=== PATIENT | female | born 1940 | race Caucasian/White ===

== ENCOUNTER 2021-08-03 05:00 | Outpatient (REF) | payer MEDICARE, SELFPAY ==
[2021-08-03 08:24] LABS: Absolute Lymphocyte Count 1.92 X10^3/uL (0.83-4.51); Absolute Neutrophil Count 4.1 X10^3/uL (2.0-7.7); Basophil# 0.05 X10^3/uL; Basophil% 0.7 % (0-1); Eosinophil# 0.49 X10^3/uL; Eosinophils% 6.8 % (0-5); Lymphocyte # 1.92 X10^3/ul (0.83-4.51); Lymphocyte % 26.7 % (19-41); Mean Corp Hgb Conc 33.3 g/dL (32-36); Mean Corpuscular Hgb 29.7 pg (27.0-32.0); Mean Platelet Vol. 9.3 fl (6.2-12.0); Monocyte# 0.57 X10^3/uL; Monocyte% 7.9 % (0-10); NRBC Flagged by Analyzer 0 % (0-5); Neutrophil # 4.14 X10^3/uL (2.7-7.7); Neutrophil % 57.6 % (47-70); Platelet Count 170 K/mm3 (150-450); RBC Distribution Width CV 16.1 % (11.6-14.6); RBC Distribution Width SD 53.4 fl (35.1-43.9); Red Blood Count 4.38 M/mm3 (4.2-5.4); White Blood Count 7.2 K/mm3 (4.4-11.0)
[2021-08-03 08:35] LABS: Anion Gap 9 (5-15); BUN 25 mg/dL (7-18); BUN/Creat Ratio 26.8 RATIO (10-20); Calcium,Total 8.8 mg/dL (8.5-10.1); Chloride 107 mmol/L (98-107); Creatinine, Serum 0.93 mg/dL (0.55-1.02); EST Glomerular Filtration Rate 61 mL/min (>60); Est Glom Filt Rate - Afr Amer 74 mL/min (>60); Glucose 92 mg/dL (74-106); Sodium Level 139 mmol/L (136-145)
== END 2021-08-03 23:59 | disposition home or self-care (01) ==
LOC: OLS.WHLTSB 05:00
PROVIDERS: PCP Family Medicine; Visit Provider Family Medicine
DX: M15.9 Polyosteoarthritis, unspecified (principal); Z23 Encounter for immunization; Z80.0 Family history of malignant neoplasm of digestive organs; Z86.010 Personal history of colon polyps; Z96.649 Presence of unspecified artificial hip joint
CPT/HCPCS: 36415; 80048; 85025

== ENCOUNTER 2021-10-15 04:00 | Outpatient (REF) | payer MEDICARE, SELFPAY ==
[2021-10-15 10:52] LABS: Hematocrit 42.4 % (37-47); Hemoglobin 13.9 g/dL (12.0-15.0); Mean Corp Hgb Conc 32.8 g/dL (32-36); Mean Corpuscular Hgb 29.4 pg (27.0-32.0); Mean Corpuscular Volume 89.8 fL (81-99); Mean Platelet Vol. 9.8 fl (6.2-12.0); Platelet Count 157 K/mm3 (150-450); RBC Distribution Width CV 15.8 % (11.6-14.6); RBC Distribution Width SD 52.1 fl (35.1-43.9); Red Blood Count 4.72 M/mm3 (4.2-5.4); White Blood Count 7.4 K/mm3 (4.4-11.0)
[2021-10-15 11:14] LABS: Anion Gap 8 (5-15); BUN 28 mg/dL (7-18); BUN/Creat Ratio 23.7 RATIO (10-20); Calcium,Total 8.8 mg/dL (8.5-10.1); Chloride 103 mmol/L (98-107); Creatinine, Serum 1.18 mg/dL (0.55-1.02); EST Glomerular Filtration Rate 47 mL/min (>60); Est Glom Filt Rate - Afr Amer 57 mL/min (>60); Glucose 86 mg/dL (74-106); Potassium 3.3 mmol/L (3.5-5.1); Sodium Level 138 mmol/L (136-145); Thyroid Stim Hormone (TSH) 0.91 uIU/mL (0.358-3.74)
== END 2021-10-15 23:59 | disposition home or self-care (01) ==
LOC: OLS.WHLTSB 04:00
PROVIDERS: PCP Family Medicine; Referring Provider Family Medicine; Visit Provider Family Medicine
DX: M15.9 Polyosteoarthritis, unspecified (principal); R60.0 Localized edema; R12 Heartburn; G90.09 Other idiopathic peripheral autonomic neuropathy; R32 Unspecified urinary incontinence; Z23 Encounter for immunization
CPT/HCPCS: 36415; 80048; 84443; 85027

== ENCOUNTER → 2022-01-31 | Outpatient (REF) | payer MEDICARE, SELFPAY ==
[2022-01-31 07:02] LABS: Basophil# 0.04 X10^3/uL; Basophil% 0.5 % (0-1); Eosinophil# 0.29 X10^3/uL; Hematocrit 38.6 % (37-47); Hemoglobin 12.6 g/dL (12.0-15.0); Lymphocyte % 31.6 % (19-41); Mean Corp Hgb Conc 32.6 g/dL (32-36); Mean Corpuscular Hgb 29.4 pg (27.0-32.0); Mean Platelet Vol. 9.6 fl (6.2-12.0); Monocyte# 0.63 X10^3/uL; Monocyte% 8.6 % (0-10); NRBC Flagged by Analyzer 0 % (0-5); Neutrophil # 4.01 X10^3/uL (2.7-7.7); Platelet Count 139 K/mm3 (150-450); RBC Distribution Width CV 15.9 % (11.6-14.6); Red Blood Count 4.29 M/mm3 (4.2-5.4); White Blood Count 7.3 K/mm3 (4.4-11.0)
[2022-01-31 07:16] LABS: Anion Gap 8 (5-15); BUN 31 mg/dL (7-18); BUN/Creat Ratio 31.1 RATIO (10-20); Calcium,Total 8.6 mg/dL (8.5-10.1); Chloride 108 mmol/L (98-107); EST Glomerular Filtration Rate 57 mL/min (>60); Est Glom Filt Rate - Afr Amer 69 mL/min (>60); Glucose 122 mg/dL (74-106); Potassium 3.3 mmol/L (3.5-5.1); Sodium Level 141 mmol/L (136-145)
== END | disposition home or self-care (01) ==
LOC: OLS.WHLTSB 05:00
PROVIDERS: PCP Family Medicine; Referring Provider Family Medicine; Visit Provider Family Medicine
DX: M15.9 Polyosteoarthritis, unspecified (principal); Z23 Encounter for immunization; Z80.0 Family history of malignant neoplasm of digestive organs; Z86.010 Personal history of colon polyps; Z96.649 Presence of unspecified artificial hip joint
CPT/HCPCS: 36415; 80048; 85025

== ENCOUNTER → 2022-04-19 | Outpatient (REF) | payer OTHER, SELFPAY ==
[2022-04-19 09:31] LABS: Cholesterol 151 mg/dL (200); High Density Lipoprotein 38 mg/dL; Potassium 3.3 mmol/L (3.5-5.1); Triglycerides 178 mg/dL; Very Low Density Lipoprotein 36 mg/dL (5-40)
== END ==
LOC: OLS.WHLTSB 05:00
PROVIDERS: PCP Family Medicine; Visit Provider Family Medicine
DX: E78.00 Pure hypercholesterolemia, unspecified (principal); M15.9 Polyosteoarthritis, unspecified; B35.4 Tinea corporis; H04.129 Dry eye syndrome of unspecified lacrimal gland; R60.0 Localized edema; R48.8 Other symbolic dysfunctions; R12 Heartburn; G90.09 Other idiopathic peripheral autonomic neuropathy
CPT/HCPCS: 36415; 80061; 84132

== ENCOUNTER → 2022-07-20 | Outpatient (REF) | payer OTHER, SELFPAY ==
[2022-07-20 09:17] LABS: Absolute Lymphocyte Count 2.22 X10^3/uL (0.83-4.51); Absolute Neutrophil Count 3.6 X10^3/uL (2.0-7.7); Basophil# 0.05 X10^3/uL; Basophil% 0.7 % (0-1); Eosinophil# 0.36 X10^3/uL; Eosinophils% 5.3 % (0-5); Hematocrit 42.1 % (37-47); Hemoglobin 13.6 g/dL (12.0-15.0); Lymphocyte # 2.22 X10^3/ul (0.83-4.51); Lymphocyte % 32.6 % (19-41); Mean Corp Hgb Conc 32.3 g/dL (32-36); Mean Corpuscular Hgb 29.2 pg (27.0-32.0); Mean Corpuscular Volume 90.3 fL (81-99); Mean Platelet Vol. 9.8 fl (6.2-12.0); Monocyte# 0.59 X10^3/uL; Monocyte% 8.7 % (0-10); NRBC Flagged by Analyzer 0 % (0-5); Neutrophil # 3.56 X10^3/uL (2.7-7.7); Neutrophil % 52.4 % (47-70); Platelet Count 141 K/mm3 (150-450); RBC Distribution Width CV 16.7 % (11.6-14.6); RBC Distribution Width SD 54.7 fl (35.1-43.9); Red Blood Count 4.66 M/mm3 (4.2-5.4); White Blood Count 6.8 K/mm3 (4.4-11.0)
[2022-07-20 09:34] LABS: Anion Gap 12 (5-15); BUN 25 mg/dL (7-18); BUN/Creat Ratio 22.1 RATIO (10-20); Calcium,Total 8.8 mg/dL (8.5-10.1); Chloride 105 mmol/L (98-107); Cholesterol 155 mg/dL (200); Creatinine, Serum 1.13 mg/dL (0.55-1.02); EST Glomerular Filtration Rate 49 mL/min (>60); Est Glom Filt Rate - Afr Amer 59 mL/min (>60); Glucose 95 mg/dL (74-106); High Density Lipoprotein 38 mg/dL; Potassium 3.7 mmol/L (3.5-5.1); Sodium Level 143 mmol/L (136-145); Triglycerides 160 mg/dL; Very Low Density Lipoprotein 32 mg/dL (5-40)
== END ==
LOC: OLS.WHLTSB 05:00
PROVIDERS: PCP Family Medicine; Visit Provider Family Medicine
DX: M15.9 Polyosteoarthritis, unspecified (principal); E55.9 Vitamin D deficiency, unspecified; I10 Essential (primary) hypertension; E78.00 Pure hypercholesterolemia, unspecified
CPT/HCPCS: 36415; 80048; 80061; 82306; 85025

== ENCOUNTER → 2023-01-17 | Outpatient (REF) | payer OTHER, SELFPAY ==
[2023-01-17 10:28] LABS: Anion Gap 7 (5-15); BUN 28 mg/dL (7-18); BUN/Creat Ratio 32.4 RATIO (10-20); Chloride 109 mmol/L (98-107); Cholesterol 196 mg/dL (200); Creatinine, Serum 0.86 mg/dL (0.55-1.02); EST Glomerular Filtration Rate 67 mL/min (>60); Est Glom Filt Rate - Afr Amer 81 mL/min (>60); Glucose 78 mg/dL (74-106); High Density Lipoprotein 39 mg/dL; Potassium 3.5 mmol/L (3.5-5.1); Sodium Level 144 mmol/L (136-145); Triglycerides 275 mg/dL; Very Low Density Lipoprotein 55 mg/dL (5-40)
[2023-01-17 10:31] LABS: Absolute Lymphocyte Count 2.14 X10^3/uL (0.83-4.51); Absolute Neutrophil Count 2.7 X10^3/uL (2.0-7.7); Basophil# 0.04 X10^3/uL; Basophil% 0.7 % (0-1); Eosinophil# 0.22 X10^3/uL; Eosinophils% 3.9 % (0-5); Hematocrit 43.3 % (37-47); Hemoglobin 13.9 g/dL (12.0-15.0); Lymphocyte # 2.14 X10^3/ul (0.83-4.51); Lymphocyte % 38.4 % (19-41); Mean Corp Hgb Conc 32.1 g/dL (32-36); Mean Corpuscular Hgb 29.4 pg (27.0-32.0); Mean Corpuscular Volume 91.5 fL (81-99); Mean Platelet Vol. 9.8 fl (6.2-12.0); NRBC Flagged by Analyzer 0 % (0-5); Neutrophil # 2.67 X10^3/uL (2.7-7.7); Neutrophil % 47.8 % (47-70); Platelet Count 125 K/mm3 (150-450); RBC Distribution Width CV 16.6 % (11.6-14.6); RBC Distribution Width SD 56.1 fl (35.1-43.9); Red Blood Count 4.73 M/mm3 (4.2-5.4); White Blood Count 5.6 K/mm3 (4.4-11.0)
== END ==
LOC: OLS.WHLTSB 05:00
PROVIDERS: PCP Family Medicine; Visit Provider Internal Medicine
DX: M15.9 Polyosteoarthritis, unspecified (principal); E78.00 Pure hypercholesterolemia, unspecified; I10 Essential (primary) hypertension
CPT/HCPCS: 36415; 80048; 80061; 85025

== ENCOUNTER → 2023-04-19 | Outpatient (REF) | payer MEDICARE, SELFPAY ==
[2023-04-19 09:58] LABS: Cholesterol 156 mg/dL (200); High Density Lipoprotein 49 mg/dL; Triglycerides 205 mg/dL; Very Low Density Lipoprotein 41 mg/dL (5-40)
== END ==
LOC: OLS.WHLTSB 05:00
PROVIDERS: PCP Family Medicine; Visit Provider Nurse Practitioner Adult Health
DX: E78.00 Pure hypercholesterolemia, unspecified (principal); M15.9 Polyosteoarthritis, unspecified; N32.81 Overactive bladder; E55.9 Vitamin D deficiency, unspecified
CPT/HCPCS: 36415; 80061

== ENCOUNTER → 2023-05-15 | Outpatient (REF) | payer MEDICARE, SELFPAY | LOC: OLS.WHLTSB 15:00 | PROVIDERS: PCP Family Medicine; Referring Provider Internal Medicine; Visit Provider Internal Medicine | DX: S81.802A Unspecified open wound, left lower leg, initial encounter (principal) | CPT/HCPCS: 87070; 87077; 87186; 87205 ==

== ENCOUNTER → 2023-06-02 11:53 | Outpatient (REF) | payer MEDICARE, SELFPAY | LOC: LABSPEC 11:53 | PROVIDERS: PCP Family Medicine; Visit Provider Internal Medicine | DX: A49.02 Methicillin resistant Staphylococcus aureus infection, unspecified site (principal) | CPT/HCPCS: 87070; 87075; 87077; 87186; 87205 ==

== ENCOUNTER → 2023-07-05 | Outpatient (REF) | payer MEDICARE, SELFPAY ==
[2023-07-05 06:21] LABS: Absolute Lymphocyte Count 2.48 X10^3/uL (0.83-4.51); Absolute Neutrophil Count 3.5 X10^3/uL (2.0-7.7); Basophil# 0.04 X10^3/uL; Basophil% 0.6 % (0-1); Eosinophil# 0.24 X10^3/uL; Eosinophils% 3.5 % (0-5); Hematocrit 40.5 % (37-47); Hemoglobin 13.3 g/dL (12.0-15.0); Lymphocyte # 2.48 X10^3/ul (0.83-4.51); Lymphocyte % 36.2 % (19-41); Mean Corp Hgb Conc 32.8 g/dL (32-36); Mean Corpuscular Hgb 30.1 pg (27.0-32.0); Mean Corpuscular Volume 91.6 fL (81-99); Mean Platelet Vol. 9.9 fl (6.2-12.0); Monocyte# 0.61 X10^3/uL; Monocyte% 8.9 % (0-10); NRBC Flagged by Analyzer 0 % (0-5); Neutrophil # 3.45 X10^3/uL (2.7-7.7); Neutrophil % 50.4 % (47-70); Platelet Count 180 K/mm3 (150-450); RBC Distribution Width CV 14.8 % (11.6-14.6); RBC Distribution Width SD 50.5 fl (35.1-43.9); Red Blood Count 4.42 M/mm3 (4.2-5.4); White Blood Count 6.9 K/mm3 (4.4-11.0)
[2023-07-05 06:57] LABS: ALB/GLOB Ratio 0.8 RATIO (0.9-2.4); AST(SGOT) 22 U/L (15-37); Alanine Aminotransfer ALT/SGPT 22 U/L (13-56); Albumin, Serum 3.3 g/dL (3.2-5.0); Alkaline Phosphatase 88 U/L (45-117); Anion Gap 9 (5-15); BUN 57 mg/dL (7-18); BUN/Creat Ratio 51.8 RATIO (10-20); Calcium,Total 8.8 mg/dL (8.5-10.1); Chloride 108 mmol/L (98-107); EST Glomerular Filtration Rate 50 mL/min (>60); Est Glom Filt Rate - Afr Amer 61 mL/min (>60); Globulin 3.9 g/dL (2.2-4.2); Glucose 97 mg/dL (74-106); Potassium 3.4 mmol/L (3.5-5.1); Protein, Total 7.2 g/dL (6.4-8.2); Sodium Level 142 mmol/L (136-145)
[2023-07-05 10:06] LABS: Vitamin B12 207 pg/mL (211-911); Vitamin D,25 Hydroxy 49.2 ng/mL
== END ==
LOC: OLS.WHLTSB 05:00
PROVIDERS: PCP Family Medicine
DX: F32.A Depression, unspecified (principal); R53.83 Other fatigue; E55.9 Vitamin D deficiency, unspecified; Z79.899 Other long term (current) drug therapy
CPT/HCPCS: 36415; 80053; 82306; 82607; 84443; 85025

== ENCOUNTER → 2023-07-13 | Outpatient (REF) | payer MEDICARE, SELFPAY ==
[2023-07-13 09:47] LABS: Potassium 3.6 mmol/L (3.5-5.1)
== END ==
LOC: OLS.WHLTSB 05:00
PROVIDERS: PCP Family Medicine; Visit Provider Internal Medicine
DX: E87.6 Hypokalemia (principal)
CPT/HCPCS: 36415; 84132

== ENCOUNTER → 2023-07-20 | Outpatient (REF) | payer MEDICARE, SELFPAY ==
[2023-07-20 08:52] LABS: Absolute Lymphocyte Count 2.27 X10^3/uL (0.83-4.51); Absolute Neutrophil Count 2.3 X10^3/uL (2.0-7.7); Basophil# 0.04 X10^3/uL; Basophil% 0.8 % (0-1); Eosinophil# 0.21 X10^3/uL; Eosinophils% 3.9 % (0-5); Hematocrit 41.8 % (37-47); Hemoglobin 13.4 g/dL (12.0-15.0); Lymphocyte # 2.27 X10^3/ul (0.83-4.51); Lymphocyte % 42.6 % (19-41); Mean Corp Hgb Conc 32.1 g/dL (32-36); Mean Corpuscular Hgb 29.7 pg (27.0-32.0); Mean Corpuscular Volume 92.7 fL (81-99); Mean Platelet Vol. 10.4 fl (6.2-12.0); Monocyte# 0.47 X10^3/uL; Monocyte% 8.8 % (0-10); NRBC Flagged by Analyzer 0 % (0-5); Neutrophil # 2.33 X10^3/uL (2.7-7.7); Neutrophil % 43.7 % (47-70); Platelet Count 159 K/mm3 (150-450); RBC Distribution Width CV 15.1 % (11.6-14.6); RBC Distribution Width SD 51.7 fl (35.1-43.9); Red Blood Count 4.51 M/mm3 (4.2-5.4); White Blood Count 5.3 K/mm3 (4.4-11.0)
[2023-07-20 09:16] LABS: Anion Gap 9 (5-15); BUN 39 mg/dL (7-18); BUN/Creat Ratio 34.5 RATIO (10-20); Calcium,Total 8.8 mg/dL (8.5-10.1); Chloride 106 mmol/L (98-107); Cholesterol 138 mg/dL (200); Creatinine, Serum 1.13 mg/dL (0.55-1.02); EST Glomerular Filtration Rate 49 mL/min (>60); Est Glom Filt Rate - Afr Amer 59 mL/min (>60); Glucose 92 mg/dL (74-106); High Density Lipoprotein 51 mg/dL; Potassium 3.5 mmol/L (3.5-5.1); Sodium Level 142 mmol/L (136-145); Triglycerides 105 mg/dL; Very Low Density Lipoprotein 21 mg/dL (5-40)
[2023-07-20 09:22] LABS: Vitamin D,25 Hydroxy 62.2 ng/mL
== END ==
LOC: OLS.WHLTSB 05:00
PROVIDERS: PCP Family Medicine; Visit Provider Nurse Practitioner Adult Health
DX: E78.00 Pure hypercholesterolemia, unspecified (principal); I10 Essential (primary) hypertension; E55.9 Vitamin D deficiency, unspecified; M15.9 Polyosteoarthritis, unspecified
CPT/HCPCS: 36415; 80048; 80061; 82306; 85025

== ENCOUNTER → 2023-09-12 | Outpatient (REF) | payer MEDICARE, SELFPAY ==
[2023-09-12 10:18] LABS: Vitamin B12 881 pg/mL (211-911)
== END ==
LOC: OLS.WHLTSB 05:00
PROVIDERS: PCP Family Medicine; Visit Provider Internal Medicine
DX: D51.9 Vitamin B12 deficiency anemia, unspecified (principal)
CPT/HCPCS: 36415; 82607

== ENCOUNTER → 2023-10-24 | Outpatient (REF) | payer MEDICARE, SELFPAY ==
[2023-10-24 09:37] LABS: Cholesterol 151 mg/dL (200); High Density Lipoprotein 53 mg/dL; Triglycerides 92 mg/dL; Very Low Density Lipoprotein 18 mg/dL (5-40)
== END ==
LOC: OLS.WHLTSB 07:32
PROVIDERS: PCP Family Medicine; Visit Provider Internal Medicine
DX: E78.00 Pure hypercholesterolemia, unspecified (principal)
CPT/HCPCS: 36415; 80061

== ENCOUNTER → 2023-12-05 | Outpatient (REF) | payer MEDICARE, SELFPAY ==
[2023-12-05 10:21] LABS: Vitamin B12 1190 pg/mL (211-911)
== END ==
LOC: OLS.WHLTSB 05:00
PROVIDERS: PCP Family Medicine; Visit Provider Internal Medicine
DX: D51.9 Vitamin B12 deficiency anemia, unspecified (principal)
CPT/HCPCS: 36415; 82607

== ENCOUNTER → 2024-01-16 | Outpatient (REF) | payer MEDICARE, SELFPAY ==
[2024-01-16 06:52] LABS: Absolute Lymphocyte Count 2.05 X10^3/uL (0.83-4.51); Absolute Neutrophil Count 3.7 X10^3/uL (2.0-7.7); Basophil# 0.04 X10^3/uL; Basophil% 0.6 % (0-1); Eosinophil# 0.22 X10^3/uL; Eosinophils% 3.3 % (0-5); Hematocrit 40.1 % (37-47); Hemoglobin 12.8 g/dL (12.0-15.0); Lymphocyte # 2.05 X10^3/ul (0.83-4.51); Lymphocyte % 31.1 % (19-41); Mean Corp Hgb Conc 31.9 g/dL (32-36); Mean Corpuscular Hgb 29.4 pg (27.0-32.0); Mean Platelet Vol. 9.8 fl (6.2-12.0); Monocyte# 0.56 X10^3/uL; Monocyte% 8.5 % (0-10); NRBC Flagged by Analyzer 0 % (0-5); Neutrophil # 3.71 X10^3/uL (2.7-7.7); Neutrophil % 56.2 % (47-70); Platelet Count 171 K/mm3 (150-450); RBC Distribution Width CV 15.4 % (11.6-14.6); RBC Distribution Width SD 51.7 fl (35.1-43.9); Red Blood Count 4.36 M/mm3 (4.2-5.4); White Blood Count 6.6 K/mm3 (4.4-11.0)
[2024-01-16 07:09] LABS: Anion Gap 6 (5-15); BUN 37 mg/dL (7-18); BUN/Creat Ratio 34.9 RATIO (10-20); Chloride 110 mmol/L (98-107); Cholesterol 142 mg/dL (200); Creatinine, Serum 1.06 mg/dL (0.55-1.02); EST Glomerular Filtration Rate 53 mL/min (>60); Est Glom Filt Rate - Afr Amer 64 mL/min (>60); Glucose 131 mg/dL (74-106); High Density Lipoprotein 48 mg/dL; Potassium 3.5 mmol/L (3.5-5.1); Sodium Level 143 mmol/L (136-145); Triglycerides 126 mg/dL; Very Low Density Lipoprotein 25 mg/dL (5-40)
== END ==
LOC: OLS.WHLTSB 05:00
PROVIDERS: PCP Family Medicine; Visit Provider Internal Medicine
DX: E78.00 Pure hypercholesterolemia, unspecified (principal)
CPT/HCPCS: 36415; 80048; 80061; 85025

== ENCOUNTER → 2024-02-27 | Outpatient (REF) | payer MEDICARE, SELFPAY ==
[2024-02-27 08:19] LABS: Vitamin B12 375 pg/mL (211-911)
== END ==
LOC: OLS.WHLTSB 05:00
PROVIDERS: PCP Family Medicine; Visit Provider Internal Medicine
DX: D51.9 Vitamin B12 deficiency anemia, unspecified (principal)
CPT/HCPCS: 36415; 82607

== ENCOUNTER → 2024-03-19 | Outpatient (REF) | payer MEDICARE, SELFPAY ==
[2024-03-19 07:28] LABS: Troponin-I HS 9 pg/mL (3.0-54.0)
== END ==
LOC: OLS.WHLTSB 05:00
PROVIDERS: PCP Family Medicine; Visit Provider Internal Medicine
DX: R07.89 Other chest pain (principal)
CPT/HCPCS: 36415; 84484

== ENCOUNTER → 2024-03-20 | Outpatient (REF) | payer MEDICARE, SELFPAY ==
[2024-03-20 07:08] LABS: Absolute Lymphocyte Count 1.59 X10^3/uL (0.83-4.51); Absolute Neutrophil Count 7.1 X10^3/uL (2.0-7.7); Basophil# 0.04 X10^3/uL; Basophil% 0.4 % (0-1); Eosinophil# 0.25 X10^3/uL; Eosinophils% 2.6 % (0-5); Hematocrit 40.8 % (37-47); Hemoglobin 13.2 g/dL (12.0-15.0); Lymphocyte # 1.59 X10^3/ul (0.83-4.51); Lymphocyte % 16.4 % (19-41); Mean Corp Hgb Conc 32.4 g/dL (32-36); Mean Corpuscular Hgb 29.1 pg (27.0-32.0); Mean Corpuscular Volume 90.1 fL (81-99); Mean Platelet Vol. 9.9 fl (6.2-12.0); Monocyte# 0.72 X10^3/uL; Monocyte% 7.4 % (0-10); NRBC Flagged by Analyzer 0 % (0-5); Neutrophil # 7.06 X10^3/uL (2.7-7.7); Neutrophil % 72.8 % (47-70); Platelet Count 166 K/mm3 (150-450); RBC Distribution Width CV 15.6 % (11.6-14.6); RBC Distribution Width SD 50.9 fl (35.1-43.9); Red Blood Count 4.53 M/mm3 (4.2-5.4); White Blood Count 9.7 K/mm3 (4.4-11.0)
[2024-03-20 07:21] LABS: Anion Gap 8 (5-15); BUN 41 mg/dL (7-18); BUN/Creat Ratio 31.5 RATIO (10-20); Calcium,Total 8.9 mg/dL (8.5-10.1); Chloride 107 mmol/L (98-107); EST Glomerular Filtration Rate 42 mL/min (>60); Est Glom Filt Rate - Afr Amer 50 mL/min (>60); Glucose 121 mg/dL (74-106); Potassium 3.2 mmol/L (3.5-5.1); Sodium Level 141 mmol/L (136-145); Troponin-I HS 8 pg/mL (3.0-54.0)
== END ==
LOC: OLS.WHLTSB 05:00
PROVIDERS: PCP Family Medicine; Visit Provider Internal Medicine
DX: R07.89 Other chest pain (principal)
CPT/HCPCS: 36415; 80048; 84484; 85025

== ENCOUNTER → 2024-03-21 | Outpatient (REF) | payer MEDICARE, SELFPAY ==
[2024-03-21 07:47] LABS: Troponin-I HS 10 pg/mL (3.0-54.0)
== END ==
LOC: OLS.WHLTSB 05:00
PROVIDERS: PCP Family Medicine; Visit Provider Internal Medicine
DX: R07.89 Other chest pain (principal)
CPT/HCPCS: 36415; 84484

== ENCOUNTER → 2024-04-22 05:00 | Outpatient (REF) | payer MEDICARE, SELFPAY ==
[2024-04-22 08:41] LABS: Absolute Lymphocyte Count 1.88 X10^3/uL (0.83-4.51); Absolute Neutrophil Count 4.1 X10^3/uL (2.0-7.7); Basophil# 0.04 X10^3/uL; Basophil% 0.6 % (0-1); Eosinophil# 0.23 X10^3/uL; Eosinophils% 3.4 % (0-5); Hematocrit 40.6 % (37-47); Hemoglobin 13.3 g/dL (12.0-15.0); Lymphocyte # 1.88 X10^3/ul (0.83-4.51); Lymphocyte % 27.9 % (19-41); Mean Corp Hgb Conc 32.8 g/dL (32-36); Mean Corpuscular Hgb 29.4 pg (27.0-32.0); Mean Corpuscular Volume 89.6 fL (81-99); Mean Platelet Vol. 9.9 fl (6.2-12.0); Monocyte# 0.49 X10^3/uL; Monocyte% 7.3 % (0-10); NRBC Flagged by Analyzer 0 % (0-5); Neutrophil # 4.08 X10^3/uL (2.7-7.7); Neutrophil % 60.5 % (47-70); Platelet Count 208 K/mm3 (150-450); RBC Distribution Width CV 15.4 % (11.6-14.6); RBC Distribution Width SD 50.7 fl (35.1-43.9); Red Blood Count 4.53 M/mm3 (4.2-5.4); White Blood Count 6.7 K/mm3 (4.4-11.0)
[2024-04-22 11:46] LABS: Anion Gap 9 (5-15); BUN 33 mg/dL (7-18); BUN/Creat Ratio 30.3 RATIO (10-20); Chloride 107 mmol/L (98-107); Creatinine, Serum 1.09 mg/dL (0.55-1.02); EST Glomerular Filtration Rate 51 mL/min (>60); Est Glom Filt Rate - Afr Amer 62 mL/min (>60); Glucose 108 mg/dL (74-106); Potassium 3.3 mmol/L (3.5-5.1); Sodium Level 140 mmol/L (136-145)
[2024-04-23 08:55] LABS: Cholesterol 138 mg/dL (200); High Density Lipoprotein 44 mg/dL; Triglycerides 184 mg/dL; Very Low Density Lipoprotein 37 mg/dL (5-40)
== END ==
LOC: OLS.WHLTSB 05:00
PROVIDERS: PCP Family Medicine; Visit Provider Internal Medicine
DX: I10 Essential (primary) hypertension (principal)
CPT/HCPCS: 36415; 80048; 80061; 85025

== ENCOUNTER → 2024-04-28 04:00 | Outpatient (REF) | payer MEDICARE, SELFPAY ==
[2024-04-28 08:34] LABS: Potassium 3.9 mmol/L (3.5-5.1); Thyroid Stim Hormone (TSH) 0.896 uIU/mL (0.358-3.740)
== END ==
LOC: OLS.WHLTSB 04:00
PROVIDERS: PCP Family Medicine; Visit Provider Internal Medicine
DX: E78.00 Pure hypercholesterolemia, unspecified (principal); E87.6 Hypokalemia
CPT/HCPCS: 36415; 84132; 84443

== ENCOUNTER → 2024-05-19 05:00 | Outpatient (REF) | payer MEDICARE, SELFPAY ==
[2024-05-19 09:39] LABS: Absolute Lymphocyte Count 1.67 X10^3/uL (0.83-4.51); Absolute Neutrophil Count 3.7 X10^3/uL (2.0-7.7); Basophil# 0.04 X10^3/uL; Basophil% 0.6 % (0-1); Eosinophil# 0.32 X10^3/uL; Eosinophils% 5.2 % (0-5); Hematocrit 42.1 % (37-47); Hemoglobin 13.3 g/dL (12.0-15.0); Lymphocyte # 1.67 X10^3/ul (0.83-4.51); Mean Corp Hgb Conc 31.6 g/dL (32-36); Mean Corpuscular Hgb 29.4 pg (27.0-32.0); Mean Corpuscular Volume 93.1 fL (81-99); Monocyte# 0.48 X10^3/uL; Monocyte% 7.8 % (0-10); NRBC Flagged by Analyzer 0 % (0-5); Neutrophil # 3.65 X10^3/uL (2.7-7.7); Neutrophil % 59.1 % (47-70); Platelet Count 228 K/mm3 (150-450); RBC Distribution Width CV 15.9 % (11.6-14.6); RBC Distribution Width SD 54.2 fl (35.1-43.9); Red Blood Count 4.52 M/mm3 (4.2-5.4); White Blood Count 6.2 K/mm3 (4.4-11.0)
[2024-05-19 10:06] LABS: Anion Gap 11 (5-15); BUN 39 mg/dL (7-18); BUN/Creat Ratio 27.5 RATIO (10-20); Calcium,Total 9.3 mg/dL (8.5-10.1); Chloride 106 mmol/L (98-107); Creatinine, Serum 1.42 mg/dL (0.55-1.02); EST Glomerular Filtration Rate 38 mL/min (>60); Est Glom Filt Rate - Afr Amer 45 mL/min (>60); Glucose 121 mg/dL (74-106); Potassium 3.4 mmol/L (3.5-5.1); Sodium Level 142 mmol/L (136-145)
== END ==
LOC: OLS.WHLTSB 05:00
PROVIDERS: PCP Family Medicine; Visit Provider Internal Medicine
DX: E87.6 Hypokalemia (principal)
CPT/HCPCS: 36415; 80048; 85025

== ENCOUNTER → 2024-05-21 05:00 | Outpatient (REF) | payer MEDICARE, SELFPAY ==
[2024-05-21 09:56] LABS: Vitamin B12 325 pg/mL (211-911)
== END ==
LOC: OLS.WHLTSB 05:00
PROVIDERS: PCP Family Medicine; Visit Provider Internal Medicine
DX: D51.9 Vitamin B12 deficiency anemia, unspecified (principal)
CPT/HCPCS: 36415; 82607

== ENCOUNTER → 2024-05-26 05:00 | Outpatient (REF) | payer MEDICARE, SELFPAY ==
[2024-05-26 09:39] LABS: Anion Gap 10 (5-15); BUN 35 mg/dL (7-18); BUN/Creat Ratio 27.3 RATIO (10-20); Calcium,Total 8.8 mg/dL (8.5-10.1); Chloride 108 mmol/L (98-107); Creatinine, Serum 1.28 mg/dL (0.55-1.02); EST Glomerular Filtration Rate 42 mL/min (>60); Est Glom Filt Rate - Afr Amer 51 mL/min (>60); Glucose 103 mg/dL (74-106); Potassium 3.5 mmol/L (3.5-5.1); Sodium Level 142 mmol/L (136-145)
== END ==
LOC: OLS.WHLTSB 05:00
PROVIDERS: PCP Family Medicine; Visit Provider Internal Medicine
DX: E87.6 Hypokalemia (principal); M15.9 Polyosteoarthritis, unspecified
CPT/HCPCS: 36415; 80048

== ENCOUNTER → 2024-06-09 05:00 | Outpatient (REF) | payer MEDICARE, SELFPAY ==
[2024-06-09 07:48] LABS: Anion Gap 10 (5-15); BUN 38 mg/dL (7-18); BUN/Creat Ratio 32.2 RATIO (10-20); Calcium,Total 9.7 mg/dL (8.5-10.1); Chloride 103 mmol/L (98-107); Creatinine, Serum 1.18 mg/dL (0.55-1.02); EST Glomerular Filtration Rate 46 mL/min (>60); Est Glom Filt Rate - Afr Amer 56 mL/min (>60); Glucose 108 mg/dL (74-106); Potassium 3.5 mmol/L (3.5-5.1); Sodium Level 139 mmol/L (136-145)
== END ==
LOC: OLS.WHLTSB 05:00
PROVIDERS: PCP Family Medicine; Visit Provider Internal Medicine
DX: E87.6 Hypokalemia (principal)
CPT/HCPCS: 36415; 80048

== ENCOUNTER → 2024-06-16 04:00 | Outpatient (REF) | payer MEDICARE, SELFPAY ==
[2024-06-16 08:33] LABS: Absolute Lymphocyte Count 1.95 X10^3/uL (0.83-4.51); Absolute Neutrophil Count 5.1 X10^3/uL (2.0-7.7); Basophil# 0.04 X10^3/uL; Basophil% 0.5 % (0-1); Eosinophils% 3.7 % (0-5); Hematocrit 37.6 % (37-47); Hemoglobin 12.1 g/dL (12.0-15.0); Lymphocyte # 1.95 X10^3/ul (0.83-4.51); Lymphocyte % 23.9 % (19-41); Mean Corp Hgb Conc 32.2 g/dL (32-36); Mean Corpuscular Hgb 29.4 pg (27.0-32.0); Mean Corpuscular Volume 91.5 fL (81-99); Monocyte# 0.75 X10^3/uL; Monocyte% 9.2 % (0-10); NRBC Flagged by Analyzer 0 % (0-5); Neutrophil # 5.07 X10^3/uL (2.7-7.7); Neutrophil % 62.2 % (47-70); Platelet Count 189 K/mm3 (150-450); RBC Distribution Width CV 15.1 % (11.6-14.6); RBC Distribution Width SD 50.4 fl (35.1-43.9); Red Blood Count 4.11 M/mm3 (4.2-5.4); White Blood Count 8.2 K/mm3 (4.4-11.0)
== END ==
LOC: OLS.WHLTSB 04:00
PROVIDERS: PCP Family Medicine; Visit Provider Internal Medicine
DX: I10 Essential (primary) hypertension (principal); M15.9 Polyosteoarthritis, unspecified; D51.9 Vitamin B12 deficiency anemia, unspecified
CPT/HCPCS: 36415; 85025

== ENCOUNTER → 2024-06-23 05:00 | Outpatient (REF) | payer MEDICARE, SELFPAY ==
[2024-06-23 08:12] LABS: Anion Gap 10 (5-15); BUN 33 mg/dL (7-18); BUN/Creat Ratio 29.5 RATIO (10-20); Calcium,Total 9.2 mg/dL (8.5-10.1); Chloride 106 mmol/L (98-107); Creatinine, Serum 1.12 mg/dL (0.55-1.02); EST Glomerular Filtration Rate 49 mL/min (>60); Est Glom Filt Rate - Afr Amer 60 mL/min (>60); Glucose 89 mg/dL (74-106); Potassium 3.4 mmol/L (3.5-5.1); Sodium Level 141 mmol/L (136-145)
== END ==
LOC: OLS.WHLTSB 05:00
PROVIDERS: PCP Family Medicine; Visit Provider Internal Medicine
DX: E87.6 Hypokalemia (principal)
CPT/HCPCS: 36415; 80048

== ENCOUNTER → 2024-06-25 05:00 | Outpatient (REF) | payer MEDICARE, SELFPAY ==
[2024-06-25 09:11] LABS: Potassium 3.8 mmol/L (3.5-5.1)
== END ==
LOC: OLS.WHLTSB 05:00
PROVIDERS: PCP Family Medicine; Visit Provider Internal Medicine
DX: E87.6 Hypokalemia (principal); M15.9 Polyosteoarthritis, unspecified; Z91.81 History of falling; L24.0 Irritant contact dermatitis due to detergents
CPT/HCPCS: 36415; 84132

== ENCOUNTER → 2024-07-07 05:00 | Outpatient (REF) | payer MEDICARE, SELFPAY ==
[2024-07-07 07:45] LABS: Absolute Lymphocyte Count 1.46 X10^3/uL (0.83-4.51); Absolute Neutrophil Count 3.2 X10^3/uL (2.0-7.7); Basophil# 0.05 X10^3/uL; Basophil% 0.9 % (0-1); Eosinophil# 0.35 X10^3/uL; Eosinophils% 6.3 % (0-5); Hematocrit 36.5 % (37-47); Hemoglobin 11.7 g/dL (12.0-15.0); Lymphocyte # 1.46 X10^3/ul (0.83-4.51); Lymphocyte % 26.4 % (19-41); Mean Corp Hgb Conc 32.1 g/dL (32-36); Mean Corpuscular Hgb 29.5 pg (27.0-32.0); Mean Corpuscular Volume 92.2 fL (81-99); Mean Platelet Vol. 9.9 fl (6.2-12.0); Monocyte# 0.51 X10^3/uL; Monocyte% 9.2 % (0-10); NRBC Flagged by Analyzer 0 % (0-5); Neutrophil # 3.15 X10^3/uL (2.7-7.7); Neutrophil % 56.8 % (47-70); Platelet Count 193 K/mm3 (150-450); RBC Distribution Width CV 15.3 % (11.6-14.6); RBC Distribution Width SD 52.2 fl (35.1-43.9); Red Blood Count 3.96 M/mm3 (4.2-5.4); White Blood Count 5.5 K/mm3 (4.4-11.0)
[2024-07-07 08:00] LABS: Anion Gap 8 (5-15); BUN 42 mg/dL (7-18); BUN/Creat Ratio 30.9 RATIO (10-20); Calcium,Total 8.8 mg/dL (8.5-10.1); Chloride 109 mmol/L (98-107); Creatinine, Serum 1.36 mg/dL (0.55-1.02); EST Glomerular Filtration Rate 39 mL/min (>60); Est Glom Filt Rate - Afr Amer 48 mL/min (>60); Glucose 103 mg/dL (74-106); Potassium 4.6 mmol/L (3.5-5.1); Sodium Level 142 mmol/L (136-145)
== END ==
LOC: OLS.WHLTSB 05:00
PROVIDERS: PCP Internal Medicine; Visit Provider Internal Medicine
DX: I10 Essential (primary) hypertension (principal); M15.9 Polyosteoarthritis, unspecified; Z91.81 History of falling; R07.89 Other chest pain; R13.12 Dysphagia, oropharyngeal phase
CPT/HCPCS: 36415; 80048; 83880; 85025

== ENCOUNTER → 2024-07-21 04:00 | Outpatient (REF) | payer MEDICARE, SELFPAY ==
[2024-07-21 08:18] LABS: Anion Gap 8 (5-15); BUN 41 mg/dL (7-18); BUN/Creat Ratio 31.3 RATIO (10-20); Calcium,Total 9.1 mg/dL (8.5-10.1); Chloride 108 mmol/L (98-107); Cholesterol 149 mg/dL (200); Creatinine, Serum 1.31 mg/dL (0.55-1.02); EST Glomerular Filtration Rate 41 mL/min (>60); Est Glom Filt Rate - Afr Amer 50 mL/min (>60); Glucose 94 mg/dL (74-106); High Density Lipoprotein 54 mg/dL; Potassium 4.1 mmol/L (3.5-5.1); Sodium Level 140 mmol/L (136-145); Triglycerides 113 mg/dL; Very Low Density Lipoprotein 23 mg/dL (5-40)
[2024-07-21 08:26] LABS: Vitamin B12 331 pg/mL (211-911); Vitamin D,25 Hydroxy 37.7 ng/mL
== END ==
LOC: OLS.WHLTSB 04:00
PROVIDERS: PCP Internal Medicine; Referring Provider Internal Medicine; Visit Provider Internal Medicine
DX: E87.6 Hypokalemia (principal); M15.9 Polyosteoarthritis, unspecified; D51.9 Vitamin B12 deficiency anemia, unspecified; E78.00 Pure hypercholesterolemia, unspecified; E55.9 Vitamin D deficiency, unspecified
CPT/HCPCS: 36415; 80048; 80061; 82306; 82607

== ENCOUNTER → 2024-07-29 | Outpatient (CLI) | payer MEDICARE, MEDICAID, SELFPAY ==
--- NOTE | 2024-07-31 12:31 | STRESSREP_ITS ---
Stress Test Report Date: 07/29/2024 Procedure: Pharmacologic stress nuclear imaging study Indications: Chest pain Consent: Per the patient Procedure: The patient underwent pharmacologic (Regadenoson 0.4mg ) evaluation with a peak heart rate of 82 beats per minute (60%predicted maximal heart rate) and a peak blood pressure of 175/75 mmHg. The baseline ECG demonstrated sinus rhythm. The peak pharmacologic ECG demonstrated no ischemic changes. Rare PVC noted. There was no complaint of chest discomfort during pharmacologic infusion or recovery. The patient was injected with 14.1 millicuries of technetium 99m Cardiolite and subsequently rest SPECT Cardiolite nuclear imaging was obtained in the horizontal long, vertical long, and short axis views. The patient underwent pharmacologic (Regadenoson) evaluation. The patient was injected with 43 point millicuries of technetium 99m Cardiolite and subsequently stress SPECT Cardiolite nuclear imaging was obtained in the horizontal long, vertical long, and short axis views. A gated Cardiolite study at peak stress was obtained. The examination was stopped secondary to completion of protocol. Rest and stress SPECT Cardiolite nuclear imaging status post realignment, normalization, and attenuation correction demonstrate no fixed or reversible perfusion defects. There is end systolic thickening and brightening. The gated Cardiolite study demonstrates myocardial thickening and inward wall motion. The reported LVEF is 66%. Impression: 1. Pharmacologic (Regadenoson) evaluation 2. Peak pharmacologic ECG with no ischemic changes. 3. No significant cardiac dysrhythmias noted. 5. Rest and stress SPECT Cardiolite nuclear imaging demonstrate relative uniform tracer uptake and myocardial perfusion appearing within normal limits. 6. The gated Cardiolite study reports an LVEF of 66%. This note was generated with [employer] software. It may contain incorrect words, spelling, and punctuation that were not noted in checking the note before signing.
== END | disposition home or self-care (01) ==
LOC: NM 06:32
PROVIDERS: PCP Internal Medicine; Referring Provider Internal Medicine Cardiovascular Disease; Visit Provider Internal Medicine Cardiovascular Disease
DX: R07.9 Chest pain, unspecified (principal); R06.09 Other forms of dyspnea
CPT/HCPCS: 78452; 93017; A9500; A4216; J2785

== ENCOUNTER → 2024-08-04 | Outpatient (REF) | payer MEDICARE, MEDICAID, SELFPAY ==
[2024-08-04 08:04] LABS: Anion Gap 7 (5-15); BUN 55 mg/dL (7-18); BUN/Creat Ratio 33.3 RATIO (10-20); Calcium,Total 8.2 mg/dL (8.5-10.1); Chloride 109 mmol/L (98-107); Creatinine, Serum 1.65 mg/dL (0.55-1.02); EST Glomerular Filtration Rate 32 mL/min (>60); Est Glom Filt Rate - Afr Amer 38 mL/min (>60); Glucose 100 mg/dL (74-106); Potassium 4.2 mmol/L (3.5-5.1); Sodium Level 140 mmol/L (136-145); Thyroid Stim Hormone (TSH) 0.921 uIU/mL (0.358-3.740)
== END ==
LOC: OLS.WHLTSB 04:00
PROVIDERS: PCP Internal Medicine; Referring Provider Internal Medicine; Visit Provider Internal Medicine
DX: E87.6 Hypokalemia (principal); M15.9 Polyosteoarthritis, unspecified; Z79.899 Other long term (current) drug therapy
CPT/HCPCS: 36415; 80048; 84443

== ENCOUNTER → 2024-08-13 05:54 | Outpatient (REF) | payer MEDICARE, MEDICAID, SELFPAY ==
[2024-08-13 08:47] LABS: Anion Gap 8 (5-15); BUN 45 mg/dL (7-18); BUN/Creat Ratio 33.8 RATIO (10-20); Calcium,Total 8.2 mg/dL (8.5-10.1); Chloride 110 mmol/L (98-107); Creatinine, Serum 1.33 mg/dL (0.55-1.02); EST Glomerular Filtration Rate 40 mL/min (>60); Est Glom Filt Rate - Afr Amer 49 mL/min (>60); Glucose 85 mg/dL (74-106); Potassium 4.2 mmol/L (3.5-5.1); Sodium Level 142 mmol/L (136-145)
== END ==
LOC: OLS.WHLTSB 05:54
PROVIDERS: PCP Internal Medicine; Visit Provider Internal Medicine
DX: E87.6 Hypokalemia (principal)
CPT/HCPCS: 36415; 80048

== ENCOUNTER → 2024-08-18 05:00 | Outpatient (REF) | payer MEDICARE, MEDICAID, SELFPAY ==
[2024-08-18 08:56] LABS: Absolute Neutrophil Count 3.4 X10^3/uL (2.0-7.7); Basophil# 0.05 X10^3/uL; Basophil% 0.8 % (0-1); Eosinophil# 0.38 X10^3/uL; Eosinophils% 6.2 % (0-5); Hematocrit 40.1 % (37-47); Hemoglobin 12.5 g/dL (12.0-15.0); Lymphocyte % 27.7 % (19-41); Mean Corp Hgb Conc 31.2 g/dL (32-36); Mean Corpuscular Hgb 28.2 pg (27.0-32.0); Mean Corpuscular Volume 90.5 fL (81-99); Mean Platelet Vol. 10.4 fl (6.2-12.0); Monocyte# 0.55 X10^3/uL; NRBC Flagged by Analyzer 0 % (0-5); Neutrophil # 3.43 X10^3/uL (2.7-7.7); Platelet Count 153 K/mm3 (150-450); RBC Distribution Width CV 16.1 % (11.6-14.6); RBC Distribution Width SD 52.5 fl (35.1-43.9); Red Blood Count 4.43 M/mm3 (4.2-5.4); White Blood Count 6.1 K/mm3 (4.4-11.0)
[2024-08-18 09:11] LABS: Anion Gap 8 (5-15); BUN 37 mg/dL (7-18); BUN/Creat Ratio 29.6 RATIO (10-20); Calcium,Total 9.1 mg/dL (8.5-10.1); Chloride 110 mmol/L (98-107); Creatinine, Serum 1.25 mg/dL (0.55-1.02); EST Glomerular Filtration Rate 43 mL/min (>60); Est Glom Filt Rate - Afr Amer 53 mL/min (>60); Glucose 86 mg/dL (74-106); Potassium 3.9 mmol/L (3.5-5.1); Sodium Level 142 mmol/L (136-145)
== END ==
LOC: OLS.WHLTSB 05:00
PROVIDERS: PCP Internal Medicine; Visit Provider Internal Medicine
DX: E87.6 Hypokalemia (principal); M15.9 Polyosteoarthritis, unspecified; R07.89 Other chest pain
CPT/HCPCS: 36415; 80048; 85025

== ENCOUNTER → 2024-08-27 05:00 | Outpatient (REF) | payer MEDICARE, MEDICAID, SELFPAY ==
[2024-08-27 07:06] LABS: Anion Gap 7 (5-15); BUN 37 mg/dL (7-18); BUN/Creat Ratio 25.7 RATIO (10-20); Calcium,Total 8.8 mg/dL (8.5-10.1); Chloride 106 mmol/L (98-107); Creatinine, Serum 1.44 mg/dL (0.55-1.02); EST Glomerular Filtration Rate 37 mL/min (>60); Est Glom Filt Rate - Afr Amer 45 mL/min (>60); Glucose 99 mg/dL (74-106); Potassium 4.1 mmol/L (3.5-5.1); Sodium Level 140 mmol/L (136-145)
== END ==
LOC: OLS.WHLTSB 05:00
PROVIDERS: PCP Internal Medicine; Visit Provider Internal Medicine
DX: E87.6 Hypokalemia (principal)
CPT/HCPCS: 36415; 80048

== ENCOUNTER → 2024-09-15 05:00 | Outpatient (REF) | payer MEDICARE, MEDICAID, SELFPAY ==
[2024-09-15 09:14] LABS: Absolute Lymphocyte Count 1.95 X10^3/uL (0.83-4.51); Absolute Neutrophil Count 5.1 X10^3/uL (2.0-7.7); Basophil# 0.07 X10^3/uL; Basophil% 0.8 % (0-1); Eosinophil# 0.42 X10^3/uL; Eosinophils% 5.1 % (0-5); Hematocrit 37.5 % (37-47); Hemoglobin 11.7 g/dL (12.0-15.0); Lymphocyte # 1.95 X10^3/ul (0.83-4.51); Lymphocyte % 23.5 % (19-41); Mean Corp Hgb Conc 31.2 g/dL (32-36); Mean Corpuscular Hgb 28.1 pg (27.0-32.0); Mean Corpuscular Volume 90.1 fL (81-99); Mean Platelet Vol. 10.4 fl (6.2-12.0); Monocyte# 0.72 X10^3/uL; Monocyte% 8.7 % (0-10); NRBC Flagged by Analyzer 0 % (0-5); Neutrophil # 5.09 X10^3/uL (2.7-7.7); Neutrophil % 61.4 % (47-70); Platelet Count 225 K/mm3 (150-450); RBC Distribution Width CV 16.4 % (11.6-14.6); RBC Distribution Width SD 53.6 fl (35.1-43.9); Red Blood Count 4.16 M/mm3 (4.2-5.4); White Blood Count 8.3 K/mm3 (4.4-11.0)
[2024-09-15 09:36] LABS: Anion Gap 9 (5-15); BUN 47 mg/dL (7-18); BUN/Creat Ratio 30.7 RATIO (10-20); Calcium,Total 8.9 mg/dL (8.5-10.1); Chloride 108 mmol/L (98-107); Creatinine, Serum 1.53 mg/dL (0.55-1.02); EST Glomerular Filtration Rate 34 mL/min (>60); Est Glom Filt Rate - Afr Amer 42 mL/min (>60); Glucose 84 mg/dL (74-106); Potassium 4.8 mmol/L (3.5-5.1); Sodium Level 138 mmol/L (136-145)
== END ==
LOC: OLS.WHLTSB 05:00
PROVIDERS: PCP Internal Medicine; Visit Provider Internal Medicine
DX: E87.6 Hypokalemia (principal)
CPT/HCPCS: 36415; 80048; 85025

== ENCOUNTER → 2024-09-24 | Outpatient (REF) | payer MEDICARE, MEDICAID, SELFPAY ==
[2024-09-24 07:11] LABS: Anion Gap 8 (5-15); BUN 39 mg/dL (7-18); BUN/Creat Ratio 26.7 RATIO (10-20); Calcium,Total 8.8 mg/dL (8.5-10.1); Chloride 105 mmol/L (98-107); Creatinine, Serum 1.46 mg/dL (0.55-1.02); EST Glomerular Filtration Rate 36 mL/min (>60); Est Glom Filt Rate - Afr Amer 44 mL/min (>60); Glucose 101 mg/dL (74-106); Sodium Level 138 mmol/L (136-145)
== END ==
LOC: OLS.WHLTSB 05:00
PROVIDERS: PCP Internal Medicine; Visit Provider Internal Medicine
DX: E87.6 Hypokalemia (principal); M15.9 Polyosteoarthritis, unspecified; L03.115 Cellulitis of right lower limb
CPT/HCPCS: 36415; 80048

== ENCOUNTER → 2024-10-08 | Outpatient (REF) | payer MEDICARE, MEDICAID, SELFPAY ==
[2024-10-08 06:51] LABS: Anion Gap 9 (5-15); BUN 44 mg/dL (7-18); BUN/Creat Ratio 30.3 RATIO (10-20); Calcium,Total 9.1 mg/dL (8.5-10.1); Chloride 106 mmol/L (98-107); Creatinine, Serum 1.45 mg/dL (0.55-1.02); EST Glomerular Filtration Rate 37 mL/min (>60); Est Glom Filt Rate - Afr Amer 44 mL/min (>60); Glucose 107 mg/dL (74-106); Sodium Level 139 mmol/L (136-145)
== END ==
LOC: OLS.WHLTSB 05:00
PROVIDERS: PCP Internal Medicine; Visit Provider Internal Medicine
DX: E87.6 Hypokalemia (principal)
CPT/HCPCS: 36415; 80048

== ENCOUNTER → 2024-10-13 05:00 | Outpatient (REF) | payer MEDICARE, MEDICAID, SELFPAY ==
[2024-10-13 09:16] LABS: Absolute Lymphocyte Count 1.93 X10^3/uL (0.83-4.51); Absolute Neutrophil Count 2.8 X10^3/uL (2.0-7.7); Basophil# 0.05 X10^3/uL; Basophil% 0.8 % (0-1); Eosinophils% 11.4 % (0-5); Hematocrit 37.4 % (37-47); Hemoglobin 11.8 g/dL (12.0-15.0); Lymphocyte # 1.93 X10^3/ul (0.83-4.51); Lymphocyte % 31.3 % (19-41); Mean Corp Hgb Conc 31.6 g/dL (32-36); Mean Corpuscular Hgb 28.8 pg (27.0-32.0); Mean Corpuscular Volume 91.2 fL (81-99); Mean Platelet Vol. 10.5 fl (6.2-12.0); Monocyte# 0.63 X10^3/uL; Monocyte% 10.2 % (0-10); NRBC Flagged by Analyzer 0 % (0-5); Neutrophil # 2.84 X10^3/uL (2.7-7.7); Neutrophil % 46.1 % (47-70); Platelet Count 169 K/mm3 (150-450); RBC Distribution Width CV 16.3 % (11.6-14.6); RBC Distribution Width SD 55.2 fl (35.1-43.9); White Blood Count 6.2 K/mm3 (4.4-11.0)
[2024-10-13 09:25] LABS: Anion Gap 10 (5-15); BUN 48 mg/dL (7-18); BUN/Creat Ratio 32.4 RATIO (10-20); Calcium,Total 8.9 mg/dL (8.5-10.1); Chloride 109 mmol/L (98-107); Creatinine, Serum 1.48 mg/dL (0.55-1.02); EST Glomerular Filtration Rate 36 mL/min (>60); Est Glom Filt Rate - Afr Amer 43 mL/min (>60); Glucose 89 mg/dL (74-106); Potassium 4.6 mmol/L (3.5-5.1); Sodium Level 141 mmol/L (136-145)
== END ==
LOC: OLS.WHLTSB 05:00
PROVIDERS: PCP Internal Medicine; Visit Provider Internal Medicine
DX: E87.6 Hypokalemia (principal)
CPT/HCPCS: 36415; 80048; 85025

== ENCOUNTER → 2024-10-20 05:00 | Outpatient (REF) | payer MEDICARE, MEDICAID, SELFPAY ==
[2024-10-20 09:14] LABS: Cholesterol 162 mg/dL (200); High Density Lipoprotein 49 mg/dL; Triglycerides 147 mg/dL; Very Low Density Lipoprotein 29 mg/dL (5-40)
[2024-10-20 09:41] LABS: Vitamin B12 416 pg/mL (211-911)
== END ==
LOC: OLS.WHLTSB 05:00
PROVIDERS: PCP Internal Medicine; Visit Provider Internal Medicine
DX: M15.9 Polyosteoarthritis, unspecified (principal); Z91.81 History of falling; R07.89 Other chest pain; R13.12 Dysphagia, oropharyngeal phase; L24.0 Irritant contact dermatitis due to detergents; R11.0 Nausea; D51.9 Vitamin B12 deficiency anemia, unspecified; E78.00 Pure hypercholesterolemia, unspecified
CPT/HCPCS: 36415; 80061; 82607

== ENCOUNTER → 2024-10-22 05:00 | Outpatient (REF) | payer MEDICARE, MEDICAID, SELFPAY ==
[2024-10-22 06:48] LABS: Anion Gap 10 (5-15); BUN 64 mg/dL (7-18); BUN/Creat Ratio 39.8 RATIO (10-20); Calcium,Total 9.2 mg/dL (8.5-10.1); Chloride 109 mmol/L (98-107); Creatinine, Serum 1.61 mg/dL (0.55-1.02); EST Glomerular Filtration Rate 32 mL/min (>60); Est Glom Filt Rate - Afr Amer 39 mL/min (>60); Glucose 100 mg/dL (74-106); Potassium 4.4 mmol/L (3.5-5.1); Sodium Level 140 mmol/L (136-145)
== END ==
LOC: OLS.WHLTSB 05:00
PROVIDERS: PCP Internal Medicine; Visit Provider Internal Medicine
DX: M15.9 Polyosteoarthritis, unspecified (principal); L03.115 Cellulitis of right lower limb; Z91.81 History of falling; R07.89 Other chest pain; R13.12 Dysphagia, oropharyngeal phase; L24.0 Irritant contact dermatitis due to detergents; E87.6 Hypokalemia
CPT/HCPCS: 36415; 80048

== ENCOUNTER → 2024-11-05 | Outpatient (REF) | payer MEDICARE, MEDICAID, SELFPAY ==
[2024-11-05 09:31] LABS: Anion Gap 17 (5-15); BUN 52 mg/dL (4-19); BUN/Creat Ratio 35.1 RATIO (10-20); Calcium 9.3 mg/dL (7.6-11.0); Carbon Dioxide 20.5 mmol/L (22.0-29.0); Chloride 103 mmol/L (96-108); Creatinine, Serum 1.5 mg/dL (0.6-1.0); EST Glomerular Filtration Rate 35 (>60); Glucose 91 mg/dL (70-99); Potassium 4.7 mmol/L (3.3-5.1); Sodium Level 140 mmol/L (133-145)
== END ==
LOC: OLS.WHLTSB 05:00
PROVIDERS: PCP Internal Medicine; Visit Provider Nurse Practitioner Adult Health
DX: E87.6 Hypokalemia (principal)
CPT/HCPCS: 36415; 80048

== ENCOUNTER → 2024-11-10 | Outpatient (REF) | payer MEDICARE, MEDICAID, SELFPAY ==
[2024-11-10 07:56] LABS: Absolute Lymphocyte Count 1.74 X10^3/uL (0.83-4.51); Absolute Neutrophil Count 3.5 X10^3/uL (2.0-7.7); Basophil# 0.04 X10^3/uL; Basophil% 0.6 % (0-1); Eosinophil# 0.56 X10^3/uL; Eosinophils% 8.6 % (0-5); Hematocrit 38.2 % (37-47); Hemoglobin 12.3 g/dL (12.0-15.0); Lymphocyte # 1.74 X10^3/ul (0.83-4.51); Lymphocyte % 26.8 % (19-41); Mean Corp Hgb Conc 32.2 g/dL (32-36); Mean Corpuscular Hgb 28.9 pg (27.0-32.0); Mean Corpuscular Volume 89.9 fL (81-99); Mean Platelet Vol. 9.7 fl (6.2-12.0); Monocyte# 0.59 X10^3/uL; Monocyte% 9.1 % (0-10); NRBC Flagged by Analyzer 0 % (0-5); Neutrophil # 3.54 X10^3/uL (2.7-7.7); Neutrophil % 54.6 % (47-70); Platelet Count 171 K/mm3 (150-450); RBC Distribution Width CV 15.9 % (11.6-14.6); RBC Distribution Width SD 52.1 fl (35.1-43.9); Red Blood Count 4.25 M/mm3 (4.2-5.4); White Blood Count 6.5 K/mm3 (4.4-11.0)
[2024-11-10 08:29] LABS: Anion Gap 14 (5-15); BUN 46 mg/dL (4-19); BUN/Creat Ratio 32.8 RATIO (10-20); Calcium 9.1 mg/dL (7.6-11.0); Carbon Dioxide 21.7 mmol/L (22.0-29.0); Chloride 106 mmol/L (96-108); EST Glomerular Filtration Rate 37 (>60); Glucose 99 mg/dL (70-99); Potassium 4.5 mmol/L (3.3-5.1); Sodium Level 142 mmol/L (133-145)
== END ==
LOC: OLS.WHLTSB 05:00
PROVIDERS: PCP Internal Medicine; Visit Provider Internal Medicine
DX: E87.6 Hypokalemia (principal); M15.9 Polyosteoarthritis, unspecified; D51.9 Vitamin B12 deficiency anemia, unspecified
CPT/HCPCS: 36415; 80048; 85025

== ENCOUNTER → 2024-11-19 | Outpatient (REF) | payer MEDICARE, MEDICAID, SELFPAY ==
[2024-11-19 08:07] LABS: Anion Gap 15 (5-15); BUN 56 mg/dL (4-19); BUN/Creat Ratio 32.7 RATIO (10-20); Calcium,Total 9.3 mg/dL (7.6-11.0); Carbon Dioxide 20.2 mmol/L (21.0-32.0); Chloride 106 mmol/L (98-108); EST Glomerular Filtration Rate 29 (>60); Glucose 118 mg/dL (70-99); Potassium 4.4 mmol/L (3.3-5.1); Sodium Level 142 mmol/L (133-145)
== END ==
LOC: OLS.WHLTSB 05:00
PROVIDERS: PCP Internal Medicine; Visit Provider Nurse Practitioner Adult Health
DX: E87.6 Hypokalemia (principal)
CPT/HCPCS: 36415; 80048

== ENCOUNTER → 2024-12-03 | Outpatient (REF) | payer MEDICARE, MEDICAID, SELFPAY ==
[2024-12-03 09:12] LABS: Anion Gap 15 (5-15); BUN 51 mg/dL (4-19); BUN/Creat Ratio 30.2 RATIO (10-20); Calcium,Total 8.1 mg/dL (7.6-11.0); Carbon Dioxide 20.8 mmol/L (21.0-32.0); Chloride 104 mmol/L (98-108); EST Glomerular Filtration Rate 29 (>60); Glucose 89 mg/dL (70-99); Sodium Level 141 mmol/L (133-145)
== END ==
LOC: OLS.WHLTSB 05:00
PROVIDERS: PCP Internal Medicine; Visit Provider Nurse Practitioner Adult Health
DX: R07.89 Other chest pain (principal); L03.115 Cellulitis of right lower limb; Z91.81 History of falling; R13.12 Dysphagia, oropharyngeal phase; L24.0 Irritant contact dermatitis due to detergents; E87.6 Hypokalemia; M15.9 Polyosteoarthritis, unspecified
CPT/HCPCS: 36415; 80048

== ENCOUNTER → 2024-12-08 | Outpatient (REF) | payer MEDICARE, MEDICAID, SELFPAY ==
[2024-12-08 09:16] LABS: Absolute Lymphocyte Count 2.02 X10^3/uL (0.83-4.51); Absolute Neutrophil Count 3.5 X10^3/uL (2.0-7.7); Basophil# 0.06 X10^3/uL; Basophil% 0.9 % (0-1); Eosinophil# 0.42 X10^3/uL; Eosinophils% 6.3 % (0-5); Hemoglobin 12.8 g/dL (12.0-15.0); Lymphocyte # 2.02 X10^3/ul (0.83-4.51); Lymphocyte % 30.4 % (19-41); Mean Corp Hgb Conc 32.8 g/dL (32-36); Mean Corpuscular Volume 88.4 fL (81-99); Mean Platelet Vol. 10.2 fl (6.2-12.0); Monocyte# 0.58 X10^3/uL; Monocyte% 8.7 % (0-10); NRBC Flagged by Analyzer 0 % (0-5); Neutrophil # 3.54 X10^3/uL (2.7-7.7); Neutrophil % 53.4 % (47-70); Platelet Count 186 K/mm3 (150-450); RBC Distribution Width CV 15.2 % (11.6-14.6); RBC Distribution Width SD 48.8 fl (35.1-43.9); Red Blood Count 4.41 M/mm3 (4.2-5.4); White Blood Count 6.6 K/mm3 (4.4-11.0)
[2024-12-08 09:51] LABS: Anion Gap 20 (5-15); BUN 53 mg/dL (4-19); BUN/Creat Ratio 34.5 RATIO (10-20); Calcium,Total 9.2 mg/dL (7.6-11.0); Carbon Dioxide 14.3 mmol/L (21.0-32.0); Chloride 105 mmol/L (98-108); Creatinine, Serum 1.54 mg/dL (0.70-1.20); EST Glomerular Filtration Rate 33 (>60); Glucose 79 mg/dL (70-99); Potassium 4.8 mmol/L (3.3-5.1); Sodium Level 139 mmol/L (133-145)
== END ==
LOC: OLS.WHLTSB 05:00
PROVIDERS: PCP Internal Medicine; Visit Provider Internal Medicine
DX: E87.6 Hypokalemia (principal); M15.9 Polyosteoarthritis, unspecified; D51.9 Vitamin B12 deficiency anemia, unspecified
CPT/HCPCS: 36415; 80048; 85025

== ENCOUNTER → 2024-12-17 | Outpatient (REF) | payer MEDICARE, MEDICAID, SELFPAY ==
[2024-12-17 09:53] LABS: Anion Gap 17 (5-15); BUN 51 mg/dL (4-19); BUN/Creat Ratio 30.2 RATIO (10-20); Calcium,Total 9.5 mg/dL (7.6-11.0); Carbon Dioxide 17.9 mmol/L (21.0-32.0); Chloride 101 mmol/L (98-108); Creatinine, Serum 1.69 mg/dL (0.70-1.20); EST Glomerular Filtration Rate 30 (>60); Glucose 89 mg/dL (70-99); Potassium 4.8 mmol/L (3.3-5.1); Sodium Level 136 mmol/L (133-145)
== END ==
LOC: OLS.WHLTSB 05:00
PROVIDERS: PCP Internal Medicine; Visit Provider Nurse Practitioner Adult Health
DX: E87.5 Hyperkalemia (principal); R13.12 Dysphagia, oropharyngeal phase; L03.113 Cellulitis of right upper limb
CPT/HCPCS: 36415; 80048

== ENCOUNTER → 2024-12-31 | Outpatient (REF) | payer MEDICARE, MEDICAID, SELFPAY ==
[2024-12-31 08:47] LABS: Anion Gap 11 (5-15); BUN 57 mg/dL (4-19); BUN/Creat Ratio 36.3 RATIO (10-20); Calcium,Total 8.7 mg/dL (7.6-11.0); Carbon Dioxide 21.7 mmol/L (21.0-32.0); Chloride 107 mmol/L (98-108); Creatinine, Serum 1.58 mg/dL (0.70-1.20); EST Glomerular Filtration Rate 32 (>60); Glucose 112 mg/dL (70-99); Potassium 5.2 mmol/L (3.3-5.1); Sodium Level 140 mmol/L (133-145)
== END ==
LOC: OLS.WHLTSB 05:00
PROVIDERS: PCP Internal Medicine; Visit Provider Internal Medicine
DX: E87.6 Hypokalemia (principal); M15.9 Polyosteoarthritis, unspecified
CPT/HCPCS: 36415; 80048

== ENCOUNTER → 2025-01-02 | Outpatient (REF) | payer MEDICARE, MEDICAID, SELFPAY ==
[2025-01-02 08:55] LABS: Potassium 4.8 mmol/L (3.3-5.1)
== END ==
LOC: OLS.WHLTSB 05:00
PROVIDERS: PCP Internal Medicine; Visit Provider Internal Medicine
DX: E87.6 Hypokalemia (principal)
CPT/HCPCS: 36415; 84132

== ENCOUNTER → 2025-01-05 | Outpatient (REF) | payer MEDICARE, MEDICAID, SELFPAY ==
[2025-01-05 09:17] LABS: Absolute Lymphocyte Count 1.91 X10^3/uL (0.83-4.51); Absolute Neutrophil Count 5.7 X10^3/uL (2.0-7.7); Basophil# 0.04 X10^3/uL; Basophil% 0.5 % (0-1); Eosinophil# 0.31 X10^3/uL; Eosinophils% 3.6 % (0-5); Hematocrit 42.1 % (37-47); Hemoglobin 13.6 g/dL (12.0-15.0); Lymphocyte # 1.91 X10^3/ul (0.83-4.51); Lymphocyte % 22.4 % (19-41); Mean Corp Hgb Conc 32.3 g/dL (32-36); Mean Corpuscular Hgb 28.7 pg (27.0-32.0); Mean Corpuscular Volume 88.8 fL (81-99); NRBC Flagged by Analyzer 0 % (0-5); Neutrophil # 5.65 X10^3/uL (2.7-7.7); Neutrophil % 66.1 % (47-70); Platelet Count 190 K/mm3 (150-450); RBC Distribution Width CV 15.3 % (11.6-14.6); RBC Distribution Width SD 49.3 fl (35.1-43.9); Red Blood Count 4.74 M/mm3 (4.2-5.4); White Blood Count 8.5 K/mm3 (4.4-11.0)
[2025-01-05 09:57] LABS: Anion Gap 15 (5-15); BUN 52 mg/dL (4-19); BUN/Creat Ratio 31.3 RATIO (10-20); Calcium,Total 9.3 mg/dL (7.6-11.0); Carbon Dioxide 21.6 mmol/L (21.0-32.0); Chloride 103 mmol/L (98-108); Creatinine, Serum 1.65 mg/dL (0.70-1.20); EST Glomerular Filtration Rate 30 (>60); Glucose 92 mg/dL (70-99); Potassium 4.9 mmol/L (3.3-5.1); Sodium Level 139 mmol/L (133-145)
== END ==
LOC: OLS.WHLTSB 04:00
PROVIDERS: PCP Internal Medicine; Referring Provider Internal Medicine; Visit Provider Internal Medicine
DX: E87.6 Hypokalemia (principal)
CPT/HCPCS: 36415; 80048; 85025

== ENCOUNTER → 2025-01-14 | Outpatient (REF) | payer MEDICARE, MEDICAID, SELFPAY ==
[2025-01-14 09:28] LABS: Anion Gap 12 (5-15); BUN 63 mg/dL (4-19); BUN/Creat Ratio 38.2 RATIO (10-20); Calcium,Total 8.9 mg/dL (7.6-11.0); Carbon Dioxide 23.5 mmol/L (21.0-32.0); Chloride 104 mmol/L (98-108); Creatinine, Serum 1.65 mg/dL (0.70-1.20); EST Glomerular Filtration Rate 30 (>60); Glucose 109 mg/dL (70-99); Potassium 4.4 mmol/L (3.3-5.1); Sodium Level 139 mmol/L (133-145)
== END ==
LOC: OLS.WHLTSB 05:00
PROVIDERS: PCP Internal Medicine; Visit Provider Internal Medicine
DX: E03.9 Hypothyroidism, unspecified (principal)
CPT/HCPCS: 36415; 80048

== ENCOUNTER → 2025-01-19 | Outpatient (REF) | payer MEDICARE, MEDICAID, SELFPAY ==
[2025-01-19 10:45] LABS: Cholesterol 150 mg/dL (<=200); High Density Lipoprotein 50 mg/dL; Low Density Lipoprotein Calc. 82 mg/dL; Triglycerides 89 mg/dL; Very Low Density Lipoprotein 18 mg/dL (5-40); Vitamin B12 353 pg/mL (180-914)
== END ==
LOC: OLS.WHLTSB 05:00
PROVIDERS: PCP Internal Medicine; Visit Provider Nurse Practitioner Adult Health
DX: E78.00 Pure hypercholesterolemia, unspecified (principal); M15.9 Polyosteoarthritis, unspecified; D51.3 Other dietary vitamin B12 deficiency anemia
CPT/HCPCS: 36415; 80061; 82607

== ENCOUNTER → 2025-01-28 05:00 | Outpatient (REF) | payer MEDICARE, MEDICAID, SELFPAY ==
[2025-01-28 07:44] LABS: Anion Gap 12 (5-15); BUN 52 mg/dL (4-19); Carbon Dioxide 24.8 mmol/L (21.0-32.0); Chloride 105 mmol/L (98-108); Creatinine, Serum 1.34 mg/dL (0.70-1.20); EST Glomerular Filtration Rate 39 (>60); Glucose 99 mg/dL (70-99); Potassium 3.9 mmol/L (3.3-5.1); Sodium Level 142 mmol/L (133-145)
[2025-01-28 07:46] LABS: Calcium,Total 8.7 mg/dL (7.6-11.0)
== END ==
LOC: OLS.WHLTSB 05:00
PROVIDERS: PCP Internal Medicine; Visit Provider Internal Medicine
DX: E87.6 Hypokalemia (principal)
CPT/HCPCS: 36415; 80048

== ENCOUNTER → 2025-02-03 05:00 | Outpatient (REF) | payer MEDICARE, MEDICAID, SELFPAY ==
[2025-02-03 09:05] LABS: Absolute Lymphocyte Count 1.61 X10^3/uL (0.83-4.51); Absolute Neutrophil Count 4.2 X10^3/uL (2.0-7.7); Basophil# 0.05 X10^3/uL; Basophil% 0.7 % (0-1); Eosinophil# 0.35 X10^3/uL; Eosinophils% 5.2 % (0-5); Hematocrit 39.1 % (37-47); Hemoglobin 12.9 g/dL (12.0-15.0); Lymphocyte # 1.61 X10^3/ul (0.83-4.51); Lymphocyte % 23.7 % (19-41); Mean Corpuscular Hgb 29.5 pg (27.0-32.0); Mean Corpuscular Volume 89.3 fL (81-99); Mean Platelet Vol. 9.7 fl (6.2-12.0); Monocyte# 0.56 X10^3/uL; Monocyte% 8.2 % (0-10); NRBC Flagged by Analyzer 0 % (0-5); Neutrophil # 4.18 X10^3/uL (2.7-7.7); Neutrophil % 61.6 % (47-70); Platelet Count 180 K/mm3 (150-450); RBC Distribution Width CV 15.4 % (11.6-14.6); RBC Distribution Width SD 49.9 fl (35.1-43.9); Red Blood Count 4.38 M/mm3 (4.2-5.4); White Blood Count 6.8 K/mm3 (4.4-11.0)
[2025-02-03 09:21] LABS: Anion Gap 14 (5-15); BUN 44 mg/dL (4-19); BUN/Creat Ratio 30.6 RATIO (10-20); Calcium,Total 9.1 mg/dL (7.6-11.0); Carbon Dioxide 22.6 mmol/L (21.0-32.0); Chloride 105 mmol/L (98-108); Creatinine, Serum 1.42 mg/dL (0.70-1.20); EST Glomerular Filtration Rate 36 (>60); Glucose 104 mg/dL (70-99); Potassium 4.5 mmol/L (3.3-5.1); Sodium Level 142 mmol/L (133-145)
== END ==
LOC: OLS.WHLTSB 05:00
PROVIDERS: PCP Internal Medicine; Visit Provider Internal Medicine
DX: I10 Essential (primary) hypertension (principal)
CPT/HCPCS: 36415; 80048; 85025

== ENCOUNTER → 2025-02-11 05:00 | Outpatient (REF) | payer MEDICARE, MEDICAID, SELFPAY ==
[2025-02-11 07:31] LABS: Anion Gap 13 (5-15); BUN 53 mg/dL (4-19); BUN/Creat Ratio 33.5 RATIO (10-20); Calcium,Total 8.9 mg/dL (7.6-11.0); Chloride 103 mmol/L (98-108); Creatinine, Serum 1.57 mg/dL (0.70-1.20); EST Glomerular Filtration Rate 32 (>60); Glucose 117 mg/dL (70-99); Potassium 4.1 mmol/L (3.3-5.1); Sodium Level 140 mmol/L (133-145)
== END ==
LOC: OLS.WHLTSB 05:00
PROVIDERS: PCP Internal Medicine; Visit Provider Internal Medicine
DX: E87.6 Hypokalemia (principal)
CPT/HCPCS: 36415; 80048

== ENCOUNTER → 2025-02-25 04:00 | Outpatient (REF) | payer MEDICARE, MEDICAID, SELFPAY ==
[2025-02-25 08:32] LABS: Anion Gap 14 (5-15); BUN 37 mg/dL (4-19); BUN/Creat Ratio 25.9 RATIO (10-20); Calcium,Total 8.7 mg/dL (7.6-11.0); Carbon Dioxide 24.7 mmol/L (21.0-32.0); Chloride 101 mmol/L (98-108); Creatinine, Serum 1.44 mg/dL (0.70-1.20); EST Glomerular Filtration Rate 36 (>60); Glucose 105 mg/dL (70-99); Potassium 3.9 mmol/L (3.3-5.1); Sodium Level 139 mmol/L (133-145)
== END ==
LOC: OLS.WHLTSB 04:00
PROVIDERS: PCP Internal Medicine; Referring Provider Nurse Practitioner Adult Health; Visit Provider Nurse Practitioner Adult Health
DX: E87.6 Hypokalemia (principal)
CPT/HCPCS: 36415; 80048

== ENCOUNTER → 2025-03-02 05:00 | Outpatient (REF) | payer MEDICARE, MEDICAID, SELFPAY ==
[2025-03-02 08:57] LABS: Absolute Lymphocyte Count 1.17 X10^3/uL (0.83-4.51); Absolute Neutrophil Count 5.9 X10^3/uL (2.0-7.7); Basophil# 0.05 X10^3/uL; Basophil% 0.6 % (0-1); Eosinophil# 0.33 X10^3/uL; Hematocrit 36.9 % (37-47); Hemoglobin 12.3 g/dL (12.0-15.0); Lymphocyte # 1.17 X10^3/ul (0.83-4.51); Lymphocyte % 14.2 % (19-41); Mean Corp Hgb Conc 33.3 g/dL (32-36); Mean Corpuscular Hgb 29.3 pg (27.0-32.0); Mean Corpuscular Volume 87.9 fL (81-99); Mean Platelet Vol. 10.4 fl (6.2-12.0); Monocyte# 0.71 X10^3/uL; Monocyte% 8.6 % (0-10); NRBC Flagged by Analyzer 0 % (0-5); Neutrophil # 5.92 X10^3/uL (2.7-7.7); Platelet Count 191 K/mm3 (150-450); RBC Distribution Width CV 15.1 % (11.6-14.6); RBC Distribution Width SD 49.1 fl (35.1-43.9); White Blood Count 8.2 K/mm3 (4.4-11.0)
[2025-03-02 10:27] LABS: Anion Gap 16 (5-15); BUN 56 mg/dL (4-19); BUN/Creat Ratio 36.4 RATIO (10-20); Calcium,Total 9.1 mg/dL (7.6-11.0); Carbon Dioxide 20.3 mmol/L (21.0-32.0); Chloride 104 mmol/L (98-108); Creatinine, Serum 1.54 mg/dL (0.70-1.20); EST Glomerular Filtration Rate 33 (>60); Glucose 90 mg/dL (70-99); Potassium 4.1 mmol/L (3.3-5.1); Sodium Level 141 mmol/L (133-145)
== END ==
LOC: OLS.WHLTSB 05:00
PROVIDERS: PCP Internal Medicine; Visit Provider Internal Medicine
DX: E87.6 Hypokalemia (principal)
CPT/HCPCS: 36415; 80048; 85025

== ENCOUNTER → 2025-03-09 19:30 | Outpatient (REF) | payer MEDICARE, MEDICAID, SELFPAY ==
[2025-03-10 10:56] LABS: Color, Urine Yellow (Yellow); Glucose, Dipstick Normal (Normal); Ketone-Dipstick Negative (Negative); Leukocyte Esterase-Dipstick 500 /ul (Negative); Nitrite-Dipstick Positive (Negative); Occult Blood-Urine 50 /ul (Negative); Protein-Dipstick 15 mg/dl (Negative); Specific Gravity, Urine 1.005 (1.002-1.030); Urine Bilirubin Dipstick Negative (Negative); Urine Clarity Sl. Cloudy (Clear); Urine Urobilinogen Normal (Normal)
== END ==
LOC: OLS.WHLTSB 19:30
PROVIDERS: PCP Internal Medicine; Visit Provider Internal Medicine
DX: N32.81 Overactive bladder (principal)
CPT/HCPCS: 81002; 87077; 87086; 87088; 87186

== ENCOUNTER → 2025-03-30 | Outpatient (REF) | payer MEDICARE, MEDICAID, SELFPAY ==
[2025-03-30 08:22] LABS: Hematocrit 34.4 % (37-47); Hemoglobin 11.4 g/dL (12.0-15.0); Immature Granulocytes Count 0.030 X10^3/uL (0.0-0.0); Mean Corp Hgb Conc 33.1 g/dL (32-36); Mean Corpuscular Volume 89.4 fL (81-99); Mean Platelet Vol. 10.1 fl (6.2-12.0); NRBC Flagged by Analyzer 0 % (0-5); Platelet Count 162 K/mm3 (150-450); RBC Distribution Width CV 15.9 % (11.6-14.6); RBC Distribution Width SD 52.4 fl (35.1-43.9); Red Blood Count 3.85 M/mm3 (4.2-5.4); White Blood Count 6.6 K/mm3 (4.4-11.0)
[2025-03-30 08:39] LABS: Anion Gap 15 (5-15); BUN 42 mg/dL (4-19); BUN/Creat Ratio 26.5 RATIO (10-20); Calcium,Total 8.3 mg/dL (7.6-11.0); Carbon Dioxide 21.5 mmol/L (21.0-32.0); Chloride 103 mmol/L (98-108); Glucose 96 mg/dL (70-99); Potassium 4.0 mmol/L (3.3-5.1)
== END ==
LOC: OLS.WHLTSB 05:00
PROVIDERS: PCP Internal Medicine; Visit Provider Internal Medicine
DX: E87.6 Hypokalemia (principal)
CPT/HCPCS: 36415; 80048; 85025

== ENCOUNTER → 2025-04-20 | Outpatient (REF) | payer MEDICARE, MEDICAID, SELFPAY ==
[2025-04-20 10:33] LABS: Cholesterol 152 mg/dL (<=200); Low Density Lipoprotein Calc. 82 mg/dL; Triglycerides 114 mg/dL; Very Low Density Lipoprotein 23 mg/dL (5-40); Vitamin B12 389 pg/mL (180-914); cholesterol:hdl ratio screen 3.25
== END ==
LOC: OLS.WHLTSB 05:00
PROVIDERS: PCP Internal Medicine; Visit Provider Internal Medicine
DX: E78.00 Pure hypercholesterolemia, unspecified (principal); D51.9 Vitamin B12 deficiency anemia, unspecified
CPT/HCPCS: 36415; 80061; 82607

== ENCOUNTER → 2025-04-27 05:00 | Outpatient (REF) | payer MEDICARE, MEDICAID, SELFPAY ==
--- OUTSIDE RECORDS SUMMARY | 2025-04-27 03:52 | XMS RPT_ITS | CCD ---
Author Organization [place] [facility] Team Providers Care Company Secretary Name Role Phone Jason Willett Attending Unavailable Reema Cantu Primary Care Unavailable Vinod Fulton MD Unavailable Unavailab Eliseo Cordon MD Unavailable Unavailable Reema Cantu DO Unavailable Unavailable Reema Cantu Unavailable Unavailable Jason Willett MD Unavailable Unavailable Clint Ye MD Unavailable Unavailable Dr. Aman Ragsdale Primary Care Provider Andrew FURNITURE DIPPER, FURNITURE DIPPER-C Regine Attending Provider Unav lisaable Delisa Estrella DO Primary Care Provider Dr. Aman Ragsdael Primary Care Provider Andrew FURNITURE DIPPER, FURNITURE DIPPER-C Regine Attending Provider Unav lisaable Dr. Rodrigue Saldaña Attending Provider Rodrigue Saldaña Primary Care Provider Rodrigue Saldaña Primary Care Provider Unavaila ble Rodrigue Saldaña Primary Care Provider Unavaila ble DELORES, DELISA T Attending Unavailable VINOD ROJAS E Referring Unavailable TALIASTEINVINOD E Attending Unavailable VINOD ROJAS E Attending Unavailable TALIASTEINVINOD E Referring Unavailable DELORES, DELISA T Primary Care Unavailable VINOD ROJAS E Attending Unavailable DELORES, DELISA T Primary Care Unavailable VINOD ROJAS E Admitting Unavailable TALIASTEINVINOD E Attending Unavailable DELORES, DELISA T Primary Care Unavailable VINOD ROJAS E Admitting Unavailable TALIASTEINVINOD E Attending Unavailable DELORES, DELISA T Primary Care Unavailable KY SHAW Attending Unavailable DUC PAYAN Attending Unavailable Dr. Rodrigue Saldaña MD Primary Care Provider Piper FOUNTAIN, Rodrigue Attending Provider Unavaila zeeshan Morales FURNITURE DIPPER-CRegine Attending Provider [phone] Piper FOUNTAIN, Dr. Husain Primary Care Provider Rodrigue Saldaña MD Attending Provider Unavailannabel Saldaña MD, Dr. Husain Referring Provider [phone] Arjun Felton MD Attending Provider [phone] Mario FOUNTAIN, Dr. Jacobs Attending Provider Piper FOUNTAIN, Dr. Husain Primary Care Provider Piper FOUNTAIN, Rodrigue Attending Provider Unavailannabel Saldaña MD, Rodrigue Referring Provider Unavaila Elvi Siddiqui Attending Provider Andrew FURNITURE DIPPER-C, Regine Attending Provider Piper FOUNTAIN, Dr. Husain Primary Care Provider Rodrigue Saldaña MD Attending Provider Unavailannabel Saldaña MD, Dr. Husain Primary Care Provider Piper FOUNTAIN, Rodrigue Attending Provider Unavailannabel Saldaña MD, Dr. Husain Primary Care Provider Rodrigue Saldaña MD Attending Provider Unavailannabel Saldaña MD, Dr. Husain Primary Care Provider Andrew FURNITURE DIPPER-C, Regine Attending Provider [phone] Rodrigue Saldaña MD Attending Provider Unavaila ble Andrew FURNITURE DIPPER-CRegine Referring Provider [phone] Nikki FOUNTAIN, Dr. Chirinos Attending Provider Rodrigue Samson Attending UnavailAman Marsh Primary Care Unavailable Rodrigue Samson Attending UnavailRodrigue Alcantar Primary Care Unavailable Rodrigue Samson Attending Unavailabl e Oleghe OLS, Efewongbe Referring Unavailabl e Oleghe, Efewongbe Primary Care Unavailable Oleghe, Efewongbe Primary Care Unavailable Oleghe OLS, Efewongbe Attending Unavailabl e Oleghe, Efewongbe Primary Care Unavailable Oleghe OLS, Efewongbe Attending Unavailabl e Oleghe, Efewongbe Primary Care Unavailable Oleghe OLS, Efewongbe Attending Unavailabl e Tickton VENUS Regine Attending Unavailable Oleghe, Efewongbe Primary Care Unavailable Tickton OLS Regine Attending Unavailable Oleghe, Efewongbe Primary Care Unavailable Oleghe, Efewongbe Primary Care Unavailable Oleghe OLS, Efewongbe Attending Unavailabl e Tickton OLS Regine Attending Unavailable Oleghe, Efewongbe Primary Care Unavailable Oleghe OLS, Efewongbe Attending Unavailabl e Ragsdale, Aman K Primary Care Unavailable Oleghe OLS, Efewongbe Attending Unavailabl e Ragsdale, Aman K Primary Care Unavailable Oleghe, Efewongbe Primary Care Unavailable Bam, Osvaldo Attending Unavailable Bam, Osvaldo Referring Unavailable Oleghe OLS, Efewongbe Attending Unavailabl e Oleghe, Efewongbe Primary Care Unavailable Oleghe, Efewongbe Primary Care Unavailable Tickton Regine DONOVAN Attending Unavailable Oleghe, Efewongbe Primary Care Unavailable Oleghe, Efewongbe Referring Unavailable Oleghe, Efewongbe Attending Unavailable Oleghe, Efewongbe Primary Care Unavailable Regine Melgar Attending Unavailable Tickton VENUS Regine Referring Unavailable Oleghe OLS, Efewongbe Attending Unavailabl e Ragsdale, Aman K Primary Care Unavailable Oleghe, Efewongbe Primary Care Unavailable Oleghe, Efewongbe Attending Unavailable Oleghe, Efewongbe Primary Care Unavailable Nikkie Robertson NP Attending Unavailable Oleghe, Efewongbe Primary Care Unavailable Bam, Osvaldo Attending Unavailable Bam, Osvaldo Referring Unavailable Oleghe, Efewongbe Primary Care Unavailable Bam, Osvaldo Attending Unavailable Bam, Osvaldo Consulting Unavailable Bam, Osvaldo Referring Unavailable Oleghe, Efewongbe Primary Care Unavailable Regine Morales NP Attending Unavailable Oleghe, Efewongbe Primary Care Unavailable Oleghe, Efewongbe Referring Unavailable Bam, Osvaldo Attending Unavailable Oleghe, Efewongbe Primary Care Unavailable Tickton FURNITURE DIPPER, Regine Attending Unavailable Arjun Felton Attending Unavailable Oleghe, Efewongbe Primary Care Unavailable Oleghe, Efewongbe Referring Unavailable Oleghe, Efewongbe Primary Care Unavailable Reynaldo Martin Attending Unavailable Oleghe, Efewongbe Primary Care Unavailable Elvi Perez Attending Unavailable Oleghe, Efewongbe Referring Unavailable Oleghe, Efewongbe Primary Care Unavailable Tickton FURNITURE DIPPER, Regine Attending Unavailable Oleghe, Efewongbe Primary Care Unavailable Tickton FURNITURE DIPPER, Regine Attending Unavailable Oleghe OLS, Efewongbe Referring Unavailabl e Oleghe, Efewongbe Primary Care Unavailable Oleghe OLS, Efewongbe Attending Unavailabl e Oleghe OLS, Efewongbe Attending Unavailabl e Oleghe, Efewongbe Primary Care Unavailable Oleghe OLS, Efewongbe Referring Unavailabl e Oleghe, Efewongbe Primary Care Unavailable Oleghe OLS, Efewongbe Attending Unavailabl e Oleghe, Efewongbe Primary Care Unavailable Miguel Wooten Attending Unavailable Oleghe, Efewongbe Referring Unavailable Oleghe OLS, Efewongbe Attending Unavailabl e Aman Ragsdale Primary Care Unavailable Oleghe, Efewongbe Primary Care Unavailable Oleghe OLS, Efewongbe Attending Unavailabl e Oleghe, Efewongbe Primary Care Unavailable Oleghe OLS, Efewongbe Attending Unavailabl e Oleghe OLS, Efewongbe Attending Unavailabl e Oleghe, Efewongbe Primary Care Unavailable Oleghe OLS, Efewongbe Attending Unavailabl e Oleghe, Efewongbe Primary Care Unavailable Oleghe, Efewongbe Primary Care Unavailable Oleghe OLS, Efewongbe Attending Unavailabl e Oleghe, Efewongbe Primary Care Unavailable Oleghe OLS, Efewongbe Attending Unavailabl e Oleghe, Efewongbe Primary Care Unavailable Oleghe OLS, Efewongbe Attending Unavailabl e Oleghe, Efewongbe Primary Care Unavailable Oleghe OLS, Efewongbe Attending Unavailabl e Oleghe, Efewongbe Primary Care Unavailable Oleghe OLS, Efewongbe Attending Unavailabl e Oleghe, Efewongbe Primary Care Unavailable Oleghe OLS, Efewongbe Attending Unavailabl e Tickton OLS, Regine Attending Unavailable Oleghe, Efewongbe Primary Care Unavailable Oleghe OLS, Efewongbe Attending UnavailAman Marsh Primary Care Unavailable Oleghe OLS, Efewongbe Attending Unavailabl e Oleghe, Efewongbe Primary Care Unavailable Oleghe OLS, Efewongbe Attending Unavailabl e Oleghe, Efewongbe Primary Care Unavailable Oleghe OLS, Efewongbe Attending Unavailabl e Oleghe, Efewongbe Primary Care Unavailable Oleghe, Efewongbe Primary Care Unavailable Oleghe OLS, Efewongbe Attending Unavailabl e Oleghe OLS, Efewongbe Attending UnavailAman Marsh Primary Care Unavailable Aman Ragsdale Primary Care Unavailable Oleghe OLS, Efewongbe Attending UnavailAman Marsh Primary Care Unavailable Andrew FURNITURE DIPPER, Regine Attending Unavailable Oleghe, Efewongbe Primary Care Unavailable Oleghe, Efewongbe Attending Unavailable Oleghe, Efewongbe Referring Unavailable Oleghe OLS, Efewongbe Attending Unavailabl e Oleghe, Efewongbe Primary Care Unavailable Allergies Allergy Classification Reported Allergen(s) Allergy Type Date of Onset Reaction(s) Facility HMG-CoA Reductase Inhibitors (statins) (1 source) Hmg-Coa Reductase Inhibitors (Statins) Drug Allergy [facility] Work Phone: Lincosamides (antibiotic) (1 source) Clindamycin Drug Allergy [facility] Work Phone: Penicillins (antibiotic) (1 source) Penicillins; Translations: [Penicillins] Drug Allergy [facility] Work Phone: Sulfonamides (antibiotic) (1 source) Sulfonamides (Antibiotic) Drug Allergy [facility] Work Phone: (10 sources) Acetaminophen / oxyCODONE; Translations: [OXYCODONE-ACETAM INOPHEN] Drug Allergy 01-17-20 16 Intolerance [facility] (20 sources) Clindamycin; Translations: [CLINDAMYCIN] Drug Allergy 01-17-20 12 Rash, Itching [facility] (10 sources) HMG-CoA reductase inhibitor; Translations: [[id number] REDUCTASE INHIBITORS] Drug Intolerance 01-23-20 Other: See Comments [facility] (20 sources) Morphine; Translations: [MORPHINE] Drug Allergy 06-11-20 GI Upset, Vomiting [facility] Work Phone: (10 sources) Penicillins; Translations: [PENICILLINS] Drug Allergy 02-22-20 04 Rash [facility] (10 sources) Sulfonamides (Antibiotic); Translations: [SULFA (SULFONAMIDE ANTIBIOTICS)] Drug Intolerance 02-22-20 Other: See Comments [facility] (11 sources) oxyCODONE Drug Allergy 07-21-20 Intolerance [facility] (11 sources) Penicillins Allergy to substance 07-21-20 Rash [facility] (11 sources) Sulfonamides (Antibiotic) Propensity to adverse reactions 07-21-20 thrush [facility] (11 sources) Zbuexct-Tqt-Npn Reductase Inhibitor Allergy to substance 07-21-20 See Note [facility] Comment on above: Lethargy, muscle/afua nt pain (1 source) Clindamycin Drug Allergy 12-23-19 [facility] (1 source) Morphine Drug Allergy 12-23-19 25 [facility] (1 source) oxyCODONE Drug Allergy 12-23-19 25 [facility] (1 source) Penicillins Drug allergy (disorder) 12-23-19 25 [facility] (1 source) Sulfonamides (Antibiotic) Drug allergy (disorder) 12-23-19 25 [facility] (1 source) Tdmtaah-Feh-Fex Reductase Inhibitor Drug allergy (disorder) 12-23-19 25 [facility] Medications Current Medications Medication Drug Class(es) Dates Sig (Normalized) Sig (Original) acetaminophen 500 mg oral capsule (19 sources) Start: 07-15-2024 take 1 capsule by mouth three times daily Acetaminophen 500 mg capsule Active 500 mg PO THREE TIMES A DAY July 15, 2024 1:00am Start: 05-15-2021 take 2 tablets by mo [facility] every eight hours as needed acetaminophen (TYLENOL) 325 mg tablet Take 2 tablets by mouth every 8 hours as needed for pain. 30 tablet 05/15/2021 Active Comment on above: Take 2 tablets by mo [facility] every 8 hours as needed for pain. aspirin 81 mg delayed release oral tablet (14 sources) Platelet Aggregation Inhibitor, Nonsteroidal Anti-inflammatory Drug Start: 017 take 1 tablet by mouth once daily Aspirin 81 mg tablet,delayed release (DR/EC) Active 81 mg PO daily July 15, 2024 1:00am cholecalciferol 0.025 mg oral capsule (20 sources) Vitamin D Start: 024 take 1 capsule by mouth once daily Cholecalciferol (Vitamin D3) 25 mcg (1,000 unit) capsule Active 25 ug PO daily July 15, 2024 1:00am Cholecalciferol, Vitamin D3, (VITAMIN D) 1,000 unit Tab Take 2,000 Units by mouth once daily. Active Comment on above: Take 2,000 Units by mouth once daily. ciprofloxacin 250 mg oral tablet (1 source) Quinolone Antimicrobial Start: 03-11-20 25 take 1 tablet by mouth twice daily Ciprofloxacin Hcl 250 mg tablet Active 250 mg PO TWICE A DAY March 11, 2025 12:00am docusate sodium 100 mg oral capsule (20 sources) Start: 03-25-20 18 take 1 capsule by mouth twice daily Docusate Sodium (Colace) 100 mg capsule Active 100 mg PO TWICE A DAY July 15, 2024 1:00am Start: 09-21-2016 take 1 capsule by mo [facility] once daily as needed Stool Softener 100 MG Oral Capsule TAKE 1 CAPSULE Daily prn Refills: 0 Start : 21-Sep-2016 Active Comment on above: Take 1 capsule by mo [facility] twice daily. docusate sodium 50 mg / sennosides, snf 8.6 mg oral capsule (11 sources) Start: 07-15-2024 Sennosides-Docusate Sodium (Senna Plus) 8.6-50 mg capsule Active 1 NMA PO TWICE A DAY as needed July 15, 2024 1:00am fenofibrate 67 mg oral capsule (15 sources) Peroxisome Proliferator Receptor alpha Agonist Start: 07-15-2024 Fenofibrate Micronized 67 mg capsule Active 134 mg PO EVERY EVENING July 15, 2024 1:00am take 1 capsule by mo ut once daily at bedtime Fenofibrate 150 mg cap Take 150 mg by mo ut daily at bedtime. Active furosemide 40 mg oral tablet (20 sources) Loop Diuretic Start: 07-21-2024 take 1 tablet by mouth once daily Furosemide (Lasix) 40 mg tablet Active 40 mg PO daily 90 July 21, 2024 1:00am Start: 07-15-2024 End: 07-21-2024 take 1 tablet by mouth once daily in the morning Furosemide 20 mg tablet Discontinued 20 mg PO EVERY MORNING July 15, 2024 1:00am July 21, 2024 1:36pm Start: 03-18-2024 End: 04-24-2024 furosemide (LASIX) 20 mg tab let hydroCHLOROthiazide 50 mg oral tablet (14 sources) Thiazide Diuretic Start: 02-27-2024 hydroCHLOROthiazide 50 mg tablet 02/27/2024 Active Start: 11-26-2022 End: 04-24-2024 hydroCHLOROthiazide 25 mg ta blet End: 04-24-2024 take 2 tablets by mouth once daily hydroCHLOROthiazide 25 mg tablet Take 50 mg by mouth once daily. 0 04/24/2024 Discontinued Comment on above: Take 25 mg by mouth once daily. Magnesium Hydroxide (15 sources) Start: 07-15-2024 take 1 mL by mouth once daily as needed Magnesium Hydroxide (Milk Of Magnesia) 400 mg/5 mL suspension Active 30 mL PO daily as needed July 15, 2024 1:00am magnesium hydrox melissa (MILK OF MAGNESIA ORAL) Take by mouth. Active magnesium hydrox melissa (MILK OF MAGNESIA ORAL) Take by mouth. 0 Active metoprolol tartrate 25 mg oral tablet (20 sources) beta-Adrenergic Ayaka Start: 07-21-2024 take 1 tablet by mouth twice daily Metoprolol Tartrate 25 mg tablet Active 25 mg PO TWICE A DAY 180 July 21, 2024 1:00am Start: 01-27-2024 take 1 tablet by [facility] once daily metoprolol succinate ER (TOPROL XL) 25 mg 24 hr tablet Take 12.5 mg by mouth once daily. 01/27/2024 Active Start: 11-13-2017 take 1 tablet by [facility] once daily metoprolol succinate ER (TOPROL XL) 50 mg 24 hr tablet Indications: Essential hypertension Take 1 tablet by mouth once daily. 90 tablet 2 07/22/2020 Active Comment on above: Take 1 tablet by [facility] once daily. nitroglycerin 0.4 mg sublingual tablet (13 sources) Nitrate Vasodilator Start: 07-15-2024 Nitroglycerin 0.4 mg tablet, sublingual Active 0.4 mg SL Q5M as needed July 15, 2024 1:00am do not exceed 3 doses per episode Start: 03-18-2024 nitroglycerin sublingual (NITROQUICK) 0.4 mg SL tablet 03/18/2024 Active pantoprazole 40 mg delayed release oral tablet (20 sources) Proton Pump Inhibitor Start: 07-15-2024 take 1 tablet by mouth at bedtime Pantoprazole 40 mg tablet,delayed release (DR/EC) Active 40 mg PO AT BEDTIME July 15, 2024 1:00am Start: 03-01-2016 End: 04-11-2021 take 1 tablet by mouth once daily pantoprazole DR (PROTONIX) 40 mg tablet Indications: GERD without esophagitis TAKE ONE TABLET BY MOUTH ONCE A DAY 30 tablet 2 04/11/2021 Active Comment on above: Take 1 by mouth 30-6 0 minutes before breakfast daily TAKE ONE TABLET BY M OUTH ONCE A DAY phenylephrine hydrochloride 25 mg/ml ophthalmic solution (1 source) alpha-1 Adrenergic Agonist Start: 08-19-20 End: 08-20-20 PHENYLephrine 2.5 % 1 Drop (AK-DILATE, TAMARA-SYNEPHRINE) polyethylene glycol 400 4 mg/ml / propylene glycol 3 mg/ml ophthalmic solution (11 sources) Start: 07-15-20 Peg 400-Propylene Glycol (Systane (Propylene Glycol)) 0.4-0.3 % drops Active 1 NMA OPHTHALMIC daily as needed July 15, 2024 1:00am one drop in both eyes once daily PRN potassium chloride 20 meq extended release oral tablet (20 sources) Start: 07-15-20 take 2 tablets by mouth once daily Potassium Chloride 20 mEq tablet extended release Active 40 meq PO daily July 15, 2024 1:00am Start: 07-15-2024 take 1 tablet by [facility] once daily in the evening Potassium Chloride 20 mEq tablet,ER particles/crystals Active 20 meq PO EVERY EVENING July 15, 2024 1:00am Start: 01-01-2013 End: 04-24-2024 take 1 tablet by mouth twice daily potassium chloride (KLOR-CON 10) 10 mEq tablet Indications: Essential hypertension Take 1 tablet by mouth twice daily. 180 tablet 2 07/22/2020 04/24/2024 Discontinued take 2 tablets by mo [facility] once daily potassium chloride ER (KLOR-CON) 20 mEq tablet Take 40 mEq by mouth once daily. Active Comment on above: Take 1 tablet by [facility] twice daily. prednisoLONE acetate 10 mg/ml ophthalmic suspension (3 sources) Corticosteroid Start: 11-18-19 End: 12-21-19 prednisoLONE acetate (PRED FORTE) 1 % ophthalmic suspension Use 1 Drop in the left eye four times daily for 21 days. Start after cataract surgery 5 mL 1 11/30/2023 12/21/2023 Active Comment on above: Use 1 Drop in the ri ght eye four times daily for 21 days. Start after cataract surgery Use 1 Drop in the le ft eye four times daily for 21 days. Start after cataract surgery pregabalin 100 mg oral capsule (20 sources) Start: 11-20-19 End: 03-16-20 take 1 capsule by mouth three times daily Pregabalin 100 mg capsule Active 100 mg PO THREE TIMES A DAY 90 0 March 16, 2025 1:11pm Comment on above: Take 100 mg by mouth three times a day. proparacaine hydrochloride 5 mg/ml ophthalmic solution (1 source) Local Anesthetic Start: 08-19-20 End: 08-20-20 proparacaine 0.5 % 1 Drop (ALCAINE) propylene glycol/peg 400/PF (SYSTANE, PF, OPHTHALMIC) (4 sources) propylene glycol/peg 400/PF (SYSTANE, PF, OPHTHALMIC) Use in eyes. Active propylene glycol /peg 400/PF (SYSTANE, PF, OPHTHALMIC) Use in eyes. 0 Active sennosides (SENNA ORAL) (4 sources) sennosides (JILL A ORAL) Take by mouth. Active sennosides (JILL A ORAL) Take by mouth. 0 Active sertraline 50 mg oral tablet (20 sources) Serotonin Reuptake Inhibitor Start: 07-15-2024 Sertraline 50 mg tablet Active 125 mg PO AT BEDTIME July 15, 2024 1:00am Start: 02-27-2024 sertraline (ZO LOFT) 50 mg tablet 02/27/2024 Active Start: 01-10-2017 End: 04-24-2024 take 1 tablet by mouth once daily sertraline (ZOLOFT) 100 mg tablet Indications: Anxiety and depression Take 1 tablet by mouth once daily. 90 tablet 2 07/22/2020 04/24/2024 Discontinued (Discontinued by Patient) Comment on above: Take 1 tablet by [facility] once daily. triamcinolone acetonide 1 mg/ml topical cream (20 sources) Corticosteroid Start: 07-15-2024 Triamcinolone Acetonide 0.1 % cream Active 1 NMA TOPICAL TWICE A DAY as needed July 15, 2024 1:00am apply topically to bilateral buttocks twice daily as needed for rash/itch Start: 03-03-2024 End: 04-24-2024 triamcinolone acetonide (DENZEL ALOG) 0.1 % cream Apply to affected area. 0 03/03/2024 04/24/2024 Discontinued (Discontinued by Patient) tropicamide 10 mg/ml ophthalmic solution (1 source) Anticholinergic Start: 08-19-2024 End: 08-20-2024 tropicamide 1 % 1 Drop (MYDRIACYL) Vibegron (11 sources) Start: 07-15-2024 take 1 tablet by mouth once daily Vibegron (Gemtesa) 75 mg tablet Active 75 mg PO daily July 15, 2024 1:00am vibegron (GEMTESA) 75 mg tablet (7 sources) Start: 11-26-2022 take 1 tablet by mouth once daily vibegron (GEMTESA) 75 mg tablet Take 1 tablet by mouth once daily. 11/26/2022 Active Start: 11-26-2022 take 1 tablet by [facility] once daily vibegron (GEMTESA) 75 mg tablet Take 1 tablet by mouth once daily. 0 11/26/2022 Active Comment on above: Take 1 tablet by [facility] once daily. Vit A,C And P-Qsjfmz-Pcdnsdxf (I-Lary) 300 mcg-200 mg-27 mg-2 mg tablet (11 sources) Start: 07-15-2024 Vit A,C And Q-Kgjche-Qrxyrgqf (I-Lary) 300 mcg-200 mg-27 mg-2 mg tablet Active 1 {tbl} PO daily July 15, 2024 1:00am administer after a meal vit C,U-Pv-wmudh-lutein-ze axan (PRESERVISION AREDS-2) 250-90-40-1 mg (7 sources) vit C,N-Yc-malmo-lutein-zeaxa n (PRESERVISION AREDS-2) 250-90-40-1 mg Take by mouth. Active vit C,E-Zn-coppr -lutein-zeaxan (PRESERVISION AREDS-2) 250-90-40-1 mg Take by mouth. 0 Active Comment on above: Take by mouth. Completed/Discontinued Medications Medication Drug Class(es) Dates Sig (Normalized) Sig (Original) aspirin 500 mg / caffeine 32.5 mg oral tablet (8 sources) Platelet Aggregation Inhibitor, Nonsteroidal Anti-inflammatory Drug, Central Nervous System Stimulant, Methylxanthine End: 04-24-20 aspirin-caffeine (BACK AND BODY PAIN RELIEVER) 500-32.5 mg tab Take by mouth every 6 hours as needed. 0 04/24/2024 Discontinued (Discontinued by Patient) Comment on above: Take by mouth every 6 hours as needed. ezetimibe 10 mg oral tablet (9 sources) Dietary Cholesterol Absorption Inhibitor Start: 09-30-19 End: 04-24-20 take 1 tablet by mouth once daily ezetimibe (ZETIA) 10 mg tablet Indications: Hypercholesterolemia Take 1 tablet by mouth once daily. 90 tablet 2 07/22/2020 04/24/2024 Discontinued (Discontinued by Patient) Comment on above: Take 1 tablet by [facility] once daily. Fish Oil 1200 MG Oral Capsule (1 source) Fish Oil 1200 MG Oral Capsule TAKE DIRECTED. Refills: 0 Active fluticasone propionate 0.5 mg/ml topical cream (8 sources) Corticosteroid Start: 03-01-20 End: 04-24-20 Fluticasone Propionate (CUTIVATE) 0.05 % cream Apply to affected area as needed. Apply as directed to affected area twice daily 30 g 1 03/01/2021 04/24/2024 Discontinued (Discontinued by Patient) Comment on above: Apply to affected ar ea as needed. Apply as directed to affected area twice daily gabapentin 300 mg oral capsule (1 source) Anti-epileptic Agent Start: 03-01-20 End: 05-17-20 take 1 capsule by mouth every 30 days at bedtime as needed gabapentin (NEURONTIN) 300 mg capsule Indications: Lumbosacral spondylosis without myelopathy Take 1 capsule by mouth at bedtime as needed for up to 30 days. 30 capsule 5 03/01/2021 05/17/2021 Discontinued Comment on above: Take 1 capsule by mo [facility] at bedtime as needed for up to 30 days. hydroCHLOROthiazide 25 mg / lisinopril 20 mg oral tablet (2 sources) Thiazide Diuretic, Angiotensin Converting Enzyme Inhibitor Start: 03-07-20 16 End: 05-17-20 21 take 1 tablet by mouth once daily lisinopril-hydrochlorot hiazide (PRINZIDE, ZESTORETIC) 20-25 mg per tablet Indications: Essential hypertension Take 1 tablet by mouth once daily. 90 tablet 2 07/22/2020 05/17/2021 Discontinued Comment on above: [facility] hydrOXYzine hydrochloride 10 mg oral tablet (8 sources) Antihistamine Start: 03-01-20 21 End: 04-24-20 24 take 1 tablet by mouth three times daily as needed for anxiety hydrOXYzine HCl (ATARAX) 10 mg tablet Indications: Anxiety and depression Take 1 tablet by mouth three times daily as needed for anxiety. 20 tablet 0 03/01/2021 04/24/2024 Discontinued (Discontinued by Patient) Comment on above: Take 1 tablet by [facility] three times daily as needed for anxiety. lisinopril 20 mg oral tablet (1 source) Angiotensin Converting Enzyme Inhibitor Start: 08-20-20 17 take 1 tablet by mouth once daily Lisinopril 20 MG Oral Tablet TAKE 1 TABLET DAILY. Quantity: 30 Refills: 2 Reema Cantu DO Start : 20-Aug-2017 Active LORazepam 0.5 mg oral tablet (1 source) Benzodiazepine Start: 12-23-19 14 take 1 tablet by mouth once daily as needed LORazepam 0.5 MG Oral Tablet TAKE 1 TABLET DAILY NEEDED. Quantity: 30 Refills: 2 Reema Cantu DO Start : 22-Dec-2013 Active Lutein (8 sources) End: 04-24-20 24 LUTEIN ORAL Take by mouth. 0 04/24/2024 Discontinued (Discontinued by Patient) LUTEIN ORAL Take by mouth. 0 Active Comment on above: Take by mouth. naproxen sodium 220 mg oral tablet (1 source) Nonsteroidal Anti-inflammatory Drug Start: 7 take 1 tablet by mouth twice daily Aleve 220 MG Oral Tablet Take 1 tablet twice daily Refills: 0 Start : 21-Sep-2016 Active nystatin 100 unt/mg topical powder (7 sources) Polyene Antifungal Start: 1 End: 4 nystatin (MYCOSTATIN) powder Apply 1 application to affected area twice daily. 0 05/30/2021 04/24/2024 Discontinued (Discontinued by Patient) Comment on above: Apply 1 application to affected area twice daily. [place]-3 Fatty Acids-Vitamin E (FISH OIL) 1,000 mg cap (8 sources) End: 4 take 1 capsule by mouth once daily [place]-3 Fatty Acids-Vitamin E (FISH OIL) 1,000 mg cap Take 1 capsule by mouth once daily. 0 04/24/2024 Discontinued (Discontinued by Patient) take 1 capsule by mouth once [place]-3 Fatty Acids-Vitamin E (FISH OIL) 1,000 mg cap Take 1 capsule by mouth once daily. 0 Active Comment on above: Take 1 capsule by mo [facility] once daily. PreserVision AREDS 2 Oral Capsule (1 source) PreserVision ARE DS 2 Oral Capsule TAKE DIRECTED. Refills: 0 Active traMADol hydrochloride 50 mg oral tablet (1 source) Opioid Agonist Start: 5 End: 5 take 1 tablet by mouth every six hours as needed for pain Tramadol 50 mg tablet Discontinued 50 mg PO EVERY 6 HOURS as needed for pain 60 30 0 February 24, 2025 12:00am March 25, 2025 12:00am March 26, 2025 12:07am VIT C/E/ZN/COPPR/LUTEIN/AYESHA ZACK (PRESERVISION AREDS 2 ORAL) (1 source) End: 1 VIT C/E/ZN/COPPR/LUTEIN/Z EAXAN (PRESERVISION AREDS 2 ORAL) Take 1 tablet by mouth twice daily. 0 05/15/2021 Discontinued Comment on above: Take 1 tablet by the [facility] twice daily. Problems Active Problems Problem Classification Problem Date Documented Da te Episodic/Chronic Abdominal pain (1 source) Finding of sensation of abdomen; Translations: [Abdominal pain, unspecified site] Episodic Administrative/social admission (11 sources) Need for personal care assistance; Translations: [Need for assistance with personal care] 07-15-2024 Episodic Allergic reactions (2 sources) Irritant contact dermatitis due to detergents; Translations: [Irritant contact dermatitis due to detergents] Onset: 5 Episodic Anxiety disorders (2 sources) Anxiety; Translations: [Anxiety state, unspecified] 03-16-2024 Chronic Anxiety disorders (11 sources) Organic anxiety disorder; 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] 07-15-2024 Episodic Biliary tract disease (1 source) Gallbladder pain; Translations: [Calculus of gallbladder without mention of cholecystitis, without mention of obstruction] Episodic Cataract (13 sources) Nuclear senile cataract; Translations: [Age-related nuclear cataract, unspecified eye] Onset: 3 11-15-2012 Chronic Coronary atherosclerosis and other heart disease (15 sources) Coronary arteriosclerosis; Translations: [Atherosclerotic heart disease of [place] coronary artery without angina pectoris] Onset: 2 Resolved: 1 02-17-2021 Chronic Disorders of lipid metabolism (20 sources) Hyperlipidemia; Translations: [Other and unspecified hyperlipidemia] Onset: 2 Resolved: 1 01-17-2012 Chronic Diverticulosis and diverticulitis (19 sources) Diverticulitis; Translations: [Diverticulitis of intestine, part unspecified, without perforation or abscess without bleeding] Onset: 1 05-12-2021 Chronic Esophageal disorders (20 sources) Gastroesophageal reflux disease; Translations: [Esophageal reflux] Onset: 5 01-17-2012 Chronic Essential hypertension (20 sources) Hypertensive disorder; Translations: [Unspecified essential hypertension] Onset: 2 Resolved: 1 01-17-2012 Chronic Fluid and electrolyte disorders (3 sources) Hypokalemia; Translations: [Hyperkalemia] Onset: 5 Episodic Genitourinary symptoms and ill-defined conditions (20 sources) Urinary incontinence; Translations: [Urinary incontinence, unspecified] Onset: 1 02-17-2021 Chronic Genitourinary symptoms and ill-defined conditions (1 source) Polyuria; Translations: [Polyuria] Episodic Gout and other crystal arthropathies (20 sources) Gout; Translations: [Gout, unspecified] Onset: 5 Resolved: 1 11-25-2014 Chronic Nonspecific chest pain (20 sources) Chest pain; Translations: [Chest pain, unspecified] Onset: 4 07-15-2024 Episodic Nutritional deficiencies (2 sources) Vitamin D deficiency; Translations: [Unspecified vitamin D deficiency] Onset: 5 Chronic Osteoarthritis (20 sources) Primary osteoarthritis, right hand; Translations: [Unilateral primary osteoarthritis of first carpometacarpal joint, right hand] Onset: 5 Resolved: 1 03-28-2021 Chronic Other aftercare (1 source) Patient encounter status; Translations: [Aftercare following joint replacement] Chronic Other and unspecified benign neoplasm (9 sources) History of polyp of colon; Translations: [Personal history of colonic polyps] 09-05-2021 Episodic Other circulatory disease (1 source) Other specified peripheral vascular diseases; Translations: [Other specified peripheral vascular diseases] Onset: 5 Chronic Other circulatory disease (1 source) Orthostatic hypotension; Translations: [Orthostatic hypotension] Episodic Other connective tissue disease (9 sources) History of repair of hip joint; Translations: [Presence of unspecified artificial hip joint] Onset: 3 08-14-2013 Chronic Other connective tissue disease (1 source) Acquired trigger finger; Translations: [Trigger finger (acquired)] Episodic Other connective tissue disease (20 sources) Fibromyalgia; Translations: [Myalgia and myositis, unspecified] Onset: 8 02-08-2018 Episodic Other connective tissue disease (11 sources) Muscle weakness; Translations: [Muscle weakness (generalized)] 07-15-2024 Episodic Other diseases of bladder and urethra (1 source) Overactive bladder; Translations: [Overactive bladder] Onset: 5 Chronic Other gastrointestinal disorders (9 sources) 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; Translations: [Irritable bowel syndrome with constipation] Onset: 7 01-01-2017 Chronic Other gastrointestinal disorders (1 source) Constipation; Translations: [Constipation, unspecified] 04-24-2024 Episodic Other gastrointestinal disorders (11 sources) Oropharyngeal dysphagia; Translations: [Dysphagia, oropharyngeal phase] 07-15-2024 Episodic Other gastrointestinal disorders (1 source) Diarrhea, unspecified; Translations: [Diarrhea, unspecified] Onset: 5 Episodic Other gastrointestinal disorders (2 sources) Dysphagia, oropharyngeal phase; Translations: [Dysphagia, oropharyngeal phase] Onset: 5 Episodic Other hereditary and degenerative nervous system conditions (11 sources) Idiopathic peripheral autonomic neuropathy; Translations: [Other idiopathic peripheral autonomic neuropathy] 07-15-2024 Chronic Other lower respiratory disease (11 sources) Dyspnea on exertion; Translations: [Other forms of dyspnea] 07-15-2024 Episodic Other lower respiratory disease (11 sources) Dyspnea; Translations: [Shortness of breath] 07-15-2024 Episodic Other nervous system disorders (17 sources) Difficulty walking; Translations: [Difficulty in walking, not elsewhere classified] 01-18-2023 Chronic Other nutritional; endocrine; and metabolic disorders (1 source) Obesity; Translations: [Obesity, unspecified] Chronic Other nutritional; endocrine; and metabolic disorders (20 sources) Body mass index 40+ - severely obese; Translations: [Morbid (severe) obesity due to excess calories] Onset: 8 12-10-2017 Chronic Other nutritional; endocrine; and metabolic disorders (8 sources) Obese class II; Translations: [Obesity, unspecified] Onset: 1 05-14-2021 Chronic Other nutritional; endocrine; and metabolic disorders (11 sources) Obesity caused by energy imbalance; Translations: [Morbid (severe) obesity due to excess calories] 07-15-2024 Chronic Other nutritional; endocrine; and metabolic disorders (1 source) Morbid (severe) obesity due to excess calories; Translations: [Morbid (severe) obesity due to excess calories] Onset: 4 Chronic Other nutritional; endocrine; and metabolic disorders (1 source) Body mass index (BMI) 45.0-49.9, adult; Translations: [Body mass index [BMI] 45.0-49.9, adult] Onset: 4 Chronic Other upper respiratory disease (1 source) Change in voice; Translations: [Unspecified voice and resonance disorder] 04-24-2024 Episodic Residual codes; unclassified (1 source) Peripheral edema; Translations: [Localized edema] 03-16-2024 Episodic Residual codes; unclassified (11 sources) Bilateral lower limb edema; Translations: [Localized edema] 07-21-2024 Episodic Residual codes; unclassified (1 source) Insomnia, unspecified; Translations: [Insomnia, unspecified] Onset: 5 Episodic Retinal detachments; defects; vascular occlusion; and retinopathy (20 sources) Degenerative disorder of macula ; Translations: [Macular degeneration (senile), unspecified] Onset: 1 01-17-2012 Chronic Rheumatoid arthritis and related disease (3 sources) Rheumatoid arthritis, unspecified; Translations: [Rheumatoid arthritis] Onset: 9 Chronic Spondylosis; intervertebral disc disorders; other back problems (20 sources) Lumbosacral spondylosis without myelopathy; Translations: [Spondylosis without myelopathy or radiculopathy, lumbosacral region] Onset: 2 Resolved: 1 03-25-2012 Chronic Spondylosis; intervertebral disc disorders; other back problems (20 sources) Spinal stenosis of lumbar region; Translations: [Spinal stenosis, lumbar region, without neurogenic claudication] Onset: 2 Resolved: 1 06-25-2019 Episodic Thyroid disorders (1 source) Hypothyroidism, unspecified; Translations: [Hypothyroidism, unspecified] Onset: 5 Chronic Past or Other Problems Problem Classification Problem Date Documented Date Episodic/Chronic Deficiency and other anemia (1 source) Vitamin B12 deficiency anemia, unspecified; Translations: [Vitamin B12 deficiency anemia, unspecified] Onset: 06-09-2024 Episodic Hemorrhoids (9 sources) Hemorrhoids; Translations: [Unspecified hemorrhoids] Onset: 02-17-2021 02-17-2021 Episodic Malaise and fatigue (8 sources) Fatigue; Translations: [Other fatigue] Onset: 05-15-2021 05-17-2021 Episodic Nausea and vomiting (2 sources) Nausea; Translations: [Nausea] Onset: 07-03-2024 Episodic Other connective tissue disease (9 sources) Pain in both feet; Translations: [Pain in right foot] Onset: 02-17-2021 02-17-2021 Episodic Other connective tissue disease (4 sources) Finding of lower limb; Translations: [Other symptoms and signs involving the musculoskeletal system] Onset: 01-16-2005 Resolved: 02-17-2021 02-17-2021 Episodic Other connective tissue disease (1 source) Muscle weakness (generalized); Translations: [Muscle weakness (generalized)] Onset: 08-30-2024 Episodic Other injuries and conditions due to external causes (2 sources) History of falling; Translations: [History of falling] Onset: 11-18-2024 Episodic Other lower respiratory disease (2 sources) Other forms of dyspnea; Translations: [Other forms of dyspnea] Onset: 08-29-2024 Episodic Other lower respiratory disease (1 source) Shortness of breath; Translations: [Shortness of breath] Onset: 08-30-2024 Episodic Other nervous system disorders (9 sources) Abnormal gait; Translations: [Unspecified abnormalities of gait and mobility] Onset: 02-17-2021 02-17-2021 Episodic Other non-traumatic joint disorders (17 sources) Pain in left shoulder; Translations: [Left shoulder pain] Onset: 12-22-2024 12-22-2024 Episodic Other nutritional; endocrine; and metabolic disorders (4 sources) Overweight; Translations: [Overweight] Onset: 11-25-2014 Resolved: 02-17-2021 02-17-2021 Episodic Other screening for suspected conditions (not mental disorders or infectious disease) (2 sources) Patient encounter status; Translations: [Other screening mammogram] Onset: 08-29-2024 Episodic Residual codes; unclassified (9 sources) Family history of cancer of colon; Translations: [Family history of malignant neoplasm of digestive organs] Onset: 02-17-2021 02-17-2021 Episodic Residual codes; unclassified (1 source) Asymptomatic menopausal state; Translations: [Asymptomatic menopausal state] Onset: 08-29-2024 Episodic Residual codes; unclassified (1 source) Localized edema; Translations: [Localized edema] Onset: 08-30-2024 Episodic Skin and subcutaneous tissue infections (3 sources) Cellulitis of right upper limb; Translations: [Cellulitis of right lower limb] Onset: 10-10-2024 Episodic Unclassified (11 sources) Colonoscopy planned Resolved: 09-10-2011 07-15-2024 NEGATED: Highlighted row has not occurred!Residual codes; unclassified (1 source) Disease Episodic Results Test Name Value Interpretation Reference Range Facility Absolute lymphocyte countOrd ered By: Rodrigue Saldaña on 03-30-2025 Lymphocytes Auto (Unsp spec) [#/Vol] 1.66 10*3/uL 0.83-4.51 [facility] Absolute neutrophil countOrd ered By: Rodrigue Saldaña on 03-30-2025 Neutrophils (Bld) [#/Vol] 3.7 10*3/uL 2.0-7.7 [facility] Anion gap in Serum or Plasma Ordered By: Rodrigue Saldaña on 03-30-2025 Anion gap [Moles/Vol] 15 mmol/L 5-15 [facility] Automated lymphocyte count a s percentage of total leukocytesOrdered By: Rodrigue Saldaña on 03-30-2025 Lymphocytes/100 WBC Auto (Unsp spec) 25.1 % 19-41 [facility] BUN/creatinine ratioOrdered By: Rodrigue Saldaña on 03-30-2025 Urea nitrogen/Creatinine [Mass ratio] 26.5 mg/mg High 10-20 [facility] Basophil percentageOrdered B y: Rodrigue Saldaña on 03-30-2025 Basophils/100 WBC (Bld) 0.6 % 0-1 [facility] Carbon dioxide, total [Moles /volume] in Central venous bloodOrdered By: naveed Saldaña on 03-30-2025 CO2 [Moles/Vol] 21.5 mmol/L 21.0-32.0 [facility] Chloride assayOrdered By: Dwayne Saldaña on 03-30-2025 Chloride [Moles/Vol] 103 mmol/L 98-108 [facility] Eosinophil percentageOrdered By: Rodrigue Saldaña on 03-30-2025 Eosinophils/100 WBC (Bld) 9.2 % High 0-5 [facility] Erythrocyte distribution wid th ratioOrdered By: naveed Saldaña on 03-30-2025 Erythrocyte distribution width (RBC) [Ratio] 15.9 % High 11.6-14.6 [facility] Erythrocyte distribution wid th standard deviationOrdered By: naveed Saldaña on 03-30-2025 Erythrocyte distribution width (RBC) [Ratio] 52.4 fl High 35.1-43.9 [facility] Glomerular filtration rate ( GFR) estimation/1.73 sq m using serum, plasma, or whole bOrdered By: Rodrigue Saldaña on 03-30-2025 GFR/1.73 sq M.predicted among non-blacks MDRD (S/P/Bld) [Vol rate/Area] 32 mL/min/{1.73_m2} Low >60 [facility] Comment on above: mL/min/1.73m2 CKD-EP I Creatinine Equation (2020) Hematocrit Auto (Bld) [Volum e fraction]Ordered By: Rodrigue Saldaña on 03-30-2025 Hematocrit (Bld) [Volume fraction] 34.4 % Low 37-47 [facility] Hemoglobin measurementOrdere d By: Rodrigue Saldaña on 03-30-2025 Hemoglobin (Bld) [Mass/Vol] 11.4 g/dL Low 12.0-15.0 [facility] Immature granulocytes/100 WB C Auto (Bld)Ordered By: Rodrigue Saldaña on 03-30-2025 Immature granulocytes/100 WBC (Bld) 0.500 % 0.0-0.9 [facility] Comment on above: IG% - Immature Granu locytes (promyelocytes, myelocytes and metamyelocytes) > 1% indicates that a LEFT SHIFT is Present. MCV (mean corpuscular volume ) determinationOrdered By: Rodrigue Saldaña on 03-30-2025 MCV (RBC) [Entitic vol] 89.4 fL 81-99 [facility] Mean corpuscular hemoglobin (MCH) determinationOrdered By: Rodrigue Saldaña on 03-30-2025 MCH (RBC) [Entitic mass] 29.6 pg 27.0-32.0 [facility] Mean corpuscular hemoglobin concentration (MCHC) determinationOrdered By: Rodrigue Saldaña on 03-30-2025 MCHC (RBC) [Mass/Vol] 33.1 g/dL 32-36 [facility] Mean platelet volume determi nationOrdered By: Rodrigue Saldaña on 03-30-2025 Platelet mean volume (Bld) [Entitic vol] 10.1 fL 6.2-12.0 [facility] Monocyte percentageOrdered B y: Rodrigue Saldaña on 03-30-2025 Monocytes/100 WBC (Bld) 8.2 % 0-10 [facility] Neutrophil percentageOrdered By: Rodrigue Saldaña on 03-30-2025 Neutrophils/100 WBC (Bld) 56.4 % 47-70 [facility] Nucleated red blood cell per centageOrdered By: Rodrigue Saldaña on 03-30-2025 Nucleated RBC/100 WBC (Bld) [Ratio] 0 % 0-5 [facility] Platelet countOrdered By: Dwayne Saldaña on 03-30-2025 Platelets (Bld) [#/Vol] 162 10*3/uL 150-450 [facility] Potassium measurement (mass/ volume)Ordered By: Rodrigue Saldaña on 03-30-2025 Potassium (Unsp spec) [Mass/Vol] 4.0 mmol/L 3.3-5.1 [facility] RBC Auto (Bld) [#/Vol]Ordere d By: Rodrigue Saldaña on 03-30-2025 RBC (Bld) [#/Vol] 3.85 10*6/uL Low 4.2-5.4 [facility] Serum creatinine measurement (mass/volume)Ordered By: Rodrigue Saldaña on 03-30-2025 Creatinine [Mass/Vol] 1.59 mg/dL High 0.70-1.20 [facility] Serum glucose measurement (m ass/volume)Ordered By: Rodrigue Saldaña on 03-30-2025 Glucose [Mass/Vol] 96 mg/dL 70-99 [facility] Serum or plasma calcium murali urement (mass/volume)Ordered By: Rodrigue Saldaña on 03-30-2025 Calcium [Mass/Vol] 8.3 mg/dL 7.6-11.0 [facility] Serum or plasma urea nitroge n measurement (mass/volume)Ordered By: Rodrigue Saldaña on 03-30-2025 Urea nitrogen [Mass/Vol] 42 mg/dL High 4-19 [facility] Sodium levelOrdered By: eTa Saldaña on 03-30-2025 Sodium [Moles/Vol] 140 mmol/L 133-145 [facility] White blood cell (WBC) count Ordered By: Rodrigue Saldaña on 03-30-2025 WBC (Bld) [#/Vol] 6.6 10*3/uL 4.4-11.0 [facility] Bilirubin Test strip Ql (U)O rdered By: Rodrigue Saldaña on 03-09-2025 Bilirubin Ql (U) Negative Negative [facility] Ketones Test strip Ql (U)Ord ered By: Rodrigue Saldaña on 03-09-2025 Ketones Ql (U) Negative Negative [facility] Nitrite Test strip Ql (U)Ord ered By: Rodrigue Saldaña on 03-09-2025 Nitrite Ql (U) Positive High Negative [facility] Protein Test strip Ql (U)Ord ered By: Rodrigue Saldaña on 03-09-2025 Protein Ql (U) 15 mg/dl High Negative [facility] Urine clarityOrdered By: Mikel Saldaña on 03-09-2025 Clarity (U) Sl. Cloudy Clear [facility] Urine color determinationOrd ered By: Rodrigue Saldaña on 03-09-2025 Color (U) Yellow Yellow [facility] Urine cultureOrdered By: Mikel Saldaña on 03-09-2025 Bacteria identified Cx Nom (U) Proteus mirabilis Abnormal [facility] Urine glucose detectionOrder ed By: Rodrigue Saldaña on 03-09-2025 Glucose Ql (U) Normal mg/dl Normal [facility] Urine leukocyte esterase det ection by dipstickOrdered By: Rodrigue Saldaña on 03-09-2025 Leukocyte esterase Test strip Ql (U) 500 /ul High Negative [facility] Urine pHOrdered By: Juvenal Saldaña on 03-09-2025 pH (U) 7.0 [pH] 5.0 - 8.0 [facility] Urine specific gravity measu rementOrdered By: Rodrigue Saldaña on 03-09-2025 Specific gravity (U) [Rel density] 1.005 1.002-1.030 [facility] Urine urobilinogen measureme ntOrdered By: Rodrigue Saldaña on 03-09-2025 Urobilinogen Ql (U) Normal mg/dl Normal [facility] Absolute lymphocyte countOrd ered By: Rodrigue Saldaña on 03-02-2025 Lymphocytes Auto (Unsp spec) [#/Vol] 1.17 10*3/uL 0.83-4.51 [facility] Absolute neutrophil countOrd ered By: Rodrigue Saldaña on 03-02-2025 Neutrophils (Bld) [#/Vol] 5.9 10*3/uL 2.0-7.7 [facility] Anion gap in Serum or Plasma Ordered By: Rodrigue Saldaña on 03-02-2025 Anion gap [Moles/Vol] 16 mmol/L High 5-15 [facility] Automated lymphocyte count a s percentage of total leukocytesOrdered By: Rodrigue Saldaña on 03-02-2025 Lymphocytes/100 WBC Auto (Unsp spec) 14.2 % Low 19-41 [facility] BUN/creatinine ratioOrdered By: Rodrigue Saldaña on 03-02-2025 Urea nitrogen/Creatinine [Mass ratio] 36.4 mg/mg High 10-20 [facility] Basophil percentageOrdered B y: Rodrigue Saldaña on 03-02-2025 Basophils/100 WBC (Bld) 0.6 % 0-1 [facility] Carbon dioxide, total [Moles /volume] in Central venous bloodOrdered By: Rodrigue Saldaña on 03-02-2025 CO2 [Moles/Vol] 20.3 mmol/L Low 21.0-32.0 [facility] Chloride assayOrdered By: Dwayne Saldaña on 03-02-2025 Chloride [Moles/Vol] 104 mmol/L 98-108 [facility] Eosinophil percentageOrdered By: Rodrigue Saldaña on 03-02-2025 Eosinophils/100 WBC (Bld) 4.0 % 0-5 [facility] Erythrocyte distribution wid th ratioOrdered By: Rodrigue Saldaña on 03-02-2025 Erythrocyte distribution width (RBC) [Ratio] 15.1 % High 11.6-14.6 [facility] Erythrocyte distribution wid th standard deviationOrdered By: Rodrigue Saldaña on 03-02-2025 Erythrocyte distribution width (RBC) [Ratio] 49.1 fl High 35.1-43.9 [facility] Glomerular filtration rate ( GFR) estimation/1.73 sq m using serum, plasma, or whole bOrdered By: Rodrigue Saldaña on 03-02-2025 GFR/1.73 sq M.predicted among non-blacks MDRD (S/P/Bld) [Vol rate/Area] 33 mL/min/{1.73_m2} Low >60 [facility] Comment on above: mL/min/1.73m2 CKD-EP I Creatinine Equation (2020) Hematocrit Auto (Bld) [Volum e fraction]Ordered By: Rodrigue Saldaña on 03-02-2025 Hematocrit (Bld) [Volume fraction] 36.9 % Low 37-47 [facility] Hemoglobin measurementOrdere d By: Rodrigue Saldaña on 03-02-2025 Hemoglobin (Bld) [Mass/Vol] 12.3 g/dL 12.0-15.0 [facility] Immature granulocytes/100 WB C Auto (Bld)Ordered By: Rodrigue Saldaña on 03-02-2025 Immature granulocytes/100 WBC (Bld) 0.600 % 0.0-0.9 [facility] Comment on above: IG% - Immature Granu locytes (promyelocytes, myelocytes and metamyelocytes) > 1% indicates that a LEFT SHIFT is Present. MCV (mean corpuscular volume ) determinationOrdered By: Rodrigue Saldaña on 03-02-2025 MCV (RBC) [Entitic vol] 87.9 fL 81-99 [facility] Mean corpuscular hemoglobin (MCH) determinationOrdered By: Rodrigue Saldaña on 03-02-2025 MCH (RBC) [Entitic mass] 29.3 pg 27.0-32.0 [facility] Mean corpuscular hemoglobin concentration (MCHC) determinationOrdered By: Rodrigue Saldaña on 03-02-2025 MCHC (RBC) [Mass/Vol] 33.3 g/dL 32-36 [facility] Mean platelet volume determi nationOrdered By: Rodrigue Saldaña on 03-02-2025 Platelet mean volume (Bld) [Entitic vol] 10.4 fL 6.2-12.0 [facility] Monocyte percentageOrdered B y: Rodrigue Saldaña on 03-02-2025 Monocytes/100 WBC (Bld) 8.6 % 0-10 [facility] Neutrophil percentageOrdered By: Dwaynejessicasalmaryann Yadavjaspreetlexie on 03-02-2025 Neutrophils/100 WBC (Bld) 72.0 % High 47-70 [facility] Nucleated red blood cell per centageOrdered By: Dwaynejessicajarred Leifjaspreetlexie on 03-02-2025 Nucleated RBC/100 WBC (Bld) [Ratio] 0 % 0-5 [facility] Platelet countOrdered By: Dwayne naveed Leifjaspreetlexie on 03-02-2025 Platelets (Bld) [#/Vol] 191 10*3/uL 150-450 [facility] Potassium measurement (mass/ volume)Ordered By: Rodrigue Saldaña on 03-02-2025 Potassium (Unsp spec) [Mass/Vol] 4.1 mmol/L 3.3-5.1 [facility] RBC Auto (Bld) [#/Vol]Ordere d By: Dwaynejessicajarred Leifkalina on 03-02-2025 RBC (Bld) [#/Vol] 4.20 10*6/uL 4.2-5.4 [facility] Serum creatinine measurement (mass/volume)Ordered By: Rodrigue Saldaña on 03-02-2025 Creatinine [Mass/Vol] 1.54 mg/dL High 0.70-1.20 [facility] Serum glucose measurement (m ass/volume)Ordered By: Rodrigue Saldaña on 03-02-2025 Glucose [Mass/Vol] 90 mg/dL 70-99 [facility] Serum or plasma calcium murali urement (mass/volume)Ordered By: Rodrigue Yadavjaspreetlexie on 03-02-2025 Calcium [Mass/Vol] 9.1 mg/dL 7.6-11.0 [facility] Serum or plasma urea nitroge n measurement (mass/volume)Ordered By: Rodrigue Saldaña on 03-02-2025 Urea nitrogen [Mass/Vol] 56 mg/dL High 4-19 [facility] Sodium levelOrdered By: Tea jarred Leifkalina on 03-02-2025 Sodium [Moles/Vol] 141 mmol/L 133-145 [facility] White blood cell (WBC) count Ordered By: Arenmaryann Leifkalina on 03-02-2025 WBC (Bld) [#/Vol] 8.2 10*3/uL 4.4-11.0 [facility] Anion gap in Serum or Plasma Ordered By: Regine Morales on 02-25-2025 Anion gap [Moles/Vol] 14 mmol/L 5-15 [facility] BUN/creatinine ratioOrdered By: Regine Morales on 02-25-2025 Urea nitrogen/Creatinine [Mass ratio] 25.9 mg/mg High 10-20 [facility] Carbon dioxide, total [Moles /volume] in Central venous bloodOrdered By: Regine Morales on 02-25-2025 CO2 [Moles/Vol] 24.7 mmol/L 21.0-32.0 [facility] Chloride assayOrdered By: Brian Morales on 02-25-2025 Chloride [Moles/Vol] 101 mmol/L 98-108 [facility] Glomerular filtration rate ( GFR) estimation/1.73 sq m using serum, plasma, or whole bOrdered By: Regine Morales on 02-25-2025 GFR/1.73 sq M.predicted among non-blacks MDRD (S/P/Bld) [Vol rate/Area] 36 mL/min/{1.73_m2} Low >60 [facility] Comment on above: mL/min/1.73m2 CKD-EP I Creatinine Equation (2020) Potassium measurement (mass/ volume)Ordered By: Regine Morales on 02-25-2025 Potassium (Unsp spec) [Mass/Vol] 3.9 mmol/L 3.3-5.1 [facility] Serum creatinine measurement (mass/volume)Ordered By: Regine Morales on 02-25-2025 Creatinine [Mass/Vol] 1.44 mg/dL High 0.70-1.20 [facility] Serum glucose measurement (m ass/volume)Ordered By: Regine Morales on 02-25-2025 Glucose [Mass/Vol] 105 mg/dL High 70-99 [facility] Serum or plasma calcium murali urement (mass/volume)Ordered By: Regine Morales on 02-25-2025 Calcium [Mass/Vol] 8.7 mg/dL 7.6-11.0 [facility] Serum or plasma urea nitroge n measurement (mass/volume)Ordered By: Regine Morales on 02-25-2025 Urea nitrogen [Mass/Vol] 37 mg/dL High 4-19 [facility] Sodium levelOrdered By: Noa Morales on 02-25-2025 Sodium [Moles/Vol] 139 mmol/L 133-145 [facility] Anion gap in Serum or Plasma Ordered By: Rodrigue Saldaña on 02-11-2025 Anion gap [Moles/Vol] 13 mmol/L 5-15 [facility] BUN/creatinine ratioOrdered By: Rodrigue Saldaña on 02-11-2025 Urea nitrogen/Creatinine [Mass ratio] 33.5 mg/mg High 10-20 [facility] Carbon dioxide, total [Moles /volume] in Central venous bloodOrdered By: Rodrigue Saldaña on 02-11-2025 CO2 [Moles/Vol] 24.0 mmol/L 21.0-32.0 [facility] Chloride assayOrdered By: Dwayne Saldaña on 02-11-2025 Chloride [Moles/Vol] 103 mmol/L 98-108 [facility] Glomerular filtration rate ( GFR) estimation/1.73 sq m using serum, plasma, or whole bOrdered By: Rodrigue Saldaña on 02-11-2025 GFR/1.73 sq M.predicted among non-blacks MDRD (S/P/Bld) [Vol rate/Area] 32 mL/min/{1.73_m2} Low >60 [facility] Comment on above: mL/min/1.73m2 CKD-EP I Creatinine Equation (2020) Potassium measurement (mass/ volume)Ordered By: Rodrigue Saldaña on 02-11-2025 Potassium (Unsp spec) [Mass/Vol] 4.1 mmol/L 3.3-5.1 [facility] Serum creatinine measurement (mass/volume)Ordered By: Rodrigue Saldaña on 02-11-2025 Creatinine [Mass/Vol] 1.57 mg/dL High 0.70-1.20 [facility] Serum glucose measurement (m ass/volume)Ordered By: Rodrigue Saldaña on 02-11-2025 Glucose [Mass/Vol] 117 mg/dL High 70-99 [facility] Serum or plasma calcium murali urement (mass/volume)Ordered By: Rodrigue Saldaña on 02-11-2025 Calcium [Mass/Vol] 8.9 mg/dL 7.6-11.0 [facility] Serum or plasma urea nitroge n measurement (mass/volume)Ordered By: Rodrigue Saldaña on 02-11-2025 Urea nitrogen [Mass/Vol] 53 mg/dL High 4-19 [facility] Sodium levelOrdered By: Tea skaggscristóballexie Saldaña on 02-11-2025 Sodium [Moles/Vol] 140 mmol/L 133-145 [facility] Absolute lymphocyte countOrd ered By: Rodrigue Saldaña on 02-03-2025 Lymphocytes Auto (Unsp spec) [#/Vol] 1.61 10*3/uL 0.83-4.51 [facility] Absolute neutrophil countOrd ered By: Rodrigue Saldaña on 02-03-2025 Neutrophils (Bld) [#/Vol] 4.2 10*3/uL 2.0-7.7 [facility] Anion gap in Serum or Plasma Ordered By: Rodrigue Saldaña on 02-03-2025 Anion gap [Moles/Vol] 14 mmol/L 5-15 [facility] Automated lymphocyte count a s percentage of total leukocytesOrdered By: Rodrigue Saldaña on 02-03-2025 Lymphocytes/100 WBC Auto (Unsp spec) 23.7 % 19-41 [facility] BUN/creatinine ratioOrdered By: Rodrigue Saldaña on 02-03-2025 Urea nitrogen/Creatinine [Mass ratio] 30.6 mg/mg High 10-20 [facility] Basophil percentageOrdered B y: Rodrigue Saldaña on 02-03-2025 Basophils/100 WBC (Bld) 0.7 % 0-1 [facility] Carbon dioxide, total [Moles /volume] in Central venous bloodOrdered By: Rodrigue Saldaña on 02-03-2025 CO2 [Moles/Vol] 22.6 mmol/L 21.0-32.0 [facility] Chloride assayOrdered By: Dwayne Saldaña on 02-03-2025 Chloride [Moles/Vol] 105 mmol/L 98-108 [facility] Eosinophil percentageOrdered By: Rodrigue Saldaña on 02-03-2025 Eosinophils/100 WBC (Bld) 5.2 % High 0-5 [facility] Erythrocyte distribution wid th ratioOrdered By: naveed Saldaña on 02-03-2025 Erythrocyte distribution width (RBC) [Ratio] 15.4 % High 11.6-14.6 [facility] Erythrocyte distribution wid th standard deviationOrdered By: Rodrigue Saldaña on 02-03-2025 Erythrocyte distribution width (RBC) [Ratio] 49.9 fl High 35.1-43.9 [facility] Glomerular filtration rate ( GFR) estimation/1.73 sq m using serum, plasma, or whole bOrdered By: Rodrigue Saldaña on 02-03-2025 GFR/1.73 sq M.predicted among non-blacks MDRD (S/P/Bld) [Vol rate/Area] 36 mL/min/{1.73_m2} Low >60 [facility] Comment on above: mL/min/1.73m2 CKD-EP I Creatinine Equation (2020) Hematocrit Auto (Bld) [Volum e fraction]Ordered By: Rodrigue Saldaña on 02-03-2025 Hematocrit (Bld) [Volume fraction] 39.1 % 37-47 [facility] Hemoglobin measurementOrdere d By: Rodrigue Saldaña on 02-03-2025 Hemoglobin (Bld) [Mass/Vol] 12.9 g/dL 12.0-15.0 [facility] Immature granulocytes/100 WB C Auto (Bld)Ordered By: Rodrigue Saldaña on 02-03-2025 Immature granulocytes/100 WBC (Bld) 0.600 % 0.0-0.9 [facility] Comment on above: IG% - Immature Granu locytes (promyelocytes, myelocytes and metamyelocytes) > 1% indicates that a LEFT SHIFT is Present. MCV (mean corpuscular volume ) determinationOrdered By: Rodrigue Saldaña on 02-03-2025 MCV (RBC) [Entitic vol] 89.3 fL 81-99 [facility] Mean corpuscular hemoglobin (MCH) determinationOrdered By: Rodrigue Saldaña on 02-03-2025 MCH (RBC) [Entitic mass] 29.5 pg 27.0-32.0 [facility] Mean corpuscular hemoglobin concentration (MCHC) determinationOrdered By: Rodrigue Saldaña on 02-03-2025 MCHC (RBC) [Mass/Vol] 33.0 g/dL 32-36 [facility] Mean platelet volume determi nationOrdered By: Rodrigue Saldaña on 02-03-2025 Platelet mean volume (Bld) [Entitic vol] 9.7 fL 6.2-12.0 [facility] Monocyte percentageOrdered B y: Rodrigue Saldaña on 02-03-2025 Monocytes/100 WBC (Bld) 8.2 % 0-10 [facility] Neutrophil percentageOrdered By: jessicamortonmaryann Saldaña on 02-03-2025 Neutrophils/100 WBC (Bld) 61.6 % 47-70 [facility] Nucleated red blood cell per centageOrdered By: Rodrigue Saldaña on 02-03-2025 Nucleated RBC/100 WBC (Bld) [Ratio] 0 % 0-5 [facility] Platelet countOrdered By: Dwayne jessicajarred Saldaña on 02-03-2025 Platelets (Bld) [#/Vol] 180 10*3/uL 150-450 [facility] Potassium measurement (mass/ volume)Ordered By: Rodrigue Saldaña on 02-03-2025 Potassium (Unsp spec) [Mass/Vol] 4.5 mmol/L 3.3-5.1 [facility] RBC Auto (Bld) [#/Vol]Ordere d By: Rodrigue Saldaña on 02-03-2025 RBC (Bld) [#/Vol] 4.38 10*6/uL 4.2-5.4 [facility] Serum creatinine measurement (mass/volume)Ordered By: Rodrigue Saldaña on 02-03-2025 Creatinine [Mass/Vol] 1.42 mg/dL High 0.70-1.20 [facility] Serum glucose measurement (m ass/volume)Ordered By: Rodrigue Saldaña on 02-03-2025 Glucose [Mass/Vol] 104 mg/dL High 70-99 [facility] Serum or plasma calcium murali urement (mass/volume)Ordered By: Rodrigue Saldaña on 02-03-2025 Calcium [Mass/Vol] 9.1 mg/dL 7.6-11.0 [facility] Serum or plasma urea nitroge n measurement (mass/volume)Ordered By: Rodrigue Saldaña on 02-03-2025 Urea nitrogen [Mass/Vol] 44 mg/dL High 4-19 [facility] Sodium levelOrdered By: Tea Saldaña on 02-03-2025 Sodium [Moles/Vol] 142 mmol/L 133-145 [facility] White blood cell (WBC) count Ordered By: Rodrigue Saldaña on 02-03-2025 WBC (Bld) [#/Vol] 6.8 10*3/uL 4.4-11.0 [facility] Anion gap in Serum or Plasma Ordered By: Rodrigue Saldaña on 01-28-2025 Anion gap [Moles/Vol] 12 mmol/L 5-15 [facility] BUN/creatinine ratioOrdered By: Rodrigue Saldaña on 01-28-2025 Urea nitrogen/Creatinine [Mass ratio] 39.0 mg/mg High 10-20 [facility] Carbon dioxide, total [Moles /volume] in Central venous bloodOrdered By: Rodrigue Saldaña on 01-28-2025 CO2 [Moles/Vol] 24.8 mmol/L 21.0-32.0 [facility] Chloride assayOrdered By: Dwayne Saldaña on 01-28-2025 Chloride [Moles/Vol] 105 mmol/L 98-108 [facility] Glomerular filtration rate ( GFR) estimation/1.73 sq m using serum, plasma, or whole bOrdered By: Rodrigue Saldaña on 01-28-2025 GFR/1.73 sq M.predicted among non-blacks MDRD (S/P/Bld) [Vol rate/Area] 39 mL/min/{1.73_m2} Low >60 [facility] Comment on above: mL/min/1.73m2 CKD-EP I Creatinine Equation (2020) Potassium measurement (mass/ volume)Ordered By: Rodrigue Saldaña on 01-28-2025 Potassium (Unsp spec) [Mass/Vol] 3.9 mmol/L 3.3-5.1 [facility] Serum creatinine measurement (mass/volume)Ordered By: Rodrigue Saldaña on 01-28-2025 Creatinine [Mass/Vol] 1.34 mg/dL High 0.70-1.20 [facility] Serum glucose measurement (m ass/volume)Ordered By: Rodrigue Saldaña on 01-28-2025 Glucose [Mass/Vol] 99 mg/dL 70-99 [facility] Serum or plasma calcium murali urement (mass/volume)Ordered By: Rodrigue Saldaña on 01-28-2025 Calcium [Mass/Vol] 8.7 mg/dL 7.6-11.0 [facility] Serum or plasma urea nitroge n measurement (mass/volume)Ordered By: Rodrigue Saldaña on 01-28-2025 Urea nitrogen [Mass/Vol] 52 mg/dL High 4-19 [facility] Sodium levelOrdered By: Tea Saldaña on 01-28-2025 Sodium [Moles/Vol] 142 mmol/L 133-145 [facility] Calculated very low density lipoprotein (VLDL) cholesterol measurementOrdered By: Regine Morales on 01-19-2025 Calculated very low density lipoprotein (VLDL) cholesterol measurement 18 mg/dL 5-40 [facility] LDL calc ser/plasOrdered By: Regine Morales on 01-19-2025 Cholesterol in LDL [Mass/Vol] 82 mg/dL [facility] Comment on above: Acpggnyodu=755-594 m g/dL & Higher Iykp=483 mg/dL or greater Screening total cholesterol/ high density lipoprotein (HDL) cholesterol ratioOrdered By: Regine Morales on 01-19-2025 Cholesterol.total/Marixa sterol in HDL [Mass ratio] 3.00 {ratio} [facility] Serum or plasma cholesterol in HDL measurement (mass/volume)Ordered By: Regine Morales on 01-19-2025 Cholesterol in HDL [Mass/Vol] 50 mg/dL >40 [facility] Comment on above: National Cholesterol Education Program (NCEP) guidelines:<40 mg/dL: Low HDL-cholesterol (major risk factor for CHD)>= 60 mg/dL: High HDL-cholesterol (negative risk factor for CHD)HDL-cholesterol is affected by a number of factors, e.g. smoking, exercise, hormones, sex and age. Serum or plasma cholesterol measurement (mass/volume)Ordered By: Regine Morales on 01-19-2025 Cholesterol [Mass/Vol] 150 mg/dL <[address] [facility] Comment on above: Cholesterol level, D esirable <200 mg/dLBorderline high cholesterol 200-239 mg/dLHigh cholesterol >=240 mg/dLRecommendations of the NCEP Adult Treatment Panel for the following risk-cutoff thresholds for the [place] population. Triglycerides measurementOrd ered By: Regine Morales on 01-19-2025 Triglyceride [Mass/Vol] 89 mg/dL <199 [facility] Comment on above: The drugs N-Acetylcy steine and Metamizole may falsely depress this assay. Normal range: <150 mg/dLBorderline High: 150-199 mg/dLHigh: 200-499 mg/dLVery High: >500 mg/dL Vitamin B12 ser/plasOrdered By: Regine Morales on 01-19-2025 Cobalamin (Vitamin B12) [Mass/Vol] 353 pg/mL 180-914 [facility] Anion gap in Serum or Plasma Ordered By: Rodrigue Saldaña on 01-14-2025 Anion gap [Moles/Vol] 12 mmol/L 5-15 [facility] BUN/creatinine ratioOrdered By: Rodrigue Saldaña on 01-14-2025 Urea nitrogen/Creatinine [Mass ratio] 38.2 mg/mg High 10-20 [facility] Carbon dioxide, total [Moles /volume] in Central venous bloodOrdered By: Rodrigue Saldaña on 01-14-2025 CO2 [Moles/Vol] 23.5 mmol/L 21.0-32.0 [facility] Chloride assayOrdered By: Dwayne Saldaña on 01-14-2025 Chloride [Moles/Vol] 104 mmol/L 98-108 [facility] Glomerular filtration rate ( GFR) estimation/1.73 sq m using serum, plasma, or whole bOrdered By: Rodrigue Saldaña on 01-14-2025 GFR/1.73 sq M.predicted among non-blacks MDRD (S/P/Bld) [Vol rate/Area] 30 mL/min/{1.73_m2} Low >60 [facility] Comment on above: mL/min/1.73m2 CKD-EP I Creatinine Equation (2020) Potassium measurement (mass/ volume)Ordered By: Rodrigue Saldaña on 01-14-2025 Potassium (Unsp spec) [Mass/Vol] 4.4 mmol/L 3.3-5.1 [facility] Serum creatinine measurement (mass/volume)Ordered By: Rodrigue Saldaña on 01-14-2025 Creatinine [Mass/Vol] 1.65 mg/dL High 0.70-1.20 [facility] Serum glucose measurement (m ass/volume)Ordered By: Rodrigue Saldaña on 01-14-2025 Glucose [Mass/Vol] 109 mg/dL High 70-99 [facility] Serum or plasma calcium murali urement (mass/volume)Ordered By: Rodrigue Saldaña on 01-14-2025 Calcium [Mass/Vol] 8.9 mg/dL 7.6-11.0 [facility] Serum or plasma urea nitroge n measurement (mass/volume)Ordered By: Rodrigue Saldaña on 01-14-2025 Urea nitrogen [Mass/Vol] 63 mg/dL High 4-19 [facility] Sodium levelOrdered By: Tea Saldaña on 01-14-2025 Sodium [Moles/Vol] 139 mmol/L 133-145 [facility] Gastroenterology Visit Repor ton 01-09-2025 Gastroenterology Visit Report [facility] [address] [place] [address] OFFICE VISIT Date of Service: 01/09/25 MR#: [id number] Acct: [id number] Name: YAA WARD Rep #: [id number] : 1940 Provider: WINNIE Chavis Age/Sex: 84/F Location: [facility] Status: Signed Intake Vital Signs 12/22/24 15:09 Height 5 ft 3 in Intake Visit Reasons: GERD, DYSPHAGIA Chief Complaint: Barretts esophagus [place] Required: No Is patient in pain?: No Allergies clindamycin Allergy (Unknown, Unverified 12/22/24 15:12) Rash/Itching morphine Allergy (Unknown, Unverified 12/22/24 15:12) GI Upset, Vomiting Penicillins Allergy (Unknown, Unverified 12/22/24 15:12) Rash [id number] Reductase Inhibitor Allergy (Unknown, Unverified 12/22/24 15:12) See Note Sulfa (Sulfonamide Antibiotics) Adverse Reaction (Intermediate, Unverified 12/22/24 15:12) thrush oxycodone Adverse Reaction (Mild, Unverified 12/22/24 15:12) Intolerance Medications ???Medication ???Instructions ???Recorded ???Confirmed ???Type handicapped placcard #1 Samples 01/18/23 12/22/24 Sampl e acetaminophen 500 mg capsule 500 mg PO TID 07/15/24 01/09/25 Hi story aspirin 81 mg tablet,delayed 81 mg PO QDAY 07/15/24 01/09/25 Hi story release cholecalciferol (vitamin D3) 25 25 mcg PO QDAY 07/15/24 01/09/25 H istory mcg (1,000 unit) capsule docusate sodium 100 mg capsule 100 mg PO BID 07/15/24 01/09/25 Hi story (Colace) docusate sodium 100 mg capsule 100 mg PO BID PRN 07/15/24 5 History (Colace) fenofibrate micronized 67 mg 134 mg PO QPM 07/15/24 12/22/24 Hi story capsule magnesium hydroxide 400 mg/5 mL 30 ml PO QDAY PRN 07/15/24 5 History oral suspension (Milk of Magnesia) nitroglycerin 0.4 mg sublingual 0.4 mg sublingual Q5M PRN 07/15/24 12/22/24 History tablet pantoprazole 40 mg tablet,delayed 40 mg PO QHS 07/15/24 01/09/25 Hi story release peg 400-propylene glycol 0.4 %-0.3 1 drp ophthalmic (eye) QDAY PRN 07/15/24 12/22/24 History % eye drops (Systane (propylene glycol)) potassium chloride 20 mEq 40 meq PO QDAY 07/15/24 01/09/25 H istory tablet,extended release potassium chloride 20 mEq 20 meq PO QPM 07/15/24 01/09/25 Hi story tablet,extended release(part/cryst) sennosides 8.6 mg-docusate sodium 1 tab-cap PO BID PRN 07/15/2411/04 History 50 mg capsule (Senna Plus) sertraline 50 mg tablet 125 mg PO QHS 07/15/24 01/09/25 Hi story triamcinolone acetonide 0.1 % 1 applic topical BID PRN 07/15/24 01/09/25 History topical cream triamcinolone acetonide 0.1 % 1 applic topical BID PRN 07/15/24 01/09/25 History topical cream vibegron 75 mg tablet (Gemtesa) 75 mg PO QDAY 07/15/24 12/22/24 Hi story vit A 300 mcg-C 200 mg-E 27 1 tab PO QDAY 07/15/24 01/09/25 Hi story mg-lutein 2 mg and minerals tablet (I-Lary) furosemide 40 mg tablet (Lasix) 40 mg PO QDAY #90 tabs 07/21/24 Rx metoprolol tartrate 25 mg tablet 25 mg PO BID #180 tabs 07/21/24 Rx pregabalin 100 mg capsule 100 mg PO TID #90 caps 11/18/24 Rx Have you fallen in the past year?: Yes Nurse's Note: OV 01.09.25 Pt here to establish care with [facility]. Pt reports formed bm regularly. Denies abdominal pain, n/v/c, and bloody stools. [facility] Medical History (Updated 12/22/24 @ 15:40 by Arjun Felton MD) Primary osteoarthritis, left shoulder Left shoulder pain Colonoscopy planned UTI (urinary tract infection) Uterine fibroid Lumbar spinal stenosis Other lack of coordination Muscle weakness (generalized) Need for assistance with personal care Personal history of colonic polyps Family history of malignant neoplasm of digestive organs Depression, unspecified Irritable bowel syndrome with constipation Pure hypercholesterolemia, unspecified Presence of unspecified artificial hip joint Radiculopathy, lumbar region Spondylosis without myelopathy or radiculopathy, lumbar region Spondylosis without myelopathy or radiculopathy, cervical region Other intervertebral disc degeneration, lumbosacral region with discogenic back pain and lower extremity pain Unspecified urinary incontinence Fibromyalgia Rash and other nonspecific skin eruption Pain in left foot Pain of right foot Unspecified abnormalities of gait and mobility Unspecified hemorrhoids Constipation, unspecified Diverticulitis of intestine, part unspecified, without perforation or abscess with bleeding Garcia's esophagus with dysplasia, unspecified Gastro-esophageal reflux disease without esophagitis Rheumatic fever without heart involvement Retinal edema Unspecified macular degeneration Age-related nuclear cataract, unspecified eye Heartburn Other symbolic dysfunctions Localized edema Dry eye (more content not included)... Normal [facility] Absolute lymphocyte countOrd ered By: Rodrigue Saldaña on 01-05-2025 Lymphocytes Auto (Unsp spec) [#/Vol] 1.91 10*3/uL 0.83-4.51 [facility] Absolute neutrophil countOrd ered By: Rodrigue Saldaña on 01-05-2025 Neutrophils (Bld) [#/Vol] 5.7 10*3/uL 2.0-7.7 [facility] Anion gap in Serum or Plasma Ordered By: Rodrigue Saldaña on 01-05-2025 Anion gap [Moles/Vol] 15 mmol/L 5-15 [facility] Automated lymphocyte count a s percentage of total leukocytesOrdered By: Rodrigue Saldaña on 01-05-2025 Lymphocytes/100 WBC Auto (Unsp spec) 22.4 % - [facility] BUN/creatinine ratioOrdered By: Rodrigue Saldaña on 01-05-2025 Urea nitrogen/Creatinine [Mass ratio] 31.3 mg/mg High 10- [facility] Basophil percentageOrdered B y: Rodrigue Saldaña on 01-05-2025 Basophils/100 WBC (Bld) 0.5 % 0-1 [facility] Carbon dioxide, total [Moles /volume] in Central venous bloodOrdered By: Rodrigue Saldaña on 01-05-2025 CO2 [Moles/Vol] 21.6 mmol/L 21.0-32.0 [facility] Chloride assayOrdered By: Dwayne Saldaña on 01-05-2025 Chloride [Moles/Vol] 103 mmol/L 98-108 [facility] Eosinophil percentageOrdered By: Rodrigue Saldaña on 01-05-2025 Eosinophils/100 WBC (Bld) 3.6 % 0-5 [facility] Erythrocyte distribution wid th ratioOrdered By: Rodrigue Saldaña on 01-05-2025 Erythrocyte distribution width (RBC) [Ratio] 15.3 % High 11.6-14.6 [facility] Erythrocyte distribution wid th standard deviationOrdered By: Rodrigue Saldaña on 01-05-2025 Erythrocyte distribution width (RBC) [Ratio] 49.3 fl High 35.1-43.9 [facility] Glomerular filtration rate ( GFR) estimation/1.73 sq m using serum, plasma, or whole bOrdered By: Rodrigue Saldaña on 01-05-2025 GFR/1.73 sq M.predicted among non-blacks MDRD (S/P/Bld) [Vol rate/Area] 30 mL/min/{1.73_m2} Low >60 [facility] Comment on above: mL/min/1.73m2 CKD-EP I Creatinine Equation (2020) Hematocrit Auto (Bld) [Volum e fraction]Ordered By: Rodrigue Saldaña on 01-05-2025 Hematocrit (Bld) [Volume fraction] 42.1 % 37-47 [facility] Hemoglobin measurementOrdere d By: Rodrigue Saldaña on 01-05-2025 Hemoglobin (Bld) [Mass/Vol] 13.6 g/dL 12.0-15.0 [facility] Immature granulocytes/100 WB C Auto (Bld)Ordered By: Rodrigue Saldaña on 01-05-2025 Immature granulocytes/100 WBC (Bld) 0.400 % 0.0-0.9 [facility] Comment on above: IG% - Immature Granu locytes (promyelocytes, myelocytes and metamyelocytes) > 1% indicates that a LEFT SHIFT is Present. MCV (mean corpuscular volume ) determinationOrdered By: Rodrigue Saldaña on 01-05-2025 MCV (RBC) [Entitic vol] 88.8 fL 81-99 [facility] [facility] Mean corpuscular hemoglobin (MCH) determinationOrdered By: Rodrigue Saldaña on 01-05-2025 MCH (RBC) [Entitic mass] 28.7 pg 27.0-32.0 [facility] Mean corpuscular hemoglobin concentration (MCHC) determinationOrdered By: Rodrigue Saldaña on 01-05-2025 MCHC (RBC) [Mass/Vol] 32.3 g/dL 32-36 [facility] Mean platelet volume determi nationOrdered By: Rodrigue Saldaña on 01-05-2025 Platelet mean volume (Bld) [Entitic vol] 10.0 fL 6.2-12.0 [facility] Monocyte percentageOrdered B y: Rodrigue Saldaña on 01-05-2025 Monocytes/100 WBC (Bld) 7.0 % 0-10 [facility] Neutrophil percentageOrdered By: Rodrigue Saldaña on 01-05-2025 Neutrophils/100 WBC (Bld) 66.1 % 47-70 [facility] Nucleated red blood cell per centageOrdered By: Rodrigue Saldaña on 01-05-2025 Nucleated RBC/100 WBC (Bld) [Ratio] 0 % 0-5 [facility] Platelet countOrdered By: Dwayne Saldaña on 01-05-2025 Platelets (Bld) [#/Vol] 190 10*3/uL 150-450 [facility] Potassium measurement (mass/ volume)Ordered By: Rodrigue Saldaña on 01-05-2025 Potassium (Unsp spec) [Mass/Vol] 4.9 mmol/L 3.3-5.1 [facility] RBC Auto (Bld) [#/Vol]Ordere d By: Rodrigue Saldaña on 01-05-2025 RBC (Bld) [#/Vol] 4.74 10*6/uL 4.2-5.4 [facility] Serum creatinine measurement (mass/volume)Ordered By: Rodrigue Saldaña on 01-05-2025 Creatinine [Mass/Vol] 1.65 mg/dL High 0.70-1.20 [facility] Serum glucose measurement (m ass/volume)Ordered By: Rodrigue Saldaña on 01-05-2025 Glucose [Mass/Vol] 92 mg/dL 70-99 [facility] Serum or plasma calcium murali urement (mass/volume)Ordered By: Rodrigue Saldaña on 01-05-2025 Calcium [Mass/Vol] 9.3 mg/dL 7.6-11.0 [facility] Serum or plasma urea nitroge n measurement (mass/volume)Ordered By: Rodrigue Saldaña on 01-05-2025 Urea nitrogen [Mass/Vol] 52 mg/dL High 4-19 [facility] Sodium levelOrdered By: Tea skaggsbenjamin Piper on 01-05-2025 Sodium [Moles/Vol] 139 mmol/L 133-145 [facility] White blood cell (WBC) count Ordered By: Rodrigue Saldaña on 01-05-2025 WBC (Bld) [#/Vol] 8.5 10*3/uL 4.4-11.0 [facility] Potassium measurement (mass/ volume)Ordered By: Rodrigue Saldaña on 01-02-2025 Potassium (Unsp spec) [Mass/Vol] 4.8 mmol/L 3.3-5.1 [facility] Anion gap in Serum or Plasma Ordered By: Rodrigue Saldaña on 12-31-2024 Anion gap [Moles/Vol] 11 mmol/L 5-15 [facility] BUN/creatinine ratioOrdered By: Rodrigue Saldaña on 12-31-2024 Urea nitrogen/Creatinine [Mass ratio] 36.3 mg/mg High 10-20 [facility] Carbon dioxide, total [Moles /volume] in Central venous bloodOrdered By: Rodrigue Saldaña on 12-31-2024 CO2 [Moles/Vol] 21.7 mmol/L 21.0-32.0 [facility] Chloride assayOrdered By: Dwayne Saldaña on 12-31-2024 Chloride [Moles/Vol] 107 mmol/L 98-108 [facility] Glomerular filtration rate ( GFR) estimation/1.73 sq m using serum, plasma, or whole bOrdered By: Rodrigue Saldaña on 12-31-2024 GFR/1.73 sq M.predicted among non-blacks MDRD (S/P/Bld) [Vol rate/Area] 32 mL/min/{1.73_m2} Low >60 [facility] Comment on above: mL/min/1.73m2 CKD-EP I Creatinine Equation (2020) Potassium measurement (mass/ volume)Ordered By: Rodrigue Saldaña on 12-31-2024 Potassium (Unsp spec) [Mass/Vol] 5.2 mmol/L High 3.3-5.1 [facility] Serum creatinine measurement (mass/volume)Ordered By: Rodrigue Saldaña on 12-31-2024 Creatinine [Mass/Vol] 1.58 mg/dL High 0.70-1.20 [facility] Serum glucose measurement (m ass/volume)Ordered By: Rodrigue Saldaña on 12-31-2024 Glucose [Mass/Vol] 112 mg/dL High 70-99 [facility] Serum or plasma calcium murali urement (mass/volume)Ordered By: Rodrigue Saldaña on 12-31-2024 Calcium [Mass/Vol] 8.7 mg/dL 7.6-11.0 [facility] Serum or plasma urea nitroge n measurement (mass/volume)Ordered By: Rodrigue Saldaña on 12-31-2024 Urea nitrogen [Mass/Vol] 57 mg/dL High 4-19 [facility] Sodium levelOrdered By: Tea Saldaña on 12-31-2024 Sodium [Moles/Vol] 140 mmol/L 133-145 [facility] Orthopedic Visit Reporton Orthopedic Visit Report [facility] [address] [place] [id number] OFFICE VISIT Date of Service: 12/22/24 MR#: [id number] Acct: [id number] Name: YAA WARD Rep #: [id number] : 1940 Provider: Dr. Arjun skaggs MD Age/Sex: 84/F Location: [email or web address] Status: Signed with Addenda ADDENDUM by RORY Rodriguez on 12/22/24 at 1546 Office Procedure Documentation entered by Tunde Rodriguez MA 12/22/24 15:46: Ortho Injections Injections Yes Subacromial Injection Left Is this a patient provided medication?: No Details: Obtained consent for injection. Under sterile conditions, injected the patients left shoulder with 2cc Kenalog,4cc Bupivacaine . The patient tolerated the injection well without any noted complication. Patient should call our office if redness develops, pain worsens or if they have any concerns. Office Meds Kenalog 40 mg/mL suspension for injection Performing Provider: Arjun Felton MD Performing Location: [facility] Administered by: Arjun Felton MD on 12/22/24 15:45 Dose Route Admin Location Dispensed Lot Number Expiration Date NDC Man ufacturer 40 mg intra-articular Left shoulder 1 mL [id number] 01/08/26 1694-9993-12 S [facility] Date cc: * Signed Intake Vital Signs 07/21/24 11:48 12/22/24 15:09 Height 5 ft 3 in 5 ft 3 in Weight: 255 lb BMI 45.1 Intake Visit Reasons: LEFT SHOULDER Chief Complaint: Left shoulder pain Accompanied by: Self Is patient in pain?: Yes Pain scale (1-10): 8 Allergies clindamycin Allergy (Unknown, Unverified 12/22/24 15:12) Rash/Itching morphine Allergy (Unknown, Unverified 12/22/24 15:12) GI Upset, Vomiting Penicillins Allergy (Unknown, Unverified 12/22/24 15:12) Rash Hwkvlok-AOK-LcS Reductase Inhibitor Allergy (Unknown, Unverified 12/22/24 15:12) See Note Sulfa (Sulfonamide Antibiotics) Adverse Reaction (Intermediate, Unverified 12/22/24 15:12) thrush oxycodone Adverse Reaction (Mild, Unverified 12/22/24 15:12) Intolerance Medications ???Medication ???Instructions ???Recorded ???Confirmed ???Type handicapped placcard #1 Samples 01/18/23 12/22/24 Sampl e acetaminophen 500 mg capsule 500 mg PO TID 07/15/24 12/22/24 Hi story aspirin 81 mg tablet,delayed 81 mg PO QDAY 07/15/24 12/22/24 Hi story release cholecalciferol (vitamin D3) 25 25 mcg PO QDAY 07/15/24 12/22/24 H istory mcg (1,000 unit) capsule docusate sodium 100 mg capsule 100 mg PO BID 07/15/24 12/22/24 Hi story (Colace) docusate sodium 100 mg capsule 100 mg PO BID PRN 07/15/24 5 History (Colace) fenofibrate micronized 67 mg 134 mg PO QPM 07/15/24 12/22/24 Hi story capsule magnesium hydroxide 400 mg/5 mL 30 ml PO QDAY PRN 07/15/24 5 History oral suspension (Milk of Magnesia) nitroglycerin 0.4 mg sublingual 0.4 mg sublingual Q5M PRN 07/15/24 12/22/24 History tablet pantoprazole 40 mg tablet,delayed 40 mg PO QHS 07/15/24 12/22/24 Hi story release peg 400-propylene glycol 0.4 %-0.3 1 drp ophthalmic (eye) QDAY PRN 07/15/24 12/22/24 History % eye drops (Systane (propylene glycol)) potassium chloride 20 mEq 40 meq PO QDAY 07/15/24 12/22/24 H istory tablet,extended release potassium chloride 20 mEq 20 meq PO QPM 07/15/24 12/22/24 Hi story tablet,extended release(part/cryst) sennosides 8.6 mg-docusate sodium 1 tab-cap PO BID PRN 07/15/24 History 50 mg capsule (Senna Plus) sertraline 50 mg tablet 125 mg PO QHS 07/15/24 12/22/24 Hi story triamcinolone acetonide 0.1 % 1 applic topical BID PRN 07/15/24 12/22/24 History topical cream triamcinolone acetonide 0.1 % 1 applic topical BID PRN 07/15/24 12/22/24 History topical cream vibegron 75 mg tablet (Gemtesa) 75 mg PO QDAY 07/15/24 12/22/24 Hi story vit A 300 mcg-C 200 mg-E 27 1 tab PO QDAY 07/15/24 12/22/24 Hi story mg-lutein 2 mg and minerals tablet (I-Lary) furosemide 40 mg tablet (Lasix) 40 mg PO QDAY #90 tabs 07/21/24 Rx metoprolol tartrate 25 mg tablet 25 mg PO BID #180 tabs 07/21/24 Rx pregabalin 100 mg capsule 100 mg PO TID #90 caps 11/18/24 Rx Have you fallen in the past year?: No [facility] Medical History (Updated 12/22/24 @ 15:40 by Arjun Felton MD) Primary osteoarthritis, left shoulder Left shoulder pain Colonoscopy planned UTI (urinary tract infection) Uterine fibroid Lumbar spinal stenosis Other lack of coordination Muscle weakness (generalized) Need for assistance with personal care Personal history of colonic polyps Family history of malignant neoplasm of digestive organs Depression, unspecified Irritable bowel (more content not included)... Normal [facility] Shoulder min 2 Viewson 12-22 Shoulder min 2 Views [facility] Imaging Services [address] [place] [id number] Shoulder min 2 Views MR#: [id number] Acct: [id number] Name: YAA WARD Rep #: [id number] : 1940 F 84 From: Nadia garcia MD PCP: Dr. Rodrigue Saldaña MD Status: DEP AMB Study: Shoulder min 2 Views Date of Exam: 12/22/24 Exam# [id number] Ordering Dr: Arjun Felton MD PROCEDURE: SHOULDER MIN 2 VIEWS 12/22/2024 REASON FOR EXAM: CHRONIC PAIN, RECENT FALLS TECHNIQUE: Three views of the left shoulder. COMPARISON: None. FINDINGS: Mild osteopenia. Moderate degenerative joint disease of the glenohumeral and acromioclavicular joints. No fracture or dislocation is seen. No lytic or blastic aggressive bone lesion is identified. RAD/Shoulder min 2 Views IMPRESSION: Degenerative joint disease. No radiographic evidence of an acute bone abnormality. Reading Location: [place] [address] CC: Dr. Rodrigue Saldaña MD; Dr. Arjun Felton MD Machine Setter: Signed Normal [facility] Anion gap in Serum or Plasma Ordered By: Regine Morales on 12-17-2024 Anion gap [Moles/Vol] 17 mmol/L High 5-15 [facility] BUN/creatinine ratioOrdered By: Regine Morales on 12-17-2024 Urea nitrogen/Creatinine [Mass ratio] 30.2 mg/mg High 10-20 [facility] Carbon dioxide, total [Moles /volume] in Central venous bloodOrdered By: Regine Morales on 12-17-2024 CO2 [Moles/Vol] 17.9 mmol/L Low 21.0-32.0 [facility] Chloride assayOrdered By: Brian Morales on 12-17-2024 Chloride [Moles/Vol] 101 mmol/L 98-108 [facility] GFR/1.73 sq M.predicted benita g non-blacks MDRD (S/P/Bld) [Vol rate/Area]Ordered By: Regine Morales on 12-17-2024 Estimated GFR (MDRD) Non-Af Amer 30 Low >60 [facility] Comment on above: mL/min/1.73m2 CKD-EP I Creatinine Equation (2020) Glomerular filtration rate ( GFR) estimation/1.73 sq m using serum, plasma, or whole bOrdered By: Regine Morales on 12-17-2024 GFR/1.73 sq M.predicted among non-blacks MDRD (S/P/Bld) [Vol rate/Area] 30 mL/min/{1.73_m2} Low >60 [facility] Comment on above: mL/min/1.73m2 CKD-EP I Creatinine Equation (2020) Potassium (Unsp spec) [Mass/ Vol]Ordered By: Regine Morales on 12-17-2024 Potassium [Moles/Vol] 4.8 mmol/L 3.3-5.1 [facility] Comment on above: Hemolysis present, R esults could be affected. Potassium measurement (mass/ volume)Ordered By: Regine Morales on 12-17-2024 Potassium (Unsp spec) [Mass/Vol] 4.8 mmol/L 3.3-5.1 [facility] Comment on above: Hemolysis present, R esults could be affected. Serum creatinine measurement (mass/volume)Ordered By: Regine Morales on 12-17-2024 Creatinine [Mass/Vol] 1.69 mg/dL High 0.70-1.20 [facility] Serum glucose measurement (m ass/volume)Ordered By: Regine Morales on 12-17-2024 Glucose [Mass/Vol] 89 mg/dL 70-99 [facility] Serum or plasma calcium murali urement (mass/volume)Ordered By: Regine Morales on 12-17-2024 Calcium [Mass/Vol] 9.5 mg/dL 7.6-11.0 [facility] Serum or plasma urea nitroge n measurement (mass/volume)Ordered By: Regine Morales on 12-17-2024 Urea nitrogen [Mass/Vol] 51 mg/dL High 4-19 [facility] Sodium levelOrdered By: Noa Morales on 12-17-2024 Sodium [Moles/Vol] 136 mmol/L 133-145 [facility] Absolute lymphocyte countOrd ered By: Rodrigue Saldaña on 12-08-2024 Lymphocytes Auto (Unsp spec) [#/Vol] 2.02 10*3/uL 0.83-4.51 [facility] Absolute neutrophil countOrd ered By: Rodrigue Saldaña on 12-08-2024 Neutrophils (Bld) [#/Vol] 3.5 10*3/uL 2.0-7.7 [facility] Anion gap in Serum or Plasma Ordered By: Rodrigue Saldaña on 12-08-2024 Anion gap [Moles/Vol] 20 mmol/L High 5-15 [facility] Automated lymphocyte count a s percentage of total leukocytesOrdered By: Rodrigue Saldaña on 12-08-2024 Lymphocytes/100 WBC Auto (Unsp spec) 30.4 % 19-41 [facility] BUN/creatinine ratioOrdered By: jessicamortonmaryann Yadavjaspreetlexie on 12-08-2024 Urea nitrogen/Creatinine [Mass ratio] 34.5 mg/mg High 10-20 [facility] Basophil percentageOrdered B y: Rodrigue Yadavjaspreetlexie on 12-08-2024 Basophils/100 WBC (Bld) 0.9 % 0-1 [facility] Carbon dioxide, total [Moles /volume] in Central venous bloodOrdered By: Rodrigue Saldaña on 12-08-2024 CO2 [Moles/Vol] 14.3 mmol/L Low 21.0-32.0 [facility] Chloride assayOrdered By: Dwayne jessicamortonmaryann Saldaña on 12-08-2024 Chloride [Moles/Vol] 105 mmol/L 98-108 [facility] Eosinophil percentageOrdered By: Rodrigue Saldaña on 12-08-2024 Eosinophils/100 WBC (Bld) 6.3 % High 0-5 [facility] Erythrocyte distribution wid th (RBC) [Ratio]Ordered By: Teamortonmaryann Saldaña on 12-08-2024 Erythrocyte distribution width (RBC) [Entitic vol] 48.8 fL High 35.1-43.9 [facility] Erythrocyte distribution wid th ratioOrdered By: [facility] Hospital[facility] Sal[facility] on 12-08-2024 Erythrocyte distribution width (RBC) [Ratio] 15.2 % High 11.6-14.6 [facility] Erythrocyte distribution wid th standard deviationOrdered By: jessicamortonmaryann Yadavjaspreetlexie on 12-08-2024 Erythrocyte distribution width (RBC) [Ratio] 48.8 fl High 35.1-43.9 [facility] GFR/1.73 sq M.predicted benita g non-blacks MDRD (S/P/Bld) [Vol rate/Area]Ordered By: Rodrigue Saldaña on 12-08-2024 Estimated GFR (MDRD) Non-Af Amer 33 Low >60 [facility] Comment on above: mL/min/1.73m2 CKD-EP I Creatinine Equation (2020) Glomerular filtration rate ( GFR) estimation/1.73 sq m using serum, plasma, or whole bOrdered By: Rodrigue Saldaña on 12-08-2024 GFR/1.73 sq M.predicted among non-blacks MDRD (S/P/Bld) [Vol rate/Area] 33 mL/min/{1.73_m2} Low >60 [facility] Comment on above: mL/min/1.73m2 CKD-EP I Creatinine Equation (2020) Hematocrit Auto (Bld) [Volum e fraction]Ordered By: Rodrigue Saldaña on 12-08-2024 Hematocrit (Bld) [Volume fraction] 39.0 % 37-47 [facility] Hemoglobin measurementOrdere d By: Rodrigue Saldaña on 12-08-2024 Hemoglobin (Bld) [Mass/Vol] 12.8 g/dL 12.0-15.0 [facility] Immature granulocytes/100 WB C Auto (Bld)Ordered By: Rodrigue Saldaña on 12-08-2024 Immature granulocytes/100 WBC (Bld) 0.300 % 0.0-0.9 [facility] Comment on above: IG% - Immature Granu locytes (promyelocytes, myelocytes and metamyelocytes) > 1% indicates that a LEFT SHIFT is Present. Lymphocytes Auto (Unsp spec) [#/Vol]Ordered By: Rodrigue Saldaña on 12-08-2024 Lymphocytes (Bld) [#/Vol] 2.02 10*3/uL 0.83-4.51 [facility] Lymphocytes/100 WBC Auto (Un sp spec)Ordered By: Rodrigue Saldaña on 12-08-2024 Lymphocytes/100 WBC (Bld) 30.4 % 19-41 [facility] MCV (mean corpuscular volume ) determinationOrdered By: Rodrigue Saldaña on 12-08-2024 MCV (RBC) [Entitic vol] 88.4 fL 81-99 [facility] Mean corpuscular hemoglobin (MCH) determinationOrdered By: Rodrigue Saldaña on 12-08-2024 MCH (RBC) [Entitic mass] 29.0 pg 27.0-32.0 [facility] Mean corpuscular hemoglobin concentration (MCHC) determinationOrdered By: Rodrigue Saldaña on 12-08-2024 MCHC (RBC) [Mass/Vol] 32.8 g/dL 32-36 [facility] Mean platelet volume determi nationOrdered By: Rodrigue Saldaña on 12-08-2024 Platelet mean volume (Bld) [Entitic vol] 10.2 fL 6.2-12.0 [facility] Monocyte percentageOrdered B y: Rodrigue Saldaña on 12-08-2024 Monocytes/100 WBC (Bld) 8.7 % 0-10 [facility] Neutrophil percentageOrdered By: Rodrigue Saldaña on 12-08-2024 Neutrophils/100 WBC (Bld) 53.4 % 47-70 [facility] Nucleated red blood cell per centageOrdered By: Rodrigue Saldaña on 12-08-2024 Nucleated RBC/100 WBC (Bld) [Ratio] 0 % 0-5 [facility] Platelet countOrdered By: Dwayne naveed Piper on 12-08-2024 Platelets (Bld) [#/Vol] 186 10*3/uL 150-450 [facility] Potassium (Unsp spec) [Mass/ Vol]Ordered By: Rodrigue Saldaña on 12-08-2024 Potassium [Moles/Vol] 4.8 mmol/L 3.3-5.1 [facility] Potassium measurement (mass/ volume)Ordered By: Rodrigue Saldaña on 12-08-2024 Potassium (Unsp spec) [Mass/Vol] 4.8 mmol/L 3.3-5.1 [facility] RBC Auto (Bld) [#/Vol]Ordere d By: Rodrigue Saldaña on 12-08-2024 RBC (Bld) [#/Vol] 4.41 10*6/uL 4.2-5.4 [facility] Serum creatinine measurement (mass/volume)Ordered By: Rodrigue Saldaña on 12-08-2024 Creatinine [Mass/Vol] 1.54 mg/dL High 0.70-1.20 [facility] Serum glucose measurement (m ass/volume)Ordered By: Rodrigue Saldaña on 12-08-2024 Glucose [Mass/Vol] 79 mg/dL 70-99 [facility] Serum or plasma calcium murali urement (mass/volume)Ordered By: Rodrigue Saldaña on 12-08-2024 Calcium [Mass/Vol] 9.2 mg/dL 7.6-11.0 [facility] Serum or plasma urea nitroge n measurement (mass/volume)Ordered By: Rodrigue Saldaña on 12-08-2024 Urea nitrogen [Mass/Vol] 53 mg/dL High 4-19 [facility] Sodium levelOrdered By: Tea Saldaña on 12-08-2024 Sodium [Moles/Vol] 139 mmol/L 133-145 [facility] White blood cell (WBC) count Ordered By: Rodrigue Saldaña on 12-08-2024 WBC (Bld) [#/Vol] 6.6 10*3/uL 4.4-11.0 [facility] Anion gap in Serum or Plasma Ordered By: Regine Morales on 12-03-2024 Anion gap [Moles/Vol] 15 mmol/L 5-15 [facility] BUN/creatinine ratioOrdered By: Regine Morales on 12-03-2024 Urea nitrogen/Creatinine [Mass ratio] 30.2 mg/mg High 10-20 [facility] Carbon dioxide, total [Moles /volume] in Central venous bloodOrdered By: Regine Morales on 12-03-2024 CO2 [Moles/Vol] 20.8 mmol/L Low 21.0-32.0 [facility] Chloride assayOrdered By: Brian Morales on 12-03-2024 Chloride [Moles/Vol] 104 mmol/L 98-108 [facility] GFR/1.73 sq M.predicted benita g non-blacks MDRD (S/P/Bld) [Vol rate/Area]Ordered By: Regine Morales on 12-03-2024 Estimated GFR (MDRD) Non-Af Amer 29 Low >60 [facility] Comment on above: mL/min/1.73m2 CKD-EP I Creatinine Equation (2020) Glomerular filtration rate ( GFR) estimation/1.73 sq m using serum, plasma, or whole bOrdered By: Regine Morales on 12-03-2024 GFR/1.73 sq M.predicted among non-blacks MDRD (S/P/Bld) [Vol rate/Area] 29 mL/min/{1.73_m2} Low >60 [facility] Comment on above: mL/min/1.73m2 CKD-EP I Creatinine Equation (2020) Potassium (Unsp spec) [Mass/ Vol]Ordered By: Regine Morales on 12-03-2024 Potassium [Moles/Vol] 5.0 mmol/L 3.3-5.1 [facility] Potassium measurement (mass/ volume)Ordered By: Regine Morales on 12-03-2024 Potassium (Unsp spec) [Mass/Vol] 5.0 mmol/L 3.3-5.1 [facility] Serum creatinine measurement (mass/volume)Ordered By: Regine Morales on 12-03-2024 Creatinine [Mass/Vol] 1.70 mg/dL High 0.70-1.20 [facility] Serum glucose measurement (m ass/volume)Ordered By: Regine Morales on 12-03-2024 Glucose [Mass/Vol] 89 mg/dL 70-99 [facility] Serum or plasma calcium murali urement (mass/volume)Ordered By: Regine Morales on 12-03-2024 Calcium [Mass/Vol] 8.1 mg/dL 7.6-11.0 [facility] Serum or plasma urea nitroge n measurement (mass/volume)Ordered By: Regine Morales on 12-03-2024 Urea nitrogen [Mass/Vol] 51 mg/dL High 4-19 [facility] Sodium levelOrdered By: Noa Morales on 12-03-2024 Sodium [Moles/Vol] 141 mmol/L 133-145 [facility] Anion gap in Serum or Plasma Ordered By: Regine Morales on 11-19-2024 Anion gap [Moles/Vol] 15 mmol/L 5-15 [facility] BUN/creatinine ratioOrdered By: Regine Morales on 11-19-2024 Urea nitrogen/Creatinine [Mass ratio] 32.7 mg/mg High 10-20 [facility] Carbon dioxide, total [Moles /volume] in Central venous bloodOrdered By: Regine Morales on 11-19-2024 CO2 [Moles/Vol] 20.2 mmol/L Low 21.0-32.0 [facility] Chloride assayOrdered By: Brian Morales on 11-19-2024 Chloride [Moles/Vol] 106 mmol/L 98-108 [facility] GFR/1.73 sq M.predicted benita g non-blacks MDRD (S/P/Bld) [Vol rate/Area]Ordered By: Regine Morales on 11-19-2024 Estimated GFR (MDRD) Non-Af Amer 29 Low >60 [facility] Comment on above: mL/min/1.73m2 CKD-EP I Creatinine Equation (2020) Glomerular filtration rate ( GFR) estimation/1.73 sq m using serum, plasma, or whole bOrdered By: Regine Morales on 11-19-2024 GFR/1.73 sq M.predicted among non-blacks MDRD (S/P/Bld) [Vol rate/Area] 29 mL/min/{1.73_m2} Low >60 [facility] Comment on above: mL/min/1.73m2 CKD-EP I Creatinine Equation (2020) Potassium (Unsp spec) [Mass/ Vol]Ordered By: Regine Morales on 11-19-2024 Potassium [Moles/Vol] 4.4 mmol/L 3.3-5.1 [facility] Potassium measurement (mass/ volume)Ordered By: Regine Morales on 11-19-2024 Potassium (Unsp spec) [Mass/Vol] 4.4 mmol/L 3.3-5.1 [facility] Serum creatinine measurement (mass/volume)Ordered By: Regine Morales on 11-19-2024 Creatinine [Mass/Vol] 1.70 mg/dL High 0.70-1.20 [facility] Serum glucose measurement (m ass/volume)Ordered By: Regine Morales on 11-19-2024 Glucose [Mass/Vol] 118 mg/dL High 70-99 [facility] Serum or plasma calcium murali urement (mass/volume)Ordered By: Regine Morales on 11-19-2024 Calcium [Mass/Vol] 9.3 mg/dL 7.6-11.0 [facility] Serum or plasma urea nitroge n measurement (mass/volume)Ordered By: Regine Morales on 11-19-2024 Urea nitrogen [Mass/Vol] 56 mg/dL High 4-19 [facility] Sodium levelOrdered By: Noa Morales on 11-19-2024 Sodium [Moles/Vol] 142 mmol/L 133-145 [facility] Absolute lymphocyte countOrd ered By: Rodrigue Saldaña on 11-10-2024 Lymphocytes Auto (Unsp spec) [#/Vol] 1.74 10*3/uL 0.83-4.51 [facility] Absolute neutrophil countOrd ered By: Rodrigue Saldaña on 11-10-2024 Neutrophils (Bld) [#/Vol] 3.5 10*3/uL 2.0-7.7 [facility] Automated lymphocyte count a s percentage of total leukocytesOrdered By: Rodrigue Saldaña on 11-10-2024 Lymphocytes/100 WBC Auto (Unsp spec) 26.8 % 19-41 [facility] BUN/creatinine ratioOrdered By: Rodrigue Saldaña on 11-10-2024 Urea nitrogen/Creatinine [Mass ratio] 32.8 mg/mg High 10-20 [facility] Basophil percentageOrdered B y: Rodrigue Saldaña on 11-10-2024 Basophils/100 WBC (Bld) 0.6 % 0-1 [facility] Carbon dioxide measurementOr dered By: Rodrigue Saldaña on 11-10-2024 CO2 [Moles/Vol] 21.7 mmol/L Low 22.0-29.0 [facility] Chloride measurementOrdered By: Rodrigue Saldaña on 11-10-2024 Chloride [Moles/Vol] 106 mmol/L 96-108 [facility] Eosinophil percentageOrdered By: Rodrigue Saldaña on 11-10-2024 Eosinophils/100 WBC (Bld) 8.6 % High 0-5 [facility] Erythrocyte distribution wid th (RBC) [Ratio]Ordered By: Rodrigue Saldaña on 11-10-2024 Erythrocyte distribution width (RBC) [Entitic vol] 52.1 fL High 35.1-43.9 [facility] Erythrocyte distribution wid th ratioOrdered By: Rodrigue Saldaña on 11-10-2024 Erythrocyte distribution width (RBC) [Ratio] 15.9 % High 11.6-14.6 [facility] Erythrocyte distribution wid th standard deviationOrdered By: Rodrigue Saldaña on 11-10-2024 Erythrocyte distribution width (RBC) [Ratio] 52.1 fl High 35.1-43.9 [facility] GFR/1.73 sq M.predicted benita g non-blacks MDRD (S/P/Bld) [Vol rate/Area]Ordered By: Rodrigue Saldaña on 11-10-2024 Estimated GFR (MDRD) Non-Af Amer 37 Low >60 [facility] Comment on above: mL/min/1.73m2 CKD-EP I Creatinine Equation (2020) Glomerular filtration rate ( GFR) estimation/1.73 sq m using serum, plasma, or whole bOrdered By: Rodrigue Saldaña on 11-10-2024 GFR/1.73 sq M.predicted among non-blacks MDRD (S/P/Bld) [Vol rate/Area] 37 mL/min/{1.73_m2} Low >60 [facility] Comment on above: mL/min/1.73m2 CKD-EP I Creatinine Equation (2020) Hematocrit Auto (Bld) [Volum e fraction]Ordered By: Rodrigue Saldaña on 11-10-2024 Hematocrit (Bld) [Volume fraction] 38.2 % 37-47 [facility] Hemoglobin measurementOrdere d By: Rodrigue Saldaña on 11-10-2024 Hemoglobin (Bld) [Mass/Vol] 12.3 g/dL 12.0-15.0 [facility] Immature granulocytes/100 WB C Auto (Bld)Ordered By: Rodrigue Saldaña on 11-10-2024 Immature granulocytes/100 WBC (Bld) 0.300 % 0.0-0.9 [facility] Comment on above: IG% - Immature Granu locytes (promyelocytes, myelocytes and metamyelocytes) > 1% indicates that a LEFT SHIFT is Present. Lymphocytes Auto (Unsp spec) [#/Vol]Ordered By: Teasalmaryann Yadavjaspreetlexie on 11-10-2024 Lymphocytes (Bld) [#/Vol] 1.74 10*3/uL 0.83-4.51 [facility] Lymphocytes/100 WBC Auto (Un sp spec)Ordered By: Teajarred Leifjaspreetlexie on 11-10-2024 Lymphocytes/100 WBC (Bld) 26.8 % 19-41 [facility] MCV (mean corpuscular volume ) determinationOrdered By: Rodrigue Saldaña on 11-10-2024 MCV (RBC) [Entitic vol] 89.9 fL 81-99 [facility] Mean corpuscular hemoglobin (MCH) determinationOrdered By: Rodrigue Saldaña on 11-10-2024 MCH (RBC) [Entitic mass] 28.9 pg 27.0-32.0 [facility] Mean corpuscular hemoglobin concentration (MCHC) determinationOrdered By: Rodrigue Saldaña on 11-10-2024 MCHC (RBC) [Mass/Vol] 32.2 g/dL 32-36 [facility] Mean platelet volume determi nationOrdered By: Teasalmaryann Yadavjaspreetlexie on 11-10-2024 Platelet mean volume (Bld) [Entitic vol] 9.7 fL 6.2-12.0 [facility] Monocyte percentageOrdered B y: Rodrigue Yadavjaspreetlexie on 11-10-2024 Monocytes/100 WBC (Bld) 9.1 % 0-10 [facility] Neutrophil percentageOrdered By: Rodrigue Yadavjaspreetlexie on 11-10-2024 Neutrophils/100 WBC (Bld) 54.6 % 47-70 [facility] Nucleated red blood cell per centageOrdered By: Teasalmaryann Yadavjaspreetlexie on 11-10-2024 Nucleated RBC/100 WBC (Bld) [Ratio] 0 % 0-5 [facility] Platelet countOrdered By: Dwayne jessicajarred Saldaña on 11-10-2024 Platelets (Bld) [#/Vol] 171 10*3/uL 150-450 [facility] RBC Auto (Bld) [#/Vol]Ordere d By: Teasalmaryann Yadavjaspreetlexie on 11-10-2024 RBC (Bld) [#/Vol] 4.25 10*6/uL 4.2-5.4 [facility] Serum creatinine measurement (mass/volume)Ordered By: Rodrigue Saldaña on 11-10-2024 Creatinine [Mass/Vol] 1.40 mg/dL High 0.70-1.20 [facility] Serum glucose measurement (m ass/volume)Ordered By: Rodrigue Saldaña on 11-10-2024 Glucose [Mass/Vol] 99 mg/dL 70-99 [facility] Serum or plasma anion gap de termination (moles/volume)Ordered By: Rodrigue Saldaña on 11-10-2024 Anion gap [Moles/Vol] 14 mmol/L 5-15 [facility] Serum or plasma calcium murali urement (mass/volume)Ordered By: Rodrigue Saldaña on 11-10-2024 Calcium [Mass/Vol] 9.1 mg/dL 7.6-11.0 [facility] Serum or plasma potassium me asurementOrdered By: Rodrigue Saldaña on 11-10-2024 Potassium [Moles/Vol] 4.5 mmol/L 3.3-5.1 [facility] Serum or plasma sodium measu rement (moles/volume)Ordered By: Rodrigue Saldaña on 11-10-2024 Sodium [Moles/Vol] 142 mmol/L 133-145 [facility] Serum or plasma urea nitroge n measurement (mass/volume)Ordered By: Rodrigue Saldaña on 11-10-2024 Urea nitrogen [Mass/Vol] 46 mg/dL High 4-19 [facility] White blood cell (WBC) count Ordered By: Rodrigue Saldaña on 11-10-2024 WBC (Bld) [#/Vol] 6.5 10*3/uL 4.4-11.0 [facility] BUN/creatinine ratioOrdered By: Regine Morales on 11-05-2024 Urea nitrogen/Creatinine [Mass ratio] 35.1 mg/mg High 10-20 [facility] Carbon dioxide measurementOr dered By: Regine Morales on 11-05-2024 CO2 [Moles/Vol] 20.5 mmol/L Low 22.0-29.0 [facility] Chloride measurementOrdered By: Regine Morales on 11-05-2024 Chloride [Moles/Vol] 103 mmol/L 96-108 [facility] Creatinine [Moles/Vol]Ordere d By: Regine Morales on 11-05-2024 Creatinine [Mass/Vol] 1.5 mg/dL High 0.6-1.0 [facility] GFR/1.73 sq M.predicted benita g non-blacks MDRD (S/P/Bld) [Vol rate/Area]Ordered By: Regine Morales on 11-05-2024 Estimated GFR (MDRD) Non-Af Amer 35 Low >60 [facility] Comment on above: mL/min/1.73m2 CKD-EP I Creatinine Equation (2020) Glomerular filtration rate ( GFR) estimation/1.73 sq m using serum, plasma, or whole bOrdered By: Regine Morales on 11-05-2024 GFR/1.73 sq M.predicted among non-blacks MDRD (S/P/Bld) [Vol rate/Area] 35 mL/min/{1.73_m2} Low >60 [facility] Comment on above: mL/min/1.73m2 CKD-EP I Creatinine Equation (2020) Serum glucose measurement (m ass/volume)Ordered By: Regine Morales on 11-05-2024 Glucose [Mass/Vol] 91 mg/dL 70-99 [facility] Serum or plasma anion gap de termination (moles/volume)Ordered By: Regine Morales on 11-05-2024 Anion gap [Moles/Vol] 17 mmol/L High 5-15 [facility] Serum or plasma calcium murali urement (mass/volume)Ordered By: Regine Morales on 11-05-2024 Calcium [Mass/Vol] 9.3 mg/dL 7.6-11.0 [facility] Serum or plasma creatinine m easurement (moles/volume)Ordered By: Regine Morales on 11-05-2024 Creatinine [Moles/Vol] 1.5 mg/dL High 0.6-1.0 [facility] Serum or plasma potassium me asurementOrdered By: Regine Morales on 11-05-2024 Potassium [Moles/Vol] 4.7 mmol/L 3.3-5.1 [facility] Serum or plasma sodium measu rement (moles/volume)Ordered By: Regine Morales on 11-05-2024 Sodium [Moles/Vol] 140 mmol/L 133-145 [facility] Serum or plasma urea nitroge n measurement (mass/volume)Ordered By: Regine Morales on 11-05-2024 Urea nitrogen [Mass/Vol] 52 mg/dL High 4-19 [facility] Blood urea nitrogen (BUN)/cr eatinine ratioOrdered By: Rodrigue Saldaña on 10-22-2024 Urea nitrogen/Creatinine [Mass ratio] 39.8 mg/mg High 10-20 [facility] Carbon dioxide measurementOr dered By: Rodrigue Saldaña on 10-22-2024 CO2 [Moles/Vol] 21.0 mmol/L 21.0-32.0 [facility] Chloride measurementOrdered By: Rodrigue Saldaña on 10-22-2024 Chloride [Moles/Vol] 109 mmol/L High 98-107 [facility] Estimated glomerular filtrat ion rate (GFR) AmericanOrdered By: Rodrigue Saldaña on 10-22-2024 Estimated GFR (MDRD) Amer 39 mL/min Low >60 [facility] Comment on above: GFR Calc Glomerular filtration rate ( GFR) estimationOrdered By: Rodrigue Saldaña on 10-22-2024 Estimated GFR (MDRD) Non-Af Amer 32 mL/min Low >60 [facility] Comment on above: Non- GFR Calc GFR/1.73 sq M.predicted among non-blacks MDRD (S/P/Bld) [Vol rate/Area] 32 mL/min/{1.73_m2} Low >60 [facility] Comment on above: Non- GFR Calc Glucose measurementOrdered B y: Rodrigue Saldaña on 10-22-2024 Glucose [Mass/Vol] 100 mg/dL 74-106 [facility] Comment on above: Fasting Glucose resu lt from 100 to 125 mg/dL suggests IMPAIRED HOMEOSTASIS per A.D.A. criteria. Potassium measurementOrdered By: Rodrigue Saldaña on 10-22-2024 Potassium [Moles/Vol] 4.4 mmol/L 3.5-5.1 [facility] Serum anion gap measurementO rdered By: Rodrigue Saldaña on 10-22-2024 Anion gap [Moles/Vol] 10 mmol/L 5-15 [facility] Serum or plasma calcium murali urement (mass/volume)Ordered By: Rodrigue Saldaña on 10-22-2024 Calcium [Mass/Vol] 9.2 mg/dL 8.5-10.1 [facility] Serum or plasma creatinine m easurement (mass/volume)Ordered By: Rodrigue Saldaña on 10-22-2024 Creatinine [Mass/Vol] 1.61 mg/dL High 0.55-1.02 [facility] Comment on above: The validity of the calculated GFR & GFRAA in patients over 70 years has not been determined. Clinical correlation is essential. Serum or plasma urea nitroge n measurement (mass/volume)Ordered By: Rodrigue Saldaña on 10-22-2024 Urea nitrogen [Mass/Vol] 64 mg/dL High 7-18 [facility] Sodium levelOrdered By: Tea skaggscristóballexie Saldaña on 10-22-2024 Sodium [Moles/Vol] 140 mmol/L 136-145 [facility] High density lipoprotein (HD L) measurementOrdered By: Rodrigue Saldaña on 10-20-2024 Cholesterol in HDL [Mass/Vol] 49 mg/dL >40 [facility] Comment on above: The drugs N-Acetylcy steine and Metamizole may falsely depress this assay. Reference Range HDL <40 mg/dL Low HDL Cholesterol HDL >or= 60 mg/dL High HDL Cholesterol Low density lipoprotein (LDL ) cholesterol measurementOrdered By: Rodrigue Saldaña on 10-20-2024 Cholesterol in LDL [Mass/Vol] 84 mg/dL 0-130 [facility] Serum or plasma cholesterol measurement (mass/volume)Ordered By: Rodrigue Saldaña on 10-20-2024 Cholesterol [Mass/Vol] 162 mg/dL <200 [facility] Comment on above: <200 mg/dL Desirable 200-240 mg/dL Borderline >240 mg/dL High Risk Triglycerides measurementOrd ered By: Rodrigue Saldaña on 10-20-2024 Triglyceride [Mass/Vol] 147 mg/dL <199 [facility] Comment on above: The drugs N-Acetylcy steine and Metamizole may falsely depress this assay.Serum Triglycerides Reference Interval Normal <150 mg/dL Borderline high 150 - 199 mg/dL High 200 - 499 mg/dL Very High > or = 500 mg/dL Very low density lipoprotein (VLDL) cholesterol measurementOrdered By: Rodrigue Saldaña on 10-20-2024 Very low density lipoprotein (VLDL) cholesterol measurement 29 mg/dL 5-40 [facility] VLDL Cholesterol 29 mg/dL 5-40 [facility] Vitamin B12 measurementOrder ed By: Rodrigue Saldaña on 10-20-2024 Cobalamin (Vitamin B12) [Mass/Vol] 416 pg/mL 211-911 [facility] Absolute lymphocyte countOrd ered By: Rodrigue Saldaña on 10-13-2024 Lymphocytes Auto (Unsp spec) [#/Vol] 1.93 10*3/uL 0.83-4.51 [facility] Absolute neutrophil countOrd ered By: Rodrigue Sladaña on 10-13-2024 Neutrophils (Bld) [#/Vol] 2.8 10*3/uL 2.0-7.7 [facility] Automated lymphocyte count a s percentage of total leukocytesOrdered By: Rodrigue Saldaña on 10-13-2024 Lymphocytes/100 WBC Auto (Unsp spec) 31.3 % 19-41 [facility] Basophil percentageOrdered B y: Rodrigue Saldaña on 10-13-2024 Basophils/100 WBC (Bld) 0.8 % 0-1 [facility] Blood urea nitrogen (BUN)/cr eatinine ratioOrdered By: Rodrigue Saldaña on 10-13-2024 Urea nitrogen/Creatinine [Mass ratio] 32.4 mg/mg High 10-20 [facility] Carbon dioxide measurementOr dered By: Rodrigue Saldaña on 10-13-2024 CO2 [Moles/Vol] 22.0 mmol/L 21.0-32.0 [facility] Chloride measurementOrdered By: Rodrigue Saldaña on 10-13-2024 Chloride [Moles/Vol] 109 mmol/L High 98-107 [facility] Eosinophil percentageOrdered By: Rodrigue Saldaña on 10-13-2024 Eosinophils/100 WBC (Bld) 11.4 % High 0-5 [facility] Erythrocyte distribution wid th (RBC) [Ratio]Ordered By: Rodrigue Saldaña on 10-13-2024 Erythrocyte distribution width (RBC) [Entitic vol] 55.2 fL High 35.1-43.9 [facility] Erythrocyte distribution wid th ratioOrdered By: Rodrigue Saldaña on 10-13-2024 Erythrocyte distribution width (RBC) [Ratio] 16.3 % High 11.6-14.6 [facility] Erythrocyte distribution wid th standard deviationOrdered By: Rodrigue Saldaña on 10-13-2024 Erythrocyte distribution width (RBC) [Ratio] 55.2 fl High 35.1-43.9 [facility] Estimated glomerular filtrat ion rate (GFR) AmericanOrdered By: Rodrigue Saldaña on 10-13-2024 Estimated GFR (MDRD) Amer 43 mL/min Low >60 [facility] Comment on above: GFR Calc Glomerular filtration rate ( GFR) estimationOrdered By: Rodrigue Saldaña on 10-13-2024 Estimated GFR (MDRD) Non-Af Amer 36 mL/min Low >60 [facility] Comment on above: Non- GFR Calc GFR/1.73 sq M.predicted among non-blacks MDRD (S/P/Bld) [Vol rate/Area] 36 mL/min/{1.73_m2} Low >60 [facility] Comment on above: Non- GFR Calc Glucose measurementOrdered B y: Rodrigue Saldaña on 10-13-2024 Glucose [Mass/Vol] 89 mg/dL 74-106 [facility] Hematocrit Auto (Bld) [Volum e fraction]Ordered By: Rodrigue Saldaña on 10-13-2024 Hematocrit (Bld) [Volume fraction] 37.4 % 37-47 [facility] Hemoglobin measurementOrdere d By: Rodrigue Saldaña on 10-13-2024 Hemoglobin (Bld) [Mass/Vol] 11.8 g/dL Low 12.0-15.0 [facility] Immature granulocytes/100 WB C Auto (Bld)Ordered By: Rodrigue Saldaña on 10-13-2024 Immature granulocytes/100 WBC (Bld) 0.200 % 0.0-0.9 [facility] Comment on above: IG% - Immature Granu locytes (promyelocytes, myelocytes and metamyelocytes) > 1% indicates that a LEFT SHIFT is Present. Lymphocytes Auto (Unsp spec) [#/Vol]Ordered By: naveed Saldaña on 10-13-2024 Lymphocytes (Bld) [#/Vol] 1.93 10*3/uL 0.83-4.51 [facility] Lymphocytes/100 WBC Auto (Un sp spec)Ordered By: Rodrigue Saldaña on 10-13-2024 Lymphocytes/100 WBC (Bld) 31.3 % 19-41 [facility] MCV (mean corpuscular volume ) determinationOrdered By: Rodrigue Saldaña on 10-13-2024 MCV (RBC) [Entitic vol] 91.2 fL 81-99 [facility] Mean corpuscular hemoglobin (MCH) determinationOrdered By: Rodrigue Saldaña on 10-13-2024 MCH (RBC) [Entitic mass] 28.8 pg 27.0-32.0 [facility] Mean corpuscular hemoglobin concentration (MCHC) determinationOrdered By: Rodrigue Saldaña on 10-13-2024 MCHC (RBC) [Mass/Vol] 31.6 g/dL Low 32-36 [facility] Mean platelet volume determi nationOrdered By: naveed Saldaña on 10-13-2024 Platelet mean volume (Bld) [Entitic vol] 10.5 fL 6.2-12.0 [facility] Monocyte percentageOrdered B y: Rodrigue Saldaña on 10-13-2024 Monocytes/100 WBC (Bld) 10.2 % High 0-10 [facility] Neutrophil percentageOrdered By: naveed Saldaña on 10-13-2024 Neutrophils/100 WBC (Bld) 46.1 % Low 47-70 [facility] Nucleated red blood cell per centageOrdered By: Rodrigue Saldaña on 10-13-2024 Nucleated RBC/100 WBC (Bld) [Ratio] 0 % 0-5 [facility] Platelet countOrdered By: Dwayne Saldaña on 10-13-2024 Platelets (Bld) [#/Vol] 169 10*3/uL 150-450 [facility] Potassium measurementOrdered By: Rodrigue Saldaña on 10-13-2024 Potassium [Moles/Vol] 4.6 mmol/L 3.5-5.1 [facility] RBC Auto (Bld) [#/Vol]Ordere d By: Rodrigue Saldaña on 10-13-2024 RBC (Bld) [#/Vol] 4.10 10*6/uL Low 4.2-5.4 [facility] Serum anion gap measurementO rdered By: Rodrigue Saldaña on 10-13-2024 Anion gap [Moles/Vol] 10 mmol/L 5-15 [facility] Serum or plasma calcium murali urement (mass/volume)Ordered By: Rodrigue Saldaña on 10-13-2024 Calcium [Mass/Vol] 8.9 mg/dL 8.5-10.1 [facility] Serum or plasma creatinine m easurement (mass/volume)Ordered By: Rodrigue Saldaña on 10-13-2024 Creatinine [Mass/Vol] 1.48 mg/dL High 0.55-1.02 [facility] Comment on above: The validity of the calculated GFR & GFRAA in patients over 70 years has not been determined. Clinical correlation is essential. Serum or plasma urea nitroge n measurement (mass/volume)Ordered By: Rodrigue Saldaña on 10-13-2024 Urea nitrogen [Mass/Vol] 48 mg/dL High 7-18 [facility] Sodium levelOrdered By: Tea Saldaña on 10-13-2024 Sodium [Moles/Vol] 141 mmol/L 136-145 [facility] White blood cell (WBC) count Ordered By: Rodrigue Saldaña on 10-13-2024 WBC (Bld) [#/Vol] 6.2 10*3/uL 4.4-11.0 [facility] Blood urea nitrogen (BUN)/cr eatinine ratioOrdered By: Rodrigue Saldaña on 10-08-2024 Urea nitrogen/Creatinine [Mass ratio] 30.3 mg/mg High 10-20 [facility] Carbon dioxide measurementOr dered By: Rodrigue Saldaña on 10-08-2024 CO2 [Moles/Vol] 24.0 mmol/L 21.0-32.0 [facility] Chloride measurementOrdered By: Rodrigue Saldaña on 10-08-2024 Chloride [Moles/Vol] 106 mmol/L 98-107 [facility] Estimated glomerular filtrat ion rate (GFR) AmericanOrdered By: Rodrigue Saldaña on 10-08-2024 Estimated GFR (MDRD) Amer 44 mL/min Low >60 [facility] Comment on above: GFR Calc Glomerular filtration rate ( GFR) estimationOrdered By: Rodrigue Saldaña on 10-08-2024 Estimated GFR (MDRD) Non-Af Amer 37 mL/min Low >60 [facility] Comment on above: Non- GFR Calc GFR/1.73 sq M.predicted among non-blacks MDRD (S/P/Bld) [Vol rate/Area] 37 mL/min/{1.73_m2} Low >60 [facility] Comment on above: Non- GFR Calc Glucose measurementOrdered B y: Rodrigue Saldaña on 10-08-2024 Glucose [Mass/Vol] 107 mg/dL High 74-106 [facility] Comment on above: Fasting Glucose resu lt from 100 to 125 mg/dL suggests IMPAIRED HOMEOSTASIS per A.D.A. criteria. Potassium measurementOrdered By: Rodrigue Saldaña on 10-08-2024 Potassium [Moles/Vol] 4.0 mmol/L 3.5-5.1 [facility] Serum anion gap measurementO rdered By: Rodrigue Saldaña on 10-08-2024 Anion gap [Moles/Vol] 9 mmol/L 5-15 [facility] Serum or plasma calcium murali urement (mass/volume)Ordered By: Rodrigue Saldaña on 10-08-2024 Calcium [Mass/Vol] 9.1 mg/dL 8.5-10.1 [facility] Serum or plasma creatinine m easurement (mass/volume)Ordered By: Rodrigue Saldaña on 10-08-2024 Creatinine [Mass/Vol] 1.45 mg/dL High 0.55-1.02 [facility] Comment on above: The validity of the calculated GFR & GFRAA in patients over 70 years has not been determined. Clinical correlation is essential. Serum or plasma urea nitroge n measurement (mass/volume)Ordered By: Rodrigue Saldaña on 10-08-2024 Urea nitrogen [Mass/Vol] 44 mg/dL High 7-18 [facility] Sodium levelOrdered By: Tea Saldaña on 10-08-2024 Sodium [Moles/Vol] 139 mmol/L 136-145 [facility] Blood urea nitrogen (BUN)/cr eatinine ratioOrdered By: Rodrigue Saldaña on 09-24-2024 Urea nitrogen/Creatinine [Mass ratio] 26.7 mg/mg High 10-20 [facility] Carbon dioxide measurementOr dered By: Rodrigue Saldaña on 09-24-2024 CO2 [Moles/Vol] 25.0 mmol/L 21.0-32.0 [facility] Chloride measurementOrdered By: Rodrigue Saldaña on 09-24-2024 Chloride [Moles/Vol] 105 mmol/L 98-107 [facility] Estimated glomerular filtrat ion rate (GFR) AmericanOrdered By: Rodrigue Saldaña on 09-24-2024 Estimated GFR (MDRD) Amer 44 mL/min Low >60 [facility] Comment on above: GFR Calc Glomerular filtration rate ( GFR) estimationOrdered By: Rodrigue Saldaña on 09-24-2024 Estimated GFR (MDRD) Non-Af Amer 36 mL/min Low >60 [facility] Comment on above: Non- GFR Calc GFR/1.73 sq M.predicted among non-blacks MDRD (S/P/Bld) [Vol rate/Area] 36 mL/min/{1.73_m2} Low >60 [facility] Comment on above: Non- GFR Calc Glucose measurementOrdered B y: Rodrigue Saldaña on 09-24-2024 Glucose [Mass/Vol] 101 mg/dL 74-106 [facility] Comment on above: Fasting Glucose resu lt from 100 to 125 mg/dL suggests IMPAIRED HOMEOSTASIS per A.D.A. criteria. Potassium measurementOrdered By: Rodrigue Saldaña on 09-24-2024 Potassium [Moles/Vol] 4.0 mmol/L 3.5-5.1 [facility] Serum anion gap measurementO rdered By: Rodrigue Saldaña on 09-24-2024 Anion gap [Moles/Vol] 8 mmol/L 5-15 [facility] Serum or plasma calcium murali urement (mass/volume)Ordered By: Rodrigue Saldaña on 09-24-2024 Calcium [Mass/Vol] 8.8 mg/dL 8.5-10.1 [facility] Serum or plasma creatinine m easurement (mass/volume)Ordered By: Rodrigue Saldaña on 09-24-2024 Creatinine [Mass/Vol] 1.46 mg/dL High 0.55-1.02 [facility] Comment on above: The validity of the calculated GFR & GFRAA in patients over 70 years has not been determined. Clinical correlation is essential. Serum or plasma urea nitroge n measurement (mass/volume)Ordered By: Rodrigue Saldaña on 09-24-2024 Urea nitrogen [Mass/Vol] 39 mg/dL High 7-18 [facility] Sodium levelOrdered By: Tea Saldaña on 09-24-2024 Sodium [Moles/Vol] 138 mmol/L 136-145 [facility] Absolute neutrophil countOrd ered By: Rodrigue Saldaña on 09-15-2024 Neutrophils (Bld) [#/Vol] 5.1 10*3/uL 2.0-7.7 [facility] Basophil percentageOrdered B y: Rodrigue Saldaña on 09-15-2024 Basophils/100 WBC (Bld) 0.8 % 0-1 [facility] Blood urea nitrogen (BUN)/cr eatinine ratioOrdered By: Rodrigue Saldaña on 09-15-2024 Urea nitrogen/Creatinine [Mass ratio] 30.7 mg/mg High 10-20 [facility] Carbon dioxide measurementOr dered By: Rodrigue Saldaña on 09-15-2024 CO2 [Moles/Vol] 21.0 mmol/L 21.0-32.0 [facility] Chloride measurementOrdered By: Rodrigue Saldaña on 09-15-2024 Chloride [Moles/Vol] 108 mmol/L High 98-107 [facility] Eosinophil percentageOrdered By: Rodrigue Saldaña on 09-15-2024 Eosinophils/100 WBC (Bld) 5.1 % High 0-5 [facility] Erythrocyte distribution wid th (RBC) [Ratio]Ordered By: Rodrigue Saldaña on 09-15-2024 Erythrocyte distribution width (RBC) [Entitic vol] 53.6 fL High 35.1-43.9 [facility] Erythrocyte distribution wid th ratioOrdered By: Rodrigue Saldaña on 09-15-2024 Erythrocyte distribution width (RBC) [Ratio] 16.4 % High 11.6-14.6 [facility] Estimated glomerular filtrat ion rate (GFR) AmericanOrdered By: Rodrigue Saldaña on 09-15-2024 Estimated GFR (MDRD) Amer 42 mL/min Low >60 [facility] Comment on above: GFR Calc Glomerular filtration rate ( GFR) estimationOrdered By: Rodrigue Saldaña on 09-15-2024 Estimated GFR (MDRD) Non-Af Amer 34 mL/min Low >60 [facility] Comment on above: Non- GFR Calc Glucose measurementOrdered B y: Rodrigue Saldaña on 09-15-2024 Glucose [Mass/Vol] 84 mg/dL 74-106 [facility] Hematocrit Auto (Bld) [Volum e fraction]Ordered By: Rodrigue Saldaña on 09-15-2024 Hematocrit (Bld) [Volume fraction] 37.5 % 37-47 [facility] Hemoglobin measurementOrdere d By: Rodrigue Saldaña on 09-15-2024 Hemoglobin (Bld) [Mass/Vol] 11.7 g/dL Low 12.0-15.0 [facility] Immature granulocytes/100 WB C Auto (Bld)Ordered By: Rodrigue Saldaña on 09-15-2024 Immature granulocytes/100 WBC (Bld) 0.500 % 0.0-0.9 [facility] Comment on above: IG% - Immature Granu locytes (promyelocytes, myelocytes and metamyelocytes) > 1% indicates that a LEFT SHIFT is Present. Lymphocytes Auto (Unsp spec) [#/Vol]Ordered By: Rodrigue Saldaña on 09-15-2024 Lymphocytes (Bld) [#/Vol] 1.95 10*3/uL 0.83-4.51 [facility] Lymphocytes/100 WBC Auto (Un sp spec)Ordered By: Rodrigue Saldaña on 09-15-2024 Lymphocytes/100 WBC (Bld) 23.5 % 19-41 [facility] MCV (mean corpuscular volume ) determinationOrdered By: Rodrigue Saldaña on 09-15-2024 MCV (RBC) [Entitic vol] 90.1 fL 81-99 [facility] Mean corpuscular hemoglobin (MCH) determinationOrdered By: Rodrigue Saldaña on 09-15-2024 MCH (RBC) [Entitic mass] 28.1 pg 27.0-32.0 [facility] Mean corpuscular hemoglobin concentration (MCHC) determinationOrdered By: Rodrigue Saldaña on 09-15-2024 MCHC (RBC) [Mass/Vol] 31.2 g/dL Low 32-36 [facility] Mean platelet volume determi nationOrdered By: Rodrigue Saldaña on 09-15-2024 Platelet mean volume (Bld) [Entitic vol] 10.4 fL 6.2-12.0 [facility] Monocyte percentageOrdered B y: Rodrigue Saldaña on 09-15-2024 Monocytes/100 WBC (Bld) 8.7 % 0-10 [facility] Neutrophil percentageOrdered By: Rodrigue Saldaña on 09-15-2024 Neutrophils/100 WBC (Bld) 61.4 % 47-70 [facility] Nucleated red blood cell per centageOrdered By: Rodrigue Saldaña on 09-15-2024 Nucleated RBC/100 WBC (Bld) [Ratio] 0 % 0-5 [facility] Platelet countOrdered By: Dwayne Saldaña on 09-15-2024 Platelets (Bld) [#/Vol] 225 10*3/uL 150-450 [facility] Potassium measurementOrdered By: Rodrigue Saldaña on 09-15-2024 Potassium [Moles/Vol] 4.8 mmol/L 3.5-5.1 [facility] RBC Auto (Bld) [#/Vol]Ordere d By: Rodrigue Saldaña on 09-15-2024 RBC (Bld) [#/Vol] 4.16 10*6/uL Low 4.2-5.4 [facility] Serum anion gap measurementO rdered By: Rodrigue Saldaña on 09-15-2024 Anion gap [Moles/Vol] 9 mmol/L 5-15 [facility] Serum or plasma calcium murali urement (mass/volume)Ordered By: Rodrigue Saldaña on 09-15-2024 Calcium [Mass/Vol] 8.9 mg/dL 8.5-10.1 [facility] Serum or plasma creatinine m easurement (mass/volume)Ordered By: Rodrigue Saldaña on 09-15-2024 Creatinine [Mass/Vol] 1.53 mg/dL High 0.55-1.02 [facility] Comment on above: The validity of the calculated GFR & GFRAA in patients over 70 years has not been determined. Clinical correlation is essential. Serum or plasma urea nitroge n measurement (mass/volume)Ordered By: Rodrigue Saldaña on 09-15-2024 Urea nitrogen [Mass/Vol] 47 mg/dL High 7-18 [facility] Sodium levelOrdered By: Tea Saldaña on 09-15-2024 Sodium [Moles/Vol] 138 mmol/L 136-145 [facility] White blood cell (WBC) count Ordered By: Rodrigue Saldaña on 09-15-2024 WBC (Bld) [#/Vol] 8.3 10*3/uL 4.4-11.0 [facility] Blood urea nitrogen (BUN)/cr eatinine ratioOrdered By: Rodrigue Saldaña on 08-27-2024 Urea nitrogen/Creatinine [Mass ratio] 25.7 mg/mg High 10-20 [facility] Carbon dioxide measurementOr dered By: Rodrigue Saldaña on 08-27-2024 CO2 [Moles/Vol] 26.0 mmol/L 21.0-32.0 [facility] Chloride measurementOrdered By: Rodrigue Saldaña on 08-27-2024 Chloride [Moles/Vol] 106 mmol/L 98-107 [facility] Estimated glomerular filtrat ion rate (GFR) AmericanOrdered By: Rodrigue Saldaña on 08-27-2024 Estimated GFR (MDRD) Amer 45 mL/min Low >60 [facility] Comment on above: GFR Calc Glomerular filtration rate ( GFR) estimationOrdered By: Rodrigue Saldaña on 08-27-2024 Estimated GFR (MDRD) Non-Af Amer 37 mL/min Low >60 [facility] Comment on above: Non- GFR Calc Glucose measurementOrdered B y: Rodrigue Saldaña on 08-27-2024 Glucose [Mass/Vol] 99 mg/dL 74-106 [facility] Potassium measurementOrdered By: Rodrigue Saldaña on 08-27-2024 Potassium [Moles/Vol] 4.1 mmol/L 3.5-5.1 [facility] Serum anion gap measurementO rdered By: Rodrigue Saldaña on 08-27-2024 Anion gap [Moles/Vol] 7 mmol/L 5-15 [facility] Serum or plasma calcium murali urement (mass/volume)Ordered By: Rodrigue Saldaña on 08-27-2024 Calcium [Mass/Vol] 8.8 mg/dL 8.5-10.1 [facility] Serum or plasma creatinine m easurement (mass/volume)Ordered By: Rodrigue Saldaña on 08-27-2024 Creatinine [Mass/Vol] 1.44 mg/dL High 0.55-1.02 [facility] Comment on above: The validity of the calculated GFR & GFRAA in patients over 70 years has not been determined. Clinical correlation is essential. Serum or plasma urea nitroge n measurement (mass/volume)Ordered By: Rodrigue Saldaña on 08-27-2024 Urea nitrogen [Mass/Vol] 37 mg/dL High 7-18 [facility] Sodium levelOrdered By: Tea skaggsbenjamin Piper on 08-27-2024 Sodium [Moles/Vol] 140 mmol/L 136-145 [facility] Absolute neutrophil countOrd ered By: Rodirgue Saldaña on 08-18-2024 Neutrophils (Bld) [#/Vol] 3.4 10*3/uL 2.0-7.7 [facility] Basophil percentageOrdered B y: Rodrigue Saldaña on 08-18-2024 Basophils/100 WBC (Bld) 0.8 % 0-1 [facility] Blood urea nitrogen (BUN)/cr eatinine ratioOrdered By: Rodrigue Saldaña on 08-18-2024 Urea nitrogen/Creatinine [Mass ratio] 29.6 mg/mg High 10-20 [facility] Carbon dioxide measurementOr dered By: Rodrigue Saldaña on 08-18-2024 CO2 [Moles/Vol] 24.0 mmol/L 21.0-32.0 [facility] Chloride measurementOrdered By: Rodrigue Saldaña on 08-18-2024 Chloride [Moles/Vol] 110 mmol/L High 98-107 [facility] Eosinophil percentageOrdered By: Rodrigue Saldaña on 08-18-2024 Eosinophils/100 WBC (Bld) 6.2 % High 0-5 [facility] Erythrocyte distribution wid th (RBC) [Ratio]Ordered By: Rodrigue Saldaña on 08-18-2024 Erythrocyte distribution width (RBC) [Entitic vol] 52.5 fL High 35.1-43.9 [facility] Erythrocyte distribution wid th ratioOrdered By: Rodrigue Saldaña on 08-18-2024 Erythrocyte distribution width (RBC) [Ratio] 16.1 % High 11.6-14.6 [facility] Estimated glomerular filtrat ion rate (GFR) AmericanOrdered By: Rodrigue Saldaña on 08-18-2024 Estimated GFR (MDRD) Amer 53 mL/min Low >60 [facility] Comment on above: GFR Calc Glomerular filtration rate ( GFR) estimationOrdered By: Rodrigue Saldaña on 08-18-2024 Estimated GFR (MDRD) Non-Af Amer 43 mL/min Low >60 [facility] Comment on above: Non- GFR Calc Glucose measurementOrdered B y: Rodrigue Saldaña on 08-18-2024 Glucose [Mass/Vol] 86 mg/dL 74-106 [facility] Hematocrit Auto (Bld) [Volum e fraction]Ordered By: Rodrigue Saldaña on 08-18-2024 Hematocrit (Bld) [Volume fraction] 40.1 % 37-47 [facility] Hemoglobin measurementOrdere d By: Rodrigue Saldaña on 08-18-2024 Hemoglobin (Bld) [Mass/Vol] 12.5 g/dL 12.0-15.0 [facility] Immature granulocytes/100 WB C Auto (Bld)Ordered By: Rodrigue Saldaña on 08-18-2024 Immature granulocytes/100 WBC (Bld) 0.300 % 0.0-0.9 [facility] Comment on above: IG% - Immature Granu locytes (promyelocytes, myelocytes and metamyelocytes) > 1% indicates that a LEFT SHIFT is Present. Lymphocytes Auto (Unsp spec) [#/Vol]Ordered By: Rodrigue Saldaña on 08-18-2024 Lymphocytes (Bld) [#/Vol] 1.70 10*3/uL 0.83-4.51 [facility] Lymphocytes/100 WBC Auto (Un sp spec)Ordered By: Rodrigue Saldaña on 08-18-2024 Lymphocytes/100 WBC (Bld) 27.7 % 19-41 [facility] MCV (mean corpuscular volume ) determinationOrdered By: Rodrigue Saldaña on 08-18-2024 MCV (RBC) [Entitic vol] 90.5 fL 81-99 [facility] Mean corpuscular hemoglobin (MCH) determinationOrdered By: Rodrigue Saldaña on 08-18-2024 MCH (RBC) [Entitic mass] 28.2 pg 27.0-32.0 [facility] Mean corpuscular hemoglobin concentration (MCHC) determinationOrdered By: Rodrigue Saldaña on 08-18-2024 MCHC (RBC) [Mass/Vol] 31.2 g/dL Low 32-36 [facility] Mean platelet volume determi nationOrdered By: Rodrigue Saldaña on 08-18-2024 Platelet mean volume (Bld) [Entitic vol] 10.4 fL 6.2-12.0 [facility] Monocyte percentageOrdered B y: Rodrigue Saldaña on 08-18-2024 Monocytes/100 WBC (Bld) 9.0 % 0-10 [facility] Neutrophil percentageOrdered By: Rodrigue Saldaña on 08-18-2024 Neutrophils/100 WBC (Bld) 56.0 % 47-70 [facility] Nucleated red blood cell per centageOrdered By: Rodrigue Saldaña on 08-18-2024 Nucleated RBC/100 WBC (Bld) [Ratio] 0 % 0-5 [facility] Platelet countOrdered By: Dwayne Saldaña on 08-18-2024 Platelets (Bld) [#/Vol] 153 10*3/uL 150-450 [facility] Potassium measurementOrdered By: Rodrigue Saldaña on 08-18-2024 Potassium [Moles/Vol] 3.9 mmol/L 3.5-5.1 [facility] RBC Auto (Bld) [#/Vol]Ordere d By: Rodrigue Saldaña on 08-18-2024 RBC (Bld) [#/Vol] 4.43 10*6/uL 4.2-5.4 [facility] Serum anion gap measurementO rdered By: Rodrigue Saldaña on 08-18-2024 Anion gap [Moles/Vol] 8 mmol/L 5-15 [facility] Serum or plasma calcium murali urement (mass/volume)Ordered By: Rodrigue Saldaña on 08-18-2024 Calcium [Mass/Vol] 9.1 mg/dL 8.5-10.1 [facility] Serum or plasma creatinine m easurement (mass/volume)Ordered By: Arenmaryann Saldaña on 08-18-2024 Creatinine [Mass/Vol] 1.25 mg/dL High 0.55-1.02 [facility] Comment on above: The validity of the calculated GFR & GFRAA in patients over 70 years has not been determined. Clinical correlation is essential. Serum or plasma urea nitroge n measurement (mass/volume)Ordered By: Rodrigue Saldaña on 08-18-2024 Urea nitrogen [Mass/Vol] 37 mg/dL High 7-18 [facility] Sodium levelOrdered By: Dwaynejessica jarred Leifjaspreetlexie on 08-18-2024 Sodium [Moles/Vol] 142 mmol/L 136-145 [facility] White blood cell (WBC) count Ordered By: Rodrigue Saldaña on 08-18-2024 WBC (Bld) [#/Vol] 6.1 10*3/uL 4.4-11.0 [facility] Stress Reporton 07-31-2024 Stress Report [facility] [address] [place] [address] MR#: [id number] Acct: [id number] Name: YAA WARD Rep #: [id number] : 1940 84 From: Osvaldo Kuhn MD Primary Care: Dr. Rodrigue Saldaña MD Status: REG [facility] Referring Dr: Osvaldo Kuhn MD Sex: F C Stress Test Report Date: 07/29/2024 Procedure: Pharmacologic stress nuclear imaging study Indications: Chest pain Consent: Per the patient Procedure: The patient underwent pharmacologic (Regadenoson 0.4mg ) evaluation with a peak heart rate of 82 beats per minute (60%predicted maximal heart rate) and a peak blood pressure of 175/75 mmHg. The baseline ECG demonstrated sinus rhythm. The peak pharmacologic ECG demonstrated no ischemic changes. Rare PVC noted. There was no complaint of chest discomfort during pharmacologic infusion or recovery. The patient was injected with 14.1 millicuries of technetium 99m Cardiolite and subsequently rest SPECT Cardiolite nuclear imaging was obtained in the horizontal long, vertical long, and short axis views. The patient underwent pharmacologic (Regadenoson) evaluation. The patient was injected with 43 point millicuries of technetium 99m Cardiolite and subsequently stress SPECT Cardiolite nuclear imaging was obtained in the horizontal long, vertical long, and short axis views. A gated Cardiolite study at peak stress was obtained. The examination was stopped secondary to completion of protocol. Rest and stress SPECT Cardiolite nuclear imaging status post realignment, normalization, and attenuation correction demonstrate no fixed or reversible perfusion defects. There is end systolic thickening and brightening. The gated Cardiolite study demonstrates myocardial thickening and inward wall motion. The reported LVEF is 66%. Impression: 1. Pharmacologic (Regadenoson) evaluation 2. Peak pharmacologic ECG with no ischemic changes. 3. No significant cardiac dysrhythmias noted. 5. Rest and stress SPECT Cardiolite nuclear imaging demonstrate relative uniform tracer uptake and myocardial perfusion appearing within normal limits. 6. The gated Cardiolite study reports an LVEF of 66%. This note was generated with [employer] dictation software. It may contain incorrect words, spelling, and punctuation that were not noted in checking the note before signing. 07/31/24 1233 Date Osvaldo Kuhn MD CC: Dr. Osvaldo Kuhn MD; Dr. Rodrigue Saldaña MD Date Dictated: 07/31/24 1231 Date Transcribed: 07/31/24 123 Machine Setter: SHAUNA Signed Normal [facility] 12 Lead EKG performed by [facility] on 07-21-2024 12 Lead EKG performed by [facility] [address] [place] [address] 12 Lead EKG performed by [facility] 07/21/24 0758 MR#: [id number] Acct: [id number] Name: YAA WARD Rep #: [id number] : 1940 84 From: Osvaldo Kuhn MD Attending Dr: Dr. Osvaldo Kuhn MD Status: DEP AMB Ordering Dr: Osvaldo Kuhn MD Date: 07/21/24 Location: [facility] Sex: F C Admitted: [facility]/12 Lead EKG performed by [facility] ECG Report Interpretation ---Sinus Rhythm - frequent PAC s # PACs = 2.Voltage criteria for LVH (R(I)+S(III) exceeds 2.50 mV) -Voltage criteria w/o ST/T abnormality may be normal. -consider old anterior infarct. ABNORMAL Electronically signed on 10/06/2024 at 11:[address] Osvaldo Kuhn [employer] Version 8610 10/06/24 1110 Date Osvaldo Kuhn MD CC: Dr. Rodrigue Saldaña MD Date Dictated: 07/21/24757 Date Transcribed: 07/21/24757 Machine Setter: SHAUNA Signed Normal [facility] Cardiology Visit Reporton Cardiology Visit Report [facility] [address] [place], [place] [address] OFFICE VISIT Date of Service: 07/21/24 MR#: [id number] Acct: [id number] Name: YAA WARD Rep #: [id number] : 1940 Provider: Dr. Osvaldo Kuhn MD Age/Sex: 84/F Location: [facility] Status: Signed HPI HPI History of Present Illness Details: This lady has past medical history significant for dyslipidemia, obesity, hypertension and Garcia's esophagus. She is here for evaluation of her chest pain. Per patient, she gets left-sided chest discomfort radiating to her jaw intermittently. It is not related to exertion. According to her, it mostly happens after she eats her food. Per her, if she takes antacids, "it relieves it somewhat". No associated shortness of breath. No palpitations. She sleeps in a recliner and is not sure about orthopnea. Denies any paroxysmal nocturnal dyspnea. She has chronic lower extremity edema. Recently an echocardiogram was done for the patient which showed EF of 70% with abnormal relaxation pattern. Pulmonary artery systolic pressure was noted to be 45 to 50 mmHg. No major valvular abnormalities noted. Intake Vital Signs 07/21/24 11:48 Height 5 ft 3 in Weight: 265 lb BMI 46.9 BP 160/80 H Blood Pressure Location Rt brachial Position Sitting Respiration 16 Pulse 67 Pulse Source NIBP Intake Visit Reasons: CP (ALEXIS) [place] Required: No Accompanied by: Caregiver Is patient in pain?: No Allergies clindamycin Allergy (Unknown, Unverified 07/21/24 11:41) Rash/Itching morphine Allergy (Unknown, Unverified 07/21/24 11:41) GI Upset, Vomiting Penicillins Allergy (Unknown, Unverified 07/21/24 11:41) Rash [id number] Reductase Inhibitor Allergy (Unknown, Unverified 07/21/24 11:41) See Note Sulfa (Sulfonamide Antibiotics) Adverse Reaction (Intermediate, Unverified 07/21/24 11:41) thrush oxycodone Adverse Reaction (Mild, Unverified 07/21/24 11:41) Intolerance Medications ???Medication ???Instructions ???Recorded ???Confirmed ???Type handicapped placcard #1 Samples 01/18/23 07/21/24 Sample acetaminophen 500 mg capsule 500 mg PO TID 07/15/24 07/21/24 History aspirin 81 mg tablet,delayed 81 mg PO QDAY 07/15/24 07/21/24 History release cholecalciferol (vitamin D3) 25 25 mcg PO QDAY 07/15/24 07/21/24 History mcg (1,000 unit) capsule docusate sodium 100 mg capsule 100 mg PO BID 07/15/24 07/21/24 History (Colace) docusate sodium 100 mg capsule 100 mg PO BID PRN 07/15/24 07/21/24 History (Colace) fenofibrate micronized 67 mg 134 mg PO QPM 07/15/24 07/21/24 History capsule furosemide 20 mg tablet 20 mg PO QAM 07/15/24 07/21/24 History magnesium hydroxide 400 mg/5 mL 30 ml PO QDAY PRN 07/15/24 07/21/24 History oral suspension (Milk of Magnesia) nitroglycerin 0.4 mg sublingual 0.4 mg sublingual Q5M PRN 07/15/24 07/21/24 History tablet pantoprazole 40 mg tablet,delayed 40 mg PO QHS 07/15/24 07/21/24 History release peg 400-propylene glycol 0.4 %-0.3 1 drp ophthalmic (eye) QDAY PRN 07/15/24 07/21/24 History % eye drops (Systane (propylene glycol)) potassium chloride 20 mEq 40 meq PO QDAY 07/15/24 07/21/24 History tablet,extended release potassium chloride 20 mEq 20 meq PO QPM 07/15/24 07/21/24 History tablet,extended release(part/cryst) pregabalin 100 mg capsule 100 mg PO TID 07/15/24 07/21/24 History sennosides 8.6 mg-docusate sodium 1 tab-cap PO BID PRN 07/15/24 07/21/24 History 50 mg capsule (Senna Plus) sertraline 50 mg tablet 125 mg PO QHS 07/15/24 07/21/24 History triamcinolone acetonide 0.1 % 1 applic topical BID PRN 07/15/24 07/21/24 History topical cream triamcinolone acetonide 0.1 % 1 applic topical BID PRN 07/15/24 07/21/24 History topical cream vibegron 75 mg tablet (Gemtesa) 75 mg PO QDAY 07/15/24 07/21/24 History vit A 300 mcg-C 200 mg-E 27 1 tab PO QDAY 07/15/24 07/21/24 History mg-lutein 2 mg and minerals tablet (I-Lary) Have you fallen in the past year?: No [facility] Medical History Age-related nuclear cataract, unspecified eye Garcia's esophagus with dysplasia, unspecified Colonoscopy planned Constipation, unspecified Depression, unspecified Difficulty in walking, not elsewhere classified Diverticulitis of intestine, part unspecified, without perforation or abscess with bleeding Dry eye syndrome Dry mouth Family history of malignant neoplasm of digestive organs Fibromyalgia Gastro-esophageal reflux disease without esophagitis Heartburn History of falling Hypokalemia Irritable bowel syndrome with constipation Irritant contact dermatitis due to detergent Localized edema Lumbar spinal stenosis Muscle wasting and atrophy, not elsewhere classif (more content not included)... Normal [facility] CNCOon 04-24-2024 CNCO Letter Text Normal [facility] CNOVon 04-24-2024 CNOV Office Visit ([facility] ) YAA WARD ([id number]) 1940 F NFR Date Time Provider Department 04/24/24 11:20 AM DUC PAYAN [facility] During your visit today, we recorded the following information about you: Pulse Blood pressure Weight Height 64/minute 148/92 115.7 kg 1.575 m Duc Payan, JITTERBUG OPERATOR.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 04/24/2024 12:25 PM Signed CHIEF COMPLAINT: Patient presents with: Garcia's Esophagus : Voice change Constipation: Bloating This consult was requested by No ref. provider found for an opinion regarding garcia's esophagus. My final recommendations will be communicated to the requesting health care provider by way of the shared medical record for internal providers or letter via the [employer] for external providers. HPI: Yaa Ward is a 83 year old female with hx of GERD, Garcia's esophagus, fibromyalgia, HLD, HTN, IBS, who presents for Garcia's Esophagus. She denies any GERD, but has had trouble with voice changes (gravelly) and difficulty singing. She lose her voice at times. This has been going on for a couple years, and she feels like it is getting worse. She will sometimes get a sore throat - she will gargle with Scope and it will feel better. (-) dysphagia, abdominal pain, appetite loss Has some bloating and constipation - has a BM once a day. She will drink prune juice and eat veggies. Last EGD was 03/2019: Record Review: [facility] / Outside records reviewed. 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 Huerta No date: Cataract of both eyes No date: Coronary artery disease No date: Depression with anxiety Comment: On Zoloft regularly, on Ativan prn No date: Diverticula of colon No date: Diverticulitis No date: Fibromyalgia No date: GERD (gastroesophageal reflux disease) No date: High blood pressure No date: History of peptic ulcer disease No date: Hx of colonic polyps Comment: Dr. 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 Comment: As a child, joint pain even as a child fallen arches No date: Uterine fibroid No date: UTI (urinary tract infection) No date: Vitamin D deficiency PAST SURGICAL HISTORY No date: APPENDECTOMY 02/09/2012: ARTHRP ACETBLR/PROX FEM PROSTC AGRFT/ALGRFT Comment: Hip replacement, total left 05/25/2005: ARTHRP JOSE CONDYLEANDPLATU MEDIALANDLAT COMPARTMENTS Comment: left total knee arthroplasty 09/10/2014: ARTHRP JOSE CONDYLEANDPLATU MEDIALANDLAT COMPARTMENTS Comment: right knee No date: EXTENSIVE FOOT SURGERY Comment: Right foot bunion, hammer toes bilaterally No date: OOPHORECTOMY PARTIAL/TOTAL UNI/BI Comment: same time as hysterectomy 07/16/2012: PAST SURGICAL HISTORY OF Comment: colonoscopy, follow up in two years according to report 11/22/2023: REMV CATARACT EXTRACAP,INSERT LENS; Right 12/06/2023: REMV CATARACT EXTRACAP,INSERT LENS; Left 09/10/1943: TONSILLECTOMY HX 09/10/1990: TOTAL ABDOMINAL HYSTERECT W/WO RMVL TUBE OVARY Comment: dysfunctional uterine bleeding Allergies: ALLERGIES Allergen Reactions Ahptgxu-Cqa-Tuk Red* Other: See Comments Lethargic, and muscle and joint pain Clindamycin Rash, Itching Morphine GI Upset, Vomiting Penicillins Rash Percocet [Oxycodone* Intolerance Sulfa (Sulfonamide * Other: See Comments thrush Medications: hydroCHLOROthiazide 50 mg tablet sertraline (ZOLOFT) 50 mg tablet aspirin, enteric coated (ASPIRIN, ENTERIC COATED) 81 mg EC tablet Take 81 mg by mouth once daily. Fenofibrate 150 mg cap Take 150 mg by mouth daily at bedtime. potassium chloride ER (KLOR-CON) 20 mEq tablet Take 40 mEq by mouth once daily. magnesium hydroxide (MILK OF MAGNESIA ORAL) Take by mouth. sennosides (SENNA ORAL) Take by mouth. propylene glycol/peg 400/PF (SYSTANE, PF, OPHTHALMIC) Use in eyes. pregabalin (LYRICA) 100 mg capsule Take 100 mg by mouth three times a day. vibegron (GEMTESA) 75 mg tablet Take 1 tablet by mouth once daily. vit C,E-Wn-nqbnf-lutein-ayesha zack (PRESERVISION AREDS-2) 250-90-40-1 mg Take by mouth. acetaminophen (TYLENOL) 325 mg tablet Take 2 tablets by mouth every 8 hours as needed for pain. pantoprazole DR (PROTONIX) 40 mg tablet TAKE ONE TABLET BY MOUTH ONCE A DAY docusate sodium (COLACE) 100 mg capsule Take 1 capsule by mouth twice daily. Cholecalciferol, Vitamin D3, (VITAMIN D) 1,000 unit Tab Take 2,000 Units by mouth once daily. furosemide (LASIX) 20 mg tablet (Patient not taking: Reported on 04/24/2024) nitroglycerin sublingual (NITROQUICK) 0.4 mg SL tablet (Patient not taking: Reported on 04/24/2024) metoprolol succinate ER (TOPROL XL) 25 mg 24 hr tablet Take 12.5 m (more content not included)... [facility] CNOVon 03-11-2024 CNOV Office Visit (FAMPTW ) YAA WARD ([id number]) 1940 F NFR Date Time Provider Department 03/11/24 10:20 AM DELISA ESTRELLA During your visit today, we recorded the following information about you: Pulse Blood pressure Weight Height 67/minute 117/64 115.7 kg 1.575 m DeloresDelisa justice, 03/16/2024 9:28 PM Signed Yaa Ward is a 83 year old female presenting for evaluation Patient is wishing to reestablish care-she recently moved to [facility] Last office visit with me was on 03/01/2021 Pt currently lives at an assisted living facility " [facility]" in [place] where she follows with a 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 and with PCP Dr Saldaña. I have known pt for ~ 30 yrs and she is wishing to reestablish care here as well. Plans to keep Dr Matute as her PCP but would like to see me 1-2 times a yr to discuss her care. She is aware and I agree that I am willing to make recommendations to help coordinate her care with her PCP. S/p cataract surgery in November on 11/21 and 12/[address] Rojas. Previous PCP Dr Ragsdale (in [place]) retired 2 yrs ago New PCP Dr Saldaña at [facility]". States has only met the physician on time. Follows most of the time with 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 Noa at [facility] Services: at her Assisted living facility - Dispense medication. - help Cleaning her apartment - Going to PT 3 days this week. Walking with walker always. -3 meals of carbohydrates and I have gained 50#". The facility serves noodles and mash potatoes together" - persons shop for me -watching [place] on TV. Anxiety/depression Following with psychiatrist Dr. Morales-last seen last week on . Dr Morales advised her to see Janene as he was leaving his practice. Pt is not sure she would like to see Janene. Zoloft 125 mg daily dose. Hypertension/hyperlipid emia No chest pain, no sob Current regimen Metoprolol succinate 12.5 mg one daily. Fenofibrate 150 mg at bedtime. Chronic low back pain Lyrica 100 mg one three times daily History of Baretts esophagus/history of GERD Current regimen Protonix 40 mg daily dose Since in [place] she has not seen a GI as advised that there is no GI provider in [place]. After discussion I did place a call and found [facility] provider [facility] in [place] Phone number: [phone] Rosario Pt aware and will try to schedule an appt. Pt is aware that I did speak with nursing supervisore Saba at [facility]. 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 Huerta Cataract of both eyes Coronary artery disease Depression with anxiety On Zoloft regularly, on Ativan prn Diverticula of colon Fibromyalgia GERD (gastroesophageal reflux disease) High blood pressure History of peptic ulcer disease Hx of colonic polyps Dr. Huerta Hypercholesterolemia Lumbar spinal stenosis Obesity Osteoarthritis Rheumatic fever without heart involvement As a child, joint pain even as a child fallen arches Uterine fibroid UTI (urinary tract infection) Vitamin D deficiency PAST SURGICAL HISTORY Procedure Laterality Date APPENDECTOMY ARTHRP ACETBLR/PROX FEM PROSTC AGRFT/ALGRFT 02/09/2012 Hip replacement, total left ARTHRP KNE CONDYLEANDPLATU MEDIALANDLAT COMPARTMENTS 05/25/2005 left total knee arthroplasty ARTHRP KNE CONDYLEANDPLATU MEDIALANDLAT COMPARTMENTS 09/10/2014 right knee EXTENSIVE FOOT SURGERY Right foot bunion, hammer toes bilaterally OOPHORECTOMY PARTIAL/TOTAL UNI/BI same time as hysterectomy PAST SURGICAL HISTORY OF 07/16/2012 colonoscopy, follow up in two years according to report REMV CATARACT EXTRACAP,INSERT LENS Right 11/22/2023 REMV CATARACT EXTRACAP,INSERT LENS Left 12/06/2023 TONSILLECTOMY HX 09/10/1943 TOTAL ABDOMINAL HYSTERECT W/WO RMVL TUBE OVARY 09/10/1990 dysfunctional uterine bleeding FAMILY HISTORY Problem Relation Age of Onset Glaucoma Father Arthritis Father Macular Degen Father Colon Cancer Father Ischemic Heart Disease Father other (Other) Father Glaucoma Mother Arthritis Mother was in bed for 6 years Macular Degen Mother Colon Cancer Mother Strabismus Other cousin Macular Degen Maternal Aunt Macular Degen Paternal Aunt Social History Tobacco Use Smoking status: Never Smokeless tobacco: Never Tobacco comments: (more content not included)... [facility] CNPAnnette 03-11-2024 CNPN Telephone (IschemixPTW) MONIE WARDEN ([id number]) 1940 F NFR Date Time Provider Department 03/11/24 DELISA ESTRELLA FAMPTW During your visit today, we recorded the following information about you: Ariela Saenz 03/11/2024 10:12 AM Signed Saba with [facility] is calling Delisa Estrella DO today with concern regarding appointment today. Patient lives in a facility right now and the transcription manager of the facility is calling and states that patient has a physician at the facility. Patient is coming in for an appointment and when patient was confronted about the appointment and not being able to have two PCP'S patient states "I am going to see a friend". If patient is wanting to establish care patient did not bring any information Patient has been identified by name and birthdate. Duration of symptoms: N/A Any questions, please call [phone] Closing statement: Results or non-symptom based questions: Thank you for calling [facility], your call will be returned within the next business day. Delisa Interiano DO 03/12/2024 2:16 PM Signed Spoke to Saba yesterday. Pt agrees Dr Saldaña will remain her PCP but plans to come her on occasion as she has seen me for the past 30 yrs. She is aware that Dr Saldaña will manage her care and I can make suggestions re: care with Dr Saldaña it she wishes. Delisa Estrella DO Allergies As of Date: 03/11/2024 Noted Allergy Reaction HUGFGWE-OYT-VPS REDUCTASE INHIBIT*01/23/2012 14 - Other: See Comments Comments: Lethargic, and muscle and joint pain CLINDAMYCIN 01/17/2012 2 - Rash 9 - Itching MORPHINE 06/11/2012 8 - GI Upset 11 - Vomiting PENICILLINS 02/22/2004 2 - Rash PERCOCET (OXYCODONE-ACETAMINOPHE N)01/17/2016 5 - Intolerance SULFA (SULFONAMIDE ANTIBIOTICS) 02/22/2004 14 - Other: See Comments Comments: thrush Date Reviewed: 03/11/2024 Reviewed by: Loretta Urbano MA - Fully Assessed Reason for Visit: appointment today [Other] Prescriptions as of 03/12/2024 - Fenofibrate 150 mg cap Take 150 mg by mouth daily at bedtime. - potassium chloride ER (KLOR-CON) 20 mEq tablet Take 40 mEq by mouth once daily. - metoprolol succinate ER (TOPROL XL) 25 mg 24 hr tablet Take 12.5 mg by mouth once daily. - triamcinolone acetonide (KENALOG) 0.1 % cream Apply to affected area. - magnesium hydroxide (MILK OF MAGNESIA ORAL) Take by mouth. - sennosides (SENNA ORAL) Take by mouth. - propylene glycol/peg 400/PF (SYSTANE, PF, OPHTHALMIC) Use in eyes. - hydroCHLOROthiazide 25 mg tablet Take 50 mg by mouth once daily. - pregabalin (LYRICA) 100 mg capsule Take 100 mg by mouth three times a day. - vibegron (GEMTESA) 75 mg tablet Take 1 tablet by mouth once daily. - vit C,M-Vu-ldhcu-lutein-ayesha zack (PRESERVISION AREDS-2) 250-90-40-1 mg Take by mouth. - hydroCHLOROthiazide 25 mg tablet - nystatin (MYCOSTATIN) powder Apply 1 application to affected area twice daily. - acetaminophen (TYLENOL) 325 mg tablet Take 2 tablets by mouth every 8 hours as needed for pain. - pantoprazole DR (PROTONIX) 40 mg tablet TAKE ONE TABLET BY MOUTH ONCE A DAY - Fluticasone Propionate (CUTIVATE) 0.05 % cream Apply to affected area as needed. Apply as directed to affected area twice daily - hydrOXYzine HCl (ATARAX) 10 mg tablet Take 1 tablet by mouth three times daily as needed for anxiety. - aspirin-caffeine (BACK AND BODY PAIN RELIEVER) 500-32.5 mg tab Take by mouth every 6 hours as needed. - sertraline (ZOLOFT) 100 mg tablet Take 1 tablet by mouth once daily. - ezetimibe (ZETIA) 10 mg tablet Take 1 tablet by mouth once daily. - metoprolol succinate ER (TOPROL XL) 50 mg 24 hr tablet Take 1 tablet by mouth once daily. - potassium chloride (KLOR-CON 10) 10 mEq tablet Take 1 tablet by mouth twice daily. - docusate sodium (COLACE) 100 mg capsule Take 1 capsule by mouth twice daily. - Cholecalciferol, Vitamin D3, (VITAMIN D) 1,000 unit Tab Take 2,000 Units by mouth once daily. - [place]-3 Fatty Acids-Vitamin E (FISH OIL) 1,000 mg cap Take 1 capsule by mouth once daily. - LUTEIN ORAL Take by mouth. Problem List As Of Date 03/11/2024 Noted Resolved Other symptoms referable to lower leg joint [R2*01/16/2005 02/17/2021 GENERAL OSTEOARTHROSIS [M15.9] 01/16/2005 HTN (hypertension) [I10] 01/17/2012 02/17/2021 Coronary artery disease [I25.10] 01/17/2012 02/17/2021 Hypercholesterolemia [E78.00] 01/17/2012 High blood pressure [I10] GERD (gastroesophageal reflux disease) [K21.9] Hx of colonic polyps [Z86.010] Macular degeneration [H35.30] Lumbago [M54.50] 03/25/2012 02/17/2021 Lumbosacral spondylosis without myelopathy [M47*03/25/2012 Degeneration of lumbar or lumbosacral intervert*03/25/2012 Lumbar radicular pain [M54.16] 03/25/2012 Lumbar stenosis [M48.061] 03/25/2012 02/17/2021 Cervicalgia [M54.2] 03/25/2012 02/17/2021 Cervical spondyl (more content not included)... [facility] CNPAnnette 12-17-2023 CNPN Telephone (FAMPTW) YAA WARD ([id number]) 1940 F NFR Date Time Provider Department 12/17/23 DELISA ESTRELLA During your visit today, we recorded the following information about you: Reena Grigsby 12/17/2023 3:38 PM Signed Yaa is calling Delisa Estrella DO today with concern regarding Appointment. She stated she has always been a patient for years, then she moved to assisted living and they told her she had to see the doctor's there. However, she wants Dr. Chan to be her PCP again. In addition, she wants a physical soon; advised patient that Medicare does not pay for physicals and she said she will pay for it herself/. Please ask Dr. Estrella and call her back. Patient has been identified by name and birthdate. Duration of symptoms: N/A Person calling: self Call patient at: at home [phone] (home) [phone] (cell) Was an appointment scheduled: No Closing statement: Results or non-symptom based questions: Thank you for calling [facility], your call will be returned within the next business day. Mary Lou Prince MA 12/17/2023 3:46 PM Signed Please see message below and advise. Kay Cummins 12/19/2023 12:[address] Estrella advised she would accept patient back to re-establish care. Tried to reach patient at both numbers listed in Epic. Was connected with [facility] and advised that we need to contact Ariadna at [phone], who handles all patient scheduling and transport. Called number above and was unable to leave message. Will follow up to offer patient appointment on 02/07/2024 at 12:[address] Estrella. Kay Cummins 12/20/2023 8:43 AM Signed Patient called back and is scheduled on 03/11/24. Allergies As of Date: 12/17/2023 Noted Allergy Reaction DSRLYIC-ENA-YWO REDUCTASE INHIBIT*01/23/2012 14 - Other: See Comments Comments: Lethargic, and muscle and joint pain CLINDAMYCIN 01/17/2012 2 - Rash 9 - Itching MORPHINE 06/11/2012 8 - GI Upset 11 - Vomiting PENICILLINS 02/22/2004 2 - Rash PERCOCET (OXYCODONE-ACETAMINOPHE N)01/17/2016 5 - Intolerance SULFA (SULFONAMIDE ANTIBIOTICS) 02/22/2004 14 - Other: See Comments Comments: thrush Date Reviewed: 12/07/2023 Reviewed by: Vinod Rojas MD - Fully Assessed Reason for Visit: Appointment [186] Cmt: Previous patient Prescriptions as of 12/20/2023 - prednisoLONE acetate (PRED FORTE) 1 % ophthalmic suspension Use 1 Drop in the left eye four times daily for 21 days. Start after cataract surgery - hydroCHLOROthiazide 25 mg tablet Take 25 mg by mouth once daily. - pregabalin (LYRICA) 100 mg capsule Take 100 mg by mouth three times a day. - vibegron (GEMTESA) 75 mg tablet Take 1 tablet by mouth once daily. - vit C,H-Dt-wvrig-lutein-ayesha zack (PRESERVISION AREDS-2) 250-90-40-1 mg Take by mouth. - hydroCHLOROthiazide 25 mg tablet - nystatin (MYCOSTATIN) powder Apply 1 application to affected area twice daily. - acetaminophen (TYLENOL) 325 mg tablet Take 2 tablets by mouth every 8 hours as needed for pain. - pantoprazole DR (PROTONIX) 40 mg tablet TAKE ONE TABLET BY MOUTH ONCE A DAY - Fluticasone Propionate (CUTIVATE) 0.05 % cream Apply to affected area as needed. Apply as directed to affected area twice daily - hydrOXYzine HCl (ATARAX) 10 mg tablet Take 1 tablet by mouth three times daily as needed for anxiety. - aspirin-caffeine (BACK AND BODY PAIN RELIEVER) 500-32.5 mg tab Take by mouth every 6 hours as needed. - sertraline (ZOLOFT) 100 mg tablet Take 1 tablet by mouth once daily. - ezetimibe (ZETIA) 10 mg tablet Take 1 tablet by mouth once daily. - metoprolol succinate ER (TOPROL XL) 50 mg 24 hr tablet Take 1 tablet by mouth once daily. - potassium chloride (KLOR-CON 10) 10 mEq tablet Take 1 tablet by mouth twice daily. - docusate sodium (COLACE) 100 mg capsule Take 1 capsule by mouth twice daily. - Cholecalciferol, Vitamin D3, (VITAMIN D) 1,000 unit Tab Take 2,000 Units by mouth once daily. - [place]-3 Fatty Acids-Vitamin E (FISH OIL) 1,000 mg cap Take 1 capsule by mouth once daily. - LUTEIN ORAL Take by mouth. Problem List As Of Date 12/17/2023 Noted Resolved Other symptoms referable to lower leg joint [R2*01/16/2005 02/17/2021 GENERAL OSTEOARTHROSIS [M15.9] 01/16/2005 HTN (hypertension) [I10] 01/17/2012 02/17/2021 Coronary artery disease [I25.10] 01/17/2012 02/17/2021 Hypercholesterolemia [E78.00] 01/17/2012 High blood pressure [I10] GERD (gastroesophageal reflux disease) [K21.9] Hx of colonic polyps [Z86.010] Macular degeneration [H35.30] Lumbago [M54.50] 03/25/2012 02/17/2021 Lumbosacral spondylosis without myelopathy [M47*03/25/2012 Degeneration of lumbar or lumbosacral intervert*03/25/2012 Lumbar radicular pain [M54.16] 03/25/2012 Lumbar stenosis [M48.061] 03/25/2012 02/17/2021 Cervicalgia (more content not included)... [facility] ANES POSTPROC EVALon 024 ANES POSTPROC EVAL HNO ID: [id number] Author: AMAN MCCALLUM MD Service: ? Author Type: Anesthesiologist Type: Anesthesia Postprocedure Evaluation Filed: 12/06/2023 11:16 Note Text: POST ANESTHESIA EVALUATION NOTE : 1940 Procedure Summary Date: 12/06/23 Room / Location: [place] [address] / [facility] Anesthesia Start: 821 Anesthesia Stop: 841 Procedures: PHACOEMULSIFICATION CATARACT IMPLANT INTRAOCULAR LENS W/O ENDOSCOPIC CYCLOPHOTOCOAGULATION (Left: Eye) OPHTHALMIC BIOMETRY BY PARTIAL COHERENCE INTERFEROMETRY W/INTRAOCULAR LENS POWER CALCULATION (Left: Eye) Diagnosis: Nuclear senile cataract of both eyes (Nuclear senile cataract of both eyes [H25.13]) Surgeons: Vinod Rojas MD Responsible Provider: Aman Mccallum MD Anesthesia Type: MAC ASA Status: 3 Anesthesia Type: MAC Last Vitals Vitals Value Taken Time BP 149/58 12/06/23 0852 Temp 36.4 ?C (97.6 ?F) 12/06/23 0842 Pulse 66 12/06/23 0853 Resp 14 12/06/23 0852 SpO2 95 % 12/06/23 0853 Vitals shown include unfiled device data. Post Anesthesia Patient Status Patient Evaluation: bedside. Anticipated Disposition: phase 2 then home. Neurological Status: aware and responsive. Pulmonary Status: breathing comfortably on room air Airway Control: returned to baseline unsupported. Cardiovascular Status: stable. Pain Management: satisfactory to patient - multimodal analgesia pain management approach Postoperative Hydration: acceptable. Intraoperative Events: no significant anesthesia events Post Operative Nausea/Vomiting Status: no significant post operative nausea or vomiting Recommendation: continue current plan of care. Anesthesia Observations No Documentation SIGNATURE: Aman Mccallum MD PATIENT NAME: Yaa Ward DATE: December 06, 2023 TIME: 11:16 AM CSN: [id number] [facility] ANES PRE-OPon 12-06-2023 ANES PRE-OP HNO ID: [id number] Author: AMAN MCCALLUM MD Service: ? Author Type: Anesthesiologist Type: Anesthesia Preprocedure Evaluation Filed: 12/06/2023 08:12 Note Text: ANESTHESIOLOGY DAY OF SURGERY NOTE : 1940 Procedure Information Date/Time: 12/06/23 0845 Procedures: PHACOEMULSIFICATION CATARACT IMPLANT INTRAOCULAR LENS W/O ENDOSCOPIC CYCLOPHOTOCOAGULATION (Left: Eye) OPHTHALMIC BIOMETRY BY PARTIAL COHERENCE INTERFEROMETRY W/INTRAOCULAR LENS POWER CALCULATION (Left: Eye) Location: [place] [address] / [facility] Surgeons: Vinod Rojas MD Estimated body mass index is 38.98 kg/m? as calculated from the following: Height as of 05/16/21: 160 cm (5' 2.99"). Weight as of 05/16/21: 99.8 kg (220 lb). Most recent hematocrit and potassium results: Hematocrit 44.2 06/06/2021 Potassium, POC 4.2 06/06/2021 Relevant Problems CARDIO (+) Hemorrhoids (+) High blood pressure GI (+) GERD (gastroesophageal reflux disease) NEURO-PSYCH (+) Hx of colonic polyps I - PHYSICAL EVALUATION AIRWAY Patient intubated: No. Tracheostomy tube not present Mallampati: II. TM distance: >3 FB. Neck ROM: full ROM without neurological symptoms. Mouth opening: adequate. Short neck: no. Thick neck: no DENTAL Dental findings: missing tooth/teeth. II - ANESTHESIA PLAN ASA Score: 3 Anesthetic Plan: MAC NPO Status: adequate Beta Ayaka Monitoring Plan Monitoring plan: standard ASA. Post Procedure Analgesic Plan Postoperative analgesic plan: multimodal analgesia. Informed Consent Anesthetic risks, benefits, alternatives, personnel and consent discussed: yes. Patient / Responsible Republican agrees to proceed: yes Patient / Surrogate agrees to blood products: blood products not planned Significant changes in the patient condition since the History and Physical, not otherwise documented in primary service progress note: no. Potential Anesthesia issues that may suggest increased risk of complications or contraindication to planned procedure: none. Vitals Value Taken Time BP Pulse Resp Temp 36.4 ?C (97.6 ?F) 12/06/23 0811 SpO2 Facility-Administered Medications as of 12/06/2023 Medication Dose Route Frequency - lactated ringers iv infusion 30 mL/hr INTRAVENOUS CONTINUOUS - lidocaine 4% 1 Drop ophthalmic solution (XYLOCAINE) 1 Drop LEFT EYE q 5 MIN - tropicamide 0.5% - cyclopentolate 0.5% - PHENYLephrine 2.5% ophthalmic syringe 1 Drop LEFT EYE q 5 MIN - acetaminophen 650 mg tab(s) (TYLENOL) 650 mg ORAL ONCE - [COMPLETED] lidocaine 4% 1 Drop ophthalmic solution (XYLOCAINE) 1 Drop RIGHT EYE q 5 MIN - [COMPLETED] tropicamide 0.5% - cyclopentolate 0.5% - PHENYLephrine 2.5% ophthalmic syringe 1 Drop RIGHT EYE q 5 MIN Outpatient Medications as of 12/06/2023 Medication Sig - hydroCHLOROthiazide 25 mg tablet Take 25 mg by mouth once daily. - pregabalin (LYRICA) 100 mg capsule Take 100 mg by mouth three times a day. - vibegron (GEMTESA) 75 mg tablet Take 1 tablet by mouth once daily. - vit C,E-Ke-usuzk-lutein-ayesha zack (PRESERVISION AREDS-2) 250-90-40-1 mg Take by mouth. - hydroCHLOROthiazide 25 mg tablet - prednisoLONE acetate (PRED FORTE) 1 % ophthalmic suspension Use 1 Drop in the right eye four times daily for 21 days. Start after cataract surgery - nystatin (MYCOSTATIN) powder Apply 1 application to affected area twice daily. - acetaminophen (TYLENOL) 325 mg tablet Take 2 tablets by mouth every 8 hours as needed for pain. - pantoprazole DR (PROTONIX) 40 mg tablet TAKE ONE TABLET BY MOUTH ONCE A DAY - Fluticasone Propionate (CUTIVATE) 0.05 % cream Apply to affected area as needed. Apply as directed to affected area twice daily - hydrOXYzine HCl (ATARAX) 10 mg tablet Take 1 tablet by mouth three times daily as needed for anxiety. - aspirin-caffeine (BACK AND BODY PAIN RELIEVER) 500-32.5 mg tab Take by mouth every 6 hours as needed. - sertraline (ZOLOFT) 100 mg tablet Take 1 tablet by mouth once daily. - ezetimibe (ZETIA) 10 mg tablet Take 1 tablet by mouth once daily. - metoprolol succinate ER (TOPROL XL) 50 mg 24 hr tablet Take 1 tablet by mouth once daily. - potassium chloride (KLOR-CON 10) 10 mEq tablet Take 1 tablet by mouth twice daily. - docusate sodium (COLACE) 100 mg capsule Take 1 capsule by mouth twice daily. - Cholecalciferol, Vitamin D3, (VITAMIN D) 1,000 unit Tab Take 2,000 Units by mouth once daily. - [place]-3 Fatty Acids-Vitamin E (FISH OIL) 1,000 mg cap Take 1 capsule by mouth once daily. - LUTEIN ORAL Take by mouth. I have interviewed and examined the patient. I have reviewed the medical record and/or the pre-anesthesia evaluation, pertinent labs, and test results. This contains updated information obtained within 48 hours of Surgery/Procedure. SIGNATURE: Aman Mccallum MD PATIENT NAME: Yaa Ward DATE: December 06, 2023 TIME: 8:11 AM CSN: [id number] [facility] OPERATIVE NOon 12-06-2023 OPERATIVE NO HNO ID: [id number] Author: VINOD ROJAS MD Service: Ophthalmology Author Type: Physician Type: Operative Report Filed: 12/06/2023 08:45 Note Text: [facility] OPERATIVE REPORT Log ID: [id number] Surgery/Procedure Date: 12/06/2023 Name: Yaa [facility] #: [id number] Age: [age] year old Surgeon(s)/Proceduralis t(s) and Pen Maker(s): Surgeon(s) and Role: * Vinod Rojas MD - Primary Anesthesia: Monitored Anesthesia Care Operations: Cataract Surgery with intraocular implant Left eye Preoperative Diagnosis: Nuclear Sclerotic Cataract Left eye Postoperative Diagnosis: Nuclear Sclerotic Cataract Left eye Operative Indications: The patient is a 83 year old female with decreased visual acuity Left eye. After detailed discussion of the risks, benefits, and alternatives of cataract surgery, the patient wishes to proceed. Best corrected visual acuity hand motion and trouble reading. Operative Findings: Cataract Operative Procedure: Patient was brought into the operating room, placed supine on the table, given 4% topical Lidocaine, prepped and draped in usual sterile fashion with the plastic drape to keep the lashes off the field. A temporal approach was taken. A paracentesis port was created temporally, through which a 0.5 mL of 1% preservative- free Xylocaine was instilled followed by viscoat and then provisc. A 2.4 mm keratome created a clear corneal tunnel incision in the anterior chamber. A continuous tear capsulorhexis was performed using Utrata foreceps. Balanced salt solution was used to hydrodissect. Phacoemulsification was done using a nuclear cracking technique. Irrigation and aspiration of residual cortical material was done. The posterior capsule was polished. The intraocular lens implant listed below was placed in the bag using a monarch injector. Implant Name Type Inv. Item Serial No. Lithographer Helper Lot No. LRB No. Used Action Model No. CCA0T0.225 [facility] [employer] - [id number] Intraocular Lens CCA0T0.225 [facility] [employer] [id number] [employer] Left 1 Implanted CCA0T0.225 Residual viscoelastic was removed using the irrigation/aspiration handpiece. Balanced salt solution was used to hydrate the wound. 0.1ml of moxifloxacin was given intracameral .The eye felt normotensive. The patient left the operating room in good condition without any complications. Participation: I performed the entire procedure. Incision/Procedure Start Time: 8:29 AM Incision Close/Procedure End Time: 8:39 AM Estimated Blood Loss: 0 ml Specimens: none Implants: refer to operative procedure above Drains: none Complications: none Signature: Vinod Rojas MD Date: December 06, 2023 Time: 8:[address] [facility] Laboratory - Chemistry and C hemistry - challengeOrdered By: Rodrigue Saldaña on 12-05-2023 Cobalamin (Vitamin B12) [Mass/Vol] 1190 pg/mL 211-911 [facility] ANES POSTPROC EVALon 024 ANES POSTPROC EVAL HNO ID: [id number] Author: AMAN MCCALLUM MD Service: ? Author Type: Anesthesiologist Type: Anesthesia Postprocedure Evaluation Filed: 11/22/2023 14:45 Note Text: POST ANESTHESIA EVALUATION NOTE : 1940 Procedure Summary Date: 11/22/23 Room / Location: [address] Anesthesia Start: 1159 Anesthesia Stop: 1236 Procedures: PHACOEMULSIFICATION CATARACT IMPLANT INTRAOCULAR LENS W/O ENDOSCOPIC CYCLOPHOTOCOAGULATION (Right: Eye) OPHTHALMIC BIOMETRY BY PARTIAL COHERENCE INTERFEROMETRY W/INTRAOCULAR LENS POWER CALCULATION (Right: Eye) Diagnosis: Nuclear senile cataract of both eyes (Nuclear senile cataract of both eyes [H25.13]) Surgeons: Vinod Rojas MD Responsible Provider: Aman Mccallum MD Anesthesia Type: MAC ASA Status: 3 Anesthesia Type: MAC Last Vitals Vitals Value Taken Time BP 153/64 11/22/23 1300 Temp 36.1 ?C (97 ?F) 11/22/23 1235 Pulse 66 11/22/23 1300 Resp 18 11/22/23 1300 SpO2 94 % 11/22/23 1300 Post Anesthesia Patient Status Patient Evaluation: bedside. Anticipated Disposition: phase 2 then home. Neurological Status: aware and responsive. Pulmonary Status: breathing comfortably on room air Airway Control: returned to baseline unsupported. Cardiovascular Status: stable. Pain Management: satisfactory to patient - multimodal analgesia pain management approach Postoperative Hydration: acceptable. Intraoperative Events: no significant anesthesia events Post Operative Nausea/Vomiting Status: no significant post operative nausea or vomiting Recommendation: continue current plan of care. Anesthesia Observations No notable events were associated with this procedure. Documented by Anders Krishnan APRN.S[employer]IN [employer] HELPER 11/22/2023 12:38 PM EDT SIGNATURE: Aman Mccallum MD PATIENT NAME: Yaa Ward DATE: November 22, 2023 TIME: 2:45 PM CSN: [id number] Normal [facility] ANES PRE-OPon 11-22-2023 ANES PRE-OP HNO ID: [id number] Author: AMAN MCCALLUM MD Service: ? Author Type: Anesthesiologist Type: Anesthesia Preprocedure Evaluation Filed: 11/22/2023 11:46 Note Text: ANESTHESIOLOGY DAY OF SURGERY NOTE : 1940 Procedure Information Date/Time: 11/22/23 1131 Procedures: PHACOEMULSIFICATION CATARACT IMPLANT INTRAOCULAR LENS W/O ENDOSCOPIC CYCLOPHOTOCOAGULATION (Right: Eye) OPHTHALMIC BIOMETRY BY PARTIAL COHERENCE INTERFEROMETRY W/INTRAOCULAR LENS POWER CALCULATION (Right: Eye) Location: [place] [address] / [facility] Surgeons: Vinod Rojas MD Estimated body mass index is 38.98 kg/m? as calculated from the following: Height as of 05/16/21: 160 cm (5' 2.99"). Weight as of 05/16/21: 99.8 kg (220 lb). Most recent hematocrit and potassium results: Hematocrit 44.2 06/06/2021 Potassium, POC 4.2 06/06/2021 Relevant Problems CARDIO (+) Hemorrhoids (+) High blood pressure GI (+) GERD (gastroesophageal reflux disease) NEURO-PSYCH (+) Hx of colonic polyps I - PHYSICAL EVALUATION AIRWAY Patient intubated: No. Tracheostomy tube not present Mallampati: II. TM distance: >3 FB. Neck ROM: full ROM without neurological symptoms. Mouth opening: adequate. Short neck: no. Thick neck: no DENTAL Dental findings: missing tooth/teeth. II - ANESTHESIA PLAN ASA Score: 3 Anesthetic Plan: MAC NPO Status: adequate Beta Ayaka Monitoring Plan Monitoring plan: standard ASA. Post Procedure Analgesic Plan Postoperative analgesic plan: multimodal analgesia. Informed Consent Anesthetic risks, benefits, alternatives, personnel and consent discussed: yes. Patient / Responsible Republican agrees to proceed: yes Patient / Surrogate agrees to blood products: blood products not planned Significant changes in the patient condition since the History and Physical, not otherwise documented in primary service progress note: no. Potential Anesthesia issues that may suggest increased risk of complications or contraindication to planned procedure: none. Vitals Value Taken Time BP 190/98 11/22/23 1055 Pulse 67 11/22/23 1055 Resp 18 11/22/23 1055 Temp 36.3 ?C (97.3 ?F) 11/22/23 1055 SpO2 97 % 11/22/23 1055 Facility-Administered Medications as of 11/22/2023 Medication Dose Route Frequency - lactated ringers iv infusion 30 mL/hr INTRAVENOUS CONTINUOUS - [COMPLETED] lidocaine 4% 1 Drop ophthalmic solution (XYLOCAINE) 1 Drop RIGHT EYE q 5 MIN - [COMPLETED] tropicamide 0.5% - cyclopentolate 0.5% - PHENYLephrine 2.5% ophthalmic syringe 1 Drop RIGHT EYE q 5 MIN - acetaminophen 650 mg tab(s) (TYLENOL) 650 mg ORAL ONCE Outpatient Medications as of 11/22/2023 Medication Sig - hydroCHLOROthiazide 25 mg tablet Take 25 mg by mouth once daily. - pregabalin (LYRICA) 100 mg capsule Take 100 mg by mouth three times a day. - vibegron (GEMTESA) 75 mg tablet Take 1 tablet by mouth once daily. - vit C,I-Ld-qouxe-lutein-ayesha zack (PRESERVISION AREDS-2) 250-90-40-1 mg Take by mouth. - hydroCHLOROthiazide 25 mg tablet - acetaminophen (TYLENOL) 325 mg tablet Take 2 tablets by mouth every 8 hours as needed for pain. - metoprolol succinate ER (TOPROL XL) 50 mg 24 hr tablet Take 1 tablet by mouth once daily. - potassium chloride (KLOR-CON 10) 10 mEq tablet Take 1 tablet by mouth twice daily. - docusate sodium (COLACE) 100 mg capsule Take 1 capsule by mouth twice daily. - Cholecalciferol, Vitamin D3, (VITAMIN D) 1,000 unit Tab Take 2,000 Units by mouth once daily. - prednisoLONE acetate (PRED FORTE) 1 % ophthalmic suspension Use 1 Drop in the right eye four times daily for 21 days. Start after cataract surgery - nystatin (MYCOSTATIN) powder Apply 1 application to affected area twice daily. - pantoprazole DR (PROTONIX) 40 mg tablet TAKE ONE TABLET BY MOUTH ONCE A DAY - Fluticasone Propionate (CUTIVATE) 0.05 % cream Apply to affected area as needed. Apply as directed to affected area twice daily - hydrOXYzine HCl (ATARAX) 10 mg tablet Take 1 tablet by mouth three times daily as needed for anxiety. - aspirin-caffeine (BACK AND BODY PAIN RELIEVER) 500-32.5 mg tab Take by mouth every 6 hours as needed. - sertraline (ZOLOFT) 100 mg tablet Take 1 tablet by mouth once daily. - ezetimibe (ZETIA) 10 mg tablet Take 1 tablet by mouth once daily. - [place]-3 Fatty Acids-Vitamin E (FISH OIL) 1,000 mg cap Take 1 capsule by mouth once daily. - LUTEIN ORAL Take by mouth. I have interviewed and examined the patient. I have reviewed the medical record and/or the pre-anesthesia evaluation, pertinent labs, and test results. This contains updated information obtained within 48 hours of Surgery/Procedure. SIGNATURE: Aman Mccallum MD PATIENT NAME: Yaa Ward DATE: November 22, 2023 TIME: 11:46 AM CSN: [id number] Normal [facility] PRE-OP HNO ID: [id number] Author: AMAN MCCALLUM MD Service: ? Author Type: Anesthesiologist Type: Anesthesia Preprocedure Evaluation Filed: 11/22/2023 11:24 Note Text: ANESTHESIOLOGY DAY OF SURGERY NOTE : 1940 Procedure Information Date/Time: 11/22/23 1131 Procedures: PHACOEMULSIFICATION CATARACT IMPLANT INTRAOCULAR LENS W/O ENDOSCOPIC CYCLOPHOTOCOAGULATION (Right: Eye) OPHTHALMIC BIOMETRY BY PARTIAL COHERENCE INTERFEROMETRY W/INTRAOCULAR LENS POWER CALCULATION (Right: Eye) Location: [place] [address] / [facility] Surgeons: Vinod Rojas MD Estimated body mass index is 38.98 kg/m? as calculated from the following: Height as of 05/16/21: 160 cm (5' 2.99"). Weight as of 05/16/21: 99.8 kg (220 lb). Most recent hematocrit and potassium results: Hematocrit 44.2 06/06/2021 Potassium, POC 4.2 06/06/2021 Relevant Problems CARDIO (+) Hemorrhoids (+) High blood pressure GI (+) GERD (gastroesophageal reflux disease) NEURO-PSYCH (+) Hx of colonic polyps I - PHYSICAL EVALUATION AIRWAY Patient intubated: No. Tracheostomy tube not present Mallampati: II. TM distance: >3 FB. Neck ROM: full ROM without neurological symptoms. Mouth opening: adequate. Short neck: no. Thick neck: no II - ANESTHESIA PLAN ASA Score: 3 Anesthetic Plan: MAC NPO Status: adequate Beta Ayaka Monitoring Plan Monitoring plan: standard ASA. Post Procedure Analgesic Plan Postoperative analgesic plan: multimodal analgesia. Informed Consent Anesthetic risks, benefits, alternatives, personnel and consent discussed: yes. Patient / Responsible Republican agrees to proceed: yes Patient / Surrogate agrees to blood products: blood products not planned Significant changes in the patient condition since the History and Physical, not otherwise documented in primary service progress note: no. Potential Anesthesia issues that may suggest increased risk of complications or contraindication to planned procedure: none. Vitals Value Taken Time BP 190/98 11/22/23 1055 Pulse 67 11/22/23 1055 Resp 18 11/22/23 1055 Temp 36.3 ?C (97.3 ?F) 11/22/23 1055 SpO2 97 % 11/22/23 1055 Facility-Administered Medications as of 11/22/2023 Medication Dose Route Frequency - lactated ringers iv infusion 30 mL/hr INTRAVENOUS CONTINUOUS - [COMPLETED] lidocaine 4% 1 Drop ophthalmic solution (XYLOCAINE) 1 Drop RIGHT EYE q 5 MIN - [COMPLETED] tropicamide 0.5% - cyclopentolate 0.5% - PHENYLephrine 2.5% ophthalmic syringe 1 Drop RIGHT EYE q 5 MIN - acetaminophen 650 mg tab(s) (TYLENOL) 650 mg ORAL ONCE Outpatient Medications as of 11/22/2023 Medication Sig - hydroCHLOROthiazide 25 mg tablet Take 25 mg by mouth once daily. - pregabalin (LYRICA) 100 mg capsule Take 100 mg by mouth three times a day. - vibegron (GEMTESA) 75 mg tablet Take 1 tablet by mouth once daily. - vit C,B-Ut-hnszz-lutein-ayesha zack (PRESERVISION AREDS-2) 250-90-40-1 mg Take by mouth. - hydroCHLOROthiazide 25 mg tablet - acetaminophen (TYLENOL) 325 mg tablet Take 2 tablets by mouth every 8 hours as needed for pain. - metoprolol succinate ER (TOPROL XL) 50 mg 24 hr tablet Take 1 tablet by mouth once daily. - potassium chloride (KLOR-CON 10) 10 mEq tablet Take 1 tablet by mouth twice daily. - docusate sodium (COLACE) 100 mg capsule Take 1 capsule by mouth twice daily. - Cholecalciferol, Vitamin D3, (VITAMIN D) 1,000 unit Tab Take 2,000 Units by mouth once daily. - prednisoLONE acetate (PRED FORTE) 1 % ophthalmic suspension Use 1 Drop in the right eye four times daily for 21 days. Start after cataract surgery - nystatin (MYCOSTATIN) powder Apply 1 application to affected area twice daily. - pantoprazole DR (PROTONIX) 40 mg tablet TAKE ONE TABLET BY MOUTH ONCE A DAY - Fluticasone Propionate (CUTIVATE) 0.05 % cream Apply to affected area as needed. Apply as directed to affected area twice daily - hydrOXYzine HCl (ATARAX) 10 mg tablet Take 1 tablet by mouth three times daily as needed for anxiety. - aspirin-caffeine (BACK AND BODY PAIN RELIEVER) 500-32.5 mg tab Take by mouth every 6 hours as needed. - sertraline (ZOLOFT) 100 mg tablet Take 1 tablet by mouth once daily. - ezetimibe (ZETIA) 10 mg tablet Take 1 tablet by mouth once daily. - [place]-3 Fatty Acids-Vitamin E (FISH OIL) 1,000 mg cap Take 1 capsule by mouth once daily. - LUTEIN ORAL Take by mouth. I have interviewed and examined the patient. I have reviewed the medical record and/or the pre-anesthesia evaluation, pertinent labs, and test results. This contains updated information obtained within 48 hours of Surgery/Procedure. SIGNATURE: Aman Mccallum MD PATIENT NAME: Yaa Ward DATE: November 22, 2023 TIME: 11:24 AM CSN: [id number] Normal [facility] OPERATIVE NOon 11-22-2023 OPERATIVE NO HNO ID: [id number] Author: VINOD ROJAS MD Service: Ophthalmology Author Type: Physician Type: Operative Report Filed: 11/22/2023 12:35 Note Text: [facility] OPERATIVE REPORT Log ID: [id number] Surgery/Procedure Date: 11/22/2023 Name: [facility] #: [id number] Age: [age] year old Surgeon(s)/Proceduralis t(s) and Pen Maker(s): Surgeon(s) and Role: * Vinod Rojas MD - Primary * Cyndi Farias - Resident - Assisting Anesthesia: Monitored Anesthesia Care Operations: Cataract Surgery with intraocular implant Right eye Preoperative Diagnosis: Nuclear Sclerotic Cataract Right eye Postoperative Diagnosis: Nuclear Sclerotic Cataract Right eye Operative Indications: The patient is a 83 year old female with decreased visual acuity Right eye. After detailed discussion of the risks, benefits, and alternatives of cataract surgery, the patient wishes to proceed. Best corrected visual acuity hand motion and trouble reading. Operative Findings: Cataract Operative Procedure: Patient was brought into the operating room, placed supine on the table, given 4% topical Lidocaine, prepped and draped in usual sterile fashion with the plastic drape to keep the lashes off the field. A temporal approach was taken. A paracentesis port was created temporally, through which a 0.5 mL of 1% preservative- free Xylocaine was instilled followed by viscoat and then provisc. A 2.4 mm keratome created a clear corneal tunnel incision in the anterior chamber. A continuous tear capsulorhexis was performed using Utrata foreceps. Balanced salt solution was used to hydrodissect. Phacoemulsification was done using a nuclear cracking technique. Irrigation and aspiration of residual cortical material was done. The posterior capsule was polished. The intraocular lens implant listed below was placed in the bag using a monarch injector. Implant Name Type Inv. Item Serial No. Lithographer Helper Lot No. LRB No. Used Action Model No. CCA0T0.225 [facility] [employer] - [id number] Intraocular Lens CCA0T0.225 [facility] [employer] [id number] [employer] Right 1 Implanted CCA0T0.225 Residual viscoelastic was removed using the irrigation/aspiration handpiece. Balanced salt solution was used to hydrate the wound. 0.1ml of moxifloxacin was given intracameral .The eye felt normotensive. The patient left the operating room in good condition without any complications. Participation: I performed the entire procedure except for start of the capsulorhexis, implantation of the Intraocular lens, removal of viscoelastic, and wound hydration and antibiotic injection. Incision/Procedure Start Time: 12:08 PM Incision Close/Procedure End Time: 12:30 PM Estimated Blood Loss: 0 ml Specimens: none Implants: refer to operative procedure above Drains: none Complications: none Signature: Vinod Rojas MD Date: November 22, 2023 Time: 12:[address] [facility] Neda 11-20-2023 LIZ Telephone ([facility]) YAA WARD ([id number]) 1940 F NFR Date Time Provider Department 11/20/23 VINOD ROJAS During your visit today, we recorded the following information about you: Patience Lin 11/22/2023 9:33 AM Addendum [facility] where Pt resides asked that any RX or speical instruction and rX orders post op instructions to be faxed to them at [phone] to her floor which is [facility]: (To contact the nurse ph no is ) Allergies As of Date: 11/20/2023 Noted Allergy Reaction [id number] REDUCTASE INHIBIT*01/23/2012 14 - Other: See Comments Comments: Lethargic, and muscle and joint pain CLINDAMYCIN 01/17/2012 2 - Rash 9 - Itching MORPHINE 06/11/2012 8 - GI Upset 11 - Vomiting PENICILLINS 02/22/2004 2 - Rash PERCOCET (OXYCODONE-ACETAMINOPHE N)01/17/2016 5 - Intolerance SULFA (SULFONAMIDE ANTIBIOTICS) 02/22/2004 14 - Other: See Comments Comments: thrush Date Reviewed: 11/18/2023 Reviewed by: Vinod Rojas MD - Fully Assessed Reason for Visit: FORWARD ALL ORDERS TO [facility] [Other] Patient Update [1234] Prescriptions as of 11/28/2023 - hydroCHLOROthiazide 25 mg tablet Take 25 mg by mouth once daily. - pregabalin (LYRICA) 100 mg capsule Take 100 mg by mouth three times a day. - vibegron (GEMTESA) 75 mg tablet Take 1 tablet by mouth once daily. - vit C,T-Qj-wcjqs-lutein-ayesha zack (PRESERVISION AREDS-2) 250-90-40-1 mg Take by mouth. - hydroCHLOROthiazide 25 mg tablet - prednisoLONE acetate (PRED FORTE) 1 % ophthalmic suspension Use 1 Drop in the right eye four times daily for 21 days. Start after cataract surgery - nystatin (MYCOSTATIN) powder Apply 1 application to affected area twice daily. - acetaminophen (TYLENOL) 325 mg tablet Take 2 tablets by mouth every 8 hours as needed for pain. - pantoprazole DR (PROTONIX) 40 mg tablet TAKE ONE TABLET BY MOUTH ONCE A DAY - Fluticasone Propionate (CUTIVATE) 0.05 % cream Apply to affected area as needed. Apply as directed to affected area twice daily - hydrOXYzine HCl (ATARAX) 10 mg tablet Take 1 tablet by mouth three times daily as needed for anxiety. - aspirin-caffeine (BACK AND BODY PAIN RELIEVER) 500-32.5 mg tab Take by mouth every 6 hours as needed. - sertraline (ZOLOFT) 100 mg tablet Take 1 tablet by mouth once daily. - ezetimibe (ZETIA) 10 mg tablet Take 1 tablet by mouth once daily. - metoprolol succinate ER (TOPROL XL) 50 mg 24 hr tablet Take 1 tablet by mouth once daily. - potassium chloride (KLOR-CON 10) 10 mEq tablet Take 1 tablet by mouth twice daily. - docusate sodium (COLACE) 100 mg capsule Take 1 capsule by mouth twice daily. - Cholecalciferol, Vitamin D3, (VITAMIN D) 1,000 unit Tab Take 2,000 Units by mouth once daily. - [place]-3 Fatty Acids-Vitamin E (FISH OIL) 1,000 mg cap Take 1 capsule by mouth once daily. - LUTEIN ORAL Take by mouth. Problem List As Of Date 11/20/2023 Noted Resolved Other symptoms referable to lower leg joint [R2*01/16/2005 02/17/2021 GENERAL OSTEOARTHROSIS [M15.9] 01/16/2005 HTN (hypertension) [I10] 01/17/2012 02/17/2021 Coronary artery disease [I25.10] 01/17/2012 02/17/2021 Hypercholesterolemia [E78.00] 01/17/2012 High blood pressure [I10] GERD (gastroesophageal reflux disease) [K21.9] Hx of colonic polyps [Z86.010] Macular degeneration [H35.30] Lumbago [M54.50] 03/25/2012 02/17/2021 Lumbosacral spondylosis without myelopathy [M47*03/25/2012 Degeneration of lumbar or lumbosacral intervert*03/25/2012 Lumbar radicular pain [M54.16] 03/25/2012 Lumbar stenosis [M48.061] 03/25/2012 02/17/2021 Cervicalgia [M54.2] 03/25/2012 02/17/2021 Cervical spondylosis without myelopathy [M47.81*03/25/2012 OA (osteoarthritis) of knee [M17.9] 06/06/2012 02/17/2021 Senile nuclear sclerosis [H25.10] 11/15/2012 DJD (degenerative joint disease) of hip [M16.9] 12/17/2012 02/17/2021 S/P hip replacement [Z96.649] 08/14/2013 Gout of foot, unspecified cause, unspecified ch*11/12/2014 02/17/2021 Overweight(278.02) [E66.3] 11/25/2014 02/17/2021 Gout [M10.9] 11/25/2014 Acute gout [M10.9] 11/25/2014 02/17/2021 Garcia's esophagus with dysplasia [K22.719] 07/29/2015 Benign essential HTN [I10] 07/29/2015 02/17/2021 Mixed hyperlipidemia [E78.2] 07/29/2015 02/17/2021 Irritable bowel syndrome with constipation [K58*01/01/2017 Obesity, Class III, BMI 40-49.9 (morbid obesity*12/10/2017 Fibromyalgia [M79.7] 02/08/2018 Sacroiliitis (HCC) [M46.1] 05/03/2018 02/17/2021 Family history of colon cancer- both parents- h*02/17/2021 Urinary incontinence [R32] 02/17/2021 Hemorrhoids [K64.9] 02/17/2021 Macular edema [H35.81] 02/17/2021 Foot pain, bilateral [M79.671, M79.672] 02/17/2021 Abnormal gait [R26.9] 02/17/2021 Diverticulitis [K57.92] 05/12/2021 Obesity, Class II, BMI 35-39.9 [E66.9] 05/14/2021 Fatigu (more content not included)... [facility] percentageOrdered B y: Rodrigue Saldaña on 10-24-2023 Cholesterol [Mass/Vol] 151 mg/dL <200 [facility] Comment on above: <200 mg/dL Desirable 200-240 mg/dL Borderline >240 mg/dL High Risk Triglyceride [Mass/Vol] 92 mg/dL <199 [facility] Comment on above: The drugs N-Acetylcy steine and Metamizole may falsely depress this assay.Serum Triglycerides Reference Interval Normal <150 mg/dL Borderline high 150 - 199 mg/dL High 200 - 499 mg/dL Very High > or = 500 mg/dL Laboratory - Chemistry and C hemistry - challengeOrdered By: Rodrigue Saldaña on 10-24-2023 Cholesterol in HDL [Mass/Vol] 53 mg/dL >40 [facility] Comment on above: The drugs N-Acetylcy steine and Metamizole may falsely depress this assay. Reference Range HDL <40 mg/dL Low HDL Cholesterol HDL >or= 60 mg/dL High HDL Cholesterol Cholesterol in LDL [Mass/Vol] 80 mg/dL 0-130 [facility] No Panel InformationOrdered By: Rodrigue Saldaña on 10-24-2023 VLDL Cholesterol 18 mg/dL 5-40 [facility] CNPNon 10-12-2023 CNPN Telephone ([facility]) YAA WARD ([id number]) 1940 F NFR Date Time Provider Department 10/12/23 VINOD ROJAS During your visit today, we recorded the following information about you: Estefany Justice, Kelsey 10/12/2023 11:08 AM Signed [facility] returned call to set up surgery. Please call again at [phone] Estefany Kebede Sec, Kelsey 10/12/2023 5:03 PM Signed Taken care of. spoke to rehabilitation aide/scheduler. Allergies As of Date: 10/12/2023 Noted Allergy Reaction [id number] REDUCTASE INHIBIT*01/23/2012 14 - Other: See Comments Comments: Lethargic, and muscle and joint pain CLINDAMYCIN 01/17/2012 2 - Rash 9 - Itching MORPHINE 06/11/2012 8 - GI Upset 11 - Vomiting PENICILLINS 02/22/2004 2 - Rash PERCOCET (OXYCODONE-ACETAMINOPHE N)01/17/2016 5 - Intolerance SULFA (SULFONAMIDE ANTIBIOTICS) 02/22/2004 14 - Other: See Comments Comments: thrush Date Reviewed: 09/18/2023 Reviewed by: Vinod Rojas MD - Fully Assessed Reason for Visit: Schedule Surgery [1330] Prescriptions as of 10/12/2023 - nystatin (MYCOSTATIN) powder Apply 1 application to affected area twice daily. - acetaminophen (TYLENOL) 325 mg tablet Take 2 tablets by mouth every 8 hours as needed for pain. - pantoprazole DR (PROTONIX) 40 mg tablet TAKE ONE TABLET BY MOUTH ONCE A DAY - Fluticasone Propionate (CUTIVATE) 0.05 % cream Apply to affected area as needed. Apply as directed to affected area twice daily - hydrOXYzine HCl (ATARAX) 10 mg tablet Take 1 tablet by mouth three times daily as needed for anxiety. - aspirin-caffeine (BACK AND BODY PAIN RELIEVER) 500-32.5 mg tab Take by mouth every 6 hours as needed. - sertraline (ZOLOFT) 100 mg tablet Take 1 tablet by mouth once daily. - ezetimibe (ZETIA) 10 mg tablet Take 1 tablet by mouth once daily. - metoprolol succinate ER (TOPROL XL) 50 mg 24 hr tablet Take 1 tablet by mouth once daily. - potassium chloride (KLOR-CON 10) 10 mEq tablet Take 1 tablet by mouth twice daily. - docusate sodium (COLACE) 100 mg capsule Take 1 capsule by mouth twice daily. - Cholecalciferol, Vitamin D3, (VITAMIN D) 1,000 unit Tab Take 2,000 Units by mouth once daily. - [place]-3 Fatty Acids-Vitamin E (FISH OIL) 1,000 mg cap Take 1 capsule by mouth once daily. - LUTEIN ORAL Take by mouth. Problem List As Of Date 10/12/2023 Noted Resolved Other symptoms referable to lower leg joint [R2*01/16/2005 02/17/2021 GENERAL OSTEOARTHROSIS [M15.9] 01/16/2005 HTN (hypertension) [I10] 01/17/2012 02/17/2021 Coronary artery disease [I25.10] 01/17/2012 02/17/2021 Hypercholesterolemia [E78.00] 01/17/2012 High blood pressure [I10] GERD (gastroesophageal reflux disease) [K21.9] Hx of colonic polyps [Z86.010] Macular degeneration [H35.30] Lumbago [M54.50] 03/25/2012 02/17/2021 Lumbosacral spondylosis without myelopathy [M47*03/25/2012 Degeneration of lumbar or lumbosacral intervert*03/25/2012 Lumbar radicular pain [M54.16] 03/25/2012 Lumbar stenosis [M48.061] 03/25/2012 02/17/2021 Cervicalgia [M54.2] 03/25/2012 02/17/2021 Cervical spondylosis without myelopathy [M47.81*03/25/2012 OA (osteoarthritis) of knee [M17.9] 06/06/2012 02/17/2021 Senile nuclear sclerosis [H25.10] 11/15/2012 DJD (degenerative joint disease) of hip [M16.9] 12/17/2012 02/17/2021 S/P hip replacement [Z96.649] 08/14/2013 Gout of foot, unspecified cause, unspecified ch*11/12/2014 02/17/2021 Overweight(278.02) [E66.3] 11/25/2014 02/17/2021 Gout [M10.9] 11/25/2014 Acute gout [M10.9] 11/25/2014 02/17/2021 Garcia's esophagus with dysplasia [K22.719] 07/29/2015 Benign essential HTN [I10] 07/29/2015 02/17/2021 Mixed hyperlipidemia [E78.2] 07/29/2015 02/17/2021 Irritable bowel syndrome with constipation [K58*01/01/2017 Obesity, Class III, BMI 40-49.9 (morbid obesity*12/10/2017 Fibromyalgia [M79.7] 02/08/2018 Sacroiliitis (HCC) [M46.1] 05/03/2018 02/17/2021 Family history of colon cancer- both parents- h*02/17/2021 Urinary incontinence [R32] 02/17/2021 Hemorrhoids [K64.9] 02/17/2021 Macular edema [H35.81] 02/17/2021 Foot pain, bilateral [M79.671, M79.672] 02/17/2021 Abnormal gait [R26.9] 02/17/2021 Diverticulitis [K57.92] 05/12/2021 Obesity, Class II, BMI 35-39.9 [E66.9] 05/14/2021 Fatigue [R53.83] 05/15/2021 Encounter Status:Closed by KELSEY WYLIE on 10/12/[address] [facility] - Chemistry and C hemistry - challengeOrdered By: Rodrigue Saldaña on 09-12-2023 Cobalamin (Vitamin B12) [Mass/Vol] 881 pg/mL 211-911 [facility] Absolute lymphocyte countOrd ered By: Regine Morales on 07-20-2023 Lymphocytes Auto (Unsp spec) [#/Vol] 2.27 10*3/uL 0.83-4.51 [facility] Basophil percentageOrdered B y: Regine Morales on 07-20-2023 Basophils/100 WBC (Bld) 0.8 % 0-1 [facility] Chloride [Moles/Vol] 106 mmol/L 98-107 [facility] Cholesterol [Mass/Vol] 138 mg/dL <200 [facility] Comment on above: <200 mg/dL Desirable 200-240 mg/dL Borderline >240 mg/dL High Risk Eosinophils/100 WBC (Bld) 3.9 % 0-5 [facility] Glucose [Mass/Vol] 92 mg/dL 74-106 [facility] Neutrophils (Bld) [#/Vol] 2.3 10*3/uL 2.0-7.7 [facility] Neutrophils/100 WBC (Bld) 43.7 % 47-70 [facility] Potassium [Moles/Vol] 3.5 mmol/L 3.5-5.1 [facility] Sodium [Moles/Vol] 142 mmol/L 136-145 [facility] Triglyceride [Mass/Vol] 105 mg/dL <199 [facility] Comment on above: The drugs N-Acetylcy steine and Metamizole may falsely depress this assay.Serum Triglycerides Reference Interval Normal <150 mg/dL Borderline high 150 - 199 mg/dL High 200 - 499 mg/dL Very High > or = 500 mg/dL WBC (Bld) [#/Vol] 5.3 10*3/uL 4.4-11.0 [facility] Blood erythrocytes count (nu mber/volume)Ordered By: Regine Morales on 07-20-2023 RBC (Bld) [#/Vol] 4.51 10*6/uL 4.2-5.4 [facility] Blood hemoglobin measurement (mass/volume)Ordered By: Regine Morales on 07-20-2023 Hemoglobin (Bld) [Mass/Vol] 13.4 g/dL 12.0-15.0 [facility] Blood lymphocytes/100 leukoc ytesOrdered By: Regine Morales on 07-20-2023 Lymphocytes/100 WBC (Bld) 42.6 % 19-41 [facility] Blood monocytes/100 leukocyt esOrdered By: Regine Morales on 07-20-2023 Monocytes/100 WBC (Bld) 8.8 % 0-10 [facility] Blood platelet mean volumeOr dered By: Regine Morales on 07-20-2023 Platelet mean volume (Bld) [Entitic vol] 10.4 fL 6.2-12.0 [facility] Determination of erythrocyte mean corpuscular volume (MCV)Ordered By: Regine Morales on 07-20-2023 MCV (RBC) [Entitic vol] 92.7 fL 81-99 [facility] Hematocrit Auto (Bld) [Volum e fraction]Ordered By: Regine Morales on 07-20-2023 Hematocrit (Bld) [Volume fraction] 41.8 % 37-47 [facility] Laboratory - Chemistry and C hemistry - challengeOrdered By: Regine Morales on 07-20-2023 CO2 [Moles/Vol] 27.0 mmol/L 21.0-32.0 [facility] Urea nitrogen/Creatinine [Mass ratio] 34.5 mg/mg 10-20 [facility] Laboratory - Hematology and Cell countsOrdered By: Regine Morales on 07-20-2023 Erythrocyte distribution width (RBC) [Entitic vol] 51.7 fL 35.1-43.9 [facility] Erythrocyte distribution width (RBC) [Ratio] 15.1 % 11.6-14.6 [facility] Immature granulocytes/100 WBC (Bld) 0.200 % 0.0-0.9 [facility] Comment on above: IG% - Immature Granu locytes (promyelocytes, myelocytes and metamyelocytes) > 1% indicates that a LEFT SHIFT is Present. MCH (RBC) [Entitic mass] 29.7 pg 27.0-32.0 [facility] Nucleated RBC/100 WBC (Bld) [Ratio] 0 % 0-5 [facility] MCHC Auto (RBC) [Mass/Vol]Or dered By: Regine Morales on 07-20-2023 MCHC (RBC) [Mass/Vol] 32.1 g/dL 32-36 [facility] No Panel InformationOrdered By: Regine Morales on 07-20-2023 Estimated GFR (MDRD) Amer 59 mL/min >60 [facility] Comment on above: GFR Calc Estimated GFR (MDRD) Non-Af Amer 49 mL/min >60 [facility] Comment on above: Non- GFR Calc Vitamin D 25-Hydroxy 62.2 ng/mL [facility] Comment on above: Vitamin D 25(OH) Sta tus Range Deficiency <20 ng/mL (50nmol/L) Insufficiency 20 - 30 ng/mL (50 - 75 nmol/L) Sufficiency 30 - 100 ng/mL (75 - 250 nmol/L) Toxicity >100 ng/mL (>250 nmol/L) Platelets bldOrdered By: Serafin Morales on 07-20-2023 Platelets (Bld) [#/Vol] 159 10*3/uL 150-450 [facility] Serum or plasma calcium murali urement (mass/volume)Ordered By: Regine Morales on 07-20-2023 Calcium [Mass/Vol] 8.8 mg/dL 8.5-10.1 [facility] Serum or plasma cholesterol in HDL measurement (mass/volume)Ordered By: Regine Morales on 07-20-2023 Cholesterol in HDL [Mass/Vol] 51 mg/dL >40 [facility] Comment on above: The drugs N-Acetylcy steine and Metamizole may falsely depress this assay. Reference Range HDL <40 mg/dL Low HDL Cholesterol HDL >or= 60 mg/dL High HDL Cholesterol Serum or plasma cholesterol in VLDL measurement (mass/volume)Ordered By: Regine Morales on 07-20-2023 Cholesterol in VLDL [Mass/Vol] 21 mg/dL 5-40 [facility] Serum or plasma creatinine m easurement (mass/volume)Ordered By: Regine Morales on 07-20-2023 Creatinine [Mass/Vol] 1.13 mg/dL 0.55-1.02 [facility] Comment on above: The validity of the calculated GFR & GFRAA in patients over 70 years has not been determined. Clinical correlation is essential. Serum or plasma low density lipoprotein (LDL) cholesterol measurement (mass/volume)Ordered By: Regine Morales on 07-20-2023 Cholesterol in LDL [Mass/Vol] 66 mg/dL 0-130 [facility] Serum or plasma urea nitroge n measurement (mass/volume)Ordered By: Regine Morales on 07-20-2023 Urea nitrogen [Mass/Vol] 39 mg/dL 7-18 [facility] Thin prep Papanicolaou smear with manual screeningOrdered By: Regine Morales on 07-20-2023 Thin prep Papanicolaou smear with manual screening 9 5-15 [facility] Basophil percentageOrdered B y: Rodrigue Saldaña on 07-13-2023 Potassium [Moles/Vol] 3.6 mmol/L 3.5-5.1 [facility] Absolute lymphocyte countOrd ered By: Roula Living on 07-05-2023 Lymphocytes Auto (Unsp spec) [#/Vol] 2.48 10*3/uL 0.83-4.51 [facility] Basophil percentageOrdered B y: Roula Living on 07-05-2023 Basophils/100 WBC (Bld) 0.6 % 0-1 [facility] Bilirubin [Mass/Vol] 0.50 mg/dL 0.20-1.00 [facility] Comment on above: For patients on eltr ombopag therapy, use of Dimension [place] TBIL is not recommended. Chloride [Moles/Vol] 108 mmol/L 98-107 [facility] Eosinophils/100 WBC (Bld) 3.5 % 0-5 [facility] Glucose [Mass/Vol] 97 mg/dL 74-106 [facility] Neutrophils (Bld) [#/Vol] 3.5 10*3/uL 2.0-7.7 [facility] Neutrophils/100 WBC (Bld) 50.4 % 47-70 [facility] Potassium [Moles/Vol] 3.4 mmol/L 3.5-5.1 [facility] Protein [Mass/Vol] 7.2 g/dL 6.4-8.2 [facility] Sodium [Moles/Vol] 142 mmol/L 136-145 [facility] WBC (Bld) [#/Vol] 6.9 10*3/uL 4.4-11.0 [facility] Blood erythrocytes count (nu mber/volume)Ordered By: [facility] on 07-05-2023 RBC (Bld) [#/Vol] 4.42 10*6/uL 4.2-5.4 [facility] Blood hemoglobin measurement (mass/volume)Ordered By: [facility] on 07-05-2023 Hemoglobin (Bld) [Mass/Vol] 13.3 g/dL 12.0-15.0 [facility] Blood lymphocytes/100 leukoc ytesOrdered By: [facility] on 07-05-2023 Lymphocytes/100 WBC (Bld) 36.2 % 19-41 [facility] Blood monocytes/100 leukocyt esOrdered By: [facility] on 07-05-2023 Monocytes/100 WBC (Bld) 8.9 % 0-10 [facility] Blood platelet mean volumeOr dered By: [facility] on 07-05-2023 Platelet mean volume (Bld) [Entitic vol] 9.9 fL 6.2-12.0 [facility] Determination of erythrocyte mean corpuscular volume (MCV)Ordered By: [facility] on 07-05-2023 MCV (RBC) [Entitic vol] 91.6 fL 81-99 [facility] Hematocrit Auto (Bld) [Volum e fraction]Ordered By: Millis Living on 07-05-2023 Hematocrit (Bld) [Volume fraction] 40.5 % 37-47 [facility] Laboratory - Chemistry and C hemistry - challengeOrdered By: Millis Living on 07-05-2023 ALP [Catalytic activity/Vol] 88 U/L 45-117 [facility] ALT [Catalytic activity/Vol] 22 U/L 13-56 [facility] CO2 [Moles/Vol] 25.0 mmol/L 21.0-32.0 [facility] Cobalamin (Vitamin B12) [Mass/Vol] 207 pg/mL 211-911 [facility] Globulin (S) [Mass/Vol] 3.9 g/dL 2.2-4.2 [facility] Urea nitrogen/Creatinine [Mass ratio] 51.8 mg/mg 10-20 [facility] Laboratory - Hematology and Cell countsOrdered By: Millis Living on 07-05-2023 Erythrocyte distribution width (RBC) [Entitic vol] 50.5 fL 35.1-43.9 [facility] Erythrocyte distribution width (RBC) [Ratio] 14.8 % 11.6-14.6 [facility] Immature granulocytes/100 WBC (Bld) 0.400 % 0.0-0.9 [facility] Comment on above: IG% - Immature Granu locytes (promyelocytes, myelocytes and metamyelocytes) > 1% indicates that a LEFT SHIFT is Present. MCH (RBC) [Entitic mass] 30.1 pg 27.0-32.0 [facility] Nucleated RBC/100 WBC (Bld) [Ratio] 0 % 0-5 [facility] MCHC Auto (RBC) [Mass/Vol]Or dered By: Millis Living on 07-05-2023 MCHC (RBC) [Mass/Vol] 32.8 g/dL 32-36 [facility] No Panel InformationOrdered By: Roula Living on 07-05-2023 Estimated GFR (MDRD) Amer 61 mL/min >60 [facility] Comment on above: GFR Calc Estimated GFR (MDRD) Non-Af Amer 50 mL/min >60 [facility] Comment on above: Non- GFR Calc Thyroid Stimulating Hormone (TSH) 0.90 uIU/mL 0.358-3.74 [facility] Vitamin D 25-Hydroxy 49.2 ng/mL [facility] Comment on above: Vitamin D 25(OH) Sta tus Range Deficiency <20 ng/mL (50nmol/L) Insufficiency 20 - 30 ng/mL (50 - 75 nmol/L) Sufficiency 30 - 100 ng/mL (75 - 250 nmol/L) Toxicity >100 ng/mL (>250 nmol/L) Platelets bldOrdered By: Jet campos Living on 07-05-2023 Platelets (Bld) [#/Vol] 180 10*3/uL 150-450 [facility] Serum or plasma albumin murali urement (mass/volume)Ordered By: [facility] on 07-05-2023 Albumin [Mass/Vol] 3.3 g/dL 3.2-5.0 [facility] Serum or plasma albumin/glob ulin mass ratioOrdered By: [facility] on 07-05-2023 Albumin/Globulin [Mass ratio] 0.8 {ratio} 0.9-2.4 [facility] Serum or plasma calcium murali urement (mass/volume)Ordered By: [facility] on 07-05-2023 Calcium [Mass/Vol] 8.8 mg/dL 8.5-10.1 [facility] Serum or plasma creatinine m easurement (mass/volume)Ordered By: [facility] on 07-05-2023 Creatinine [Mass/Vol] 1.10 mg/dL 0.55-1.02 [facility] Comment on above: The validity of the calculated GFR & GFRAA in patients over 70 years has not been determined. Clinical correlation is essential. Serum or plasma urea nitroge n measurement (mass/volume)Ordered By: [facility] on 07-05-2023 Urea nitrogen [Mass/Vol] 57 mg/dL 7-18 [facility] Thin prep Papanicolaou smear with manual screeningOrdered By: [facility] on 07-05-2023 Thin prep Papanicolaou smear with manual screening 22 U/L 15-37 [facility] Thin prep Papanicolaou smear with manual screening 9 5-15 [facility] Anaerobic cultureOrdered By: Efewongbe Oleghe on 06-03-2023 Bacteria identified Anaer cx Nom (Unsp spec) No anaerobic bacteria isolated. [facility] Bacteria identified Cx Nom ( Wound)Ordered By: Efewongbe Oleghe on 06-03-2023 Wound Culture Meth. resistant Stap h. aureus [facility] Wound Culture Corynebacterium striatum [facility] Gram stain for investigation of transfusion reactionOrdered By: Efewongbe Oleghe on 06-03-2023 Microscopic observation Gram stain Nom (Unsp spec) [facility] Anaerobic cultureOrdered By: Efewongbe Oleghe on 06-02-2023 Bacteria identified Anaer cx Nom (Unsp spec) No anaerobic bacteria isolated. [facility] Bacteria identified Cx Nom ( Wound)Ordered By: Efewongbe Oleghe on 06-02-2023 Wound Culture Meth. resistant Stap h. aureus [facility] Wound Culture Corynebacterium striatum [facility] Gram stain for investigation of transfusion reactionOrdered By: Efewongbe Oleghe on 06-02-2023 Microscopic observation Gram stain Nom (Unsp spec) [facility] Bacteria identified Cx Nom ( Wound)Ordered By: Efewongbe Oleghe on 05-15-2023 Wound Culture Meth. resistant Stap h. aureus [facility] Wound Culture Kocuria marbinae [facility] Gram stain for investigation of transfusion reactionOrdered By: Efewongbe Oleghe on 05-15-2023 Microscopic observation Gram stain Nom (Unsp spec) [facility] Basophil percentageOrdered B y: Regine Morales on 04-19-2023 Cholesterol [Mass/Vol] 156 mg/dL <[address] [facility] Comment on above: <200 mg/dL Desirable 200-240 mg/dL Borderline >240 mg/dL High Risk Triglyceride [Mass/Vol] 205 mg/dL <199 [facility] Comment on above: The drugs N-Acetylcy steine and Metamizole may falsely depress this assay.Serum Triglycerides Reference Interval Normal <150 mg/dL Borderline high 150 - 199 mg/dL High 200 - 499 mg/dL Very High > or = 500 mg/dL Serum or plasma cholesterol in HDL measurement (mass/volume)Ordered By: Regine Morales on 04-19-2023 Cholesterol in HDL [Mass/Vol] 49 mg/dL >40 [facility] Comment on above: The drugs N-Acetylcy steine and Metamizole may falsely depress this assay. Reference Range HDL <40 mg/dL Low HDL Cholesterol HDL >or= 60 mg/dL High HDL Cholesterol Serum or plasma cholesterol in VLDL measurement (mass/volume)Ordered By: Regine Morales on 04-19-2023 Cholesterol in VLDL [Mass/Vol] 41 mg/dL 5-40 [facility] Serum or plasma low density lipoprotein (LDL) cholesterol measurement (mass/volume)Ordered By: Regine Morales on 04-19-2023 Cholesterol in LDL [Mass/Vol] 66 mg/dL 0-130 [facility] Absolute lymphocyte countOrd ered By: Rodrigue Saldaña on 01-17-2023 Lymphocytes Auto (Unsp spec) [#/Vol] 2.14 10*3/uL 0.83-4.51 [facility] Basophil percentageOrdered B y: Rodrigue Saldaña on 01-17-2023 Basophils/100 WBC (Bld) 0.7 % 0-1 [facility] Chloride [Moles/Vol] 109 mmol/L 98-107 [facility] Cholesterol [Mass/Vol] 196 mg/dL <[address] [facility] Comment on above: <200 mg/dL Desirable 200-240 mg/dL Borderline >240 mg/dL High Risk Eosinophils/100 WBC (Bld) 3.9 % 0-5 [facility] Glucose [Mass/Vol] 78 mg/dL 74-106 [facility] Neutrophils (Bld) [#/Vol] 2.7 10*3/uL 2.0-7.7 [facility] Neutrophils/100 WBC (Bld) 47.8 % 47-70 [facility] Potassium [Moles/Vol] 3.5 mmol/L 3.5-5.1 [facility] Sodium [Moles/Vol] 144 mmol/L 136-145 [facility] Triglyceride [Mass/Vol] 275 mg/dL <199 [facility] Comment on above: The drugs N-Acetylcy steine and Metamizole may falsely depress this assay.Serum Triglycerides Reference Interval Normal <150 mg/dL Borderline high 150 - 199 mg/dL High 200 - 499 mg/dL Very High > or = 500 mg/dL WBC (Bld) [#/Vol] 5.6 10*3/uL 4.4-11.0 [facility] Blood erythrocytes count (nu mber/volume)Ordered By: Rodrigue Saldaña on 01-17-2023 RBC (Bld) [#/Vol] 4.73 10*6/uL 4.2-5.4 [facility] Blood hemoglobin measurement (mass/volume)Ordered By: Rodrigue Saldaña on 01-17-2023 Hemoglobin (Bld) [Mass/Vol] 13.9 g/dL 12.0-15.0 [facility] Blood lymphocytes/100 leukoc ytesOrdered By: Rodrigue Saldaña on 01-17-2023 Lymphocytes/100 WBC (Bld) 38.4 % 19-41 [facility] Blood monocytes/100 leukocyt esOrdered By: jessicamortonmaryann Saldaña on 01-17-2023 Monocytes/100 WBC (Bld) 9.0 % 0-10 [facility] Blood platelet mean volumeOr dered By: Rodrigue Saldaña on 01-17-2023 Platelet mean volume (Bld) [Entitic vol] 9.8 fL 6.2-12.0 [facility] Determination of erythrocyte mean corpuscular volume (MCV)Ordered By: Rodrigue Saldaña on 01-17-2023 MCV (RBC) [Entitic vol] 91.5 fL 81-99 [facility] Hematocrit Auto (Bld) [Volum e fraction]Ordered By: Rodrigue Saldaña on 01-17-2023 Hematocrit (Bld) [Volume fraction] 43.3 % 37-47 [facility] Laboratory - Chemistry and C hemistry - challengeOrdered By: Rodrigue Saldaña on 01-17-2023 CO2 [Moles/Vol] 28.0 mmol/L 21.0-32.0 [facility] Urea nitrogen/Creatinine [Mass ratio] 32.4 mg/mg 10-20 [facility] Laboratory - Hematology and Cell countsOrdered By: Rodrigue Saldaña on 05-10-2023 Erythrocyte distribution width (RBC) [Entitic vol] 56.1 fL 35.1-43.9 [facility] Erythrocyte distribution width (RBC) [Ratio] 16.6 % 11.6-14.6 [facility] Immature granulocytes/100 WBC (Bld) 0.200 % 0.0-0.9 [facility] Comment on above: IG% - Immature Granu locytes (promyelocytes, myelocytes and metamyelocytes) > 1% indicates that a LEFT SHIFT is Present. MCH (RBC) [Entitic mass] 29.4 pg 27.0-32.0 [facility] Nucleated RBC/100 WBC (Bld) [Ratio] 0 % 0-5 [facility] MCHC Auto (RBC) [Mass/Vol]Or dered By: Rodrigue Saldaña on 01-17-2023 MCHC (RBC) [Mass/Vol] 32.1 g/dL 32-36 [facility] No Panel InformationOrdered By: Rodrigue Saldaña on 01-17-2023 Estimated GFR (MDRD) Amer 81 mL/min >60 [facility] Comment on above: GFR Calc Estimated GFR (MDRD) Non-Af Amer 67 mL/min >60 [facility] Comment on above: Non- GFR Calc Platelets bldOrdered By: Mikel Saldaña on 01-17-2023 Platelets (Bld) [#/Vol] 125 10*3/uL 150-450 [facility] Serum or plasma calcium murali urement (mass/volume)Ordered By: Rodrigue Saldaña on 01-17-2023 Calcium [Mass/Vol] 9.0 mg/dL 8.5-10.1 [facility] Serum or plasma cholesterol in HDL measurement (mass/volume)Ordered By: Rodrigue Saldaña on 01-17-2023 Cholesterol in HDL [Mass/Vol] 39 mg/dL >40 [facility] Comment on above: The drugs N-Acetylcy steine and Metamizole may falsely depress this assay. Reference Range HDL <40 mg/dL Low HDL Cholesterol HDL >or= 60 mg/dL High HDL Cholesterol Serum or plasma cholesterol in VLDL measurement (mass/volume)Ordered By: Rodrigue Saldaña on 01-17-2023 Cholesterol in VLDL [Mass/Vol] 55 mg/dL 5-40 [facility] Serum or plasma creatinine m easurement (mass/volume)Ordered By: Rodrigue Saldaña on 01-17-2023 Creatinine [Mass/Vol] 0.86 mg/dL 0.55-1.02 [facility] Comment on above: The validity of the calculated GFR & GFRAA in patients over 70 years has not been determined. Clinical correlation is essential. Serum or plasma low density lipoprotein (LDL) cholesterol measurement (mass/volume)Ordered By: Rodrigue Saldaña on 01-17-2023 Cholesterol in LDL [Mass/Vol] 102 mg/dL 0-130 [facility] Serum or plasma urea nitroge n measurement (mass/volume)Ordered By: Teamortonmrayann Yadavlexie on 01-17-2023 Urea nitrogen [Mass/Vol] 28 mg/dL 7-18 [facility] Thin prep Papanicolaou smear with manual screeningOrdered By: Teamortonmaryann Saldaña on 01-17-2023 Thin prep Papanicolaou smear with manual screening 7 5-15 [facility] Absolute lymphocyte counton 07-20-2022 Lymphocytes Auto (Unsp spec) [#/Vol] 2.22 10*3/uL 0.83-4.51 [facility] Work Phone: Basophil percentageon 2021 Basophils/100 WBC (Bld) 0.7 % 0-1 [facility] Work Phone: Chloride [Moles/Vol] 105 mmol/L 98-107 os [facility] Work Phone: Cholesterol [Mass/Vol] 155 mg/dL <200 [facility] Work Phone: Comment on above: <200 mg/dL Desirable 200-240 mg/dL Borderline >240 mg/dL High Risk Eosinophils/100 WBC (Bld) 5.3 % 0-5 [facility] [facility] Work Phone: [phone] Glucose [Mass/Vol] 95 mg/dL 74-106 [facility] Work Phone: Neutrophils (Bld) [#/Vol] 3.6 10*3/uL 2.0-7.7 [facility] Work Phone: Neutrophils/100 WBC (Bld) 52.4 % 47-70 [facility] Work Phone: Potassium [Moles/Vol] 3.7 mmol/L 3.5-5.1 [facility] Work Phone: Sodium [Moles/Vol] 143 mmol/L 136-145 [facility] Work Phone: Triglyceride [Mass/Vol] 160 mg/dL <199 [facility] Work Phone: Comment on above: The drugs N-Acetylcy steine and Metamizole may falsely depress this assay.Serum Triglycerides Reference Interval Normal <150 mg/dL Borderline high 150 - 199 mg/dL High 200 - 499 mg/dL Very High > or = 500 mg/dL WBC (Bld) [#/Vol] 6.8 10*3/uL 4.4-11.0 [facility] Work Phone: Blood erythrocytes count (nu mber/volume)on 07-20-2022 RBC (Bld) [#/Vol] 4.66 10*6/uL 4.2-5.4 [facility] Work Phone: Blood hemoglobin measurement (mass/volume)on 07-20-2022 Hemoglobin (Bld) [Mass/Vol] 13.6 g/dL 12.0-15.0 [facility] Work Phone: [phone] Blood lymphocytes/100 leukoc yteson 07-20-2022 Lymphocytes/100 WBC (Bld) 32.6 % 19-41 [facility] Work Phone: Blood monocytes/100 leukocyt eson 07-20-2022 Monocytes/100 WBC (Bld) 8.7 % 0-10 [facility] Work Phone: Blood platelet mean volumeon 07-20-2022 Platelet mean volume (Bld) [Entitic vol] 9.8 fL 6.2-12.0 [facility] Work Phone: Determination of erythrocyte mean corpuscular volume (MCV)on 07-20-2022 MCV (RBC) [Entitic vol] 90.3 fL 81-99 [facility] Work Phone: Hematocrit Auto (Bld) [Volum e fraction]on 07-20-2022 Hematocrit (Bld) [Volume fraction] 42.1 % 37-47 [facility] Work Phone: Laboratory - Chemistry and C hemistry - challengeon 07-20-2022 CO2 [Moles/Vol] 26.0 mmol/L 21.0-32.0 [facility] Work Phone: Urea nitrogen/Creatinine [Mass ratio] 22.1 mg/mg 10-20 [facility] Work Phone: Laboratory - Hematology and Cell countson 07-20-2022 Erythrocyte distribution width (RBC) [Entitic vol] 54.7 fL 35.1-43.9 [facility] Work Phone: Erythrocyte distribution width (RBC) [Ratio] 16.7 % 11.6-14.6 [facility] Work Phone: Immature granulocytes/100 WBC (Bld) 0.300 % 0.0-0.9 [facility] Work Phone: Comment on above: IG% - Immature Granu locytes (promyelocytes, myelocytes and metamyelocytes) > 1% indicates that a LEFT SHIFT is Present. MCH (RBC) [Entitic mass] 29.2 pg 27.0-32.0 [facility] Work Phone: Nucleated RBC/100 WBC (Bld) [Ratio] 0 % 0-5 [facility] Work Phone: MCHC Auto (RBC) [Mass/Vol]on 07-20-2022 MCHC (RBC) [Mass/Vol] 32.3 g/dL 32-36 [facility] Work [facility]: No Panel Informationon 07-20 Estimated GFR (MDRD) Amer 59 mL/min >60 [facility] Work Phone: Comment on above: GFR Calc Estimated GFR (MDRD) Non-Af Amer 49 mL/min >60 [facility] Work Phone: Comment on above: Non- GFR Calc Vitamin D 25-Hydroxy 54.0 ng/mL [facility] Work Phone: Comment on above: Vitamin D 25(OH) Sta tus Range Deficiency <20 ng/mL (50nmol/L) Insufficiency 20 - 30 ng/mL (50 - 75 nmol/L) Sufficiency 30 - 100 ng/mL (75 - 250 nmol/L) Toxicity >100 ng/mL (>250 nmol/L) Platelets bldon 07-20-2022 Platelets (Bld) [#/Vol] 141 10*3/uL 150-450 [facility] Work Phone: Serum or plasma calcium murali urement (mass/volume)on 07-20-2022 Calcium [Mass/Vol] 8.8 mg/dL 8.5-10.1 [facility] Work Phone: Serum or plasma cholesterol in HDL measurement (mass/volume)on 07-20-2022 Cholesterol in HDL [Mass/Vol] 38 mg/dL >40 [facility] Work Phone: Comment on above: The drugs N-Acetylcy steine and Metamizole may falsely depress this assay. Reference Range HDL <40 mg/dL Low HDL Cholesterol HDL >or= 60 mg/dL High HDL Cholesterol Serum or plasma cholesterol in VLDL measurement (mass/volume)on 07-20-2022 Cholesterol in VLDL [Mass/Vol] 32 mg/dL 5-40 [facility] Work Phone: Serum or plasma creatinine m easurement (mass/volume)on 07-20-2022 Creatinine [Mass/Vol] 1.13 mg/dL 0.55-1.02 [facility] Work Phone: Comment on above: The validity of the calculated GFR & GFRAA in patients over 70 years has not been determined. Clinical correlation is essential. Serum or plasma low density lipoprotein (LDL) cholesterol measurement (mass/volume)on 07-20-2022 Cholesterol in LDL [Mass/Vol] 85 mg/dL 0-130 [facility] Work Phone: Serum or plasma urea nitroge n measurement (mass/volume)on 07-20-2022 Urea nitrogen [Mass/Vol] 25 mg/dL 7-18 [facility] Work Phone: Thin prep Papanicolaou smear with manual screeningon 07-20-2022 Thin prep Papanicolaou smear with manual screening 12 5-15 [facility] Work Phone: Basophil percentageon 2021 Cholesterol [Mass/Vol] 151 mg/dL <200 [facility] Work Phone: Comment on above: <200 mg/dL Desirable 200-240 mg/dL Borderline >240 mg/dL High Risk Potassium [Moles/Vol] 3.3 mmol/L 3.5-5.1 [facility] Work Phone: Triglyceride [Mass/Vol] 178 mg/dL <199 [facility] Work Phone: Comment on above: The drugs N-Acetylcy steine and Metamizole may falsely depress this assay.Serum Triglycerides Reference Interval Normal <150 mg/dL Borderline high 150 - 199 mg/dL High 200 - 499 mg/dL Very High > or = 500 mg/dL Serum or plasma cholesterol in HDL measurement (mass/volume)on 04-19-2022 Cholesterol in HDL [Mass/Vol] 38 mg/dL >40 [facility] Work Phone: Comment on above: The drugs N-Acetylcy steine and Metamizole may falsely depress this assay. Reference Range HDL <40 mg/dL Low HDL Cholesterol HDL >or= 60 mg/dL High HDL Cholesterol Serum or plasma cholesterol in VLDL measurement (mass/volume)on 04-19-2022 Cholesterol in VLDL [Mass/Vol] 36 mg/dL 5-40 [facility] Work Phone: Serum or plasma low density lipoprotein (LDL) cholesterol measurement (mass/volume)on 04-19-2022 Cholesterol in LDL [Mass/Vol] 77 mg/dL 0-130 [facility] Work Phone: [phone] Absolute lymphocyte counton 01-31-2022 Lymphocytes Auto (Unsp spec) [#/Vol] 2.30 10*3/uL 0.83-4.51 [facility] Work Phone: Basophil percentageon 2021 Basophils/100 WBC (Bld) 0.5 % 0-1 [facility] Work Phone: [phone] Chloride [Moles/Vol] 108 mmol/L 98-107 [facility] Work Phone: [phone] Eosinophils/100 WBC (Bld) 4.0 % 0-5 [facility] Work Phone: [phone] Glucose [Mass/Vol] 122 mg/dL 74-106 [facility] Work Phone: Comment on above: Fasting Glucose resu lt from 100 to 125 mg/dL suggests IMPAIRED HOMEOSTASIS per A.D.A. criteria. Neutrophils (Bld) [#/Vol] 4.0 10*3/uL 2.0-7.7 [facility] Work Phone: [phone] Neutrophils/100 WBC (Bld) 55.0 % 47-70 [facility] Work Phone: [phone] Potassium [Moles/Vol] 3.3 mmol/L 3.5-5.1 [facility] Work Phone: [phone] Sodium [Moles/Vol] 141 mmol/L 136-145 [facility] Work Phone: [phone] WBC (Bld) [#/Vol] 7.3 10*3/uL 4.4-11.0 [facility] Work Phone: Blood erythrocytes count (nu mber/volume)on 01-31-2022 RBC (Bld) [#/Vol] 4.29 10*6/uL 4.2-5.4 [facility] Work Phone: [phone] Blood hemoglobin measurement (mass/volume)on 01-31-2022 Hemoglobin (Bld) [Mass/Vol] 12.6 g/dL 12.0-15.0 [facility] Work Phone: Blood lymphocytes/100 leukoc yteson 01-31-2022 Lymphocytes/100 WBC (Bld) 31.6 % 19-41 [facility] Work Phone: Blood monocytes/100 leukocyt eson 01-31-2022 Monocytes/100 WBC (Bld) 8.6 % 0-10 [facility] Work Phone: Blood platelet mean volumeon 01-31-2022 Platelet mean volume (Bld) [Entitic vol] 9.6 fL 6.2-12.0 [facility] Work Phone: Determination of erythrocyte mean corpuscular volume (MCV)on 01-31-2022 MCV (RBC) [Entitic vol] 90.0 fL 81-99 [facility] Work Phone: Hematocrit Auto (Bld) [Volum e fraction]on 01-31-2022 Hematocrit (Bld) [Volume fraction] 38.6 % 37-47 [facility] Work Phone: Laboratory - Chemistry and C hemistry - challengeon 01-31-2022 CO2 [Moles/Vol] 25.0 mmol/L 21.0-32.0 [facility] Work Phone: Urea nitrogen/Creatinine [Mass ratio] 31.1 mg/mg 10-20 [facility] Work Phone: Laboratory - Hematology and Cell countson 01-31-2022 Erythrocyte distribution width (RBC) [Entitic vol] 52.0 fL 35.1-43.9 [facility] Work Phone: Erythrocyte distribution width (RBC) [Ratio] 15.9 % 11.6-14.6 [facility] Work Phone: Immature granulocytes/100 WBC (Bld) 0.300 % 0.0-0.9 [facility] Work Phone: Comment on above: IG% - Immature Granu locytes (promyelocytes, myelocytes and metamyelocytes) > 1% indicates that a LEFT SHIFT is Present. MCH (RBC) [Entitic mass] 29.4 pg 27.0-32.0 [facility] Work Phone: Nucleated RBC/100 WBC (Bld) [Ratio] 0 % 0-5 [facility] Work Phone: MCHC Auto (RBC) [Mass/Vol]on 01-31-2022 MCHC (RBC) [Mass/Vol] 32.6 g/dL 32-36 [facility] Work Phone: No Panel Informationon 01-31 Estimated GFR (MDRD) Amer 69 mL/min >60 [facility] Work Phone: Comment on above: GFR Calc Estimated GFR (MDRD) Non-Af Amer 57 mL/min >60 [facility] Work Phone: Comment on above: Non- GFR Calc Platelets bldon 01-31-2022 Platelets (Bld) [#/Vol] 139 10*3/uL 150-450 [facility] Work Phone: Serum or plasma calcium murali urement (mass/volume)on 01-31-2022 Calcium [Mass/Vol] 8.6 mg/dL 8.5-10.1 [facility] Work Phone: Serum or plasma creatinine m easurement (mass/volume)on 01-31-2022 Creatinine [Mass/Vol] 1.00 mg/dL 0.55-1.02 [facility] Work Phone: Comment on above: The validity of the calculated GFR & GFRAA in patients over 70 years has not been determined. Clinical correlation is essential. Serum or plasma urea nitroge n measurement (mass/volume)on 01-31-2022 Urea nitrogen [Mass/Vol] 31 mg/dL 7-18 [facility] Work Phone: Thin prep Papanicolaou smear with manual screeningon 01-31-2022 Thin prep Papanicolaou smear with manual screening 8 5-15 [facility] Work Phone: CBCon 05-17-2021 Absolute nRBC <0.01 Normal <0.01 [facility] Erythrocyte distribution width (RBC) [Ratio] 14.8 % Normal 11.5-15.0 [facility] Hematocrit (Bld) [Volume fraction] 39.7 % Normal 36.0-46.0 [facility] Hemoglobin (Bld) [Mass/Vol] 13.1 g/dL Normal 11.5-15.5 [facility] MCH 29.6 pG Normal 26.0-34.0 [facility] MCHC (RBC) [Mass/Vol] 33.0 g/dL Normal 30.5-36.0 [facility] MCV (RBC) [Entitic vol] 89.6 fL Normal 80.0-100.0 [facility] Platelet mean volume (Bld) [Entitic vol] 9.2 fL Normal 9.0-12.7 [facility] Platelets (Bld) [#/Vol] 191 10*3/uL Normal 150-400 [facility] RBC (Bld) [#/Vol] 4.43 10*6/uL Normal 3.90-5.20 [facility] WBC (Bld) [#/Vol] 7.18 10*3/uL Normal 3.70-11.00 [facility] Magnesiumon 05-17-2021 Magnesium [Mass/Vol] 1.9 mg/dL Normal 1.7-2.6 [facility] NURSING PROGon 05-17-2021 NURSING PROG HNO ID: [id number] Author: Kymberly Maldonado, SALO Service: ? Author Type: Registered Nurse Type: Nursing Progress Note Filed: 05/17/2021 4:33 PM Note Text: Nursing Progress Note Patient Name: Yaa Ward Patient Location: /-1 Daily Note: [id number] received report from apiculturist RN and assumed care. Bedside report and safety checks complete. 1630 called report to nurse Karen at [facility] This note was completed by: Kymberly Maldonado Normal [facility] Renal Function Panelon 05-17 Albumin [Mass/Vol] 3.3 g/dL Low 3.5-5.0 [facility] Anion gap [Moles/Vol] 14 mmol/L Normal 0-15 [facility] Calcium [Mass/Vol] 9.0 mg/dL Normal 8.5-10.2 [facility] Chloride [Moles/Vol] 102 mmol/L Normal 97-105 [facility] CO2 [Moles/Vol] 23 mmol/L Normal 22-30 [facility] Creatinine [Mass/Vol] 0.98 mg/dL High 0.58-0.96 [facility] eGFR- Amer. >60 Normal [facility] eGFR-All Other Races 54 . Normal [facility] Comment on above: Result Comment: eGFR (Estimated GFR) Units of measure: mL/min/1.73 meters squared eGFR is derived from the reexpressed MDRD Study equation using the following parameters: serum creatinine, age, gender and race. The creatinine assay has been calibrated to be traceable to IDMS. An eGFR <60 mL/min/1.73m2 for >3 months is consistent with chronic kidney disease. Refer to KDOQI guidelines for clinical interpretation. In patients with unstable renal function, e.g. those with acute kidney injury, the eGFR may not accurately reflect actual GFR. Glucose [Mass/Vol] 91 mg/dL Normal 74-99 [facility] Phosphate [Mass/Vol] 3.6 mg/dL Normal 2.7-4.8 [facility] Potassium [Moles/Vol] 3.9 mmol/L Normal 3.7-5.1 [facility] Sodium [Moles/Vol] 139 mmol/L Normal 136-144 [facility] Urea nitrogen [Mass/Vol] 26 mg/dL High 7-21 [facility] THERAPY NTon 05-17-2021 THERAPY NT HNO ID: [id number] Author: Delisa Dionisio, OT/L Service: Occupational Therapy Author Type: Occupational Therapist Type: Therapy (PT/OT/Speech/Resp) Filed: 05/17/2021 11:31 AM Note Text: Occupational Therapy Evaluation SERVICE DATE: 05/17/2021 SERVICE TIME: 951 to 1034 ROOM: [place] [address] Recommended Discharge Disposition: Subacute/SNF Recommended Discharge Disposition Comments: Pt very IND prior to this admission. Presenting below PLOF from OT standpoint. Will benefit form SNF prior to return home to maximize IND and safety with ADLs. Recommended Discharge Disposition Due to: Patient requires daily, facility-based rehabilitation from at least one discipline due to:;ADL impairment resulting in caregiver dependence;anticipate community discharge/previous community dweller;decline in functional status requiring daily skilled care;high level balance deficits;intact cognition Anticipated Discharge Needs: Physical Assist at Home Physical Assist at Home for: Transportation;Shopping OT 6 Clicks Score: 19 Precautions/Activity Restrictions: Fall Risk Precaution/Activity Restriction Comments: pt is legally blind and deconditioned from recent illness. Current Hospital Course: Recent Rx for diverticulosis. Reason for Hospital Admission: pt was discharged home from [facility] on 05/15/21 and was admitted to [facility] that same day due to pt's inability to get out of a chair at home. [facility] PT had recommended SNF, which pt declined. Relevant Past Medical History: fibromyalgia, HTN, PUD, depression Response to Therapy Interventions: Good participation in activities Continue skilled needs due to: Functional impairment Occupational Therapy Problem List: Education Deficit;Safety Deficits;Impaired Self Care;Decreased Strength;Functional Mobility Impairment;Balance Impaired Cognition/Communication Deficits Responsiveness: Alert, Awake Follows Commands: 2-step Commands Treatment Interventions: Education;Self Care / Home Management;Strengthenin g;Functional Mobility Training;Balance Training Plan for next visit: Bathing training, Bed mobility, Chair/commode transfer training, Dressing training, Grooming training, Sit to stand transfers, Standing balance, Standing tolerance, Toileting instruction Home Environment Patient Lives With: Self/Alone Assistance Available: multimedia programmer (privately pay for help 1x/wk) Entry To Home: Elevator Number Of Stairs To Bed/Bath: 0 Tub/Shower Type: tub shower Laundry: in apartment Equipment Owned: Cane;Wheeled Walker;Rollator;Grab Bars-Toilet;Grab Bars-Shower;Shower Chair;Commode-Raised Prior Functional Level: Required Assistance Assistance Required With: Transportation;Shopping Prior Functional Level Comments: Independent cane josue. pt says she manages all her ADLs at home and relies on her friend to take her shopping and to appointments 1x/wk. Patient Report: "I didn't sleep much last night." CURRENT FUNCTIONAL STATUS: Most recent performance Current Activities of Daily Living Assist Level Additional Information Feeding Set Up (based on clinical judgement) Grooming Set Up;Contact Guard Assistance;Additional Information standing sinkside with RW; CGA for balance, pt noted to intermitently lean on wall or counter through elbows for support with bimanual tasks; cued to stand square at sink and push RW all the way up to sink rather than park to the side Bathing Upper Body Set Up;Stand By Assistance (based on clinical judgement) Bathing Lower Body Moderate Assistance;Additional Information sitting EOB; assist for distal portion of LE Dressing Upper Body Minimal Assistance;Additional Information gown change; assist with initiating donning of gown d/t diminished vision Dressing Lower Body Additional Information;Maximal Assistance sitting EOB; assist with distal reach for doffing/donning socks Toileting Minimal Assistance;Additional Information external female catheter, pt managed anterior perineal care around cath while in seated position, OT assist with posterior portion while standing with RW Instrumental Activities of Daily Living Assist Level Additional Information Meal/Beverage Prep Cleaning Laundry Medication Management with Strategies Functional Mobility Assist Level Additional Information Rolling Supine to Sit Minimal Assistance;Additional Information HOB elevated 30*, cued for sequenicng, increased time Sit to Supine Moderate Assistance;Additional Information cued for orientation into bed, assist with LE, pt with good UB mgmt Scooting Moderate Assistance;Additional Information EOB: assist with sliding hips for with pad facilitated, cued for lateral wt shifting, but pt with difficulties; supine: SBA with cues to flex knees and push through elbows via trendlenberg Sit to Stand Minimal Assistance;Additional Information multiple trials, initially from low bed position pt with poor initiation; bed slightly e (more content not included)... Normal [facility] HISTORY PHYSICALon HISTORY PHYSICAL HNO ID: [id number] Author: Baldo Whitney MD Service: General Internal Medicine Author Type: Physician Type: HANDP Filed: 05/17/2021 2:58 PM Note Text: HISTORY AND PHYSICAL EXAMINATION - INTERNAL MEDICINE PATIENT NAME: Yaa Ward SERVICE DATE: 2021 PRIMARY CARE PHYSICIAN: Delisa Estrella, ASSESSMENT AND PLAN Malaise and fatigue -PT/OT Diverticulitis -c/w cipro and flagyl till 05/22 HTN CAD HPL GERD SUBJECTIVE CHIEF COMPLAINT: Fatigue HISTORY OF PRESENT ILLNESS: Yaa Ward is an 81 year old female who presents with fatigue and weakness. Patient was recently admitted to [facility] with diverticulitis. Therapy recommended rehab at discharge but patient preferred to be discharged home. Patient reports she was too tired and weak at home and would like to go to rehab before returning home now. Denies chest pain, shortness of breath, nausea, vomiting, diarrhea, constipation or any symptoms. 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 Huerta - Hypercholesterolemia - Lumbar spinal stenosis - Obesity - Osteoarthritis - Rheumatic fever without heart involvement As a child, joint pain even as a child fallen arches - Uterine fibroid - UTI (urinary tract infection) - Vitamin D deficiency FAMILY HISTORY Problem Relation Age of Onset - Glaucoma Father - Arthritis Father - Macular Degen Father - Colon Cancer Father - Ischemic Heart Disease Father - other (Other) Father - Glaucoma Mother - Arthritis Mother was in bed for 6 years - Macular Degen Mother - Colon Cancer Mother - Strabismus Other cousin - Macular Degen Maternal Aunt - Macular Degen Paternal Aunt PAST SURGICAL HISTORY Procedure Laterality Date - APPENDECTOMY - EXTENSIVE FOOT SURGERY Right foot bunion, hammer toes bilaterally - PAST SURGICAL HISTORY OF 07/16/2012 colonoscopy, follow up in two years according to report - REMOVAL OF OVARY(S) same time as hysterectomy - TONSILLECTOMY HX 194 - TOTAL ABDOM HYSTERECTOMY 1990 dysfunctional uterine bleeding - TOTAL HIP REPLACEMENT february 2012 Hip replacement, total left - TOTAL KNEE REPLACEMENT 05/25/05 left total knee arthroplasty - TOTAL KNEE REPLACEMENT 2014 right knee Social History Tobacco Use - Smoking status: Never Smoker - Smokeless tobacco: Never Used - Tobacco comment: did try when she was younger Vaping Use - Vaping Use: Never used Substance Use Topics - Alcohol use: Not Currently Comment: occasional, 6 glasses of wine per year - Drug use: No MEDICATIONS: Prescriptions prior to admission: [DISCONTINUED] sodium chloride 0.9 % (flush) 10 mL (BD POSIFLUSH), 10 mL, INTRAVENOUS, DIRECTED PRN, Gen Hickman, DO acetaminophen (TYLENOL) 325 mg tablet, Take 2 tablets by mouth every 8 hours as needed for pain., Disp: 30 tablet, Rfl: 0, Unknown at Unknown time ciprofloxacin HCl (CIPRO) 500 mg tablet, Take 1 tablet by mouth twice daily for 7 days., Disp: 14 tablet, Rfl: 0, Unknown at Unknown time metroNIDAZOLE (FLAGYL) 250 mg tablet, Take 1 tablet by mouth four times daily for 7 days., Disp: 28 tablet, Rfl: 0, Unknown at Unknown time pantoprazole DR (PROTONIX) 40 mg tablet, TAKE ONE TABLET BY MOUTH ONCE A DAY, Disp: 30 tablet, Rfl: 2, 05/15/2021 at Unknown time Fluticasone Propionate (CUTIVATE) 0.05 % cream, Apply to affected area as needed. Apply as directed to affected area twice daily, Disp: 30 g, Rfl: 1, Unknown at Unknown time hydrOXYzine HCl (ATARAX) 10 mg tablet, Take 1 tablet by mouth three times daily as needed for anxiety., Disp: 20 tablet, Rfl: 0, Unknown at Unknown time aspirin-caffeine (BACK AND BODY PAIN RELIEVER) 500-32.5 mg tab, Take by mouth every 6 hours as needed., Disp: , Rfl: , Unknown at Unknown time sertraline (ZOLOFT) 100 mg tablet, Take 1 tablet by mouth once daily., Disp: 90 tablet, Rfl: 2, 05/15/2021 at Unknown time ezetimibe (ZETIA) 10 mg tablet, Take 1 tablet by mouth once daily., Disp: 90 tablet, Rfl: 2, 05/15/2021 at Unknown time metoprolol succinate ER (TOPROL XL) 50 mg 24 hr tablet, Take 1 tablet by mouth once daily., Disp: 90 tablet, Rfl: 2, 05/15/2021 at Unknown time potassium chloride (KLOR-CON 10) 10 mEq tablet, Take 1 tablet by mouth twice daily., Disp: 180 tablet, Rfl: 2, 05/15/2021 at Unknown time docusate sodium (COLACE) 100 mg capsule, Take 1 capsule by mouth twice daily., Disp: , Rfl: , 05/15/2021 at Unknown time Cholecalciferol, Vitamin D3, (VITAMIN D) 1,000 unit Tab, (more content not included)... [facility] NURSING PROGon 2021 NURSING PROG HNO ID: [id number] Author: Juliana Arenas RN Service: ? Author Type: Registered Nurse Type: Nursing Progress Note Filed: 2021 7:11 PM Note Text: Nursing Progress Note Patient Name: Yaa Ward Patient Location: [place] Daily Note: 191 received report, pt resting in bed, assuming care, safety checks complete. This note was completed by: Juliana Arenas [facility] NURSING PROG O ID: [id number] Author: Ina Ho RN Service: Nursing Author Type: Registered Nurse Type: Nursing Progress Note Filed: 2021 2:53 PM Note Text: Nursing Progress Note Patient Name: Yaa Ward Patient Location: [place]/ [place] Daily Note: 0730 Assumed care of pt, bed locked in low position, call light within reach, rec'd report from Meri LEONG, pt sleeping at this time, auto trays Regular diet 0840 Assessment complete, see NPR [address] Whitney, pt very depressed about losing her independence and has cried multiple times today This note was completed by: Ina Ho [facility] THERAPY NTon 2021 THERAPY NT HNO ID: [id number] Author: Dru Bowens, PT Service: Physical Therapy Author Type: Physical Therapist Type: Therapy (PT/OT/Speech/Resp) Filed: 2021 10:38 AM Note Text: Physical Therapy Evaluation SERVICE DATE: 2021 SERVICE TIME: 958 ROOM: [place] [address] Recommended Discharge Disposition: Subacute/SNF Recommended Discharge Disposition Comments: Failed discharge to home. pt requires daily PT for strengthening and functional mobility training to facilitate return to safe mobility at home. Recommended Discharge Disposition Due to: ADL impairment resulting in caregiver dependence;Patient requires daily, facility-based rehabilitation from at least one discipline due to:;anticipate community discharge/previous community dweller;decline in functional status requiring daily skilled care Anticipated Discharge Needs: Physical Assist at Home Physical Assist at Home for: Transportation;Shopping ;Cleaning;Laundry;Medic ation Management Recommended Discharge Equipment: To Be Determined PT 6 Clicks Score: 16 Precautions/Activity Restrictions: Fall Risk Precaution/Activity Restriction Comments: pt is legally blind and deconditioned from recent illness. Current Hospital Course: Recent Rx for diverticulosis. Reason for Hospital Admission: pt was discharged home from [facility] on 05/15/21 and was admitted to [facility] that same day due to pt's inability to get out of a chair at home. [facility] PT had recommended SNF, which pt declined. Relevant Past Medical History: fibromyalgia, HTN, PUD, depression Response to Therapy Interventions: Good participation in activities, Low activity tolerance, Requires additional time to complete activities Continue skilled needs due to: Functional mobility/skill impairments Physical Therapy Problem List: Education Deficit;Functional Mobility Impairment;Decreased Strength Plan for next visit: Bed mobility, Chair transfer training, Gait training, Pre-gait activities, Standing Tolerance, Walker Training Home Environment Patient Lives With: Self/Alone Assistance Available: PRN (friend) Entry To Home: Elevator Number Of Stairs To Bed/Bath: 0 Tub/Shower Type: tub shower Laundry: in apartment Equipment Owned: Cane;Wheeled Walker;Rollator;Grab Bars-Toilet;Grab Bars-Shower;Shower Chair;Commode-Raised Prior Functional Level: Required Assistance Assistance Required With: Transportation;Shopping Prior Functional Level Comments: Laurie valdovinos pt says she manages all her ADLs at home and relies on her friend to take her shopping and to appointments. Patient Report: pt consented to PT Rx and is open to going to SNF for rehab now. CURRENT FUNCTIONAL STATUS: Most recent performance Current Functional Mobility Assist Level Additional Information Rolling Minimal Assistance Supine to Sit Minimal Assistance;Additional Information extra-time and effort to complete task Sit to Supine Scooting Sit to Stand Minimal Assistance Stand to Sit Minimal Assistance (poor essentric control) Bed to Chair Minimal Assistance Bed To Chair Transfer Type: Stepping Bed To Chair Transfer Equipment: Wheeled Walker Toilet/Commode Gait Minimal Assistance Gait Device: Wheeled Walker Gait Distance (feet): 24 Stairs Curb Step Car Transfer Blank diana indicate activity not attempted Gait Deviations Right Lower Extremity: Foot clearance decreased;Heel strike during initial stance decreased Gait Deviations Left Lower Extremity: Foot clearance decreased;Heel strike during initial stance decreased General Deviations/Observations : Wide base of support;Jennifer decreased;Visual scanning/environmental awareness decreased (verbal cuing for direction due to blindness.) Range of Motion: WFL (Passively) Strength: Upper Extremity Comments;Lower Extremity Comments Right Upper Extremity Strength Comments: Shoulder elevation 2/5. Distal 3+/5 to 4-/5. Left Upper Extremity Strength Comments: 4-/5 Right Lower Extremity Strength Comments: WFL except ankle DF 3/5. Left Lower Extremity Strength Comments: WFL except ankle DF 3-/5, Gt toe DF 1/5. Balance: Static Sitting;Dynamic Sitting;Static Standing;Dynamic Standing Static Sitting Balance: Normal Patient able to maintain steady balance without handhold support Dynamic Sitting Balance: Good Patient accepts moderate challenge, able to maintain balance while picking up object off floor Static Standing Balance: (Min assist with r walker) (Min assist with r walker) Dynamic Standing Balance: (Min assist with r walker) (Min assist with r walker) Activity Tolerance: Sitting Activity Sitting Activity: EOB Sitting Activity Tolerance (in minutes): 10 (then up to reciner) JH-HLM: 6: Walk 10 steps or more Learning/Educational Needs: Discharge Plan;Functional Activities/Mobility;Saf ety Goals for Plan of Care: Patient /Caregiver Goals: Go Home Goals: Patient will demonstrate progress t (more content not included)... Normal [facility] Basic Metabolic Panlon 05-15 Anion gap [Moles/Vol] 14 mmol/L Normal 9-18 [facility] Calcium [Mass/Vol] 9.0 mg/dL Normal 8.5-10.2 [facility] Chloride [Moles/Vol] 100 mmol/L Normal 97-105 [facility] CO2 [Moles/Vol] 22 mmol/L Normal 22-33 [facility] Creatinine [Mass/Vol] 0.80 mg/dL Normal 0.58-0.96 [facility] eGFR- Amer. >60 Normal [facility] eGFR-All Other Races >60 Normal [facility] Comment on above: Result Comment: eGFR (Estimated GFR) Units of measure: mL/min/1.73 meters squared eGFR is derived from the reexpressed MDRD Study equation using the following parameters: serum creatinine, age, gender and race. The creatinine assay has been calibrated to be traceable to IDMS. An eGFR <60 mL/min/1.73m2 for >3 months is consistent with chronic kidney disease. Refer to KDOQI guidelines for clinical interpretation. In patients with unstable renal function, e.g. those with acute kidney injury, the eGFR may not accurately reflect actual GFR. Glucose [Mass/Vol] 85 mg/dL Normal 74-99 [facility] Potassium [Moles/Vol] 3.6 mmol/L Low 3.7-5.1 [facility] Sodium [Moles/Vol] 136 mmol/L Normal 136-144 [facility] Urea nitrogen [Mass/Vol] 15 mg/dL Normal 7-21 [facility] CBCon 05-15-2021 Absolute nRBC <0.01 Normal <0.01 [facility] Erythrocyte distribution width (RBC) [Ratio] 14.7 % Normal 11.5-15.0 [facility] Hematocrit (Bld) [Volume fraction] 41.5 % Normal 36.0-46.0 [facility] Hemoglobin (Bld) [Mass/Vol] 13.6 g/dL Normal 11.5-15.5 [facility] MCH 29.1 pG Normal 26.0-34.0 [facility] MCHC (RBC) [Mass/Vol] 32.8 g/dL Normal 30.5-36.0 [facility] MCV (RBC) [Entitic vol] 88.7 fL Normal 80.0-100.0 [facility] Platelet mean volume (Bld) [Entitic vol] 9.3 fL Normal 9.0-12.7 [facility] Platelets (Bld) [#/Vol] 169 10*3/uL Normal 150-400 [facility] RBC (Bld) [#/Vol] 4.68 10*6/uL Normal 3.90-5.20 [facility] WBC (Bld) [#/Vol] 7.42 10*3/uL Normal 3.70-11.00 [facility] CNDSon 05-15-2021 CN HNO ID: [id number] Author: Mika Borjas MD Service: Hospital Medicine Author Type: Physician Type: Discharge Summary Filed: 05/15/2021 11:58 AM Note Text: DISCHARGE SUMMARY PATIENT NAME: Yaa Ward ADMISSION DATE: 05/11/2021 DISCHARGE DATE:05/15/2021 ATTENDING PHYSICIAN: Mika Borjas MD Code Status: Not on file Highest Readmission Risk Score: 15 The 30 day readmissions risk score is derived from an internally validated risk model which evaluates patient level characteristics, utilization history, medication orders and lab results up until the day of discharge. Patients with a score of 40 or above are considered highest risk for readmission. Specific patient level drivers will be listed at the bottom of the summary. CONSULTING TEAMS DURING HOSPITALIZATION: None Treatment Team: Attending Provider: Mika Borjas MD Primary Service: [place] [address] REASON FOR HOSPITALIZATION: Abdominal pain and general weakness DIAGNOSIS: Active Problems: Diverticulitis POA: Yes Obesity, Class II, BMI 35-39.9 POA: Unknown Resolved Problems: * No resolved hospital problems. * OPERATIONS DURING HOSPITALIZATION: None PROCEDURES DURING HOSPITALIZATION: No procedures performed HOSPITAL COURSE: 80 year old female with history of hypertension, peptic ulcer disease, fibromyalgia, depression and anxiety and history of chronic disease presented to the ED with abdominal pain and feeling generalized weakness.She was admitted for acute diverticulitis. Chest x-ray negative for pneumonia. ?CT abdomen pelvis with contrast showed early or mild diverticulitis involving the proximal sigmoid without any abscess perforation or obstruction. ? CT brain was negative for acute intracranial abnormality. ? ? Acute Diverticulitis ??CT abdomen pelvis showed mild diverticulitis without abscess or perforation. ??Last colonoscopy 2019- mild diverticulosis Patient tolerated full liquid diet, currently advanced to soft diet and tolerating. Zofran for nausea as needed Received IV fluids initially Continued on Cipro and Flagyl -outpatient GI f/u in 6 weeks- was a patient of Dr Huerta, will need new GI provider- refer to Dr Cullen ? Hypokalemia: Received potassium supplementation and monitor BMP ? History of CAD Essential hypertension Hyperlipidemia -no chest pain or SOB. -C/w home ZETIA, [place] xl. -Hydrochlorothiazide and lisinopril restarted at discharge ? Peptic ulcer disease PPI PO BID TUMS PRN ? Anxiety disorder Continued on Zoloft and Atarax PRN ? ? ?Right wrist pain: ?x-ray of the wrist showed degenerative changes with widening of the scapholunate space suggesting injury to the scapholunate ligament so she was given wrist splint. Patient denied any fall ? History of fibromyalgia; Analgesics as needed ? Social PT/OT- recommended SNF, lives alone, uses walker at home, has kids in town but does not like to bother them Patient declined SNF rehab, was mobilized on the floor with assistance, and appears stable for discharge home with home health care. Patient is advised to complete a course of antibiotic and to follow-up with primary care physician and gastroenterology as outpatient Transitions of Care Critical Issues: CHURCH MEDICATION CHANGES: Complete a course of antibiotic LABS AND PROCEDURES PENDING AT DISCHARGE: No pending results. PATIENT CONDITION AT DISCHARGE: Stable DISCHARGE DISPOSITION: Home with Home Health Care Physical exam Awake and alert, obese female, no distress Supple neck , no JVD Mucosa is moist Normal heart sounds, regular rhythm Lungs sound clear, no wheeze Abdomen is soft and non tender, bowel sounds heard No leg edema INFORMATION PROVIDED TO PATIENT: As per discharge instruction WOUND/SURGICAL SITE CARE: None DIET: Resume pre-hospital diet ACTIVITY: Resume pre-hospital activity ALLERGIES Allergen Reactions - Xyozcck-Vrt-Hic Red* Other: See Comments Lethargic, and muscle and joint pain - Clindamycin Rash, Itching - Morphine GI Upset, Vomiting - Penicillins Rash - Percocet [Oxycodone* Intolerance - Sulfa (Sulfonamide * Other: See Comments thrush DISCHARGE MEDICATION: Current Discharge Medication List START taking these medications acetaminophen (TYLENOL) 650 mg Take 650 mg by mouth every 8 hours as needed for pain. Qty: 30 tablet Refills: 0 ciprofloxacin HCl (CIPRO) 500 mg Take 500 mg by mouth twice daily. Qty: 14 tablet Refills: 0 metroNIDAZOLE (FLAGYL) 250 mg Take 250 mg by mouth four times daily. 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 Apply as directed to affected area twice daily Qty: 30 g Refills: 1 hydrOXYz (more content not included)... [facility] NURSING PROGon 05-15-2021 NURSING PROG HNO ID: [id number] Author: Meri Ye RN Service: Nursing Author Type: Registered Nurse Type: Nursing Progress Note Filed: 05/15/2021 11:19 PM Note Text: Nursing Progress Note Patient Name: Yaa Ward Patient Location: [place] [address] [address] Transfer Note: Patient transferred into [facility] in stable condition. Actions taken: Patient belongings with patient. Pt oriented to room and call light. Pt is legally blind. VSS, pt given bed bath, yellow fall socks put on. Dr. Devonte keane for admission orders. 0: Pt given evening meds and boxed lunch. No other needs at this time. This note was completed by: Meri Ye [facility] Basic Metabolic Panlon 05-14 Anion gap [Moles/Vol] 15 mmol/L Normal 9-18 [facility] Calcium [Mass/Vol] 8.8 mg/dL Normal 8.5-10.2 [facility] Chloride [Moles/Vol] 101 mmol/L Normal 97-105 [facility] CO2 [Moles/Vol] 21 mmol/L Low 22-33 [facility] Creatinine [Mass/Vol] 0.80 mg/dL Normal 0.58-0.96 [facility] eGFR- Amer. >60 Normal [facility] eGFR-All Other Races >60 Normal [facility] Comment on above: Result Comment: eGFR (Estimated GFR) Units of measure: mL/min/1.73 meters squared eGFR is derived from the reexpressed MDRD Study equation using the following parameters: serum creatinine, age, gender and race. The creatinine assay has been calibrated to be traceable to IDMS. An eGFR <60 mL/min/1.73m2 for >3 months is consistent with chronic kidney disease. Refer to KDOQI guidelines for clinical interpretation. In patients with unstable renal function, e.g. those with acute kidney injury, the eGFR may not accurately reflect actual GFR. Glucose [Mass/Vol] 88 mg/dL Normal 74-99 [facility] Potassium [Moles/Vol] 3.6 mmol/L Low 3.7-5.1 [facility] Sodium [Moles/Vol] 137 mmol/L Normal 136-144 [facility] Urea nitrogen [Mass/Vol] 11 mg/dL Normal 7-21 [facility] CBCon 05-14-2021 Absolute nRBC <0.01 Normal <0.01 [facility] Erythrocyte distribution width (RBC) [Ratio] 14.6 % Normal 11.5-15.0 [facility] Hematocrit (Bld) [Volume fraction] 40.5 % Normal 36.0-46.0 [facility] Hemoglobin (Bld) [Mass/Vol] 13.3 g/dL Normal 11.5-15.5 [facility] MCH 29.4 pG Normal 26.0-34.0 [facility] MCHC (RBC) [Mass/Vol] 32.8 g/dL Normal 30.5-36.0 [facility] MCV (RBC) [Entitic vol] 89.6 fL Normal 80.0-100.0 H [facility] Platelet mean volume (Bld) [Entitic vol] 9.2 fL Normal 9.0-12.7 [facility] Platelets (Bld) [#/Vol] 155 10*3/uL Normal 150-400 [facility] Comment on above: Result Comment: Samp le checked for a clot. RBC (Bld) [#/Vol] 4.52 10*6/uL Normal 3.90-5.20 [facility] WBC (Bld) [#/Vol] 8.04 10*3/uL Normal 3.70-11.00 [facility] Basic Metabolic Panlon 05-13 Anion gap [Moles/Vol] 10 mmol/L Normal 9-18 [facility] Anion gap [Moles/Vol] 11 mmol/L Normal -18 [facility] Calcium [Mass/Vol] 8.7 mg/dL Normal 8.5-10.2 [facility] Calcium [Mass/Vol] 8.5 mg/dL Normal 8.5-10.2 [facility] Chloride [Moles/Vol] 102 mmol/L Normal 97-105 [facility] CO2 [Moles/Vol] 25 mmol/L Normal - [facility] CO2 [Moles/Vol] 23 mmol/L Normal - [facility] Creatinine [Mass/Vol] 0.83 mg/dL Normal 0.58-0.96 [facility] Creatinine [Mass/Vol] 0.84 mg/dL Normal 0.58-0.96 [facility] eGFR- Amer. >60 Normal [facility] eGFR-All Other Races >60 Normal [facility] Comment on above: Result Comment: eGFR (Estimated GFR) Units of measure: mL/min/1.73 meters squared eGFR is derived from the reexpressed MDRD Study equation using the following parameters: serum creatinine, age, gender and race. The creatinine assay has been calibrated to be traceable to IDMS. An eGFR <60 mL/min/1.73m2 for >3 months is consistent with chronic kidney disease. Refer to KDOQI guidelines for clinical interpretation. In patients with unstable renal function, e.g. those with acute kidney injury, the eGFR may not accurately reflect actual GFR. Glucose [Mass/Vol] 121 mg/dL High 74-99 [facility] Glucose [Mass/Vol] 123 mg/dL High 74-99 [facility] Potassium [Moles/Vol] 3.8 mmol/L Normal 3.7-5.1 [facility] Potassium [Moles/Vol] 3.7 mmol/L Normal 3.7-5.1 [facility] Sodium [Moles/Vol] 137 mmol/L Normal 136-144 [facility] Sodium [Moles/Vol] 136 mmol/L Normal 136-144 [facility] Urea nitrogen [Mass/Vol] 10 mg/dL Normal 7-21 [facility] CASE MANAGEMon 05-13-2021 CASE MANAGEM HNO ID: [id number] Author: Tejal Maynard Service: ? Author Type: ? Type: Care Mgt Progress Note Filed: 05/13/2021 1:24 PM Note Text: CARE MANAGEMENT PROGRESS NOTE SERVICE DATE: 05/13/2021 SERVICE TIME: 1:23 PM LOS: 1 day Delivered and explained AD paperwork to patient. Patient prefers to complete at home. SIGNATURE: Tejal Maynard PATIENT NAME: Yaa Ward DATE: May 13, 2021 TIME: 1:23 PM PAGER/CONTACT #: [phone] Normal [facility] CBCon 05-13-2021 Absolute nRBC <0.01 Normal <0.01 [facility] Erythrocyte distribution width (RBC) [Ratio] 14.6 % Normal 11.5-15.0 [facility] Hematocrit (Bld) [Volume fraction] 37.6 % Normal 36.0-46.0 [facility] Hemoglobin (Bld) [Mass/Vol] 12.4 g/dL Normal 11.5-15.5 [facility] MCH 29.8 pG Normal 26.0-34.0 [facility] MCHC (RBC) [Mass/Vol] 33.0 g/dL Normal 30.5-36.0 [facility] MCV (RBC) [Entitic vol] 90.4 fL Normal 80.0-100.0 [facility] Platelet mean volume (Bld) [Entitic vol] 9.2 fL Normal 9.0-12.7 [facility] Platelets (Bld) [#/Vol] 134 10*3/uL Low 150-400 [facility] RBC (Bld) [#/Vol] 4.16 10*6/uL Normal 3.90-5.20 [facility] WBC (Bld) [#/Vol] 7.46 10*3/uL Normal 3.70-11.00 [facility] NURSING PROGon 05-13-2021 NURSING PROG HNO ID: [id number] Author: Rosalba Colbert RN Service: ? Author Type: Registered Nurse Type: Nursing Progress Note Filed: 05/13/2021 8:17 AM Note Text: Daily Note: 0730: Report received from previous shift. See assessment as documented. Patient denies any SOB, chest pain or discomfort at this time. Call light and possesions within reach, bed locked in lowest position,and bed alarm on and functioning. Patient AANDO x 3. This note was completed by: Rosalba Colbert RN Normal [facility] THERAPY NTon 05-13-2021 THERAPY NT HNO ID: [id number] Author: Elaine Salinas PT Service: Physical Therapy Author Type: Physical Therapist Type: Therapy (PT/OT/Speech/Resp) Filed: 05/13/2021 11:53 AM Note Text: Physical Therapy Evaluation SERVICE DATE: 05/13/2021 SERVICE TIME: 1025 to 1105 ROOM: [place] [address] Recommended Discharge Disposition: Subacute/SNF Recommended Discharge Disposition Comments: pending progression in functional mobility. Would benefit from SNF for daily therapy toimprove functional mobility prior to returning home with pt has limited/no assist Recommended Discharge Disposition Due to: ADL impairment resulting in caregiver dependence;Patient requires daily, facility-based rehabilitation from at least one discipline due to: PT 6 Clicks Score: 11 Precautions/Activity Restrictions: Fall Risk Current Hospital Course: admit 05/11 with abdominal pain and weakness Reason for Hospital Admission: abd pain and weakness Relevant Past Medical History: fibromyalgia, HTN, PUD, depression Response to Therapy Interventions: Pain, Requires encouragement to complete activities, Requires additional time to complete activities, Slow progression with functional activities/skills Continue skilled needs due to: Functional mobility/skill impairments, Safety concerns Physical Therapy Problem List: Pain;Safety Deficits;Decreased Range Of Motion;Decreased Activity Tolerance;Decreased Strength;Functional Mobility Impairment;Impaired Self Care Treatment Interventions: Education;Strengthening ;Joint Mobility;Functional Mobility Training;Balance Training Plan for next visit: Bed mobility, Chair transfer training, Fall prevention, Exercise instruction/handout, Pre-gait activities, Sit to Stand Transfers, Standing Balance, Standing Tolerance Home Environment Patient Lives With: Self/Alone Assistance Available: PRN Entry To Home: Elevator Tub/Shower Type: tub shower Laundry: in apartment Equipment Owned: Cane;Wheeled Walker;Rollator (getting rollator from friend) Prior Functional Level: Within Functional Limits Prior Functional Level Comments: pt states IND HANGER but required extra time for transfers. States that she has friends that could help from time to time but doesn't want to be a burden Patient Report: "I have fibromyalgia. It hurts too much to move" CURRENT FUNCTIONAL STATUS: Most recent performance Current Functional Mobility Assist Level Additional Information Rolling Moderate Assistance Supine to Sit Sit to Supine Scooting Sit to Stand Stand to Sit Bed to Chair Toilet/Commode Gait Stairs Curb Step Car Transfer Blank diana indicate activity not attempted JH-HLM: 2: Bed activities / dependent transfer Learning/Educational Needs: Discharge Plan;Functional Activities/Mobility;Avi n of Care;Rehabilitation Techniques and Procedures;Safety Goals for Plan of Care: Patient /Caregiver Goals: Go Home Goals: Patient will demonstrate understanding of importance of mobility during hospital stay and resolve all functional needs identified.;Patient will demonstrate progress with functional mobility to allow safe discharge to home with available support and/or physical assistance.;Patient will demonstrate progress to optimize functional mobility, maximize activity tolerance and endurance to maximize function upon discharge. Able to perform HEP with: Stand By Assistance Rolling with: Contact Guard Assistance Transfer supine to/from sit with: Contact Guard Assistance Transfer sit to/from stand with: Contact Guard Assistance Ambulate with: Contact Guard Assistance Distance: 150 Device: Wheeled Walker Transfer: bed >< chair with CGA and FWW Rehab Potential: Poor Patient will be discontinued from Physical Therapy when no further skilled needs are identified in this setting. PLAN: PT Frequency: 3 times per week Plan of Care developed with: Patient TREATMENT INTERVENTIONS: Therapy Diagnosis: Reduced mobility-other;Muscle Weakness (generalized);Decreased activities of daily living (ADL);Unsteadiness on feet;Abnormalities of gait and mobility-other;General symptoms and signs-other Interventions Provided: Evaluation;Therapeutic Activity (72866);Therapeutic Exercise (49239) $ Evaluation-Low (57927) Billed Units: 1 unit Therapeutic Exercise (93224) Treatment Minutes: 15 $ Therapeutic Exercise (39367) Billed Units: 1 unit Verbally review bed activities Therapeutic Activity (32095) Treatment Minutes: 10 $ Therapeutic Activity (20009) Billed Units: 1 unit Training AND education provided in: Benefits of in-hospital mobility, Discharge planning, Pain Neuroscience, Patient Exercise/Therapy program support needs, Role of Physical Therapy The following therapeutic skills were used: Activity dosing, Cues for sequencing/proper technique for activity, Cuing tactile, Cuing verbal, Cuing visual Total Timed Code Treatment Minutes: 25 Total Treatment Time (minutes): 40 Please see d (more content not included)... [facility] ALLIED HEALTHon 05-12-2021 ALLIED HEALTH HNO ID: [id number] Author: Mariaelena Lozano [facility] Service: Pharmacy Author Type: Pharmacist Type: Allied Health Filed: 05/12/2021 1:31 AM Note Text: PHARMACY RENAL DOSING NOTE Patient Name: Yaa Ward Date of Consult: 05/12/2021 Time of Contact: 1:29 AM Baseline Serum Creatinine (last 30 day): 1.1 Estimated Creatinine Clearance: Serum creatinine: 0.8 mg/dL 05/11/21 161 Estimated creatinine clearance: 52 ml/min RECOMMENDATIONS/PLAN: Date Drug Dose Interval Drug Indication Assessment/Plan 05/12/2021 Cipro 400 mg IV q12h diverticulitis Substitute to levaquin 750 mg IV q24h BMP: Recent Labs 05/11/21 1616 03/28/21 1214 11/10/20 1030 GLUC 117* 94 95 NA 140 140 140 K 3.6* 4.4 3.9 CHLOR 102 101 102 CO2 25 25 23 ANION 13 14 15 BUN 13 25* 29* CREAT 0.80 1.10* 1.00* A pharmacist will monitor the creatinine clearance daily and adjust the doses according to changes in clinical status. Mariaelena Lozano [facility] Pharmacy extension [phone] [facility] Basic Metabolic Panlon 05-12 Anion gap [Moles/Vol] 14 mmol/L Normal 9-18 [facility] Calcium [Mass/Vol] 8.8 mg/dL Normal 8.5-10.2 [facility] Chloride [Moles/Vol] 99 mmol/L Normal 97-105 [facility] CO2 [Moles/Vol] 23 mmol/L Normal 22-33 [facility] Creatinine [Mass/Vol] 0.83 mg/dL Normal 0.58-0.96 [facility] eGFR- Amer. >60 Normal [facility] eGFR-All Other Races >60 Normal [facility] Comment on above: Result Comment: eGFR (Estimated GFR) Units of measure: mL/min/1.73 meters squared eGFR is derived from the reexpressed MDRD Study equation using the following parameters: serum creatinine, age, gender and race. The creatinine assay has been calibrated to be traceable to IDMS. An eGFR <60 mL/min/1.73m2 for >3 months is consistent with chronic kidney disease. Refer to KDOQI guidelines for clinical interpretation. In patients with unstable renal function, e.g. those with acute kidney injury, the eGFR may not accurately reflect actual GFR. Glucose [Mass/Vol] 117 mg/dL High 74-99 [facility] Potassium [Moles/Vol] 3.0 mmol/L Low 3.7-5.1 [facility] Sodium [Moles/Vol] 136 mmol/L Normal 136-144 [facility] Urea nitrogen [Mass/Vol] 12 mg/dL Normal 7-21 [facility] CBCon 05-12-2021 Absolute nRBC <0.01 Normal <0.01 [facility] Erythrocyte distribution width (RBC) [Ratio] 14.9 % Normal 11.5-15.0 [facility] Hematocrit (Bld) [Volume fraction] 38.3 % Normal 36.0-46.0 [facility] Hemoglobin (Bld) [Mass/Vol] 12.8 g/dL Normal 11.5-15.5 [facility] MCH 30.0 pG Normal 26.0-34.0 [facility] MCHC (RBC) [Mass/Vol] 33.4 g/dL Normal 30.5-36.0 [facility] MCV (RBC) [Entitic vol] 89.9 fL Normal 80.0-100.0 [facility] Platelet mean volume (Bld) [Entitic vol] 9.1 fL Normal 9.0-12.7 [facility] Platelets (Bld) [#/Vol] 136 10*3/uL Low 150-400 [facility] RBC (Bld) [#/Vol] 4.26 10*6/uL Normal 3.90-5.20 [facility] WBC (Bld) [#/Vol] 6.43 10*3/uL Normal 3.70-11.00 [facility] HISTORY PHYSICALon HISTORY PHYSICAL HNO ID: [id number] Author: Charline Salcedo MD Service: Hospital Medicine Author Type: Physician Type: HANDP Filed: 05/12/2021 1:54 AM Note Text: DEPARTMENT OF HOSPITAL MEDICINE HISTORY AND PHYSICAL EXAM SERVICE DATE: 05/12/2021 Code Status: Not on file SERVICE TIME: 1:40 AM Primary Care Physician: Delisa Estrella, DO NIGHT AND WEEKEND COVERAGE: [facility] COVERAGE: Patient admitted to [facility] From 0700 - 1630, please contact pager [phone] for patient issues. From 1630 - 0700, please contact the Night Hospitalist on pager [phone] for patient issues. Subjective CHIEF COMPLAINT: Abdominal pain HPI: This is a 80 year old female with history of hypertension, peptic ulcer disease, fibromyalgia, depression and anxiety and history of chronic disease presented to the ED with abdominal pain and feeling generalized weakness. Patient reported feeling unwell for the last 4 days, also reported episodes of nausea and vomiting for 1 time yesterday. m reported left-sided abdominal pain she gave it 8 out of 10 before coming to the ED. Patient mentioned that she has been constipated recently. Otherwise patient denies any fever, chills, shortness of breath, dizziness or any other symptoms. Patient presented to the ED at [facility] : her vital signs afebrile and hemodynamically stable. CMP done showed normal LFTs, BMP showed potassium 3.6 otherwise unremarkable. Lipase was normal, CBC within normal limits. Chest x-ray negative for pneumonia. CT abdomen pelvis with contrast showed early or mild diverticulitis involving the proximal sigmoid: No evidence of abscess perforation or obstruction. CT brain was negative for acute intracranial abnormality. In the ED patient reported right wrist pain so she had x-ray of the wrist showed degenerative changes with widening of the scapholunate space suggesting injury to the scapholunate ligament so she was given wrist splint. Started on cipro and flagyl. Transferred to for upper level of care. 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 Huerta - Hypercholesterolemia - Lumbar spinal stenosis - Obesity - Osteoarthritis - Rheumatic fever without heart involvement As a child, joint pain even as a child fallen arches - Uterine fibroid - UTI (urinary tract infection) - Vitamin D deficiency PAST SURGICAL HISTORY Procedure Laterality Date - APPENDECTOMY - EXTENSIVE FOOT SURGERY Right foot bunion, hammer toes bilaterally - PAST SURGICAL HISTORY OF 07/16/2012 colonoscopy, follow up in two years according to report - REMOVAL OF OVARY(S) same time as hysterectomy - TONSILLECTOMY HX 1943 - TOTAL ABDOM HYSTERECTOMY 1990 dysfunctional uterine bleeding - TOTAL HIP REPLACEMENT february 2012 Hip replacement, total left - TOTAL KNEE REPLACEMENT 05/25/05 left total knee arthroplasty - TOTAL KNEE REPLACEMENT 2014 right knee FAMILY HISTORY Problem Relation Age of Onset - Glaucoma Father - Arthritis Father - Macular Degen Father - Colon Cancer Father - Ischemic Heart Disease Father - other (Other) Father - Glaucoma Mother - Arthritis Mother was in bed for 6 years - Macular Degen Mother - Colon Cancer Mother - Strabismus Other cousin - Macular Degen Maternal Aunt - Macular Degen Paternal Aunt Social History Tobacco Use - Smoking status: Never Smoker - Smokeless tobacco: Never Used - Tobacco comment: did try when she was younger Vaping Use - Vaping Use: Never used Substance Use Topics - Alcohol use: Not Currently Comment: occasional, 6 glasses of wine per year - Drug use: No PRIOR TO ADMISSION MEDICATIONS: perflutren lipid microspheres 1.3 mL in NaCl (PF) 0.9% 10 mL injection (DEFINITY), , INTRAVENOUS, DIRECTED PRN, Gen Hickman, DO sodium chloride 0.9 % (flush) 10 mL (BD POSIFLUSH), 10 mL, INTRAVENOUS, DIRECTED PRNGen, DO pantoprazole DR (PROTONIX) 40 mg tablet, TAKE ONE TABLET BY MOUTH ONCE A DAY, Disp: 30 tablet, Rfl: 2, 05/11/2021 Fluticasone Propionate (CUTIVATE) 0.05 % cream, Apply to affected area as needed. Apply as directed to affected area twice daily, Disp: 30 g, Rfl: 1, 05/11/2021 hydrOXYzine HCl (ATARAX) 10 mg tablet, Take 1 tablet by mouth three times daily as needed for anxiety., Disp: 20 tablet, Rfl: 0, 05/11/2021 aspirin-caffeine (BACK AND BODY PAIN RELIEVER) 500-32.5 mg tab, Take by mouth every 6 hours as needed., Disp: , Rfl: , 05/11/2021 sertraline (ZOLOFT) 100 mg tablet, Take 1 tablet by mouth once daily., Disp: 90 tablet, Rfl: 2, (more content not included)... [facility] NURSING PROGon 05-12-2021 NURSING PROG HNO ID: [id number] Author: Valerio Hernandez III, RN Service: Nursing Author Type: Registered Nurse Type: Nursing Progress Note Filed: 05/13/2021 4:40 AM Note Text: Nursing Progress Note Patient Name: Yaa Ward Patient Location: [place] [address] [address] Daily Note: 1930 - Patient handoff report completed and pt care assumed at this time. Pt awake, and alert to person, place, and time. Belongings at bedside, bed locked and low, bed alarm on, and call light within reach. 2240 - Physical assessment completed at this time - assessment as charted. Pt denies DE LA CRUZ, SOB, CP, N/V, or N/T. Pt repositioned in bed. Medicated per eMAR. Safety maintained. Continue to monitor. 0030 - Hospitalist paged for pt's c/o 10/10 neck pain. Given one-time dose Tramadol. Continue to monitor. This note was completed by: Valerio Hernandez III [facility] NURSING PROG HNO ID: [id number] Author: Rosalba Colbert RN Service: ? Author Type: Registered Nurse Type: Nursing Progress Note Filed: 05/12/2021 8:23 AM Note Text: Daily Note: 0715: Report received from previous shift. See assessment as documented. Patient denies any SOB, chest pain or discomfort at this time. Call light and possesions within reach, bed locked in lowest position,and bed alarm on and functioning. Patient AANDO x 3. This note was completed by: Rosalba Colbert RN [facility] No Panel Informationon 03-28 [facility] CITRULLINE ANTIBODYon 2018 CITRULLINE ANTIBODY <1 Normal [facility] Comment on above: Result Comment: THE TEST FOR ANTIBODIES SPECIFIC FOR CYCLIC CITRULLINATED PEPTIDE (CCP) HAS SHOWN TO BE VALUABLE IN THE DIAGNOSIS OF RHEUMATOID ARTHRITIS. THE DIAGNOSTIC VALUE OF ANTIBODIES TO CCP IN JUVENILE RHEUMATOID ARTHRITIS PATIENTS HAS NOT BEEN DETERMINED. ANTIBODIES TO CENTROMERE OR SS-A AND MYELOMA IGG MAY BE REACTIVE IN THIS ASSAY. REF VALUES NEGATIVE < 3 U/ML POSITIVE >=3 U/ML Performed By: #### C ITAB #### [facility] [address] [place] [address] BILATERAL HAND; MIN 3 VIEWSo n 12-10-2018 BILATERAL HAND; MIN 3 VIEWS Patient Name: YAA WARD STUDY: BILATERAL HAND; MIN 3 VIEWS; BILATERAL WRIST COMPLT; MIN 3 VIEWS; 12/10/2018 5:10 pm INDICATION: bilateral hand pain; bilateral wrist pain, repeat for positioning.. COMPARISON: None ACCESSION NUMBER(S): [id number]; [id number] ORDERING CLINICIAN: JASON WILLETT FINDINGS: Three views left hand Three views right hand Three views left wrist Three views right wrist Advanced 1st carpometacarpal osteoarthritis bilaterally. Less advanced metacarpophalangeal and distal interphalangeal osteoarthritis seen, right greater than left. No acute fracture seen. The no osseous lesion identified. IMPRESSION: Osteoarthritis bilateral hands and wrists, greatest at the 1st carpometacarpal articulations. Electronically signed by: GUALBERTO REES MD Normal [facility] BILATERAL SHOULDER, CMPLT, M IN 2 VIEWSon 12-10-2018 BILATERAL SHOULDER, CMPLT, MIN 2 VIEWS Patient Name: YAA WARD STUDY: BILATERAL SHOULDER, CMPLT, MIN 2 VIEWS; 12/10/2018 5:10 pm INDICATION: bilateral shoulder pain, repeat for positioning.. COMPARISON: None ACCESSION NUMBER(S): [id number] ORDERING CLINICIAN: JASON WILLETT FINDINGS: Moderate glenohumeral and acromioclavicular osteoarthritis bilaterally. No fracture seen. No osseous lesion. 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 Electronically signed by: GUALBERTO REES MD Normal [facility] BILATERAL WRIST COMPLT; MIN 3 VIEWSon 12-10-2018 BILATERAL WRIST COMPLT; MIN 3 VIEWS Patient Name: YAA WARD STUDY: BILATERAL HAND; MIN 3 VIEWS; BILATERAL WRIST COMPLT; MIN 3 VIEWS; 12/10/2018 5:10 pm INDICATION: bilateral hand pain; bilateral wrist pain, repeat for positioning.. COMPARISON: None ACCESSION NUMBER(S): [id number]; [id number] ORDERING CLINICIAN: JASON WILLETT FINDINGS: Three views left hand Three views right hand Three views left wrist Three views right wrist Advanced 1st carpometacarpal osteoarthritis bilaterally. Less advanced metacarpophalangeal and distal interphalangeal osteoarthritis seen, right greater than left. No acute fracture seen. The no osseous lesion identified. IMPRESSION: Osteoarthritis bilateral hands and wrists, greatest at the 1st carpometacarpal articulations. Electronically signed by: GUALBERTO REES MD Normal [facility] C-REACTIVE PROTEINon 019 CRP mass conc 0.89 mg/dL Normal [facility] Comment on above: Result Comment: REF VALUE < 1.00 Performed By: #### C RP #### [facility] [address] [place] [address] CBCon 12-10-2018 Erythrocyte distribution width Ratio (RBC) 15.9 % High 11.5 - 14.5 [facility] Comment on above: Performed By: #### C BC #### [facility] [address] [place] [address] Hematocrit Volume Fraction (Bld) 45.2 % Normal 36.0 - 46.0 [facility] Comment on above: Performed By: #### C BC #### [facility] [address] [place] [address] Hemoglobin mass conc (Bld) 14.7 g/dL Normal 12.0 - 16.0 [facility] Comment on above: Performed By: #### C BC #### [facility] [address] [place] [address] MCHC mass conc (RBC) 32.5 g/dL Normal 32.0 - 36.0 [facility] Comment on above: Performed By: #### C BC #### [facility] [address] [place] [address] MCV Entitic volume (RBC) 90 fL Normal 80 - 100 [facility] Comment on above: Performed By: #### C BC #### [facility] [address] [place] [address] Nucleated RBC/100 WBC Ratio (Bld) 0.0 /100 WBC Normal 0.0-0.0 [facility] Comment on above: Performed By: #### C BC #### [facility] [address] [place] [address] Platelets #/vol (Bld) 190 10*3/uL Normal 150 - 450 [facility] Comment on above: Performed By: #### C BC #### [facility] [address] [place] [address] RBC #/vol (Bld) 5.02 x10E12/L Normal 4.00 - 5.20 [facility] Comment on above: Performed By: #### C BC #### [facility] [address] [place] [address] WBC #/vol (Bld) 8.3 10*3/uL Normal 4.4 - 11.3 [facility] Comment on above: Performed By: #### C BC #### [facility] [address] [place] [address] COMPREHENSIVE PANELon 2018 Albumin mass conc 4.3 g/dL Normal 3.4 - 5.0 [facility] Comment on above: Performed By: #### C MP #### [facility] [address] [place] [address] ALP enzyme act/vol 110 U/L Normal 33 - 136 [facility] Comment on above: Performed By: #### C MP #### [facility] [address] [place] [address] ALT enzyme act/vol 19 U/L Normal 7 - 45 [facility] Comment on above: Result Comment: Ellen ents treated with Sulfasalazine may generate falsely decreased results for ALT. Performed By: #### C MP #### [facility] [address] [place] [address] Anion gap molar conc 17 mmol/L Normal 10 - 20 [facility] Comment on above: Performed By: #### C MP #### [facility] [address] [place] [address] AST enzyme act/vol 24 U/L Normal 9 - 39 [facility] Comment on above: Performed By: #### C MP #### [facility] [address] [place] [address] Bilirubin mass conc 0.9 mg/dL Normal 0.0 - 1.2 [facility] Comment on above: Performed By: #### C MP #### [facility] [address] [place] [address] Calcium mass conc 9.8 mg/dL Normal 8.6 - 10.6 [facility] Comment on above: Performed By: #### C MP #### [facility] [address] [place] [address] Chloride molar conc 102 mmol/L Normal 98 - 107 [facility] Comment on above: Performed By: #### C MP #### [facility] [address] [place] [address] Creatinine mass conc 0.96 mg/dL Normal 0.50 - 1.05 [facility] Comment on above: Performed By: #### C MP #### [facility] [address] [place] [address] GFR- AM. 68 mL/min/1.73m2 Normal >60 [facility] Comment on above: Result Comment: CALC ULATIONS OF ESTIMATED GFR ARE PERFORMED USING THE MDRD STUDY EQUATION FOR THE IDMS-TRACEABLE CREATININE METHODS. CLIN CHEM 2007;53:766-72 Performed By: #### C MP #### [facility] [address] [place] [address] GFR-NON AM. 56 mL/min/1.73m2 Abnormal >60 [facility] Comment on above: Performed By: #### C MP #### [facility] [address] [place] [address] Glucose mass conc 94 mg/dL Normal 74 - 99 [facility] Comment on above: Performed By: #### C MP #### [facility] [address] [place] [address] HCO3 molar conc (Bld) 24 mmol/L Normal 21 - 32 [facility] Comment on above: Performed By: #### C MP #### [facility] [address] [place] [address] Potassium molar conc 4.1 mmol/L Normal 3.5 - 5.3 [facility] Comment on above: Performed By: #### C MP #### [facility] [address] [place] [address] Protein mass conc 7.8 g/dL Normal 6.4 - 8.2 [facility] Comment on above: Performed By: #### C MP #### [facility] [address] [place] [address] Sodium molar conc 139 mmol/L Normal 136 - 145 [facility] Comment on above: Performed By: #### C MP #### [facility] [address] [place] [address] Urea nitrogen mass conc 41 mg/dL High 6 - 23 [facility] Comment on above: Performed By: #### C MP #### [facility] [address] [place] [address] RHEUMATOID FACTORon 12-11-19 19 RHEUMATOID FACTOR <10 Normal 0 - 15 [facility] Comment on above: Performed By: #### R F #### [facility] [address] [place] [address] SEDIMENTATION RATE, ERYTHROC YTEon 12-10-2018 SEDIMENTATION RATE, ERYTHROCYTE 55 mm/h High 0 - 30 [facility] Comment on above: Performed By: #### E SRWS #### [facility] [address] [place] [address] URIC ACIDon 12-10-2018 Urate mass conc 7.9 mg/dL High 2.3 - 6.7 [facility] Comment on above: Result Comment: Radha puncture immediately after or during the administration of Metamizole may lead to falsely low results. Testing should be performed immediately prior to Metamizole dosing. Performed By: #### U AMY #### [facility] [address] [place] [address] Vital Signs Date Time Vital Sign Value Performing Clinician Facility 12-22-2024 15:09-0400 Body height 160.[address] Rodrigue Saldaña MD Work Phone: [facility] 12-22-2024 15:09-0400 Body mass index (BMI) [Ratio] 45.1 kg/m2 Dr. Rodrigue Saldaña MD Work Phone: [facility] 12-22-2024 15:09-0400 Body weight 115.[address] Rodrigue Saldaña MD Work Phone: [facility] 04-24-2024 11:23-0400 Body height 157.5 cm Duc Hritz JITTERBUG OPERATOR.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 Work Phone: [facility] 04-24-2024 11:23-0400 Body mass index (BMI) [Ratio] 46.64 kg/m2 Duc Hritz JITTERBUG OPERATOR.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 Work Phone: [facility] 04-24-2024 11:23-0400 Body weight 115.67 kg Duc Hritz JITTERBUG OPERATOR.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 Work Phone: [facility] Comment on above: Unable to get due to wheelchair 04-24-2024 11:23-0400 Diastolic blood pressure 92 mm[Hg] Duc Hritz JITTERBUG OPERATOR.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 Work Phone: [facility] 04-24-2024 11:23-0400 Heart rate 64 /min Duc Hritz JITTERBUG OPERATOR.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 Work Phone: [facility] 04-24-2024 11:23-0400 Systolic blood pressure 148 mm[Hg] Duc Hritz JITTERBUG OPERATOR.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 Work Phone: [facility] 03-11-2024 11:05-0400 Body height 157.5 cm Delisa Estrella DO Work Phone: [facility] 03-11-2024 11:05-0400 Body mass index (BMI) [Ratio] 46.65 kg/m2 Delisa Estrella DO Work Phone: [facility] 03-11-2024 11:05-0400 Body weight 115.7 kg Delisa Estrella DO Work Phone: [facility] 03-11-2024 11:05-0400 Diastolic blood pressure 64 mm[Hg] Delisa Estrella DO Work Phone: [facility] 03-11-2024 11:05-0400 Heart rate 67 /min Delisa Estrella DO Work Phone: [facility] 03-11-2024 11:05-0400 SaO2% (BldA) [Mass fraction] 95 % Delisa Estrella DO Work Phone: [facility] 03-11-2024 11:05-0400 Systolic blood pressure 117 mm[Hg] Delisa Estrella DO Work Phone: [facility] Encounters Encounter Date Encounter Type Care Provider Facility Start: 04-20-2025 ambulatory Rodrigue schulz OLS Facility:[facility] Start: 03-31-2025 ambulatory Rodrigue Saldaña Facili ty:[facility] Start: 03-30-2025 ambulatory Rodrigue schulz OLS Facility:[facility] Start: 03-30-2025 Registered Referred Rodrigue Tyler/[facility] Start: 03-10-2025 Non-patient / Non-visit Dr. Candis Jordan MD -[facility] Work Phone: Start: 03-09-2025 ambulatory Rodrigue schulz OLS Facility:[facility] Start: 03-09-2025 Registered Referred Rodrigue Vela[facility]ina [facility] Start: 03-02-2025 ambulatory Rodrigue schulz OLS Facility:[facility] Start: 03-02-2025 Registered Referred Rodrigue VelaJanina [facility] Start: 02-25-2025 ambulatory Rodrigue Card ty:[facility] Start: 02-25-2025 [facility] Start: 02-24-2025 End: 02-24-[address] Rodrigue Saldaña MD Work Phone: -[facility] Start: 02-24-2025 End: 02-24-2025 Patient encounter procedure Regine Morales NP-[facility] -[facility] Work Phone: Start: 02-11-2025 ambulatory Rodrigue schulz OLS Facility:[facility] Start: 02-11-2025 Registered Referred Rodrigue VelaJanina [facility] Start: 02-03-2025 ambulatory Rodrigue schulz OLS Facility:[facility] Start: 02-03-2025 Registered Referred Rodrigue VelaJanina [facility] Start: 01-28-2025 ambulatory Rodrigue schulz OLS Facility:[facility] Start: 01-28-2025 Registered Referred Rodrigue VelaJanina [facility] Start: 01-19-2025 End: 01-19-[address] Rodrigue Saldaña MD Work Phone: [facility] Work Phone: Start: 01-19-2025 End: 01-19-2025 Departed Referred Regine VelaJanina [facility] Start: 01-19-2025 Registered Referred Regine VelaJanina [facility] Start: 01-19-2025 End: 01-19-2025 ambulatory Rodrigue Saldaña Facility:[facility] Start: 01-14-2025 End: 01-14-[address] Rodrigue Saldaña MD Work Phone: [facility] Work Phone: Start: 01-14-2025 End: 01-14-2025 Departed Referred Rodrigue [facility] [place] Start: 01-14-2025 Registered Referred Rodrigue Tierney [facility] Start: 01-14-2025 End: 01-14-2025 ambulatory Rodrigue DONOVAN Facility:[facility] Start: 01-09-2025 End: 01-09-2025 Patient encounter procedure Elvi ZHOU -[facility] Work Phone: Start: 01-09-2025 End: 01-09-2025 ambulatory Rodrigue Saldaña Facility:[facility] Start: 01-05-2025 End: 01-05-2025 Departed Referred Rodrigue Tierney [facility] Start: 01-05-2025 End: 01-05-2025 ambulatory Rodrigue DONOVAN Facility:[facility] Start: 01-02-2025 End: 01-02-[address] Rodrigue Saldaña MD Work Phone: [facility] Work Phone: Start: 01-02-2025 End: 01-02-2025 Departed Referred Rodrigue [facility]ney [facility] Start: 01-02-2025 Registered Referred Rodrigue Tyler/[facility] Start: 01-02-2025 End: 01-02-2025 ambulatory Rodrigue DONOVAN Facility:[facility] Start: 12-31-2024 End: 12-31-[address] Rodrigue Saldaña MD Work Phone: [facility] Work Phone: Start: 12-31-2024 End: 12-31-2024 Departed Referred Rodrigue [facility]ney [facility] [facility] Start: 12-31-2024 Registered Referred Rodrigue Saldaña MD -[facility] Start: 12-31-2024 End: 12-31-2024 ambulatory Rodrigue Saldaña Facility:[facility] Start: 12-22-2024 End: 12-22-[address] Arjun Felton MD -[facility] Work Phone: Start: 12-22-2024 End: 12-22-2024 ambulatory Arjun Felton Facility:[facility] Start: 12-17-2024 End: 12-17-[address] Rodrigue Saldaña MD Work Phone: [facility] Work Phone: Start: 12-17-2024 End: 12-17-2024 Departed Referred Regine Morales NP-C -[facility] Start: 12-17-2024 Registered Referred Regine lees FURNITURE DIPPER-C -[facility] Start: 12-17-2024 End: 12-17-2024 ambulatory Regine DONOVAN Facility:[facility] Start: 12-10-2024 End: 12-10-[address] Rodrigue Saldaña MD Work Phone: [facility] Work Phone: Start: 12-10-2024 End: 12-10-2024 Patient encounter procedure Regine Morales NP-C -[facility] Work Phone: Start: 12-08-2024 End: 12-08-2024 Departed Referred Rodrigue Saldaña MD -[facility] Start: 12-08-2024 Registered Referred Rodrigue VelaJanina Tyler/Tiffanie Start: 12-08-2024 End: 12-08-2024 ambulatory Rodrigue Saldaña Facility:[facility] Start: 12-03-2024 End: 12-03-[address] Rodrigue Saldaña MD Work Phone: [facility] Work Phone: Start: 12-03-2024 End: 12-03-2024 Departed Referred Regine Morales FURNITURE DIPPER-C -[place] [facility] [place] [facility] Start: 12-03-2024 Registered Referred Regine Mau lees FURNITURE DIPPER-C -[facility] - [place] [facility] Start: 12-03-2024 End: 12-03-2024 ambulatory Regine DONOVAN Facility:[facility] Start: 11-19-2024 End: 11-19-[address] Rodrigue Saldaña MD Work Phone: [facility] Work Phone: Start: 11-19-2024 End: 11-19-2024 Departed Referred Regine Morales FURNITURE DIPPER-C -L - [facility] Start: 11-19-2024 Registered Referred Regine León yoana FURNITURE DIPPER-C -[facility] - [place] [facility] Start: 11-19-2024 End: 11-19-2024 ambulatory Regine DONOVAN Facility:[facility] Start: 11-10-2024 End: 11-10-[address] Rodrigue Saldaña MD Work Phone: [facility] Work Phone: Start: 11-10-2024 End: 11-10-2024 Departed Referred Rodrigue Saldaña MD -[facility] Start: 11-10-2024 Registered Referred Rodrigue VelaJanina - [place] [facility] Start: 11-10-2024 End: 11-10-2024 ambulatory Rodrigue Saldaña Facility:[facility] Start: 11-05-2024 End: 11-05-[address] Rodrigue Saldaña MD Work Phone: [facility] Work Phone: Start: 11-05-2024 End: 11-05-2024 Departed Referred Regine Morales FURNITURE DIPPER-C -L - [place] [facility] Start: 11-05-2024 End: 11-05-2024 ambulatory Regine DONOVAN Facility:[facility] Start: 10-22-2024 ambulatory Efewongbe Oleghe Facili ty:[facility] Start: 10-22-2024 Registered Referred Rodrigue VelaJanina [facility] [facility] Start: 10-20-2024 ambulatory Efewongbe Oleghe Facili ty:[facility] Start: 10-20-2024 Registered Referred Rodrigue Tienrey [facility] Start: 10-13-2024 ambulatory Efewongbe Oleghe Facili ty:[facility] Start: 10-13-2024 Registered Referred Rodrigue VelaJanina [facility]ney [facility] Start: 10-08-2024 End: 10-08-2024 [facility] Start: 10-08-2024 End: 10-08-2024 ambulatory Efewongbe Manuelae Facility:[facility] Start: 09-24-2024 End: 09-24-2024 Departed Referred Rodrigue VelaJanina [facility] Start: 09-24-2024 End: 09-24-2024 ambulatory Efewongbe Oleghe Facility:[facility] Start: 09-15-2024 ambulatory Efewongbe Oleghe Facili ty:[facility] Start: 09-15-2024 Registered Referred Rodrigue VelaJanina [facility]ney [facility] Start: 09-02-2024 ambulatory Efewongbe Oleghe Facili ty:[facility] Start: 08-27-2024 ambulatory Efewongbe Oleghe Facili ty:[facility] Start: 08-27-2024 [facility] Start: 08-19-2024 End: 08-19-2024 ambulatory KY SHAW Facility:[facility] Start: 08-19-2024 End: 08-19-2024 Patient encounter procedure Ky Shaw OD Work Phone: Ophthalmology Comment on above: 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); Pseudophakia of both eyes Start: 08-18-2024 ambulatory Efewongbe Oleghe Facili ty:[facility] Start: 08-18-2024 [facility] Start: 08-13-2024 ambulatory Efewongbe Oleghe Facili ty:[facility] Start: 08-12-2024 End: 08-12-2024 ambulatory Efewongbe Oleghe Facility:[facility] Start: 08-04-2024 End: 08-04-2024 ambulatory Efewongbe Oleghe OLS Facility:[facility] Start: 07-31-2024 ambulatory Efewongbe Oleghe Facili ty:[facility] Start: 07-31-2024 ambulatory Efewongbe Oleghe Facili ty:[facility] Start: 07-29-2024 ambulatory Efewongbe Oleghe Facili ty:[facility] Start: 07-29-2024 End: 07-29-2024 ambulatory Efewongbe Olejaspreete Facility:[facility] Start: 07-21-2024 End: 07-21-2024 ambulatory Efewongbe Olejaspreete Facility:[facility] Start: 07-07-2024 ambulatory Efewongbe Olejaspreete Facili ty:[facility] Start: 06-25-2024 ambulatory Efjessicaongmaryann schulz OLS Facility:[facility] Start: 06-24-2024 End: 06-24-2024 ambulatory Efjessicaongbe Olejaspreete Facility:[facility] Start: 06-23-2024 ambulatory Efjessicaongmaryann schulz OLS Facility:[facility] Start: 06-17-2024 End: 06-17-2024 ambulatory Efewongbe Olejaspreete Facility:[facility] Start: 06-16-2024 ambulatory Efjessicaongmaryann Ivey he OLS Facility:[facility] Start: 06-09-2024 ambulatory Efjessicaongmaryann schulz OLS Facility:[facility] Start: 05-26-2024 ambulatory Efjessicaongmaryann Uche he OLS Facility:[facility] Start: 05-21-2024 ambulatory Efjessicaongmaryann Uche zeus OLS Facility:[facility] Start: 05-19-2024 ambulatory Aman Ragsdale Facility: [facility] Start: 05-13-2024 End: 05-13-2024 ambulatory Aman Ragsdale Facility:[facility] Start: 04-28-2024 ambulatory Rodrigue DONOVAN Facility:[facility] Start: 04-24-2024 End: 04-24-2024 ambulatory DUC PAYAN Facility:[facility] Start: 04-24-2024 End: 04-24-2024 Office outpatient new 45 minutes Duc Payan JITTERBUG OPERATOR.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 Work Phone: [facility] [place] Comment on above: 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 (Primary Dx); Change in voice; Constipation, unspecified constipation type Start: 03-11-2024 Telephone encounter Delisa rubio DO Work Phone: [facility] Comment on above: appointment today Start: 03-11-2024 End: 03-11-2024 ambulatory DELISA ESTRELLA Facility:[facility] Start: 03-11-2024 End: 03-11-2024 Patient encounter procedure Delisa Estrella DO Work Phone: [facility] Comment on above: Peripheral edema (Pr imary Dx); Primary hypertension; Chronic neck pain; Obesity, Class III, BMI 40-49.9 (morbid obesity) (HCC); Garcia's esophagus with dysplasia; Mixed hyperlipidemia; Anxiety and depression Start: 12-17-2023 Telephone encounter Delisa rubio DO Work Phone: [facility] Comment on above: Appointment (Previou s patient) Start: 12-07-2023 End: 12-07-2023 ambulatory VINOD ROJAS Facility:[facility] Start: 12-06-2023 ambulatory VINOD ROJAS Fac ility:[facility] Start: 12-05-2023 End: 12-05-2023 ambulatory [facility] Work Phone: Start: 12-05-2023 End: 12-05-2023 Departed Referred [facility] Start: 11-23-2023 End: 11-23-2023 ambulatory VINOD ROJAS Facility:[facility] Start: 11-23-2023 End: 11-23-2023 Patient encounter procedure Vinod Rojas MD Work Phone: Ophthalmology Comment on above: Pseudophakia of righ t eye (Primary Dx); Nuclear sclerotic cataract of left eye Start: 11-22-2023 End: 11-22-2023 ambulatory VINOD ROJAS Facility:[facility] Start: 11-20-2023 Telephone encounter Vinod Rojas MD Work Phone: Ophthalmology Comment on above: [facility]; Patient Update Start: 11-16-2023 ambulatory DELISA ESTRELLA Facilit y:[facility] Start: 10-24-2023 End: 10-24-2023 ambulatory [facility] Work Phone: Start: 10-24-2023 End: 10-24-2023 Departed Referred [facility] Start: 10-12-2023 Telephone encounter Vinod Rojas MD Work Phone: Ophthalmology Comment on above: Schedule Surgery Start: 09-18-2023 End: 09-18-2023 ambulatory VINOD ROJAS Facility:[facility] Start: 09-12-2023 End: 09-12-2023 Departed Referred [facility] Start: 07-20-2023 End: 07-20-[address] Aman Ragsdale Work Phone: [facility] Work Phone: Start: 07-20-2023 End: 07-20-[address] Aman Ragsdale Work Phone: [facility] Start: 07-13-2023 End: 07-13-[address] Aman Ragsdale Work Phone: [facility] Work Phone: Start: 07-13-2023 End: 07-13-[address] Aman Ragsdale Work Phone: [facility] Start: 07-13-[address] Aman villafuerte Work Phone: [facility] Start: 07-05-2023 End: 07-05-[address] Aman Ragsdale Work Phone: [facility] Work Phone: Start: 07-05-2023 End: 07-05-[address] Aman Ragsdale Work Phone: [facility] Start: 06-26-2023 End: 06-26-[address] Aman Ragsdale Work Phone: [facility] Work Phone: Start: 06-02-[address] Aman villafuerte Work Phone: [facility]-Laboratory, Specimen Work Phone: Start: 05-15-2023 End: 05-15-[address] Aman Ragsdale Work Phone: [facility] Start: 04-30-2023 End: 04-30-[address] Aman Ragsdale Work Phone: [facility] Work Phone: Start: 04-19-2023 End: 04-19-2023 ambulatory [facility] Work Phone: Start: 04-19-2023 End: 04-19-2023 Departed Referred [facility] Start: 01-17-2023 End: 01-17-2023 Departed Referred [facility] Start: 07-20-2022 End: 07-20-2022 ambulatory [facility] Work Phone: Start: 07-20-2022 End: 07-20-2022 Departed Referred [facility] Start: 04-19-2022 End: 04-19-2022 ambulatory [facility] tucker Work Phone: Start: 04-19-2022 End: 04-19-2022 Departed Referred [facility] Start: 01-31-2022 End: 01-31-2022 Departed Referred [facility] Start: 03-28-2021 End: 03-28-2021 Subsequent hospital visit by physician Xr [facility] Comment on above: 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 Rodrigue Saldaña MD Work Phone: Start: 03-09-[address] Wero Saldaña MD Work Phone: Start: 12-22-2024 Plain X-ray of shoulder Dr. Rodrigue Saldaña MD Work Phone: Start: 10-22-2024 Measurement of renal function Dr. Rodrigue Saldaña MD Work Phone: Comment on above: GFR Calc Start: 10-13-2024 Measurement of renal function Dr. Rodrigue Saldaña MD Work Phone: Comment on above: GFR Calc Start: 10-08-2024 Measurement of renal function Dr. Rodrigue Saldaña MD Work Phone: Comment on above: GFR Calc Start: 09-24-2024 Measurement of renal function Dr. Rodrigue Saldaña MD Work Phone: Comment on above: GFR Calc Start: 06-02-[address] Aman Ragsdale Work Phone: Start: 06-02-2023 Investigation of transfusion reaction Dr. Aman Ragsdale Work Phone: Start: 06-02-2023 Microbial culture, routine Dr. Aman Ragsdale Work Phone: Start: 05-15-2023 Investigation of transfusion reaction Dr. Aman Ragsdale Work Phone: Start: 05-15-2023 Microbial culture, routine Dr. Aman Ragsdale Work Phone: Start: 03-28-2021 Radex foot complete minimum 3 views Jose Miranda MD Work Phone: History of Reported Hx Of Knee Replacement Vinod Fulton MD Plan of Treatment Date Care Activity Detail Author Start: 08-20-2025 End: 08-20-2025 Patient encounter procedure 08/20/2025 2:30 PM EST Office Visit [facility] [address] [place] [address] Ky Shaw, OD [address] [place] [address] 1 YR F/U for complete eye exam and mac OCT. Ophthalmology Comment on above: 1 YR F/U for complete eye exam and mac O CT. Start: 09-23-2024 End: 09-23-2024 Patient encounter procedure 09/23/2024 2:45 PM EST Office [facility] [address] [place] [address] Adrienne Rosario MD [address] [place] [address] esophagus without dysplasia [facility] Comment on above: esophagus without dysplasia Start: 06-06-2024 Diabetes Screening Diabetes Screening [facility] Start: 05-27-2024 End: 05-27-2024 Patient encounter procedure 05/27/2024 1:45 PM EDT Office Visit [facility] [address] [place] [address] Ky Shaw, OD [address] [place] [address] Surgery follow up/refraction Ophthalmology Comment on above: Surgery follow up/refraction Start: 05-11-2024 Covid-19 Vaccine () Covid-19 Vaccine () [facility] Start: 05-11-2024 Influenza vaccination [facility] Start: 04-24-2024 End: 07-24-2024 Thyrotropin [Units/volume] in Serum or Plasma THYROID STIMULATING HORMONE Lab Routine Change in voice Constipation, unspecified constipation type Expected: 04/24/2024, Expires: 07/24/2024 [facility] Work Phone: Comment on above: Expected: 04/24/2024, Expires: Start: 04-24-2024 End: 04-24-2024 Patient encounter procedure 04/24/2024 11:20 AM EDT Office [facility] [address] [place] [id number] Duc Payan, JITTERBUG OPERATOR.[facility] [address] [place], [place] [id number] hx of garcia esophagus [facility] [place] Comment on above: hx of garcia esophagus Start: 03-17-2024 End: 03-17-2024 Patient encounter procedure 03/17/2024 3:15 PM EDT Office Visit [facility] [address] [facility] [address] [place], [place] [id number] Vinod Rojas MD [address] [facility] [address] [place] [address] Surgery follow up/refraction Ophthalmology Comment on above: Surgery follow up/refraction Start: 02-11-2024 Urine microalbumin profile DTaP,Tdap,Td Vaccine (2 - Td or Tdap) [facility] Start: 09-10-2023 Advance Directive Discussion Advance Directive Discussion [facility] Start: 09-10-2023 Behavioral Health Screening Behavioral Health Screening [facility] Start: 09-10-2023 Depression Assessment Depression Assessment [facility] Start: 05-11-2023 Covid-19 Vaccine () Covid-19 Vaccine () [facility] Start: 05-11-2023 Covid-19 Vaccine (6 - 2023-24 season) Covid-19 Vaccine ( season) [facility] Start: 05-11-2023 Influenza vaccination Influenza Vaccine (#1) [facility] Start: 09-10-2022 Advance Directive Discussion Advance Directive Discussion [facility] Start: 09-10-2022 Depression Assessment Depression Assessment [facility] Start: 2015 RSV Vaccine (1 - 1-dose 75+ series) RSV Vaccine (1 - 1-dose 75+ series) [facility] Start: 2000 RSV Vaccine (1 - 1-dose 60+ series) RSV Vaccine (1 - 1-dose 60+ series) [facility] Start: 1990 Shingrix Vaccine (1 of 2) Shingrix Vaccine (1 of 2) [facility] Start: 1958 Anxiety Screening Anxiety Screening [facility] Start: 1958 Depression Screening Depression Screening [facility] End: 04-24-2025 EGD DIAGNOSTIC EGD DIAGNOSTIC Endoscopy Routine 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 1 Occurrences starting 04/24/2024 until 04/24/2025 [facility] Comment on above: 1 Occurrences starting 04/24/2024 until 04/24/2025 [facility] Immunizations Immunization Date Immunization Notes Care Provider Mode melgar 02-05-2021 COVID-19 original vaccine, full dose, monovalent (MODERNA) Xr [facility] 01-08-2021 COVID-19 original vaccine, full dose, monovalent (MODERNA) Xr [facility] 07-27-2020 influenza (HD-IIV4) vaccine, age 65+ yr, high dose, quadrivalent, PF (FLUZONE HIGH-DOSE) Xr [facility] 07-27-2020 influenza virus vacc ine, unspecified formulation Xr [facility] 07-14-2019 influenza, high dose seasonal, preservative-free Xr [facility] 06-01-2018 influenza, high dose seasonal, preservative-free Xr [facility] 07-20-2016 influenza, high dose seasonal, preservative-free Xr [facility] 01-17-2016 pneumococcal conjuga te vaccine, 13 valent Xr [facility] 02-10-2014 tetanus toxoid, redu mamta diphtheria toxoid, and acellular pertussis vaccine, adsorbed Xr [facility] 06-23-2013 influenza virus vacc ine, unspecified formulation Xr [facility] 02-22-2013 pneumococcal polysaccharide vaccine, 23 valent Xr [facility] 06-24-2012 influenza virus vacc ine, unspecified formulation Xr [facility] 08-09-2011 influenza, seasonal, injectable Vinod Fulton MD [facility] Work Phone: 10-27-2009 novel influenza-H1N1 -09, preservative-free, injectable Xr [facility] 07-14-2008 influenza, seasonal, injectable Xr [facility] Payers Date Payer Category Payer Medicaid [id number] 2024 Medicare [id number] 2024 Medicaid 2024 Medicare [id number] 2024 Self-pay [id number] 2022 Private Health Insurance [id number] 2020 Medicare [id number] 1940 Unknown [id number] 2.16. 840.1.305771.3.579.2.356 Private Health Insurance [id number] 2012 Unknown [id number] 2.16.8 40.1.438861.3.579.2.462 Unknown [id number] 2.16.8 40.1.795905.3.579.2.462 Unknown [id number] 2.16.8 40.1.853241.3.579.2.462 Unknown [id number] 2.16.8 40.1.521617.3.579.2.462 Unknown [id number] 2.16.8 40.1.399484.3.579.2.462 Unknown [id number] 2.16.8 40.1.430647.3.579.2.462 Unknown [id number] 2.16.8 40.1.816288.3.579.2.462 Unknown [id number] 2.16.8 40.1.689297.3.579.2.462 Unknown [id number] 2.16.8 40.1.587146.3.579.2.462 Unknown [id number] 2.16.8 40.1.515490.3.579.2.462 Unknown [id number] 2.16.8 40.1.607207.3.579.2.462 Unknown [id number] 2.16.8 40.1.817638.3.579.2.462 Unknown [id number] 2.16.8 40.1.877593.3.579.2.462 Unknown [id number] 2.16.8 40.1.802455.3.579.2.462 Unknown [id number] 2.16.8 40.1.576077.3.579.2.462 Unknown [id number] 2.16.8 40.1.922007.3.579.2.462 Unknown [id number] 2.16.8 40.1.033494.3.579.2.462 Unknown [id number] 2.16.8 40.1.878003.3.579.2.462 Unknown [id number] 2.16.8 40.1.879662.3.579.2.462 Unknown [id number] 2.16.8 40.1.940253.3.579.2.462 Unknown [id number] 2.16.8 40.1.567794.3.579.2.462 Unknown [id number] 2.16.8 40.1.799335.3.579.2.462 Unknown [id number] 2.16.8 40.1.612487.3.579.2.462 Unknown [id number] 2.16.8 40.1.963929.3.579.2.462 Unknown [id number] 2.16.8 40.1.729930.3.579.2.462 Unknown [id number] 2.16.8 40.1.578866.3.579.2.462 Unknown [id number] 2.16.8 40.1.357752.3.579.2.462 Unknown [id number] 2.16.8 40.1.416992.3.579.2.462 Unknown [id number] 2.16.8 40.1.702425.3.579.2.462 Unknown [id number] 2.16.8 40.1.146543.3.579.2.462 Unknown [id number] 2.16.8 40.1.207946.3.579.2.462 Unknown [id number] 2.16.8 40.1.354929.3.579.2.462 Unknown [id number] 2.16.8 40.1.752225.3.579.2.462 Unknown [id number] 2.16.8 40.1.419136.3.579.2.462 Unknown [id number] 2.16.8 40.1.665081.3.579.2.462 Unknown [id number] 2.16.8 40.1.267628.3.579.2.462 Unknown [id number] 2.16.8 40.1.844669.3.579.2.462 Unknown [id number] 2.16.8 40.1.937185.3.579.2.462 Unknown [id number] 2.16.8 40.1.775675.3.579.2.462 Unknown [id number] 2.16.8 40.1.929009.3.579.2.462 Unknown [id number] 2.16.8 40.1.065736.3.579.2.462 Unknown [id number] 2.16.8 40.1.750471.3.579.2.462 Unknown [id number] 2.16.8 40.1.771536.3.579.2.462 Unknown [id number] 2.16.8 40.1.241802.3.579.2.462 Unknown [id number] 2.16.8 40.1.117768.3.579.2.462 Unknown [id number] 2.16.8 40.1.533564.3.579.2.462 Unknown [id number] 2.16.8 40.1.393865.3.579.2.462 Unknown [id number] 2.16.8 40.1.889453.3.579.2.462 Unknown [id number] 2.16.8 40.1.963208.3.579.2.462 Unknown [id number] 2.16.8 40.1.307304.3.579.2.462 Unknown [id number] 2.16.8 40.1.966336.3.579.2.462 Unknown [id number] 2.16.8 40.1.694281.3.579.2.462 Unknown [id number] 2.16.8 40.1.671856.3.579.2.462 Unknown [id number] 2.16.8 40.1.852730.3.579.2.462 Unknown [id number] 2.16.8 40.1.839736.3.579.2.462 Unknown [id number] 2.16.8 40.1.441962.3.579.2.462 Social History Date Type Detail Facility Start: 1940 Sex Assigned At Female [facility] Start: 08-18-2016 End: 07-15-2024 Tobacco smoking status NHIS Never smoked tobacco [facility] Start: 08-18-2016 End: 12-07-2023 Tobacco use and exposure Smokeless tobacco non-user [facility] Start: 03-28-2021 End: 08-19-2024 Alcohol intake Ex-drinker (finding) [facility] Start: 03-19-2020 End: 11-23-2023 History of Social function [facility] Start: 03-19-2020 End: 11-23-2023 Social connection and isolation panel [facility] Do you belong to any clubs or organizations such as orthodoxy groups, unions, fraternal or athletic groups, or school groups? No [facility] Are you now , , , , never or living with a partner? [facility] How hard is it for y ou to pay for the very basics like food, housing, medical care, and heating Not hard at all [facility] Do you feel stress - tense, restless, nervous, or anxious, or unable to sleep at night because your mind is troubled all the time - these days [OSQ] Very much [facility] (I/We) worried whefatoumata er (my/our) food would run out before (I/we) got money to buy more. Never true [facility] Start: 08-18-2016 End: 12-07-2023 Tobacco Comment did try when she was younger [facility] Start: 03-24-2014 Alcohol Comment occasional, 6 glasses of wine per year [facility] Start: 1940 Sex Assigned At Not on file C [facility] Start: 02-26-2021 End: 03-28-2021 Exposure to SARS-CoV-2 (event) Not sure [facility] Start: 12-12-2024 End: 12-26-2024 Sex Female (finding) [facility] NEGATED: Highlighted row - - SG-Gaqmqabruqhr-Lht urban Work Phone: Medical Equipment Procedure Code Equipment Code Equipment Original Text Equipment Identifier Dates [id number] Implant - [id number] Start: 02-19-2013 Comment on above: Description: pinnacl ealtrx polyethylene acetabular liner+4 neutral 36mm ID 52mm OD 0---Head Fem +5m m 07/23 36mm Hip - [id number] Start: 02-19-2013 0---Cup Actb 52m m Pinn Sect Srs - [id number] Start: 02-19-2013 [id number] Fem 12mm Cmntls Colr - [id number] Start: 02-19-2013 Cca0t0.225 [facility] - [id number] Start: 11-22-2023 Cca0t0.225 [facility] - [id number] Start: 12-06-2023 Functional Status Date Assessment Result Facility NEGATED: Highlighted row Functional performance Functional status health issues are not documented Disease OM-Lkuxxiexknwh-Ydj urban Work Phone: Mental Status Date Assessment Result Facility NEGATED: Highlighted row Cognitive function [Interpretation] Cognitive status health issues are not documented Disease IO-Snwwngzfkxuz-Wic urban Work Phone: Clinical Notes 05-03-2018 to 12-22-2024 Note Date & Type Note Facility 12-22-2024 Evaluation note Diagnosis Onset Date Resolution Left shoulder pain acute December 22, 2024 3:08pm Primary osteoarthritis, left shoulder acute December 22, 2024 3:08pm [facility] Work Phone: 1(745) 713-775904-14-2025 Evaluation note* Diagnosis Onset Date Resolution Status Admit Date Left shoulder pain acute December 22, 2024 3:08pm Primary osteoarthritis, left shoulder acute December 22, 2024 3:08pm Garcia's esophagus chronic January 092024 3:24pm [facility] Work Phone: 1(881) 646-741612-10-2024 Instructions* Patient Instructions* Ky Shaw OD - 08/19/2024 3:04 PM EST Continue Preservision daily Call with any sudden increase in flashes/floaters or changes to peripheral vision documented in this encounterK[facility]12-10-2024 NoteHNO ID: [id number] Author: KY SHAW OD Service: ? Author Type: HAIRSPRING STAKER Type: Progress Notes Filed: 08/19/2024 15:42 Note Text: 1. 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 Pseudophakia of both eyes No improvement in vision with updated rx Educated pt Will monitor Follow-up in 1 year for complete dilated exam Or sooner with any changes to peripheral vision (flashes/floaters, etc.) Ky Shaw, OD August 19, 2024 3:03 [facility]12-10-2024 History of Present illness Narrative* Ky Shaw, OD - 08/19/2024 3:03 PM EST 1. 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 Pseudophakia of both eyes No improvement in vision with updated rx Educated pt Will monitor Follow-up in 1 year for complete dilated exam Or sooner with any changes to peripheral vision (flashes/floaters, etc.) Ky Shaw, OD August 19, 2024 3:03 PM documented in this encounterK[facility]08-15-2024 Instructions* Patient Instructions* Duc Payan APRN.CNP - 04/24/2024 11:43 AM EDT - recommend ENT referral for voice changes documented in this encounterK[facility]08-15-2024 NoteHNO ID: [id number] Author: DUC PAYAN APRN.CNP Service: ? Author Type: Nurse Practitioner Type: Progress Notes Filed: 04/24/2024 12:25 Note Text: CHIEF COMPLAINT: Patient presents with: Garcia's Esophagus : Voice change Constipation: Bloating This consult was requested by No ref. provider found for an opinion regarding garcia's esophagus. My final recommendations will be communicated to the requesting health care provider by way of the shared medical record for internal providers or letter via the MM[employer] Postal Service for external providers. HPI: Yaa Ward is a 83 year old female with hx of GERD, Garcia's esophagus, fibromyalgia, HLD, HTN, IBS, who presents for Garcia's Esophagus. She denies any GERD, but has had trouble with voice changes (gravelly) and difficulty singing. She lose her voice at times. This has been going on for a couple years, and she feels like it is getting worse. She will sometimes get a sore throat - she will gargle with Scope and it will feel better. (-) dysphagia, abdominal pain, appetite loss Has some bloating and constipation - has a BM once a day. She will drink prune juice and eat veggies. Last EGD was 03/2019: Record Review: [facility] / Outside records reviewed. 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 Huerta No date: Cataract of both eyes No date: Coronary artery disease No date: Depression with anxiety Comment: On Zoloft regularly, on Ativan prn No date: Diverticula of colon No date: Diverticulitis No date: Fibromyalgia No date: GERD (gastroesophageal reflux disease) No date: High blood pressure No date: History of peptic ulcer disease No date: Hx of colonic polyps Comment: Dr. 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 Comment: As a child, joint pain even as a child fallen arches No date: Uterine fibroid No date: UTI (urinary tract infection) No date: Vitamin D deficiency PAST SURGICAL HISTORY No date: APPENDECTOMY 02/09/2012: ARTHRP ACETBLR/PROX FEM PROSTC AGRFT/ALGRFT Comment: Hip replacement, total left 05/25/2005: ARTHRP KNE CONDYLEANDPLATU MEDIALANDLAT COMPARTMENTS Comment: left total knee arthroplasty 09/10/2014: ARTHRP JOSE CONDYLEANDPLATU MEDIALANDLAT COMPARTMENTS Comment: right knee No date: EXTENSIVE FOOT SURGERY Comment: Right foot bunion, hammer toes bilaterally No date: OOPHORECTOMY PARTIAL/TOTAL UNI/BI Comment: same time as hysterectomy 07/16/2012: PAST SURGICAL HISTORY OF Comment: colonoscopy, follow up in two years according to report 11/22/2023: REMV CATARACT EXTRACAP,INSERT LENS; Right 12/06/2023: REMV CATARACT EXTRACAP,INSERT LENS; Left 09/10/1943: TONSILLECTOMY HX 09/10/1990: TOTAL ABDOMINAL HYSTERECT W/WO RMVL TUBE OVARY Comment: dysfunctional uterine bleeding Allergies: ALLERGIES Allergen Reactions Vmduysi-Aml-Myb Red* Other: See Comments Lethargic, and muscle and joint pain Clindamycin Rash, Itching Morphine GI Upset, Vomiting Penicillins Rash Percocet [Oxycodone* Intolerance Sulfa (Sulfonamide * Other: See Comments thrush Medications: hydroCHLOROthiazide 50 mg tablet sertraline (ZOLOFT) 50 mg tablet aspirin, enteric coated (ASPIRIN, ENTERIC COATED) 81 mg EC tablet Take 81 mg by mouth once daily. Fenofibrate 150 mg cap Take 150 mg by mouth daily at bedtime. potassium chloride ER (KLOR-CON) 20 mEq tablet Take 40 mEq by mouth once daily. magnesium hydroxide (MILK OF MAGNESIA ORAL) Take by mouth. sennosides (SENNA ORAL) Take by mouth. propylene glycol/peg 400/PF (SYSTANE, PF, OPHTHALMIC) Use in eyes. pregabalin (LYRICA) 100 mg capsule Take 100 mg by mouth three times a day. vibegron (GEMTESA) 75 mg tablet Take 1 tablet by mouth once daily. vit C,U-Ty-lfjep-lutein-zeaxan (PRESERVISION AREDS-2) 250-90-40-1 mg Take by mouth. acetaminophen (TYLENOL) 325 mg tablet Take 2 tablets by mouth every 8 hours as needed for pain. pantoprazole DR (PROTONIX) 40 mg tablet TAKE ONE TABLET BY MOUTH ONCE A DAY docusate sodium (COLACE) 100 mg capsule Take 1 capsule by mouth twice daily. Cholecalciferol, Vitamin D3, (VITAMIN D) 1,000 unit Tab Take 2,000 Units by mouth once daily. furosemide (LASIX) 20 mg tablet (Patient not taking: Reported on 04/24/2024) nitroglycerin sublingual (NITROQUICK) 0.4 mg SL tablet (Patient not taking: Reported on 04/24/2024) metoprolol succinate ER (TOPROL XL) 25 mg 24 hr tablet Take 12.5 mg by mouth once daily. (Patient not taking: Reported on 04/24/2024) triamcinolone acetonide (KENALOG) 0.1 % cream Apply to affected area. (Patient not taking: Reported on 04/24/2024) nystatin (MYCOSTATIN) powder Apply 1 application to affected area twice daily. (more content not included)...[facility]08-15-2024 History of Present illness Narrative* Duc Payan APRN.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 - 04/24/2024 11:21 AM EDT Images from the original note were not included. CHIEF COMPLAINT: Patient presents with: Garcia's Esophagus : Voice change Constipation: Bloating This consult was requested by No ref. provider found for an opinion regarding garcia's esophagus. My final recommendations will be communicated to the requesting health care provider by way of the shared medical record for internal providers or letter via the MMIS Postal Service for external providers. HPI: Yaa Ward is a 83 year old female with hx of GERD, Garcia's esophagus, fibromyalgia, HLD, HTN, IBS, who presents for Garcia's Esophagus. She denies any GERD, but has had trouble with voice changes (gravelly) and difficulty singing. She lose her voice at times. This has been going on for a couple years, and she feels like it is getting worse. She will sometimes get a sore throat - she will gargle with Scope and it will feel better. (-) dysphagia, abdominal pain, appetite loss Has some bloating and constipation - has a BM once a day. She will drink prune juice and eat veggies. Last EGD was 03/2019: Record Review: [facility] / Outside records reviewed. 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 Huerta No date: Cataract of both eyes No date: Coronary artery disease No date: Depression with anxiety Comment: On Zoloft regularly, on Ativan prn No date: Diverticula of colon No date: Diverticulitis No date: Fibromyalgia No date: GERD (gastroesophageal reflux disease) No date: High blood pressure No date: History of peptic ulcer disease No date: Hx of colonic polyps Comment: Dr. 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 Comment: As a child, joint pain even as a child fallen arches No date: Uterine fibroid No date: UTI (urinary tract infection) No date: Vitamin D deficiency PAST SURGICAL HISTORY No date: APPENDECTOMY 02/09/2012: ARTHRP ACETBLR/PROX FEM PROSTC AGRFT/ALGRFT Comment: Hip replacement, total left 05/25/2005: ARTHRP KNE CONDYLE&PLATU MEDIAL&LAT COMPARTMENTS Comment: left total knee arthroplasty 09/10/2014: ARTHRP KNE CONDYLE&PLATU MEDIAL&LAT COMPARTMENTS Comment: right knee No date: EXTENSIVE FOOT SURGERY Comment: Right foot bunion, hammer toes bilaterally No date: OOPHORECTOMY PARTIAL/TOTAL UNI/BI Comment: same time as hysterectomy 07/16/2012: PAST SURGICAL HISTORY OF Comment: colonoscopy, follow up in two years according to report 11/22/2023: REMV CATARACT EXTRACAP,INSERT LENS; Right 12/06/2023: REMV CATARACT EXTRACAP,INSERT LENS; Left 09/10/1943: TONSILLECTOMY HX 09/10/1990: TOTAL ABDOMINAL HYSTERECT W/WO RMVL TUBE OVARY Comment: dysfunctional uterine bleeding Allergies: ALLERGIES Allergen Reactions Eynroqd-Ane-Fuq Red* Other: See Comments Lethargic, and muscle and joint pain Clindamycin Rash, Itching Morphine GI Upset, Vomiting Penicillins Rash Percocet [Oxycodone* Intolerance Sulfa (Sulfonamide * Other: See Comments thrush Medications: hydroCHLOROthiazide 50 mg tablet sertraline (ZOLOFT) 50 mg tablet aspirin, enteric coated (ASPIRIN, ENTERIC COATED) 81 mg EC tablet Take 81 mg by mouth once daily. Fenofibrate 150 mg cap Take 150 mg by mouth daily at bedtime. potassium chloride ER (KLOR-CON) 20 mEq tablet Take 40 mEq by mouth once daily. magnesium hydroxide (MILK OF MAGNESIA ORAL) Take by mouth. sennosides (SENNA ORAL) Take by mouth. propylene glycol/peg 400/PF (SYSTANE, PF, OPHTHALMIC) Use in eyes. pregabalin (LYRICA) 100 mg capsule Take 100 mg by mouth three times a day. vibegron (GEMTESA) 75 mg tablet Take 1 tablet by mouth once daily. vit C,R-Aw-tirhg-lutein-zeaxan (PRESERVISION AREDS-2) 250-90-40-1 mg Take by mouth. acetaminophen (TYLENOL) 325 mg tablet Take 2 tablets by mouth every 8 hours as needed for pain. pantoprazole DR (PROTONIX) 40 mg tablet TAKE ONE TABLET BY MOUTH ONCE A DAY docusate sodium (COLACE) 100 mg capsule Take 1 capsule by mouth twice daily. Cholecalciferol, Vitamin D3, (VITAMIN D) 1,000 unit Tab Take 2,000 Units by mouth once daily. furosemide (LASIX) 20 mg tablet (Patient not taking: Reported on 04/24/2024) nitroglycerin sublingual (NITROQUICK) 0.4 mg SL tablet (Patient not taking: Reported on 04/24/2024) metoprolol succinate ER (TOPROL XL) 25 mg 24 hr tablet Take 12.5 mg by mouth once daily. (Patient not taking: Reported on 04/24/2024) triamcinolone acetonide (KENALOG) 0.1 % cream Apply to affected area. (Patient not taking: Reportedon 04/24/2024) nystatin (MYCOSTATIN) powder Apply 1 application to affected area twice daily. (Patient not taking:Reported on 04/24/2024) Fluticasone Propionate (CUTIVATE) 0.05 % cream Apply to affected area as needed. Apply as directed to affected area twice daily (Patient not taking: Reported on 03/11/2024) hydrOXYzine HCl (ATARAX) 10 mg tablet Take 1 tablet by mouth three times daily as needed for anxiety. (Patient not taking: Reported on 03/11/2024) aspirin-caffeine (BACK AND BODY PAIN RELIEVER) 500-32.5 mg tab Take by mouth every 6 hours as needed. (Patient not taking: Reported on 04/24/2024) ezetimibe (ZETIA) 10 mg tablet Take 1 tablet by mouth once daily. (Patient not taking: Reported on 03/11/2024) metoprolol succinate ER (TOPROL XL) 50 mg 24 hr tablet Take 1 tablet by mouth once daily. (Patient not taking: Reported on 03/11/2024) [place]-3 Fatty Acids-Vitamin E (FISH OIL) 1,000 mg cap Take 1 capsule by mouth once daily. (Patient not taking: Reported on 03/11/2024) LUTEIN ORAL Take by mouth. (Patient not taking: Reported on 04/24/2024) FAMILY HISTORY Problem Relation Age of Onset Glaucoma Father Arthritis Father Macular Degen Father Colon Cancer Father Ischemic Heart Disease Father other (Other) Father Glaucoma Mother Arthritis Mother was in bed for 6 years Macular Degen Mother Colon Cancer Mother Strabismus Other cousin Macular Degen Maternal Aunt Macular Degen Paternal Aunt Employer And Job Title: None on file Years Of Education Completed: Not specified Marital Status: Single Social History Tobacco Use Smoking status: Never Smokeless tobacco: Never Tobacco comments: did try when she was younger Vaping Use Vaping Use: Never used Substance Use Topics Alcohol use: Not Currently Comment: occasional, 6 glasses of wine per year Drug use: No Review of Systems: Review of Systems HENT: Positive for hearing loss and voice change. Respiratory: Positive for cough, shortness of breath and wheezing. Cardiovascular: Positive for leg swelling. Gastrointestinal: Positive for abdominal distention and constipation. Gas All other systems reviewed and are negative. Are you taking any blood thinners? No Physical Examination: BP 148/92 Pulse 64 Ht 5' 2" (1.58m) Wt 255 lb (115.7kg) BMI 46.63 kg/(m^2). Physical Exam Vitals and nursing note reviewed. Constitutional: Appearance: Normal appearance. She is morbidly obese. Comments: In wheelchair HENT: Head: Normocephalic and atraumatic. Mouth/Throat: Mouth: Mucous membranes are moist. Eyes: General: No scleral icterus. Cardiovascular: Rate and Rhythm: Normal rate and regular rhythm. Pulmonary: Breath sounds: Normal breath sounds. Abdominal: General: Abdomen is protuberant. Bowel sounds are decreased. Palpations: Abdomen is soft. Tenderness: There is no abdominal tenderness. There is no guarding or rebound. Musculoskeletal: General: No swelling. Skin: General: Skin is warm and dry. Neurological: Mental Status: She is alert and oriented to person, place, and time. Psychiatric: Mood and Affect: Mood normal. Behavior: Behavior normal. Thought Content: Thought content normal. Judgment: Judgment normal. 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 Change in voice - recommend referral to ENT - check TSH - THYROID STIMULATING HORMONE; Future 3. Constipation, unspecified constipation type - stable; currently not bothering her - THYROID STIMULATING HORMONE; Future Follow up in office ALBINO Payan APRN.CNP April 24, 2024 12:16 PM documented in this encounterK[facility]07-[facility]24 Telephone encounter Note * Telephone Encounter - Delisa Estrella DO - 03/12/2024 2:12 PM EDT Spoke to Saba yesterday. Pt agrees Dr Saldaña will remain her PCP but plans to come her on occasion as she has seen me for the past 30 yrs. She is aware that Dr Saldaña will manage her care and I can make suggestions re: care with Dr Saldaña it she wishes. Delisa Estrella DO [facility]07-03-2024 Miscellaneous Notes* Telephone Encounter - Delisa Estrella DO - 03/12/2024 2:12 PM EDT Spoke to Saba yesterday. Pt agrees Dr Saldaña will remain her PCP but plans to come her on occasion as she has seen me for the past 30 yrs. She is aware that Dr Saldaña will manage her care and I can make suggestions re: care with Dr Saldaña it she wishes. Delisa Estrella DO * Telephone Encounter - Ariela Saenz - 03/11/2024 10:04 AM EDT Saba with [facility] is calling Delisa Estrella DO today with concern regarding appointment today. Patient lives in a facility right now and the transcription manager of the facility is calling and states that patient has a physician at the facility. Patient is coming in for an appointment and when patient was confronted about the appointment and not being able to have two PCP'S patient states "I am going to see a friend". If patient is wanting to establish care patient did not bring any information Patient has been identified by name and birthdate. Duration of symptoms: N/A Any questions, please call [phone] Closing statement: Results or non-symptom based questions: Thank you for calling [facility], your call will be returned within the next business day. Ariela Saenz documented in this encounterKet[facility]07-02-2024 Instructions* Patient Instructions* Delisa Estrella DO - 03/11/2024 1:00 PM EDT Discussed with Saba (your nursing pest control supervisor at [facility] the following recommendations: - continue care with Dr Saldaña/NEERAJ at [facility]. - would recommend Dr Saldaña/NEERAJ evaluation of leg swelling very soon. Give consideration to cardiology evaluation - consider cutting back on carbohydrates at meals. Consider more protein intake at meals. 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 One close place to your living facility is: [facility] in [place] Dr Rosario documented in this encounterK[facility]07-02-2024 History of Present illness Narrative* Delisa Estrella DO - 03/11/2024 10:20 AM EDT Yaa Ward is a 83 year old female presenting for evaluation Patient is wishing to reestablish care-she recently moved to [facility] Last office visit with me was on 03/01/2021 Pt currently lives at an assisted living facility " [facility]" in [place] where she follows with a 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 and with PCP Dr Saldaña. I have known pt for ~ 30 yrs and she is wishing to reestablish care here as well. Plans to keep Dr Matute as her PCP but would like to see me 1-2 times a yr to discuss her care. Sheis aware and I agree that I am willing to make recommendations to help coordinate her care with herPCP. S/p cataract surgery in November on 11/21 and 12/[address] Rojas. Previous PCP Dr Ragsdale (in [place]) retired 2 yrs ago New PCP Dr Saldaña at [facility] States has only met the physician on time. Follows most of the time with NEERAJ Noa at [facility] Services: at her Assisted living facility - Dispense medication. - help Cleaning her apartment - Going to PT 3 days this week. Walking with walker always. -3 meals of "carbohydrates and I have gained 50#". The facility serves noodles and mash potatoes together" - persons shop for me -watching [place] on TV. Anxiety/depression Following with psychiatrist Dr. Morales-last seen last week on . Dr Morales advised her to see Janene as he was leaving his practice. Pt is not sure she would like to see Janene. Zoloft 125 mg daily dose. Hypertension/hyperlipidemia No chest pain, no sob Current regimen Metoprolol succinate 12.5 mg one daily. Fenofibrate 150 mg at bedtime. Chronic low back pain Lyrica 100 mg one three times daily History of Baretts esophagus/history of GERD Current regimen Protonix 40 mg daily dose Since in [place] she has not seen a GI as advised that there is no GI provider in [place]. After discussion I did place a call and found closest GI provider in [facility] in [place] Phone number: [phone] Rosario Pt aware and will try to schedule an appt. Pt is aware that I did speak with nursing supervisore Saba at [facility]. DENIES: fever, chills, weight changes, night sweats, headache, visual changes, hearing concerns, and respiratory symptoms DENIES: chest pain, shortness of breath, abdominal pain, changes in bowel habits, black stools, andblood in stools DENIES: changes in urinary habits, hematuria, and dysuria DENIES: extremity concerns at this time outside of intermittent rash PAST MEDICAL HISTORY Diagnosis Date Advanced atrophic nonexudative age-related macular degeneration of both eyes with subfoveal involvement At risk for falls Garcia esophagus Dr. Huerta Cataract of both eyes Coronary artery disease Depression with anxiety On Zoloft regularly, on Ativan prn Diverticula of colon Fibromyalgia GERD (gastroesophageal reflux disease) High blood pressure History of peptic ulcer disease Hx of colonic polyps Dr. Huerta Hypercholesterolemia Lumbar spinal stenosis Obesity Osteoarthritis Rheumatic fever without heart involvement As a child, joint pain even as a child fallen arches Uterine fibroid UTI (urinary tract infection) Vitamin D deficiency PAST SURGICAL HISTORY Procedure Laterality Date APPENDECTOMY ARTHRP ACETBLR/PROX FEM PROSTC AGRFT/ALGRFT 02/09/2012 Hip replacement, total left ARTHRP KNE CONDYLE&PLATU MEDIAL&LAT COMPARTMENTS 05/25/2005 left total knee arthroplasty ARTHRP KNE CONDYLE&PLATU MEDIAL&LAT COMPARTMENTS 09/10/2014 right knee EXTENSIVE FOOT SURGERY Right foot bunion, hammer toes bilaterally OOPHORECTOMY PARTIAL/TOTAL UNI/BI same time as hysterectomy PAST SURGICAL HISTORY OF 07/16/2012 colonoscopy, follow up in two years according to report REMV CATARACT EXTRACAP,INSERT LENS Right 11/22/2023 REMV CATARACT EXTRACAP,INSERT LENS Left 12/06/2023 TONSILLECTOMY HX 09/10/1943 TOTAL ABDOMINAL HYSTERECT W/WO RMVL TUBE OVARY 09/10/1990 dysfunctional uterine bleeding FAMILY HISTORY Problem Relation Age of Onset Glaucoma Father Arthritis Father Macular Degen Father Colon Cancer Father Ischemic Heart Disease Father other (Other) Father Glaucoma Mother Arthritis Mother was in bed for 6 years Macular Degen Mother Colon Cancer Mother Strabismus Other cousin Macular Degen Maternal Aunt Macular Degen Paternal Aunt Social History Tobacco Use Smoking status: Never Smokeless tobacco: Never Tobacco comments: did try when she was younger Vaping Use Vaping Use: Never used Substance Use Topics Alcohol use: Not Currently Comment: occasional, 6 glasses of wine per year Drug use: No hydroCHLOROthiazide 25 mg tablet Take 25 mg by mouth once daily. pregabalin (LYRICA) 100 mg capsule Take 100 mg by mouth three times a day. vibegron (GEMTESA) 75 mg tablet Take 1 tablet by mouth once daily. vit C,X-Xw-trbio-lutein-zeaxan (PRESERVISION AREDS-2) 250-90-40-1 mg Take by mouth. hydroCHLOROthiazide 25 mg tablet (Patient not taking: Reported on 12/07/2023) nystatin (MYCOSTATIN) powder Apply 1 application to affected area twice daily. acetaminophen (TYLENOL) 325 mg tablet Take 2 tablets by mouth every 8 hours as needed for pain. pantoprazole DR (PROTONIX) 40 mg tablet TAKE ONE TABLET BY MOUTH ONCE A DAY Fluticasone Propionate (CUTIVATE) 0.05 % cream Apply to affected area as needed. Apply as directed to affected area twice daily hydrOXYzine HCl (ATARAX) 10 mg tablet Take 1 tablet by mouth three times daily as needed for anxiety. aspirin-caffeine (BACK AND BODY PAIN RELIEVER) 500-32.5 mg tab Take by mouth every 6 hours as needed. sertraline (ZOLOFT) 100 mg tablet Take 1 tablet by mouth once daily. ezetimibe (ZETIA) 10 mg tablet Take 1 tablet by mouth once daily. metoprolol succinate ER (TOPROL XL) 50 mg 24 hr tablet Take 1 tablet by mouth once daily. potassium chloride (KLOR-CON 10) 10 mEq tablet Take 1 tablet by mouth twice daily. docusate sodium (COLACE) 100 mg capsule Take 1 capsule by mouth twice daily. Cholecalciferol, Vitamin D3, (VITAMIN D) 1,000 unit Tab Take 2,000 Units by mouth once daily. [place]-3 Fatty Acids-Vitamin E (FISH OIL) 1,000 mg cap Take 1 capsule by mouth once daily. LUTEIN ORAL Take by mouth. ALLERGIES: ALLERGIES Allergen Reactions Rdwdkfv-Dql-Cbi Red* Other: See Comments Lethargic, and muscle and joint pain Clindamycin Rash, Itching Morphine GI Upset, Vomiting Penicillins Rash Percocet [Oxycodone* Intolerance Sulfa (Sulfonamide * Other: See Comments thrush PHYSICAL EXAMINATION: BP 117/64 Pulse 67 Ht 5' 2" (1.58m) Wt 255 lb 1.2 oz (115.7kg) SpO2 95% BMI 46.64 kg/(m^2). GENERAL APPEARANCE: NAD, alert and oriented SKIN: unremarkable, no rash or skin lesions. HEAD: normocephalic EYES: PERRLA, EOMI, conjunctiva clear EARS: external ears normal, canals clear, TM's normal. NOSE/SINUSES: Nares normal. Septum midline. OROPHARYNX: lips, mucosa, and tongue normal, good dentition. No oral lesions noted. NECK: Supple, no lymphadenopathy, normal thyroid, no carotid bruits. LUNGS: Clear to auscultation bilaterally, no wheezes/rhonchi/rales. HEART: Regular rate and rhythm, no murmurs. No ectopy. EXTREMITIES: Normal, No deformities, No skin discoloration, + 2 pitting edema of lower extremities bilaterally. ASSESSMENT/PLAN: 1. Peripheral edema - ICD9: 782.3, ICD10: R60.0 (primary diagnosis) - discussed with pt and with Saba at [facility] ([facility]) my advise that I would advise pt to follow up her her PCP at [facility] re: peripheral edema despite her HCTZ 50 mg daily dose. Would strongly consider provider to consider disaster recovery specialist re: peripheral edema . Saba agrees to inform PPCP Dr Saldaña. 2. Primary hypertension - ICD9: 401.9, ICD10: I10 - good control - cont with meds as prescribed. 3. Chronic neck pain - ICD9: 723.1, 338.29, ICD10: M54.2, G89.29 - med as prescribed. 4. Obesity, Class III, BMI 40-49.9 (morbid obesity) (HCC) - ICD9: 278.01, ICD10: E66.01 - advised to watch carbs/sugars in diet and to exercise as tolerated. 5. Garcia's esophagus with dysplasia - ICD9: 530.85, ICD10: K22.719 - spoke with [facility] - strongly encouraged GI consult. Spoke with pt and Saba at [facility] and related she'd discuss with PCP Dr Saldaña. 6. Mixed hyperlipidemia - ICD9: 272.2, ICD10: E78.2 7. Anxiety and depression - ICD9: 300.00, 311, ICD10: F41.9, F32.A - follow up with psychiatry dept as planned and med as prescribed. I spent a total of >60 minutes on the date of the service which included preparing to see the patient, [id number]-[id number] patient care, completing clinical documentation, obtaining and/or reviewing separately obtained history, performing a medically appropriate examination, counseling and educating the patient/family/caregiver, ordering medications, tests, or procedures, communicating with other HCPs Nursing pest control supervisor Saba at [facility] and also [facility] in [place](notseparately reported), independently interpreting results (not separately reported), communicating re sults to the patient/family/caregiver, and care coordination (not separately reported). Return to office as needed. Strongly encouraged pt to follow up with PCP Dr Saldaña re: peripheral edema lower extremities and to follow up on Garcia's esophagus spoke to nursing pest control supervisor at [facility] re: Saba states she will speak with Dr Saldaña and physician assistance regarding. . Portions of this note have been composed using voice recognition and may contain community sports coordinator errors Delisa Estrella DO documented in this encounterK[facility]07-[facility]24 NoteHNO ID: [id number] Author: DELISA ESTRELLA DO Service: ? Author Type: Physician Type: Progress Notes Filed: 03/16/2024 21:28 Note Text: Yaa Ward is a 83 year old female presenting for evaluation Patient is wishing to reestablish care-she recently moved to [facility] Last office visit with me was on 03/01/2021 Pt currently lives at an assisted living facility " [facility]" in [place] where she follows with a 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 and with PCP Dr Saldaña. I have known pt for ~ 30 yrs and she is wishing to reestablish care here as well. Plans to keep Dr Matute as her PCP but would like to see me 1-2 times a yr to discuss her care. She is aware and I agree that I am willing to make recommendations to help coordinate her care with her PCP. S/p cataract surgery in November on 11/21 and 12/[address] Rojas. Previous PCP Dr Ragsdale (in [place]) retired 2 yrs ago New PCP Dr Saldaña at [facility] has only met the physician on time. Follows most of the time with NEERAJ Latham at [facility] Services: at her Assisted living facility - Dispense medication. - help Cleaning her apartment - Going to PT 3 days this week. Walking with walker always. -3 meals of "carbohydrates and I have gained 50#". The facility serves noodles and mash potatoes together" - persons shop for me -watching [place] on TV. Anxiety/depression Following with psychiatrist Dr. Morales-last seen last week on . Dr Morales advised her to see Janene as he was leaving his practice. Pt is not sure she would like to see Janene. Zoloft 125 mg daily dose. Hypertension/hyperlipidemia No chest pain, no sob Current regimen Metoprolol succinate 12.5 mg one daily. Fenofibrate 150 mg at bedtime. Chronic low back pain Lyrica 100 mg one three times daily History of Baretts esophagus/history of GERD Current regimen Protonix 40 mg daily dose Since in she has not seen a GI as advised that there is no GI provider in [place]. After discussion I did place a call and found closest GI provider in [facility] in [place] Phone number: [phone] Rosario Pt aware and will try to schedule an appt. Pt is aware that I did speak with nursing supervisore Saba at [facility]. 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 Huerta Cataract of both eyes Coronary artery disease Depression with anxiety On Zoloft regularly, on Ativan prn Diverticula of colon Fibromyalgia GERD (gastroesophageal reflux disease) High blood pressure History of peptic ulcer disease Hx of colonic polyps Dr. Huerta Hypercholesterolemia Lumbar spinal stenosis Obesity Osteoarthritis Rheumatic fever without heart involvement As a child, joint pain even as a child fallen arches Uterine fibroid UTI (urinary tract infection) Vitamin D deficiency PAST SURGICAL HISTORY Procedure Laterality Date APPENDECTOMY ARTHRP ACETBLR/PROX FEM PROSTC AGRFT/ALGRFT 02/09/2012 Hip replacement, total left ARTHRP [place] CONDYLEANDPLATU MEDIALANDLAT COMPARTMENTS 05/25/2005 left total knee arthroplasty ARTHRP KNE CONDYLEANDPLATU MEDIALANDLAT COMPARTMENTS 09/10/2014 right knee EXTENSIVE FOOT SURGERY Right foot bunion, hammer toes bilaterally OOPHORECTOMY PARTIAL/TOTAL UNI/BI same time as hysterectomy PAST SURGICAL HISTORY OF 07/16/2012 colonoscopy, follow up in two years according to report REMV CATARACT EXTRACAP,INSERT LENS Right 11/22/2023 REMV CATARACT EXTRACAP,INSERT LENS Left 12/06/2023 TONSILLECTOMY HX 09/10/1943 TOTAL ABDOMINAL HYSTERECT W/WO RMVL TUBE OVARY 09/10/1990 dysfunctional uterine bleeding FAMILY HISTORY Problem Relation Age of Onset Glaucoma Father Arthritis Father Macular Degen Father Colon Cancer Father Ischemic Heart Disease Father other (Other) Father Glaucoma Mother Arthritis Mother was in bed for 6 years Macular Degen Mother Colon Cancer Mother Strabismus Other cousin Macular Degen Maternal Aunt Macular Degen Paternal Aunt Social History Tobacco Use Smoking status: Never Smokeless tobacco: Never Tobacco comments: did try when she was younger Vaping Use Vaping Use: Never used Substance Use Topics Alcohol use: Not Currently Comment: occasional, 6 glasses of wine per year Drug use: No hydroCHLOROthiazide 25 mg tablet Take 25 mg by mouth once daily. pregabalin (LYRICA (more content not included)...[facility] 03-11-2024 Telephone encounter Note* Telephone Encounter - Ariela Saenz - 03/11/2024 10:04 AM EDT Saba with [facility] is calling Delisa Estrella DO today with concern regarding appointment today. Patient lives in a facility right now and the transcription manager of the facility is calling and states that patient has a physician at the facility. Patient is coming in for an appointment and when patient was confronted about the appointment and not being able to have two PCP'S patient states "I am going to see a friend". If patient is wanting to establish care patient did not bring any information Patient has been identified by name and birthdate. Duration of symptoms: N/A Any questions, please call [phone] Closing statement: Results or non-symptom based questions: Thank you for calling [facility], your call will be returned within the next business day. Ariela Saenz [facility]04-11-2024 Miscellaneous Notes* Telephone Encounter - Kay Cummins - 12/20/2023 8:43 AM EDT Patient called back and is scheduled on 03/11/24. * Telephone Encounter - Kay Cummins - 12/19/2023 12:[address] Estrella advised she would accept patient back to re-establish care. Tried to reach patient at both numbers listed in Epic. Was connected with [facility] and advised that we need to contact Ariadna at [phone], who handles all patient scheduling and transport. Called number above and was unable to leave message. Will follow up to offer patient appointment on02/07/2024 at 12:[address] Estrella. * Telephone Encounter - Mary Lou Vidales MA - 12/17/2023 3:44 PM EDT Please see message below and advise. * Telephone Encounter - Reena Grigsby - 12/17/2023 3:33 PM EDT Yaa is calling Delisa Estrella DO today with concern regarding Appointment. She stated she has always been a patient for years, then she moved to assisted living and they told her she had to see the doctor's there. However, she wants Dr. Chan to be her PCP again. In addition, she wants a physical soon; advised patient that Medicare does not pay for physicals and she said she will pay for it herself/. Please ask Dr. Estrella and call her back. Patient has been identified by name and birthdate. Duration of symptoms: N/A Person calling: self Call patient at: at home [phone] (home) [phone] (cell) Was an appointment scheduled: No Closing statement: Results or non-symptom based questions: Thank you for calling [facility], your call will be returned within the next business day. Reena Benitez Pss documented in this encounterKettering Health [facility] Campus03-29-2024 NoteHNO ID: [id number] Author: VINOD ROJAS MD Service: ? Author Type: Physician Type: Progress Notes Filed: 12/07/2023 11:14 Note Text: ASSESSMENT/PLAN: 1. Pseudophakia of both eyes - ICD9: V43.1, ICD10: Z96.1 Right eye 2 weeks POd1 os Patient doing well Use the following drops in the operated eye: Prednisolone 4x/day for 3 weeks. Wear the eye shield at bedtime for one week. Yaa Ward told to call immediately if any increase pain, redness, or loss of vision. 3. 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 - ICD9: 362.51, ICD10: H35.3190 Non-neovascular age-relatedmacular degeneration (dry) advanced stage, both eye -No evidence of exudation on exam -Amsler grid and instructions reviewed -AREDS vitamin supplementation use and instructions reviewed -Signs and symptoms of neovascular macular degeneration (wet) reviewed - OCT (last 2014)- atrophy, EZ loss, no IRF -has been to [facility], uses magnifiers, lights, etc Plan 2 weeks Visual acuity check and Intraocular pressure ?h/o Retinal tear Right eye laser with me I have confirmed and edited as necessary the relevant ophthalmic history, ROS, and the neuro exam findings as obtained by others. I have seen and examined Yaa Ward. I have discussed the case and the management of this patient's care with the Resident/Fellow, if applicable. I also have reviewed and agree with the assessment and plan as stated above and agree with all of its relevant components. Vinod Rojas M.D. December 07, 2023 11:14 [facility]03-15-2024 NoteHNO ID: [id number] Author: VINOD ROJAS MD Service: ? Author Type: Physician Type: Progress Notes Filed: 11/23/2023 09:55 Note Text: ASSESSMENT/PLAN: 1. 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 Patient doing well Use the following drops in the operated eye: Prednisolone 4x/day for 3 weeks. Wear the eye shield at bedtime for one week. Yaa Ward told to call immediately if any increase pain, redness, or loss of vision. 2. Nuclear sclerotic cataract of left eye - ICD9: 366.16, ICD10: H25.12 2. 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 - ICD9: 362.51, ICD10: H35.3190 Non-neovascular age-relatedmacular degeneration (dry) advanced stage, both eye -No evidence of exudation on exam -Amsler grid and instructions reviewed -AREDS vitamin supplementation use and instructions reviewed -Signs and symptoms of neovascular macular degeneration (wet) reviewed - OCT (last 2014)- atrophy, EZ loss, no IRF -has been to [facility], uses magnifiers, lights, etc Plan Cataract extraction Left eye Goal plano Dilates well Pt fully understands will have limited outcome but notices marked decline in vision past 2 yrs May gain more useful Visual acuity ?h/o Retinal tear Right eye laser with me I have confirmed and edited as necessary the relevant ophthalmic history, ROS, and the neuro exam findings as obtained by others. I have seen and examined Yaa Ward. I have discussed the case and the management of this patient's care with the Resident/Fellow, if applicable. I also have reviewed and agree with the assessment and plan as stated above and agree with all of its relevant components. Vinod Rojas M.D. November 23, 2023 9:55 [facility]03-15-2024 History of Present illness Narrative * Vinod Rojas MD - 11/23/2023 9:54 AM EDT ASSESSMENT/PLAN: 1. 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 Patient doing well Use the following drops in the operated eye: Prednisolone 4x/day for 3 weeks. Wear the eye shield at bedtime for one week. Yaa Ward told to call immediately if any increase pain, redness, or loss of vision. 2. Nuclear sclerotic cataract of left eye - ICD9: 366.16, ICD10: H25.12 2. 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 - ICD9: 362.51, ICD10: H35.3190 Non-neovascular age-relatedmacular degeneration (dry) advanced stage, both eye -No evidence of exudation on exam -Amsler grid and instructions reviewed -AREDS vitamin supplementation use and instructions reviewed -Signs and symptoms of neovascular macular degeneration (wet) reviewed - OCT (last 2014)- atrophy, EZ loss, no IRF -has been to [facility], uses magnifiers, lights, etc Plan Cataract extraction Left eye Goal plano Dilates well Pt fully understands will have limited outcome but notices marked decline in vision past 2 yrs May gain more useful Visual acuity ?h/o Retinal tear Right eye laser with me I have confirmed and edited as necessary the relevant ophthalmic history, ROS, and the neuro exam findings as obtained by others. I have seen and examined Yaa Ward. I have discussed the case and the management of this patient's care with the Resident/Fellow, if applicable. I also have reviewed and agree with the assessment and plan as stated above and agree withall of its relevant components. Vinod Rojas M.D. November 23, 2023 9:55 AM documented in this encounterKettering Health [facility]03-12-2024 Miscellaneous Notes* Telephone Encounter - Patience Lin - 11/20/2023 4:58 PM EDT [facility] where Pt resides asked that any RX or speical instruction and rX orders post op instructions to be faxed to them at [phone] to her floor which is [facility]: (To contact the nurse ph no is [phone]) documented in this encounterKettering Health [facility] Campus02-02-2024 Miscellaneous Notes* Telephone Encounter - Estefany Kebede Reshma Kelsey - 10/12/2023 5:03 PM EST Taken care of. spoke to rehabilitation aide/scheduler. * Telephone Encounter - Estefany Kebede Reshma Kelsey - 10/12/2023 11:07 AM EST [facility] returned call to set up surgery. Please call again at [phone] documented in this encounterKettering Health [facility] Campus01-09-2024 NoteHNO ID: [id number] Author: VINOD ROJAS MD Service: ? Author Type: Physician Type: Progress Notes Filed: 09/18/2023 11:19 Note Text: ASSESSMENT/PLAN: 1. Nuclear senile cataract of both eyes - ICD9: 366.16, ICD10: H25.13 (primary diagnosis) Cataract Presurgical Documentation Cataract: Right eye (OD) then Left eye (OS) Current Visual Acuity Right Eye Distance CC HM Left Eye Distance CC HM Glare Testing: Visual Function: Yaa Ward states that the decline in vision from the cataract impedes her abilities as listed in the HPI, as well as other activities of daily living. Yaa Ward has confirmed that she is no longer able to function adequately on a day-to-day basis because of her current visual condition. Further, it is my medical opinion that the cataract is the primary cause, or at least a significantly contributory cause of her visual dysfunction. With uncomplicated cataract surgery and lens implantation, it is my expectation that her visual function and quality of life will improve, significantly. The risks, benefits, alternatives, personnel and complications of cataract surgery with lens implantation were discussed with Yaa Ward in detail. she appeared to understand and asked that I proceed with plans for surgery. 2. 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 - ICD9: 362.51, ICD10: H35.3190 Non-neovascular age-relatedmacular degeneration (dry) advanced stage, both eye -No evidence of exudation on exam -Amsler grid and instructions reviewed -AREDS vitamin supplementation use and instructions reviewed -Signs and symptoms of neovascular macular degeneration (wet) reviewed - OCT (last 2014)- atrophy, EZ loss, no IRF -has been to [facility], uses magnifiers, lights, etc Plan Cataract extraction Right eye then Left eye Goal plano Dilates well Pt fully understands will have limited outcome but notices marked decline in vision past 2 yrs May gain more useful Visual acuity ?h/o Retinal tear Right eye laser with me I have confirmed and edited as necessary the relevant ophthalmic history, ROS, and the neuro exam findings as obtained by others. I have seen and examined Yaa Ward. I have discussed the case and the management of this patient's care with the Resident/Fellow, if applicable. I also have reviewed and agree with the assessment and plan as stated above and agree with all of its relevant components. Vinod Rojas M.D. September 18, 2023 11:17 [facility]09-07-2021 NoteHNO ID: [id number] Author: Baldo Whitney MD Service: General Internal Medicine Author Type: Physician Type: Progress Notes Filed: 05/17/2021 2:59 PM Note Text: PROGRESS NOTE - INTERNAL MEDICINE PATIENT NAME: Yaa Ward SERVICE DATE: 05/17/2021 SERVICE TIME: 11am ADMITTING PHYSICIAN: Baldo Whitney MD ASSESSMENT AND PLAN Generalized weakness --> snf per PT/OT ? Diverticulitis-->c/w cipro and flagyl till 05/22 ? HTN CAD HPL GERD SUBJECTIVE In no acute distress INTERVAL HISTORY No chest pain or sob or nausea or vomiting or symptoms. OBJECTIVE PHYSICAL EXAM: Patient Vitals for the past 24 hrs: BP Temp Temp src Pulse Resp SpO2 05/17/21 1138 148/61 36.7 ?C (98.1 ?F) ? 60 ? 95 % 05/17/21 0855 146/60 36.5 ?C (97.7 ?F) Oral 65 15 97 % 05/17/21 0413 144/59 36.4 ?C (97.5 ?F) Oral 63 17 93 % 05/16/21 2344 135/56 36.6 ?C (97.9 ?F) Oral 65 18 93 % 05/16/21 1611 148/73 36.3 ?C (97.3 ?F) Oral 71 18 97 % Body mass index is 38.98 kg/m?. NEUROLOGICAL: No abnormal movements, no changes from before HEENT: Head atraumatic, perrl,eomi, no oral lesions, no ear rash NECK: Supple, no ln, jvp flat, thyroid palp HEART: S1, S2, no added sound LUNGS: CTAB, no crackles, no rales, no wheezing, no dullness to percussion, sym exp EXTREMITIES: no edema ABDOMEN: Soft, nontender, bowel sound positive, no organomegaly SKIN: No change EYES: No changes, perrl, eomi, ENT: No change JOINT: No change DATA: Diagnostic tests reviewed for today's visit: Most recent labs Most recent imaging Consults notes reviewed Current Facility-Administered Medications Medication Dose Route Frequency - acetaminophen 650 mg tab(s) (TYLENOL) 650 mg ORAL q 8 H PRN - cholecalciferol 2,000 Units tab(s) (VITAMIN D3) 2,000 Units ORAL DAILY - ciprofloxacin HCl 500 mg tab(s) (CIPRO) 500 mg ORAL BID - docusate sodium 100 mg cap(s) (COLACE) 100 mg ORAL BID - ezetimibe 10 mg tab(s) (ZETIA) 10 mg ORAL DAILY - NaCl 0.9% iv flush bag 20 mL INTRAVENOUS PRN - sodium chloride 0.9 % (flush) 3-5 mL (BD POSIFLUSH) 3-5 mL INTRAVENOUS q 12 H - triamcinolone acetonide 0.1 % crea (KENALOG) TOPICAL BID - hydrOXYzine HCl 10 mg tab(s) (ATARAX) 10 mg ORAL TID PRN - metoprolol succinate ER 50 mg tab(s) (TOPROL XL) 50 mg ORAL DAILY - metroNIDAZOLE 250 mg tab(s) (FLAGYL) 250 mg ORAL QID - omega-3 acid ethyl esters 1 g cap(s) (LOVAZA) 1 g ORAL DAILY - pantoprazole DR 40 mg tab(s) (PROTONIX) 40 mg ORAL DAILY (6 AM) - potassium chloride ER 10 mEq tab(s) (K-DUR, KLOR-CON) 10 mEq ORAL BID - sertraline 100 mg tab(s) (ZOLOFT) 100 mg ORAL DAILY Intake/Output Summary (Last 24 hours) at 05/17/2021 1589 Last data filed at 05/17/2021 0900 Gross per 24 hour Intake 120 ml Output 1200 ml Net -1080 ml SIGNATURE: Baldo Whitney MD DATE: May 17, 2021 TIME: 2:58 [facility]09-07-2021 NoteHNO ID: [id number] Author: Nikkie Chery RN Service: Care Management Author Type: Registered Nurse Type: Care Mgt Progress Note Filed: 05/17/2021 12:49 PM Note Text: CARE MANAGEMENT DISCHARGE NOTE SERVICE DATE: 05/17/2021 SERVICE TIME: 12:47 LOS: 0 days Admission Date: 05/15/2021 DISCHARGE ARRANGEMENT (list agency and phone number) [facility]charge Arrangement: [facility] facility Was an expedited discharge program used?: Yes Type: Other: See Comment (COVID WAIVER) Provider Name:Josy Ferris Maria CAREGIVER ASSESSMENT: Caregiver is ready, willing and able to meet the patient's needs as recommended by the inter-professional team:: Yes Does the patient have an acute stroke diagnosis, or has the patient had a stroke during this admission?: No Patient's transition needs and plan for meeting these needs: Josy Salazara Maria HANDOFF COMMUNICATION: Handoff to: Other Caregiver Other Caregiver Name/Phone: Josy Salazara Maria TRANSPORTATION ARRANGEMENTS: Transportation Arrangements: Ambulance/[place] Transportation Agency and Phone #:: [facility] [phone] Date of Trip: 05/17/21 Time of Trip: 1600 Type of Service: BLS Non-emergency Is Patient Medicaid Pending?: No Discussion of financial coverage occurred with: [employer] Location: [facility] Destination: Josy Ferris Maria Financial Care Management Responsibility: None ADDITIONAL CONTACT RESOURCES: Discharge Information Row Name Admission (Current) from 05/15/[address] [facility] Observation Unit Transportation Agency MMT Transport Arranged To: [facility] Agency Josy Holloway and Aden Salazara Maria Caregiver is ready, willing and able to meet the patient's needs as recommended by the inter-professional team:: Yes Does the patient have an acute stroke diagnosis, or has the patient had a stroke during this admission?: No Needs Prior to Discharge: Ready for Discharge;Discharge Transportation Transportation Arrangements: Ambulance/[place] Transportation Agency and Phone #:: [facility] [phone] Date of Trip: 05/17/21 Time of Trip: 1600 Type of Service: BLS Non-emergency Is Patient Medicaid Pending?: No Discussion of financial coverage occurred with: [employer] Location: [facility] Destination: [facility] [place] Financial Care Management Responsibility: None IMM Follow Up Copy Given: No Reason: Other: See Comment (OBSERVATION) Patient discharged to [facility], clinical updates sent. Pt's sonMickey was called and made aware of time of transfer. Summary of Care routed to providers. [facility] will picking belt operator patient at 16:00. SIGNATURE: Nikkie Chery RN PATIENT NAME: Yaa Ward DATE: May 17, 2021 TIME: 12:46 PM PAGER/CONTACT #: [phone] NoteHNO ID: [id number] Author: Nikkie Chery RN Service: Care Management Author Type: Registered Nurse Type: Care Mgt Progress Note Filed: 05/17/2021 10:40 AM Note Text: CARE MANAGEMENT PROGRESS NOTE SERVICE DATE: 05/17/2021 SERVICE TIME: 10:38 LOS: 0 days Whitman of Choice Given: Yes Level of Care Discussed: Senior Care Facility Financial Disclosure Provided: No Provider List: Senior Care Facility Provider list within the patient's requested geographic area shared with the patient/family: Yes within: 5 miles of zip code: [address] Quality and resource use metrics shared with the patient that are relevant to the patient's goals of care and treatment preferences:: Yes Metrics: Skin Integrity;Potentially Preventable 30-day Post Discharge Readmission Rates;Functional Status;Discharge to Community Needs Prior to Discharge: To Be Determined;Precertification;Accepting Facility Spoke with pt's sonMickey regarding facility choices for SNF placement. [facility]'s [facility] Referrals sent. [facility] upon discharge, facility will start precert. [facility] tasked for precert/7000. CM will follow. SIGNATURE: Nikkie Chery RN PATIENT NAME: Yaa Ward DATE: May 17, 2021 TIME: 10:38 AM PAGER/CONTACT #: [id number] NoteHNO ID: [id number] Author: Aman Robertson RN Service: Care Management Author Type: Registered Nurse Type: Care Mgt Initial Assessment Filed: 2021 10:27 AM Note Text: CARE MANAGEMENT: ASSESSMENT AND DISCHARGE PLAN SERVICE DATE: 2021 SERVICE TIME: 10:26 AM PRIMARY CARE PHYSICIAN: Delisa Estrella DO ADMISSION STATUS: Observation Needs Prior to Discharge: Insurance Authorization [facility] Patient/Professional Model 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 Last discharge within 30 days: No Advance Directive: Current Advance Directive: Health Care Power of An Employee Sponsor Or Advocate And In Chart: Yes Up To Date and Valid: Yes Health LiteracyHow often do you need to have someone help you when you read instructions, pamphlets, or other written material from your doctor or pharmacy? : 3 - Sometimes How confident are you filling out medical forms by yourself?: 3 - Somewhat If Patient scores > 3 on either question, the following interventions were put into place:: Use of plain language and active listening with Patient and family;Use concrete and specific phrases, avoid medical jargon;Forms of communication used with patient and family Baseline Mental Status Prior to this Illness what was the patient's Baseline Mental Status?: Alert AND Oriented Prior to this illness, has anyone described the patient having any of the following behaviors?: Not Applicable Relationship of the informant to the patient:: Self Functional Status: Needs Assistance Does Patient Currently Receive Any Community Services or Home Care?: None Equipment Prior to Admission: None SOCIAL: Living Arrangements: Home Lives With: Alone Financial Resources: Retired Primary Contact: Extended Emergency Contact Information Primary Emergency Contact: Joaquin Ward [place] Mobile Relation: Son Secondary Emergency Contact: CAROLYN WARD Mobile Relation: Daughter Supportive Patient Contact:: Yes Contact Resources: Family Caregiver AssessmentCaregiver is ready, willing and able to meet the patient's needs as recommended by the inter-professional team:: Yes Does the patient have an acute stroke diagnosis, or has the patient had a stroke during this admission?: No Patient's perception of need for this admission: Medication Adherance I am convinced of the importance of my prescription medication: 0 - Agree Completely I worry that my prescription medication will do more harm than good to me : 0 - Disagree Completely I feel financially burdened by my [id number] expenses for my prescription medication:: 0 - Disagree Completely Risk Score: 0 Patient is categorized as: Low risk < 2 Are you interested in bedside delivery of your medications? No Is Patient Psychosocially Complex?: No ASSESSMENT AND PLAN: Medical Needs: Medical Needs: None Psychosocial Needs: Psychosocial Needs: None FREEDOM OF CHOICE EXPLAINED: Whitman of Choice Given: Yes Level of Care Discussed: Senior Care Facility Financial Disclosure Provided: No Provider List: Senior Care Facility Provider list within the patient's requested geographic area shared with the patient/family: Yes within: 25 miles of zip code: ([id number]) Quality and resource use metrics shared with the patient that are relevant to the patient's goals of care and treatment preferences:: Yes Metrics: Skin Integrity;Functional Status;Potentially Preventable 30-day Post Discharge Readmission Rates POTENTIAL TRANSITION PLANS Senior Care Facility/Intermediate Care Facility Patient went home from a previous [facility]ital [facility] and SNF provider list emailed to [email or web address]. SIGNATURE: Aman Robertson RN PATIENT NAME: Yaa Ward DATE: 2021 TIME: 10:26 AM PAGER/CONTACT #: [phone] Note HNO ID: [id number] Author: Kathy Delvalle RN Service: Care Management Author Type: Registered Nurse Type: Care Mgt Progress Note Filed: 05/15/2021 12:32 PM Note Text: CARE MANAGEMENT DISCHARGE NOTE SERVICE DATE: 05/15/2021 SERVICE TIME: 12:27 PM LOS: 3 days Admission Date: 05/11/2021 DISCHARGE ARRANGEMENT (list agency and phone number) Discharge Arrangement: Home CAREGIVER ASSESSMENT: Caregiver is ready, willing and able to meet the patient's needs as recommended by the inter-professional team:: Yes Does the patient have an acute stroke diagnosis, or has the patient had a stroke during this admission?: No Patient's transition needs and plan for meeting these needs: pt to return home, declined services HANDOFF COMMUNICATION: Handoff to: Primary Care Physician Primary Care Physician Name/Phone: Dr. Delisa Estrella sent summary of care TRANSPORTATION ARRANGEMENTS: Transportation Arrangements: Car ADDITIONAL CONTACT RESOURCES: none IMM Follow Up Copy Given: Yes Copy given to:: Patient Method: By Phone Pt medically cleared for discharge. Pt will return home, family to provide transportation. Pt has declined any assistance at home at this time. Pt aware of discharge and agreeable. SIGNATURE: Kathy Delvalle RN PATIENT NAME: Yaa Ward DATE: May 15, 2021 TIME: 12:27 PM PAGER/CONTACT #: [phone] NoteHNO ID: [id number] Author: Mika Borjas MD Service: Hospital Medicine Author Type: Physician Type: Progress Notes Filed: 05/14/2021 2:02 PM Note Text: DEPARTMENT OF HOSPITAL MEDICINE PROGRESS NOTE SERVICE DATE: 05/14/2021 SERVICE TIME: 1:56 PM Hospital Medicine/Primary Attending: Mika Borjas MD NIGHT AND WEEKEND COVERAGE: Patient admitted to [facility]. Please page [phone] from 7a-5p for patient issues. From 5p-7am, page the night hospitalist on pager [phone] for patient issues. Subjective INTERVAL HPI: Patient feels improvement, no fever, SNF recommended but patient declined this, staff reports that she needed assistance of 2 people for transfer to chair today, denies any significant pains. MEDICATIONS: Reviewed Objective PHYSICAL EXAM: BP 150/68 Pulse 78 Temp (Src) 97.9 (Oral) Resp 16 Wt 215 lb 11.2 oz (97.8kg) SpO2 96% O2 Therapy: Room Air Awake and alert, obese female, no distress Supple neck , no JVD Mucosa is moist Normal heart sounds, regular rhythm Lungs sound clear anteriorly, no wheeze Abdomen is soft and non tender, bowel sounds heard No leg edema Lines, Drains, and Airways Line Peripheral 05/11/21 0918 Assessment Short Right Antecubital 18 Gauge 3 days Drain External Collection Device 05/12/21 0129 2 days DATA: Diagnostic tests reviewed for today's visit: Most recent labs and imaging results. Assessment/Plan This is a 80 year old female with history of hypertension, peptic ulcer disease, fibromyalgia, depression and anxiety and history of chronic disease presented to the ED with abdominal pain and feeling generalized weakness.She was admitted for acute diverticulitis. Chest x-ray negative for pneumonia. ?CT abdomen pelvis with contrast showed early or mild diverticulitis involving the proximal sigmoid without any abscess perforation or obstruction. ? CT brain was negative for acute intracranial abnormality. ? ? Acute Diverticulitis ?CT abdomen pelvis showed mild diverticulitis without abscess or perforation. Last colonoscopy 2019- mild diverticulosis Patient tolerated full liquid diet, currently advanced to soft diet and tolerating. Zofran for nausea as needed Off IV fluids Continue on Cipro and Flagyl -outpatient GI f/u in 6 weeks- was a patient of Dr Huerta, will need new GI provider- refer to Dr Cullen ? Hypokalemia: Supplement and monitor BMP ? History of CAD Essential hypertension Hyperlipidemia -no chest pain or SOB. -C/w home ZETIA, Torpol xl. -hold HCTZ-Lisinopril for now, monitor blood pressure ? Peptic ulcer disease PPI PO BID TUMS PRN ? Anxiety disorder -zoloft 100 mg -Atarax PRN ? ? Right wrist pain: x-ray of the wrist showed degenerative changes with widening of the scapholunate space suggesting injury to the scapholunate ligament so she was given wrist splint. Started on cipro and flagyl. Transferred to for upper level of care. ? Exudative macular degeneration ? Fibromyalgia; tramadol once with Tylenol ? Social PT/OT- recommended SNF, lives alone, uses walker at home, has kids in town but does not like to bother them Discussed with patient about reconsidering SNF, she is not keen, currently seems unsafe to go home with needing 2 people assistance for transfer. Advised to mobilize more today with assistance, if improving and stable possible home tomorrow with home health care Medication and Non-Pharmacologic VTE Prophylaxis/Anticoagulants Anticoagulant AND Antiplatelet Medications (From admission, onward) Start Dose Route Frequency Last Action Ordered Stop 05/12/21 0100 heparin 5,000 Units injection (Medical Risk Categories) 5,000 Units SUBCUTANEOUS EVERY 12 HOURS Given, 05/14 1137 05/12/21 0043 -- VTE Prophylaxis: VTE prophylaxis appropriate Disposition: [facility] with [facility] Plan of care discussed with: Provider, Patient and RN SIGNATURE: Mika Borjas MD PATIENT NAME: Yaa Ward DATE: May 14, 2021 TIME: 1:56 PM etx [id number] NoteHNO ID: [id number] Author: Genoveva Porras RN Service: Care Management Author Type: Registered Nurse Type: Care Mgt Progress Note Filed: 05/13/2021 3:00 PM Note Text: CARE MANAGEMENT PROGRESS NOTE SERVICE DATE: 05/13/2021 SERVICE TIME: 2:56 PM LOS: 1 day CM met with patient to review PT's recommendation for SNF. Patient declines SNF and home care, stating she manages just fine at home and has everything set up the way she needs. She plans to return home with self-care. No other skilled needs identifed. CM will be available should patient change her mind. SIGNATURE: Genoveva Porras RN PATIENT NAME: Yaa Ward DATE: May 13, 2021 TIME: 2:56 PM PAGER/CONTACT #: [phone] NoteHNO ID: [id number] Author: Toby Shore MD Service: Hospital Medicine Author Type: Physician Type: Progress Notes Filed: 05/13/2021 5:55 PM Note Text: DEPARTMENT OF HOSPITAL MEDICINE PROGRESS NOTE SERVICE DATE: 05/13/2021 SERVICE TIME: 8:59 Am Hospital Medicine/Primary Attending: Toby Shore MD Dr Clint will be assuming care in Am NIGHT AND WEEKEND COVERAGE: [facility] COVERAGE: Patient admitted to [facility] From 0700 - 1630, please contact pager [phone] for patient issues. From 1630 - 07, please contact the Night Hospitalist on pager [phone] for patient issues. Subjective INTERVAL HPI: abd pain and nausea resolved Reports she has upper back pain and neck pain- due to her fibromylagia MEDICATIONS: Reviewed Objective PHYSICAL EXAM: BP 142/97 Pulse 75 Temp (Src) 99.1 (Oral) Resp 16 Wt 215 lb 11.2 oz (97.8kg) SpO2 95% O2 Therapy: Room Air Physical Exam Performed GENERAL: Alert, no distress, cooperative, Obese HEAD/SINUSES: No significant findings EYES: PERRLA, EOMI OROPHARYNX: moist MM LUNGS: Lungs clear to auscultation, Good diaphragmatic excursion CARDIAC: Normal S1 and S2; no rubs, murmurs, or gallops ABDOMEN: Soft, mild LLQ tenderness EXTREMITIES: No edema NEURO: Grossly normal cognition, motor function, and cranial nerves III-XII Lines, Drains, and Airways Line Peripheral 05/11/21 0918 Assessment Short Right Antecubital 18 Gauge 1 day Drain External Collection Device 05/12/21 0129 1 day Reviewed lines and needs to be continued: REASONS: Intravenous fluids and Intravenous antibiotics DATA: Diagnostic tests reviewed for today's visit: Most recent labs and imaging results. Assessment/Plan Active Problems: This is a 80 year old female with history of hypertension, peptic ulcer disease, fibromyalgia, depression and anxiety and history of chronic disease presented to the ED with abdominal pain and feeling generalized weakness.She was admitted for acute diverticulitis. Chest x-ray negative for pneumonia. CT abdomen pelvis with contrast showed early or mild diverticulitis involving the proximal sigmoid without any abscess perforation or obstruction. CT brain was negative for acute intracranial abnormality. Active Problems: #Acute Diverticulitis- x [address] abdomen pelvis showed mild diverticulitis without abscess or perforation. Last colonoscopy 2018- mild diverticulosis ? -FLD as tolerated -Zofran for nausea as needed - Dc fluids -cont on Cipro and Flagyl x 14 days course- -outpatient GI f/u in 6 weeks- was a patient of Dr Huerta, will need new GI provider- refer to Dr Cullen Hypokalemia: K 3.8 ? #HTN #CAD #HLD -no chest pain or SOB. -C/w home ZETIA, Torpol xl. -hold HCTZ-Lisinopril for now while PO ? #PUD: PPI PO BID TUMS PRN ? #KARLEE: -zoloft 100 mg -Atarax PRN Right wrist pain: x-ray of the wrist showed degenerative changes with widening of the scapholunate space suggesting injury to the scapholunate ligament so she was given wrist splint. Started on cipro and flagyl. Transferred to for upper level of care. ? Exudative macular degeneration Fibromyalgia; tramadol once with Tylenol PT/OT- recommended SNF, patient declined, lives alone, uses walker at home, has kids in town but does not like to bother them Resolved Problems: * No resolved hospital problems. * Medication and Non-Pharmacologic VTE Prophylaxis/Anticoagulants Anticoagulant AND Antiplatelet Medications (From admission, onward) Start Dose Route Frequency Last Action Ordered Stop 05/12/21 0100 heparin 5,000 Units injection (Medical Risk Categories) 5,000 Units SUBCUTANEOUS EVERY 12 HOURS Given, 05/12 2303 05/12/21 0043 -- VTE Prophylaxis: VTE prophylaxis appropriate Disposition: Home Plan of care discussed with: Provider, RN, Patient SIGNATURE: Toby Shore MD PATIENT NAME: Yaa Ward DATE: May 13, 2021 TIME: 5:55 PM etx [id number]09-02-[facility]21 NoteHNO ID: [id number] Author: Toby Shore MD Service: Hospital Medicine Author Type: Physician Type: Progress Notes Filed: 05/12/2021 3:54 PM Note Text: DEPARTMENT OF HOSPITAL MEDICINE PROGRESS NOTE SERVICE DATE: 05/12/2021 SERVICE TIME: 3:39 PM Hospital Medicine/Primary Attending: Toby Shore MD NIGHT AND WEEKEND COVERAGE: [facility] COVERAGE: Patient admitted to 4 From 0700 - 163, please contact pager [phone] for patient issues. From 1630 - 0700, please contact the Night Hospitalist on pager [phone] for patient issues. Subjective INTERVAL HPI: abd pain is better, nausea + No dizziness MEDICATIONS: Reviewed Objective PHYSICAL EXAM: BP 108/90 Pulse 42 Temp (Src) 98.1 (Oral) Resp 18 Wt 215 lb 11.2 oz (97.8kg) SpO2 94% O2 Therapy: Room Air Physical Exam Performed GENERAL: Alert, no distress, cooperative, Obese HEAD/SINUSES: No significant findings EYES: PERRLA, EOMI OROPHARYNX: moist MM LUNGS: Lungs clear to auscultation, Good diaphragmatic excursion CARDIAC: Normal S1 and S2; no rubs, murmurs, or gallops ABDOMEN: Soft, mild LLQ tenderness EXTREMITIES: No edema NEURO: Grossly normal cognition, motor function, and cranial nerves III-XII Lines, Drains, and Airways Line Peripheral 05/11/21 0918 Assessment Short Right Antecubital 18 Gauge 1 day Drain External Collection Device 05/12/21 0129 <1 day Reviewed lines and needs to be continued: REASONS: Intravenous fluids and Intravenous antibiotics DATA: Diagnostic tests reviewed for today's visit: Most recent labs and imaging results. Assessment/Plan Active Problems: This is a 80 year old female with history of hypertension, peptic ulcer disease, fibromyalgia, depression and anxiety and history of chronic disease presented to the ED with abdominal pain and feeling generalized weakness.She was admitted for acute diverticulitis. Chest x-ray negative for pneumonia. CT abdomen pelvis with contrast showed early or mild diverticulitis involving the proximal sigmoid without any abscess perforation or obstruction. CT brain was negative for acute intracranial abnormality. Active Problems: #Acute Diverticulitis- x [address] abdomen pelvis showed mild diverticulitis without abscess or perforation. Last colonoscopy 2018- mild diverticulosis ? -CLD as tolerated -Zofran for nausea as needed -D5 NS with KCL -cont on Cipro and Flagyl. -outpatient GI f/u in 6 weeks- was a patient of Dr Huerta, will need new GI provider Hypokalemia: K 3.0- poor intake KCL PO ordered, will add KCL to IVF ? #HTN #CAD #HLD -no chest pain or SOB. -C/w home ZETIA, Torpol xl. -hold HCTZ-Lisinopril for now while PO ? #PUD: PPI PO BID TUMS PRN ? #KARLEE: -zoloft 100 mg -Atarax PRN Right wrist pain: x-ray of the wrist showed degenerative changes with widening of the scapholunate space suggesting injury to the scapholunate ligament so she was given wrist splint. Started on cipro and flagyl. Transferred to for upper level of care. ? Exudative macular degeneration Resolved Problems: * No resolved hospital problems. * Medication and Non-Pharmacologic VTE Prophylaxis/Anticoagulants Anticoagulant AND Antiplatelet Medications (From admission, onward) Start Dose Route Frequency Last Action Ordered Stop 05/12/21 0100 heparin 5,000 Units injection (Medical Risk Categories) 5,000 Units SUBCUTANEOUS EVERY 12 HOURS Given, 05/12 91905/12/21 0043 -- VTE Prophylaxis: VTE prophylaxis appropriate Disposition: Home Plan of care discussed with: Provider, RN, Patient SIGNATURE: Toby Shore MD PATIENT NAME: Yaa Ward DATE: May 12, 2021 TIME: 3:39 PM etx [id number]21 NoteHNO ID: [id number] Author: Iva Wing RN Service: Care Management Author Type: Registered Nurse Type: Care Mgt Initial Assessment Filed: 05/12/2021 10:14 AM Note Text: CARE MANAGEMENT: ASSESSMENT AND DISCHARGE PLAN SERVICE DATE: May 12, 2021 SERVICE TIME: 10:12 AM PRIMARY CARE PHYSICIAN: Delisa Estrella DO ADMISSION STATUS: Inpatient Needs Prior to Discharge: None MEDICAL: [facility] PREFERRED HMO Patient/Professional Model 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 Advance Directive: Current Advance Directive: Health Care Power of An Employee Sponsor Or Advocate And In Chart: Yes Up To Date and Valid: No Consumer Educator Attempted to Assist with AD Completion: Yes Action: Education Provided Health LiteracyHow often do you need to have someone help you when you read instructions, pamphlets, or other written material from your doctor or pharmacy? : 1 - Never How confident are you filling out medical forms by yourself?: 1 - Extremely Baseline Mental Status Prior to this Illness what was the patient's Baseline Mental Status?: Disoriented to Time Prior to this illness, has anyone described the patient having any of the following behaviors?: Not Applicable Relationship of the informant to the patient:: Self Functional Status: Independent Does Patient Currently Receive Any Community Services or Home Care?: None Equipment Prior to Admission: Rollator Scooter;Cane SOCIAL: Living Arrangements: Home Lives With: Alone Primary Contact: Extended Emergency Contact Information Primary Emergency Contact: Joaquin Ward Mobile Relation: Son Caregiver AssessmentCaregiver is ready, willing and able to meet the patient's needs as recommended by the inter-professional team:: No Caregiver needed Does the patient have an acute stroke diagnosis, or has the patient had a stroke during this admission?: No Patient's perception of need for this admission: weakness/fatigue r/t abd pain Medication Adherance I am convinced of the importance of my prescription medication: 0 - Agree Completely I worry that my prescription medication will do more harm than good to me : 0 - Disagree Completely I feel financially burdened by my [id number] expenses for my prescription medication:: 0 - Disagree Completely Risk Score: 0 Are you interested in bedside delivery of your medications? No ASSESSMENT AND PLAN: Medical Needs: Psychosocial Needs: Psychosocial Needs: None FREEDOM OF CHOICE EXPLAINED: POTENTIAL TRANSITION PLANS No Services Indicated Met with patient in room, from home alone, uses cane PRN. Admit for abd pain, at time of assessment feeling better. Noted to have new wrist pain to which she was given a splint. Patient asking about discharge, anticipate home with self care. AD paperwork not complete in chart, crossed out and not all pages identified, she is willing to fill out new AD, department will assist. SIGNATURE: Iva Wing RN PATIENT NAME: Yaa Ward DATE: May 12, 2021 TIME: 10:12 AM PAGER/CONTACT #: Office [phone] Cell/Text [phone] History of Present illness Narrative* Ina Bustillo RT(R) - 03/28/2021 11:30 AM EDT Radiology Service Progress Note PATIENT NAME: Yaa Ward DATE OF SERVICE: March 28, 2021 TIME: 12:12 PM PATIENT IDENTITY VERIFICATION COMPLETED USING TWO (2) IDENTIFIERS: Name and Date of confirmedby patient verbally. FALL SCREENING: Has the patient had 2 falls in the last year or 1 fall with injury or currently using an Ambulatory Assistive Device (Walker, Cane, Wheelchair, Crutches, etc.)? No PATIENT GENDER DATA: Female. status: : No status: NO. PATIENT RELEVANT IMPLANT DATA REVIEWED: Not Applicable RADIOLOGY DEPARTMENT: General X-ray: Exam(s) Completed: Lower Extremity X- Ray(s): Foot, Bilateral Upper Extremity X-Ray(s): Hand, bilateral PERIPHERAL IV DATA: Not applicable SIGNED BY: RT Irene(Darlin) March 28, 2021 12:12 PM [facility] History of Past illness Narrative* Problem Noted Date Diagnosed Date Resolved Date Sacroiliitis 05/03/2018 02/17/2021 Overview: Added automatically from request for surgery [id number] Benign essential HTN 07/29/2015 021 Mixed hyperlipidemia 07/29/2015 021 Overweight(278.02) 11/25/2014 1 Acute gout 11/25/2014 02/17/2021 Gout of foot, unspecified ca use, unspecified chronicity, unspecified laterality 11/12/201402/17 DJD (degenerative joint disease) of hip 12/17/2012 02/17/2021 OA (osteoarthritis) of knee 06/06/2012 02/17/2021 Lumbago 03/25/2012 02/17/2021 Lumbar stenosis 03/25/2012 02/17/2021 Cervicalgia 03/25/2012 02/17/2021 HTN (hypertension) 01/17/2012 Coronary artery disease 01/17/201202/08 Other symptoms referable to lower leg joint 01/16/2005 02/17/2021 documented as of this encounter (statuses as of 07/15/2023) [facility] of Past illness Narrative* Problem Noted Date Diagnosed Date Resolved Date Sacroiliitis 05/03/2018 02/17/2021 Overview: Added automatically from request for surgery [id number] Benign essential HTN 07/29/2015 021 Mixed hyperlipidemia 07/29/2015 021 Overweight(278.02) 11/25/2014 1 Acute gout 11/25/2014 02/17/2021 Gout of foot, unspecified ca use, unspecified chronicity, unspecified laterality 11/12/201402/17 DJD (degenerative joint disease) of hip 12/17/2012 02/17/2021 OA (osteoarthritis) of knee 06/06/2012 02/17/2021 Lumbago 03/25/2012 02/17/2021 Lumbar stenosis 03/25/2012 02/17/2021 Cervicalgia 03/25/2012 02/17/2021 HTN (hypertension) 01/17/2012 Coronary artery disease 01/17/201202/08 Other symptoms referable to lower leg joint 01/16/2005 02/17/2021 documented as of this encounter (statuses as of 10/13/2023) [facility] of Past illness Narrative* Problem Noted Date Diagnosed Date Resolved Date Sacroiliitis 05/03/2018 02/17/2021 Overview: Added automatically from request for surgery [id number] Benign essential HTN 07/29/2015 021 Mixed hyperlipidemia 07/29/2015 021 Overweight(278.02) 11/25/2014 1 Acute gout 11/25/2014 02/17/2021 Gout of foot, unspecified ca use, unspecified chronicity, unspecified laterality 11/12/201402/17 DJD (degenerative joint disease) of hip 12/17/2012 02/17/2021 OA (osteoarthritis) of knee 06/06/2012 02/17/2021 Lumbago 03/25/2012 02/17/2021 Lumbar stenosis 03/25/2012 02/17/2021 Cervicalgia 03/25/2012 02/17/2021 HTN (hypertension) 01/17/2012 Coronary artery disease 01/17/201202/08 Other symptoms referable to lower leg joint 01/16/2005 02/17/2021 documented as of this encounter (statuses as of 11/23/2023) [facility] of Past illness Narrative* Problem Noted Date Diagnosed Date Resolved Date Sacroiliitis 05/03/2018 02/17/2021 Overview: Added automatically from request for surgery [id number] Benign essential HTN 07/29/2015 021 Mixed hyperlipidemia 07/29/2015 021 Overweight(278.02) 11/25/2014 1 Acute gout 11/25/2014 02/17/2021 Gout of foot, unspecified ca use, unspecified chronicity, unspecified laterality 11/12/201402/17 DJD (degenerative joint disease) of hip 12/17/2012 02/17/2021 OA (osteoarthritis) of knee 06/06/2012 02/17/2021 Lumbago 03/25/2012 02/17/2021 Lumbar stenosis 03/25/2012 02/17/2021 Cervicalgia 03/25/2012 02/17/2021 HTN (hypertension) 01/17/2012 1 Coronary artery disease 01/17/201202/08 Other symptoms referable to lower leg joint 01/16/2005 02/17/2021 documented as of this encounter (statuses as of 11/28/2023) [facility] of [facility] illness Narrative* Problem Noted Date Diagnosed Date Resolved Date Sacroiliitis 05/03/2018 02/17/2021 Overview: Added automatically from request for surgery [id number] Benign essential HTN 07/29/2015 021 Mixed hyperlipidemia 07/29/2015 021 Overweight(278.02) 11/25/2014 Acute gout 11/25/2014 02/17/2021 Gout of foot, unspecified ca use, unspecified chronicity, unspecified laterality 11/12/201402/17 DJD (degenerative joint disease) of hip 12/17/2012 02/17/2021 OA (osteoarthritis) of knee 06/06/2012 02/17/2021 Lumbago 03/25/2012 02/17/2021 Lumbar stenosis 03/25/2012 02/17/2021 Cervicalgia 03/25/2012 02/17/2021 HTN (hypertension) 01/17/2012 1 Coronary artery disease 01/17/201202/08 Other symptoms referable to lower leg joint 01/16/2005 02/17/2021 documented as of this encounter (statuses as of 12/20/2023) [facility] noteNo assessment information availableWC[facility] Work Phone: Evaluation note* Diagnosis Inflammatory arthritis Unspecified inflammatory polyarthropathy [facility]* Diagnosis Pseudophakia of right eye- Primary Lens replaced by other means Nuclear sclerotic cataract of left eye Senile nuclear sclerosis Nuclear senile cataract of both eyes [facility]* Diagnosis Peripheral edema- Primary Edema Primary hypertension Unspecified essential hypertension Chronic neck pain Cervicalgia Obesity, Class III, BMI 40-49.9 (morbid obesity) (HCC) Morbid obesity Garcia's esophagus with dysplasia Garcia's esophagus Mixed hyperlipidemia Anxiety and depression Dysthymic disorder [facility]* Diagnosis 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- Primary Garcia's esophagus Change in voice Other voice and resonance disorders Constipation, unspecified constipation type [facility] this [facility]* Diagnosis 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 Lens replaced by other means [facility]* Name Dates Details Instructions not documented [id number] Work Phone: Reason for referral (narrative)* Outpatient Procedure (Routine) - New Request Specialty Diagnoses / Procedures Referred By Denae chu Referred To Contact [facility] Diagnoses 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 Procedures EGD DIAGNOSTIC ESOPHAGOGASTRODUODENOS COPY TRANSORAL DIAGNOSTIC Duc Payan 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.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 [address] [place] [address] [facility] [address] [place] [address] Referral ID Status Reason Start Date Expiration Date Visits Requested Visits Authorized [id number] New Request Auto-Generat ed Referral 04/24/2024 04/24/2025 1 1 [facility] for referral (narrative)No reason for referral information availableWCleveland Clinic [facility] Work Phone: Summary Purpose Family History No Family History Records Found uncle Name Dates Details Family history of cardiac di sorder(V17.49, Z82.49) Status:Active cousin Name Dates Details Family history of cardiac di sorder(V17.49, Z82.49) Status:Active Father Name Dates Details Family history of cardiac di sorder(V17.49, Z82.49) Status:Active Relationship Condition Age at Onset Recorded Date/T wayne father Glaucoma Unknown Arthritis Unknown Macular degeneration Unknown Malignant neoplasm of colon Unknown Ischemic heart disease Unknown mother Glaucoma Unknown aunt Macular degeneration Unknown Advance Directives No Advanced Directives Records FoundDocuments on File Type Date Recorded Patient Professional Model Expl anation Advance Directive(s) 02/19/2013 6:16 AM Documents on File Type Date Recorded Patient Professional Model Expl anation Advance Directive(s) 11/06/2023 11:37 AM Advance Directive(s) 02/19/2013 6:16 AM Documents on File Type Date Recorded Patient Professional Model Expl anation Advance Directive(s) 11/06/2023 11:37 AM Advance Directive(s) 02/19/2013 6:16 AM Chief Complaint and Reason for Visit Chief Complaint INTERMEDIATE LAB WOR K INTERMEDIATE LABWORK Chief Complaint INTERMEDIATE LABWORK Chief Complaint INTERMEDIATE LABWORK NEW CONCERN INTERMEDIATE LAB WORK INTERMEDIATE LABWORK INTERMEDIATE LABWORK Chief Complaint INTERMEDIATE LABWORK NEW CONCERN INTERMEDIATE LAB WORK INTERMEDIATE LABWORK ANNUAL EXAM INTERMEDIATE LABWORK INTERMEDIATE LABWORK Chief Complaint INTERMEDIATE LABWORK NEW CONCERN INTERMEDIATE LAB WORK INTERMEDIATE LABWORK ANNUAL EXAM INTERMEDIATE LABWORK INTERMEDIATE LABWORK INTERMEDIATE LABWORK Chief Complaint INTERMEDIATE LABWORK INTERMEDIATE LABWORK LABWORK LABWORK Chief Complaint LABWORK LABWORK INTERMEDIATE LAB WORK Chief Complaint Admit Date LABWORK August 18, 2024 5 :00am LABWORK August 27, 2024 5:00am INTERMEDIATE LAB WORK September 15, 2024 5:00am INTERMEDIATE LAB WORK September 24, 2024 5:00am INTERMEDIATE LAB WORK October 08, 2024 5:00am INTERMEDIATE LAB WORK October 13, 2024 5:00am LABWORK October 20, 2024 5:00am INTERMEDIATE LAB WORK October 22 5:00am INTERMEDIATE LAB WORK November 05 5:00am LABWORK November 10, 2024 5:00 am INTERMEDIATE LAB WORK November 19, 2024 5 :00am Chief Complaint Admit Date INTERMEDIATE LAB WORK September 15, 2024 5:00am INTERMEDIATE LAB WORK September 24, 2024 5:00am INTERMEDIATE LAB WORK October 08, 2024 5:00am INTERMEDIATE LAB WORK October 13, 2024 5:00am LABWORK October 20, 2024 5:00am INTERMEDIATE LAB WORK October 22 5:00am INTERMEDIATE LAB WORK November 05 5:00am LABWORK November 10, 2024 5:00 am INTERMEDIATE LAB WORK November 19, 2024 5 :00am INTERMEDIATE LAB WORK December 03, 2024 5 :00am LEFT SHOULDER December 22, 2024 3:0 8pm Room 3 December 22, 2024 3:1 5pm Reason for Visit Admit Date Left shoulder pain December 22, 2024 3:0 8pm Primary osteoarthritis, left shoulder Ap ril 2024 3:08pm Chief Complaint Admit Date INTERMEDIATE LAB WORK September 24, 2024 5:00am INTERMEDIATE LAB WORK October 08, 2024 5:00am INTERMEDIATE LAB WORK October 13, 2024 5:00am LABWORK October 20, 2024 5:00am INTERMEDIATE LAB WORK October 22 5:00am INTERMEDIATE LAB WORK November 05 5:00am LABWORK November 10, 2024 5:00 am INTERMEDIATE LAB WORK November 19, 2024 5 :00am INTERMEDIATE LAB WORK December 03, 2024 5 :00am INTERMEDIATE LABWORK December 08, 2024 5: 00am INTERMEDIATE LAB WORK December 17, 2024 5: 00am LEFT SHOULDER December 22, 2024 3:0 8pm Room 3 December 22, 2024 3:1 5pm INTERMEDIATE LAB WORK January 05, 2025 4 :00am GERD, DYSPHAGIA January 09, 2025 3:24pm Reason for Visit Admit Date Left shoulder pain December 22, 2024 3:0 8pm Primary osteoarthritis, left shoulder Ap ril 2024 3:08pm Garcia's esophagus January 09, 2025 3:24pm Chief Complaint Admit Date INTERMEDIATE LAB WORK September 24, 2024 5:00am INTERMEDIATE LAB WORK October 08, 2024 5:00am INTERMEDIATE LAB WORK October 13, 2024 5:00am LABWORK October 20, 2024 5:00am INTERMEDIATE LAB WORK October 22 5:00am INTERMEDIATE LAB WORK November 05 5:00am LABWORK November 10, 2024 5:00 am INTERMEDIATE LAB WORK November 19, 2024 5 :00am INTERMEDIATE LAB WORK December 03, 2024 5 :00am INTERMEDIATE LABWORK December 08, 2024 5: 00am NEW CONCERN December 10, 2024 4:22 pm INTERMEDIATE LAB WORK December 17, 2024 5: 00am LEFT SHOULDER December 22, 2024 3:0 8pm Room 3 December 22, 2024 3:1 5pm INTERMEDIATE LAB WORK January 05, 2025 4 :00am GERD, DYSPHAGIA January 09, 2025 3:24pm Chief Complaint Admit Date INTERMEDIATE LAB WORK September 24, 2024 5:00am INTERMEDIATE LAB WORK October 08, 2024 5:00am INTERMEDIATE LAB WORK October 13, 2024 5:00am LABWORK October 20, 2024 5:00am INTERMEDIATE LAB WORK October 22 5:00am INTERMEDIATE LAB WORK November 05 5:00am LABWORK November 10, 2024 5:00 am INTERMEDIATE LAB WORK November 19, 2024 5 :00am INTERMEDIATE LAB WORK December 03, 2024 5 :00am INTERMEDIATE LABWORK December 08, 2024 5: 00am NEW CONCERN December 10, 2024 4:22 pm INTERMEDIATE LAB WORK December 17, 2024 5: 00am LEFT SHOULDER December 22, 2024 3:0 8pm Room 3 December 22, 2024 3:1 5pm LABWORK December 31, 2024 5:0 0am INTERMEDIATE LAB WORK January 05, 2025 4 :00am GERD, DYSPHAGIA January 09, 2025 3:24pm Chief Complaint Admit Date INTERMEDIATE LAB WORK October 08, 2024 5:00am INTERMEDIATE LAB WORK October 13, 2024 5:00am LABWORK October 20, 2024 5:00am INTERMEDIATE LAB WORK October 22 5:00am INTERMEDIATE LAB WORK November 05 5:00am LABWORK November 10, 2024 5:00 am INTERMEDIATE LAB WORK November 19, 2024 5 :00am INTERMEDIATE LAB WORK December 03, 2024 5 :00am INTERMEDIATE LABWORK December 08, 2024 5: 00am NEW CONCERN December 10, 2024 4:22 pm INTERMEDIATE LAB WORK December 17, 2024 5: 00am LEFT SHOULDER December 22, 2024 3:0 8pm Room 3 December 22, 2024 3:1 5pm LABWORK December 31, 2024 5:0 0am LABWORK January 02, 2025 5:0 0am INTERMEDIATE LAB WORK January 05, 2025 4 :00am GERD, DYSPHAGIA January 09, 2025 3:24pm Chief Complaint Admit Date INTERMEDIATE LAB WORK October 13, 2024 5:00am LABWORK October 20, 2024 5:00am INTERMEDIATE LAB WORK October 22 5:00am INTERMEDIATE LAB WORK November 05 5:00am LABWORK November 10, 2024 5:00 am INTERMEDIATE LAB WORK November 19, 2024 5 :00am INTERMEDIATE LAB WORK December 03, 2024 5 :00am INTERMEDIATE LABWORK December 08, 2024 5: 00am NEW CONCERN December 10, 2024 4:22 pm INTERMEDIATE LAB WORK December 17, 2024 5: 00am LEFT SHOULDER December 22, 2024 3:0 8pm Room 3 December 22, 2024 3:1 5pm LABWORK December 31, 2024 5:0 0am LABWORK January 02, 2025 5:0 0am INTERMEDIATE LAB WORK January 05, 2025 4 :00am GERD, DYSPHAGIA January 09, 2025 3:24pm LABWORK January 14, 2025 5:00am Chief Complaint Admit Date INTERMEDIATE LAB WORK November 05 5:00am LABWORK November 10, 2024 5:00 am INTERMEDIATE LAB WORK November 19, 2024 5 :00am INTERMEDIATE LAB WORK December 03, 2024 5 :00am INTERMEDIATE LABWORK December 08, 2024 5: 00am NEW CONCERN December 10, 2024 4:22 pm INTERMEDIATE LAB WORK December 17, 2024 5: 00am LEFT SHOULDER December 22, 2024 3:0 8pm Room 3 December 22, 2024 3:1 5pm LABWORK December 31, 2024 5:0 0am LABWORK January 02, 2025 5:0 0am INTERMEDIATE LAB WORK January 05, 2025 4 :00am GERD, DYSPHAGIA January 09, 2025 3:24pm LABWORK January 14, 2025 5:00am INTERMEDIATE LAB WORK January 19, 2025 5:0 0am INTERMEDIATE LAB WORK January 28, 2025 5:0 0am Chief Complaint Admit Date INTERMEDIATE LAB WORK December 03, 2024 5 :00am INTERMEDIATE LABWORK December 08, 2024 5: 00am NEW CONCERN December 10, 2024 4:22 pm INTERMEDIATE LAB WORK December 17, 2024 5: 00am LEFT SHOULDER December 22, 2024 3:0 8pm Room 3 December 22, 2024 3:1 5pm LABWORK December 31, 2024 5:0 0am LABWORK January 02, 2025 5:0 0am INTERMEDIATE LAB WORK January 05, 2025 4 :00am GERD, DYSPHAGIA January 09, 2025 3:24pm LABWORK January 14, 2025 5:00am INTERMEDIATE LAB WORK January 19, 2025 5:0 0am INTERMEDIATE LAB WORK January 28, 2025 5:0 0am INTERMEDIATE LAB WORK February 03, 2025 5:0 0am LABWORK February 11, 2025 5:00a m New Concern February 24, 2025 4:18 pm INTERMEDIATE LAB WORK February 25, 2025 4: 00am INTERMEDIATE LAB WORK March 02, 2025 5: 00am INTERMEDIATE LAB WORK March 09, 2025 7: 30pm Additional Source Comments INFORMATION SOURCE (unrecogn ized section and content) DATE CREATED AUTHOR 12/13/2018 [facility] DATE CREATED AUTHOR AUTHOR'S ORGANIZ ATION 12/16/2018 [facility] DATE CREATED AUTHOR AUTHOR'S ORGANIZ ATION 2021 [facility] DATE CREATED AUTHOR AUTHOR'S ORGANIZ ATION 05/18/2021 [facility] DATE CREATED AUTHOR AUTHOR'S ORGANIZ ATION 08/22/2024 [facility] DATE CREATED AUTHOR AUTHOR'S ORGANIZ ATION 04/24/2025 [facility] Goals (unrecognized section and content) Goals may be documented in a n alternate sectionGoals may be documented in an alternate sectionGoals may be documented in an alternate sectionGoals may be documented in an alternate sectionGoals may be documented in an alternate sectionGoals may be documented in an alternate sectionGoals may be documented in an alternate sectionGoals may be documented in an alternate sectionGoals may be documented in an alternate sectionGoals may be documented in an alternate sectionGoals may be documented in an alternate sectionGoals may be documented in an alternate sectionGoals may be documented in an alternate sectionGoals may be documented in an alternate sectionGoals may be documented in an alternate sectionGoals may be documented in an alternate sectionGoals may be documented in an alternate sectionGoals may be documented in an alternate sectionGoals may be documented in an alternate sectionGoals may be documented in an alternate section Care Teams (unrecognized sec tion and content) Team Status: Active Member Role Status Dates Dr. Rodrigue Saldaña MD Primary Care Provider Active Team Status: Inactive Member Role Status Dates Dr. Rodrigue Saldaña MD Primary Care Provider Active Start: November 05, 2024 End: November 05, 2024 Regine DONOVAN FURNITURE DIPPER-C Attending Provider Active Start: November 05, 2024 End: November 05, 2024 Team Status: Inactive Member Role Status Dates Dr. Rodrigue Saldaña MD Primary Care Provider Active Start: November 10, 2024 End: November 10, 2024 Rodrigue DONOVAN MD Attending Provider Active Start: November 10, 2024 End: November 10, 2024 Team Status: Inactive Member Role Status Dates Dr. Rodrigue Saldaña MD Primary Care Provider Active Start: November 19, 2024 End: November 19, 2024 Regine DONOVAN, FURNITURE DIPPER-C Attending Provider Active Start: November 19, 2024 End: November 19, 2024 Team Status: Inactive Member Role Status Dates Dr. Rodrigue Saldaña MD Primary Care Provider Active Start: December 03, 2024 End: December 03, 2024 Regine DONOVAN FURNITURE DIPPER-C Attending Provider Active Start: December 03, 2024 End: December 03, 2024 Team Status: Inactive Member Role Status Dates Dr. Rodrigue Saldaña MD Primary Care Provider Active Start: December 08, 2024 End: December 08, 2024 Rodrigue DONOVAN MD Attending Provider Active Start: December 08, 2024 End: December 08, 2024 Team Status: Inactive Member Role Status Dates Dr. Rodrigue Saldaña MD Primary Care Provider Active Start: December 10, 2024 End: December 10, 2024 Regine Morales NP FURNITURE DIP[employer]-C Attending Provider Active Start: December 10, 2024 End: December 10, 2024 Team Status: Inactive Member Role Status Dates Dr. Rodrigue Saldaña MD Primary Care Provider Active Start: December 17, 2024 End: December 17, 2024 Regine DONOVAN FURNITURE DIPPER-C Attending Provider Active Start: December 17, 2024 End: December 17, 2024 Team Status: Inactive Member Role Status Dates Dr. Rodrigue Saldaña MD Primary Care Provider Active Start: December 22, 2024 End: December 22, 2024 Dr. Rodrigue Saldaña MD Referring Provider Active Start: December 22, 2024 End: December 22, 2024 Arjun Felton MD Attending Provider Active St art: December 22, 2024 End: December 22, 2024 Team Status: Inactive Member Role Status Dates Dr. Rodrigue Saldaña MD Primary Care Provider Active Start: December 22, 2024 End: December 22, 2024 Dr. Reynaldo Martin MD Attending Provider Active S tart: December 22, 2024 End: December 22, 2024 Team Status: Inactive Member Role Status Dates Dr. Rodrigue Saldaña MD Primary Care Provider Active Start: December 31, 2024 End: December 31, 2024 Rodrigue DONOVAN MD Attending Provider Active Start: December 31, 2024 End: December 31, 2024 Team Status: Inactive Member Role Status Dates Dr. Rodrigue Saldaña MD Primary Care Provider Active Start: January 02, 2025 End: January 02, 2025 Rodrigue DONOVAN MD Attending Provider Active Start: January 02, 2025 End: January 02, 2025 Team Status: Inactive Member Role Status Dates Dr. Rodrigue Saldaña MD Primary Care Provider Active Start: January 05, 2025 End: January 05, 2025 Rodrigue DONOVAN MD Attending Provider Active Start: January 05, 2025 End: January 05, 2025 Rodrigue DONOVAN MD Referring Provider Active Start: January 05, 2025 End: January 05, 2025 Team Status: Inactive Member Role Status Dates Dr. Rodrigue Saldaña MD Primary Care Provider Active Start: January 09, 2025 End: January 09, 2025 Dr. Rodrigue Saldaña MD Referring Provider Active Start: January 09, 2025 End: January 09, 2025 WINNIE Chavis Attending Provider Active Start: January 09, 2025 End: January 09, 2025 Team Status: Inactive Member Role Status Dates Dr. Rodrigue Saldaña MD Primary Care Provider Active Start: January 14, 2025 End: January 14, 2025 Rodrigue DONOVAN MD Attending Provider Active Start: January 14, 2025 End: January 14, 2025 Team Status: Inactive Member Role Status Dates Dr. Rodrigue Saldaña MD Primary Care Provider Active Start: January 19, 2025 End: January 19, 2025 YANELIS Cochran Attending Provider Active Start: January 19, 2025 End: January 19, 2025 Team Status: Active Member Role Status Dates Dr. Rodrigue Saldaña MD Primary Care Provider Active Start: January 28, 2025 Rodrigue DONOVAN MD Attending Provider Active Start: January 28, 2025 Team Status: Active Member Role Status Dates Dr. Rodrigue Saldaña MD Primary Care Provider Active Start: February 03, 2025 Rodrigue DONOVAN MD Attending Provider Active Start: February 03, 2025 Team Status: Active Member Role Status Dates Dr. Rodrigue Saldaña MD Primary Care Provider Active Start: February 11, 2025 Rodrigue DONOVAN MD Attending Provider Active Start: February 11, 2025 Team Status: Active Member Role Status Dates Dr. Rodrigue Saldaña MD Primary Care Provider Active Start: October 13, 2024 Rodrigue DONOVAN MD Attending Provider Active Start: October 13, 2024 Team Status: Active Member Role Status Dates Dr. Rodrigue Saldaña MD Primary Care Provider Active Start: October 20, 2024 Rodrigue DONOVAN MD Attending Provider Active Start: October 20, 2024 Team Status: Active Member Role Status Dates Dr. Rodrigue Saldaña MD Primary Care Provider Active Start: October 22, 2024 Rodrigue DONOVAN MD Attending Provider Active Start: October 22, 2024 Team Status: Active Member Role Status Dates Dr. Rodrigue Saldaña MD Primary Care Provider Active Start: January 19, 2025 YANELIS Cochran Attending Provider Active Start: January 19, 2025 Team Status: Inactive Member Role Status Dates Dr. Rodrigue Saldaña MD Primary Care Provider Active Start: September 24, 2024 End: September 24, 2024 Rodrigue DONOVAN MD Attending Provider Active Start: September 24, 2024 End: September 24, 2024 Team Status: Inactive Member Role Status Dates Dr. Rodrigue Saldaña MD Primary Care Provider Active Start: October 08, 2024 End: October 08, 2024 Rodrigue DONOVAN MD Attending Provider Active Start: October 08, 2024 End: October 08, 2024 Team Status: Active Member Role Status Dates Dr. Rodrigue Saldaña MD Primary Care Provider Active Start: December 31, 2024 Rodrigue DONOVAN MD Attending Provider Active Start: December 31, 2024 Team Status: Active Member Role Status Dates Dr. Rodrigue Saldaña MD Primary Care Provider Active Start: January 02, 2025 Rodrigue DONOVAN MD Attending Provider Active Start: January 02, 2025 Team Status: Active Member Role Status Dates Dr. Rodrigue Saldaña MD Primary Care Provider Active Start: January 14, 2025 Rodrigue DONOVAN MD Attending Provider Active Start: January 14, 2025 Team Status: Active Member Role Status Dates Dr. Aman Ragsdale MD Primary Care Provider Active Team Status: Inactive Member Role Status Dates Dr. Aman Ragsdale MD Primary Care Provider Active Rodrigue DONOVAN MD Attending Provider Active Team Status: Inactive Member Role Status Dates Dr. Aman Ragsdale MD Primary Care Provider Active YANELIS Cochran Attending Provider Active Team Status: Inactive Member Role Status Dates Dr. Aman Ragsdale MD Primary Care Provider Active Regine Morales NP, NP-C Attending Provider Active Team Status: Active Member Role Status Dates Dr. Aman Ragsdale MD Primary Care Provider Active Dr. Rodrigue Saldaña MD Attending Provider Active Team Status: Inactive Member Role Status Dates Dr. Aman Ragsdale MD Primary Care Provider Active Rodrigue DONOVAN MD Attending Provider, Referring Provider Active Team Status: Inactive Member Role Status Dates Dr. Aman Ragsdale MD Primary Care Provider Active KONRAD SÁNCHEZ Attending Provider Active Company Secretary Relationship Specialty Start Date End Date Delisa Estrella DO [address] [place] [address] PCP - General Family Medicine 03/01/21 Team Status: Inactive Member Role Status Dates Dr. Aman Ragsdale MD Primary Care Provider Active Dr. Rodrigue Saldaña MD Attending Provider Active Team Status: Active Member Role Status Dates Dr. Aman Ragsdale MD Primary Care Provider Active Rodrigue DONOVAN MD Attending Provider Active Company Secretary Relationship Specialty Start Date End Date Delisa Estrella DO [address] [place] [address] PCP - General Family Medicine 03/01/21 Company Secretary Relationship Specialty Start Date End Date Oleghe, Efewongbe [address] [place], [place] [id number] PCP - General 11/16/23 Company Secretary Relationship Specialty Start Date End Date Oleghe, [place]fewongbe [address] [place] [id number] PCP - General 11/16/23 Company Secretary Relationship Specialty Start Date End Date Oleghe, Efewongbe PCP - General 11/16/23 Company Secretary Relationship Specialty Start Date End Date Oleghe, Efewongbe PCP - General 11/16/23 Company Secretary Relationship Specialty Start Date End Date Oleghe, Efewongbe PCP - General 11/16/23 Company Secretary Relationship Specialty Start Date End Date Oleghe, Efewongbe PCP - General 11/16/23 Company Secretary Relationship Specialty Start Date End Date Oleghe, Efewongbe PCP - General 11/16/23 Team Status: Active Member Role Status Dates Dr. Rodrigue Saldaña MD Primary Care Provider Active Start: August 18, 2024 Rodrigue DONOVAN MD Attending Provider Active Start: August 18, 2024 Team Status: Active Member Role Status Dates Dr. Rodrigue Saldaña MD Primary Care Provider Active Start: August 27, 2024 Rodrigue DONOVAN MD Attending Provider Active Start: August 27, 2024 Team Status: Active Member Role Status Dates Dr. Rodrigue Saldaña MD Primary Care Provider Active Start: September 15, 2024 Rodrigue DONOVAN MD Attending Provider Active Start: September 15, 2024 Team Status: Active Member Role Status Dates Dr. Rodrigue Saldaña MD Primary Care Provider Active Start: November 10, 2024 Rodrigue DONOVAN MD Attending Provider Active Start: November 10, 2024 Team Status: Active Member Role Status Dates Dr. Rodrigue Saldaña MD Primary Care Provider Active Start: November 19, 2024 Regine DONOVAN FURNITURE DIPPER-C Attending Provider Active Start: November 19, 2024 Team Status: Active Member Role Status Dates Dr. Rodrigue Saldaña MD Primary Care Provider Active Start: December 03, 2024 Regine DONOVAN, FURNITURE DIPPER-C Attending Provider Active Start: December 03, 2024 Team Status: Active Member Role Status Dates Dr. Rodrigue Saldaña MD Primary Care Provider Active Start: December 08, 2024 Rodrigue DONOVAN MD Attending Provider Active Start: December 08, 2024 Team Status: Active Member Role Status Dates Dr. Rodrigue Saldaña MD Primary Care Provider Active Start: December 17, 2024 Regine DONOVAN FURNITURE DIPPER-C Attending Provider Active Start: December 17, 2024 Team Status: Active Member Role/Relationship Status Dates Dr. Rodrigue Saldaña MD Primary Care Provider Active Team Status: Inactive Member Role/Relationship Status Dates Dr. Rodrigue Saldaña MD Primary Care Provider Active Start: December 03, 2024 End: December 03, 2024 Regine DONOVAN FURNITURE DIPPER-C Attending Provider Active Start: December 03, 2024 End: December 03, 2024 Team Status: Inactive Member Role/Relationship Status Dates Dr. Rodrigue Saldaña MD Primary Care Provider Active Start: December 08, 2024 End: December 08, 2024 Rodrigue DONOVAN MD Attending Provider Active Start: December 08, 2024 End: December 08, 2024 Team Status: Inactive Member Role/Relationship Status Dates Dr. Rodrigue Saldaña MD Primary Care Provider Active Start: December 10, 2024 End: December 10, 2024 Regine Morales NP FURNITURE DIPPER-C Attending Provider Active Start: December 10, 2024 End: December 10, 2024 Team Status: Inactive Member Role/Relationship Status Dates Dr. Rodrigue Saldaña MD Primary Care Provider Active Start: December 17, 2024 End: December 17, 2024 YANELIS Cochran Attending Provider Active Start: December 17, 2024 End: December 17, 2024 Team Status: Inactive Member Role/Relationship Status Dates Dr. Rodrigue Saldaña MD Primary Care Provider Active Start: December 22, 2024 End: December 22, 2024 Dr. Rodrigue Saldaña MD Referring Provider Active Start: December 22, 2024 End: December 22, 2024 Arjun Felton MD Attending Provider Active St art: December 22, 2024 End: December 22, 2024 Team Status: Inactive Member Role/Relationship Status Dates Dr. Rodrigue Saldaña MD Primary Care Provider Active Start: December 22, 2024 End: December 22, 2024 Dr. Reynaldo Martin MD Attending Provider Active S tart: December 22, 2024 End: December 22, 2024 Team Status: Inactive Member Role/Relationship Status Dates Dr. Rodrigue Saldaña MD Primary Care Provider Active Start: December 31, 2024 End: December 31, 2024 Rodrigue DONOVAN MD Attending Provider Active Start: December 31, 2024 End: December 31, 2024 Team Status: Inactive Member Role/Relationship Status Dates Dr. Rodrigue Saldaña MD Primary Care Provider Active Start: January 02, 2025 End: January 02, 2025 Rodrigue DONOVAN MD Attending Provider Active Start: January 02, 2025 End: January 02, 2025 Team Status: Inactive Member Role/Relationship Status Dates Dr. Rodrigue Saldaña MD Primary Care Provider Active Start: January 05, 2025 End: January 05, 2025 Rodrigue DONOVAN MD Attending Provider Active Start: January 05, 2025 End: January 05, 2025 Rodrigue DONOVAN MD Referring Provider Active Start: January 05, 2025 End: January 05, 2025 Team Status: Inactive Member Role/Relationship Status Dates Dr. Rodrigue Saldaña MD Primary Care Provider Active Start: January 09, 2025 End: January 09, 2025 Dr. Rodrigue Saldaña MD Referring Provider Active Start: January 09, 2025 End: January 09, 2025 WINNIE Chavis Attending Provider Active Start: January 09, 2025 End: January 09, 2025 Team Status: Inactive Member Role/Relationship Status Dates Dr. Rodrigue Saldaña MD Primary Care Provider Active Start: January 14, 2025 End: January 14, 2025 Rodrigue DONOVAN MD Attending Provider Active Start: January 14, 2025 End: January 14, 2025 Team Status: Inactive Member Role/Relationship Status Dates Dr. Rodrigue Saldaña MD Primary Care Provider Active Start: January 19, 2025 End: January 19, 2025 Regine DONOVAN NP-C Attending Provider Active Start: January 19, 2025 End: January 19, 2025 Team Status: Active Member Role/Relationship Status Dates Dr. Rodrigue Saldaña MD Primary Care Provider Active Start: January 28, 2025 Rodrigue DONOVAN MD Attending Provider Active Start: January 28, 2025 Team Status: Active Member Role/Relationship Status Dates Dr. Rodrigue Saldaña MD Primary Care Provider Active Start: February 03, 2025 Rodrigue DONOVAN MD Attending Provider Active Start: February 03, 2025 Team Status: Active Member Role/Relationship Status Dates Dr. Rodrigue Saldaña MD Primary Care Provider Active Start: February 11, 2025 Rodrigue DONOVAN MD Attending Provider Active Start: February 11, 2025 Team Status: Inactive Member Role/Relationship Status Dates Dr. Rodrigue Saldaña MD Primary Care Provider Active Start: February 24, 2025 End: February 24, 2025 Regine Morales NP FURNITURE DIPPER-C Attending Provider Active Start: February 24, 2025 End: February 24, 2025 Team Status: Active Member Role/Relationship Status Dates Dr. Rodrigue Saldaña MD Primary Care Provider Active Start: February 25, 2025 Regine DONOVAN FURNITURE DIPPER-C Attending Provider Active Start: February 25, 2025 Regine DONOVAN FURNITURE DIPPER-C Referring Provider Active Start: February 25, 2025 Team Status: Active Member Role/Relationship Status Dates Dr. Rodrigue Saldaña MD Primary Care Provider Active Start: March 02, 2025 Rodrigue DONOVAN MD Attending Provider Active Start: March 02, 2025 Team Status: Active Member Role/Relationship Status Dates Dr. Rodrigue Saldaña MD Primary Care Provider Active Start: March 09, 2025 Rodrigue DONOVAN MD Attending Provider Active Start: March 09, 2025 Team Status: Inactive Member Role/Relationship Status Dates Dr. Rodrigue Saldaña MD Primary Care Provider Active Start: March 10, 2025 Dr. Candis Jordan MD Attending Provider Active Start: March 10, 2025 Team Status: Active Member Role/Relationship Status Dates Dr. Rodrigue Saldaña MD Primary Care Provider Active Start: March 30, 2025 Rodrigue DONOVAN MD Attending Provider Active Start: March 30, 2025 Source Comments (unrecognize d section and content) In the event this informatio n is protected by the Federal Confidentiality of Alcohol and Drug Abuse Patient Records regulations: The Federal rules restrict any use of the information to criminally investigate or prosecute any alcohol or drug abuse patient.[facility] the event this information is protected by the Federal Confidentiality of Alcohol and Drug Abuse Patient Records regulations: The Federal rules restrict any use of the information to criminally investigate or prosecute any alcohol or drug abuse patient.[facility] the event this information is protected by the Federal Confidentiality of Alcohol and Drug Abuse Patient Records regulations: The Federal rules restrict any use of the information to criminally investigate or prosecute any alcohol or drug abuse patient.[facility] the event this information is protected by the Federal Confidentiality of Alcohol and Drug Abuse Patient Records regulations: The Federal rules restrict any use of the information to criminally investigate or prosecute any alcohol or drug abuse patient.[facility] the event this information is protected by the Federal Confidentiality of Alcohol and Drug Abuse Patient Records regulations: The Federal rules restrict any use of the information to criminally investigate or prosecute any alcohol or drug abuse patient.[facility] the event this information is protected by the Federal Confidentiality of Alcohol and Drug Abuse Patient Records regulations: The Federal rules restrict any use of the information to criminally investigate or prosecute any alcohol or drug abuse patient.[facility] the event this information is protected by the Federal Confidentiality of Alcohol and Drug Abuse Patient Records regulations: The Federal rules restrict any use of the information to criminally investigate or prosecute any alcohol or drug abuse patient.[facility] the event this information is protected by the Federal Confidentiality of Alcohol and Drug Abuse Patient Records regulations: The Federal rules restrict any use of the information to criminally investigate or prosecute any alcohol or drug abuse patient.[facility] the event this information is protected by the Federal Confidentiality of Alcohol and Drug Abuse Patient Records regulations: The Federal rules restrict any use of the information to criminally investigate or prosecute any alcohol or drug abuse patient.[facility] Reason for Visit (unrecogniz ed section and content) Reason Comments Schedule Surgery Reason Comments Post-op (Ophthalmology) Right Eye Reason Comments [facility]DERS [facility] Patient Update Reason Comments Appointment Previous patient Reason Comments appointment today Reason Comments Establish Care [facility]isted living [facility]. Rash Both legs- seeping w ater Reason Comments Garcia's Esophagus Voice change Constipation Bloating Reason Comments Comprehensive Health Assessment FOR RECORDS PERTAINING TO PATIENTS WHO ARE OR HAVE BEEN ENROLLED IN A CHEMICAL DEPENDENCY/SUBSTANCEABUSE PROGRAM, SOME INFORMATION MAY BE OMITTED. This clinical summary was aggregated from multiple sources. Caution should be exercised in using it in the provision of clinical care. This summary normalizes information from multiple sources, and as a consequence, information in this document may materially change the coding, format and clinical context of patient data. In addition, data may be omitted in some cases. CLINICAL DECISIONS SHOULD BE BASED ON THE PRIMARY CLINICAL RECORDS. [email or web address] [facility]. provides no warranty or guarantee of the accuracy or completeness of information in this document.
[2025-04-27 08:23] LABS: Hematocrit 34.7 % (37-47); Hemoglobin 11.3 g/dL (12.0-15.0); Immature Granulocytes Count 0.020 X10^3/uL (0.0-0.0); Mean Corp Hgb Conc 32.6 g/dL (32-36); Mean Corpuscular Volume 89.9 fL (81-99); Mean Platelet Vol. 9.6 fl (6.2-12.0); NRBC Flagged by Analyzer 0 % (0-5); Platelet Count 166 K/mm3 (150-450); RBC Distribution Width CV 16.1 % (11.6-14.6); RBC Distribution Width SD 52.7 fl (35.1-43.9); Red Blood Count 3.86 M/mm3 (4.2-5.4); White Blood Count 7.5 K/mm3 (4.4-11.0)
[2025-04-27 08:39] LABS: Anion Gap 14 (5-15); BUN 36 mg/dL (4-19); BUN/Creat Ratio 23.6 RATIO (10-20); Calcium,Total 8.7 mg/dL (7.6-11.0); Carbon Dioxide 23.6 mmol/L (21.0-32.0); Chloride 103 mmol/L (98-108); Glucose 93 mg/dL (70-99); Potassium 3.9 mmol/L (3.3-5.1)
== END ==
LOC: OLS.WHLTSB 05:00
PROVIDERS: PCP Internal Medicine; Visit Provider Internal Medicine
DX: E87.6 Hypokalemia (principal)
CPT/HCPCS: 36415; 80048; 85025

== ENCOUNTER → 2025-05-25 05:00 | Outpatient (REF) | payer MEDICARE, MEDICAID, SELFPAY ==
--- OUTSIDE RECORDS SUMMARY | 2025-05-25 04:24 | XMS RPT_ITS | CCD ---
Author Organization [place] [facility] Care Team Providers Care Regulator Mechanic Name Role Phone Jason Willett Attending Unavailable Reema Cantu Primary Care Unavailable Vinod Fulton MD Unavailable Unavailab Eliseo Cordon MD Unavailable Unavailable Reema Cantu DO Unavailable Unavailable Reema Cantu Unavailable Unavailable Jason Willett MD Unavailable Unavailable Clint Ye MD Unavailable Unavailable Dr. Aman Ragsdale Primary Care Provider Andrew SOFTWARE RELIABILITY ENGINEER, SOFTWARE RELIABILITY ENGINEER-C Regine Attending Provider Unav lisaable Delisa Estrella DO Primary Care Provider Dr. Aman Ragsdale Primary Care Provider Andrew SOFTWARE RELIABILITY ENGINEER, SOFTWARE RELIABILITY ENGINEER-C Regine Attending Provider Unav lisaable Dr. Rodrigue [...] FOUNTAIN, Rodrigue Attending Provider Unavaila zeeshan Morales SOFTWARE RELIABILITY ENGINEER-CRegine Attending Provider [phone] Piper FOUNTAIN, Dr. Husain Primary Care Provider Rodrigue Saldaña MD Attending Provider Unavailannabel Saldaña MD, Dr. Husain Referring Provider [phone] Arjun eFlton MD Attending Provider [phone] Mario FOUNTAIN, Dr. Jacobs Attending Provider Piper FOUNTAIN, Dr. Husain Primary Care Provider Piper FOUNTAIN, Rodrigue Attending Provider Unavailannabel Saldaña MD, Rodrigue Referring Provider Unavaila Elvi Siddiqui Attending Provider Andrew SOFTWARE RELIABILITY ENGINEER-C, Regine Attending Provider Piper FOUNTAIN, Dr. Husain Primary Care Provider Rodrigue Saldaña MD Attending Provider Unavailannabel Saldaña MD, Dr. Husain Primary Care Provider Piper FOUNTAIN, Rodrigue Attending Provider Unavailannabel Saldaña MD, Dr. Husain Primary Care Provider Rodrigue Saldaña MD Attending Provider Unavailannabel Saldaña MD, Dr. Husain Primary Care Provider Andrew SOFTWARE RELIABILITY ENGINEER-C, Regine Attending Provider [phone] Rodrigue Saldaña MD Attending Provider Unavaila ble Andrew SOFTWARE RELIABILITY ENGINEER-CRegine Referring Provider [phone] Nikki FOUNTAIN, Dr. Chirinos Attending Provider Rodrigue Samson Attending Unavailabl e Oleghe, Efewongbe Primary Care Unavailable Olejaspreete Rodrigue DONOVAN Attending Unavailabl e Oleghe, Efewongbe Primary Care Unavailable Oleghe Rodrigue DONOVAN Attending Unavailabl e Oleghe, Efewongbe Primary Care Unavailable Oleghe OLS, Efewongbe Attending Unavailabl e Oleghe, Efewongbe Primary Care Unavailable Tickton VENUS Regine Attending Unavailable Oleghe, Efewongbe Primary Care Unavailable Oleghe OLS, Efewongbe Attending Unavailabl e Oleghe, Efewongbe Primary Care Unavailable Oleghe OLS, Efewongbe Attending Unavailabl e Oleghe, Efewongbe Primary Care Unavailable Bam, Osvaldo Attending Unavailable Bam, Osvaldo Referring Unavailable Oleghe, Efewongbe Primary Care Unavailable Oleghe OLS, Efewongbe Attending Unavailabl e Oleghe, Efewongbe Primary Care Unavailable Oleghe OLS, Efewongbe Attending Unavailabl e Oleghe, Efewongbe Primary Care Unavailable Tickton Regine DONOVAN Attending Unavailable Oleghe, Efewongbe Primary Care Unavailable Oleghe OLS, Efewongbe Attending Unavailabl e Aman Ragsdale Primary Care Unavailable Gomer Aman Dalila Primary Care Unavailable Oleghe OLS, Efewongbe Attending Unavailabl e Oleghe OLS, Efewongbe Attending Unavailabl e Jn Aman Dalila Primary Care Unavailable Oleghe, Efewongbe Primary Care Unavailable Oleghe OLS, Efewongbe Attending Unavailabl e Oleghe, Efewongbe Primary Care Unavailable Oleghe OLS, Efewongbe Attending Unavailabl e Oleghe, Efewongbe Primary Care Unavailable Oleghe OLS, Efewongbe Attending Unavailabl e Oleghe, Efewongbe Primary Care Unavailable Oleghe OLS, Efewongbe Attending Unavailabl e Sugar, Miguel Attending Unavailable Oleghe, Efewongbe Referring Unavailable Oleghe, Efewongbe Primary Care Unavailable Tickton SOFTWARE RELIABILITY ENGINEER Regine Attending Unavailable Oleghe, Efewongbe Primary Care Unavailable Elvi Perez Attending Unavailable Oleghe, Efewongbe Referring Unavailable Oleghe, Efewongbe Primary Care Unavailable Oleghe OLS, Efewongbe Attending Unavailabl e Oleghe, Efewongbe Primary Care Unavailable Tickton VENUS Regine Attending Unavailable Oleghe, Efewongbe Primary Care Unavailable Oleghe, Efewongbe Primary Care Unavailable Oleghe, Efewongbe Attending Unavailable Tickton SOFTWARE RELIABILITY ENGINEER, Regine Attending Unavailable Oleghe, Efewongbe Primary Care Unavailable Oleghe, Efewongbe Referring Unavailable Arjun Felton Attending Unavailable Oleghe, Efewongbe Primary Care Unavailable Bam, Osvaldo Attending Unavailable Bam, Osvaldo Referring Unavailable Bam, Osvaldo Consulting Unavailable Oleghe, Efewongbe Primary Care Unavailable Bam, Osvaldo Attending Unavailable Bam, Osvaldo Referring Unavailable Oleghe, Efewongbe Primary Care Unavailable Nikkie Robertson NP Attending Unavailable Oleghe, Efewongbe Primary Care Unavailable Reynaldo Martin Attending Unavailable Oleghe, Efewongbe Primary Care Unavailable Andrew SOFTWARE RELIABILITY ENGINEERRegine Attending Unavailable Oleghe, Efewongbe Primary Care Unavailable Bam, Osvaldo Attending Unavailable Oleghe, Efewongbe Referring Unavailable Oleghe, Efewongbe Primary Care Unavailable Andrew SOFTWARE RELIABILITY ENGINEER, Regine Attending Unavailable Oleghe, Efewongbe Primary Care Unavailable Oleghe OLS, Efewongbe Attending Unavailabl e Oleghe, Efewongbe Primary Care Unavailable Oleghe OLS, Efewongbe Referring Unavailabl e Oleghe, Efewongbe Primary Care Unavailable Oleghe OLS, Efewongbe Attending Unavailabl e Oleghe OLS, Efewongbe Attending Unavailabl e Oleghe OLS, Efewongbe Referring Unavailabl e Oleghe, Efewongbe Primary Care Unavailable Regine Melgar Attending Unavailable Oleghe, Efewongbe Primary Care Unavailable Oleghe OLS, Efewongbe Attending Unavailabl e Oleghe, Efewongbe Primary Care Unavailable Oleghe OLS, Efewongbe Attending Unavailabl e Oleghe, Efewongbe Primary Care Unavailable Oleghe OLS, Efewongbe Attending Unavailabl e Oleghe, Efewongbe Primary Care Unavailable Oleghe OLS, Efewongbe Attending Unavailabl e Oleghe, Efewongbe Primary Care Unavailable Oleghe OLS, Efewongbe Referring Unavailabl e Oleghe OLS, Efewongbe Attending Unavailabl e Oleghe, Efewongbe Primary Care Unavailable Oleghe OLS, Efewongbe Attending Unavailabl Aman Lott Primary Care Unavailable Aman Ragsdale Primary Care Unavailable Oleghe OLS, Efewongbe Attending Unavailabl e Oleghe, Efewongbe Primary Care Unavailable Oleghe OLS, Efewongbe Attending Unavailabl e Oleghe, Efewongbe Referring Unavailable Oleghe, Efewongbe Attending Unavailable Oleghe, Efewongbe Primary Care Unavailable Oleghe, Efewongbe Attending Unavailable Oleghe, Efewongbe Referring Unavailable Oleghe, Efewongbe Primary Care Unavailable Oleghe, Efewongbe Primary Care Unavailable Oleghe OLS, Efewongbe Attending Unavailabl e Tickton OLS, Regine Attending Unavailable Oleghe, Efewongbe Primary Care Unavailable Oleghe OLS, Efewongbe Attending Unavailabl e Oleghe, Efewongbe Primary Care Unavailable Oleghe OLS, Efewongbe Attending Unavailabl e Oleghe, Efewongbe Primary Care Unavailable Tickton OLS, Regine Attending Unavailable Tickton OLS, Regine Referring Unavailable Oleghe, Efewongbe Primary Care Unavailable Oleghe [...] [OXYCODONE-ACETAM INOPHEN] Drug Allergy 01-17-20 16 Intolerance [facility] (20 sources) Clindamycin; Translations: [CLINDAMYCIN] Drug Allergy 01-17-20 12 Rash, Itching [facility] (10 sources) HMG-CoA reductase inhibitor; Translations: [ZEIBXYR-HCI-DBZ REDUCTASE INHIBITORS] Drug Intolerance 01-23-20 12 Other: See Comments [facility] (20 sources) Morphine; Translations: [MORPHINE] Drug Allergy 06-11-20 12 GI Upset, Vomiting [facility] Work Phone: (10 sources) Penicillins; Translations: [PENICILLINS] Drug Allergy 02-22-20 04 Rash [facility] (10 sources) Sulfonamides (Antibiotic); Translations: [SULFA (SULFONAMIDE ANTIBIOTICS)] Drug Intolerance 02-22-20 04 Other: See Comments [facility] (11 sources) oxyCODONE Drug Allergy 07-21-20 Intolerance [facility] (11 sources) Penicillins Allergy to substance 07-21-20 Rash [facility] (11 sources) Sulfonamides (Antibiotic) Propensity to adverse reactions 07-21-20 thrush [facility] (11 sources) Qeihkvn-Zmi-Egc Reductase Inhibitor Allergy to substance 07-21-20 See Note [facility] Comment on above: Lethargy, muscle/afua nt pain (1 source) Clindamycin Drug Allergy 12-23-19 [facility] (1 source) Morphine Drug Allergy 12-23-19 25 [facility] (1 source) oxyCODONE Drug Allergy 12-23-19 25 [facility] (1 source) Penicillins Drug allergy (disorder) 12-23-19 25 [facility] (1 source) Sulfonamides (Antibiotic) Drug allergy (disorder) 12-23-19 25 [facility] (1 source) Ymrhqlm-Snc-Wrt Reductase Inhibitor Drug allergy (disorder) 12-23-19 [facility] Medications Current Medications Medication Drug Class(es) Dates Sig (Normalized) Sig (Original) acetaminophen 500 mg oral capsule (19 sources) Start: 07-15-2024 take 1 capsule by mouth three times daily Acetaminophen 500 mg capsule Active 500 mg PO THREE TIMES A DAY July 15, 2024 1:00am Start: 05-15-2021 take 2 tablets by mo uth every eight hours as needed acetaminophen (TYLENOL) 325 mg tablet Take 2 tablets by mouth every 8 hours as needed for pain. 30 tablet 05/15/2021 Active Comment on above: Take 2 tablets by mo uth every 8 hours as needed for pain. [...] 1:00am Start: 09-21-2016 take 1 capsule by [facility] once daily as needed Stool Softener 100 MG Oral Capsule TAKE 1 CAPSULE Daily prn Refills: 0 Start : 21-Sep-2016 Active Comment on above: Take 1 capsule by [facility] twice daily. docusate sodium 50 mg / sennosides, mcc 8.6 mg oral capsule (11 sources) Start: 07-15-2024 Sennosides-Docusate Sodium (Senna Plus) 8.6-50 mg capsule Active 1 NMA PO TWICE A DAY as needed July 15, 2024 1:00am fenofibrate 67 mg oral capsule (15 sources) Peroxisome Proliferator Receptor alpha Agonist Start: 07-15-2024 Fenofibrate Micronized 67 mg capsule Active 134 mg PO EVERY EVENING July 15, 2024 1:00am take 1 capsule by [facility] once daily at bedtime Fenofibrate 150 mg cap Take 150 mg by [facility] daily at bedtime. Active furosemide 40 mg oral tablet (20 sources) Loop Diuretic Start: 07-21-2024 take 1 tablet by mouth once daily Furosemide (Lasix) 40 mg tablet Active 40 mg PO daily July 21, 2024 1:00am Start: 07-15-2024 End: [...] 25 mg PO TWICE A DAY 180 3 July 21, 2024 1:00am Start: 01-27-2024 take [...] breakfast daily TAKE ONE TABLET BY M OUT ONCE A DAY phenylephrine hydrochloride 25 mg/ml [...] 04/24/2024 Discontinued take 2 tablets by mo [facility] once daily potassium chloride ER (KLOR-CON) 20 mEq tablet Take 40 mEq by mouth once daily. Active Comment on above: Take 1 tablet by [facility] twice daily. prednisoLONE acetate 10 mg/ml ophthalmic [...] Take 1 tablet by [facility] once daily. triamcinolone acetonide 1 mg/ml topical [...] Active Start: 11-26-2022 take 1 tablet by [facility] once daily vibegron (GEMTESA) 75 mg tablet Take 1 tablet by mouth once daily. 0 11/26/2022 Active Comment on above: Take 1 tablet by [facility] once daily. Vit A,C And R-Thnyxa-Uhmbgifg (I-Lary) 300 mcg-200 mg-27 mg-2 mg tablet (11 sources) Start: 07-15-2024 Vit A,C And R-Xjvcut-Pbzhnsbs (I-Lary) 300 mcg-200 mg-27 mg-2 mg tablet Active 1 {tbl} PO daily July 15, 2024 1:00am administer after a meal vit C,S-Ko-nqvht-lutein-ze axan (PRESERVISION AREDS-2) 250-90-40-1 mg (7 sources) vit C,O-Kv-koxwb-lutein-zeaxa n (PRESERVISION AREDS-2) 250-90-40-1 mg Take by [...] Comment on above: Take 1 tablet by [facility] once daily. Fish Oil 1200 MG Oral [...] on above: Take 1 capsule by mo [facility] at bedtime as needed for [...] Take 1 tablet by [facility] once daily. hydrOXYzine hydrochloride 10 mg oral [...] 1 application to affected area twice daily. [place]-3 Fatty Acids-Vitamin E (FISH OIL) 1,000 mg cap (8 sources) End: 4 take 1 capsule by mouth once daily [place]-3 Fatty Acids-Vitamin E (FISH OIL) 1,000 mg cap Take 1 capsule by mouth once daily. 0 04/24/2024 Discontinued (Discontinued by Patient) take 1 capsule by mouth once sylvain ly [place]-3 Fatty Acids-Vitamin E (FISH OIL) 1,000 mg cap Take 1 capsule by mouth once daily. 0 Active Comment on above: Take 1 capsule by mo [facility] once daily. PreserVision AREDS 2 [...] Comment on above: Take 1 tablet by [facility] twice daily. Problems Active Problems [...] Coronary arteriosclerosis; Translations: [Atherosclerotic heart disease of [place] coronary artery without angina pectoris] Onset: 2 [...] Auto (Unsp spec) [#/Vol] 1.66 10*3/uL 0.83-4.51 [facility] Absolute neutrophil countOrd ered By: Rodrigue Saldaña on 03-30-2025 Neutrophils (Bld) [#/Vol] 3.7 10*3/uL 2.0-7.7 [facility] Anion gap in Serum or Plasma Ordered By: Rodrigue Saldaña on 03-30-2025 Anion gap [Moles/Vol] 15 mmol/L 5-15 [facility] Automated lymphocyte count a s percentage of total leukocytesOrdered By: Rodrigue Saldaña on 03-30-2025 Lymphocytes/100 WBC Auto (Unsp spec) 25.1 % 19-41 [facility] BUN/creatinine ratioOrdered By: Rodrigue Saldaña on 03-30-2025 Urea nitrogen/Creatinine [Mass ratio] 26.5 mg/mg High 10-20 [facility] Basophil percentageOrdered B y: Teasalmaryann Saldaña on 03-30-2025 Basophils/100 WBC (Bld) 0.6 % 0-1 [facility] Carbon dioxide, total [Moles /volume] in Central venous bloodOrdered By: Teacentervillemaryann Saldaña on 03-30-2025 CO2 [Moles/Vol] 21.5 mmol/L 21.0-32.0 [facility] Chloride assayOrdered By: Dwayne jessicajarred Saldaña on 03-30-2025 Chloride [Moles/Vol] 103 mmol/L 98-108 [facility] Eosinophil percentageOrdered By: Rodrigue Saldaña on 03-30-2025 Eosinophils/100 WBC (Bld) 9.2 % High 0-5 [facility] Erythrocyte distribution wid th ratioOrdered By: Teacentervillemaryann Saldaña on 03-30-2025 Erythrocyte distribution width (RBC) [Ratio] 15.9 % High 11.6-14.6 [facility] Erythrocyte distribution wid th standard deviationOrdered By: jessicacentervillemaryann Saldaña on 03-30-2025 Erythrocyte distribution width (RBC) [Ratio] 52.4 fl High 35.1-43.9 [facility] Glomerular filtration rate ( GFR) estimation/1.73 sq m using serum, plasma, or whole bOrdered By: Rodrigue Saldaña on 03-30-2025 GFR/1.73 sq M.predicted among non-blacks MDRD (S/P/Bld) [Vol rate/Area] 32 mL/min/{1.73_m2} Low >60 [facility] Comment on above: mL/min/1.73m2 CKD-EP I Creatinine Equation (2020) Hematocrit Auto (Bld) [Volum e fraction]Ordered By: Rodrigue Saldaña on 03-30-2025 Hematocrit (Bld) [Volume fraction] 34.4 % Low 37-47 [facility] Hemoglobin measurementOrdere d By: Rodrigue Saldaña on 03-30-2025 Hemoglobin (Bld) [Mass/Vol] 11.4 g/dL Low 12.0-15.0 [facility] Immature granulocytes/100 WB C Auto (Bld)Ordered By: Rodrigue Saldaña on 03-30-2025 Immature granulocytes/100 WBC (Bld) 0.500 % 0.0-0.9 [facility] Comment on above: IG% - Immature Granu locytes (promyelocytes, myelocytes and metamyelocytes) > 1% indicates that a LEFT SHIFT is Present. MCV (mean corpuscular volume ) determinationOrdered By: Rodrigue Saldaña on 03-30-2025 MCV (RBC) [Entitic vol] 89.4 fL 81-99 [facility] Mean corpuscular hemoglobin (MCH) determinationOrdered By: Rodrigue Saldaña on 03-30-2025 MCH (RBC) [Entitic mass] 29.6 pg 27.0-32.0 [facility] Mean corpuscular hemoglobin concentration (MCHC) determinationOrdered By: Rodrigue Saldaña on 03-30-2025 MCHC (RBC) [Mass/Vol] 33.1 g/dL 32-36 [facility] Mean platelet volume determi nationOrdered By: Rodrigue Saldaña on 03-30-2025 Platelet mean volume (Bld) [Entitic vol] 10.1 fL 6.2-12.0 [facility] Monocyte percentageOrdered B y: Rodrigue Saldaña on 03-30-2025 Monocytes/100 WBC (Bld) 8.2 % 0-10 [facility] Neutrophil percentageOrdered By: Rodrigue Saldaña on 03-30-2025 Neutrophils/100 WBC (Bld) 56.4 % 47-70 [facility] Nucleated red blood cell per centageOrdered By: Rodrigue Saldaña on 03-30-2025 Nucleated RBC/100 WBC (Bld) [Ratio] 0 % 0-5 [facility] Platelet countOrdered By: Dwayne jessicajarred Saldaña on 03-30-2025 Platelets (Bld) [#/Vol] 162 10*3/uL 150-450 [facility] Potassium measurement (mass/ volume)Ordered By: Rodrigue Saldaña on 03-30-2025 Potassium (Unsp spec) [Mass/Vol] 4.0 mmol/L 3.3-5.1 [facility] RBC Auto (Bld) [#/Vol]Ordere d By: Rodrigue Saldaña on 03-30-2025 RBC (Bld) [#/Vol] 3.85 10*6/uL Low 4.2-5.4 [facility] Serum creatinine measurement (mass/volume)Ordered By: Rodrigue Saldaña on 03-30-2025 Creatinine [Mass/Vol] 1.59 mg/dL High 0.70-1.20 [facility] Serum glucose measurement (m ass/volume)Ordered By: Rodrigue Saldaña on 03-30-2025 Glucose [Mass/Vol] 96 mg/dL 70-[address] [facility] Serum or plasma calcium murali urement (mass/volume)Ordered By: Rodrigue Saldaña on 03-30-2025 Calcium [Mass/Vol] 8.3 mg/dL 7.6-11.[address] [facility] Serum or plasma urea nitroge n measurement (mass/volume)Ordered By: Rodrigue Saldaña on 03-30-2025 Urea nitrogen [Mass/Vol] 42 mg/dL High 4-19 [facility] Sodium levelOrdered By: Tea Saldaña on 03-30-2025 Sodium [Moles/Vol] 140 mmol/L 133-[address] [facility] White blood cell (WBC) count Ordered By: Rodrigue Saldaña on 03-30-2025 WBC (Bld) [#/Vol] 6.6 10*3/uL 4.4-11.[address] [facility] Bilirubin Test strip Ql (U)O rdered By: Rodrigue Saldaña on 03-09-2025 Bilirubin Ql (U) Negative Negative [facility] Ketones Test strip Ql (U)Ord ered By: Rodrigue Saldaña on 03-09-2025 Ketones Ql (U) Negative Negative [facility] Nitrite Test strip Ql (U)Ord ered By: Rodrigue Saldaña on 03-09-2025 Nitrite Ql (U) Positive High Negative [facility] Protein Test strip Ql (U)Ord ered By: Rodrigue Saldaña on 03-09-2025 Protein Ql (U) 15 mg/dl High Negative [facility] Urine clarityOrdered By: Mikel Saldaña on 03-09-2025 Clarity (U) Sl. Cloudy Clear [facility] Urine color determinationOrd ered By: Rodrigue Saldaña on 03-09-2025 Color (U) Yellow Yellow [facility] Urine cultureOrdered By: Mikel Saldaña on 03-09-2025 Bacteria identified Cx Nom (U) Proteus mirabilis Abnormal [facility] Urine glucose detectionOrder ed By: Rodrigue Saldaña on 03-09-2025 Glucose Ql (U) Normal mg/dl Normal [facility] Urine leukocyte esterase det ection by dipstickOrdered By: Rodrigue Saldaña on 03-09-2025 Leukocyte esterase Test strip Ql (U) 500 /ul High Negative [facility] Urine pHOrdered By: Juvenal Saldaña on 03-09-2025 pH (U) 7.0 [pH] 5.0 - 8.0 [facility] Urine specific gravity measu rementOrdered By: Rodrigue Saldaña on 03-09-2025 Specific gravity (U) [Rel density] 1.005 1.002-1.030 [facility] Urine urobilinogen measureme ntOrdered By: Rodrigue Saldaña on 03-09-2025 Urobilinogen Ql (U) Normal mg/dl Normal [facility] Absolute lymphocyte countOrd ered By: Rodrigue Saldaña on 03-02-2025 Lymphocytes Auto (Unsp spec) [#/Vol] 1.17 10*3/uL 0.83-4.51 [facility] Absolute neutrophil countOrd ered By: Rodrigue Yadavjaspreetlexie on 03-02-2025 Neutrophils (Bld) [#/Vol] 5.9 10*3/uL 2.0-7.7 [facility] Anion gap in Serum or Plasma Ordered By: Rodrigue Saldaña on 03-02-2025 Anion gap [Moles/Vol] 16 mmol/L High 5-15 [facility] Automated lymphocyte count a s percentage of total leukocytesOrdered By: Rodrigue Saldaña on 03-02-2025 Lymphocytes/100 WBC Auto (Unsp spec) 14.2 % Low 19-41 [facility] BUN/creatinine ratioOrdered By: Rodrigue Saldaña on 03-02-2025 Urea nitrogen/Creatinine [Mass ratio] 36.4 mg/mg High 10-20 [facility] Basophil percentageOrdered B y: Rodrigue Saldaña on 03-02-2025 Basophils/100 WBC (Bld) 0.6 % 0-1 [facility] Carbon dioxide, total [Moles /volume] in Central venous bloodOrdered By: Rodrigue Saldaña on 03-02-2025 CO2 [Moles/Vol] 20.3 mmol/L Low 21.0-32.0 [facility] Chloride assayOrdered By: Dwayne Saldaña on 03-02-2025 Chloride [Moles/Vol] 104 mmol/L 98-108 [facility] Eosinophil percentageOrdered By: Rodrigue Saldaña on 03-02-2025 Eosinophils/100 WBC (Bld) 4.0 % 0-5 [facility] Erythrocyte distribution wid th ratioOrdered By: Rodrigue Saldaña on 03-02-2025 Erythrocyte distribution width (RBC) [Ratio] 15.1 % High 11.6-14.6 [facility] Erythrocyte distribution wid th standard deviationOrdered By: naveed Saldaña on 03-02-2025 Erythrocyte distribution width (RBC) [Ratio] 49.1 fl High 35.1-43.9 [facility] Glomerular filtration rate ( GFR) estimation/1.73 sq m using serum, plasma, or whole bOrdered By: Rodrigue Saldaña on 03-02-2025 GFR/1.73 sq M.predicted among non-blacks MDRD (S/P/Bld) [Vol rate/Area] 33 mL/min/{1.73_m2} Low >60 [facility] Comment on above: mL/min/1.73m2 CKD-EP I Creatinine Equation (2020) Hematocrit Auto (Bld) [Volum e fraction]Ordered By: Rodrigue Saldaña on 03-02-2025 Hematocrit (Bld) [Volume fraction] 36.9 % Low 37-47 [facility] Hemoglobin measurementOrdere d By: Rodrigue Saldaña on 03-02-2025 Hemoglobin (Bld) [Mass/Vol] 12.3 g/dL 12.0-15.0 [facility] Immature granulocytes/100 WB C Auto (Bld)Ordered By: Rodrigue Saldaña on 03-02-2025 Immature granulocytes/100 WBC (Bld) 0.600 % 0.0-0.9 [facility] Comment on above: IG% - Immature Granu locytes (promyelocytes, myelocytes and metamyelocytes) > 1% indicates that a LEFT SHIFT is Present. MCV (mean corpuscular volume ) determinationOrdered By: Rodrigue Saldaña on 03-02-2025 MCV (RBC) [Entitic vol] 87.9 fL 81-99 [facility] Mean corpuscular hemoglobin (MCH) determinationOrdered By: Rodrigue Saldaña on 03-02-2025 MCH (RBC) [Entitic mass] 29.3 pg 27.0-32.0 [facility] Mean corpuscular hemoglobin concentration (MCHC) determinationOrdered By: Rodrigue Saldaña on 03-02-2025 MCHC (RBC) [Mass/Vol] 33.3 g/dL 32-36 [facility] Mean platelet volume determi nationOrdered By: Rodrigue Saldaña on 03-02-2025 Platelet mean volume (Bld) [Entitic vol] 10.4 fL 6.2-12.0 [facility] Monocyte percentageOrdered B y: Rodrigue Saldaña on 03-02-2025 Monocytes/100 WBC (Bld) 8.6 % 0-10 [facility] Neutrophil percentageOrdered By: Rodrigue Saldaña on 03-02-2025 Neutrophils/100 WBC (Bld) 72.0 % High 47-70 [facility] Nucleated red blood cell per centageOrdered By: Rodrigue Saldaña on 03-02-2025 Nucleated RBC/100 WBC (Bld) [Ratio] 0 % 0-5 [facility] Platelet countOrdered By: Dwayne jessicajarred Saldaña on 03-02-2025 Platelets (Bld) [#/Vol] 191 10*3/uL 150-450 [facility] Potassium measurement (mass/ volume)Ordered By: Rodrigue Saldaña on 03-02-2025 Potassium (Unsp spec) [Mass/Vol] 4.1 mmol/L 3.3-5.1 [facility] RBC Auto (Bld) [#/Vol]Ordere d By: Rodrigue Saldaña on 03-02-2025 RBC (Bld) [#/Vol] 4.20 10*6/uL 4.2-5.4 [facility] Serum creatinine measurement (mass/volume)Ordered By: Rodrigue Saldaña on 03-02-2025 Creatinine [Mass/Vol] 1.54 mg/dL High 0.70-1.20 [facility] Serum glucose measurement (m ass/volume)Ordered By: Rodrigue Saldaña on 03-02-2025 Glucose [Mass/Vol] 90 mg/dL 70-[address] [facility] Serum or plasma calcium murali urement (mass/volume)Ordered By: Rodrigue Saldaña on 03-02-2025 Calcium [Mass/Vol] 9.1 mg/dL 7.6-11.[address] [facility] Serum or plasma urea nitroge n measurement (mass/volume)Ordered By: Rodrigue Saldaña on 03-02-2025 Urea nitrogen [Mass/Vol] 56 mg/dL High 4-19 [facility] Sodium levelOrdered By: Tea skaggscristóballexie Saldaña on 03-02-2025 Sodium [Moles/Vol] 141 mmol/L 133-[address] [facility] White blood cell (WBC) count Ordered By: Rodrigue Saldaña on 03-02-2025 WBC (Bld) [#/Vol] 8.2 10*3/uL 4.4-11.[address] [facility] Anion gap in Serum or Plasma Ordered By: Regine Morales on 02-25-2025 Anion gap [Moles/Vol] 14 mmol/L 5-15 [facility] BUN/creatinine ratioOrdered By: Regine Morales on 02-25-2025 Urea nitrogen/Creatinine [Mass ratio] 25.9 mg/mg High 10-20 [facility] Carbon dioxide, total [Moles /volume] in Central venous bloodOrdered By: Regine Morales on 02-25-2025 CO2 [Moles/Vol] 24.7 mmol/L 21.0-32.0 [facility] Chloride assayOrdered By: Brian Morales on 02-25-2025 Chloride [Moles/Vol] 101 mmol/L 98-108 [facility] Glomerular filtration rate ( GFR) estimation/1.73 sq m using serum, plasma, or whole bOrdered By: Regine Morales on 02-25-2025 GFR/1.73 sq M.predicted among non-blacks MDRD (S/P/Bld) [Vol rate/Area] 36 mL/min/{1.73_m2} Low >60 [facility] Comment on above: mL/min/1.73m2 CKD-EP I Creatinine Equation (2020) Potassium measurement (mass/ volume)Ordered By: Regine Morales on 02-25-2025 Potassium (Unsp spec) [Mass/Vol] 3.9 mmol/L 3.3-5.1 [facility] Serum creatinine measurement (mass/volume)Ordered By: Regine Morales on 02-25-2025 Creatinine [Mass/Vol] 1.44 mg/dL High 0.70-1.20 [facility] Serum glucose measurement (m ass/volume)Ordered By: Regine Morales on 02-25-2025 Glucose [Mass/Vol] 105 mg/dL High 70-[address] [facility] Serum or plasma calcium murali urement (mass/volume)Ordered By: Regine Morales on 02-25-2025 Calcium [Mass/Vol] 8.7 mg/dL 7.6-11.[address] [facility] Serum or plasma urea nitroge n measurement (mass/volume)Ordered By: Regine Morales on 02-25-2025 Urea nitrogen [Mass/Vol] 37 mg/dL High 4-19 [facility] Sodium levelOrdered By: Noa Morales on 02-25-2025 Sodium [Moles/Vol] 139 mmol/L 133-[address] [facility] Anion gap in Serum or Plasma Ordered By: Rodrigue Saldaña on 02-11-2025 Anion gap [Moles/Vol] 13 mmol/L 5-15 [facility] BUN/creatinine ratioOrdered By: Rodrigue Saldaña on 02-11-2025 Urea nitrogen/Creatinine [Mass ratio] 33.5 mg/mg High 10-20 [facility] Carbon dioxide, total [Moles /volume] in Central venous bloodOrdered By: Rodrigue Saldaña on 02-11-2025 CO2 [Moles/Vol] 24.0 mmol/L 21.0-32.0 [facility] Chloride assayOrdered By: Dwayne Saldaña on 02-11-2025 Chloride [Moles/Vol] 103 mmol/L 98-108 [facility] Glomerular filtration rate ( GFR) estimation/1.73 sq m using serum, plasma, or whole bOrdered By: Rodrigue Saldaña on 02-11-2025 GFR/1.73 sq M.predicted among non-blacks MDRD (S/P/Bld) [Vol rate/Area] 32 mL/min/{1.73_m2} Low >60 [facility] Comment on above: mL/min/1.73m2 CKD-EP I Creatinine Equation (2020) Potassium measurement (mass/ volume)Ordered By: Rodrigue Saldaña on 02-11-2025 Potassium (Unsp spec) [Mass/Vol] 4.1 mmol/L 3.3-5.1 [facility] Serum creatinine measurement (mass/volume)Ordered By: Rodrigue Saldaña on 02-11-2025 Creatinine [Mass/Vol] 1.57 mg/dL High 0.70-1.20 [facility] Serum glucose measurement (m ass/volume)Ordered By: Rodrigue Saldaña on 02-11-2025 Glucose [Mass/Vol] 117 mg/dL High 70-[address] [facility] Serum or plasma calcium murali urement (mass/volume)Ordered By: Dwaynejessicasalmaryann Yadavjaspreetlexie on 02-11-2025 Calcium [Mass/Vol] 8.9 mg/dL 7.6-11.[address] [facility] Serum or plasma urea nitroge n measurement (mass/volume)Ordered By: Dwaynenaveed Yadavjaspreetlexie on 02-11-2025 Urea nitrogen [Mass/Vol] 53 mg/dL High 4-19 [facility] Sodium levelOrdered By: Tea stern Leifjaspreetlexie on 02-11-2025 Sodium [Moles/Vol] 140 mmol/L 133-[address] [facility] Absolute lymphocyte countOrd ered By: Dwaynejessicasalmaryann Yadavjaspreetlexie on 02-03-2025 Lymphocytes Auto (Unsp spec) [#/Vol] 1.61 10*3/uL 0.83-4.51 [facility] Absolute neutrophil countOrd ered By: Dwaynenaveed Yadavjaspreetlexie on 02-03-2025 Neutrophils (Bld) [#/Vol] 4.2 10*3/uL 2.0-7.7 [facility] Anion gap in Serum or Plasma Ordered By: Rodrigue Yadavjaspreetlexie on 02-03-2025 Anion gap [Moles/Vol] 14 mmol/L 5-15 [facility] Automated lymphocyte count a s percentage of total leukocytesOrdered By: Rodrigue Saldaña on 02-03-2025 Lymphocytes/100 WBC Auto (Unsp spec) 23.7 % 19-41 [facility] BUN/creatinine ratioOrdered By: Rodrigue Yadavjaspreetlexie on 02-03-2025 Urea nitrogen/Creatinine [Mass ratio] 30.6 mg/mg High 10-20 [facility] Basophil percentageOrdered B y: Arenmaryann Yadavjaspreetlexie on 02-03-2025 Basophils/100 WBC (Bld) 0.7 % 0-1 [facility] Carbon dioxide, total [Moles /volume] in Central venous bloodOrdered By: Rodrigue Saldaña on 02-03-2025 CO2 [Moles/Vol] 22.6 mmol/L 21.0-32.0 [facility] Chloride assayOrdered By: Dwayne Saldaña on 02-03-2025 Chloride [Moles/Vol] 105 mmol/L 98-108 [facility] Eosinophil percentageOrdered By: Rodrigue Saldaña on 02-03-2025 Eosinophils/100 WBC (Bld) 5.2 % High 0-5 [facility] Erythrocyte distribution wid th ratioOrdered By: Rodrigue Saldaña on 02-03-2025 Erythrocyte distribution width (RBC) [Ratio] 15.4 % High 11.6-14.6 [facility] Erythrocyte distribution wid th standard deviationOrdered By: Rodrigue Saldaña on 02-03-2025 Erythrocyte distribution width (RBC) [Ratio] 49.9 fl High 35.1-43.9 [facility] Glomerular filtration rate ( GFR) estimation/1.73 sq m using serum, plasma, or whole bOrdered By: Rodrigue Saldaña on 02-03-2025 GFR/1.73 sq M.predicted among non-blacks MDRD (S/P/Bld) [Vol rate/Area] 36 mL/min/{1.73_m2} Low >60 [facility] Comment on above: mL/min/1.73m2 CKD-EP I Creatinine Equation (2020) Hematocrit Auto (Bld) [Volum e fraction]Ordered By: Rodrigue Saldaña on 02-03-2025 Hematocrit (Bld) [Volume fraction] 39.1 % 37-47 [facility] Hemoglobin measurementOrdere d By: Rodrigue Saldaña on 02-03-2025 Hemoglobin (Bld) [Mass/Vol] 12.9 g/dL 12.0-15.0 [facility] Immature granulocytes/100 WB C Auto (Bld)Ordered By: Rodrigue Saldaña 02-03-2025 Immature granulocytes/100 WBC (Bld) 0.600 % 0.0-0.9 [facility] Comment on above: IG% - Immature Granu locytes (promyelocytes, myelocytes and metamyelocytes) > 1% indicates that a LEFT SHIFT is Present. MCV (mean corpuscular volume ) determinationOrdered By: Rodrigue Saldaña 02-03-2025 MCV (RBC) [Entitic vol] 89.3 fL 81-99 [facility] Mean corpuscular hemoglobin (MCH) determinationOrdered By: Rodrigue Saladña on 02-03-2025 MCH (RBC) [Entitic mass] 29.5 pg 27.0-32.0 [facility] Mean corpuscular hemoglobin concentration (MCHC) determinationOrdered By: Rodrigue Saldaña on 02-03-2025 MCHC (RBC) [Mass/Vol] 33.0 g/dL 32-36 [facility] Mean platelet volume determi nationOrdered By: Rodrigue Saldaña on 02-03-2025 Platelet mean volume (Bld) [Entitic vol] 9.7 fL 6.2-12.0 [facility] Monocyte percentageOrdered B y: Rodrigue Sladaña on 02-03-2025 Monocytes/100 WBC (Bld) 8.2 % 0-10 [facility] Neutrophil percentageOrdered By: Rodrigue Saldaña on 02-03-2025 Neutrophils/100 WBC (Bld) 61.6 % 47-70 [facility] Nucleated red blood cell per centageOrdered By: Rodrigue Yadavjaspreetlexie on 02-03-2025 Nucleated RBC/100 WBC (Bld) [Ratio] 0 % 0-5 [facility] Platelet countOrdered By: Dwayne nereydamaryann Saldaña on 02-03-2025 Platelets (Bld) [#/Vol] 180 10*3/uL 150-450 [facility] Potassium measurement (mass/ volume)Ordered By: Rodrigue Saldaña on 02-03-2025 Potassium (Unsp spec) [Mass/Vol] 4.5 mmol/L 3.3-5.1 [facility] RBC Auto (Bld) [#/Vol]Ordere d By: Rodrigue Saldaña on 02-03-2025 RBC (Bld) [#/Vol] 4.38 10*6/uL 4.2-5.4 [facility] Serum creatinine measurement (mass/volume)Ordered By: Rodrigue Saldaña on 02-03-2025 Creatinine [Mass/Vol] 1.42 mg/dL High 0.70-1.20 [facility] Serum glucose measurement (m ass/volume)Ordered By: Rodrigue Saldaña on 02-03-2025 Glucose [Mass/Vol] 104 mg/dL High 70-[address] [facility] Serum or plasma calcium murali urement (mass/volume)Ordered By: Rodrigue Saldaña on 02-03-2025 Calcium [Mass/Vol] 9.1 mg/dL 7.6-11.[address] [facility] Serum or plasma urea nitroge n measurement (mass/volume)Ordered By: Rodrigue Saldaña on 02-03-2025 Urea nitrogen [Mass/Vol] 44 mg/dL High 4-19 [facility] Sodium levelOrdered By: Tea Saldaña on 02-03-2025 Sodium [Moles/Vol] 142 mmol/L 133-[address] [facility] White blood cell (WBC) count Ordered By: Rodrigue Saldaña on 02-03-2025 WBC (Bld) [#/Vol] 6.8 10*3/uL 4.4-11.[address] [facility] Anion gap in Serum or Plasma Ordered By: Rodrigue Saldaña on 01-28-2025 Anion gap [Moles/Vol] 12 mmol/L 5-15 [facility] BUN/creatinine ratioOrdered By: Rodrigue Saldaña on 01-28-2025 Urea nitrogen/Creatinine [Mass ratio] 39.0 mg/mg High 10-20 [facility] Carbon dioxide, total [Moles /volume] in Central venous bloodOrdered By: Rodrigue Saldaña on 01-28-2025 CO2 [Moles/Vol] 24.8 mmol/L 21.0-32.0 [facility] Chloride assayOrdered By: Dwayne Saldaña on 01-28-2025 Chloride [Moles/Vol] 105 mmol/L 98-108 [facility] Glomerular filtration rate ( GFR) estimation/1.73 sq m using serum, plasma, or whole bOrdered By: Rodrigue Saldaña on 01-28-2025 GFR/1.73 sq M.predicted among non-blacks MDRD (S/P/Bld) [Vol rate/Area] 39 mL/min/{1.73_m2} Low >60 [facility] Comment on above: mL/min/1.73m2 CKD-EP I Creatinine Equation (2020) Potassium measurement (mass/ volume)Ordered By: Rodrigue Saldaña on 01-28-2025 Potassium (Unsp spec) [Mass/Vol] 3.9 mmol/L 3.3-5.1 [facility] Serum creatinine measurement (mass/volume)Ordered By: Rodrigue Saldaña on 01-28-2025 Creatinine [Mass/Vol] 1.34 mg/dL High 0.70-1.20 [facility] Serum glucose measurement (m ass/volume)Ordered By: Rodrigue Saldaña on 01-28-2025 Glucose [Mass/Vol] 99 mg/dL 70-[address] [facility] Serum or plasma calcium murali urement (mass/volume)Ordered By: Rodrigue Saldaña on 01-28-2025 Calcium [Mass/Vol] 8.7 mg/dL 7.6-11.[address] [facility] Serum or plasma urea nitroge n measurement (mass/volume)Ordered By: Rodrigue Saldaña on 01-28-2025 Urea nitrogen [Mass/Vol] 52 mg/dL High 4-19 [facility] Sodium levelOrdered By: Tea Saldaña on 01-28-2025 Sodium [Moles/Vol] 142 mmol/L 133-[address] [facility] Calculated very low density lipoprotein (VLDL) cholesterol measurementOrdered By: Regine Morales on 01-19-2025 Calculated very low density lipoprotein (VLDL) cholesterol measurement 18 mg/dL 5-40 [facility] LDL calc ser/plasOrdered By: Regine Morales on 01-19-2025 Cholesterol in LDL [Mass/Vol] 82 mg/dL [facility] Comment on above: Iugihtiywy=676-405 m g/dL & Higher Ykwb=974 mg/dL or greater Screening total cholesterol/ high density lipoprotein (HDL) cholesterol ratioOrdered By: Regine Morales on 01-19-2025 Cholesterol.total/Marixa sterol in HDL [Mass ratio] 3.00 {ratio} [facility] Serum or plasma cholesterol in HDL measurement (mass/volume)Ordered By: Regine Morales on 01-19-2025 Cholesterol in HDL [Mass/Vol] 50 mg/dL >40 [facility] Comment on above: National Cholesterol Education Program (NCEP) guidelines:<40 mg/dL: Low HDL-cholesterol (major risk factor for CHD)>= 60 mg/dL: High HDL-cholesterol (negative risk factor for CHD)HDL-cholesterol is affected by a number of factors, e.g. smoking, exercise, hormones, sex and age. Serum or plasma cholesterol measurement (mass/volume)Ordered By: Regine Morales on 01-19-2025 Cholesterol [Mass/Vol] 150 mg/dL <201 [facility] Comment on above: Cholesterol level, D esirable <200 mg/dLBorderline high cholesterol 200-239 mg/dLHigh cholesterol >=240 mg/dLRecommendations of the NCEP Adult Treatment Panel for the following risk-cutoff thresholds for the [place] population. Triglycerides measurementOrd ered By: Regine Morales on 01-19-2025 Triglyceride [Mass/Vol] 89 mg/dL <199 [facility] Comment on above: The drugs N-Acetylcy steine and Metamizole may falsely depress this assay. Normal range: <150 mg/dLBorderline High: 150-199 mg/dLHigh: 200-499 mg/dLVery High: >500 mg/dL Vitamin B12 ser/plasOrdered By: Regine Morales on 01-19-2025 Cobalamin (Vitamin B12) [Mass/Vol] 353 pg/mL 180-914 [facility] Anion gap in Serum or Plasma Ordered By: Rodrigue Saldaña on 01-14-2025 Anion gap [Moles/Vol] 12 mmol/L 5-15 [facility] BUN/creatinine ratioOrdered By: Rodrigue Saldaña on 01-14-2025 Urea nitrogen/Creatinine [Mass ratio] 38.2 mg/mg High 10- [facility] Carbon dioxide, total [Moles /volume] in Central venous bloodOrdered By: Rodrigue Saldaña on 01-14-2025 CO2 [Moles/Vol] 23.5 mmol/L 21.0-32.0 [facility] Chloride assayOrdered By: Dwayne Saldaña on 01-14-2025 Chloride [Moles/Vol] 104 mmol/L 98-108 [facility] Glomerular filtration rate ( GFR) estimation/1.73 sq m using serum, plasma, or whole bOrdered By: Rodrigue Saldaña on 01-14-2025 GFR/1.73 sq M.predicted among non-blacks MDRD (S/P/Bld) [Vol rate/Area] 30 mL/min/{1.73_m2} Low >60 [facility] Comment on above: mL/min/1.73m2 CKD-EP I Creatinine Equation (2020) Potassium measurement (mass/ volume)Ordered By: Rodrigue Saldaña on 01-14-2025 Potassium (Unsp spec) [Mass/Vol] 4.4 mmol/L 3.3-5.1 [facility] Serum creatinine measurement (mass/volume)Ordered By: Teacentervillemaryann Saldaña on 01-14-2025 Creatinine [Mass/Vol] 1.65 mg/dL High 0.70-1.20 [facility] Serum glucose measurement (m ass/volume)Ordered By: Rodrigue Saldaña on 01-14-2025 Glucose [Mass/Vol] 109 mg/dL High 70-[address] [facility] Serum or plasma calcium murali urement (mass/volume)Ordered By: Rodrigue Saldaña on 01-14-2025 Calcium [Mass/Vol] 8.9 mg/dL 7.6-11.[address] [facility] Serum or plasma urea nitroge n measurement (mass/volume)Ordered By: Rodrigue Saldaña on 01-14-2025 Urea nitrogen [Mass/Vol] 63 mg/dL High 4-19 [facility] Sodium levelOrdered By: Tea mezalexie Piper on 01-14-2025 Sodium [Moles/Vol] 139 mmol/L 133-[address] [facility] Gastroenterology Visit Repor ton 01-09-2025 Gastroenterology Visit Report [facility] [address] [place] [address] OFFICE VISIT Date of Service: 01/09/25 MR#: [id number] Acct: [id number] Name: YAA WARD Rep #: [id number] : 1940 Provider: WINNIE Chavis Age/Sex: 84/F [place] [facility] Status: Signed Intake Vital Signs 12/22/24 15:09 Height 5 ft 3 in Intake Visit Reasons: GERD, DYSPHAGIA Chief Complaint: Barretts esophagus Automation Operator Required: No Is patient in pain?: No Allergies clindamycin Allergy (Unknown, Unverified 12/22/24 15:12) Rash/Itching morphine Allergy (Unknown, Unverified 12/22/24 15:12) GI Upset, Vomiting Penicillins Allergy (Unknown, Unverified 12/22/24 15:12) Rash Auiigqp-JAV-KqM Reductase Inhibitor Allergy (Unknown, Unverified 12/22/24 15:12) [...] Denies abdominal pain, n/v/c, and bloody stools. [facility] Medical History (Updated 12/22/24 @ 15:40 by [...] Dry eye (more content not included)... Normal [facility] Absolute lymphocyte countOrd ered By: Rodrigue Saldaña on 01-05-2025 Lymphocytes Auto (Unsp spec) [#/Vol] 1.91 10*3/uL 0.83-4.51 [facility] Absolute neutrophil countOrd ered By: Rodrigue Saldaña on 01-05-2025 Neutrophils (Bld) [#/Vol] 5.7 10*3/uL 2.0-7.7 [facility] Anion gap in Serum or Plasma Ordered By: Rodrigue Saldaña on 01-05-2025 Anion gap [Moles/Vol] 15 mmol/L 5-15 [facility] Automated lymphocyte count a s percentage of total leukocytesOrdered By: Rodrigue Saldaña on 01-05-2025 Lymphocytes/100 WBC Auto (Unsp spec) 22.4 % 19-41 [facility] BUN/creatinine ratioOrdered By: Rodrigue Saldaña on 01-05-2025 Urea nitrogen/Creatinine [Mass ratio] 31.3 mg/mg High 10-20 [facility] Basophil percentageOrdered B y: Rodrigue Saldaña on 01-05-2025 Basophils/100 WBC (Bld) 0.5 % 0-1 [facility] Carbon dioxide, total [Moles /volume] in Central venous bloodOrdered By: Rodrigue Saldaña on 01-05-2025 CO2 [Moles/Vol] 21.6 mmol/L 21.0-32.0 [facility] Chloride assayOrdered By: Dwayne jessicajarred Saldaña on 01-05-2025 Chloride [Moles/Vol] 103 mmol/L 98-108 [facility] Eosinophil percentageOrdered By: jessicacentervillemaryann Yadavjaspreetlexie 01-05-2025 Eosinophils/100 WBC (Bld) 3.6 % 0-5 [facility] Erythrocyte distribution wid th ratioOrdered By: jessicasalmaryann Saldaña on 01-05-2025 Erythrocyte distribution width (RBC) [Ratio] 15.3 % High 11.6-14.6 [facility] Erythrocyte distribution wid th standard deviationOrdered By: jessicacentervillemaryann Saldaña on 01-05-2025 Erythrocyte distribution width (RBC) [Ratio] 49.3 fl High 35.1-43.9 [facility] Glomerular filtration rate ( GFR) estimation/1.73 sq m using serum, plasma, or whole bOrdered By: Rodrigue Saldaña on 01-05-2025 GFR/1.73 sq M.predicted among non-blacks MDRD (S/P/Bld) [Vol rate/Area] 30 mL/min/{1.73_m2} Low >60 [facility] Comment on above: mL/min/1.73m2 CKD-EP I Creatinine Equation (2020) Hematocrit Auto (Bld) [Volum e fraction]Ordered By: jessicacentervillemaryann Saldaña 01-05-2025 Hematocrit (Bld) [Volume fraction] 42.1 % 37-47 [facility] Hemoglobin measurementOrdere d By: Teasalmaryann Saldaña 01-05-2025 Hemoglobin (Bld) [Mass/Vol] 13.6 g/dL 12.0-15.0 [facility] Immature granulocytes/100 WB C Auto (Bld)Ordered By: Rodrigue Saldaña 01-05-2025 Immature granulocytes/100 WBC (Bld) 0.400 % 0.0-0.9 [facility] Comment on above: IG% - Immature Granu locytes (promyelocytes, myelocytes and metamyelocytes) > 1% indicates that a LEFT SHIFT is Present. MCV (mean corpuscular volume ) determinationOrdered By: Rodrigue Saldaña on 01-05-2025 MCV (RBC) [Entitic vol] 88.8 fL 81-99 [facility] Mean corpuscular hemoglobin (MCH) determinationOrdered By: Rodrigue Saldaña on 01-05-2025 MCH (RBC) [Entitic mass] 28.7 pg 27.0-32.0 [facility] Mean corpuscular hemoglobin concentration (MCHC) determinationOrdered By: Rodrigue Saldaña on 01-05-2025 MCHC (RBC) [Mass/Vol] 32.3 g/dL 32-36 [facility] Mean platelet volume determi nationOrdered By: Rodrigue Saldaña on 01-05-2025 Platelet mean volume (Bld) [Entitic vol] 10.0 fL 6.2-12.0 [facility] Monocyte percentageOrdered B y: Rodrigue Saldaña on 01-05-2025 Monocytes/100 WBC (Bld) 7.0 % 0-10 [facility] Neutrophil percentageOrdered By: naveed Saldaña on 01-05-2025 Neutrophils/100 WBC (Bld) 66.1 % 47-70 [facility] Nucleated red blood cell per centageOrdered By: Rodrigue Saldaña on 01-05-2025 Nucleated RBC/100 WBC (Bld) [Ratio] 0 % 0-5 [facility] Platelet countOrdered By: Dwayne Saldaña on 01-05-2025 Platelets (Bld) [#/Vol] 190 10*3/uL 150-450 [facility] Potassium measurement (mass/ volume)Ordered By: Rodrigue Saldaña on 01-05-2025 Potassium (Unsp spec) [Mass/Vol] 4.9 mmol/L 3.3-5.1 [facility] RBC Auto (Bld) [#/Vol]Ordere d By: Rodrigue Saldaña on 01-05-2025 RBC (Bld) [#/Vol] 4.74 10*6/uL 4.2-5.4 [facility] Serum creatinine measurement (mass/volume)Ordered By: Rodrigue Saldaña on 01-05-2025 Creatinine [Mass/Vol] 1.65 mg/dL High 0.70-1.20 [facility] Serum glucose measurement (m ass/volume)Ordered By: Rodrigue Saldaña on 01-05-2025 Glucose [Mass/Vol] 92 mg/dL 70-[address] [facility] Serum or plasma calcium murali urement (mass/volume)Ordered By: Rodrigue Saldaña on 01-05-2025 Calcium [Mass/Vol] 9.3 mg/dL 7.6-11.[address] [facility] Serum or plasma urea nitroge n measurement (mass/volume)Ordered By: Rodrigue Saldaña on 01-05-2025 Urea nitrogen [Mass/Vol] 52 mg/dL High 4-19 [facility] Sodium levelOrdered By: Tea Saldaña on 01-05-2025 Sodium [Moles/Vol] 139 mmol/L 133-[address] [facility] White blood cell (WBC) count Ordered By: Rodrigue Saldaña on 01-05-2025 WBC (Bld) [#/Vol] 8.5 10*3/uL 4.4-11.[address] [facility] Potassium measurement (mass/ volume)Ordered By: Rodrigue Saldaña on 01-02-2025 Potassium (Unsp spec) [Mass/Vol] 4.8 mmol/L 3.3-5.1 [facility] Anion gap in Serum or Plasma Ordered By: Rodrigue Saldaña on 12-31-2024 Anion gap [Moles/Vol] 11 mmol/L 5-15 [facility] BUN/creatinine ratioOrdered By: Rodrigue Saldaña on 12-31-2024 Urea nitrogen/Creatinine [Mass ratio] 36.3 mg/mg High 10-20 [facility] Carbon dioxide, total [Moles /volume] in Central venous bloodOrdered By: Rodrigue Saldaña on 12-31-2024 CO2 [Moles/Vol] 21.7 mmol/L 21.0-32.0 [facility] Chloride assayOrdered By: Dwayne Saldaña on 12-31-2024 Chloride [Moles/Vol] 107 mmol/L 98-108 [facility] Glomerular filtration rate ( GFR) estimation/1.73 sq m using serum, plasma, or whole bOrdered By: Rodrigue Saldaña on 12-31-2024 GFR/1.73 sq M.predicted among non-blacks MDRD (S/P/Bld) [Vol rate/Area] 32 mL/min/{1.73_m2} Low >60 [facility] Comment on above: mL/min/1.73m2 CKD-EP I Creatinine Equation (2020) Potassium measurement (mass/ volume)Ordered By: Rodrigue Saldaña on 12-31-2024 Potassium (Unsp spec) [Mass/Vol] 5.2 mmol/L High 3.3-5.1 [facility] Serum creatinine measurement (mass/volume)Ordered By: Rodrigue Saldaña on 12-31-2024 Creatinine [Mass/Vol] 1.58 mg/dL High 0.70-1.20 [facility] Serum glucose measurement (m ass/volume)Ordered By: Rodrigue Saldaña on 12-31-2024 Glucose [Mass/Vol] 112 mg/dL High 70-[address] [facility] Serum or plasma calcium murali urement (mass/volume)Ordered By: Rodrigue Saldaña on 12-31-2024 Calcium [Mass/Vol] 8.7 mg/dL 7.6-11.[address] [facility] Serum or plasma urea nitroge n measurement (mass/volume)Ordered By: Rodrigue Saldaña on 12-31-2024 Urea nitrogen [Mass/Vol] 57 mg/dL High 4-19 [facility] Sodium levelOrdered By: Tea Saldaña on 12-31-2024 Sodium [Moles/Vol] 140 mmol/L 133-[address] [facility] Orthopedic Visit Reporton Orthopedic Visit Report [facility] [address] [place] [id number] OFFICE VISIT Date of Service: 12/22/24 MR#: [id number] Acct: [id number] Name: YAA WARD Rep #: [id number] : 1940 Provider: Dr. Arjun skaggs MD Age/Sex: 84/F [place] [facility] Status: Signed with Addenda ADDENDUM by RORY [...] Performing Provider: Arjun Felton MD Performing Location: [facility] Administered by: Arjun Felton MD on 12/22/24 15:45 Dose Route Admin Location Dispensed Lot Number Expiration Date NDC Man ufacturer 40 mg intra-articular Left shoulder 1 mL [id number] 01/08/26 9718-7242-70 [facility] Date cc: * Signed Intake [...] Penicillins Allergy (Unknown, Unverified 12/22/24 15:12) Rash Njpyptr-GDK-AqU Reductase Inhibitor Allergy (Unknown, Unverified 12/22/24 15:12) [...] you fallen in the past year?: No [facility] Medical History (Updated 12/22/24 @ 15:40 by Arjun Felton MD) Primary osteoarthritis, left shoulder Left shoulder pain Colonoscopy planned UTI (urinary tract infection) Uterine fibroid Lumbar spinal stenosis Other lack of coordination Muscle weakness (generalized) Need for assistance with personal care Personal history of colonic polyps Family history of malignant neoplasm of digestive organs Depression, unspecified Irritable bowel (more content not included)... Normal [facility] Shoulder min 2 Viewson 12-22 Shoulder min 2 Views [facility] Imaging Services [address] [place] [address] Shoulder min 2 Views MR#: [id number] Acct: [id number] Name: YAA WARD Rep #: [id number] : 1940 F 84 From: Nadia garcia MD PCP: Dr. Rodrigue Saldaña MD Status: DEP AMB Study: Shoulder min 2 Views Date of Exam: 12/22/24 Exam# [id number] Ordering Dr: Arjun Felton MD PROCEDURE: SHOULDER [...] of an acute bone abnormality. [facility]: Dr. Rodrigue Saldaña MD; Dr. Arjun Felton MD Strip Cleaner: Signed Normal [facility] Anion gap in Serum or Plasma Ordered By: Regine Morales on 12-17-2024 Anion gap [Moles/Vol] 17 mmol/L High 5-15 [facility] BUN/creatinine ratioOrdered By: Regine Morales on 12-17-2024 Urea nitrogen/Creatinine [Mass ratio] 30.2 mg/mg High 10-20 [facility] Carbon dioxide, total [Moles /volume] in Central venous bloodOrdered By: Regine Morales on 12-17-2024 CO2 [Moles/Vol] 17.9 mmol/L Low 21.0-32.0 [facility] Chloride assayOrdered By: Brian oMrales on 12-17-2024 Chloride [Moles/Vol] 101 mmol/L 98-108 [facility] GFR/1.73 sq M.predicted benita g non-blacks MDRD (S/P/Bld) [Vol rate/Area]Ordered By: Regine Morales on 12-17-2024 Estimated GFR (MDRD) Non-Af Amer 30 Low >60 [facility] Comment on above: mL/min/1.73m2 CKD-EP I Creatinine Equation (2020) Glomerular filtration rate ( GFR) estimation/1.73 sq m using serum, plasma, or whole bOrdered By: Regine Morales on 12-17-2024 GFR/1.73 sq M.predicted among non-blacks MDRD (S/P/Bld) [Vol rate/Area] 30 mL/min/{1.73_m2} Low >60 [facility] Comment on above: mL/min/1.73m2 CKD-EP I Creatinine Equation (2020) Potassium (Unsp spec) [Mass/ Vol]Ordered By: Regine Morales on 12-17-2024 Potassium [Moles/Vol] 4.8 mmol/L 3.3-5.1 [facility] Comment on above: Hemolysis present, R esults could be affected. Potassium measurement (mass/ volume)Ordered By: Regine Morales on 12-17-2024 Potassium (Unsp spec) [Mass/Vol] 4.8 mmol/L 3.3-5.1 [facility] Comment on above: Hemolysis present, R esults could be affected. Serum creatinine measurement (mass/volume)Ordered By: Regine Morales on 12-17-2024 Creatinine [Mass/Vol] 1.69 mg/dL High 0.70-1.20 [facility] Serum glucose measurement (m ass/volume)Ordered By: Regine Morales on 12-17-2024 Glucose [Mass/Vol] 89 mg/dL 70-[address] [facility] Serum or plasma calcium murali urement (mass/volume)Ordered By: Regine Morales on 12-17-2024 Calcium [Mass/Vol] 9.5 mg/dL 7.6-11.[address] [facility] Serum or plasma urea nitroge n measurement (mass/volume)Ordered By: Regine Morales on 12-17-2024 Urea nitrogen [Mass/Vol] 51 mg/dL High 4-19 [facility] Sodium levelOrdered By: Noa Morales on 12-17-2024 Sodium [Moles/Vol] 136 mmol/L 133-[address] [facility] Absolute lymphocyte countOrd ered By: Rodrigue Saldaña on 12-08-2024 Lymphocytes Auto (Unsp spec) [#/Vol] 2.02 10*3/uL 0.83-4.51 [facility] Absolute neutrophil countOrd ered By: Rodrigue Saldaña on 12-08-2024 Neutrophils (Bld) [#/Vol] 3.5 10*3/uL 2.0-7.7 [facility] Anion gap in Serum or Plasma Ordered By: Rodrigue Saldaña on 12-08-2024 Anion gap [Moles/Vol] 20 mmol/L High 5-15 [facility] Automated lymphocyte count a s percentage of total leukocytesOrdered By: Rodrigue Saldaña on 12-08-2024 Lymphocytes/100 WBC Auto (Unsp spec) 30.4 % 19-41 [facility] BUN/creatinine ratioOrdered By: Teasalmaryann Yadavjaspreetlexie on 12-08-2024 Urea nitrogen/Creatinine [Mass ratio] 34.5 mg/mg High 10-20 [facility] Basophil percentageOrdered B y: Rodrigue Saldaña on 12-08-2024 Basophils/100 WBC (Bld) 0.9 % 0-1 [facility] Carbon dioxide, total [Moles /volume] in Central venous bloodOrdered By: Dwyanejessicasalmaryann Yadavjaspreetlexie on 12-08-2024 CO2 [Moles/Vol] 14.3 mmol/L Low 21.0-32.0 [facility] Chloride assayOrdered By: Dwayne nereydamaryann Yadavjaspreetlexie on 12-08-2024 Chloride [Moles/Vol] 105 mmol/L 98-108 [facility] Eosinophil percentageOrdered By: Rodrigue Leifjaspreetlexie on 12-08-2024 Eosinophils/100 WBC (Bld) 6.3 % High 0-5 [facility] Erythrocyte distribution wid th (RBC) [Ratio]Ordered By: Rodrigue Saldaña on 12-08-2024 Erythrocyte distribution width (RBC) [Entitic vol] 48.8 fL High 35.1-43.9 [facility] Erythrocyte distribution wid th ratioOrdered By: Rodrigue Yadavjaspreetlexie on 12-08-2024 Erythrocyte distribution width (RBC) [Ratio] 15.2 % High 11.6-14.6 [facility] Erythrocyte distribution wid th standard deviationOrdered By: Dwaynenaveed Yadavjaspreetlexie on 12-08-2024 Erythrocyte distribution width (RBC) [Ratio] 48.8 fl High 35.1-43.9 [facility] GFR/1.73 sq M.predicted benita g non-blacks MDRD (S/P/Bld) [Vol rate/Area]Ordered By: Rodrigue Saldaña on 12-08-2024 Estimated GFR (MDRD) Non-Af Amer 33 Low >60 [facility] Comment on above: mL/min/1.73m2 CKD-EP I Creatinine Equation (2020) Glomerular filtration rate ( GFR) estimation/1.73 sq m using serum, plasma, or whole bOrdered By: Rodrigue Saldaña on 12-08-2024 GFR/1.73 sq M.predicted among non-blacks MDRD (S/P/Bld) [Vol rate/Area] 33 mL/min/{1.73_m2} Low >60 [facility] Comment on above: mL/min/1.73m2 CKD-EP I Creatinine Equation (2020) Hematocrit Auto (Bld) [Volum e fraction]Ordered By: naveed Saldaña on 12-08-2024 Hematocrit (Bld) [Volume fraction] 39.0 % 37-47 [facility] Hemoglobin measurementOrdere d By: naveed Saldaña on 12-08-2024 Hemoglobin (Bld) [Mass/Vol] 12.8 g/dL 12.0-15.0 [facility] Immature granulocytes/100 WB C Auto (Bld)Ordered By: [facility]avlex[facility] on 12-08-2024 Immature granulocytes/100 WBC (Bld) 0.300 % 0.0-0.9 [facility] Comment on above: IG% - Immature Granu locytes (promyelocytes, myelocytes and metamyelocytes) > 1% indicates that a LEFT SHIFT is Present. Lymphocytes Auto (Unsp spec) [#/Vol]Ordered By: [facility] Leiflexie on 12-08-2024 Lymphocytes (Bld) [#/Vol] 2.02 10*3/uL 0.83-4.51 [facility] Lymphocytes/100 WBC Auto (Un sp spec)Ordered By: [facility] Yadavlexie on 12-08-2024 Lymphocytes/100 WBC (Bld) 30.4 % 19-41 [facility] MCV (mean corpuscular volume ) determinationOrdered By: Rodrigue Saldaña on 12-08-2024 MCV (RBC) [Entitic vol] 88.4 fL 81-99 [facility] Mean corpuscular hemoglobin (MCH) determinationOrdered By: jessicacentervillemaryann Saldaña on 12-08-2024 MCH (RBC) [Entitic mass] 29.0 pg 27.0-32.0 [facility] Mean corpuscular hemoglobin concentration (MCHC) determinationOrdered By: jessicacentervillemaryann Saldaña on 12-08-2024 MCHC (RBC) [Mass/Vol] 32.8 g/dL 32-36 [facility] Mean platelet volume determi nationOrdered By: Dwaynejessicasalmaryann Yadavjaspreetlexie on 12-08-2024 Platelet mean volume (Bld) [Entitic vol] 10.2 fL 6.2-12.0 [facility] Monocyte percentageOrdered B y: Dwaynenereydamaryann Yadavjaspreetlexie on 12-08-2024 Monocytes/100 WBC (Bld) 8.7 % 0-10 [facility] Neutrophil percentageOrdered By: Rodrigue Yadavjaspreetlexie on 12-08-2024 Neutrophils/100 WBC (Bld) 53.4 % 47-70 [facility] Nucleated red blood cell per centageOrdered By: Dwaynejessicasalmaryann Yadavjaspreetlexie on 12-08-2024 Nucleated RBC/100 WBC (Bld) [Ratio] 0 % 0-5 [facility] Platelet countOrdered By: Dwayne jessicajarred Saldaña on 12-08-2024 Platelets (Bld) [#/Vol] 186 10*3/uL 150-450 [facility] Potassium (Unsp spec) [Mass/ Vol]Ordered By: Rodrigue Saldaña on 12-08-2024 Potassium [Moles/Vol] 4.8 mmol/L 3.3-5.1 [facility] Potassium measurement (mass/ volume)Ordered By: Rodrigue Saldaña on 12-08-2024 Potassium (Unsp spec) [Mass/Vol] 4.8 mmol/L 3.3-5.1 [facility] RBC Auto (Bld) [#/Vol]Ordere d By: Teasalmaryann Yadavjaspreetlexie on 12-08-2024 RBC (Bld) [#/Vol] 4.41 10*6/uL 4.2-5.4 [facility] Serum creatinine measurement (mass/volume)Ordered By: Rodrigue Saldaña on 12-08-2024 Creatinine [Mass/Vol] 1.54 mg/dL High 0.70-1.20 [facility] Serum glucose measurement (m ass/volume)Ordered By: Rodrigue Saldaña on 12-08-2024 Glucose [Mass/Vol] 79 mg/dL 70-[address] [facility] Serum or plasma calcium murali urement (mass/volume)Ordered By: Rodrigue Saldaña on 12-08-2024 Calcium [Mass/Vol] 9.2 mg/dL 7.6-11.[address] [facility] Serum or plasma urea nitroge n measurement (mass/volume)Ordered By: Rodrigue Saldaña on 12-08-2024 Urea nitrogen [Mass/Vol] 53 mg/dL High 4-19 [facility] Sodium levelOrdered By: Tea jarred Piper on 12-08-2024 Sodium [Moles/Vol] 139 mmol/L 133-[address] [facility] White blood cell (WBC) count Ordered By: Rodrigue Saldaña on 12-08-2024 WBC (Bld) [#/Vol] 6.6 10*3/uL 4.4-11.[address] [facility] Anion gap in Serum or Plasma Ordered By: Regine Morales on 12-03-2024 Anion gap [Moles/Vol] 15 mmol/L 5-15 [facility] BUN/creatinine ratioOrdered By: Regine Morales on 12-03-2024 Urea nitrogen/Creatinine [Mass ratio] 30.2 mg/mg High 10-20 [facility] Carbon dioxide, total [Moles /volume] in Central venous bloodOrdered By: Regine Morales on 12-03-2024 CO2 [Moles/Vol] 20.8 mmol/L Low 21.0-32.0 [facility] Chloride assayOrdered By: Brian Morales on 12-03-2024 Chloride [Moles/Vol] 104 mmol/L 98-108 [facility] GFR/1.73 sq M.predicted benita g non-blacks MDRD (S/P/Bld) [Vol rate/Area]Ordered By: Regine Morales on 12-03-2024 Estimated GFR (MDRD) Non-Af Amer 29 Low >60 [facility] Comment on above: mL/min/1.73m2 CKD-EP I Creatinine Equation (2020) Glomerular filtration rate ( GFR) estimation/1.73 sq m using serum, plasma, or whole bOrdered By: Regine Morales on 12-03-2024 GFR/1.73 sq M.predicted among non-blacks MDRD (S/P/Bld) [Vol rate/Area] 29 mL/min/{1.73_m2} Low >60 [facility] Comment on above: mL/min/1.73m2 CKD-EP I Creatinine Equation (2020) Potassium (Unsp spec) [Mass/ Vol]Ordered By: Regine Morales on 12-03-2024 Potassium [Moles/Vol] 5.0 mmol/L 3.3-5.1 [facility] Potassium measurement (mass/ volume)Ordered By: Regine Morales on 12-03-2024 Potassium (Unsp spec) [Mass/Vol] 5.0 mmol/L 3.3-5.1 [facility] Serum creatinine measurement (mass/volume)Ordered By: Regine Morales on 12-03-2024 Creatinine [Mass/Vol] 1.70 mg/dL High 0.70-1.20 [facility] Serum glucose measurement (m ass/volume)Ordered By: Regine Morales on 12-03-2024 Glucose [Mass/Vol] 89 mg/dL 70-[address] [facility] Serum or plasma calcium murali urement (mass/volume)Ordered By: Regine Morales on 12-03-2024 Calcium [Mass/Vol] 8.1 mg/dL 7.6-11.[address] [facility] Serum or plasma urea nitroge n measurement (mass/volume)Ordered By: Regine Morales on 12-03-2024 Urea nitrogen [Mass/Vol] 51 mg/dL High 4-19 [facility] Sodium levelOrdered By: Noa Morales on 12-03-2024 Sodium [Moles/Vol] 141 mmol/L 133-[address] [facility] Anion gap in Serum or Plasma Ordered By: Regine Morales on 11-19-2024 Anion gap [Moles/Vol] 15 mmol/L 5-15 [facility] BUN/creatinine ratioOrdered By: Regine Morales on 11-19-2024 Urea nitrogen/Creatinine [Mass ratio] 32.7 mg/mg High 10-20 [facility] Carbon dioxide, total [Moles /volume] in Central venous bloodOrdered By: Regine Morales on 11-19-2024 CO2 [Moles/Vol] 20.2 mmol/L Low 21.0-32.0 [facility] Chloride assayOrdered By: Brian Morales on 11-19-2024 Chloride [Moles/Vol] 106 mmol/L 98-108 [facility] GFR/1.73 sq M.predicted benita g non-blacks MDRD (S/P/Bld) [Vol rate/Area]Ordered By: Regine Morales on 11-19-2024 Estimated GFR (MDRD) Non-Af Amer 29 Low >60 [facility] Comment on above: mL/min/1.73m2 CKD-EP I Creatinine Equation (2020) Glomerular filtration rate ( GFR) estimation/1.73 sq m using serum, plasma, or whole bOrdered By: Regine Morales on 11-19-2024 GFR/1.73 sq M.predicted among non-blacks MDRD (S/P/Bld) [Vol rate/Area] 29 mL/min/{1.73_m2} Low >60 [facility] Comment on above: mL/min/1.73m2 CKD-EP I Creatinine Equation (2020) Potassium (Unsp spec) [Mass/ Vol]Ordered By: Regine Morales on 11-19-2024 Potassium [Moles/Vol] 4.4 mmol/L 3.3-5.1 [facility] Potassium measurement (mass/ volume)Ordered By: Regine Morales on 11-19-2024 Potassium (Unsp spec) [Mass/Vol] 4.4 mmol/L 3.3-5.1 [facility] Serum creatinine measurement (mass/volume)Ordered By: Regine Morales on 11-19-2024 Creatinine [Mass/Vol] 1.70 mg/dL High 0.70-1.20 [facility] Serum glucose measurement (m ass/volume)Ordered By: Regine Morales on 11-19-2024 Glucose [Mass/Vol] 118 mg/dL High 70-[address] [facility] Serum or plasma calcium murali urement (mass/volume)Ordered By: Regine Morales on 11-19-2024 Calcium [Mass/Vol] 9.3 mg/dL 7.6-11.[address] [facility] Serum or plasma urea nitroge n measurement (mass/volume)Ordered By: Regine Morales on 11-19-2024 Urea nitrogen [Mass/Vol] 56 mg/dL High 4-19 [facility] Sodium levelOrdered By: Noa morgan Andrew on 11-19-2024 Sodium [Moles/Vol] 142 mmol/L 133-[address] [facility] Absolute lymphocyte countOrd ered By: Rodrigue Saldaña on 11-10-2024 Lymphocytes Auto (Unsp spec) [#/Vol] 1.74 10*3/uL 0.83-4.51 [facility] Absolute neutrophil countOrd ered By: Rodrigue Saldaña on 11-10-2024 Neutrophils (Bld) [#/Vol] 3.5 10*3/uL 2.0-7.7 [facility] Automated lymphocyte count a s percentage of total leukocytesOrdered By: Rodrigue Saldaña on 11-10-2024 Lymphocytes/100 WBC Auto (Unsp spec) 26.8 % 19-41 [facility] BUN/creatinine ratioOrdered By: Rodrigue Saldaña on 11-10-2024 Urea nitrogen/Creatinine [Mass ratio] 32.8 mg/mg High 10-20 [facility] Basophil percentageOrdered B y: Rodrigue Saldaña on 11-10-2024 Basophils/100 WBC (Bld) 0.6 % 0-1 [facility] Carbon dioxide measurementOr dered By: Rodrigue Saldaña on 11-10-2024 CO2 [Moles/Vol] 21.7 mmol/L Low 22.0-29.0 [facility] Chloride measurementOrdered By: Rodrigue Saldaña on 11-10-2024 Chloride [Moles/Vol] 106 mmol/L 96-108 [facility] Eosinophil percentageOrdered By: Rodrigue Saldaña on 11-10-2024 Eosinophils/100 WBC (Bld) 8.6 % High 0-5 [facility] Erythrocyte distribution wid th (RBC) [Ratio]Ordered By: Rodrigue Saldaña on 11-10-2024 Erythrocyte distribution width (RBC) [Entitic vol] 52.1 fL High 35.1-43.9 [facility] Erythrocyte distribution wid th ratioOrdered By: Rodrigue Saldaña on 11-10-2024 Erythrocyte distribution width (RBC) [Ratio] 15.9 % High 11.6-14.6 [facility] Erythrocyte distribution wid th standard deviationOrdered By: Rodrigue Saldaña on 11-10-2024 Erythrocyte distribution width (RBC) [Ratio] 52.1 fl High 35.1-43.9 [facility] GFR/1.73 sq M.predicted benita g non-blacks MDRD (S/P/Bld) [Vol rate/Area]Ordered By: Rodrigue Saldaña on 11-10-2024 Estimated GFR (MDRD) Non-Af Amer 37 Low >60 [facility] Comment on above: mL/min/1.73m2 CKD-EP I Creatinine Equation (2020) Glomerular filtration rate ( GFR) estimation/1.73 sq m using serum, plasma, or whole bOrdered By: Rodrigue Saldaña on 11-10-2024 GFR/1.73 sq M.predicted among non-blacks MDRD (S/P/Bld) [Vol rate/Area] 37 mL/min/{1.73_m2} Low >60 [facility] Comment on above: mL/min/1.73m2 CKD-EP I Creatinine Equation (2020) Hematocrit Auto (Bld) [Volum e fraction]Ordered By: Rodrigue Saldaña on 11-10-2024 Hematocrit (Bld) [Volume fraction] 38.2 % 37-47 [facility] Hemoglobin measurementOrdere d By: Rodrigue Saldaña on 11-10-2024 Hemoglobin (Bld) [Mass/Vol] 12.3 g/dL 12.0-15.0 [facility] Immature granulocytes/100 WB C Auto (Bld)Ordered By: Rodrigue Saldaña on 11-10-2024 Immature granulocytes/100 WBC (Bld) 0.300 % 0.0-0.9 [facility] Comment on above: IG% - Immature Granu locytes (promyelocytes, myelocytes and metamyelocytes) > 1% indicates that a LEFT SHIFT is Present. Lymphocytes Auto (Unsp spec) [#/Vol]Ordered By: naveed Saldaña on 11-10-2024 Lymphocytes (Bld) [#/Vol] 1.74 10*3/uL 0.83-4.51 [facility] Lymphocytes/100 WBC Auto (Un sp spec)Ordered By: Rodrigue Saldaña on 11-10-2024 Lymphocytes/100 WBC (Bld) 26.8 % 19-41 [facility] MCV (mean corpuscular volume ) determinationOrdered By: Rodrigue Saldaña on 11-10-2024 MCV (RBC) [Entitic vol] 89.9 fL 81-99 [facility] Mean corpuscular hemoglobin (MCH) determinationOrdered By: Rodrigue Saldaña on 11-10-2024 MCH (RBC) [Entitic mass] 28.9 pg 27.0-32.0 [facility] Mean corpuscular hemoglobin concentration (MCHC) determinationOrdered By: Rodrigue Saldaña on 11-10-2024 MCHC (RBC) [Mass/Vol] 32.2 g/dL 32-36 [facility] Mean platelet volume determi nationOrdered By: Rodrigue Saldaña on 11-10-2024 Platelet mean volume (Bld) [Entitic vol] 9.7 fL 6.2-12.0 [facility] Monocyte percentageOrdered B y: Rodrigue Saldaña on 11-10-2024 Monocytes/100 WBC (Bld) 9.1 % 0-10 [facility] Neutrophil percentageOrdered By: Rodrigue Saldaña on 11-10-2024 Neutrophils/100 WBC (Bld) 54.6 % 47-70 [facility] Nucleated red blood cell per centageOrdered By: Rodrigue Saldaña on 11-10-2024 Nucleated RBC/100 WBC (Bld) [Ratio] 0 % 0-5 [facility] Platelet countOrdered By: Dwayne Saldaña on 11-10-2024 Platelets (Bld) [#/Vol] 171 10*3/uL 150-450 [facility] RBC Auto (Bld) [#/Vol]Ordere d By: Rodrigue Saldaña on 11-10-2024 RBC (Bld) [#/Vol] 4.25 10*6/uL 4.2-5.4 [facility] Serum creatinine measurement (mass/volume)Ordered By: Rodrigue Saldaña on 11-10-2024 Creatinine [Mass/Vol] 1.40 mg/dL High 0.70-1.20 [facility] Serum glucose measurement (m ass/volume)Ordered By: Rodrigue Saldaña on 11-10-2024 Glucose [Mass/Vol] 99 mg/dL 70-[address] [facility] Serum or plasma anion gap de termination (moles/volume)Ordered By: Rodrigue Saldaña on 11-10-2024 Anion gap [Moles/Vol] 14 mmol/L 5-15 [facility] Serum or plasma calcium murali urement (mass/volume)Ordered By: Rodrigue Saldaña on 11-10-2024 Calcium [Mass/Vol] 9.1 mg/dL 7.6-11.[address] [facility] Serum or plasma potassium me asurementOrdered By: Rodrigue Saldaña on 11-10-2024 Potassium [Moles/Vol] 4.5 mmol/L 3.3-5.1 [facility] Serum or plasma sodium measu rement (moles/volume)Ordered By: Rodrigue Saldaña on 11-10-2024 Sodium [Moles/Vol] 142 mmol/L 133-[address] [facility] Serum or plasma urea nitroge n measurement (mass/volume)Ordered By: Rodrigue Saldaña on 11-10-2024 Urea nitrogen [Mass/Vol] 46 mg/dL High 4-19 [facility] White blood cell (WBC) count Ordered By: Rodrigue Saldaña on 11-10-2024 WBC (Bld) [#/Vol] 6.5 10*3/uL 4.4-11.[address] [facility] BUN/creatinine ratioOrdered By: Regine Morales on 11-05-2024 Urea nitrogen/Creatinine [Mass ratio] 35.1 mg/mg High 10-20 [facility] Carbon dioxide measurementOr dered By: Regine Morales on 11-05-2024 CO2 [Moles/Vol] 20.5 mmol/L Low 22.0-29.0 [facility] Chloride measurementOrdered By: Regine Morales on 11-05-2024 Chloride [Moles/Vol] 103 mmol/L 96-108 [facility] Creatinine [Moles/Vol]Ordere d By: Regine Morales on 11-05-2024 Creatinine [Mass/Vol] 1.5 mg/dL High 0.6-1.0 [facility] GFR/1.73 sq M.predicted benita g non-blacks MDRD (S/P/Bld) [Vol rate/Area]Ordered By: Regine Morales on 11-05-2024 Estimated GFR (MDRD) Non-Af Amer 35 Low >60 [facility] Comment on above: mL/min/1.73m2 CKD-EP I Creatinine Equation (2020) Glomerular filtration rate ( GFR) estimation/1.73 sq m using serum, plasma, or whole bOrdered By: Regine Morales on 11-05-2024 GFR/1.73 sq M.predicted among non-blacks MDRD (S/P/Bld) [Vol rate/Area] 35 mL/min/{1.73_m2} Low >60 [facility] Comment on above: mL/min/1.73m2 CKD-EP I Creatinine Equation (2020) Serum glucose measurement (m ass/volume)Ordered By: Regine Morales on 11-05-2024 Glucose [Mass/Vol] 91 mg/dL 70-[address] [facility] Serum or plasma anion gap de termination (moles/volume)Ordered By: Regine Morales on 11-05-2024 Anion gap [Moles/Vol] 17 mmol/L High 5-15 [facility] Serum or plasma calcium murali urement (mass/volume)Ordered By: Regine Morales on 11-05-2024 Calcium [Mass/Vol] 9.3 mg/dL 7.6-11.[address] [facility] Serum or plasma creatinine m easurement (moles/volume)Ordered By: Regine Morales on 11-05-2024 Creatinine [Moles/Vol] 1.5 mg/dL High 0.6-1.0 [facility] Serum or plasma potassium me asurementOrdered By: Regine Morales on 11-05-2024 Potassium [Moles/Vol] 4.7 mmol/L 3.3-5.1 [facility] Serum or plasma sodium measu rement (moles/volume)Ordered By: Regine Morales on 11-05-2024 Sodium [Moles/Vol] 140 mmol/L 133-[address] [facility] Serum or plasma urea nitroge n measurement (mass/volume)Ordered By: Regine Morales on 11-05-2024 Urea nitrogen [Mass/Vol] 52 mg/dL High 4-19 [facility] Blood urea nitrogen (BUN)/cr eatinine ratioOrdered By: Rodrigue Saldaña on 10-22-2024 Urea nitrogen/Creatinine [Mass ratio] 39.8 mg/mg High 10-20 [facility] Carbon dioxide measurementOr dered By: Rodrigue Saldaña on 10-22-2024 CO2 [Moles/Vol] 21.0 mmol/L 21.0-32.0 [facility] Chloride measurementOrdered By: Rodrigue Saldaña on 10-22-2024 Chloride [Moles/Vol] 109 mmol/L High 98-107 [facility] Estimated glomerular filtrat ion rate (GFR) AmericanOrdered By: Rodrigue Saldaña on 10-22-2024 Estimated GFR (MDRD) Amer 39 mL/min Low >60 [facility] Comment on above: GFR Calc Glomerular filtration rate ( GFR) estimationOrdered By: Rodrigue Saldaña on 10-22-2024 Estimated GFR (MDRD) Non-Af Amer 32 mL/min Low >60 [facility] Comment on above: Non- GFR Calc GFR/1.73 sq M.predicted among non-blacks MDRD (S/P/Bld) [Vol rate/Area] 32 mL/min/{1.73_m2} Low >60 [facility] Comment on above: Non- GFR Calc Glucose measurementOrdered B y: Rodrigue Saldaña on 10-22-2024 Glucose [Mass/Vol] 100 mg/dL 74-[address] [facility] Comment on above: Fasting Glucose resu lt from 100 to 125 mg/dL suggests IMPAIRED HOMEOSTASIS per A.D.A. criteria. Potassium measurementOrdered By: Rodrigue Saldaña on 10-22-2024 Potassium [Moles/Vol] 4.4 mmol/L 3.5-5.1 [facility] Serum anion gap measurementO rdered By: Rodrigue Saldaña on 10-22-2024 Anion gap [Moles/Vol] 10 mmol/L 5-15 [facility] Serum or plasma calcium murali urement (mass/volume)Ordered By: Rodrigue Saldaña on 10-22-2024 Calcium [Mass/Vol] 9.2 mg/dL 8.5-10.[address] [facility] Serum or plasma creatinine m easurement (mass/volume)Ordered By: Rodrigue Saldaña on 10-22-2024 Creatinine [Mass/Vol] 1.61 mg/dL High 0.55-1.02 [facility] Comment on above: The validity of the calculated GFR & GFRAA in patients over 70 years has not been determined. Clinical correlation is essential. Serum or plasma urea nitroge n measurement (mass/volume)Ordered By: Rodrigue Saldaña on 10-22-2024 Urea nitrogen [Mass/Vol] 64 mg/dL High 7-18 [facility] Sodium levelOrdered By: Tea Saldaña on 10-22-2024 Sodium [Moles/Vol] 140 mmol/L 136-[address] [facility] High density lipoprotein (HD L) measurementOrdered By: Rodrigue Saldaña on 10-20-2024 Cholesterol in HDL [Mass/Vol] 49 mg/dL >40 [facility] Comment on above: The drugs N-Acetylcy steine and Metamizole may falsely depress this assay. Reference Range HDL <40 mg/dL Low HDL Cholesterol HDL >or= 60 mg/dL High HDL Cholesterol Low density lipoprotein (LDL ) cholesterol measurementOrdered By: Rodrigue Saldaña on 10-20-2024 Cholesterol in LDL [Mass/Vol] 84 mg/dL 0-130 [facility] Serum or plasma cholesterol measurement (mass/volume)Ordered By: Rodrigue Saldaña on 10-20-2024 Cholesterol [Mass/Vol] 162 mg/dL <200 [facility] Comment on above: <200 mg/dL Desirable 200-240 mg/dL Borderline >240 mg/dL High Risk Triglycerides measurementOrd ered By: Rodrigue Saldaña on 10-20-2024 Triglyceride [Mass/Vol] 147 mg/dL <199 [facility] Comment on above: The drugs N-Acetylcy steine and Metamizole may falsely depress this assay.Serum Triglycerides Reference Interval Normal <150 mg/dL Borderline high 150 - 199 mg/dL High 200 - 499 mg/dL Very High > or = 500 mg/dL Very low density lipoprotein (VLDL) cholesterol measurementOrdered By: Rodrigue Saldaña on 10-20-2024 Very low density lipoprotein (VLDL) cholesterol measurement 29 mg/dL 5-40 [facility] VLDL Cholesterol 29 mg/dL 5-40 [facility] Vitamin B12 measurementOrder ed By: Rodrigue Saldaña on 10-20-2024 Cobalamin (Vitamin B12) [Mass/Vol] 416 pg/mL 211-911 [facility] Absolute lymphocyte countOrd ered By: Rodrigue Saldaña on 10-13-2024 Lymphocytes Auto (Unsp spec) [#/Vol] 1.93 10*3/uL 0.83-4.51 [facility] Absolute neutrophil countOrd ered By: Rodrigue Saldaña on 10-13-2024 Neutrophils (Bld) [#/Vol] 2.8 10*3/uL 2.0-7.7 [facility] Automated lymphocyte count a s percentage of total leukocytesOrdered By: Rodrigue Saldaña on 10-13-2024 Lymphocytes/100 WBC Auto (Unsp spec) 31.3 % 19-41 [facility] Basophil percentageOrdered B y: Rodrigue Saldaña on 10-13-2024 Basophils/100 WBC (Bld) 0.8 % 0-1 [facility] Blood urea nitrogen (BUN)/cr eatinine ratioOrdered By: Rodrigue Saldaña on 10-13-2024 Urea nitrogen/Creatinine [Mass ratio] 32.4 mg/mg High 10-20 [facility] Carbon dioxide measurementOr dered By: Rodrigue Saldaña on 10-13-2024 CO2 [Moles/Vol] 22.0 mmol/L 21.0-32.0 [facility] Chloride measurementOrdered By: Rodrigue Saldaña on 10-13-2024 Chloride [Moles/Vol] 109 mmol/L High 98-107 [facility] Eosinophil percentageOrdered By: Rodrigue Saldaña on 10-13-2024 Eosinophils/100 WBC (Bld) 11.4 % High 0-5 [facility] Erythrocyte distribution wid th (RBC) [Ratio]Ordered By: Rodrigue Saldaña on 10-13-2024 Erythrocyte distribution width (RBC) [Entitic vol] 55.2 fL High 35.1-43.9 [facility] Erythrocyte distribution wid th ratioOrdered By: Rodrigue Saldaña on 10-13-2024 Erythrocyte distribution width (RBC) [Ratio] 16.3 % High 11.6-14.6 [facility] Erythrocyte distribution wid th standard deviationOrdered By: Rodrigue Saldaña on 10-13-2024 Erythrocyte distribution width (RBC) [Ratio] 55.2 fl High 35.1-43.9 [facility] Estimated glomerular filtrat ion rate (GFR) AmericanOrdered By: Rodrigue Saldaña on 10-13-2024 Estimated GFR (MDRD) Amer 43 mL/min Low >60 [facility] Comment on above: GFR Calc Glomerular filtration rate ( GFR) estimationOrdered By: Rodrigue Saldaña on 10-13-2024 Estimated GFR (MDRD) Non-Af Amer 36 mL/min Low >60 [facility] Comment on above: Non- GFR Calc GFR/1.73 sq M.predicted among non-blacks MDRD (S/P/Bld) [Vol rate/Area] 36 mL/min/{1.73_m2} Low >60 [facility] Comment on above: Non- GFR Calc Glucose measurementOrdered B y: Rodrigue Saldaña on 10-13-2024 Glucose [Mass/Vol] 89 mg/dL 74-[address] [facility] Hematocrit Auto (Bld) [Volum e fraction]Ordered By: Rodrigue Saldaña on 10-13-2024 Hematocrit (Bld) [Volume fraction] 37.4 % 37-47 [facility] Hemoglobin measurementOrdere d By: Rodrigue Saldaña on 10-13-2024 Hemoglobin (Bld) [Mass/Vol] 11.8 g/dL Low 12.0-15.0 [facility] Immature granulocytes/100 WB C Auto (Bld)Ordered By: Rodrigue Saldaña on 10-13-2024 Immature granulocytes/100 WBC (Bld) 0.200 % 0.0-0.9 [facility] Comment on above: IG% - Immature Granu locytes (promyelocytes, myelocytes and metamyelocytes) > 1% indicates that a LEFT SHIFT is Present. Lymphocytes Auto (Unsp spec) [#/Vol]Ordered By: Rodrigue Saldaña on 10-13-2024 Lymphocytes (Bld) [#/Vol] 1.93 10*3/uL 0.83-4.51 [facility] Lymphocytes/100 WBC Auto (Un sp spec)Ordered By: Rodrigue Saldaña on 10-13-2024 Lymphocytes/100 WBC (Bld) 31.3 % 19-41 [facility] MCV (mean corpuscular volume ) determinationOrdered By: Rodrigue Saldaña on 10-13-2024 MCV (RBC) [Entitic vol] 91.2 fL 81-99 [facility] Mean corpuscular hemoglobin (MCH) determinationOrdered By: naveed Saldaña on 10-13-2024 MCH (RBC) [Entitic mass] 28.8 pg 27.0-32.0 [facility] Mean corpuscular hemoglobin concentration (MCHC) determinationOrdered By: Rodrigue Saldaña on 10-13-2024 MCHC (RBC) [Mass/Vol] 31.6 g/dL Low 32-36 [facility] Mean platelet volume determi nationOrdered By: Rodrigue Saldaña on 10-13-2024 Platelet mean volume (Bld) [Entitic vol] 10.5 fL 6.2-12.0 [facility] Monocyte percentageOrdered B y: Rodrigue Saldaña on 10-13-2024 Monocytes/100 WBC (Bld) 10.2 % High 0-10 [facility] Neutrophil percentageOrdered By: Rodrigue Saldaña on 10-13-2024 Neutrophils/100 WBC (Bld) 46.1 % Low 47-70 [facility] Nucleated red blood cell per centageOrdered By: Rodrigue Saldaña on 10-13-2024 Nucleated RBC/100 WBC (Bld) [Ratio] 0 % 0-5 [facility] Platelet countOrdered By: Dwayne Saldaña on 10-13-2024 Platelets (Bld) [#/Vol] 169 10*3/uL 150-450 [facility] Potassium measurementOrdered By: Rodrigue Saldaña on 10-13-2024 Potassium [Moles/Vol] 4.6 mmol/L 3.5-5.1 [facility] RBC Auto (Bld) [#/Vol]Ordere d By: Rodrigue Saldaña on 10-13-2024 RBC (Bld) [#/Vol] 4.10 10*6/uL Low 4.2-5.4 [facility] Serum anion gap measurementO rdered By: Rodrigue Saldaña on 10-13-2024 Anion gap [Moles/Vol] 10 mmol/L 5-15 [facility] Serum or plasma calcium murali urement (mass/volume)Ordered By: Rodrigue Saldaña on 10-13-2024 Calcium [Mass/Vol] 8.9 mg/dL 8.5-10.[address] [facility] Serum or plasma creatinine m easurement (mass/volume)Ordered By: Rodrigue Saldaña on 10-13-2024 Creatinine [Mass/Vol] 1.48 mg/dL High 0.55-1.02 [facility] Comment on above: The validity of the calculated GFR & GFRAA in patients over 70 years has not been determined. Clinical correlation is essential. Serum or plasma urea nitroge n measurement (mass/volume)Ordered By: Rodrigue Saldaña on 10-13-2024 Urea nitrogen [Mass/Vol] 48 mg/dL High 7-18 [facility] Sodium levelOrdered By: Tea mezalexie Piper on 10-13-2024 Sodium [Moles/Vol] 141 mmol/L 136-[address] [facility] White blood cell (WBC) count Ordered By: Rodrigue Saldaña on 10-13-2024 WBC (Bld) [#/Vol] 6.2 10*3/uL 4.4-11.[address] [facility] Blood urea nitrogen (BUN)/cr eatinine ratioOrdered By: Rodrigue Saldaña on 10-08-2024 Urea nitrogen/Creatinine [Mass ratio] 30.3 mg/mg High 10-20 [facility] Carbon dioxide measurementOr dered By: Rodrigue Saldaña on 10-08-2024 CO2 [Moles/Vol] 24.0 mmol/L 21.0-32.0 [facility] Chloride measurementOrdered By: Rodrigue Saldaña on 10-08-2024 Chloride [Moles/Vol] 106 mmol/L 98-107 [facility] Estimated glomerular filtrat ion rate (GFR) AmericanOrdered By: Rodrigue Saldaña on 10-08-2024 Estimated GFR (MDRD) Amer 44 mL/min Low >60 [facility] Comment on above: GFR Calc Glomerular filtration rate ( GFR) estimationOrdered By: Rodrigue Saldaña on 10-08-2024 Estimated GFR (MDRD) Non-Af Amer 37 mL/min Low >60 [facility] Comment on above: Non- GFR Calc GFR/1.73 sq M.predicted among non-blacks MDRD (S/P/Bld) [Vol rate/Area] 37 mL/min/{1.73_m2} Low >60 [facility] Comment on above: Non- GFR Calc Glucose measurementOrdered B y: Rodrigue Saldaña on 10-08-2024 Glucose [Mass/Vol] 107 mg/dL High 74-[address] [facility] Comment on above: Fasting Glucose resu lt from 100 to 125 mg/dL suggests IMPAIRED HOMEOSTASIS per A.D.A. criteria. Potassium measurementOrdered By: Rodrigue Saldaña on 10-08-2024 Potassium [Moles/Vol] 4.0 mmol/L 3.5-5.1 [facility] Serum anion gap measurementO rdered By: Rodrigue Saldaña on 10-08-2024 Anion gap [Moles/Vol] 9 mmol/L 5-15 [facility] Serum or plasma calcium murali urement (mass/volume)Ordered By: Rodrigue Saldaña on 10-08-2024 Calcium [Mass/Vol] 9.1 mg/dL 8.5-10.[address] [facility] Serum or plasma creatinine m easurement (mass/volume)Ordered By: Rodrigue Saldaña on 10-08-2024 Creatinine [Mass/Vol] 1.45 mg/dL High 0.55-1.02 [facility] Comment on above: The validity of the calculated GFR & GFRAA in patients over 70 years has not been determined. Clinical correlation is essential. Serum or plasma urea nitroge n measurement (mass/volume)Ordered By: Rodrigue Saldaña on 10-08-2024 Urea nitrogen [Mass/Vol] 44 mg/dL High 7-18 [facility] Sodium levelOrdered By: Tea Saldaña on 10-08-2024 Sodium [Moles/Vol] 139 mmol/L 136-[address] [facility] Blood urea nitrogen (BUN)/cr eatinine ratioOrdered By: Rodrigue Saldaña on 09-24-2024 Urea nitrogen/Creatinine [Mass ratio] 26.7 mg/mg High 10-20 [facility] Carbon dioxide measurementOr dered By: Rodrigue Saldaña on 09-24-2024 CO2 [Moles/Vol] 25.0 mmol/L 21.0-32.0 [facility] Chloride measurementOrdered By: Rodrigue Saldaña on 09-24-2024 Chloride [Moles/Vol] 105 mmol/L 98-107 [facility] Estimated glomerular filtrat ion rate (GFR) AmericanOrdered By: Rodrigue Saldaña on 09-24-2024 Estimated GFR (MDRD) Amer 44 mL/min Low >60 [facility] Comment on above: GFR Calc Glomerular filtration rate ( GFR) estimationOrdered By: Rodrigue Saldaña on 09-24-2024 Estimated GFR (MDRD) Non-Af Amer 36 mL/min Low >60 [facility] Comment on above: Non- GFR Calc GFR/1.73 sq M.predicted among non-blacks MDRD (S/P/Bld) [Vol rate/Area] 36 mL/min/{1.73_m2} Low >60 [facility] Comment on above: Non- GFR Calc Glucose measurementOrdered B y: Rodrigue Saldaña on 09-24-2024 Glucose [Mass/Vol] 101 mg/dL 74-[address] [facility] Comment on above: Fasting Glucose resu lt from 100 to 125 mg/dL suggests IMPAIRED HOMEOSTASIS per A.D.A. criteria. Potassium measurementOrdered By: Rodrigue Saldaña on 09-24-2024 Potassium [Moles/Vol] 4.0 mmol/L 3.5-5.1 [facility] Serum anion gap measurementO rdered By: Rodrigue Saldaña on 09-24-2024 Anion gap [Moles/Vol] 8 mmol/L - [facility] Serum or plasma calcium murali urement (mass/volume)Ordered By: Rodrigue Saldaña on 09-24-2024 Calcium [Mass/Vol] 8.8 mg/dL 8.5-10.[address] [facility] Serum or plasma creatinine m easurement (mass/volume)Ordered By: Rodrigue Saldaña on 09-24-2024 Creatinine [Mass/Vol] 1.46 mg/dL High 0.55-1.02 [facility] Comment on above: The validity of the calculated GFR & GFRAA in patients over 70 years has not been determined. Clinical correlation is essential. Serum or plasma urea nitroge n measurement (mass/volume)Ordered By: Rodrigue Saldaña on 09-24-2024 Urea nitrogen [Mass/Vol] 39 mg/dL High 7-18 [facility] Sodium levelOrdered By: Tea Saldaña on 09-24-2024 Sodium [Moles/Vol] 138 mmol/L 136-[address] [facility] Absolute neutrophil countOrd ered By: Rodrigue Saldaña on 09-15-2024 Neutrophils (Bld) [#/Vol] 5.1 10*3/uL 2.0-7.7 [facility] Basophil percentageOrdered B y: Rodrigue Saldaña on 09-15-2024 Basophils/100 WBC (Bld) 0.8 % 0-1 [facility] Blood urea nitrogen (BUN)/cr eatinine ratioOrdered By: Rodrigue Saldaña on 09-15-2024 Urea nitrogen/Creatinine [Mass ratio] 30.7 mg/mg High 10-20 [facility] Carbon dioxide measurementOr dered By: Rodrigue Saldaña on 09-15-2024 CO2 [Moles/Vol] 21.0 mmol/L 21.0-32.0 [facility] Chloride measurementOrdered By: Rodrigue Saldaña on 09-15-2024 Chloride [Moles/Vol] 108 mmol/L High 98-107 [facility] Eosinophil percentageOrdered By: Rodrigue Saldaña on 09-15-2024 Eosinophils/100 WBC (Bld) 5.1 % High 0-5 [facility] Erythrocyte distribution wid th (RBC) [Ratio]Ordered By: Rodrigue Saldaña on 09-15-2024 Erythrocyte distribution width (RBC) [Entitic vol] 53.6 fL High 35.1-43.9 [facility] Erythrocyte distribution wid th ratioOrdered By: Rodrigue Saldaña on 09-15-2024 Erythrocyte distribution width (RBC) [Ratio] 16.4 % High 11.6-14.6 [facility] Estimated glomerular filtrat ion rate (GFR) AmericanOrdered By: Rodrigue Saldaña on 09-15-2024 Estimated GFR (MDRD) Amer 42 mL/min Low >60 [facility] Comment on above: GFR Calc Glomerular filtration rate ( GFR) estimationOrdered By: Rodrigue Saldaña on 09-15-2024 Estimated GFR (MDRD) Non-Af Amer 34 mL/min Low >60 [facility] Comment on above: Non- GFR Calc Glucose measurementOrdered B y: Rodrigue Saldaña on 09-15-2024 Glucose [Mass/Vol] 84 mg/dL 74-[address] [facility] Hematocrit Auto (Bld) [Volum e fraction]Ordered By: Rodrigue Saldaña on 09-15-2024 Hematocrit (Bld) [Volume fraction] 37.5 % 37-47 [facility] Hemoglobin measurementOrdere d By: Rodrigue Saldaña on 09-15-2024 Hemoglobin (Bld) [Mass/Vol] 11.7 g/dL Low 12.0-15.0 [facility] Immature granulocytes/100 WB C Auto (Bld)Ordered By: Rodrigue Saldaña on 09-15-2024 Immature granulocytes/100 WBC (Bld) 0.500 % 0.0-0.9 [facility] Comment on above: IG% - Immature Granu locytes (promyelocytes, myelocytes and metamyelocytes) > 1% indicates that a LEFT SHIFT is Present. Lymphocytes Auto (Unsp spec) [#/Vol]Ordered By: Rodrigue Saldaña on 09-15-2024 Lymphocytes (Bld) [#/Vol] 1.95 10*3/uL 0.83-4.51 [facility] Lymphocytes/100 WBC Auto (Un sp spec)Ordered By: Rodrigue Saldaña on 09-15-2024 Lymphocytes/100 WBC (Bld) 23.5 % 19-41 [facility] MCV (mean corpuscular volume ) determinationOrdered By: Rodrigue Saldaña on 09-15-2024 MCV (RBC) [Entitic vol] 90.1 fL 81-99 [facility] Mean corpuscular hemoglobin (MCH) determinationOrdered By: naveed Saldaña on 09-15-2024 MCH (RBC) [Entitic mass] 28.1 pg 27.0-32.0 [facility] Mean corpuscular hemoglobin concentration (MCHC) determinationOrdered By: naveed Saldaña on 09-15-2024 MCHC (RBC) [Mass/Vol] 31.2 g/dL Low 32-36 [facility] Mean platelet volume determi nationOrdered By: Rodrigue Saldaña on 09-15-2024 Platelet mean volume (Bld) [Entitic vol] 10.4 fL 6.2-12.0 [facility] Monocyte percentageOrdered B y: Rodrigue Saldaña on 09-15-2024 Monocytes/100 WBC (Bld) 8.7 % 0-10 [facility] Neutrophil percentageOrdered By: Rodrigue Saldaña on 09-15-2024 Neutrophils/100 WBC (Bld) 61.4 % 47-70 [facility] Nucleated red blood cell per centageOrdered By: naveed Saldaña on 09-15-2024 Nucleated RBC/100 WBC (Bld) [Ratio] 0 % 0-5 [facility] Platelet countOrdered By: Dwayne Saldaña on 09-15-2024 Platelets (Bld) [#/Vol] 225 10*3/uL 150-450 [facility] Potassium measurementOrdered By: Rodrigue Saldaña on 09-15-2024 Potassium [Moles/Vol] 4.8 mmol/L 3.5-5.1 [facility] RBC Auto (Bld) [#/Vol]Ordere d By: Rodrigue Saldaña on 09-15-2024 RBC (Bld) [#/Vol] 4.16 10*6/uL Low 4.2-5.4 [facility] Serum anion gap measurementO rdered By: Rodrigue Saldaña on 09-15-2024 Anion gap [Moles/Vol] 9 mmol/L 5-15 [facility] Serum or plasma calcium murali urement (mass/volume)Ordered By: Rodrigue Saldaña on 09-15-2024 Calcium [Mass/Vol] 8.9 mg/dL 8.5-10.[address] [facility] Serum or plasma creatinine m easurement (mass/volume)Ordered By: Rodrigue Saldaña on 09-15-2024 Creatinine [Mass/Vol] 1.53 mg/dL High 0.55-1.02 [facility] Comment on above: The validity of the calculated GFR & GFRAA in patients over 70 years has not been determined. Clinical correlation is essential. Serum or plasma urea nitroge n measurement (mass/volume)Ordered By: Rodrigue Saldaña on 09-15-2024 Urea nitrogen [Mass/Vol] 47 mg/dL High 7-18 [facility] Sodium levelOrdered By: Tea Saldaña on 09-15-2024 Sodium [Moles/Vol] 138 mmol/L 136-[address] [facility] White blood cell (WBC) count Ordered By: Rodrigue Saldaña on 09-15-2024 WBC (Bld) [#/Vol] 8.3 10*3/uL 4.4-11.[address] [facility] Blood urea nitrogen (BUN)/cr eatinine ratioOrdered By: Rodrigue Saldaña on 08-27-2024 Urea nitrogen/Creatinine [Mass ratio] 25.7 mg/mg High 10-20 [facility] Carbon dioxide measurementOr dered By: Rodrigue Saldaña on 08-27-2024 CO2 [Moles/Vol] 26.0 mmol/L 21.0-32.0 [facility] Chloride measurementOrdered By: Rodrigue Saldaña on 08-27-2024 Chloride [Moles/Vol] 106 mmol/L 98-107 [facility] Estimated glomerular filtrat ion rate (GFR) AmericanOrdered By: Rodrigue Saldaña on 08-27-2024 Estimated GFR (MDRD) Amer 45 mL/min Low >60 [facility] Comment on above: GFR Calc Glomerular filtration rate ( GFR) estimationOrdered By: Rodrigue Saldaña on 08-27-2024 Estimated GFR (MDRD) Non-Af Amer 37 mL/min Low >60 [facility] Comment on above: Non- GFR Calc Glucose measurementOrdered B y: Rodrigue Saldaña on 08-27-2024 Glucose [Mass/Vol] 99 mg/dL 74-[address] [facility] Potassium measurementOrdered By: Rodrigue Saldaña on 08-27-2024 Potassium [Moles/Vol] 4.1 mmol/L 3.5-5.1 [facility] Serum anion gap measurementO rdered By: Rodrigue Saldaña on 08-27-2024 Anion gap [Moles/Vol] 7 mmol/L 5-15 [facility] Serum or plasma calcium murali urement (mass/volume)Ordered By: Rodrigue Saldaña on 08-27-2024 Calcium [Mass/Vol] 8.8 mg/dL 8.5-10.[address] [facility] Serum or plasma creatinine m easurement (mass/volume)Ordered By: Rodrigue Saldaña on 08-27-2024 Creatinine [Mass/Vol] 1.44 mg/dL High 0.55-1.02 [facility] Comment on above: The validity of the calculated GFR & GFRAA in patients over 70 years has not been determined. Clinical correlation is essential. Serum or plasma urea nitroge n measurement (mass/volume)Ordered By: Dwaynenaveed Yadavjaspreetlexie on 08-27-2024 Urea nitrogen [Mass/Vol] 37 mg/dL High 7-18 [facility] Sodium levelOrdered By: Tea stern Leifjaspreetlexie on 08-27-2024 Sodium [Moles/Vol] 140 mmol/L 136-[address] [facility] Absolute neutrophil countOrd ered By: Dwaynejessicajarred Leifjaspreetlexie on 08-18-2024 Neutrophils (Bld) [#/Vol] 3.4 10*3/uL 2.0-7.7 [facility] Basophil percentageOrdered B y: Arenmaryann Yadavkalina on 08-18-2024 Basophils/100 WBC (Bld) 0.8 % 0-1 [facility] Blood urea nitrogen (BUN)/cr eatinine ratioOrdered By: Dwaynejessicasalmaryann Yadavjaspreetlexie on 08-18-2024 Urea nitrogen/Creatinine [Mass ratio] 29.6 mg/mg High 10-20 [facility] Carbon dioxide measurementOr dered By: Dwaynejessicajarred Leifjaspreetlexie on 08-18-2024 CO2 [Moles/Vol] 24.0 mmol/L 21.0-32.0 [facility] Chloride measurementOrdered By: Dwaynenaveed Yadavjaspreetlexie on 08-18-2024 Chloride [Moles/Vol] 110 mmol/L High 98-107 [facility] Eosinophil percentageOrdered By: Rodrigue Lefijaspreetlexie on 08-18-2024 Eosinophils/100 WBC (Bld) 6.2 % High 0-5 [facility] Erythrocyte distribution wid th (RBC) [Ratio]Ordered By: Dwaynejessicasalmaryann Yadavjaspreetlexie on 08-18-2024 Erythrocyte distribution width (RBC) [Entitic vol] 52.5 fL High 35.1-43.9 [facility] Erythrocyte distribution wid th ratioOrdered By: [facility] Yadavjaspreetlexie on 08-18-2024 Erythrocyte distribution width (RBC) [Ratio] 16.1 % High 11.6-14.6 [facility] Estimated glomerular filtrat ion rate (GFR) AmericanOrdered By: Dwaynenaveed Yadavjaspreetlexie on 08-18-2024 Estimated GFR (MDRD) Amer 53 mL/min Low >60 [facility] Comment on above: GFR Calc Glomerular filtration rate ( GFR) estimationOrdered By: Rodrigue Saldaña on 08-18-2024 Estimated GFR (MDRD) Non-Af Amer 43 mL/min Low >60 [facility] Comment on above: Non- GFR Calc Glucose measurementOrdered B y: Rodrigue Saldaña on 08-18-2024 Glucose [Mass/Vol] 86 mg/dL 74-[address] [facility] Hematocrit Auto (Bld) [Volum e fraction]Ordered By: Rodrigue Saldaña on 08-18-2024 Hematocrit (Bld) [Volume fraction] 40.1 % 37-47 [facility] Hemoglobin measurementOrdere d By: Rodrigue Saldaña on 08-18-2024 Hemoglobin (Bld) [Mass/Vol] 12.5 g/dL 12.0-15.0 [facility] Immature granulocytes/100 WB C Auto (Bld)Ordered By: Rodrigue Saldaña on 08-18-2024 Immature granulocytes/100 WBC (Bld) 0.300 % 0.0-0.9 [facility] Comment on above: IG% - Immature Granu locytes (promyelocytes, myelocytes and metamyelocytes) > 1% indicates that a LEFT SHIFT is Present. Lymphocytes Auto (Unsp spec) [#/Vol]Ordered By: Rodrigue Saldaña on 08-18-2024 Lymphocytes (Bld) [#/Vol] 1.70 10*3/uL 0.83-4.51 [facility] Lymphocytes/100 WBC Auto (Un sp spec)Ordered By: Rodrigue Saldaña on 08-18-2024 Lymphocytes/100 WBC (Bld) 27.7 % 19-41 [facility] MCV (mean corpuscular volume ) determinationOrdered By: Rodrigue Saldaña on 08-18-2024 MCV (RBC) [Entitic vol] 90.5 fL 81-99 [facility] Mean corpuscular hemoglobin (MCH) determinationOrdered By: Rodrigue Saldaña on 08-18-2024 MCH (RBC) [Entitic mass] 28.2 pg 27.0-32.0 [facility] Mean corpuscular hemoglobin concentration (MCHC) determinationOrdered By: Rodrigue Saldaña on 08-18-2024 MCHC (RBC) [Mass/Vol] 31.2 g/dL Low 32-36 [facility] Mean platelet volume determi nationOrdered By: Rodrigue Saldaña on 08-18-2024 Platelet mean volume (Bld) [Entitic vol] 10.4 fL 6.2-12.0 [facility] Monocyte percentageOrdered B y: Rodrigue Saldaña on 08-18-2024 Monocytes/100 WBC (Bld) 9.0 % 0-10 [facility] Neutrophil percentageOrdered By: Rodrigue Saldaña on 08-18-2024 Neutrophils/100 WBC (Bld) 56.0 % 47-70 [facility] Nucleated red blood cell per centageOrdered By: Rodrigue Saldaña on 08-18-2024 Nucleated RBC/100 WBC (Bld) [Ratio] 0 % 0-5 [facility] Platelet countOrdered By: Dwayne Saldaña on 08-18-2024 Platelets (Bld) [#/Vol] 153 10*3/uL 150-450 [facility] Potassium measurementOrdered By: Rodrigue Saldaña on 08-18-2024 Potassium [Moles/Vol] 3.9 mmol/L 3.5-5.1 [facility] RBC Auto (Bld) [#/Vol]Ordere d By: Rodrigue Saldaña on 08-18-2024 RBC (Bld) [#/Vol] 4.43 10*6/uL 4.2-5.4 [facility] Serum anion gap measurementO rdered By: Rodrigue Saldaña on 08-18-2024 Anion gap [Moles/Vol] 8 mmol/L 5-15 [facility] Serum or plasma calcium murali urement (mass/volume)Ordered By: Rodrigue Saldaña on 08-18-2024 Calcium [Mass/Vol] 9.1 mg/dL 8.5-10.[address] [facility] Serum or plasma creatinine m easurement (mass/volume)Ordered By: Rodrigue Saldaña on 08-18-2024 Creatinine [Mass/Vol] 1.25 mg/dL High 0.55-1.02 [facility] Comment on above: The validity of the calculated GFR & GFRAA in patients over 70 years has not been determined. Clinical correlation is essential. Serum or plasma urea nitroge n measurement (mass/volume)Ordered By: Rodrigue Leifkalina on 08-18-2024 Urea nitrogen [Mass/Vol] 37 mg/dL High 7-18 [facility] Sodium levelOrdered By: Tea Saldaña on 08-18-2024 Sodium [Moles/Vol] 142 mmol/L 136-[address] [facility] White blood cell (WBC) count Ordered By: Rodrigue Leifkalina on 08-18-2024 WBC (Bld) [#/Vol] 6.1 10*3/uL 4.4-11.[address] [facility] Stress Reporton 07-31-2024 Stress Report [facility] [address] [place] [address] MR#: [id number] Acct: [id number] Name: YAA WARD Rep #: [id number] : 1940 84 From: Osvaldo Kuhn MD Primary Care: Dr. Rodrigue Saldaña MD Status: [facility] Referring Dr: Osvaldo Kuhn MD Sex: [...] of 66%. This note was generated with [email or web address] software. It may contain incorrect words, spelling, and punctuation that were not noted in checking the note before signing. 07/31/24 1233 Date Osvaldo Kuhn MD CC: Dr. Osvaldo Kuhn MD; Dr. Rodrigue Saldaña MD Date Dictated: 07/31/24 1231 Date Transcribed: 07/31/24 1231 Strip Cleaner: SHAUNA Signed Normal [facility] 12 [place] [facility] 12 Lead EKG performed by [address] [id number] 12 Lead [place] [facility] 07/21/24 0758 MR#: [id number] Acct: [id number] Name: YAA WARD Rep #: [id number] : 1940 84 From: Osvaldo Kuhn MD Attending Dr: Dr. Osvaldo Kuhn MD Status: DEP AMB Ordering Dr: Osvaldo Kuhn MD Date: 07/21/24 [place] [facility] [place] F C [place] [facility] [facility] ECG Report Interpretation ---Sinus Rhythm - frequent PAC s # PACs = 2.Voltage criteria for LVH (R(I)+S(III) exceeds 2.50 mV) -Voltage criteria w/o ST/T abnormality may be normal. -consider old anterior infarct. ABNORMAL Electronically signed on 10/06/2024 at 11:[address] Osvaldo Kuhn [employer] Version 8610 10/06/24 1110 Date Osvaldo Kuhn MD CC: Dr. Rodrigue Saldaña MD Date Dictated: 07/21/24757 Date Transcribed: 07/21/24757 Strip Cleaner: SHAUNA Signed Normal [facility] Cardiology Visit Reporton Cardiology Visit Report [facility] [address] [address] [place] [address] OFFICE VISIT Date of Service: 07/21/24 MR#: [id number] Acct: [id number] Name: YAA WARD Rep #: [id number] : 1940 Provider: Dr. Osvaldo Kuhn MD Age/Sex: 84/F [place] [facility] Status: Signed HPI HPI History of Present [...] Source NIBP Intake Visit Reasons: CP (ALEXIS) Automation Operator Required: No Accompanied by: Caregiver Is patient in pain?: No Allergies clindamycin Allergy (Unknown, Unverified 07/21/24 11:41) Rash/Itching morphine Allergy (Unknown, Unverified 07/21/24 11:41) GI Upset, Vomiting Penicillins Allergy (Unknown, Unverified 07/21/24 11:41) Rash Ufaaduc-VKC-ClW Reductase Inhibitor Allergy (Unknown, Unverified 07/21/24 11:41) [...] you fallen in the past year?: No [facility] Medical History Age-related nuclear cataract, unspecified eye [...] elsewhere classif (more content not included)... Normal [facility] CNCOon 04-24-2024 CNCO Letter Text Normal [facility] CNOVon 04-24-2024 CNOV Office Visit (GSTNOR ) YAA WARD ([id number]) 1940 F NFR Date Time Provider Department 04/24/24 11:20 AM DUC PAYAN GSTNOR During your visit today, we recorded the following information about you: Pulse Blood pressure Weight Height 64/minute 148/92 115.7 kg 1.575 m Duc Payan, BLOOD DONOR UNIT ASSISTANT.EMISSIONS INSPECTOR 04/24/2024 12:25 PM Signed CHIEF COMPLAINT: Patient presents with: Garcia's Esophagus : Voice change Constipation: Bloating This consult was requested by No ref. provider found for an opinion regarding garcia's esophagus. My final recommendations will be communicated to the requesting health care provider by way of the shared medical record for internal providers or letter via the [employer] for external providers. HPI: Yaa [...] dysfunctional uterine bleeding Allergies: ALLERGIES Allergen Reactions Pbrsopf-Ixj-Hgq Red* Other: See Comments Lethargic, and muscle [...] 1 tablet by mouth once daily. vit C,L-Vk-bxuss-lutein-ayesha zack (PRESERVISION AREDS-2) 250-90-40-1 mg Take by [...] 12.5 m (more content not included)... Normal [facility] CNOVon 03-11-2024 CNOV Office Visit (FAMPTW ) YAA WARD ([id number]) 1940 F NFR Date Time Provider Department 03/11/24 10:20 AM DELISA ESTRELLA During your visit today, we recorded the following information about you: Pulse Blood pressure Weight Height 67/minute 117/64 115.7 kg 1.575 m Delisa Estrella DO 03/16/2024 9:28 PM Signed Yaa Sylvia is a 83 year old female presenting for evaluation Patient is wishing to reestablish care-she recently moved to [facility] Last office visit with me was on 03/01/2021 Pt currently lives at an assisted living facility " [facility]" in [place] where she follows with a EMISSIONS INSPECTOR and with PCP Dr Saldaña. I have [...] Dr Rojas. Previous PCP Dr Ragsdale (in [place]) retired 2 yrs ago New PCP Dr Saldaña at [facility]". States has only met the physician on time. Follows most of the time with NEERAJ Noa at [facility] Services: at her Assisted living facility [...] Protonix 40 mg daily dose Since in [place] she has not seen a GI as advised that there is no GI provider in [place]. After discussion I did place a call and found closest GI provider in [facility] in [place] Phone number: [phone] Rosario Pt aware and will try to schedule an appt. Pt is aware that I did speak with nursing supervisore Saba at [place]. DENIES: fever, chills, weight changes, night sweats, [...] Tobacco comments: (more content not included)... Normal [facility] Neda 03-11-2024 LIZ Telephone (FAMPTW) YAA WARD ([id number]) 1940 F NFR Date Time Provider Department 03/11/24 DELISA ESTRELLA During your visit today, we recorded the following information about you: Ariela Saenz 03/11/2024 10:12 AM Signed Saba with [facility] is calling Delisa Estrella DO today with concern regarding appointment today. Patient lives in a facility right now and the cost accounting manager of the facility is calling and [...] of symptoms: N/A Any questions, please call [phone] Closing statement: Results or non-symptom based questions: Thank you for calling [facility], your call will be returned within the [...] As of Date: 03/11/2024 Noted Allergy Reaction [id number]-HFL-HMX REDUCTASE INHIBIT*01/23/2012 14 - Other: See Comments [...] tablet by mouth once daily. - vit C,Y-Rt-ejjni-lutein-ayesha zack (PRESERVISION AREDS-2) 250-90-40-1 mg Take by [...] 2,000 Units by mouth once daily. - Slocomb-3 Fatty Acids-Vitamin E (FISH OIL) 1,000 mg [...] Cervical spondyl (more content not included)... [facility] (FAMPTW[facility] YAA WARD ([id number]) 1940 F NFR Date Time Provider Department 12/17/23 DELISA ESTRELLAW During your visit today, we recorded the [...] calling: self Call patient at: at home [phone] (home) [phone] (cell) Was an appointment scheduled: No Closing statement: Results or non-symptom based questions: Thank you for calling [facility], your call will be returned within the next business day. Reena Benitez [facility] Mary Lou Vidales MA 12/17/2023 3:46 PM Signed Please see message below and advise. Kay Cummins 12/19/2023 12:[address] Estrella advised she would accept patient back to re-establish care. Tried to reach patient at both numbers listed in [facility]. Was connected with [facility] and advised that we need to contact Ariadna at [phone], who handles all patient scheduling and transport. Called number above and was unable to leave message. Will follow up to offer patient appointment on 02/07/2024 at 12:[address] Estrella. Kay Cummins 12/20/2023 8:43 AM Signed Patient called back and is scheduled on 03/11/24. Allergies As of Date: 12/17/2023 Noted Allergy Reaction [id number]-AKC-MMP REDUCTASE INHIBIT*01/23/2012 14 - Other: See Comments [...] tablet by mouth once daily. - vit C,E-Zu-ctypl-lutein-ayesha zack (PRESERVISION AREDS-2) 250-90-40-1 mg Take by [...] 2,000 Units by mouth once daily. - Slocomb-3 Fatty Acids-Vitamin E (FISH OIL) 1,000 mg [...] 02/17/2021 Cervicalgia (more content not included)... Normal [facility] ANES POSTPROC EVALon 024 ANES POSTPROC EVAL HNO ID: [id number] Author: AMAN MCCALLUM MD Service: ? Author Type: Anesthesiologist Type: Anesthesia Postprocedure Evaluation Filed: 12/06/2023 11:16 Note Text: POST ANESTHESIA EVALUATION NOTE : 1940 Procedure Summary Date: 12/06/23 Room / Location: [address] Anesthesia Start: 821 Anesthesia Stop: 841 Procedures: [...] December 06, 2023 TIME: 11:16 AM CSN: [id number] Normal [facility] ANES PRE-OPon 12-06-2023 ANES PRE-OP HNO ID: [id number] Author: AMAN MCCALLUM MD Service: ? Author Type: Anesthesiologist Type: Anesthesia Preprocedure Evaluation Filed: 12/06/2023 08:12 Note Text: ANESTHESIOLOGY DAY OF SURGERY NOTE : 1940 Procedure Information Date/Time: 12/06/2345 Procedures: PHACOEMULSIFICATION CATARACT IMPLANT INTRAOCULAR LENS W/O ENDOSCOPIC CYCLOPHOTOCOAGULATION (Left: Eye) OPHTHALMIC BIOMETRY BY PARTIAL COHERENCE INTERFEROMETRY W/INTRAOCULAR LENS POWER CALCULATION (Left: Eye) Location: [place] [address] / [facility] Surgeons: Vinod Rojas MD Estimated [...] and consent discussed: yes. Patient / Responsible Green Party agrees to proceed: yes Patient / Surrogate [...] tablet by mouth once daily. - vit C,T-Wg-seoca-lutein-ayesha zack (PRESERVISION AREDS-2) 250-90-40-1 mg Take by [...] 2,000 Units by mouth once daily. - Slocomb-3 Fatty Acids-Vitamin E (FISH OIL) 1,000 mg [...] December 06, 2023 TIME: 8:11 AM CSN: [id number] Normal [facility] OPERATIVE NOon 12-06-2023 OPERATIVE NO HNO ID: [id number] Author: VINOD ROJAS MD Service: Ophthalmology Author Type: Physician Type: Operative Report Filed: 12/06/2023 08:45 Note Text: [facility] OPERATIVE REPORT Log ID: [id number] Surgery/Procedure Date: 12/06/2023 Name: Yaa Ward [facility] #: [id number] Age: [age] year old Surgeon(s)/Proceduralis t(s) and Long Wall Shear Operator(s): Surgeon(s) and Role: * Vinod Rojas MD [...] Implant Name Type Inv. Item Serial No. Assistant Nurse Manager Lot No. LRB No. Used Action Model No. CCA0T0.225 [facility] [employer] - [id number] Intraocular Lens CCA0T0.225 [facility] [employer] [id number] [employer] Left 1 Implanted CCA0T0.225 [...] December 06, 2023 Time: 8:45 AM Normal [facility] Laboratory - Chemistry and C hemistry - challengeOrdered By: Rodrigue Saldaña on 12-05-2023 Cobalamin (Vitamin B12) [Mass/Vol] 1190 pg/mL 211-911 [facility] ANES POSTPROC EVALon 024 ANES POSTPROC EVAL HNO ID: [id number] Author: AMAN MCCALLUM MD Service: ? Author Type: Anesthesiologist Type: Anesthesia Postprocedure Evaluation Filed: 11/22/2023 14:45 Note Text: POST ANESTHESIA EVALUATION NOTE : 1940 Procedure Summary Date: 11/22/23 Room / Location: [address] Anesthesia Start: 1159 Anesthesia Stop: 1236 [...] were associated with this procedure. Documented by nAders Krishnan APRN.CHANGE MANAGEMENT ANALYST 11/22/2023 12:38 PM EDT SIGNATURE: Aman Mccallum MD PATIENT NAME: Yaa Ward DATE: November 22, 2023 TIME: 2:45 PM CSN: [id number] Normal [facility] ANES PRE-OPon 11-22-2023 ANES PRE-OP HNO ID: [id number] Author: AMAN MCCALLUM MD Service: ? Author Type: Anesthesiologist Type: Anesthesia Preprocedure Evaluation Filed: 11/22/2023 11:46 Note Text: ANESTHESIOLOGY DAY OF SURGERY NOTE : 1940 Procedure Information Date/Time: 11/22/23 1131 Procedures: PHACOEMULSIFICATION CATARACT IMPLANT INTRAOCULAR LENS W/O ENDOSCOPIC CYCLOPHOTOCOAGULATION (Right: Eye) OPHTHALMIC BIOMETRY BY PARTIAL COHERENCE INTERFEROMETRY W/INTRAOCULAR LENS POWER CALCULATION (Right: Eye) Location: [place] [address] / [facility] Surgeons: Vinod Rojas MD Estimated [...] and consent discussed: yes. Patient / Responsible Green Party agrees to proceed: yes Patient / Surrogate [...] tablet by mouth once daily. - vit C,S-Qj-dwhny-lutein-ayesha zack (PRESERVISION AREDS-2) 250-90-40-1 mg Take by [...] 1 tablet by mouth once daily. - Slocomb-3 Fatty Acids-Vitamin E (FISH OIL) 1,000 mg [...] November 22, 2023 TIME: 11:46 AM CSN: [id number] Normal [facility] PRE-OP HNO ID: [id number] Author: AMAN MCCALLUM MD Service: ? Author Type: Anesthesiologist Type: Anesthesia Preprocedure Evaluation Filed: 11/22/2023 11:24 Note Text: ANESTHESIOLOGY DAY OF SURGERY NOTE : 1940 Procedure Information Date/Time: 11/22/23 1131 Procedures: PHACOEMULSIFICATION CATARACT IMPLANT INTRAOCULAR LENS W/O ENDOSCOPIC CYCLOPHOTOCOAGULATION (Right: Eye) OPHTHALMIC BIOMETRY BY PARTIAL COHERENCE INTERFEROMETRY W/INTRAOCULAR LENS POWER CALCULATION (Right: Eye) Location: [place] [address] / [facility] Surgeons: Vinod Rojas MD Estimated [...] and consent discussed: yes. Patient / Responsible Green Party agrees to proceed: yes Patient / Surrogate [...] tablet by mouth once daily. - vit C,R-Yt-svwgt-lutein-ayesha zack (PRESERVISION AREDS-2) 250-90-40-1 mg Take by [...] 1 tablet by mouth once daily. - Slocomb-3 Fatty Acids-Vitamin E (FISH OIL) 1,000 mg [...] November 22, 2023 TIME: 11:24 AM CSN: [id number] Normal [facility] OPERATIVE NOon 11-22-2023 OPERATIVE NO HNO ID: [id number] Author: VINOD ROJAS MD Service: Ophthalmology Author Type: Physician Type: Operative Report Filed: 11/22/2023 12:35 Note Text: [facility] OPERATIVE REPORT Log ID: [id number] Surgery/Procedure Date: 11/22/2023 Name: [facility] #: [id number] Age: [age] year old Surgeon(s)/Proceduralis t(s) and Long Wall Shear Operator(s): Surgeon(s) and Role: * Vinod Rojas MD [...] Implant Name Type Inv. Item Serial No. Assistant Nurse Manager Lot No. LRB No. Used Action Model No. CCA0T0.225 [facility] [employer] - [id number] Intraocular Lens CCA0T0.225 [facility] [employer] [id number] [employer] Right 1 Implanted CCA0T0.225 [...] November 22, 2023 Time: 12:32 PM Normal [facility] Neda 11-20-2023 LIZ Telephone ([facility]) YAA WARD ([id number]) 1940 F NFR Date Time Provider Department 11/20/23 VINOD ROJAS During your visit today, we recorded the following information about you: Patience Lin 11/22/2023 9:33 AM Addendum [facility] where Pt resides asked that any RX or speical instruction and rX orders post op instructions to be faxed to them at [phone] to her floor which is [facility]: (To contact the nurse ph no is ) Allergies As of Date: 11/20/2023 Noted Allergy Reaction ZKLRPMV-EQV-WHO REDUCTASE INHIBIT*01/23/2012 14 - Other: See Comments [...] Reason for Visit: FORWARD ALL ORDERS TO [facility] [Other] Patient Update [1234] Prescriptions as of 11/28/2023 - hydroCHLOROthiazide 25 mg tablet Take 25 mg by mouth once daily. - pregabalin (LYRICA) 100 mg capsule Take 100 mg by mouth three times a day. - vibegron (GEMTESA) 75 mg tablet Take 1 tablet by mouth once daily. - vit C,H-Wf-arhkt-lutein-ayesha zack (PRESERVISION AREDS-2) 250-90-40-1 mg Take by [...] 2,000 Units by mouth once daily. - Slocomb-3 Fatty Acids-Vitamin E (FISH OIL) 1,000 mg [...] 05/14/2021 Fatigu (more content not included)... Normal [facility] Basophil percentageOrdered B y: Rodrigue Saldaña on 10-24-2023 Cholesterol [Mass/Vol] 151 mg/dL <200 [facility] Comment on above: <200 mg/dL Desirable 200-240 mg/dL Borderline >240 mg/dL High Risk Triglyceride [Mass/Vol] 92 mg/dL <199 [facility] Comment on above: The drugs N-Acetylcy steine and Metamizole may falsely depress this assay.Serum Triglycerides Reference Interval Normal <150 mg/dL Borderline high 150 - 199 mg/dL High 200 - 499 mg/dL Very High > or = 500 mg/dL Laboratory - Chemistry and C hemistry - challengeOrdered By: Rodrigue Saldaña on 10-24-2023 Cholesterol in HDL [Mass/Vol] 53 mg/dL >40 [facility] Comment on above: The drugs N-Acetylcy steine and Metamizole may falsely depress this assay. Reference Range HDL <40 mg/dL Low HDL Cholesterol HDL >or= 60 mg/dL High HDL Cholesterol Cholesterol in LDL [Mass/Vol] 80 mg/dL 0-130 [facility] No Panel InformationOrdered By: Rodrigue Saldaña on 10-24-2023 VLDL Cholesterol 18 mg/dL 5-40 [facility] CNPNon 10-12-2023 CNPN Telephone (OPHTBE) YAA WARD ([id number]) 1940 F NFR Date Time Provider Department 10/12/23 VINOD ROJAS During your visit today, we recorded the following information about you: Carlo Med Sec, [place] 10/12/2023 11:08 AM Signed [facility] returned call to set up surgery. Please call again at [phone] Luna Med Sec, [place] 10/12/2023 5:03 PM Signed Taken care of. spoke to freelance displayer. Allergies As of Date: 10/12/2023 Noted Allergy Reaction ULMYMJF-GQY-ZIP REDUCTASE INHIBIT*01/23/2012 14 - Other: See Comments [...] 2,000 Units by mouth once daily. - Slocomb-3 Fatty Acids-Vitamin E (FISH OIL) 1,000 mg [...] 05/14/2021 Fatigue [R53.83] 05/15/2021 Encounter Status:Closed by CARLO GRUBER SEC, KELSEY on 10/12/23 Normal [facility] Laboratory - Chemistry and C hemistry - challengeOrdered By: Rodrigue Saldaña on 09-12-2023 Cobalamin (Vitamin B12) [Mass/Vol] 881 pg/mL 211-911 [facility] Absolute lymphocyte countOrd ered By: Regine Morales on 07-20-2023 Lymphocytes Auto (Unsp spec) [#/Vol] 2.27 10*3/uL 0.83-4.51 [facility] Basophil percentageOrdered B y: Regine Morales on 07-20-2023 Basophils/100 WBC (Bld) 0.8 % 0-1 [facility] Chloride [Moles/Vol] 106 mmol/L 98-107 [facility] Cholesterol [Mass/Vol] 138 mg/dL <200 [facility] Comment on above: <200 mg/dL Desirable 200-240 mg/dL Borderline >240 mg/dL High Risk Eosinophils/100 WBC (Bld) 3.9 % 0-5 [facility] Glucose [Mass/Vol] 92 mg/dL 74-[address] [facility] Neutrophils (Bld) [#/Vol] 2.3 10*3/uL 2.0-7.7 [facility] Neutrophils/100 WBC (Bld) 43.7 % 47-70 [facility] Potassium [Moles/Vol] 3.5 mmol/L 3.5-5.1 [facility] Sodium [Moles/Vol] 142 mmol/L 136-[address] [facility] Triglyceride [Mass/Vol] 105 mg/dL <199 [facility] Comment on above: The drugs N-Acetylcy steine and Metamizole may falsely depress this assay.Serum Triglycerides Reference Interval Normal <150 mg/dL Borderline high 150 - 199 mg/dL High 200 - 499 mg/dL Very High > or = 500 mg/dL WBC (Bld) [#/Vol] 5.3 10*3/uL 4.4-11.[address] [facility] Blood erythrocytes count (nu mber/volume)Ordered By: Regine Morales on 07-20-2023 RBC (Bld) [#/Vol] 4.51 10*6/uL 4.2-5.4 [facility] Blood hemoglobin measurement (mass/volume)Ordered By: Regine Morales on 07-20-2023 Hemoglobin (Bld) [Mass/Vol] 13.4 g/dL 12.0-15.0 [facility] Blood lymphocytes/100 leukoc ytesOrdered By: Regine Morales on 07-20-2023 Lymphocytes/100 WBC (Bld) 42.6 % 19-41 [facility] Blood monocytes/100 leukocyt esOrdered By: Regine Morales on 07-20-2023 Monocytes/100 WBC (Bld) 8.8 % 0-10 [facility] Blood platelet mean volumeOr dered By: Regine Morales on 07-20-2023 Platelet mean volume (Bld) [Entitic vol] 10.4 fL 6.2-12.0 [facility] Determination of erythrocyte mean corpuscular volume (MCV)Ordered By: Regine Morales on 07-20-2023 MCV (RBC) [Entitic vol] 92.7 fL 81-99 [facility] Hematocrit Auto (Bld) [Volum e fraction]Ordered By: Regine Morales on 07-20-2023 Hematocrit (Bld) [Volume fraction] 41.8 % 37-47 [facility] Laboratory - Chemistry and C hemistry - challengeOrdered By: Regine Morales on 07-20-2023 CO2 [Moles/Vol] 27.0 mmol/L 21.0-32.0 [facility] Urea nitrogen/Creatinine [Mass ratio] 34.5 mg/mg 10-20 [facility] Laboratory - Hematology and Cell countsOrdered By: Regine Morales on 07-20-2023 Erythrocyte distribution width (RBC) [Entitic vol] 51.7 fL 35.1-43.9 [facility] Erythrocyte distribution width (RBC) [Ratio] 15.1 % 11.6-14.6 [facility] Immature granulocytes/100 WBC (Bld) 0.200 % 0.0-0.9 [facility] Comment on above: IG% - Immature Granu locytes (promyelocytes, myelocytes and metamyelocytes) > 1% indicates that a LEFT SHIFT is Present. MCH (RBC) [Entitic mass] 29.7 pg 27.0-32.0 [facility] Nucleated RBC/100 WBC (Bld) [Ratio] 0 % 0-5 [facility] MCHC Auto (RBC) [Mass/Vol]Or dered By: Regine Morales on 07-20-2023 MCHC (RBC) [Mass/Vol] 32.1 g/dL 32-36 [facility] No Panel InformationOrdered By: Regine Morales on 07-20-2023 Estimated GFR (MDRD) Amer 59 mL/min >60 [facility] Comment on above: GFR Calc Estimated GFR (MDRD) Non-Af Amer 49 mL/min >60 [facility] Comment on above: Non- GFR Calc Vitamin D 25-Hydroxy 62.2 ng/mL [facility] Comment on above: Vitamin D 25(OH) Sta tus Range Deficiency <20 ng/mL (50nmol/L) Insufficiency 20 - 30 ng/mL (50 - 75 nmol/L) Sufficiency 30 - 100 ng/mL (75 - 250 nmol/L) Toxicity >100 ng/mL (>250 nmol/L) Platelets bldOrdered By: Serafin Morales on 07-20-2023 Platelets (Bld) [#/Vol] 159 10*3/uL 150-450 [facility] Serum or plasma calcium murali urement (mass/volume)Ordered By: Regine Morales on 07-20-2023 Calcium [Mass/Vol] 8.8 mg/dL 8.5-10.[address] [facility] Serum or plasma cholesterol in HDL measurement (mass/volume)Ordered By: Regine Morales on 07-20-2023 Cholesterol in HDL [Mass/Vol] 51 mg/dL >40 [facility] Comment on above: The drugs N-Acetylcy steine and Metamizole may falsely depress this assay. Reference Range HDL <40 mg/dL Low HDL Cholesterol HDL >or= 60 mg/dL High HDL Cholesterol Serum or plasma cholesterol in VLDL measurement (mass/volume)Ordered By: Regine Morales on 07-20-2023 Cholesterol in VLDL [Mass/Vol] 21 mg/dL 5-40 [facility] Serum or plasma creatinine m easurement (mass/volume)Ordered By: Regine Morales on 07-20-2023 Creatinine [Mass/Vol] 1.13 mg/dL 0.55-1.02 [facility] Comment on above: The validity of the calculated GFR & GFRAA in patients over 70 years has not been determined. Clinical correlation is essential. Serum or plasma low density lipoprotein (LDL) cholesterol measurement (mass/volume)Ordered By: Regine Morales on 07-20-2023 Cholesterol in LDL [Mass/Vol] 66 mg/dL 0-130 [facility] Serum or plasma urea nitroge n measurement (mass/volume)Ordered By: Regine Morales on 07-20-2023 Urea nitrogen [Mass/Vol] 39 mg/dL 7-18 [facility] Thin prep Papanicolaou smear with manual screeningOrdered By: Regine Morales on 07-20-2023 Thin prep Papanicolaou smear with manual screening 9 5-15 [facility] Basophil percentageOrdered B y: Efewongbe Manuelae on 07-13-2023 Potassium [Moles/Vol] 3.6 mmol/L 3.5-5.1 [facility] Absolute lymphocyte countOrd ered By: [facility] on 07-05-2023 Lymphocytes Auto (Unsp spec) [#/Vol] 2.48 10*3/uL 0.83-4.51 [facility] Basophil percentageOrdered B y: [place] [facility] on 07-05-2023 Basophils/100 WBC (Bld) 0.6 % 0-1 [facility] Bilirubin [Mass/Vol] 0.50 mg/dL 0.20-1.00 [facility] Comment on above: For patients on eltr ombopag therapy, use of Dimension [place] TBIL is not recommended. Chloride [Moles/Vol] 108 mmol/L 98-107 [facility] Eosinophils/100 WBC (Bld) 3.5 % 0-5 [facility] Glucose [Mass/Vol] 97 mg/dL 74-[address] [facility] Neutrophils (Bld) [#/Vol] 3.5 10*3/uL 2.0-7.7 [facility] Neutrophils/100 WBC (Bld) 50.4 % 47-70 [facility] Potassium [Moles/Vol] 3.4 mmol/L 3.5-5.1 [facility] Protein [Mass/Vol] 7.2 g/dL 6.4-8.[address] [facility] Sodium [Moles/Vol] 142 mmol/L 136-[address] [facility] WBC (Bld) [#/Vol] 6.9 10*3/uL 4.4-11.[address] [facility] Blood erythrocytes count (nu mber/volume)Ordered By: [facility] on 07-05-2023 RBC (Bld) [#/Vol] 4.42 10*6/uL 4.2-5.4 [facility] Blood hemoglobin measurement (mass/volume)Ordered By: [facility] on 07-05-2023 Hemoglobin (Bld) [Mass/Vol] 13.3 g/dL 12.0-15.0 [facility] Blood lymphocytes/100 leukoc ytesOrdered By: [facility] on 07-05-2023 Lymphocytes/100 WBC (Bld) 36.2 % 19-41 [facility] Blood monocytes/100 leukocyt esOrdered By: [facility] on 07-05-2023 Monocytes/100 WBC (Bld) 8.9 % 0-10 [facility] Blood platelet mean volumeOr dered By: [facility] on 07-05-2023 Platelet mean volume (Bld) [Entitic vol] 9.9 fL 6.2-12.0 [facility] Determination of erythrocyte mean corpuscular volume (MCV)Ordered By: [facility] on 07-05-2023 MCV (RBC) [Entitic vol] 91.6 fL 81-99 [facility] Hematocrit Auto (Bld) [Volum e fraction]Ordered By: [facility] on 07-05-2023 Hematocrit (Bld) [Volume fraction] 40.5 % 37-47 [facility] Laboratory - Chemistry and C hemistry - challengeOrdered By: [place] [facility] on 07-05-2023 ALP [Catalytic activity/Vol] 88 U/L 45-117 [facility] ALT [Catalytic activity/Vol] 22 U/L 13-56 [facility] CO2 [Moles/Vol] 25.0 mmol/L 21.0-32.0 [facility] Cobalamin (Vitamin B12) [Mass/Vol] 207 pg/mL 211-911 [facility] Globulin (S) [Mass/Vol] 3.9 g/dL 2.2-4.2 [facility] Urea nitrogen/Creatinine [Mass ratio] 51.8 mg/mg 10-20 [facility] Laboratory - Hematology and Cell countsOrdered By: [place] [place] [facility] on 07-05-2023 Erythrocyte distribution width (RBC) [Entitic vol] 50.5 fL 35.1-43.9 [facility] Erythrocyte distribution width (RBC) [Ratio] 14.8 % 11.6-14.6 [facility] Immature granulocytes/100 WBC (Bld) 0.400 % 0.0-0.9 [facility] Comment on above: IG% - Immature Granu locytes (promyelocytes, myelocytes and metamyelocytes) > 1% indicates that a LEFT SHIFT is Present. MCH (RBC) [Entitic mass] 30.1 pg 27.0-32.0 [facility] Nucleated RBC/100 WBC (Bld) [Ratio] 0 % 0-5 [facility] MCHC Auto (RBC) [Mass/Vol]Or dered By: [facility] on 07-05-2023 MCHC (RBC) [Mass/Vol] 32.8 g/dL 32-36 [facility] No Panel InformationOrdered By: [facility] on 07-05-2023 Estimated GFR (MDRD) Amer 61 mL/min >60 [facility] Comment on above: GFR Calc Estimated GFR (MDRD) Non-Af Amer 50 mL/min >60 [facility] Comment on above: Non- GFR Calc Thyroid Stimulating Hormone (TSH) 0.90 uIU/mL 0.358-3.74 [facility] Vitamin D 25-Hydroxy 49.2 ng/mL [facility] Comment on above: Vitamin D 25(OH) Sta tus Range Deficiency <20 ng/mL (50nmol/L) Insufficiency 20 - 30 ng/mL (50 - 75 nmol/L) Sufficiency 30 - 100 ng/mL (75 - 250 nmol/L) Toxicity >100 ng/mL (>250 nmol/L) Platelets bldOrdered By: [facility] on 07-05-2023 Platelets (Bld) [#/Vol] 180 10*3/uL 150-450 [facility] Serum or plasma albumin murali urement (mass/volume)Ordered By: [facility] on 07-05-2023 Albumin [Mass/Vol] 3.3 g/dL 3.2-5.[address] [facility] Serum or plasma albumin/glob ulin mass ratioOrdered By: [facility] on 07-05-2023 Albumin/Globulin [Mass ratio] 0.8 {ratio} 0.9-2.4 [facility] Serum or plasma calcium murali urement (mass/volume)Ordered By: [facility] on 07-05-2023 Calcium [Mass/Vol] 8.8 mg/dL 8.5-10.[address] [facility] Serum or plasma creatinine m easurement (mass/volume)Ordered By: [facility] on 07-05-2023 Creatinine [Mass/Vol] 1.10 mg/dL 0.55-1.02 [facility] Comment on above: The validity of the calculated GFR & GFRAA in patients over 70 years has not been determined. Clinical correlation is essential. Serum or plasma urea nitroge n measurement (mass/volume)Ordered By: [facility] on 07-05-2023 Urea nitrogen [Mass/Vol] 57 mg/dL 7-18 [facility] Thin prep Papanicolaou smear with manual screeningOrdered By: [facility] on 07-05-2023 Thin prep Papanicolaou smear with manual screening 22 U/L 15-37 [facility] Thin prep Papanicolaou smear with manual screening 9 5-15 [facility] Anaerobic cultureOrdered By: Rodrigue Saldaña on 06-03-2023 Bacteria identified Anaer cx Nom (Unsp spec) No anaerobic bacteria isolated. [facility] Bacteria identified Cx Nom ( Wound)Ordered By: Rodrigue Oleghe on 06-03-2023 Wound Culture Meth. resistant Stap h. aureus [facility] Wound Culture Corynebacterium striatum [facility] Gram stain for investigation of transfusion reactionOrdered By: Efewongbe Oleghe on 06-03-2023 Microscopic observation Gram stain Nom (Unsp spec) [facility] Anaerobic cultureOrdered By: Efewongbe Oleghe on 06-02-2023 Bacteria identified Anaer cx Nom (Unsp spec) No anaerobic bacteria isolated. [facility] Bacteria identified Cx Nom ( Wound)Ordered By: Efewongbe Oleghe on 06-02-2023 Wound Culture Meth. resistant Stap h. aureus [facility] Wound Culture Corynebacterium striatum [facility] Gram stain for investigation of transfusion reactionOrdered By: Efewongbe Oleghe on 06-02-2023 Microscopic observation Gram stain Nom (Unsp spec) [facility] Bacteria identified Cx Nom ( Wound)Ordered By: Efewongbe Leifghe on 05-15-2023 Wound Culture Meth. resistant Stap h. aureus [facility] Wound Culture Kocuria coryheather [facility] Gram stain for investigation of transfusion reactionOrdered By: Efjessicaongbe Manuelae on 05-15-2023 Microscopic observation Gram stain Nom (Unsp spec) [facility] Basophil percentageOrdered B y: Regine Morales on 04-19-2023 Cholesterol [Mass/Vol] 156 mg/dL <200 [facility] Comment on above: <200 mg/dL Desirable 200-240 mg/dL Borderline >240 mg/dL High Risk Triglyceride [Mass/Vol] 205 mg/dL <199 [facility] Comment on above: The drugs N-Acetylcy steine and Metamizole may falsely depress this assay.Serum Triglycerides Reference Interval Normal <150 mg/dL Borderline high 150 - 199 mg/dL High 200 - 499 mg/dL Very High > or = 500 mg/dL Serum or plasma cholesterol in HDL measurement (mass/volume)Ordered By: Regine Morales on 04-19-2023 Cholesterol in HDL [Mass/Vol] 49 mg/dL >40 [facility] Comment on above: The drugs N-Acetylcy steine and Metamizole may falsely depress this assay. Reference Range HDL <40 mg/dL Low HDL Cholesterol HDL >or= 60 mg/dL High HDL Cholesterol Serum or plasma cholesterol in VLDL measurement (mass/volume)Ordered By: Regine Morales on 04-19-2023 Cholesterol in VLDL [Mass/Vol] 41 mg/dL 5-40 [facility] Serum or plasma low density lipoprotein (LDL) cholesterol measurement (mass/volume)Ordered By: Regine Morales on 04-19-2023 Cholesterol in LDL [Mass/Vol] 66 mg/dL 0-130 [facility] Absolute lymphocyte countOrd ered By: Rodrigue Saldaña on 01-17-2023 Lymphocytes Auto (Unsp spec) [#/Vol] 2.14 10*3/uL 0.83-4.51 [facility] Basophil percentageOrdered B y: Rodrigue Saldaña on 01-17-2023 Basophils/100 WBC (Bld) 0.7 % 0-1 [facility] Chloride [Moles/Vol] 109 mmol/L 98-107 [facility] Cholesterol [Mass/Vol] 196 mg/dL <200 [facility] Comment on above: <200 mg/dL Desirable 200-240 mg/dL Borderline >240 mg/dL High Risk Eosinophils/100 WBC (Bld) 3.9 % 0-5 [facility] Glucose [Mass/Vol] 78 mg/dL 74-[address] [facility] Neutrophils (Bld) [#/Vol] 2.7 10*3/uL 2.0-7.7 [facility] Neutrophils/100 WBC (Bld) 47.8 % 47-70 [facility] Potassium [Moles/Vol] 3.5 mmol/L 3.5-5.1 [facility] Sodium [Moles/Vol] 144 mmol/L 136-[address] [facility] Triglyceride [Mass/Vol] 275 mg/dL <199 [facility] Comment on above: The drugs N-Acetylcy steine and Metamizole may falsely depress this assay.Serum Triglycerides Reference Interval Normal <150 mg/dL Borderline high 150 - 199 mg/dL High 200 - 499 mg/dL Very High > or = 500 mg/dL WBC (Bld) [#/Vol] 5.6 10*3/uL 4.4-11.[address] [facility] Blood erythrocytes count (nu mber/volume)Ordered By: Rodrigue Saldaña on 01-17-2023 RBC (Bld) [#/Vol] 4.73 10*6/uL 4.2-5.4 [facility] Blood hemoglobin measurement (mass/volume)Ordered By: Rodrigue Saldaña on 01-17-2023 Hemoglobin (Bld) [Mass/Vol] 13.9 g/dL 12.0-15.0 [facility] Blood lymphocytes/100 leukoc ytesOrdered By: jessicacentervillemaryann Saldaña on 01-17-2023 Lymphocytes/100 WBC (Bld) 38.4 % 19-41 [facility] Blood monocytes/100 leukocyt esOrdered By: naveed Saldaña on 01-17-2023 Monocytes/100 WBC (Bld) 9.0 % 0-10 [facility] Blood platelet mean volumeOr dered By: [place]maryann Saldaña on 01-17-2023 Platelet mean volume (Bld) [Entitic vol] 9.8 fL 6.2-12.0 [facility] Determination of erythrocyte mean corpuscular volume (MCV)Ordered By: Rodrigue Saldaña on 01-17-2023 MCV (RBC) [Entitic vol] 91.5 fL 81-99 [facility] Hematocrit Auto (Bld) [Volum e fraction]Ordered By: Rodrigue Saldaña on 01-17-2023 Hematocrit (Bld) [Volume fraction] 43.3 % 37-47 [facility] Laboratory - Chemistry and C hemistry - challengeOrdered By: Rodrigue Saldaña on 01-17-2023 CO2 [Moles/Vol] 28.0 mmol/L 21.0-32.0 [facility] Urea nitrogen/Creatinine [Mass ratio] 32.4 mg/mg 10-20 [facility] Laboratory - Hematology and Cell countsOrdered By: Rodrigue Saldaña on 01-17-2023 Erythrocyte distribution width (RBC) [Entitic vol] 56.1 fL 35.1-43.9 [facility] Erythrocyte distribution width (RBC) [Ratio] 16.6 % 11.6-14.6 [facility] Immature granulocytes/100 WBC (Bld) 0.200 % 0.0-0.9 [facility] Comment on above: IG% - Immature Granu locytes (promyelocytes, myelocytes and metamyelocytes) > 1% indicates that a LEFT SHIFT is Present. MCH (RBC) [Entitic mass] 29.4 pg 27.0-32.0 [facility] Nucleated RBC/100 WBC (Bld) [Ratio] 0 % 0-5 [facility] MCHC Auto (RBC) [Mass/Vol]Or dered By: Rodrigue Saldaña on 01-17-2023 MCHC (RBC) [Mass/Vol] 32.1 g/dL 32-36 [facility] No Panel InformationOrdered By: Rodrigue Saldaña on 01-17-2023 Estimated GFR (MDRD) Amer 81 mL/min >60 [facility] Comment on above: GFR Calc Estimated GFR (MDRD) Non-Af Amer 67 mL/min >60 [facility] Comment on above: Non- GFR Calc Platelets bldOrdered By: Mikel Saldaña on 01-17-2023 Platelets (Bld) [#/Vol] 125 10*3/uL 150-450 [facility] Serum or plasma calcium murali urement (mass/volume)Ordered By: Rodrigue Saldaña on 01-17-2023 Calcium [Mass/Vol] 9.0 mg/dL 8.5-10.[address] [facility] Serum or plasma cholesterol in HDL measurement (mass/volume)Ordered By: Rodrigue Saldaña on 01-17-2023 Cholesterol in HDL [Mass/Vol] 39 mg/dL >40 [facility] Comment on above: The drugs N-Acetylcy steine and Metamizole may falsely depress this assay. Reference Range HDL <40 mg/dL Low HDL Cholesterol HDL >or= 60 mg/dL High HDL Cholesterol Serum or plasma cholesterol in VLDL measurement (mass/volume)Ordered By: Rodrigue Saldaña on 01-17-2023 Cholesterol in VLDL [Mass/Vol] 55 mg/dL 5-40 [facility] Serum or plasma creatinine m easurement (mass/volume)Ordered By: Rodrigue Saldaña on 01-17-2023 Creatinine [Mass/Vol] 0.86 mg/dL 0.55-1.02 [facility] Comment on above: The validity of the calculated GFR & GFRAA in patients over 70 years has not been determined. Clinical correlation is essential. Serum or plasma low density lipoprotein (LDL) cholesterol measurement (mass/volume)Ordered By: [facility] on 01-17-2023 Cholesterol in LDL [Mass/Vol] 102 mg/dL 0-130 [facility] Serum or plasma urea nitroge n measurement (mass/volume)Or[facility] By: [facility] on 01-17-2023 Urea nitrogen [Mass/Vol] 28 mg/dL 7-18 [facility] Thin prep Papanicolaou smear with manual screeningOrdered By: [facility] on 01-17-2023 Thin prep Papanicolaou smear with manual screening 7 5-15 [facility] Absolute lymphocyte counton 07-20-2022 Lymphocytes Auto (Unsp spec) [#/Vol] 2.22 10*3/uL 0.83-4.51 [facility] Work Phone: Basophil percentageon 2021 Basophils/100 WBC (Bld) 0.7 % 0-1 [facility] Work Phone: Chloride [Moles/Vol] 105 mmol/L 98-107 [facility] Work Phone: Cholesterol [Mass/Vol] 155 mg/dL <200 [facility] Work Phone: Comment on above: <200 mg/dL Desirable 200-240 mg/dL Borderline >240 mg/dL High Risk Eosinophils/100 WBC (Bld) 5.3 % 0-5 [facility] Work Phone: [phone] Glucose [Mass/Vol] 95 mg/dL 74-[address] [facility] Work Phone: Neutrophils (Bld) [#/Vol] 3.6 10*3/uL 2.0-7.7 [facility] Work Phone: Neutrophils/100 WBC (Bld) 52.4 % 47-70 [facility] Work Phone: Potassium [Moles/Vol] 3.7 mmol/L 3.5-5.1 [facility] Work Phone: Sodium [Moles/Vol] 143 mmol/L 136-[address] [facility] Work Phone: Triglyceride [Mass/Vol] 160 mg/dL <199 [facility] Work Phone: Comment on above: The drugs N-Acetylcy steine and Metamizole may falsely depress this assay.Serum Triglycerides Reference Interval Normal <150 mg/dL Borderline high 150 - 199 mg/dL High 200 - 499 mg/dL Very High > or = 500 mg/dL WBC (Bld) [#/Vol] 6.8 10*3/uL 4.4-11.[address] [facility] Work Phone: Blood erythrocytes count (nu mber/volume)on 07-20-2022 RBC (Bld) [#/Vol] 4.66 10*6/uL 4.2-5.4 [facility] Work Phone: Blood hemoglobin measurement (mass/volume)on 07-20-2022 Hemoglobin (Bld) [Mass/Vol] 13.6 g/dL 12.0-15.0 [facility] Work Phone: Blood lymphocytes/100 leukoc yteson 07-20-2022 Lymphocytes/100 WBC (Bld) 32.6 % 19-41 [facility] Work Phone: Blood monocytes/100 leukocyt eson 07-20-2022 Monocytes/100 WBC (Bld) 8.7 % 0-10 [facility] Work Phone: Blood platelet mean volumeon 07-20-2022 Platelet mean volume (Bld) [Entitic vol] 9.8 fL 6.2-12.0 [facility] Work Phone: Determination of erythrocyte mean corpuscular volume (MCV)on 07-20-2022 MCV (RBC) [Entitic vol] 90.3 fL 81-99 [facility] Work Phone: Hematocrit Auto (Bld) [Volum e fraction]on 07-20-2022 Hematocrit (Bld) [Volume fraction] 42.1 % 37-47 [facility] Work Phone: Laboratory - Chemistry and C hemistry - challengeon 07-20-2022 CO2 [Moles/Vol] 26.0 mmol/L 21.0-32.0 [facility] Work Phone: Urea nitrogen/Creatinine [Mass ratio] 22.1 mg/mg 10-20 [facility] Work Phone: Laboratory - Hematology and Cell countson 07-20-2022 Erythrocyte distribution width (RBC) [Entitic vol] 54.7 fL 35.1-43.9 [facility] Work Phone: Erythrocyte distribution width (RBC) [Ratio] 16.7 % 11.6-14.6 [facility] Work Phone: Immature granulocytes/100 WBC (Bld) 0.300 % 0.0-0.9 [facility] Work Phone: Comment on above: IG% - Immature Granu locytes (promyelocytes, myelocytes and metamyelocytes) > 1% indicates that a LEFT SHIFT is Present. MCH (RBC) [Entitic mass] 29.2 pg 27.0-32.0 [facility] Work Phone: Nucleated RBC/100 WBC (Bld) [Ratio] 0 % 0-5 [facility] Work Phone: MCHC Auto (RBC) [Mass/Vol]on 07-20-2022 MCHC (RBC) [Mass/Vol] 32.3 g/dL 32-36 [facility]: No Panel Informationon 07-20 Estimated GFR (MDRD) Amer 59 mL/min >60 [facility] Work Phone: Comment on above: GFR Calc Estimated GFR (MDRD) Non-Af Amer 49 mL/min >60 [facility] Work Phone: Comment on above: Non- GFR Calc Vitamin D 25-Hydroxy 54.0 ng/mL [facility] Work Phone: Comment on above: Vitamin D 25(OH) Sta tus Range Deficiency <20 ng/mL (50nmol/L) Insufficiency 20 - 30 ng/mL (50 - 75 nmol/L) Sufficiency 30 - 100 ng/mL (75 - 250 nmol/L) Toxicity >100 ng/mL (>250 nmol/L) Platelets bldon 07-20-2022 Platelets (Bld) [#/Vol] 141 10*3/uL 150-450 [facility] Work Phone: Serum or plasma calcium murali urement (mass/volume)on 07-20-2022 Calcium [Mass/Vol] 8.8 mg/dL 8.5-10.[address] [facility] Work Phone: Serum or plasma cholesterol in HDL measurement (mass/volume)on 07-20-2022 Cholesterol in HDL [Mass/Vol] 38 mg/dL >40 [facility] Work Phone: Comment on above: The drugs N-Acetylcy steine and Metamizole may falsely depress this assay. Reference Range HDL <40 mg/dL Low HDL Cholesterol HDL >or= 60 mg/dL High HDL Cholesterol Serum or plasma cholesterol in VLDL measurement (mass/volume)on 07-20-2022 Cholesterol in VLDL [Mass/Vol] 32 mg/dL 5-40 [facility] Work Phone: Serum or plasma creatinine m easurement (mass/volume)on 07-20-2022 Creatinine [Mass/Vol] 1.13 mg/dL 0.55-1.02 [facility] Work Phone: Comment on above: The validity of the calculated GFR & GFRAA in patients over 70 years has not been determined. Clinical correlation is essential. Serum or plasma low density lipoprotein (LDL) cholesterol measurement (mass/volume)on 07-20-2022 Cholesterol in LDL [Mass/Vol] 85 mg/dL 0-130 [facility] Work Phone: Serum or plasma urea nitroge n measurement (mass/volume)on 07-20-2022 Urea nitrogen [Mass/Vol] 25 mg/dL 7-18 [facility] Work Phone: Thin prep Papanicolaou smear with manual screeningon 07-20-2022 Thin prep Papanicolaou smear with manual screening 12 5-15 [facility] Work Phone: Basophil percentageon 2021 Cholesterol [Mass/Vol] 151 mg/dL <200 [facility] Work Phone: Comment on above: <200 mg/dL Desirable 200-240 mg/dL Borderline >240 mg/dL High Risk Potassium [Moles/Vol] 3.3 mmol/L 3.5-5.1 [facility] Work Phone: Triglyceride [Mass/Vol] 178 mg/dL <199 [facility] Work Phone: Comment on above: The drugs N-Acetylcy steine and Metamizole may falsely depress this assay.Serum Triglycerides Reference Interval Normal <150 mg/dL Borderline high 150 - 199 mg/dL High 200 - 499 mg/dL Very High > or = 500 mg/dL Serum or plasma cholesterol in HDL measurement (mass/volume)on 04-19-2022 Cholesterol in HDL [Mass/Vol] 38 mg/dL >40 [facility] Work Phone: Comment on above: The drugs N-Acetylcy steine and Metamizole may falsely depress this assay. Reference Range HDL <40 mg/dL Low HDL Cholesterol HDL >or= 60 mg/dL High HDL Cholesterol Serum or plasma cholesterol in VLDL measurement (mass/volume)on 04-19-2022 Cholesterol in VLDL [Mass/Vol] 36 mg/dL 5-40 [facility] Work Phone: Serum or plasma low density lipoprotein (LDL) cholesterol measurement (mass/volume)on 04-19-2022 Cholesterol in LDL [Mass/Vol] 77 mg/dL 0-130 [facility] Work Phone: Absolute lymphocyte counton 01-31-2022 Lymphocytes Auto (Unsp spec) [#/Vol] 2.30 10*3/uL 0.83-4.51 [facility] Work Phone: Basophil percentageon 2021 Basophils/100 WBC (Bld) 0.5 % 0-1 [facility] Work Phone: [phone] Chloride [Moles/Vol] 108 mmol/L 98-[facility]: [phone] Eosinophils/100 WBC (Bld) 4.0 % 0-5 [facility] Work Phone: Glucose [Mass/Vol] 122 mg/dL 74-[address] [facility] Work Phone: Comment on above: Fasting Glucose resu lt from 100 to 125 mg/dL suggests IMPAIRED HOMEOSTASIS per A.D.A. criteria. Neutrophils (Bld) [#/Vol] 4.0 10*3/uL 2.0-7.7 [facility] Work Phone: Neutrophils/100 WBC (Bld) 55.0 % 47-70 [facility] Work Phone: Potassium [Moles/Vol] 3.3 mmol/L 3.5-5.1 [facility] Work Phone: Sodium [Moles/Vol] 141 mmol/L 136-[address] [facility] Work Phone: WBC (Bld) [#/Vol] 7.3 10*3/uL 4.4-11.[address] [facility] Work Phone: Blood erythrocytes count (nu mber/volume)on 01-31-2022 RBC (Bld) [#/Vol] 4.29 10*6/uL 4.2-5.4 [facility] Work Phone: Blood hemoglobin measurement (mass/volume)on 01-31-2022 Hemoglobin (Bld) [Mass/Vol] 12.6 g/dL 12.0-15.0 [facility] Work Phone: Blood lymphocytes/100 leukoc yteson 01-31-2022 Lymphocytes/100 WBC (Bld) 31.6 % 19-41 [facility] Work Phone: Blood monocytes/100 leukocyt eson 01-31-2022 Monocytes/100 WBC (Bld) 8.6 % 0-10 [facility] Work Phone: Blood platelet mean volumeon 01-31-2022 Platelet mean volume (Bld) [Entitic vol] 9.6 fL 6.2-12.0 [facility] Work Phone: Determination of erythrocyte mean corpuscular volume (MCV)on 01-31-2022 MCV (RBC) [Entitic vol] 90.0 fL 81-99 [facility] Work Phone: Hematocrit Auto (Bld) [Volum e fraction]on 01-31-2022 Hematocrit (Bld) [Volume fraction] 38.6 % 37-47 [facility] Work Phone: Laboratory - Chemistry and C hemistry - challengeon 01-31-2022 CO2 [Moles/Vol] 25.0 mmol/L 21.0-32.0 [facility] Work Phone: Urea nitrogen/Creatinine [Mass ratio] 31.1 mg/mg 10-20 [facility] Work Phone: Laboratory - Hematology and Cell countson 01-31-2022 Erythrocyte distribution width (RBC) [Entitic vol] 52.0 fL 35.1-43.9 [facility] Work Phone: Erythrocyte distribution width (RBC) [Ratio] 15.9 % 11.6-14.6 [facility] Work Phone: Immature granulocytes/100 WBC (Bld) 0.300 % 0.0-0.9 [facility] Work Phone: Comment on above: IG% - Immature Granu locytes (promyelocytes, myelocytes and metamyelocytes) > 1% indicates that a LEFT SHIFT is Present. MCH (RBC) [Entitic mass] 29.4 pg 27.0-32.0 [facility] Work Phone: Nucleated RBC/100 WBC (Bld) [Ratio] 0 % 0-5 [facility] Work Phone: MCHC Auto (RBC) [Mass/Vol]on 01-31-2022 MCHC (RBC) [Mass/Vol] 32.6 g/dL 32-36 [facility] Work Phone: No Panel Informationon 01-31 Estimated GFR (MDRD) Amer 69 mL/min >60 [facility] Work Phone: Comment on above: GFR Calc Estimated GFR (MDRD) Non-Af Amer 57 mL/min >60 [facility] Work Phone: Comment on above: Non- GFR Calc Platelets bldon 01-31-2022 Platelets (Bld) [#/Vol] 139 10*3/uL 150-450 [facility] Work Phone: Serum or plasma calcium murali urement (mass/volume)on 01-31-2022 Calcium [Mass/Vol] 8.6 mg/dL 8.5-10.[address] [facility] Work Phone: Serum or plasma creatinine m easurement (mass/volume)on 01-31-2022 Creatinine [Mass/Vol] 1.00 mg/dL 0.55-1.02 [facility] Work Phone: Comment on above: The validity of the calculated GFR & GFRAA in patients over 70 years has not been determined. Clinical correlation is essential. Serum or plasma urea nitroge n measurement (mass/volume)on 01-31-2022 Urea nitrogen [Mass/Vol] 31 mg/dL 7-18 [facility] Work Phone: Thin prep Papanicolaou smear with manual screeningon 01-31-2022 Thin prep Papanicolaou smear with manual screening 8 5-15 [facility] Work Phone: CBCon 05-17-2021 Absolute nRBC <0.01 Normal <0.01 [facility] Erythrocyte distribution width (RBC) [Ratio] 14.8 % Normal 11.5-15.0 [facility] Hematocrit (Bld) [Volume fraction] 39.7 % Normal 36.0-46.0 [facility] Hemoglobin (Bld) [Mass/Vol] 13.1 g/dL Normal 11.5-15.5 [facility] MCH 29.6 pG Normal 26.0-34.0 [facility] MCHC (RBC) [Mass/Vol] 33.0 g/dL Normal 30.5-36.0 [facility] MCV (RBC) [Entitic vol] 89.6 fL Normal 80.0-100.0 [facility] Platelet mean volume (Bld) [Entitic vol] 9.2 fL Normal 9.0-12.7 [facility] Platelets (Bld) [#/Vol] 191 10*3/uL Normal 150-400 [facility] RBC (Bld) [#/Vol] 4.43 10*6/uL Normal 3.90-5.20 [facility] WBC (Bld) [#/Vol] 7.18 10*3/uL Normal 3.70-11.00 [facility] Magnesiumon 05-17-2021 Magnesium [Mass/Vol] 1.9 mg/dL Normal 1.7-2.6 [facility] NURSING PROGon 05-17-2021 NURSING PROG HNO ID: [id number] Author: Kymberly Maldonado RN Service: ? Author Type: Registered Nurse Type: Nursing Progress Note Filed: 05/17/2021 4:33 PM Note Text: Nursing Progress Note Patient Name: Yaa Ward Patient Location: [place]/-1 Daily Note: [id number] received report from lapper RN and assumed care. Bedside report and safety checks complete. 1630 called report to nurse Jones at [place] This note was completed by: Kymberly Maldonado Normal [facility] Renal Function Panelon 05-17 Albumin [Mass/Vol] 3.3 g/dL Low 3.5-5.[address] [facility] Anion gap [Moles/Vol] 14 mmol/L Normal 0-15 [facility] Calcium [Mass/Vol] 9.0 mg/dL Normal 8.5-10.[address] [facility] Chloride [Moles/Vol] 102 mmol/L Normal 97-105 [facility] CO2 [Moles/Vol] 23 mmol/L Normal 22-30 [facility] Creatinine [Mass/Vol] 0.98 mg/dL High 0.58-0.96 [facility] eGFR- Amer. >60 Normal [facility] eGFR-All Other Races 54 . Normal [facility] Comment on above: Result Comment: eGFR (Estimated [...] GFR. Glucose [Mass/Vol] 91 mg/dL Normal 74-99 [facility] Phosphate [Mass/Vol] 3.6 mg/dL Normal 2.7-4.8 [facility] Potassium [Moles/Vol] 3.9 mmol/L Normal 3.7-5.1 [facility] Sodium [Moles/Vol] 139 mmol/L Normal 136-144 [facility] Urea nitrogen [Mass/Vol] 26 mg/dL High 7-21 [facility] THERAPY NTon 05-17-2021 THERAPY NT HNO ID: [id number] Author: Delisa Nichole OT/L Service: Occupational Therapy Author Type: Occupational Therapist Type: Therapy (PT/OT/Speech/Resp) Filed: 05/17/2021 11:31 AM Note Text: Occupational Therapy Evaluation SERVICE DATE: 05/17/2021 SERVICE TIME: 951 to 9281 ROOM: [place] [id number] Recommended Discharge Disposition: Subacute/SNF Recommended Discharge Disposition [...] Hospital Admission: pt was discharged home from [facility] on 05/15/21 and was admitted to [facility] that same day due to pt's inability to get out of a chair at home. [facility] PT had recommended SNF, which pt declined. 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 pt says she manages all her ADLs [...] slightly e (more content not included)... Normal [facility] HISTORY PHYSICALon HISTORY PHYSICAL HNO ID: [id number] Author: Baldo Whitney MD Service: General Internal Medicine Author Type: Physician Type: HANDP Filed: 05/17/2021 2:58 PM Note Text: HISTORY AND PHYSICAL EXAMINATION - INTERNAL MEDICINE PATIENT NAME: Yaa Ward SERVICE DATE: 2021 PRIMARY CARE PHYSICIAN: Delisa Delores, DO ASSESSMENT AND PLAN Malaise and fatigue -PT/OT Diverticulitis -c/w cipro and flagyl till 05/22 HTN CAD HPL GERD SUBJECTIVE CHIEF COMPLAINT: Fatigue HISTORY OF PRESENT ILLNESS: Yaa Ward is an 81 year old female who presents with fatigue and weakness. Patient was recently admitted to [facility] with diverticulitis. Therapy recommended rehab at discharge [...] total knee arthroplasty - TOTAL KNEE REPLACEMENT 2015 right knee Social History Tobacco Use - [...] 10 mL, INTRAVENOUS, DIRECTED PRN, Gen Hickman, acetaminophen (TYLENOL) 325 mg tablet, Take 2 [...] 1,000 unit Tab, (more content not included)... [facility] NURSING PROGon 2021 NURSING PROG HNO ID: [id number] Author: Juliana Arenas RN Service: ? Author Type: Registered Nurse Type: Nursing Progress Note Filed: 2021 7:11 PM Note Text: Nursing Progress Note Patient Name: Yaa Ward Patient Location: [place] Daily Note: 191 received report, pt resting in bed, assuming care, safety checks complete. This note was completed by: Juliana Arenas [facility] NURSING PROG HNO ID: [id number] Author: Ina Ho RN Service: Nursing Author Type: Registered Nurse Type: Nursing Progress Note Filed: 2021 2:53 PM Note Text: Nursing Progress Note Patient Name: Yaa Ward Patient Location: [place] Daily Note: 0730 Assumed care of pt, bed locked in low position, call light within reach, rec'd report from Meri LEONG, pt sleeping at this time, auto trays Regular diet 0840 Assessment complete, see NPR [address] Whitney, pt very depressed about losing her independence and has cried multiple times today This note was completed by: Ina Ho [facility] THERAPY NTon 2021 THERAPY NT HNO ID: [id number] Author: Dru Bowens PT Service: Physical Therapy Author Type: Physical Therapist Type: Therapy (PT/OT/Speech/Resp) Filed: 2021 10:38 AM Note Text: Physical Therapy Evaluation SERVICE DATE: 2021 SERVICE TIME: 958 to 1021 ROOM: [place] [address] Recommended Discharge Disposition: Subacute/SNF Recommended Discharge Disposition [...] Hospital Admission: pt was discharged home from [facility] on 05/15/21 and was admitted to [facility] that same day due to pt's inability to get out of a chair at home. [facility] PT had recommended SNF, which pt declined. [...] Transportation;Shopping Prior Functional Level Comments: Independent cane amb. pt says she manages all her ADLs [...] progress t (more content not included)... Normal [facility] Basic Metabolic Panlon 05-15 Anion gap [Moles/Vol] 14 mmol/L Normal 9-18 [facility] Calcium [Mass/Vol] 9.0 mg/dL Normal 8.5-10.2 [facility] Chloride [Moles/Vol] 100 mmol/L Normal 97-105 [facility] CO2 [Moles/Vol] 22 mmol/L Normal 22-33 [facility] Creatinine [Mass/Vol] 0.80 mg/dL Normal 0.58-0.96 [facility] eGFR- Amer. >60 Normal [facility] eGFR-All Other Races >60 Normal [facility] Comment on above: Result Comment: eGFR [...] GFR. Glucose [Mass/Vol] 85 mg/dL Normal 74-99 [facility] Potassium [Moles/Vol] 3.6 mmol/L Low 3.7-5.1 [facility] Sodium [Moles/Vol] 136 mmol/L Normal 136-144 [facility] Urea nitrogen [Mass/Vol] 15 mg/dL Normal 7-21 [facility] CBCon 05-15-2021 Absolute nRBC <0.01 Normal <0.01 [facility] Erythrocyte distribution width (RBC) [Ratio] 14.7 % Normal 11.5-15.0 [facility] Hematocrit (Bld) [Volume fraction] 41.5 % Normal 36.0-46.0 [facility] Hemoglobin (Bld) [Mass/Vol] 13.6 g/dL Normal 11.5-15.5 [facility] MCH 29.1 pG Normal 26.0-34.0 [facility] MCHC (RBC) [Mass/Vol] 32.8 g/dL Normal 30.5-36.0 [facility] MCV (RBC) [Entitic vol] 88.7 fL Normal 80.0-100.0 [facility] Platelet mean volume (Bld) [Entitic vol] 9.3 fL Normal 9.0-12.7 [facility] Platelets (Bld) [#/Vol] 169 10*3/uL Normal 150-400 [facility] RBC (Bld) [#/Vol] 4.68 10*6/uL Normal 3.90-5.20 [facility] WBC (Bld) [#/Vol] 7.42 10*3/uL Normal 3.70-11.00 [facility] CNDSon 05-15-2021 CNDS HNO ID: [id number] Author: Mika Borjas MD Service: Hospital Medicine [...] Attending Provider: Mika Borjas MD Primary Service: [place] [address] REASON FOR HOSPITALIZATION: Abdominal pain and general [...] Resume pre-hospital activity ALLERGIES Allergen Reactions - Wxsknlf-Pog-Nbb Red* Other: See Comments Lethargic, and muscle [...] Refills: 1 hydrOXYz (more content not included)... [facility] NURSING PROGon 05-15-2021 NURSING PROG HNO ID: [id number] Author: Meri Ye RN Service: Nursing Author Type: Registered Nurse Type: Nursing Progress Note Filed: 05/15/2021 11:19 PM Note Text: Nursing Progress Note Patient Name: Yaa Ward [facility] Transfer Note: Patient transferred into [facility] in stable condition. Actions taken: Patient belongings with patient. Pt oriented to room and call light. Pt is legally blind. VSS, pt given bed bath, yellow fall socks put on. Dr. Whitney paged for admission orders. 2229: Pt given evening meds and boxed lunch. No other needs at this time. This note was completed by: Meri Ye [facility] Basic Metabolic Panlon 05-14 Anion gap [Moles/Vol] 15 mmol/L Normal 9-18 [facility] Calcium [Mass/Vol] 8.8 mg/dL Normal 8.5-10.2 [facility] Chloride [Moles/Vol] 101 mmol/L Normal 97-105 [facility] CO2 [Moles/Vol] 21 mmol/L Low 22-33 [facility] Creatinine [Mass/Vol] 0.80 mg/dL Normal 0.58-0.96 [facility] eGFR- Amer. >60 Normal [facility] eGFR-All Other Races >60 Normal [facility] Comment on above: Result Comment: eGFR [...] GFR. Glucose [Mass/Vol] 88 mg/dL Normal 74-99 [facility] Potassium [Moles/Vol] 3.6 mmol/L Low 3.7-5.1 [facility] Sodium [Moles/Vol] 137 mmol/L Normal 136-144 [facility] Urea nitrogen [Mass/Vol] 11 mg/dL Normal 7-21 [facility] CBCon 05-14-2021 Absolute nRBC <0.01 Normal <0.01 [facility] Erythrocyte distribution width (RBC) [Ratio] 14.6 % Normal 11.5-15.0 [facility] Hematocrit (Bld) [Volume fraction] 40.5 % Normal 36.0-46.0 [facility] Hemoglobin (Bld) [Mass/Vol] 13.3 g/dL Normal 11.5-15.5 [facility] MCH 29.4 pG Normal 26.0-34.0 [facility] MCHC (RBC) [Mass/Vol] 32.8 g/dL Normal 30.5-36.0 [facility] MCV (RBC) [Entitic vol] 89.6 fL Normal 80.0-100.0 [facility] Platelet mean volume (Bld) [Entitic vol] 9.2 fL Normal 9.0-12.7 [facility] Platelets (Bld) [#/Vol] 155 10*3/uL Normal 150-400 [facility] Comment on above: Result Comment: Samp le checked for a clot. RBC (Bld) [#/Vol] 4.52 10*6/uL Normal 3.90-5.20 [facility] WBC (Bld) [#/Vol] 8.04 10*3/uL Normal 3.70-11.00 [facility] Basic Metabolic Panlon 05-13 Anion gap [Moles/Vol] 10 mmol/L Normal 9-18 [facility] Anion gap [Moles/Vol] 11 mmol/L Normal 9-18 [facility] Calcium [Mass/Vol] 8.7 mg/dL Normal 8.5-10.2 [facility] Calcium [Mass/Vol] 8.5 mg/dL Normal 8.5-10.2 [facility] Chloride [Moles/Vol] 102 mmol/L Normal 97-105 [facility] CO2 [Moles/Vol] 25 mmol/L Normal - [facility] CO2 [Moles/Vol] 23 mmol/L Normal - [facility] Creatinine [Mass/Vol] 0.83 mg/dL Normal 0.58-0.96 [facility] Creatinine [Mass/Vol] 0.84 mg/dL Normal 0.58-0.96 [facility] eGFR- Amer. >60 Normal [facility] eGFR-All Other Races >60 Normal [facility] Comment on above: Result Comment: eGFR [...] GFR. Glucose [Mass/Vol] 121 mg/dL High 74-99 [facility] Glucose [Mass/Vol] 123 mg/dL High 74-99 [facility] Potassium [Moles/Vol] 3.8 mmol/L Normal 3.7-5.1 [facility] Potassium [Moles/Vol] 3.7 mmol/L Normal 3.7-5.1 [facility] Sodium [Moles/Vol] 137 mmol/L Normal 136-144 [facility] Sodium [Moles/Vol] 136 mmol/L Normal 136-144 [facility] Urea nitrogen [Mass/Vol] 10 mg/dL Normal 7-21 [facility] CASE MANAGEMon 05-13-2021 CASE MANAGEM HNO ID: [id number] Author: Tejal Maynard Service: ? Author Type: ? Type: Care Mgt Progress Note Filed: 05/13/2021 1:24 PM Note Text: CARE MANAGEMENT PROGRESS NOTE SERVICE DATE: 05/13/2021 SERVICE TIME: 1:23 PM LOS: 1 day Delivered and explained AD paperwork to patient. Patient prefers to complete at home. SIGNATURE: Tejal Maynard PATIENT NAME: Yaa Ward DATE: May 13, 2021 TIME: 1:23 PM PAGER/CONTACT #: [phone] Normal [facility] CBCon 05-13-2021 Absolute nRBC <0.01 Normal <0.01 [facility] Erythrocyte distribution width (RBC) [Ratio] 14.6 % Normal 11.5-15.0 [facility] Hematocrit (Bld) [Volume fraction] 37.6 % Normal 36.0-46.0 [facility] Hemoglobin (Bld) [Mass/Vol] 12.4 g/dL Normal 11.5-15.5 [facility] MCH 29.8 pG Normal 26.0-34.0 [facility] MCHC (RBC) [Mass/Vol] 33.0 g/dL Normal 30.5-36.0 [facility] MCV (RBC) [Entitic vol] 90.4 fL Normal 80.0-100.0 [facility] Platelet mean volume (Bld) [Entitic vol] 9.2 fL Normal 9.0-12.7 [facility] Platelets (Bld) [#/Vol] 134 10*3/uL Low 150-400 [facility] RBC (Bld) [#/Vol] 4.16 10*6/uL Normal 3.90-5.20 [facility] WBC (Bld) [#/Vol] 7.46 10*3/uL Normal 3.70-11.00 [facility] NURSING PROGon 05-13-2021 NURSING PROG HNO ID: [id number] Author: Rosalba Colbert RN Service: ? 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 States [...] Transfer Blank diana indicate activity not attempted -HLM: 2: Bed activities / dependent transfer Learning/Educational [...] symptoms and signs-other Interventions Provided: Evaluation;Therapeutic Activity (81860);Therapeutic Exercise (46967) $ Evaluation-Low (71375) Billed Units: 1 unit Therapeutic Exercise (66418) Treatment Minutes: 15 $ Therapeutic Exercise (63444) Billed Units: 1 unit Verbally review bed activities Therapeutic Activity (34643) Treatment Minutes: 10 $ Therapeutic Activity (49132) Billed Units: 1 unit Training AND education [...] Please see d (more content not included)... [facility] ALLIED HEALTHon 05-12-2021 ALLIED HEALTH HNO ID: [id number] Author: Mariaelena Lozano [facility] Service: Pharmacy Author Type: Pharmacist Type: Allied Health Filed: 05/12/2021 1:31 AM Note Text: PHARMACY RENAL DOSING NOTE Patient Name: Yaa Ward Date of Consult: 05/12/2021 Time of Contact: 1:29 AM Baseline Serum Creatinine (last 30 day): 1.1 Estimated Creatinine Clearance: Serum creatinine: 0.8 mg/dL 05/11/211615 Estimated creatinine clearance: 52 ml/min RECOMMENDATIONS/PLAN: Date [...] to changes in clinical status. Mariaelena Lozano [facility] Pharmacy extension [phone] [facility] Basic Metabolic Panlon 05-12 Anion gap [Moles/Vol] 14 mmol/L Normal 9-18 [facility] Calcium [Mass/Vol] 8.8 mg/dL Normal 8.5-10.2 [facility] Chloride [Moles/Vol] 99 mmol/L Normal 97-105 [facility] CO2 [Moles/Vol] 23 mmol/L Normal 22-33 [facility] Creatinine [Mass/Vol] 0.83 mg/dL Normal 0.58-0.96 [facility] eGFR- Amer. >60 Normal [facility] eGFR-All Other Races >60 Normal [facility] Comment on above: Result Comment: eGFR [...] GFR. Glucose [Mass/Vol] 117 mg/dL High 74-99 [facility] Potassium [Moles/Vol] 3.0 mmol/L Low 3.7-5.1 [facility] Sodium [Moles/Vol] 136 mmol/L Normal 136-144 [facility] Urea nitrogen [Mass/Vol] 12 mg/dL Normal 7-21 [facility] CBCon 05-12-2021 Absolute nRBC <0.01 Normal <0.01 [facility] Erythrocyte distribution width (RBC) [Ratio] 14.9 % Normal 11.5-15.0 [facility] Hematocrit (Bld) [Volume fraction] 38.3 % Normal 36.0-46.0 [facility] Hemoglobin (Bld) [Mass/Vol] 12.8 g/dL Normal 11.5-15.5 [facility] MCH 30.0 pG Normal 26.0-34.0 [facility] MCHC (RBC) [Mass/Vol] 33.4 g/dL Normal 30.5-36.0 [facility] MCV (RBC) [Entitic vol] 89.9 fL Normal 80.0-100.0 [facility] Platelet mean volume (Bld) [Entitic vol] 9.1 fL Normal 9.0-12.7 [facility] Platelets (Bld) [#/Vol] 136 10*3/uL Low 150-400 [facility] RBC (Bld) [#/Vol] 4.26 10*6/uL Normal 3.90-5.20 [facility] WBC (Bld) [#/Vol] 6.43 10*3/uL Normal 3.70-11.00 [facility] HISTORY PHYSICALon HISTORY PHYSICAL HNO ID: [id number] Author: Charline Salcedo MD Service: Hospital Medicine Author Type: Physician Type: HANDP Filed: 05/12/2021 1:54 AM Note Text: DEPARTMENT OF HOSPITAL MEDICINE HISTORY AND PHYSICAL EXAM SERVICE DATE: 05/12/2021 Code Status: Not on file SERVICE TIME: 1:40 AM Primary Care Physician: Delisa Estrella DO NIGHT AND WEEKEND COVERAGE: [facility] COVERAGE: Patient admitted to [facility] From 0700 - 1630, please contact pager [phone] for patient issues. From 1630 - 0700, please contact the Night Hospitalist on pager [phone] for patient issues. Subjective CHIEF COMPLAINT: Abdominal [...] 10 mL injection (DEFINITY), , INTRAVENOUS, DIRECTED PRNGen, DO sodium chloride 0.9 % (flush) 10 [...] tablet, Rfl: 2, (more content not included)... [facility] NURSING PROGon 05-12-2021 NURSING PROG HNO ID: [id number] Author: Valerio Hernandez III, RN Service: Nursing Author Type: Registered Nurse Type: Nursing Progress Note Filed: 05/13/2021 4:40 AM Note Text: Nursing Progress Note Patient Name: Yaa Ward Patient Location: [place] [address]/[facility]-2 Daily Note: 1930 - Patient handoff report completed and pt care assumed at this time. Pt awake, and alert to person, place, and time. Belongings at bedside, bed locked and low, bed alarm on, and call light within reach. 0 - Physical assessment completed at this time - assessment as charted. Pt denies DE LA CRUZ, SOB, CP, N/V, or N/T. Pt repositioned in bed. Medicated per eMAR. Safety maintained. Continue to monitor. 0030 - Hospitalist paged for pt's c/o 10/10 neck pain. Given one-time dose Tramadol. Continue to monitor. This note was completed by: Valerio Hernandez III [facility] NURSING PROG HNO ID: [id number] Author: Rosalba Colbert RN Service: ? Author Type: Registered Nurse Type: Nursing Progress Note Filed: 05/12/2021 8:23 AM Note Text: Daily Note: 07: Report received from previous shift. See assessment as documented. Patient denies any SOB, chest pain or discomfort at this time. Call light and possesions within reach, bed locked in lowest position,and bed alarm on and functioning. Patient AANDO x 3. This note was completed by: Rosalba Colbert RN [facility] No Panel Informationon 03-28 [facility] CITRULLINE ANTIBODYon 2018 CITRULLINE ANTIBODY <1 Normal [facility] Comment on above: Result Comment: [...] U/ML Performed By: #### C ITAB #### [facility] [address] [place] [address] BILATERAL HAND; MIN 3 VIEWSo n 12-10-2018 BILATERAL HAND; MIN 3 VIEWS Patient Name: YAA WARD STUDY: BILATERAL HAND; MIN 3 VIEWS; BILATERAL WRIST COMPLT; MIN 3 VIEWS; 12/10/2018 5:10 pm INDICATION: bilateral hand pain; bilateral wrist pain, repeat for positioning.. COMPARISON: None ACCESSION NUMBER(S): [id number]; [id number] ORDERING CLINICIAN: JASON WILLETT FINDINGS: Three views [...] Electronically signed by: GUALBERTO REES MD Normal [facility] BILATERAL SHOULDER, CMPLT, M IN 2 VIEWSon 12-10-2018 BILATERAL SHOULDER, CMPLT, MIN 2 VIEWS Patient Name: YAA WARD STUDY: BILATERAL SHOULDER, CMPLT, MIN 2 VIEWS; 12/10/2018 5:10 pm INDICATION: bilateral shoulder pain, repeat for positioning.. 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 No fracture seen. No osseous lesion. 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 Electronically signed by: GUALBERTO REES MD [facility] BILATERAL WRIST COMPLT; MIN 3 VIEWSon 12-10-2018 BILATERAL WRIST COMPLT; MIN 3 VIEWS Patient Name: YAA WARD STUDY: BILATERAL HAND; MIN 3 VIEWS; BILATERAL WRIST COMPLT; MIN 3 VIEWS; 12/10/2018 5:10 pm INDICATION: bilateral hand pain; bilateral wrist pain, repeat for positioning.. COMPARISON: None ACCESSION NUMBER(S): [id number]; [id number] ORDERING CLINICIAN: JASON WILLETT FINDINGS: Three views [...] Electronically signed by: GUALBERTO REES MD Normal [facility] C-REACTIVE PROTEINon 019 CRP mass conc 0.89 mg/dL Normal [facility] Comment on above: Result Comment: REF VALUE < 1.00 Performed By: #### C RP #### [facility] [address] [place] [address] CBCon 12-10-2018 Erythrocyte distribution width Ratio (RBC) 15.9 % High 11.5 - 14.5 [facility] Comment on above: Performed By: #### C BC #### [facility] [address] [place] [address] Hematocrit Volume Fraction (Bld) 45.2 % Normal 36.0 - 46.0 [facility] Comment on above: Performed By: #### C BC #### [facility] [address] [place] [address] Hemoglobin mass conc (Bld) 14.7 g/dL Normal 12.0 - 16.0 [facility] Comment on above: Performed By: #### C BC #### [facility] [address] [place] [address] MCHC mass conc (RBC) 32.5 g/dL Normal 32.0 - 36.0 [facility] Comment on above: Performed By: #### C BC #### [facility] [address] [place] [address] MCV Entitic volume (RBC) 90 fL Normal 80 - 100 [facility] Comment on above: Performed By: #### C BC #### [facility] [address] [place] [address] Nucleated RBC/100 WBC Ratio (Bld) 0.0 /100 WBC Normal 0.0-0.0 [facility] Comment on above: Performed By: #### C BC #### [facility] [address] [place] [address] Platelets #/vol (Bld) 190 10*3/uL Normal 150 - 450 [facility] Comment on above: Performed By: #### C BC #### [facility] [address] [place] [address] RBC #/vol (Bld) 5.02 x10E12/L Normal 4.00 - 5.20 [facility] Comment on above: Performed By: #### C BC #### [facility] [address] [place] [address] WBC #/vol (Bld) 8.3 10*3/uL Normal 4.4 - 11.3 [facility] Comment on above: Performed By: #### C BC #### [facility] [address] [place] [address] COMPREHENSIVE PANELon 2018 Albumin mass conc 4.3 g/dL Normal 3.4 - 5.0 [facility] Comment on above: Performed By: #### C MP #### [facility] [address] [place] [address] ALP enzyme act/vol 110 U/L Normal 33 - 136 [facility] Comment on above: Performed By: #### C MP #### [facility] [address] [place] [address] ALT enzyme act/vol 19 U/L Normal 7 - 45 [facility] Comment on above: Result Comment: Ellen ents treated with Sulfasalazine may generate falsely decreased results for ALT. Performed By: #### C MP #### [facility] [address] [place] [address] Anion gap molar conc 17 mmol/L Normal 10 - 20 [facility] [place] Comment on above: Performed By: #### C MP #### [facility] [address] [place] [address] AST enzyme act/vol 24 U/L Normal 9 - 39 [facility] Comment on above: Performed By: #### C MP #### [facility] [address] [place] [address] Bilirubin mass conc 0.9 mg/dL Normal 0.0 - 1.2 [facility] Comment on above: Performed By: #### C MP #### [facility] [address] [place] [address] Calcium mass conc 9.8 mg/dL Normal 8.6 - 10.6 [facility] Comment on above: Performed By: #### C MP #### [facility] [address] [place] [address] Chloride molar conc 102 mmol/L Normal 98 - 107 [facility] Comment on above: Performed By: #### C MP #### [facility] [address] [place] [address] Creatinine mass conc 0.96 mg/dL Normal 0.50 - 1.05 [facility] Comment on above: Performed By: #### C MP #### [facility] [address] [place] [address] GFR- AM. 68 mL/min/1.73m2 Normal >60 [facility] Comment on above: Result Comment: CALC ULATIONS OF ESTIMATED GFR ARE PERFORMED USING THE MDRD STUDY EQUATION FOR THE IDMS-TRACEABLE CREATININE METHODS. CLIN CHEM 2007;53:766-72 Performed By: #### C MP #### [facility] [address] [place] [address] GFR-NON AM. 56 mL/min/1.73m2 Abnormal >60 [facility] Comment on above: Performed By: #### C MP #### [facility] [address] [place] [address] Glucose mass conc 94 mg/dL Normal 74 - 99 [facility] Comment on above: Performed By: #### C MP #### [facility] [address] [place] [address] HCO3 molar conc (Bld) 24 mmol/L Normal 21 - 32 [facility] Comment on above: Performed By: #### C MP #### [facility] [address] [place] [address] Potassium molar conc 4.1 mmol/L Normal 3.5 - 5.3 [facility] [place] Comment on above: Performed By: #### C MP #### [facility] [address] [place] [address] Protein mass conc 7.8 g/dL Normal 6.4 - 8.2 [facility] Comment on above: Performed By: #### C MP #### [facility] [address] [place] [address] Sodium molar conc 139 mmol/L Normal 136 - 145 [facility] Comment on above: Performed By: #### C MP #### [facility] [address] [place] [address] Urea nitrogen mass conc 41 mg/dL High 6 - 23 [facility] Comment on above: Performed By: #### C MP #### [facility] [address] [place] [address] RHEUMATOID FACTORon 12-11-19 19 RHEUMATOID FACTOR <10 Normal 0 - 15 [facility] Comment on above: Performed By: #### R F #### [facility] [address] [place] [address] SEDIMENTATION RATE, ERYTHROC YTEon 12-10-2018 SEDIMENTATION RATE, ERYTHROCYTE 55 mm/h High 0 - 30 [facility] Comment on above: Performed By: #### E SRWS #### [facility] [address] [place] [place] [address] URIC ACIDon 12-10-2018 Urate mass conc 7.9 mg/dL High 2.3 - 6.7 [facility] Comment on above: Result Comment: Radha puncture immediately after or during the administration of Metamizole may lead to falsely low results. Testing should be performed immediately prior to Metamizole dosing. Performed By: #### [facility] #### [facility] [address] [place] [address] Vital Signs Date Time Vital Sign Value Performing Clinician Facility 12-22-2024 15:09-0400 Body height 160.[address] Rodrigue Saldaña MD Work Phone: [facility] 12-22-2024 15:09-0400 Body mass index (BMI) [Ratio] 45.1 kg/m2 Dr. Rodrigue Saldaña MD Work Phone: [facility] 12-22-2024 15:09-0400 Body weight 115.[address] Rodrigue Saldaña MD Work Phone: [facility] 04-24-2024 11:23-0400 Body height 157.5 cm Duc Hritz BLOOD DONOR UNIT ASSISTANT.EMISSIONS INSPECTOR Work Phone: [facility] 04-24-2024 11:23-0400 Body mass index (BMI) [Ratio] 46.64 kg/m2 Duc Hritz BLOOD DONOR UNIT ASSISTANT.EMISSIONS INSPECTOR Work Phone: [facility] 04-24-2024 11:23-0400 Body weight 115.67 kg Duc Hritz BLOOD DONOR UNIT ASSISTANT.EMISSIONS INSPECTOR Work Phone: [facility] Comment on above: Unable to get due to wheelchair 04-24-2024 11:23-0400 Diastolic blood pressure 92 mm[Hg] Duc Hritz BLOOD DONOR UNIT ASSISTANT.EMISSIONS INSPECTOR Work Phone: [facility] 04-24-2024 11:23-0400 Heart rate 64 /min Duc Hritz BLOOD DONOR UNIT ASSISTANT.EMISSIONS INSPECTOR Work Phone: [facility] 04-24-2024 11:23-0400 Systolic blood pressure 148 mm[Hg] Duc Hritz BLOOD DONOR UNIT ASSISTANT.EMISSIONS INSPECTOR Work Phone: [facility] 03-11-2024 11:05-0400 Body height 157.5 cm Delisa Estrella DO Work Phone: [facility] 03-11-2024 11:05-0400 Body mass index (BMI) [Ratio] 46.65 kg/m2 Delisa Estrella DO Work Phone: [facility] 03-11-2024 11:05-0400 Body weight 115.7 kg Delisa Estrella DO Work Phone: [facility] 03-11-2024 11:05-0400 Diastolic blood pressure 64 mm[Hg] Delisa Estrella DO Work Phone: [facility] 03-11-2024 11:05-0400 Heart rate 67 /min Delisa Estrella DO Work Phone: [facility] 03-11-2024 11:05-0400 SaO2% (BldA) [Mass fraction] 95 % Delisa Estrella DO Work Phone: [facility] 03-11-2024 11:05-0400 Systolic blood pressure 117 mm[Hg] Delisa Estrella DO Work Phone: [facility] Encounters Encounter Date Encounter Type Care Provider Facility Start: 04-27-2025 ambulatory Rodrigue schulz OLS Facility:[facility] Start: 04-20-2025 ambulatory Rodrigue schulz OLS Facility:[facility] Start: 03-31-2025 ambulatory Miguel Wooten Facility :[facility] Start: 03-30-2025 ambulatory Rodrigue schulz OLS Facility:[facility] Start: 03-30-2025 Registered Referred Rodrigue Saldaña MD -[facility] Mirian Tyler/[place] Start: 03-10-2025 Non-patient / Non-visit Dr. Candis Jordan MD -[facility] Work Phone: Start: 03-09-2025 ambulatory Rodrigue schulz OLS Facility:[facility] Start: 03-09-2025 Registered Referred Rodrigue VelaJanina [place] Start: 03-02-2025 ambulatory Rodrigue schulz OLS Facility:[facility] Start: 03-02-2025 Registered Referred Rodrigue VelaJanina Vela [facility] Start: 02-25-2025 ambulatory Regine DONOVAN Fac ility:[facility] Start: 02-25-2025 Registered Referred Regine lees SOFTWARE RELIABILITY ENGINEER-C -[place] - [facility] Start: 02-24-2025 End: 02-24-[address] Rodrigue Saldaña MD Work Phone: [facility] Start: 02-24-2025 End: 02-24-2025 Patient encounter procedure Regine Morales SOFTWARE RELIABILITY ENGINEER-C -[facility] Work Phone: Start: 02-11-2025 ambulatory Rodrigue DONOVAN Facility:[facility] Start: 02-11-2025 Registered Referred Rodrigue VelaJanina [place] [facility] Start: 02-03-2025 ambulatory Rodrigue schulz OLS Facility:[facility] Start: 02-03-2025 [facility]istered [facility] [place] [facility] Start: 01-28-2025 ambulatory Rodrigue DONOVAN Facility:[facility] Start: 01-28-2025 Registered [facility] [place] [facility] Start: 01-19-2025 End: 01-19-[address] Rodrigue Saldaña MD Work Phone: [facility] Work Phone: Start: 01-19-2025 End: 01-19-2025 Departed Referred Regine Morales SOFTWARE RELIABILITY ENGINEER-C -[facility] - [place] [facility] Start: 01-19-2025 Registered Referred Regine lees SOFTWARE RELIABILITY ENGINEER-C -[facility] - [facility] Start: 01-19-2025 End: 01-19-2025 ambulatory Regine Morales OLS Facility:[facility] Start: 01-14-2025 End: 01-14-[address] Rodrigue Saldaañ MD Work Phone: [facility] Work Phone: Start: 01-14-2025 End: 01-14-2025 Departed Referred Rodrigue [place] Start: 01-14-2025 Registered Referred Rodrigue [place] [facility] Start: 01-14-2025 End: 01-14-2025 ambulatory Rodrigue DONOVAN Facility:[facility] Start: 01-09-2025 End: 01-09-2025 Patient encounter procedure Elvi Perez [facility] Work Phone: Start: 01-09-2025 End: 01-09-2025 ambulatory Elvi Perez [facility] Start: 01-05-2025 End: 01-05-2025 Departed Referred Rodrigue [place] [facility] Start: 01-05-2025 End: 01-05-2025 ambulatory Rodrigue DONOVAN Facility:[facility] Start: 01-02-2025 End: 01-02-[address] Rodrigue Saldaña MD Work Phone: [facility] Work Phone: Start: 01-02-2025 End: 01-02-2025 Departed Referred Rodrigue [place] Start: 01-02-2025 Registered Referred Rodrigue [facility] [facility] Start: 01-02-2025 End: 01-02-2025 ambulatory Rodrigue DONOVAN Facility:[facility] Start: 12-31-2024 End: 12-31-[address] Rodrigue Saldaña MD Work Phone: [facility] Work Phone: Start: 12-31-2024 End: 12-31-2024 Departed Referred Rodrigue [facility] [facility] [facility] Start: 12-31-2024 Registered Referred Rodrigue [facility] [facility] Start: 12-31-2024 End: 12-31-2024 ambulatory Rodrigue DONOVAN Facility:[facility] Start: 12-22-2024 End: 12-22-[address] Arjun Felton MD -[facility] Work Phone: Start: 12-22-2024 End: 12-22-2024 ambulatory Dwaynejessicasalmaryann Piper Facility:[facility] Start: 12-17-2024 End: 12-17-[address] Rodrigue Saldaña MD Work Phone: [facility] Work Phone: Start: 12-17-2024 End: 12-17-2024 Departed Referred Regine Morales NP-C -[facility] - [facility] Start: 12-17-2024 Registered Referred Regine lees SOFTWARE RELIABILITY ENGINEER-C -[facility] - [facility] Start: 12-17-2024 End: 12-17-2024 ambulatory Regine DONOVAN Facility:[facility] Start: 12-10-2024 End: 12-10-[address] Rodrigue Saldaña MD Work Phone: [facility] Work Phone: Start: 12-10-2024 End: 12-10-2024 Patient encounter procedure Regine Morales NP-Gracia -[facility] Work Phone: Start: 12-08-2024 End: 12-08-2024 Departed Referred Rodrigue [facility] [facility] [facility] Start: 12-08-2024 Registered Referred Rodrigue [facility] [facility] Start: 12-08-2024 End: 12-08-2024 ambulatory Rodrigue DONOVAN Facility:[facility] Start: 12-03-2024 End: 12-03-[address] Rodrigue Saldaña MD Work Phone: [facility] Work Phone: Start: 12-03-2024 End: 12-03-2024 Departed Referred Regine HILARIO -L - [facility] Start: 12-03-2024 Registered Referred Regine Mau lees SOFTWARE RELIABILITY ENGINEER- -[facility] - [facility] Start: 12-03-2024 End: 12-03-2024 ambulatory Regine Morales OLS Facility:[facility] Start: 11-19-2024 End: 11-19-[address] Rodrigue Saldaña MD Work Phone: [facility] Work Phone: Start: 11-19-2024 End: 11-19-2024 Departed Referred Regine Morales SOFTWARE RELIABILITY ENGINEER- -[facility] - [facility] Start: 11-19-2024 Registered Referred Regine Mau lees SOFTWARE RELIABILITY ENGINEER- -[facility] - [facility] Start: 11-19-2024 End: 11-19-2024 ambulatory Regine DONOVAN Facility:[facility] Start: 11-10-2024 End: 11-10-[address] Rodrigue Saldaña MD Work Phone: [facility] Work Phone: Start: 11-10-2024 End: 11-10-2024 Departed Referred Rodrigue Saldaña MD -[facility] [place] Start: 11-10-2024 Registered Referred Rodrigue Saldaña MD -[facility] [place] Start: 11-10-2024 End: 11-10-2024 ambulatory Rodrigue DONOVAN Facility:[facility] Start: 11-05-2024 End: 11-05-[address] Rodrigue Saldaña MD Work Phone: [facility] Work Phone: Start: 11-05-2024 End: 11-05-2024 Departed Referred Regine Morales SOFTWARE RELIABILITY ENGINEER-[facility] - [facility] Start: 11-05-2024 End: 11-05-2024 ambulatory Regine Morales OLS Facility:[facility] Start: 10-22-2024 ambulatory Rodrigue DONOVAN Facility:[facility] Start: 10-22-2024 Registered Referred Rodrigue [facility] [facility] Start: 10-20-2024 ambulatory Rodrigue schulz OLS Facility:[facility] Start: 10-20-2024 Registered Referred Rodrigue [facility] [facility] Start: 10-13-2024 ambulatory Rodrigue schulz OLS Facility:[facility] Start: 10-13-2024 Registered Referred Rodrigue [facility] [facility] Start: 10-08-2024 End: 10-08-2024 Departed Referred Rodrigue [place] Start: 10-08-2024 End: 10-08-2024 ambulatory Rodrigue DONOVAN Facility:[facility] Start: 09-24-2024 End: 09-24-2024 Departed Referred Rodrigue VelaJanina [facility] Start: 09-24-2024 End: 09-24-2024 ambulatory Rodrigue Saldaña Facility:[facility] Start: 09-15-2024 ambulatory Efjessicajarred Yadavjaspreetlexie Facili ty:[facility] Start: 09-15-2024 Registered Referred Rodrigue [facility] Start: 09-02-2024 ambulatory Efjessicajarred Yadavjaspreete Facili ty:[facility] Start: 08-27-2024 ambulatory Efjessicajarred Yadavjaspreetlexie Facili ty:[facility] Start: 08-27-2024 Registered Referred Rodrigue [facility] [facility] Start: 08-19-2024 End: 08-19-2024 ambulatory KY SHAW Facility:[facility] Start: 08-19-2024 End: 08-19-2024 Patient encounter procedure Ky Shaw OD Work Phone: Ophthalmology Comment on above: 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); Pseudophakia of both eyes Start: 08-18-2024 ambulatory Efewongbe Manuelae Facili ty:[facility] Start: 08-18-2024 Registered Referred Rodrigue Saldaña MD -[facility] - [facility] Start: 08-13-2024 ambulatory Dwaynejessicajarred Yadavkalina Facili ty:[facility] Start: 08-12-2024 End: 08-12-2024 ambulatory Regine Morales NP Facility:[facility] Start: 08-04-2024 End: 08-04-2024 ambulatory Rodrigue Leifjaspreetlexie OLS Facility:[facility] Start: 07-31-2024 ambulatory Nikkie Robertson NP Facili ty:[facility] Start: 07-31-2024 ambulatory Osvaldo Bam [facility] Start: 07-29-2024 ambulatory Osvaldo Bam [facility] Start: 07-29-2024 End: 07-29-2024 ambulatory Osvaldo Bam Facility:[facility] Start: 07-21-2024 End: 07-21-2024 ambulatory Osvaldo Bam Facility:[facility] Start: 07-07-2024 ambulatory Rodrigue Saldaña Facili ty:[facility] Start: 06-25-2024 ambulatory Aman Ragsdale Facility: [facility] Start: 06-24-2024 End: 06-24-2024 ambulatory Rodrigue Saldaña Facility:[facility] Start: 06-23-2024 ambulatory Aman Conner [place] Facility: [facility] Start: 06-17-2024 End: 06-17-2024 ambulatory Regine Morales NP Facility:[facility] Start: 06-16-2024 ambulatory Dwaynenaveed cUhe schulz OLS Facility:[facility] Start: 06-09-2024 ambulatory Rodrigue schulz OLS Facility:[facility] Start: 05-26-2024 ambulatory Dwaynejessicajarred schulz OLS Facility:[facility] Start: 04-24-2024 End: 04-24-2024 ambulatory DUC PAYAN Facility:[facility] Start: 04-24-2024 End: 04-24-2024 Office outpatient new 45 minutes Duc Payan BLOOD DONOR UNIT ASSISTANT.EMISSIONS INSPECTOR Work Phone: [facility] [place] Comment on above: 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 (Primary Dx); Change in voice; Constipation, unspecified constipation type Start: 03-11-2024 Telephone encounter Delisa rubio DO Work Phone: [facility] Comment on above: appointment today Start: 03-11-2024 End: 03-11-2024 ambulatory DELISA ESTRELLA Facility:[facility] Start: 03-11-2024 End: 03-11-2024 Patient encounter procedure Delisa Estrella DO Work Phone: [facility] Comment on above: Peripheral edema (Pr imary Dx); Primary hypertension; Chronic neck pain; Obesity, Class III, BMI 40-49.9 (morbid obesity) (HCC); Garcia's esophagus with dysplasia; Mixed hyperlipidemia; Anxiety and depression Start: 12-17-2023 Telephone encounter Delisa rubio DO Work Phone: [facility] Comment on above: Appointment (Previou s patient) Start: 12-07-2023 End: 12-07-2023 ambulatory VINOD ROJAS Facility:[facility] Start: 12-06-2023 ambulatory VINOD ROJAS Fac ility:[facility] Start: 12-05-2023 End: 12-05-2023 ambulatory [facility] Work Phone: Start: 12-05-2023 End: 12-05-2023 Departed Referred [facility] Start: 11-23-2023 End: 11-23-2023 ambulatory VINOD ROJAS Facility:[facility] Start: 11-23-2023 End: 11-23-2023 Patient encounter procedure Vinod Rojas MD Work Phone: [facility] Comment on above: Pseudophakia of righ t eye (Primary Dx); Nuclear sclerotic cataract of left eye Start: 11-22-2023 End: 11-22-2023 ambulatory VINOD ROJAS Facility:[facility] Start: 11-20-2023 Telephone encounter Vinod Rojas MD Work Phone: Ophthalmology Comment on above: [facility]; Patient Update Start: 11-16-2023 ambulatory DELISA ESTRELLA Facilit y:[facility] Start: 10-24-2023 End: 10-24-2023 ambulatory [facility] Work Phone: Start: 10-24-2023 End: 10-24-2023 Departed Referred [facility] Start: 10-12-2023 Telephone encounter Vinod Rojas MD Work Phone: [facility] Comment on above: Schedule Surgery Start: 09-18-2023 End: 09-18-2023 ambulatory VINOD ROJAS Facility:[facility] Start: 09-12-2023 End: 09-12-2023 Departed Referred [facility] Start: 07-20-2023 End: 07-20-[address] Aman Ragsdale Work Phone: [facility] Work Phone: Start: 07-20-2023 End: 07-20-[address] Aman Ragsdale Work Phone: [facility] Start: 07-13-2023 End: 07-13-[address] Aman Ragsdale Work Phone: [facility] Work Phone: Start: 07-13-2023 End: 07-13-[address] Aman Ragsdale Work Phone: [facility] Start: 07-13-[address] Aman villafuerte Work Phone: [facility] Start: 07-05-2023 End: 07-05-[address] Aman Ragsdale Work Phone: [facility] Work Phone: Start: 07-05-2023 End: 07-05-[address] Aman Ragsdale Work Phone: [facility] Start: 06-26-2023 End: 06-26-[address] Aman Ragsdale Work Phone: [facility] Work Phone: Start: 06-02-[address] [facility]uerte [facility] Work Phone: Start: 05-15-2023 End: 05-15-[address] Aman Ragsdale Work Phone: [facility] Start: 04-30-2023 End: 04-30-[address] Aman Ragsdale Work Phone: [facility] Work Phone: Start: 04-19-2023 End: 04-19-2023 ambulatory [facility] Work Phone: Start: 04-19-2023 End: 04-19-2023 Departed Referred [facility] Start: 01-17-2023 End: 01-17-2023 Departed Referred [facility] Start: 07-20-2022 End: 07-20-2022 ambulatory [facility] Work Phone: Start: 07-20-2022 End: 07-20-2022 Departed Referred [facility] Start: 04-19-2022 End: 04-19-2022 ambulatory [facility] Work Phone: Start: 04-19-2022 End: 04-19-2022 Departed Referred [facility] Start: 01-31-2022 End: 01-31-2022 Departed Referred [facility] Start: 03-28-2021 End: 03-28-2021 Subsequent hospital visit by physician Xr [facility] Comment on above: Inflammatory arthrit [...] EST Office Visit [facility] [address] [place] [address] Ky Shaw, OD [address] [place] [address] 1 YR F/U for complete eye exam and mac OCT. Ophthalmology Comment on above: 1 YR F/U for complete eye exam and mac O CT. Start: 09-23-2024 End: 09-23-2024 Patient encounter procedure 09/23/2024 2:45 PM EST Office Visit [facility] [address] [facility] [place] [id number] Adrienne Rosario MD [address] [facility] [place] [id number] esophagus without dysplasia [facility] [place] Comment on above: esophagus without dysplasia Start: 06-06-2024 Diabetes Screening Diabetes Screening [facility] Start: 05-27-2024 End: 05-27-2024 Patient encounter procedure 05/27/2024 1:45 PM EDT Office Visit [facility] [address] [place] [address] Ky Shaw, OD [address] [place] [address] Surgery follow up/refraction Ophthalmology Comment on above: Surgery follow up/refraction Start: 05-11-2024 Covid-19 Vaccine ( season) Covid-19 Vaccine () [facility] Start: 05-11-2024 Influenza vaccination [facility] Start: 04-24-2024 End: 07-24-2024 Thyrotropin [Units/volume] in Serum or Plasma THYROID STIMULATING HORMONE Lab Routine Change in voice Constipation, unspecified constipation type Expected: 04/24/2024, Expires: 07/24/2024 [facility] Work Phone: Comment on above: Expected: 04/24/2024, Expires: Start: 04-24-2024 End: 04-24-2024 Patient encounter procedure 04/24/2024 11:20 AM EDT Office Visit [facility] [address] [place] [id number] Duc Payan, MAKAYLA.EMISSIONS INSPECTOR [address] [place] [address] hx of garcia esophagus [facility] Comment on above: hx of garcia esophagus Start: 03-17-2024 End: 03-17-2024 Patient encounter procedure 03/17/2024 3:15 PM EDT Office Visit [facility] Ophthalmology [address] [facility] [address] [place] [address] Vinod Rojas MD [address] [facility] [address] [place] [address] Surgery follow up/refraction [facility]hthal[facility] Comment on above: Surgery follow up/refraction Start: 02-11-2024 Urine microalbumin profile DTaP,Tdap,Td Vaccine (2 - Td or Tdap) [facility] Start: 09-10-2023 Advance Directive Discussion Advance Directive Discussion [facility] Start: 09-10-2023 Behavioral Health Screening Behavioral Health Screening [facility] Start: 09-10-2023 Depression Assessment Depression Assessment [facility] Start: 05-11-2023 Covid-19 Vaccine ( season) Covid-19 Vaccine ( season) [facility] Start: 05-11-2023 Covid-19 Vaccine ( season) Covid-19 Vaccine ( season) [facility] Start: 05-11-2023 Influenza [facility] Start: 09-10-2022 Advance Directive Discussion Advance Directive Discussion [facility] Start: 09-10-2022 Depression Assessment Depression Assessment [facility] Start: 2015 RSV Vaccine (1 - 1-dose 75+ series) RSV Vaccine (1 - 1-dose 75+ series) [facility] Start: 2000 RSV Vaccine (1 - 1-dose 60+ series) RSV Vaccine (1 - 1-dose 60+ series) [facility] Start: 1990 Shingrix Vaccine (1 of 2) Shingrix Vaccine (1 of 2) [facility] Start: 1958 Anxiety Screening Anxiety Screening [facility] Start: 1958 Depression Screening Depression Screening [facility] End: 04-24-2025 EGD DIAGNOSTIC EGD DIAGNOSTIC Endoscopy Routine 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 Immunizations Immunization Date Immunization Notes Care Provider Fa cility 02-05-2021 COVID-19 original vaccine, full dose, monovalent (MODERNA) Xr [facility] 01-08-2021 COVID-19 original vaccine, full dose, monovalent (MODERNA) Xr [facility] 07-27-2020 influenza (HD-IIV4) vaccine, age 65+ yr, high dose, quadrivalent, PF (FLUZONE HIGH-DOSE) Xr [facility] 07-27-2020 influenza virus vacc ine, unspecified formulation Xr [facility] 07-14-2019 influenza, high dose seasonal, preservative-free Xr [facility] 06-01-2018 influenza, high dose seasonal, preservative-free Xr [facility] 07-20-2016 influenza, high dose seasonal, preservative-free Xr [facility] 01-17-2016 pneumococcal conjuga te vaccine, 13 valent Xr [facility] 02-10-2014 tetanus toxoid, redu mamta diphtheria toxoid, and acellular pertussis vaccine, adsorbed Xr [facility] 06-23-2013 influenza virus vacc ine, unspecified formulation Xr [facility] 02-22-2013 pneumococcal polysaccharide vaccine, 23 valent Xr [facility] 06-24-2012 influenza virus vacc ine, unspecified formulation Xr [facility] 08-09-2011 influenza, seasonal, injectable Vinod Fulton MD [facility] Work Phone: 10-27-2009 novel influenza-H1N1 -09, preservative-free, injectable Xr [facility] 07-14-2008 influenza, seasonal, injectable Xr [facility] Payers Date Payer Category Payer Medicaid [id number] 2024 Medicare [id number] 2024 Medicaid 2024 Medicare [id number] 2024 Self-pay [id number] 2022 Private Health Insurance [id number] 2020 Medicare [id number] 1940 Unknown [id number] Private Health Insurance [id number] Unknown [id number] Unknown [id number] Unknown [id number] Unknown [id number] 2.16.8 40.1.903482.3.579.2.462 Unknown [id number] 2.16.8 40.1.696359.3.579.2.462 Unknown [id number] 2.16.8 40.1.617334.3.579.2.462 Unknown [id number] 2.16.8 40.1.592151.3.579.2.462 Unknown [id number] 2.16.8 40.1.369411.3.579.2.462 Unknown [id number] 2.16.8 40.1.533373.3.579.2.462 Unknown [id number] 2.16.8 40.1.657637.3.579.2.462 Unknown [id number] 2.16.8 40.1.575814.3.579.2.462 Unknown [id number] 2.16.8 40.1.411313.3.579.2.462 Unknown [id number] 2.16.8 40.1.156278.3.579.2.462 Unknown [id number] 2.16.8 40.1.197014.3.579.2.462 Unknown [id number] 2.16.8 40.1.761125.3.579.2.462 Unknown [id number] 2.16.8 40.1.827600.3.579.2.462 Unknown [id number] 2.16.8 40.1.021075.3.579.2.462 Unknown [id number] 2.16.8 40.1.232482.3.579.2.462 Unknown [id number] 2.16.8 40.1.443406.3.579.2.462 Unknown [id number] 2.16.8 40.1.372708.3.579.2.462 Unknown [id number] 2.16.8 40.1.267873.3.579.2.462 Unknown [id number] 2.16.8 40.1.597969.3.579.2.462 Unknown [id number] 2.16.8 40.1.912327.3.579.2.462 Unknown [id number] 2.16.8 40.1.675544.3.579.2.462 Unknown [id number] 2.16.8 40.1.635533.3.579.2.462 Unknown [id number] 2.16.8 40.1.198410.3.579.2.462 Unknown [id number] 2.16.8 40.1.642512.3.579.2.462 Unknown [id number] 2.16.8 40.1.303610.3.579.2.462 Unknown [id number] 2.16.8 40.1.741202.3.579.2.462 Unknown [id number] 2.16.8 40.1.326106.3.579.2.462 Unknown [id number] 2.16.8 40.1.322349.3.579.2.462 Unknown [id number] 2.16.8 40.1.332257.3.579.2.462 Unknown [id number] 2.16.8 40.1.430451.3.579.2.462 Unknown [id number] 2.16.8 40.1.182095.3.579.2.462 Unknown [id number] 2.16.8 40.1.337952.3.579.2.462 Unknown [id number] 2.16.8 40.1.842365.3.579.2.462 Unknown [id number] 2.16.8 40.1.200645.3.579.2.462 Unknown [id number] 2.16.8 40.1.102123.3.579.2.462 Unknown [id number] 2.16.8 40.1.219162.3.579.2.462 Unknown [id number] 2.16.8 40.1.166978.3.579.2.462 Unknown [id number] 2.16.8 40.1.659067.3.579.2.462 Unknown [id number] 2.16.8 40.1.265703.3.579.2.462 Unknown [id number] 2.16.8 40.1.933392.3.579.2.462 Unknown [id number] 2.16.8 40.1.724973.3.579.2.462 Unknown [id number] 2.16.8 40.1.366536.3.579.2.462 Unknown [id number] 2.16.8 40.1.839148.3.579.2.462 Unknown [id number] 2.16.8 40.1.494321.3.579.2.462 Unknown [id number] 2.16.8 40.1.655131.3.579.2.462 Unknown [id number] 2.16.8 40.1.248069.3.579.2.462 Unknown [id number] 2.16.8 40.1.753634.3.579.2.462 Unknown [id number] 2.16.8 40.1.743546.3.579.2.462 Unknown [id number] 2.16.8 40.1.121372.3.579.2.462 Unknown [id number] 2.16.8 40.1.541602.3.579.2.462 Social History Date Type Detail Facility Start: 1940 Sex Assigned At Female [facility] Start: 08-18-2016 End: 07-15-2024 Tobacco smoking status NHIS Never smoked tobacco [facility] Start: 08-18-2016 End: 12-07-2023 Tobacco use and exposure Smokeless tobacco non-user [facility] Start: 03-28-2021 End: 08-19-2024 Alcohol intake Ex-drinker (finding) [facility] Start: 03-19-2020 End: 11-23-2023 History of Social function [facility] Start: 03-19-2020 End: 11-23-2023 Social connection and isolation panel [facility] Do you belong to any clubs or organizations such as adventism groups, unions, fraternal or athletic groups, or school groups? No [facility] Are you now , , , , never or living with a partner? [facility] How hard is it for y ou to pay for the very basics like food, housing, medical care, and heating Not hard at all [facility] Do you feel stress - tense, restless, nervous, or anxious, or unable to sleep at night because your mind is troubled all the time - these days [OSQ] Very much [facility] (I/We) worried whefatoumata er (my/our) food would run out before (I/we) got money to buy more. Never true [facility] Start: 08-18-2016 End: 12-07-2023 Tobacco Comment did try when she was younger [facility] Start: 03-24-2014 Alcohol Comment occasional, 6 glasses of wine per year [facility] Start: 1940 Sex Assigned At Not on file [facility] Start: 02-26-2021 End: 03-28-2021 Exposure to SARS-CoV-2 (event) Not sure [facility] Start: 12-12-2024 End: 12-26-2024 Sex Female (finding) [facility] NEGATED: Highlighted row - - AJ-Yfpmkgmkdpgk-Kso urban Work Phone: Medical Equipment Procedure Code Equipment Code Equipment Original Text Equipment Identifier Dates [id number] nd Implant - [id number] Start: 02-19-2013 Comment on above: Description: pinnacl ealtrx polyethylene acetabular liner+4 neutral 36mm ID 52mm OD 0---Head Fem +5m m 07/23 36mm Hip - [id number] Start: 02-19-2013 0---Cup Actb 52m m Pinn Sect Srs - [id number] Start: 02-19-2013 [id number] 28028-Ecre Fem 12mm Cmntls Colr - [id number] Start: 02-19-2013 Cca0t0.225 [facility] - [id number] Start: 11-22-2023 Cca0t0.225 [facility] - [id number] Start: 12-06-2023 Functional Status Date Assessment Result Facility NEGATED: Highlighted row Functional performance Functional status health issues are not documented Disease VZ-Fnkttclcedkt-Nxd urban Work Phone: Mental Status Date Assessment Result Facility NEGATED: Highlighted row Cognitive function [Interpretation] Cognitive status health issues are not documented Disease LH-Wmglwjqgrgnr-Pwb urban Work Phone: Clinical Notes 05-03-2018 to 12-22-2024 Note Date & Type Note Facility 12-22-2024 Evaluation note Diagnosis Onset Date Resolution Left shoulder pain acute December 22, 2024 3:08pm Primary osteoarthritis, left shoulder acute December 22, 2024 3:08pm [facility] Work Phone: 1(896) 870-674304-14-2025 Evaluation note* Diagnosis Onset Date Resolution Status Admit Date Left shoulder pain acute December 22, 2024 3:08pm Primary osteoarthritis, left shoulder acute December 22, 2024 3:08pm Garcia's esophagus chronic January 092024 3:24pm [facility] Work Phone: 1(530) 787-859612-10-2024 Instructions* Patient Instructions* Ky Shaw, JG - 08/19/2024 3:04 PM EST Continue Preservision daily Call with any sudden increase in flashes/floaters or changes to peripheral vision documented in this encounterAcmc Healthcare [facility]12-10-2024 NoteHNO ID: [id number] Author: KY SHAW OD Service: ? Author Type: RESTRIKE HAMMER OPERATOR Type: Progress Notes Filed: 08/19/2024 15:42 Note [...] to peripheral vision (flashes/floaters, etc.) Ky Shaw, JG August 19, 2024 3:03 [facility]12-10-2024 History of Present illness Narrative* Ky Shaw, [...] 19, 2024 3:03 PM documented in this encounterAcmc Healthcare [facility]08-15-2024 Instructions* Patient Instructions* Duc Payan APRN.CNP - 04/24/2024 11:43 AM EDT - recommend ENT referral for voice changes documented in this encounterAcmc Healthcare System [facility]igh08-15-2024 NoteHNO ID: [id number] Author: DUC PAYAN APRN.CNP Service: ? Author [...] for internal providers or letter via the [employer] for external providers. HPI: Yaa [...] dysfunctional uterine bleeding Allergies: ALLERGIES Allergen Reactions Ckcxpre-Cno-Urk Red* Other: See Comments Lethargic, and muscle [...] 1 tablet by mouth once daily. vit C,B-Kh-gbdki-lutein-zeaxan (PRESERVISION AREDS-2) 250-90-40-1 mg Take by mouth. [...] affected area twice daily. (more content not included)...[facility]08-15-2024 History of Present illness Narrative* Duc Payan APRN.EMISSIONS INSPECTOR - 04/24/2024 11:21 AM EDT Images from [...] for internal providers or letter via the [employer] for external providers. HPI: Yaa [...] dysfunctional uterine bleeding Allergies: ALLERGIES Allergen Reactions Obslyuo-Xeb-Etg Red* Other: See Comments Lethargic, and muscle [...] 1 tablet by mouth once daily. vit C,H-Jp-bzfca-lutein-zeaxan (PRESERVISION AREDS-2) 250-90-40-1 mg Take by mouth. [...] daily. (Patient not taking: Reported on 03/11/2024) Slocomb-3 Fatty Acids-Vitamin E (FISH OIL) 1,000 mg [...] 24, 2024 12:16 PM documented in this encounterAcmc Healthcare [facility]07-03-2024 Telephone encounter Note * Telephone Encounter - [...] Saldaña it she wishes. Delisa Estrella DO [facility]07-03-2024 Miscellaneous Notes* Telephone Encounter - Delisa Estrella [...] - 03/11/2024 10:04 AM EDT Saba with [facility] is calling Delisa Estrella DO today with concern regarding appointment today. Patient lives in a facility right now and the cost accounting manager of the facility is calling and [...] of symptoms: N/A Any questions, please call [phone] Closing statement: Results or non-symptom based questions: Thank you for calling [facility], your call will be returned within the next business day. Ariela Saenz documented in this encounterAcmc Healthcare System [facility]igh07-02-2024 Instructions* Patient Instructions* Delisa Estrella DO - 03/11/2024 1:00 PM EDT Discussed with Saba (your nursing rubber tire and tubes supervisor at [facility] the following recommendations: - continue care with Dr Saldaña/NEERAJ at [facility]. - would recommend Dr Saldaña/NEERAJ evaluation of leg swelling very soon. Give consideration to cardiology evaluation - consider cutting back on carbohydrates at meals. Consider more protein intake at meals. 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 One close place to your living facility is: [facility] in [place] Dr Rosario documented in this encounterAcmc Healthcare [facility]07-02-2024 History of Present illness Narrative* Delisa Estrella DO - 03/11/2024 10:20 AM EDT Yaa Ward is a 83 year old female presenting for evaluation Patient is wishing to reestablish care-she recently moved to [facility] Last office visit with me was on 03/01/2021 Pt currently lives at an assisted living facility " [facility]" in [place] where she follows with a EMISSIONS INSPECTOR and with PCP Dr Saldaña. I have [...] Dr Rojas. Previous PCP Dr Ragsdale (in [place]) retired 2 yrs ago New PCP Dr Saldaña at [facility]". States has only met the physician on time. Follows most of the time with EMISSIONS INSPECTOR Noa at [facility]: at her Assisted living facility [...] that there is no GI provider in [place]. After discussion I did place a call and found closest GI provider in [facility] in [place] Phone number: [phone] Rosario Pt aware and will try to schedule an appt. Pt is aware that I did speak with nursing supervisore Saba at [place]. DENIES: fever, chills, weight changes, night sweats, [...] 1 tablet by mouth once daily. vit C,N-Rn-lxrzf-lutein-zeaxan (PRESERVISION AREDS-2) 250-90-40-1 mg Take by mouth. [...] Take 2,000 Units by mouth once daily. Slocomb-3 Fatty Acids-Vitamin E (FISH OIL) 1,000 mg cap Take 1 capsule by mouth once daily. LUTEIN ORAL Take by mouth. ALLERGIES: ALLERGIES Allergen Reactions Dknixva-Dre-Xfk Red* Other: See Comments Lethargic, and muscle [...] discussed with pt and with Saba at [facility] my advise that I would advise pt to follow up her her PCP at [facility] FRANKI re: peripheral edema despite her HCTZ 50 mg daily dose. Would strongly consider provider to consider line erector apprentice re: peripheral edema . Saba agrees to [...] ICD9: 530.85, ICD10: K22.719 - spoke with [facility] - strongly encouraged GI consult. Spoke with pt and Saba at [facility] and related she'd discuss with PCP Dr Saldaña. 6. Mixed hyperlipidemia - ICD9: 272.2, ICD10: E78.2 7. Anxiety and depression - ICD9: 300.00, 311, ICD10: F41.9, F32.A - follow up with psychiatry dept as planned and med as prescribed. I spent a total of >60 minutes on the date of the service which included preparing to see the patient, aocr-fn-kazo patient care, completing clinical documentation, obtaining and/or reviewing separately obtained history, performing a medically appropriate examination, counseling and educating the patient/family/caregiver, ordering medications, tests, or procedures, communicating with other HCPs Nursing rubber tire and tubes supervisor Saba at [place] and also [facility] in [place](notseparately reported), independently interpreting results (not separately reported), communicating re sults to the patient/family/caregiver, and care coordination (not separately reported). Return to office as needed. Strongly encouraged pt to follow up with PCP Dr Saldaña re: peripheral edema lower extremities and to follow up on Garcia's esophagus spoke to nursing rubber tire and tubes supervisor at [place] [place] re: Saba states she will speak with Dr Saldaña and physician assistance regarding. . Portions of this note have been composed using voice recognition and may contain jar capper errors Delisa Estrella DO documented in this encounterAcmc Healthcare System [facility]igh07-02-2024 NoteHNO ID: [id number] Author: DELISA ESTRELLA, DO Service: ? Author Type: Physician Type: Progress Notes Filed: 03/16/2024 21:28 Note Text: Yaa Ward is a 83 year old female presenting for evaluation Patient is wishing to reestablish care-she recently moved to [facility] Last office visit with me was on 03/01/2021 Pt currently lives at an assisted living facility "[facility]" in [place] where she follows with a EMISSIONS INSPECTOR and with PCP Dr Saldaña. I have [...] Dr Rojas. Previous PCP Dr Ragsdale (in [place]) retired 2 yrs ago New PCP Dr Saldaña at [facility]". States has only met the physician on time. Follows most of the time with EMISSIONS INSPECTOR Noa at [facility]: at her Assisted living facility [...] Protonix 40 mg daily dose Since in [place] she has not seen a GI as advised that there is no GI provider in [place]. After discussion I did place a call and found closest GI provider in [facility] in [place] Phone number: [phone] Rosario Pt aware and will try to schedule an appt. Pt is aware that I did speak with nursing supervisore Saba at [place]. DENIES: fever, chills, weight changes, night sweats, [...] once daily. pregabalin (LYRICA (more content not included)...[facility] 03-11-2024 Telephone encounter Note* Telephone Encounter - Ariela Saenz - 03/11/2024 10:04 AM EDT Saba with [facility] is calling Delisa Estrella DO today with concern regarding appointment today. Patient lives in a facility right now and the cost accounting manager of the facility is calling and [...] of symptoms: N/A Any questions, please call [phone] Closing statement: Results or non-symptom based questions: Thank you for calling [facility], your call will be returned within the next business day. Ariela Saenz [facility]04-11-2024 Miscellaneous Notes* Telephone Encounter - Kay Cummins - 12/20/2023 8:43 AM EDT Patient called back and is scheduled on 03/11/24. * Telephone Encounter - Kay Cummins - 12/19/2023 12:[address] Estrella advised she would accept patient back to re-establish care. Tried to reach patient at both numbers listed in Epic. Was connected with [facility] and advised that we need to contact Ariadna at [phone], who handles all patient scheduling and transport. [...] calling: self Call patient at: at home [phone] (home) [phone] (cell) Was an appointment scheduled: No Closing statement: Results or non-symptom based questions: Thank you for calling [facility], your call will be returned within the next business day. Reena Mendieta documented in this encounterAcmc Healthcare System [facility]igh03-29-2024 NoteHNO ID: [id number] Author: VINOD ROJAS MD Service: ? 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 December 07, 2023 11:14 [facility]03-15-2024 NoteHNO ID: [id number] Author: VINOD ROJAS MD Service: ? 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 November 23, 2023 9:55 [facility]03-15-2024 History of Present illness Narrative * Vinod Rojas MD - 11/23/2023 9:54 AM EDT ASSESSMENT/PLAN: 1. 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 Patient doing well Use the following drops in the operated eye: Prednisolone 4x/day for 3 weeks. Wear the eye shield at bedtime for one week. Yaa Sylvia told to call immediately if any increase [...] 23, 2023 9:55 AM documented in this encounterAcmc Healthcare System [facility]igh03-12-2024 Miscellaneous Notes* Telephone Encounter - Patience Lin - 11/20/2023 4:58 PM EDT [facility] where Pt resides asked that any RX or speical instruction and rX orders post op instructions to be faxed to them at [phone] to her floor which is [facility]: (To contact the nurse ph no is ) documented in this encounterAcmc Healthcare System [facility]igh02-02-2024 Miscellaneous Notes* Telephone Encounter - Kelsey Garza - 10/12/2023 5:03 PM EST Taken care of. spoke to freelance displayer. * Telephone Encounter - Kelsey Garza - 10/12/2023 11:07 AM EST [facility] returned call to set up surgery. Please call again at [phone] documented in this encounterAcmc Healthcare System [facility]igh01-09-2024 NoteHNO ID: [id number] Author: VINOD ROJAS MD Service: ? Author [...] Vinod Rojas M.D. September 18, 2023 11:17 [facility]09-07-2021 NoteHNO ID: [id number] Author: Baldo Whitney MD Service: General Internal [...] Intake/Output Summary (Last 24 hours) at 05/17/2021 1458 Last data filed at 05/17/2021 0900 Gross per 24 hour Intake 120 ml Output 1200 ml Net -1080 ml SIGNATURE: Baldo Whitney MD DATE: May 17, 2021 TIME: 2:58 [facility]09-07-2021 NoteHNO ID: [id number] Author: Nikkie Chery RN Service: Care Management Author Type: Registered Nurse Type: Care Mgt Progress Note Filed: 05/17/2021 12:49 PM Note Text: CARE MANAGEMENT DISCHARGE NOTE SERVICE DATE: 05/17/2021 SERVICE TIME: 12:47 LOS: 0 days Admission Date: 05/15/2021 DISCHARGE ARRANGEMENT (list agency and phone number) Discharge Arrangement: long-term facility Was an expedited discharge program used?: Yes Type: Other: See Comment (COVID WAIVER) Provider Name:[facility] CAREGIVER ASSESSMENT: Caregiver is ready, willing and able to meet the patient's needs as recommended by the inter-professional team:: Yes Does the patient have an acute stroke diagnosis, or has the patient had a stroke during this admission?: No Patient's transition needs and plan for meeting these needs: [facility] [place] HANDOFF COMMUNICATION: Handoff to: Other Caregiver Other Caregiver Name/Phone: [facility] [place] TRANSPORTATION ARRANGEMENTS: Transportation Arrangements: Ambulance/[place] Transportation Agency and Phone #:: [facility] [phone] Date of Trip: 05/17/21 Time of Trip: 1600 Type of Service: BLS Non-emergency Is Patient Medicaid Pending?: No Discussion of financial coverage occurred with: PO Hat Finishing Materials Preparer Location: [facility] Destination: [facility] [place] Financial Care Management Responsibility: None ADDITIONAL CONTACT RESOURCES: Discharge Information Row Name Admission (Current) from 05/15/2021 in [facility] Observation Unit Transportation Agency MMT Transport Arranged To: [facility] [place] [facility] Facility Agency [facility] Caregiver is ready, willing and able to meet the patient's needs as recommended by the inter-professional team:: Yes Does the patient have an acute stroke diagnosis, or has the patient had a stroke during this admission?: No Needs Prior to Discharge: Ready for Discharge;Discharge Transportation Transportation Arrangements: Ambulance/[place] Transportation Agency and Phone #:: [facility] [phone] Date of Trip: 05/17/21 Time of Trip: 1600 Type of Service: BLS Non-emergency Is Patient Medicaid Pending?: No Discussion of financial coverage occurred with: POA Hat Finishing Materials Preparer Location: [facility] Destination: [facility] [place] Financial Care Management Responsibility: None IMM Follow Up Copy Given: No Reason: Other: See Comment (OBSERVATION) Patient discharged to [facility], clinical updates sent. Pt's sonMickey was called and made aware of time of transfer. Summary of Care routed to providers. 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 SIGNATURE: Nikkie Chery RN PATIENT NAME: Yaa Ward DATE: May 17, 2021 TIME: 12:46 PM PAGER/CONTACT #: [phone] NoteHNO ID: [id number] Author: Nikkie Chery RN Service: Care Management Author Type: Registered Nurse Type: Zofia Mgt Progress Note Filed: 05/17/2021 10:40 AM Note Text: CARE MANAGEMENT PROGRESS NOTE SERVICE DATE: 05/17/2021 SERVICE TIME: 10:38 LOS: 0 days [place] of Choice Given: Yes Level of Care Discussed: Group Home Facility Financial Disclosure Provided: No Provider List: Group Home Facility Provider list within the patient's requested geographic area shared with the patient/family: Yes within: 5 miles of zip code: [address] Quality and resource use metrics shared with the patient that are relevant to the patient's goals of care and treatment preferences:: Yes Metrics: Skin Integrity;Potentially Preventable 30-day Post Discharge Readmission Rates;Functional Status;Discharge to Community Needs Prior to Discharge: To Be Determined;Precertification;Accepting Facility Spoke with pt's son, Bill regarding facility choices for SNF placement. Pt's son [facility] Referrals sent. [facility] accepted patient upon discharge, facility will start precert. [facility] tasked for precert/7000. CM will follow. 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 Last discharge within 30 days: No Advance Directive: Current Advance Directive: Health Care Power of Distribution Accounting Clerk In Chart: Yes Up To Date and [...] Emergency Contact: Joaquin Ward Mobile Relation: Son Secondary Emergency Contact: CAROLYN [...] Completely I feel financially burdened by my ayx-fm-rhtloa expenses for my prescription medication:: 0 - Disagree Completely Risk Score: 0 Patient is categorized as: Low risk < 2 Are you interested in bedside delivery of your medications? No Is Patient Psychosocially Complex?: No ASSESSMENT AND PLAN: Medical Needs: Medical Needs: None Psychosocial Needs: Psychosocial Needs: None FREEDOM OF CHOICE EXPLAINED: [place] of Choice Given: Yes Level of Care Discussed: Group Home Facility Financial Disclosure Provided: No Provider List: Group Home Facility Provider list within the patient's requested geographic area shared with the patient/family: Yes within: 25 miles of zip code: ([address]) Quality and resource use metrics shared with the patient that are relevant to the patient's goals of care and treatment preferences:: Yes Metrics: Skin Integrity;Functional Status;Potentially Preventable 30-day Post Discharge Readmission Rates POTENTIAL TRANSITION PLANS Group Home Facility/Intermediate Care Facility Patient went home from a previous hopital stay and now back in the hispital. Spoke with [facility] and SNF provider list emailed to [email or web address]. SIGNATURE: Aman Robertson RN PATIENT NAME: Yaa Ward DATE: 2021 TIME: 10:26 AM PAGER/CONTACT #: [phone] Note HNO ID: [id number] Author: Kathy Delvalle RN Service: Care Management [...] 15, 2021 TIME: 12:27 PM PAGER/CONTACT #: [phone] NoteHNO ID: [id number] Author: Mika Borjas MD Service: Hospital Medicine Author Type: Physician Type: Progress Notes Filed: 05/14/2021 2:02 PM Note Text: DEPARTMENT OF HOSPITAL MEDICINE PROGRESS NOTE SERVICE DATE: 05/14/2021 SERVICE TIME: 1:56 PM Hospital Medicine/Primary Attending: Mika Borjas MD NIGHT AND WEEKEND COVERAGE: Patient admitted to 4. Please page [phone] from 7a-5p for patient issues. From 5p-7am, page the night hospitalist on pager [phone] for patient issues. Subjective INTERVAL HPI: Patient [...] Prophylaxis: VTE prophylaxis appropriate Disposition: Home with [facility] Plan of care discussed with: Provider, Patient and RN SIGNATURE: Mika Borjas MD PATIENT NAME: Yaa Ward DATE: May 14, 2021 TIME: 1:56 PM etx [id number] NoteHNO ID: [id number] Author: Genoveva Porras RN Service: Care Management [...] 13, 2021 TIME: 2:56 PM PAGER/CONTACT #: [phone] NoteHNO ID: [id number] Author: Toby Shore MD Service: Hospital Medicine Author Type: Physician Type: Progress Notes Filed: 05/13/2021 5:55 PM Note Text: DEPARTMENT OF HOSPITAL MEDICINE PROGRESS NOTE SERVICE DATE: 05/13/2021 SERVICE TIME: 8:59 Am Hospital Medicine/Primary Attending: MD Dr Clint Chavira will be assuming care in Am NIGHT AND WEEKEND COVERAGE: [facility] COVERAGE: Patient admitted to [facility] From 0700 - 1630, please contact pager [phone] for patient issues. From 1630 - 699, please contact the Night Hospitalist on pager [phone] for patient issues. Subjective INTERVAL HPI: abd [...] May 13, 2021 TIME: 5:55 PM etx [id number] NoteHNO ID: [id number] Author: Toby Shore MD Service: Hospital Medicine Author Type: Physician Type: Progress Notes Filed: 05/12/2021 3:54 PM Note Text: DEPARTMENT OF HOSPITAL MEDICINE PROGRESS NOTE SERVICE DATE: 05/12/2021 SERVICE TIME: 3:39 PM Hospital Medicine/Primary Attending: Toby Shore MD NIGHT AND WEEKEND COVERAGE: [facility] COVERAGE: Patient admitted to 4 From 0700 - 163, please contact pager [phone] for patient issues. From 163 - 07, please contact the Night Hospitalist on pager [phone] for patient issues. Subjective INTERVAL HPI: abd [...] Units SUBCUTANEOUS EVERY 12 HOURS Given, 05/12 0905/12/21 0043 -- VTE Prophylaxis: VTE prophylaxis appropriate Disposition: Home Plan of care discussed with: Provider, RN, Patient SIGNATURE: Toby Shore MD PATIENT NAME: Yaa Ward DATE: May 12, 2021 TIME: 3:39 PM etx [id number] [facility] NoteHNO ID: [id number] Author: Iva Wing RN Service: Care Management Author Type: Registered Nurse Type: Care Mgt Initial Assessment Filed: 05/12/2021 10:14 AM Note Text: CARE MANAGEMENT: ASSESSMENT AND DISCHARGE PLAN SERVICE DATE: May 12, 2021 SERVICE TIME: 10:12 AM PRIMARY CARE PHYSICIAN: Delisa Estrella DO ADMISSION STATUS: Inpatient Needs Prior to Discharge: None MEDICAL: [facility] 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 Advance Directive: Current Advance Directive: Health Care Power of Distribution Accounting Clerk In Chart: Yes Up To Date and Valid: No Tax Evaluator Attempted to Assist with AD Completion: Yes [...] Completely I feel financially burdened by my pcl-jo-jblrge expenses for my prescription medication:: 0 - [...] is willing to fill out new AD, CM department will assist. SIGNATURE: Iva Wing RN PATIENT NAME: Yaa Ward DATE: May 12, 2021 TIME: 10:12 AM PAGER/CONTACT #: Office [phone] Cell/Text [phone] History of Present illness Narrative* Ina Bustillo, RT(R) - 03/28/2021 11:30 AM EDT Radiology [...] IV DATA: Not applicable SIGNED BY: RT Irene(R) March 28, 2021 12:12 PM documented in this encounterA[facility] History of Past illness Narrative* Problem Noted Date Diagnosed Date Resolved Date Sacroiliitis 05/03/2018 02/17/2021 Overview: Added automatically from request for surgery [id number] Benign essential HTN 07/29/2015 021 Mixed hyperlipidemia [...] of this encounter (statuses as of 07/15/2023) [facility] History of Past illness Narrative* Problem Noted Date Diagnosed Date Resolved Date Sacroiliitis 05/03/2018 02/17/2021 Overview: Added automatically from request for surgery [id number] Benign essential HTN 07/29/2015 021 Mixed hyperlipidemia [...] of this encounter (statuses as of 10/13/2023) [facility] History of Past illness Narrative* Problem Noted Date Diagnosed Date Resolved Date Sacroiliitis 05/03/2018 02/17/2021 Overview: Added automatically from request for surgery [id number] Benign essential HTN 07/29/2015 021 Mixed hyperlipidemia [...] of this encounter (statuses as of 11/23/2023) [facility] History of Past illness Narrative* Problem Noted Date Diagnosed Date Resolved Date Sacroiliitis 05/03/2018 02/17/2021 Overview: Added automatically from request for surgery [id number] Benign essential HTN 07/29/2015 021 Mixed hyperlipidemia [...] of this encounter (statuses as of 11/28/2023) [facility] History of Past illness Narrative* Problem Noted Date Diagnosed Date Resolved Date Sacroiliitis 05/03/2018 02/17/2021 Overview: Added automatically from request for surgery [id number] Benign essential HTN 07/29/2015 021 Mixed hyperlipidemia [...] of this encounter (statuses as of 12/20/2023) [facility]Eval[facility]il[facility] noteNo assessment information availableWMercy Hospital Work Phone: Evaluation note* Diagnosis Inflammatory arthritis Unspecified inflammatory polyarthropathy documented in this encounter [facility]* Diagnosis Pseudophakia of right eye- Primary Lens replaced by other means Nuclear sclerotic cataract of left eye Senile nuclear sclerosis Nuclear senile cataract of both eyes documented in this encounter [facility]* Diagnosis Peripheral edema- Primary Edema Primary hypertension Unspecified essential hypertension Chronic neck pain Cervicalgia Obesity, Class III, BMI 40-49.9 (morbid obesity) (HCC) Morbid obesity Garcia's esophagus with dysplasia Garcia's esophagus Mixed hyperlipidemia Anxiety and depression Dysthymic disorder documented in this encounter [facility]* Diagnosis 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- Primary Garcia's esophagus Change in voice Other voice and resonance disorders Constipation, unspecified constipation type documented in this encounter [facility]* Diagnosis 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 Lens replaced by other means documented in this encounter [facility]* Name Dates Details Instructions not documented FN-Scqwlipgbqbj-Tudelabn Work Phone: Reason for referral (narrative)* Outpatient Procedure (Routine) - New Request Specialty Diagnoses / Procedures Referred By Denae chu Referred To Contact [facility] Diagnoses 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 Procedures EGD DIAGNOSTIC ESOPHAGOGASTRODUODENOS COPY TRANSORAL DIAGNOSTIC Duc Payan, BLOOD DONOR UNIT ASSISTANT.EMISSIONS INSPECTOR [address] [place] [address] [facility] [place] [address] Referral ID Status Reason Start Date Expiration Date Visits Requested Visits Authorized [id number] New Request Auto-Generat ed Referral 04/24/2024 04/24/2025 1 1 [facility] for referral (narrative)No reason for referral information availableWMercy Hospital Work Phone: Summary Purpose Family History [...] FoundDocuments on File Type Date Recorded 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 Expl anation Advance Directive(s) 02/19/2013 6:16 AM Documents on File Type Date Recorded 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 Expl anation Advance Directive(s) 11/06/2023 11:37 AM Advance Directive(s) 02/19/2013 6:16 AM Documents on File Type Date Recorded 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 Expl anation Advance Directive(s) 11/06/2023 11:37 AM Advance Directive(s) 02/19/2013 6:16 AM Chief Complaint and Reason for Visit Chief Complaint CORRECTION LAB WOR K CORRECTION LABWORK Chief Complaint CORRECTION LABWORK Chief Complaint CORRECTION LABWORK NEW CONCERN CORRECTION LAB WORK CORRECTION LABWORK CORRECTION LABWORK Chief Complaint CORRECTION LABWORK NEW CONCERN CORRECTION LAB WORK CORRECTION LABWORK ANNUAL EXAM CORRECTION LABWORK CORRECTION LABWORK Chief Complaint CORRECTION LABWORK NEW CONCERN CORRECTION LAB WORK CORRECTION LABWORK ANNUAL EXAM CORRECTION LABWORK CORRECTION LABWORK CORRECTION LABWORK Chief Complaint CORRECTION LABWORK CORRECTION LABWORK LABWORK LABWORK Chief Complaint LABWORK LABWORK CORRECTION LAB WORK Chief Complaint Admit Date LABWORK August 18, 2024 5 :00am LABWORK August 27, 2024 5:00am CORRECTION LAB WORK September 15, 2024 5:00am CORRECTION LAB WORK September 24, 2024 5:00am CORRECTION LAB WORK October 08, 2024 5:00am CORRECTION LAB WORK October 13, 2024 5:00am LABWORK October 20, 2024 5:00am CORRECTION LAB WORK October 22 5:00am CORRECTION LAB WORK November 05 5:00am LABWORK November 10, 2024 5:00 am CORRECTION LAB WORK November 19, 2024 5 :00am Chief Complaint Admit Date CORRECTION LAB WORK September 15, 2024 5:00am CORRECTION LAB WORK September 24, 2024 5:00am CORRECTION LAB WORK October 08, 2024 5:00am CORRECTION LAB WORK October 13, 2024 5:00am LABWORK October 20, 2024 5:00am CORRECTION LAB WORK October 22 5:00am CORRECTION LAB WORK November 05 5:00am LABWORK November 10, 2024 5:00 am CORRECTION LAB WORK November 19, 2024 5 :00am CORRECTION LAB WORK December 03, 2024 5 :00am LEFT SHOULDER December 22, 2024 3:0 8pm Room 3 December 22, 2024 3:1 5pm Reason for Visit Admit Date Left shoulder pain December 22, 2024 3:0 8pm Primary osteoarthritis, left shoulder Ap ril 2024 3:08pm Chief Complaint Admit Date CORRECTION LAB WORK September 24, 2024 5:00am CORRECTION LAB WORK October 08, 2024 5:00am CORRECTION LAB WORK October 13, 2024 5:00am LABWORK October 20, 2024 5:00am CORRECTION LAB WORK October 22 5:00am CORRECTION LAB WORK November 05 5:00am LABWORK November 10, 2024 5:00 am CORRECTION LAB WORK November 19, 2024 5 :00am CORRECTION LAB WORK December 03, 2024 5 :00am CORRECTION LABWORK December 08, 2024 5: 00am CORRECTION LAB WORK December 17, 2024 5: 00am LEFT SHOULDER December 22, 2024 3:0 8pm Room 3 December 22, 2024 3:1 5pm CORRECTION LAB WORK January 05, 2025 4 :00am GERD, DYSPHAGIA January 09, 2025 3:24pm Reason for Visit Admit Date Left shoulder pain December 22, 2024 3:0 8pm Primary osteoarthritis, left shoulder Ap ril 2024 3:08pm Garcia's esophagus January 09, 2025 3:24pm Chief Complaint Admit Date CORRECTION LAB WORK September 24, 2024 5:00am CORRECTION LAB WORK October 08, 2024 5:00am CORRECTION LAB WORK October 13, 2024 5:00am LABWORK October 20, 2024 5:00am CORRECTION LAB WORK October 22 5:00am CORRECTION LAB WORK November 05 5:00am LABWORK November 10, 2024 5:00 am CORRECTION LAB WORK November 19, 2024 5 :00am CORRECTION LAB WORK December 03, 2024 5 :00am CORRECTION LABWORK December 08, 2024 5: 00am NEW CONCERN December 10, 2024 4:22 pm CORRECTION LAB WORK December 17, 2024 5: 00am LEFT SHOULDER December 22, 2024 3:0 8pm Room 3 December 22, 2024 3:1 5pm CORRECTION LAB WORK January 05, 2025 4 :00am GERD, DYSPHAGIA January 09, 2025 3:24pm Chief Complaint Admit Date CORRECTION LAB WORK September 24, 2024 5:00am CORRECTION LAB WORK October 08, 2024 5:00am CORRECTION LAB WORK October 13, 2024 5:00am LABWORK October 20, 2024 5:00am CORRECTION LAB WORK October 22 5:00am CORRECTION LAB WORK November 05 5:00am LABWORK November 10, 2024 5:00 am CORRECTION LAB WORK November 19, 2024 5 :00am CORRECTION LAB WORK December 03, 2024 5 :00am CORRECTION LABWORK December 08, 2024 5: 00am NEW CONCERN December 10, 2024 4:22 pm CORRECTION LAB WORK December 17, 2024 5: 00am LEFT SHOULDER December 22, 2024 3:0 8pm Room 3 December 22, 2024 3:1 5pm LABWORK December 31, 2024 5:0 0am CORRECTION LAB WORK January 05, 2025 4 :00am GERD, DYSPHAGIA January 09, 2025 3:24pm Chief Complaint Admit Date CORRECTION LAB WORK October 08, 2024 5:00am CORRECTION LAB WORK October 13, 2024 5:00am LABWORK October 20, 2024 5:00am CORRECTION LAB WORK October 22 5:00am CORRECTION LAB WORK November 05 5:00am LABWORK November 10, 2024 5:00 am CORRECTION LAB WORK November 19, 2024 5 :00am CORRECTION LAB WORK December 03, 2024 5 :00am CORRECTION LABWORK December 08, 2024 5: 00am NEW CONCERN December 10, 2024 4:22 pm CORRECTION LAB WORK December 17, 2024 5: 00am LEFT SHOULDER December 22, 2024 3:0 8pm Room 3 December 22, 2024 3:1 5pm LABWORK December 31, 2024 5:0 0am LABWORK January 02, 2025 5:0 0am CORRECTION LAB WORK January 05, 2025 4 :00am GERD, DYSPHAGIA January 09, 2025 3:24pm Chief Complaint Admit Date CORRECTION LAB WORK October 13, 2024 5:00am LABWORK October 20, 2024 5:00am CORRECTION LAB WORK October 22 5:00am CORRECTION LAB WORK November 05 5:00am LABWORK November 10, 2024 5:00 am CORRECTION LAB WORK November 19, 2024 5 :00am CORRECTION LAB WORK December 03, 2024 5 :00am CORRECTION LABWORK December 08, 2024 5: 00am NEW CONCERN December 10, 2024 4:22 pm CORRECTION LAB WORK December 17, 2024 5: 00am LEFT SHOULDER December 22, 2024 3:0 8pm Room 3 December 22, 2024 3:1 5pm LABWORK December 31, 2024 5:0 0am LABWORK January 02, 2025 5:0 0am CORRECTION LAB WORK January 05, 2025 4 :00am GERD, DYSPHAGIA January 09, 2025 3:24pm LABWORK January 14, 2025 5:00am Chief Complaint Admit Date CORRECTION LAB WORK November 05 5:00am LABWORK November 10, 2024 5:00 am CORRECTION LAB WORK November 19, 2024 5 :00am CORRECTION LAB WORK December 03, 2024 5 :00am CORRECTION LABWORK December 08, 2024 5: 00am NEW CONCERN December 10, 2024 4:22 pm CORRECTION LAB WORK December 17, 2024 5: 00am LEFT SHOULDER December 22, 2024 3:0 8pm Room 3 December 22, 2024 3:1 5pm LABWORK December 31, 2024 5:0 0am LABWORK January 02, 2025 5:0 0am CORRECTION LAB WORK January 05, 2025 4 :00am GERD, DYSPHAGIA January 09, 2025 3:24pm LABWORK January 14, 2025 5:00am CORRECTION LAB WORK January 19, 2025 5:0 0am CORRECTION LAB WORK January 28, 2025 5:0 0am Chief Complaint Admit Date CORRECTION LAB WORK December 03, 2024 5 :00am CORRECTION LABWORK December 08, 2024 5: 00am NEW CONCERN December 10, 2024 4:22 pm CORRECTION LAB WORK December 17, 2024 5: 00am LEFT SHOULDER December 22, 2024 3:0 8pm Room 3 December 22, 2024 3:1 5pm LABWORK December 31, 2024 5:0 0am LABWORK January 02, 2025 5:0 0am CORRECTION LAB WORK January 05, 2025 4 :00am GERD, DYSPHAGIA January 09, 2025 3:24pm LABWORK January 14, 2025 5:00am CORRECTION LAB WORK January 19, 2025 5:0 0am CORRECTION LAB WORK January 28, 2025 5:0 0am CORRECTION LAB WORK February 03, 2025 5:0 0am LABWORK February 11, 2025 5:00a m New Concern February 24, 2025 4:18 pm CORRECTION LAB WORK February 25, 2025 4: 00am CORRECTION LAB WORK March 02, 2025 5: 00am CORRECTION LAB WORK March 09, 2025 7: 30pm Additional Source Comments INFORMATION SOURCE (unrecogn ized section and content) DATE CREATED AUTHOR 12/13/2018 [facility] DATE CREATED AUTHOR AUTHOR'S ORGANIZ ATION 12/16/2018 [facility] DATE CREATED AUTHOR AUTHOR'S ORGANIZ ATION 2021 [facility] DATE CREATED AUTHOR AUTHOR'S ORGANIZ ATION 05/18/2021 [facility] DATE CREATED AUTHOR AUTHOR'S ORGANIZ ATION 08/22/2024 [facility] DATE CREATED AUTHOR AUTHOR'S ORGANIZ ATION 05/22/2025 [facility] Goals (unrecognized section and content) [...] November 05, 2024 End: November 05, 2024 YANELIS Cochran Attending Provider Active Start: November 05, 2024 [...] November 19, 2024 End: November 19, 2024 YANELIS Cochran Attending Provider Active Start: November 19, 2024 End: November 19, 2024 Team Status: Inactive Member Role Status Dates Dr. Rodrigue Saldaña MD Primary Care Provider Active Start: December 03, 2024 End: December 03, 2024 YANELIS Cochran Attending Provider Active Start: December 03, 2024 [...] 2024 End: December 10, 2024 Regine Morales NP, NP-C Attending Provider Active Start: December 10, 2024 [...] Aman Ragsdale MD Primary Care Provider Active JN SÁNCHEZ Attending Provider Active Regulator Mechanic Relationship Specialty Start Date End Date Delisa Estrella DO [address] [place] [address] PCP - General Family Medicine 03/01/21 Team Status: Inactive Member Role Status Dates Dr. Aamn Ragsdale MD Primary Care Provider Active Dr. Rodrigue Saldaña MD Attending Provider Active Team Status: Active Member Role Status Dates Dr. Aman Ragsdale MD Primary Care Provider Active Rodrigue DONOVAN MD Attending Provider Active Regulator Mechanic Relationship Specialty Start Date End Date Delisa Estrella DO [address] [place] [address] PCP - General Family Medicine 03/01/21 Regulator Mechanic Relationship Specialty Start Date End Date LeifTea gilmanongbe [address] [place], [place] [id number] PCP - General 11/16/23 Regulator Mechanic Relationship Specialty Start Date End Date Piper Teaongbe [address] [place] [address] PCP - General 11/16/23 Regulator Mechanic Relationship Specialty Start Date End Date Piper Dwaynejessicajarred PCP - General 11/16/23 Regulator Mechanic Relationship Specialty Start Date End Date Aren Saldañamaryann PCP - General 11/16/23 Regulator Mechanic Relationship Specialty Start Date End Date Aren Saldañamaryann PCP - General 11/16/23 Regulator Mechanic Relationship Specialty Start Date End Date Aren Saldañamaryann PCP - General 11/16/23 Regulator Mechanic Relationship Specialty Start Date End Date Aren Saldañamaryann PCP - General 11/16/23 Team Status: Active [...] Care Provider Active Start: November 19, 2024 YANELIS Cochran Attending Provider Active Start: November 19, 2024 Team Status: Active Member Role Status Dates Dr. Rodrigue Saldaña MD Primary Care Provider Active Start: December 03, 2024 YANELIS Cochran Attending Provider Active Start: December 03, 2024 Team Status: Active Member Role Status Dates Dr. Rodrigue Saldaña MD Primary Care Provider Active Start: December 08, 2024 Rodrigue DONOVAN MD Attending Provider Active Start: December 08, 2024 Team Status: Active Member Role Status Dates Dr. Rodrigue Saldaña MD Primary Care Provider Active Start: December 17, 2024 Regine DONOVAN SOFTWARE RELIABILITY ENGINEER-C Attending Provider Active Start: December 17, 2024 Team Status: Active Member Role/Relationship Status Dates Dr. Rodrigue Saldaña MD Primary Care Provider Active Team Status: Inactive Member Role/Relationship Status Dates Dr. Rodrigue Saldaña MD Primary Care Provider Active Start: December 03, 2024 End: December 03, 2024 Regine DONOVAN SOFTWARE RELIABILITY ENGINEER-C Attending Provider Active Start: December 03, 2024 [...] End: December 10, 2024 Regine Morales NP SOFTWARE RELIABILITY ENGINEER-C Attending Provider Active Start: December 10, 2024 End: December 10, 2024 Team Status: Inactive Member Role/Relationship Status Dates Dr. Rodrigue Saldaña MD Primary Care Provider Active Start: December 17, 2024 End: December 17, 2024 Regine DONOVAN SOFTWARE RELIABILITY ENGINEER-C Attending Provider Active Start: December 17, 2024 [...] End: February 24, 2025 Regine Morales NP SOFTWARE RELIABILITY ENGINEER-C Attending Provider Active Start: February 24, 2025 End: February 24, 2025 Team Status: Active Member Role/Relationship Status Dates Dr. Rodrigue Saldaña MD Primary Care Provider Active Start: February 25, 2025 Regine DONOVAN SOFTWARE RELIABILITY ENGINEER-C Attending Provider Active Start: February 25, 2025 Regine DONOVAN NP-C Referring Provider Active Start: February 25, 2025 [...] or prosecute any alcohol or drug abuse patient.[facility]ighIn the event this information is protected by the Federal Confidentiality of Alcohol and Drug Abuse Patient Records regulations: The Federal rules restrict any use of the information to criminally investigate or prosecute any alcohol or drug abuse patient.[facility]ighIn the event this information is protected by the Federal Confidentiality of Alcohol and Drug Abuse Patient Records regulations: The Federal rules restrict any use of the information to criminally investigate or prosecute any alcohol or drug abuse patient.[facility]ighIn the event this information is protected by the Federal Confidentiality of Alcohol and Drug Abuse Patient Records regulations: The Federal rules restrict any use of the information to criminally investigate or prosecute any alcohol or drug abuse patient.[facility]ighIn the event this information is protected by the Federal Confidentiality of Alcohol and Drug Abuse Patient Records regulations: The Federal rules restrict any use of the information to criminally investigate or prosecute any alcohol or drug abuse patient.[facility]ighIn the event this information is protected by the Federal Confidentiality of Alcohol and Drug Abuse Patient Records regulations: The Federal rules restrict any use of the information to criminally investigate or prosecute any alcohol or drug abuse patient.[facility]ighIn the event this information is protected by the Federal Confidentiality of Alcohol and Drug Abuse Patient Records regulations: The Federal rules restrict any use of the information to criminally investigate or prosecute any alcohol or drug abuse patient.[facility]ighIn the event this information is protected by the Federal Confidentiality of Alcohol and Drug Abuse Patient Records regulations: The Federal rules restrict any use of the information to criminally investigate or prosecute any alcohol or drug abuse patient.[facility]ighIn the event this information is protected by the Federal Confidentiality of Alcohol and Drug Abuse Patient Records regulations: The Federal rules restrict any use of the information to criminally investigate or prosecute any alcohol or drug abuse patient.[facility] Reason for Visit (unrecogniz ed section and content) Reason Comments Schedule Surgery Reason Comments Post-op (Ophthalmology) Right Eye Reason Comments FORWARD ALL ORDERS TO [facility] Patient Update Reason Comments Appointment Previous patient Reason Comments appointment today Reason Comments Establish Care Assisted living [facility]. Rash Both legs- seeping w [...] BE BASED ON THE PRIMARY CLINICAL RECORDS. [facility] [employer] [facility]. provides no warranty or guarantee of the accuracy or completeness of information in this document.
[2025-05-25 08:27] LABS: Hematocrit 35.2 % (37-47); Hemoglobin 11.6 g/dL (12.0-15.0); Immature Granulocytes Count 0.040 X10^3/uL (0.0-0.0); Mean Corp Hgb Conc 33.0 g/dL (32-36); Mean Corpuscular Volume 88.9 fL (81-99); Mean Platelet Vol. 9.3 fl (6.2-12.0); NRBC Flagged by Analyzer 0 % (0-5); Platelet Count 182 K/mm3 (150-450); RBC Distribution Width CV 16.1 % (11.6-14.6); RBC Distribution Width SD 52.0 fl (35.1-43.9); Red Blood Count 3.96 M/mm3 (4.2-5.4); White Blood Count 7.5 K/mm3 (4.4-11.0)
[2025-05-25 08:51] LABS: Anion Gap 14 (5-15); BUN 39 mg/dL (4-19); BUN/Creat Ratio 29.0 RATIO (10-20); Calcium,Total 9.1 mg/dL (7.6-11.0); Carbon Dioxide 21.8 mmol/L (21.0-32.0); Chloride 105 mmol/L (98-108); Glucose 104 mg/dL (70-99); Potassium 4.0 mmol/L (3.3-5.1)
== END ==
LOC: OLS.WHLTSB 05:00
PROVIDERS: PCP Internal Medicine; Visit Provider Internal Medicine
DX: E87.6 Hypokalemia (principal)
CPT/HCPCS: 36415; 80048; 85025

== ENCOUNTER → 2025-06-22 04:30 | Outpatient (REF) | payer MEDICARE, MEDICAID, SELFPAY ==
[2025-06-22 08:31] LABS: Hematocrit 35.3 % (37-47); Hemoglobin 11.6 g/dL (12.0-15.0); Immature Granulocytes Count 0.030 X10^3/uL (0.0-0.0); Mean Corp Hgb Conc 32.9 g/dL (32-36); Mean Corpuscular Volume 88.7 fL (81-99); Mean Platelet Vol. 9.8 fl (6.2-12.0); NRBC Flagged by Analyzer 0 % (0-5); Platelet Count 158 K/mm3 (150-450); RBC Distribution Width CV 15.9 % (11.6-14.6); RBC Distribution Width SD 51.1 fl (35.1-43.9); Red Blood Count 3.98 M/mm3 (4.2-5.4); White Blood Count 7.1 K/mm3 (4.4-11.0)
[2025-06-22 08:47] LABS: Anion Gap 13 (5-15); BUN 35 mg/dL (4-19); BUN/Creat Ratio 27.5 RATIO (10-20); Calcium,Total 8.7 mg/dL (7.6-11.0); Carbon Dioxide 22.8 mmol/L (21.0-32.0); Chloride 103 mmol/L (98-108); Glucose 104 mg/dL (70-99); Potassium 4.2 mmol/L (3.3-5.1)
== END ==
LOC: OLS.WHLTSB 04:30
PROVIDERS: PCP Internal Medicine; Visit Provider Internal Medicine
DX: E87.6 Hypokalemia (principal)
CPT/HCPCS: 36415; 80048; 85025

== ENCOUNTER 2025-07-15 10:40 | Day surgery (SDC) | payer MEDICARE, MEDICAID, SELFPAY ==
--- NOTE | 2025-07-14 15:33 | PAT.ANESEVAL ---
Pre-Assessment Diagnosis/Proposed Procedure Planned Operative Procedure(s): EGD Anesthesia History Anesthesia History - collection administrator: Anesthesia History - collection administrator Hx Hospitalization No 07/14/25 14:55 Any Problems With Anesthesia No 07/14/25 14:55 Cholinesterase deficiency No 07/14/25 14:55 You/Your Family Experience No 07/14/25 14:55 fever (hyperthermia) with Relationship Recent Exposure to Contagious Disease Does patient have nerve No 07/14/25 14:55 stimulator Patient instructed to have device shut off --Does patient have Pacemaker or ICD? When Was Last Pacemaker Check QUESTION #4 FULL TEXT: You/Your Family Experience fever (hyperthermia) with Anesthesia Last Oral Intake Last Oral intake: Last Oral Intake NPO since Meds taken in AM with sips of water? Meds patient instructed to take am of surgery PONV PONV - collection administrator: PONV - collection administrator Female Yes 07/14/25 14:55 HX of Motion Sickness No 07/14/25 14:55 HX of N/V After Surgery No 07/14/25 14:55 Non-Smoker Yes 07/14/25 14:55 Duration of Surgery greater No 07/14/25 14:55 than 60 minutes Number of Risk Factors 2 07/14/25 14:55 PONV Score Moderate Risk 07/14/25 14:55 Height & Weight Height & Weight: Anesthesia: Height & Weight Height 5 ft 3 in 06/09/25 12:48 Respiratory Assessment Respiratory Assessment - collection administrator: Respiratory Tract Infection Hx - collection administrator Hx Respiratory Tract Infection No 07/14/25 14:55 STOP Sleep Apnea STOP Sleep Apnea - collection administrator: STOP Sleep Apnea - collection administrator Hx Hypertension Yes 07/14/25 14:55 Hx Sleep Apnea No 07/14/25 14:55 CPAP BIPAP Do you snore loudly (louder No 07/14/25 14:55 than talking or can be heard Do you often feel tired/ Yes 07/14/25 14:55 fatigued/ sleepy during daytime? Has anyone observed you stop No 07/14/25 14:55 breathing during sleep? STOP Results Positive 07/14/25 14:55 QUESTION #5 FULL TEXT : Do you snore loudly (louder than talking or can be heard through closed doors)? 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 Specify any problems Hx of Preganancy in last 3 N/A 07/14/25 14:55 Months Nurse Filling Out Transfusion NBUCHER 07/14/25 14:55 & Questions: Date: 07/14/25 07/14/25 14:55 Time: 14:56 07/14/25 14:55 Patient unable to answer at this time (ie. confused, unrespo /Reproduction History /Reproductive History - collection administrator: /Reproductive Hx- collection administrator Hx Now No 07/14/25 14:55 Gestational Age (in weeks): EDC: Hx Hx Para Hx Section SAB No 07/14/25 14:55 PFS Medical History (Updated 07/14/25 @ 15:02 by Giovana Major) Anxiety History of diverticulitis History of IBS GERD (gastroesophageal reflux disease) Wears glasses Arthritis Gastric reflux Non-smoker History of pain when walking History of edema Primary osteoarthritis, left shoulder Left shoulder pain Colonoscopy planned UTI (urinary tract infection) Uterine fibroid Lumbar spinal stenosis Other lack of coordination Muscle weakness (generalized) Need for assistance with personal care Personal history of colonic polyps Family history of malignant neoplasm of digestive organs Depression, unspecified Irritable bowel syndrome with constipation Pure hypercholesterolemia, unspecified Presence of unspecified artificial hip joint Radiculopathy, lumbar region Spondylosis without myelopathy or radiculopathy, lumbar region Spondylosis without myelopathy or radiculopathy, cervical region Other intervertebral disc degeneration, lumbosacral region with discogenic back pain and lower extremity pain Unspecified urinary incontinence Fibromyalgia Rash and other nonspecific skin eruption Pain in left foot Pain of right foot Unspecified abnormalities of gait and mobility Unspecified hemorrhoids Constipation, unspecified Diverticulitis of intestine, part unspecified, without perforation or abscess with bleeding Pires's esophagus with dysplasia, unspecified Gastro-esophageal reflux disease without esophagitis Rheumatic fever without heart involvement Retinal edema Unspecified macular degeneration Age-related nuclear cataract, unspecified eye Heartburn Other symbolic dysfunctions Localized edema Dry eye syndrome Tinea corporis Vitamin D deficiency, unspecified Overactive bladder Muscle wasting and atrophy, not elsewhere classified, right lower leg Muscle wasting and atrophy, not elsewhere classified, left lower leg Dry mouth Hypokalemia Vitamin B12 deficiency anemia Nausea Irritant contact dermatitis due to detergent History of falling Other chest pain Polyosteoarthritis, unspecified Difficulty in walking, not elsewhere classified Home Medications ?Medication ?Instructions ?Recorded ?Last Taken ?Type acetaminophen 500 mg capsule 500 mg PO TID 07/15/24 Unknown History aspirin 81 mg tablet,delayed 81 mg PO QDAY 07/15/24 Unknown History release cholecalciferol (vitamin D3) 25 25 mcg PO QDAY 07/15/24 Unknown History mcg (1,000 unit) capsule magnesium hydroxide 400 mg/5 mL 30 ml PO QDAY PRN constipation 07/15/24 Unknown History oral suspension (Milk of Magnesia) nitroglycerin 0.4 mg sublingual 0.4 mg sublingual Q5M PRN chest 07/15/24 Unknown History tablet pain pantoprazole 40 mg tablet,delayed 40 mg PO QHS 07/15/24 Unknown History release peg 400-propylene glycol 0.4 %-0.3 1 drp ophthalmic (eye) QDAY PRN 07/15/24 Unknown History % eye drops (Systane (propylene dry eye(s) glycol)) potassium chloride 20 mEq 40 meq PO QDAY 07/15/24 Unknown History tablet,extended release potassium chloride 20 mEq 20 meq PO QPM 07/15/24 Unknown History tablet,extended release(part/cryst) sennosides 8.6 mg-docusate sodium 1 tab-cap PO BID PRN constipation 07/15/24 Unknown History 50 mg capsule (Senna Plus) sertraline 50 mg tablet 150 mg PO QHS 07/15/24 Unknown History vit A 300 mcg-C 200 mg-E 27 1 tab PO QDAY 07/15/24 Unknown History mg-lutein 2 mg and minerals tablet (I-Lary) metoprolol tartrate 25 mg tablet 25 mg PO BID #180 tabs 07/21/24 Unknown Rx pregabalin 100 mg capsule 100 mg PO BID 30 days #60 caps 10/27/25 Unknown Rx aluminum-mag hydroxide-simethicone 5 ml PO Q4H PRN dyspepsia 07/14/25 Unknown History 200 mg-200 mg-20 mg/5 mL oral susp ammonium lactate 12 % lotion 1 applic topical BID 07/14/25 Unknown History furosemide 20 mg tablet 20 mg PO WESA 07/14/25 Unknown History furosemide 40 mg tablet (Lasix) 40 mg PO SUMOTUTHFR 07/14/25 Unknown History lisinopril 5 mg tablet 5 mg PO DAILY 07/14/25 Unknown History loperamide 2 mg capsule 2 mg PO Q6H PRN loose stool 07/14/25 Unknown History melatonin 5 mg tablet 5 mg PO QHS 07/14/25 Unknown History psyllium husk 0.4 gram capsule 0.4 g PO DAILY 07/14/25 Unknown History tolterodine 4 mg capsule,extended 4 mg PO DAILY 07/14/25 Unknown History release 24 hr tramadol 50 mg tablet 50 mg PO Q6H PRN PRN pain 07/14/25 Unknown History Allergy/AdvReac Type Severity Reaction Status Date / Time clindamycin Allergy Unknown Rash/Itchin Verified 07/14/25 14:54 g morphine Allergy Unknown GI Upset, Verified 07/14/25 14:54 Vomiting Penicillins Allergy Unknown Rash Verified 07/14/25 14:54 Qxbxsmz-[id number]-ZuM Reductase Allergy Unknown See Note Verified 07/14/25 14:54 Inhibitor Sulfa (Sulfonamide AdvReac Intermediate thrush Verified 07/14/25 14:54 Antibiotics) oxycodone AdvReac Mild Intolerance Verified 07/14/25 14:54 Family History Father Glaucoma Arthritis Macular degeneration Colon cancer Ischemic heart disease Mother Glaucoma Arthritis Macular degeneration Colon cancer Aunt Macular degeneration Surgical History History of total right knee replacement History of total knee replacement History of total left hip replacement History of total abdominal hysterectomy History of tonsillectomy Hx of removal of ovary History of foot surgery History of appendectomy Social History Smoking Status: Never smoker Electronic Cigarette Use: not used alcohol intake: current alcohol intake frequency: holidays/special occasions only substance use type: does not use Audit: Pertinent Findings Pertinent Findings EKG Perinent findings: 07/21/2024. Sinus rhythm?frequent PACs. Voltage criteria for LVH. Consider old anterior infarct. Stress test pertinent findings: 07/31/2024. EF is 66%. Rest and stress SPECT Cardiolite nuclear imaging demonstrate uniform tracer uptake and perfusion appearing within normal limits. Echo (EF%) pertinent findings: 06/30/2024. EF is 70% with abnormal relaxation pattern. PASP was 45 to 50 mmHg. No major valvular abnormalities noted. No aortic stenosis. Consult pertinent findings: 07/21/2024. Dr. Kuhn. 1. Chest pain-with typical and atypical features. Patient correlates it with eating food. However there is radiation into the neck. Will check a stress test. (See above). 2. Hypertension-above goal BP. Increase furosemide. Add metoprolol. 3. Pires's esophagus?recommend GI workup. 4. Bilateral lower extremity edema-normal LV systolic function but impaired relaxation on echo. Consider venous incompetence. Recommended compression stockings. Also increase Lasix. Recommendation Anesthesia Recommendation Anesthesia recommendation: OPTIMIZED for anesthesia
[2025-07-15] VITALS (8 sets, daily range): BP systolic 113–148; BP diastolic 55–90; PULSE 58–62; RESP 16; TEMP 36.1–36.2; O2SAT 96–98; BMI 43.7
--- NOTE | 2025-07-15 11:18 | PCM.HP.STD ---
HPI - General General Date of Admission: 07/15/25 Date of Service: 07/15/25 HPI Narrative WANDA LUJAN, is a 85 F who presents [Chief Complaint: Barretts esophagus Pt has a PMHx of Barrets esophagus diagnosed about 10 years ago. She has been on PPI therapy since she was diagnosed. He last EGD was about 5 years ago. She endorses some issues with heartburn/chest pain in the middle of the night. She will mix some baking soda in water and drink it which is helpful. She is unable to have tums in her room at the custodial. pt last colonoscopy was about 5 years ago as well. She denies any lower GI issues such as constipation, diarrhea or melena. [facility] Medical History Anxiety History of diverticulitis History of IBS GERD (gastroesophageal reflux disease) Wears glasses Arthritis Gastric reflux Non-smoker History of pain when walking History of edema Primary osteoarthritis, left shoulder Left shoulder pain Colonoscopy planned UTI (urinary tract infection) Uterine fibroid Lumbar spinal stenosis Other lack of coordination Muscle weakness (generalized) Need for assistance with personal care Personal history of colonic polyps Family history of malignant neoplasm of digestive organs Depression, unspecified Irritable bowel syndrome with constipation Pure hypercholesterolemia, unspecified Presence of unspecified artificial hip joint Radiculopathy, lumbar region Spondylosis without myelopathy or radiculopathy, lumbar region Spondylosis without myelopathy or radiculopathy, cervical region Other intervertebral disc degeneration, lumbosacral region with discogenic back pain and lower extremity pain Unspecified urinary incontinence Fibromyalgia Rash and other nonspecific skin eruption Pain in left foot Pain of right foot Unspecified abnormalities of gait and mobility Unspecified hemorrhoids Constipation, unspecified Diverticulitis of intestine, part unspecified, without perforation or abscess with bleeding Pires's esophagus with dysplasia, unspecified Gastro-esophageal reflux disease without esophagitis Rheumatic fever without heart involvement Retinal edema Unspecified macular degeneration Age-related nuclear cataract, unspecified eye Heartburn Other symbolic dysfunctions Localized edema Dry eye syndrome Tinea corporis Vitamin D deficiency, unspecified Overactive bladder Muscle wasting and atrophy, not elsewhere classified, right lower leg Muscle wasting and atrophy, not elsewhere classified, left lower leg Dry mouth Hypokalemia Vitamin B12 deficiency anemia Nausea Irritant contact dermatitis due to detergent History of falling Other chest pain Polyosteoarthritis, unspecified Difficulty in walking, not elsewhere classified Home Medications ?Medication ?Instructions ?Recorded ?Last Taken ?Type acetaminophen 500 mg capsule 500 mg PO TID 07/15/24 Unknown History aspirin 81 mg tablet,delayed 81 mg PO QDAY 07/15/24 Unknown History release cholecalciferol (vitamin D3) 25 25 mcg PO QDAY 07/15/24 Unknown History mcg (1,000 unit) capsule magnesium hydroxide 400 mg/5 mL 30 ml PO QDAY PRN constipation 07/15/24 Unknown History oral suspension (Milk of Magnesia) nitroglycerin 0.4 mg sublingual 0.4 mg sublingual Q5M PRN chest 07/15/24 Unknown History tablet pain pantoprazole 40 mg tablet,delayed 40 mg PO QHS 07/15/24 Unknown History release peg 400-propylene glycol 0.4 %-0.3 1 drp ophthalmic (eye) QDAY PRN 07/15/24 Unknown History % eye drops (Systane (propylene dry eye(s) glycol)) potassium chloride 20 mEq 40 meq PO QDAY 07/15/24 Unknown History tablet,extended release potassium chloride 20 mEq 20 meq PO QPM 07/15/24 Unknown History tablet,extended release(part/cryst) sennosides 8.6 mg-docusate sodium 1 tab-cap PO BID PRN constipation 07/15/24 Unknown History 50 mg capsule (Senna Plus) sertraline 50 mg tablet 150 mg PO QHS 07/15/24 Unknown History vit A 300 mcg-C 200 mg-E 27 1 tab PO QDAY 07/15/24 Unknown History mg-lutein 2 mg and minerals tablet (I-Lary) metoprolol tartrate 25 mg tablet 25 mg PO BID #180 tabs 07/21/24 Unknown Rx pregabalin 100 mg capsule 100 mg PO BID 30 days #60 caps 07/06/25 Unknown Rx aluminum-mag hydroxide-simethicone 5 ml PO Q4H PRN dyspepsia 07/14/25 Unknown History 200 mg-200 mg-20 mg/5 mL oral susp ammonium lactate 12 % lotion 1 applic topical BID 07/14/25 Unknown History furosemide 20 mg tablet 20 mg PO WESA 07/14/25 Unknown History furosemide 40 mg tablet (Lasix) 40 mg PO SUMOTUTHFR 07/14/25 Unknown History lisinopril 5 mg tablet 5 mg PO DAILY 07/14/25 Unknown History loperamide 2 mg capsule 2 mg PO Q6H PRN loose stool 07/14/25 Unknown History melatonin 5 mg tablet 5 mg PO QHS 07/14/25 Unknown History psyllium husk 0.4 gram capsule 0.4 g PO DAILY 07/14/25 Unknown History tolterodine 4 mg capsule,extended 4 mg PO DAILY 07/14/25 Unknown History release 24 hr tramadol 50 mg tablet 50 mg PO Q6H PRN PRN pain 07/14/25 Unknown History Allergy/AdvReac Type Severity Reaction Status Date / Time clindamycin Allergy Unknown Rash/Itchin Verified 07/14/25 14:54 g morphine Allergy Unknown GI Upset, Verified 07/14/25 14:54 Vomiting Penicillins Allergy Unknown Rash Verified 07/14/25 14:54 Ukfoqay-Bmg-Meq Reductase Allergy Unknown See Note Verified 07/14/25 14:54 Inhibitor (Hrfibty-OQM-GsI Reductase Inhibitor) Sulfa (Sulfonamide AdvReac Intermediate thrush Verified 07/14/25 14:54 Antibiotics) oxycodone AdvReac Mild Intolerance Verified 07/14/25 14:54 Family History Father Glaucoma Arthritis Macular degeneration Colon cancer Ischemic heart disease Mother Glaucoma Arthritis Macular degeneration Colon cancer Aunt Macular degeneration Surgical History History of total right knee replacement History of total knee replacement History of total left hip replacement History of total abdominal hysterectomy History of tonsillectomy Hx of removal of ovary History of foot surgery History of appendectomy Social History Smoking Status: Never smoker Electronic Cigarette Use: not used alcohol intake: current alcohol intake frequency: holidays/special occasions only substance use type: does not use ROS Constitutional Constitutional: Denies fatigue, fever(s), poor appetite, weight gain or weight loss Gastrointestinal Gastrointestinal: Denies belching, bloating, change in bowel habits, change in stool character, chewing difficulty, coffee ground emesis, constipation, cramping, diarrhea, dyspepsia, dysphagia, early satiety, excessive flatus, fecal incontinence, heartburn, hematemesis, hematochezia, hemorrhoids, loose stools, melena, nausea, odynophagia, rectal bleeding, tenesmus, vomiting or weight changes Physical Exam Const alert, oriented x3, no apparent distress and healthy appearing General Appearance: cooperative GI normal to inspection, nondistended, normoactive bowel sounds, soft to palpation, non-tender and non-distended Percussion: normal to percussion Rectal Exam: deferred Assessment & Plan Assessment/Plan (1) Pires's esophagus: PLAN: Assessment and Plan Assessment and Plan (1) Pires's esophagus: Status: Chronic Plan: This is an 84 yo female pt here today to be scheduled for an EGD. Pt has a PMHx of Barretts esophagus diagnosed about 10 years ago. Her last EGD was about 5 years ago. SHe will be scheduled for repeat today. I gave her the option of no longer performing procedures due to her age however she would like to have one more done as she does have some heartburn. SHe will continue daily PPI. -EGD -Continue PPI -f/u after procedure ]
[2025-07-15] MEDS: Lactated Ringers 1,000 ML 15 ML IV (11:23)
--- NOTE | 2025-07-15 11:30 | EGD_PTH ---
PATIENT: WANDA LUJAN LOC: EN U#:[id number] AGE/SX: 85/F ROOM: RE07/15/[address]: Dr. Miguel Wooten DO : 1940 BED: DIS: 07/15/2025 SPEC #: [id number] RECD: 07/15/25 13:41 STATUS: GINETTE REHumberto #: [id number] DHEERAJ: 07/15/25 11:[address]: Miguel Wooten DEPT: SURGICAL PATHOLOGY RECD BY: Harvey Lopez ENTERED: 07/15/25 14:24 SP TYPE: EGD BIOPSY KRISTINE DR: Dr. Rodrigue Saldaña MD Tissues: A - Esophagus, NOS Procedures: Surgery Specimen Level IV HEADER OPERATION: EGD and biopsy PRE-OP DIAGNOSIS: Pires's esophagus TISSUE SUBMITTED: A- Distal esophagus biopsy MICROSCOPIC DIAGNOSIS A. Distal esophagus, biopsy: - Pires mucosa negative for dysplasia. MICROSCOPIC DESCRIPTION Slides are reviewed. GROSS DESCRIPTION A. Received in fixative is one container labeled with the patient's name and designated Distal esophagus biopsy. The specimen consists of multiple irregular fragments of dolan tissue that in aggregate measure 1.1 x 0.7 x 0.1 cm. The specimen is totally submitted in one cassette. OR 07/15/2025 CPT:47284
--- NOTE | 2025-07-15 11:43 | PCM.PRE.AN2 ---
ASA Classification* ASA Classification ASA Classification: 3 (Patient has mod pulm HTN and JORGE, ensure patient is ventilating during procedure adequately to avoid worsening pulm HTN. CKD3, HTN, BMI > 40, GERD) Assessment & Plan Anesthesia* Anesthesia Assessment Anesthesia Assessment: Discussed sedation and/or anesthesia options, risks, benefits, and alternatives with patient/parents/legal guardian/POA. Questions invited. The patient/parents/legal guardian/POA seems to understand and agrees to proceed with anesthesia plan. Reviewed the physical assessment, medical history, allergy history and patient home medications list prior to surgery/procedure/anesthetic and documented any changes. Performed airway and anesthesia risk assessments. Anesthesia Type Anesthesia Type: MAC History Source History Obtained from:: Patient and Chart Anesthesia Focused Assessment* Temperature: 97.1 F Pulse Rate: 62 Blood Pressure: 113/90 Respiratory Rate: 16 Pulse Ox: 98 Oxygen Delivery Method: Room Air Airway Assessment Mouth opens: >3 cm Mallampati Score: II Neck Range of motion (ROM): Full ROM Labs Anesthesia Preop lab: CBC WBC, (4.4-11.0) 7.1 K/mm3 06/22/25, 04:30 RBC, (4.2-5.4) 3.98 M/mm3 L 06/22/25, 04:30 Hgb, (12.0-15.0) 11.6 g/dL L 06/22/25, 04:30 Hct, (37-47) 35.3 % L 06/22/25, 04:30 Plt Count, (150-450) 158 K/mm3 06/22/25, 04:30 CHEMISTRY Potassium, (3.3-5.1) 4.2 mmol/L 06/22/25, 04:30 Sodium, (133-145) 139 mmol/L 06/22/25, 04:30 BUN, (4-19) 35 mg/dL H 06/22/25, 04:30 Creatinine, (0.70-1.20) 1.27 mg/dL H 06/22/25, 04:30 Glucose, (70-99) 104 mg/dL H 06/22/25, 04:30 TSH, (0.358-3.740) 0.921 uIU/mL 08/04/24, 05:10 COAG Pre-Assessment Diagnosis/Proposed Procedure Planned Operative Procedure(s): EGD Anesthesia History 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 When Was Last Pacemaker Check QUESTION #4 FULL TEXT: You/Your Family Experience fever (hyperthermia) with Anesthesia Last Oral Intake Last Oral intake: Last Oral Intake NPO since 07:00 07/15/25 11:13 Meds taken in AM with sips of No 07/15/25 11:13 water? 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 Female Yes 07/14/25 14:55 HX of Motion Sickness No 07/14/25 14:55 HX of N/V After Surgery No 07/14/25 14:55 Non-Smoker Yes 07/14/25 14:55 Duration of Surgery greater No 07/14/25 14:55 than 60 minutes Number of Risk Factors 2 07/14/25 14:55 PONV Score Moderate Risk 07/14/25 14:55 Height & Weight Height & Weight: Anesthesia: Height & Weight Height 5 ft 6 in 07/15/25 11:13 Weight: 122.742 kg 07/15/25 11:13 Body Mass Index (BMI) 43.7 07/15/25 11:13 Respiratory Assessment Respiratory Assessment - joint cleaning machine operator: Respiratory Tract Infection Hx - joint cleaning machine operator Hx Respiratory Tract Infection No 07/14/25 14:55 STOP Sleep Apnea STOP Sleep Apnea - joint cleaning machine operator: STOP Sleep Apnea - joint cleaning machine operator Hx Hypertension Yes 07/14/25 14:55 Hx Sleep Apnea No 07/14/25 14:55 CPAP BIPAP Do you snore loudly (louder No 07/14/25 14:55 than talking or can be heard Do you often feel tired/ Yes 07/14/25 14:55 fatigued/ sleepy during daytime? Has anyone observed you stop No 07/14/25 14:55 breathing during sleep? STOP Results Positive 07/14/25 14:55 QUESTION #5 FULL TEXT : Do you snore loudly (louder than talking or can be heard through closed doors)? 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 Specify any problems Hx of Preganancy in last 3 N/A 07/14/25 14:55 Months Nurse Filling Out Transfusion NBUCHER 07/14/25 14:55 & Questions: Date: 07/14/25 07/14/25 14:55 Time: 14:56 07/14/25 14:55 Patient unable to answer at this time (ie. confused, unrespo /Reproduction History /Reproductive History - joint cleaning machine operator: /Reproductive Hx- joint cleaning machine operator Hx Now No 07/14/25 14:55 Gestational Age (in weeks): EDC: Hx Hx Para Hx Section SAB No 07/14/25 14:55 Does the father of the baby or his family experience fever w Father of the baby Malignant Hypertension history comment Active Medications Active Medications: Current Medications Generic Name Dose Route Start Last Admin Trade Name Freq PRN Reason Stop Dose Admin Lactated Ringer's 1,000 mls @ 15 mls/hr 07/15/25 11:00 07/15/25 11:23 IV 15 mls/hr .Q48H SAUD Administration PFSH Medical History Anxiety History of diverticulitis History of IBS GERD (gastroesophageal reflux disease) Wears glasses Arthritis Gastric reflux Non-smoker History of pain when walking History of edema Primary osteoarthritis, left shoulder Left shoulder pain Colonoscopy planned UTI (urinary tract infection) Uterine fibroid Lumbar spinal stenosis Other lack of coordination Muscle weakness (generalized) Need for assistance with personal care Personal history of colonic polyps Family history of malignant neoplasm of digestive organs Depression, unspecified Irritable bowel syndrome with constipation Pure hypercholesterolemia, unspecified Presence of unspecified artificial hip joint Radiculopathy, lumbar region Spondylosis without myelopathy or radiculopathy, lumbar region Spondylosis without myelopathy or radiculopathy, cervical region Other intervertebral disc degeneration, lumbosacral region with discogenic back pain and lower extremity pain Unspecified urinary incontinence Fibromyalgia Rash and other nonspecific skin eruption Pain in left foot Pain of right foot Unspecified abnormalities of gait and mobility Unspecified hemorrhoids Constipation, unspecified Diverticulitis of intestine, part unspecified, without perforation or abscess with bleeding Pires's esophagus with dysplasia, unspecified Gastro-esophageal reflux disease without esophagitis Rheumatic fever without heart involvement Retinal edema Unspecified macular degeneration Age-related nuclear cataract, unspecified eye Heartburn Other symbolic dysfunctions Localized edema Dry eye syndrome Tinea corporis Vitamin D deficiency, unspecified Overactive bladder Muscle wasting and atrophy, not elsewhere classified, right lower leg Muscle wasting and atrophy, not elsewhere classified, left lower leg Dry mouth Hypokalemia Vitamin B12 deficiency anemia Nausea Irritant contact dermatitis due to detergent History of falling Other chest pain Polyosteoarthritis, unspecified Difficulty in walking, not elsewhere classified Home Medications ?Medication ?Instructions ?Recorded ?Last Taken ?Type acetaminophen 500 mg capsule 500 mg PO TID 07/15/24 Unknown History aspirin 81 mg tablet,delayed 81 mg PO QDAY 07/15/24 Unknown History release cholecalciferol (vitamin D3) 25 25 mcg PO QDAY 07/15/24 Unknown History mcg (1,000 unit) capsule magnesium hydroxide 400 mg/5 mL 30 ml PO QDAY PRN constipation 07/15/24 Unknown History oral suspension (Milk of Magnesia) nitroglycerin 0.4 mg sublingual 0.4 mg sublingual Q5M PRN chest 07/15/24 Unknown History tablet pain pantoprazole 40 mg tablet,delayed 40 mg PO QHS 07/15/24 Unknown History release peg 400-propylene glycol 0.4 %-0.3 1 drp ophthalmic (eye) QDAY PRN 07/15/24 Unknown History % eye drops (Systane (propylene dry eye(s) glycol)) potassium chloride 20 mEq 40 meq PO QDAY 07/15/24 Unknown History tablet,extended release potassium chloride 20 mEq 20 meq PO QPM 07/15/24 Unknown History tablet,extended release(part/cryst) sennosides 8.6 mg-docusate sodium 1 tab-cap PO BID PRN constipation 07/15/24 Unknown History 50 mg capsule (Senna Plus) sertraline 50 mg tablet 150 mg PO QHS 07/15/24 Unknown History vit A 300 mcg-C 200 mg-E 27 1 tab PO QDAY 07/15/24 Unknown History mg-lutein 2 mg and minerals tablet (I-Lary) metoprolol tartrate 25 mg tablet 25 mg PO BID #180 tabs 07/21/24 Unknown Rx pregabalin 100 mg capsule 100 mg PO BID 30 days #60 caps 07/06/25 Unknown Rx aluminum-mag hydroxide-simethicone 5 ml PO Q4H PRN dyspepsia 07/14/25 Unknown History 200 mg-200 mg-20 mg/5 mL oral susp ammonium lactate 12 % lotion 1 applic topical BID 07/14/25 Unknown History furosemide 20 mg tablet 20 mg PO WESA 07/14/25 Unknown History furosemide 40 mg tablet (Lasix) 40 mg PO SUMOTUTHFR 07/14/25 Unknown History lisinopril 5 mg tablet 5 mg PO DAILY 07/14/25 Unknown History loperamide 2 mg capsule 2 mg PO Q6H PRN loose stool 07/14/25 Unknown History melatonin 5 mg tablet 5 mg PO QHS 07/14/25 Unknown History psyllium husk 0.4 gram capsule 0.4 g PO DAILY 07/14/25 Unknown History tolterodine 4 mg capsule,extended 4 mg PO DAILY 07/14/25 Unknown History release 24 hr tramadol 50 mg tablet 50 mg PO Q6H PRN PRN pain 07/14/25 Unknown History Allergy/AdvReac Type Severity Reaction Status Date / Time clindamycin Allergy Unknown Rash/Itchin Verified 07/14/25 14:54 g morphine Allergy Unknown GI Upset, Verified 07/14/25 14:54 Vomiting Penicillins Allergy Unknown Rash Verified 07/14/25 14:54 [id number] Reductase Allergy Unknown See Note Verified 07/14/25 14:54 Inhibitor Sulfa (Sulfonamide AdvReac Intermediate thrush Verified 07/14/25 14:54 Antibiotics) oxycodone AdvReac Mild Intolerance Verified 07/14/25 14:54 Family History Father Glaucoma Arthritis Macular degeneration Colon cancer Ischemic heart disease Mother Glaucoma Arthritis Macular degeneration Colon cancer Aunt Macular degeneration Surgical History History of total right knee replacement History of total knee replacement History of total left hip replacement History of total abdominal hysterectomy History of tonsillectomy Hx of removal of ovary History of foot surgery History of appendectomy Social History Smoking Status: Never smoker Electronic Cigarette Use: not used alcohol intake: current alcohol intake frequency: holidays/special occasions only substance use type: does not use Review of Systems (Anesthesia) ROS Narrative System reviewed and no additional complaints, except as documented. Physical Exam Const alert, oriented x3 and average body habitus Resp normal respiratory effort, normal air movement and clear to auscultation bilaterally Cardio regular rate, regular rhythm, no murmurs and diaphoretic
--- NOTE | 2025-07-15 12:41 | OP.EGD_ITS ---
Patient Name: Yaa Ward
--- NOTE | 2025-07-15 12:46 | POSTOP.ANE_ITS ---
Anesthesia: Postop Eval I
--- NOTE | 2025-07-15 12:46 | PCM.POST.ANE ---
Anesthesia: Postop Eval I Current Vital Signs Temperature: 97.1 F Pulse Rate: 58 Blood Pressure: 121/56 Respiratory Rate: 16 Pulse Ox: 98 Oxygen Delivery Method: Room Air Assessment Airway patent: Yes Spontaneous unlabored respirations: Yes Mental status: Awake and Calm nausea: No Vomiting: No Anesthesia Complication: No Fluid Hydration Crystalloid volume administer (ml): 200 Total IV fluid infused: 200 Progress Note Anesthesia document: Postop Eval 1 completed: Yes
--- NOTE | 2025-07-15 14:23 | POSTOPAN2_ITS ---
Anesthesia Postop Eval I Sum
--- NOTE | 2025-07-15 14:23 | PCM.POSTANE2 ---
Anesthesia Postop Eval I Sum Postop Eval Completion status Anesthesia document: Postop Eval 1 completed: Yes Anesthesia Postop Eval I Summary Anesthesia Postop Eval I Summary: Anesthesia Postop Eval I: Assessment Summary Airway patent Yes 07/15/25 12:47 SALES [email or web address] Spontaneous unlabored Yes 07/15/25 12:47 SALES [email or web address] respirations Mental status Awake,Calm 07/15/25 12:47 SALES [email or web address] nausea No 07/15/25 12:47 SALES [employer]ERK [email or web address] Vomiting No 07/15/25 12:47 SALES [employer]ERK [email or web address] Anesthesia Postop Eval I: Fluid Summary Crystalloid volume administer 200 07/15/25 12:47 SALES [email or web address] (ml) Colloids volume administered ( ml) Blood Product volume administered (ml) Total IV fluid infused 200 07/15/25 12:47 SALES [email or web address] Anesthesia Postop Eval I: Summary Notes Anesthesia Complication No 07/15/25 12:47 SALES [email or web address] Anesthesia Complication Comment: Post-operative progress note Anesthesia: Postop Eval II Evaluation Mental status: Awake Pain Level: 0 nausea: No Vomiting: No Complications Anesthesia Complication: No
== END 2025-07-15 13:53 | disposition home or self-care (01) ==
LOC: EN 10:44 → AC 10:45
PROVIDERS: PCP Internal Medicine; Referring Provider Internal Medicine; Visit Provider Internal Medicine Gastroenterology
PROC: 0DJ08ZZ Inspection of Upper Intestinal Tract, Via Natural or Artificial Opening Endoscopic (ICD-10-PCS; CPT 43235; principal; 2025-07-15 11:25)
DX: K22.70 Barrett's esophagus without dysplasia (principal); N18.30 Chronic kidney disease, stage 3 unspecified; K31.7 Polyp of stomach and duodenum; E78.00 Pure hypercholesterolemia, unspecified; Z79.82 Long term (current) use of aspirin; K21.9 Gastro-esophageal reflux disease without esophagitis; Z79.899 Other long term (current) drug therapy; I12.9 Hypertensive chronic kidney disease with stage 1 through stage 4 chronic kidney disease, or unspecified chronic kidney disease
CPT/HCPCS: 43239; 88305

== ENCOUNTER → 2025-07-20 05:00 | Outpatient (REF) | payer MEDICARE, MEDICAID, SELFPAY ==
--- OUTSIDE RECORDS SUMMARY | 2025-07-20 03:58 | XMS RPT_ITS | CCD ---
Author Organization [facility] Care Team Providers Care Lead Teller Name Role Phone Jason Willett Attending Unavailable Reema Cantu Primary Care Unavailable Vinod Fulton MD Unavailable Unavailab Eliseo Cordon MD Unavailable Unavailable Reema Cantu DO Unavailable Unavailable Reema Cantu Unavailable Unavailable Jason Willett MD Unavailable Unavailable Clint Ye MD Unavailable Unavailable Dr. Aman Ragsdale Primary Care Provider Andrew ROOFER HELPER VINYL COATING, ROOFER HELPER VINYL COATING-C Regine Attending Provider Unav lisaable Delisa Estrella DO Primary Care Provider Dr. Aman Ragsdale Primary Care Provider Andrew ROOFER HELPER VINYL COATING, ROOFER HELPER VINYL COATING-C Regine Attending Provider Unav lisaable Dr. Rodrigue [...] Provider Piper FOUNTAIN, Rodrigue Attending Provider Unavaila ble Andrew ROOFER HELPER VINYL COATING-C, Regine Attending Provider [phone] Piper FOUNTAIN, Dr. Husain Primary Care Provider Piper FOUNTAIN, Rodrigue Attending Provider Unavailannabel Saldaña MD, Dr. Husain Referring Provider [phone] Arjun Felton MD Attending Provider [phone] Mario FOUNTAIN, Dr. Jacobs Attending Provider [phone] Piper FOUNTAIN, Dr. Husain Primary Care Provider Piper FOUNTAIN, Rodrigue Attending Provider Unavailannabel Saldaña MD, Rodrigue Referring Provider Unavaila Elvi Siddiqui Attending Provider Tickton ROOFER HELPER VINYL COATING-C, Regine Attending Provider Piper FOUNTAIN, Dr. Husain Primary Care Provider Piper FOUNTAIN, Rodrigue Attending Provider Unavailannabel Saldaña MD, Dr. Husain Primary Care Provider Piper FOUNTAIN, Rodrigue Attending Provider Unavailannabel Saldaña MD, Dr. Husain Primary Care Provider Piper FOUNTAIN, Rodrigue Attending Provider Unavailannabel Saldaña MD, Dr. Husain Primary Care Provider Tickton ROOFER HELPER VINYL COATING-C, Regine Attending Provider [phone] Piper FOUNTAIN, Rodrigue Attending Provider Unavaila ble Tickton ROOFER HELPER VINYL COATING-C, Regine Referring Provider [phone] Nikki FOUNTAIN, Dr. Chirinos Attending Provider Piper FOUNTAIN, Dr. Husain Primary Care Physician Piper FOUNTAIN, Rodrigue Attending Physician Unavail able Tickton ROOFER HELPER VINYL COATING-C, Regine Attending Physician Tickton ROOFER HELPER VINYL COATING-C, Regine Attending Physician Nikki FOUNTAIN, Dr. Chirinos Attending Physician Piper FOUNTAIN, Dr. Husain Primary Care Physician Piper FOUNTAIN, Rodrigue Attending Physician Unavail able Marcelo ROOFER HELPER VINYL COATING, Nikkie Attending Unavailable Oleghe, Efewongbe Primary Care Unavailable Oleghe, Efewongbe Referring Unavailable Oleghe, Efewongbe Attending Unavailable Oleghe, Efewongbe Primary Care Unavailable Oleghe, Efewongbe Primary Care Unavailable Oleghe Tea DONOVANongbe Attending Unavailabl e Bam, Osvaldo Attending Unavailable Bam, Osvaldo Referring Unavailable Oleghe, Efewongbe Primary Care Unavailable Oleghe, Efewongbe Primary Care Unavailable Oleghe Aren DONOVANbe Attending Unavailabl e Oleghe Aren DONOVANbe Attending Unavailabl e Oleghe, Efewongbe Primary Care Unavailable Oleghe Aren DONOVANbe Attending Unavailabl e Oleghe, Efewongbe Primary Care Unavailable Oleghe OLS, Efewongbe Referring Unavailabl e Oleghe Aren DONOVANbe Attending Unavailabl e Oleghe, Efewongbe Primary Care Unavailable Bam, Osvaldo Attending Unavailable Bam, Osvaldo Referring Unavailable Oleghe, Efewongbe Primary Care Unavailable Oleghe Aren DONOVANbe Attending Unavailabl e Oleghe, Efewongbe Primary Care Unavailable Oleghe VENUS Efnereydabe Attending Unavailabl e Oleghe, Efewongbe Primary Care Unavailable Oleghe Aren DONOVANbe Attending Unavailabl e Oleghe, Efewongbe Primary Care Unavailable Tickton Regine DONOVAN Attending Unavailable Tickton Regine DONOVAN Referring Unavailable Oleghe, Efewongbe Primary Care Unavailable Oleghe, Efewongbe Primary Care Unavailable Oleghe VENUS Efjessicaongbe Attending Unavailabl e Oleghe VENUS Efnereydabe Attending Unavailabl e Oleghe, Efewongbe Primary Care Unavailable Oleghe OLS, Efewongbe Attending Unavailabl e Oleghe, Efewongbe Primary Care Unavailable Oleghe OLS Efnereydabe Attending Unavailabl e Oleghe, Efewongbe Primary Care Unavailable Tickton Regine DONOVAN Attending Unavailable Oleghe, Efewongbe Primary Care Unavailable Friend, Miguel Attending Unavailable Oleghe, Efewongbe Referring Unavailable [...] Unavailable Oleghe OLS, Efewongbe Attending Unavailabl e Bam, Osvaldo Attending Unavailable Bam, Osvaldo Referring Unavailable Bam, Osvaldo Consulting Unavailable Oleghe, Efewongbe Primary Care Unavailable Oleghe OLS, Efewongbe Attending Unavailabl e Oleghe, Efewongbe Primary Care Unavailable Tickton ROOFER HELPER VINYL COATINGRegine Attending Unavailable Oleghe, Efewongbe Primary Care Unavailable Tickton Regine MÉNDEZ Attending Unavailable Oleghe, Efewongbe Primary Care Unavailable Oleghe, Efewongbe Primary Care Unavailable Reynaldo Martin Attending Unavailable Tickton ROOFER HELPER VINYL COATINGRegine Attending Unavailable Oleghe, Efewongbe Primary Care Unavailable Elvi Perez Attending Unavailable Oleghe, Efewongbe Referring Unavailable Oleghe, Efewongbe Primary Care Unavailable Oleghe, Efewongbe Referring Unavailable Oleghe, Efewongbe Primary Care Unavailable Arjun Felton Attending Unavailable Bam, Osvaldo Attending Unavailable Oleghe, Efewongbe Referring Unavailable Oleghe, Efewongbe Primary Care Unavailable Tickton ROOFER HELPER VINYL COATINGRegine Attending Unavailable Oleghe, Efewongbe Primary Care Unavailable Friend, Miguel Consulting Unavailable Friend, Miguel Attending Unavailable Oleghe, Efewongbe Referring Unavailable Oleghe, Efewongbe Primary Care Unavailable Oleghe OLS, Efewongbe Attending Unavailabl e Oleghe, Efewongbe Primary Care Unavailable Oleghe OLS, Efewongbe Attending Unavailabl e Oleghe, Efewongbe Primary Care Unavailable Oleghe OLS, Efewongbe Attending Unavailabl e Oleghe OLS, Efewongbe Referring Unavailabl e Oleghe, Efewongbe Primary Care Unavailable Miguel Wooten Attending Unavailable Oleghe, Efewongbe Referring Unavailable Oleghe, [...] Oleghe OLS, Efewongbe Attending Unavailabl e Tickton Regine DONOVAN Attending Unavailable Oleghe, Efewongbe Primary Care Unavailable Oleghe OLS, Efewongbe Attending Unavailabl e Oleghe, Efewongbe Primary Care Unavailable Tickton Regine DONOVAN Attending Unavailable Oleghe, Efewongbe Primary Care Unavailable Allergies Allergy [...] [OXYCODONE-ACETAM INOPHEN] Drug Allergy 01-17-20 16 Intolerance [facility] (20 sources) Clindamycin; Translations: [CLINDAMYCIN] Drug Allergy 01-17-20 12 Rash, Itching [facility] (10 sources) HMG-CoA reductase inhibitor; Translations: [JYDZZTM-FBX-LWU REDUCTASE INHIBITORS] Drug Intolerance 01-23-20 12 Other: See Comments [facility] (20 sources) Morphine; Translations: [MORPHINE] Drug Allergy 06-11-20 12 GI Upset, Vomiting [facility] Work Phone: (10 sources) Penicillins; Translations: [PENICILLINS] Drug Allergy 02-22-20 04 Rash [facility] (10 sources) Sulfonamides (Antibiotic); Translations: [SULFA (SULFONAMIDE ANTIBIOTICS)] Drug Intolerance 02-22-20 04 Other: See Comments [facility] (13 sources) oxyCODONE Drug Allergy 07-21-20 24 Intolerance [facility] (13 sources) Penicillins Allergy to substance 07-21-20 24 Rash [facility] (13 sources) Sulfonamides (Antibiotic) Propensity to adverse reactions 07-21-20 24 thrush [facility] (13 sources) Eragklo-Ogv-Opc Reductase Inhibitor Allergy to substance 07-21-20 See Note [facility] Comment on above: Lethargy, muscle/afua nt pain (1 source) Clindamycin Drug Allergy 07-14-20 25 [facility] Repository (1 source) Morphine Drug Allergy 07-14-20 25 [facility] Repository (1 source) oxyCODONE Drug Allergy 07-14-20 25 [facility] Repository (1 source) Penicillins Drug allergy (disorder) 07-14-20 25 [facility] Rep[facility] (1 source) Sulfonamides (Antibiotic) Drug allergy (disorder) 07-14-20 25 [facility] Repository (1 source) Qigudnz-Dil-Eyj Reductase Inhibitor Drug allergy (disorder) 07-14-20 [facility] Repository Medications Current Medications Medication Drug Class(es) Dates Sig (Normalized) Sig (Original) acetaminophen 500 mg oral capsule (20 sources) Start: 07-15-2024 take 1 capsule by mouth three times daily Start: 05-15-2021 take 2 tablets by [facility] every eight hours as needed acetaminophen (TYLENOL) 325 mg tablet Take 2 tablets by mouth every 8 hours as needed for pain. 30 tablet 05/15/2021 Active Comment on above: Take 2 tablets by mo [facility] every 8 hours as needed for pain. ascorbic acid 200 mg / beta carotene 1000 unt / cuprous oxide 2 mg / dl-alpha tocopheryl acetate 60 unt / lutein 2 mg / sodium selenate 0.055 mg / zinc oxide 40 mg oral tablet (2 sources) Vitamin C Start: 07-15-2024 aspirin 81 mg delayed release oral tablet (16 sources) Platelet Aggregation Inhibitor, Nonsteroidal Anti-inflammatory Drug Start: 09-21-2016 take 1 tablet by mouth once daily cholecalciferol 0.025 mg oral capsule (20 sources) Vitamin D Start: 07-15-2024 take 1 capsule by mouth once daily Cholecalciferol, Vitamin D3, (VITAMIN D) 1,000 unit Tab Take 2,000 Units by mouth once daily. Active Comment on above: Take 2,000 Units by mouth once daily. ciprofloxacin 250 mg oral tablet (3 sources) Quinolone Antimicrobial Start: 03-11-2025 take 1 tablet by mouth twice daily docusate sodium 100 mg oral capsule (20 sources) Start: 03-25-2018 take 1 capsule by mouth twice daily Start: 09-21-2016 take 1 capsule by [facility] once daily as needed Stool Softener 100 MG Oral Capsule TAKE 1 CAPSULE Daily prn Refills: 0 Start : 21-Sep-2016 Active Comment on above: Take 1 capsule by [facility] twice daily. docusate sodium 50 mg / sennosides, pen[facility] 8.6 mg oral capsule (13 sources) Start: 07-15-2024 fenofibrate 67 mg oral capsu le (17 sources) Peroxisome Proliferator Receptor alpha Agonist Start: 07-15-2024 take 1 capsule by [facility] once daily at bedtime Fenofibrate 150 mg cap Take 150 mg by mo [facility] daily at bedtime. Active furosemide 40 mg oral tablet (20 sources) Loop Diuretic Start: 07-21-2024 take 1 tablet by [facility] once daily Start: 07-15-2024 End: 07-21-2024 take 1 tablet [...] Take 25 mg by mouth once daily. magnesium hydroxide 80 mg/ml oral suspension (17 sources) Start: 07-15-2024 take 1 mL by mouth once daily as needed Start: 07-15-2024 take 1 mL by mouth o nce daily as needed Magnesium Hydroxide (Milk Of [...] take 1 tablet by mouth twice daily Start: 01-27-2024 take 1 tablet by [facility] [...] [facility] th once daily. nitroglycerin 0.4 mg subling ual tablet (15 sources) Nitrate Vasodilator Start: 07-15-2024 Start: 03-18-2024 nitroglycerin sublingual (NITROQUICK) 0.4 mg SL tablet 03/18/2024 Active pantoprazole 40 mg delayed release oral tablet (20 sources) Proton Pump Inhibitor Start: 07-15-2024 take 1 tablet by mouth at bedtime Start: 03-01-2016 End: 04-11-2021 take 1 tablet [...] / propylene glycol 3 mg/ml ophthalmic solution (13 sources) Start: 07-15-20 potassium chloride 20 meq extended release oral tablet (20 sources) Start: 07-15-20 take 2 tablets by mouth once daily Start: 07-15-2024 take 1 tablet by [facility] once daily in the evening Start: 01-01-2013 End: 04-24-2024 take 1 tablet by mouth twice daily potassium chloride (KLOR-CON 10) 10 mEq tablet Indications: Essential hypertension Take 1 tablet by mouth twice daily. 180 tablet 2 07/22/2020 04/24/2024 Discontinued take 2 tablets by mo [facility] once daily potassium chloride ER (KLOR-CON) [...] 100 mg oral capsule (20 sources) Start: 05-07-20 End: 05-22-20 take 1 capsule by mouth twice daily Start: 04-06-2025 End: 05-06-2025 take 1 capsule by mouth twice daily Pregabalin 100 mg capsule Discontinued 100 mg PO TWICE A DAY 60 30 0 April 06, 2025 12:00am May 05, 2025 12:00am May 06, 2025 12:06am Start: 04-06-2025 End: 04-20-2025 take 1 capsule by mouth once daily Pregabalin 50 mg capsule Discontinued 50 mg PO daily 14 14 0 April 06, 2025 12:00am April 19, 2025 12:00am April 20, 2025 12:07am Mid-day for 14 days. Start: 11-20-2023 End: 05-07-2025 take 1 capsule by mouth three times daily Pregabalin 100 mg capsule Discontinued 100 mg PO THREE TIMES A DAY 90 0 March 16, 2025 1:11pm May 07, 2025 12:28pm Comment on above: Take 100 mg by mouth three times a day. proparacaine hydrochloride 5 mg/ml ophthalmic solution (1 source) Local Anesthetic Start: 08-19-2024 End: 08-20-2024 proparacaine 0.5 % 1 Drop (ALCAINE) propylene glycol/peg 400/PF (SYSTANE, PF, OPHTHALMIC) (4 sources) propylene glycol /peg 400/PF (SYSTANE, PF, OPHTHALMIC) Use in eyes. Active propylene glycol /peg 400/PF (SYSTANE, PF, OPHTHALMIC) Use in eyes. 0 Active sennosides (SENNA ORAL) (4 sources) sennosides (JILL A ORAL) Take by mouth. Active sennosides (JILL A ORAL) Take by mouth. 0 Active sertraline 50 mg oral tablet (20 sources) Serotonin Reuptake Inhibitor Start: 07-15-2024 Start: 02-27-2024 sertraline (ZO LOFT) 50 mg tablet 02/27/2024 Active Start: 01-10-2017 End: 04-24-2024 take 1 tablet by mouth once daily sertraline (ZOLOFT) 100 mg tablet Indications: Anxiety and depression Take 1 tablet by mouth once daily. 90 tablet 2 07/22/2020 04/24/2024 Discontinued (Discontinued by Patient) Comment on above: Take 1 tablet by [facility] once daily. triamcinolone acetonide 1 mg /ml topical cream (20 sources) Corticosteroid Start: 07-15-2024 Start: 03-03-2024 End: 04-24-2024 triamcinolone acetonide (DENZEL ALOG) 0.1 % cream Apply to affected area. 0 03/03/2024 04/24/2024 Discontinued (Discontinued by Patient) tropicamide 10 mg/ml ophthalmic solution (1 source) Anticholinergic Start: 08-19-2024 End: 08-20-2024 tropicamide 1 % 1 Drop (MYDRIACYL) Vibegron (13 sources) Start: 07-15-2024 take 1 tablet by mouth once daily Start: 07-15-2024 take 1 tablet by [facility] once daily Vibegron (Gemtesa) 75 mg tablet [...] 1 tablet by [facility] once daily. Vit A,C And N-Azujws-Mnwvffdt (I-Lary) 300 mcg-200 mg-27 mg-2 mg tablet (11 sources) Start: 07-15-2024 Vit A,C And O-Uxbbut-Zeghular (I-Lary) 300 mcg-200 mg-27 mg-2 mg tablet Active 1 {tbl} PO daily July 15, 2024 1:00am administer after a meal vit C,C-Vr-ajqxf-lutein-ze axan (PRESERVISION AREDS-2) 250-90-40-1 mg (7 sources) vit C,Y-Sa-zzdcy-lutein-zeaxa n (PRESERVISION AREDS-2) 250-90-40-1 mg Take by [...] Comment on above: [facility] Fish Oil 1200 MG [...] on above: Take 1 capsule by mo [facility] at bedtime as needed for up [...] 1 application to affected area twice daily. Elkins-3 Fatty Acids-Vitamin E (FISH OIL) 1,000 mg cap (8 sources) End: 4 take 1 capsule by mouth once daily Elkins-3 Fatty Acids-Vitamin E (FISH OIL) 1,000 mg cap Take 1 capsule by mouth once daily. 0 04/24/2024 Discontinued (Discontinued by Patient) take 1 capsule by mouth once sylvain ly Elkins-3 Fatty Acids-Vitamin E (FISH OIL) 1,000 mg cap Take 1 capsule by mouth once daily. 0 Active Comment on above: Take 1 capsule by mo [facility] once daily. PreserVision AREDS 2 Oral Capsule (1 source) PreserVision ARE DS 2 Oral Capsule TAKE DIRECTED. Refills: 0 Active traMADol hydrochloride 50 mg oral tablet (3 sources) Opioid Agonist Start: 5 End: 5 take [...] Comment on above: Take 1 tablet by [facility] twice daily. 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] 07-15-2024 Episodic Biliary tract disease (1 source) Gallbladder pain; Translations: [Calculus of gallbladder without mention of cholecystitis, without mention of obstruction] Episodic Cataract (13 sources) Nuclear senile cataract; Translations: [Age-related nuclear cataract, unspecified eye] Onset: 3 11-15-2012 Chronic Coronary atherosclerosis and other heart disease (17 sources) Coronary arteriosclerosis; Translations: [Atherosclerotic heart disease of [place] coronary artery without angina pectoris] Onset: 2 Resolved: 1 02-17-2021 Chronic Disorders of lipid metabolism (20 sources) Hyperlipidemia; Translations: [Other and unspecified hyperlipidemia] Onset: 2 Resolved: 1 01-17-2012 Chronic Diverticulosis and diverticulitis (20 sources) Diverticulitis; Translations: [Diverticulitis of intestine, part [...] unspecified] Onset: 5 Resolved: 1 11-25-2014 Chronic Nutritional deficiencies (2 sources) Vitamin D deficiency; [...] 8 02-08-2018 Episodic Other connective tissue disease (13 sources) Muscle weakness; Translations: [Muscle weakness (generalized)] 07-15-2024 Episodic Other diseases of bladder and urethra (1 source) Overactive bladder; Translations: [Overactive bladder] Onset: Chronic Other gastrointestinal disorders (9 sources) 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; Translations: [Irritable bowel syndrome with constipation] Onset: 7 01-01-2017 Chronic Other gastrointestinal disorders (1 source) Constipation; Translations: [Constipation, unspecified] 04-24-2024 Episodic Other gastrointestinal disorders (13 sources) Oropharyngeal dysphagia; Translations: [Dysphagia, oropharyngeal phase] 07-15-2024 Episodic Other hereditary and degenerative nervous system conditions (13 sources) Idiopathic peripheral autonomic neuropathy; Translations: [Other idiopathic peripheral autonomic neuropathy] 07-15-2024 Chronic Other lower respiratory disease (13 sources) Dyspnea on exertion; Translations: [Other forms of dyspnea] 07-15-2024 Episodic Other lower respiratory disease (13 sources) Dyspnea; Translations: [Shortness of breath] 07-15-2024 Episodic Other nervous system disorders (19 sources) Difficulty walking; Translations: [Difficulty in walking, [...] Chronic Other nutritional; endocrine; and metabolic disorders (13 sources) Obesity caused by energy imbalance; Translations: [...] [Localized edema] 03-16-2024 Episodic Residual codes; unclassified (13 sources) Bilateral lower limb edema; Translations: [Localized edema] 07-21-2024 Episodic Retinal detachments; defects; vascular occlusion; and [...] Other Problems Problem Classification Problem Date Documented Da te Episodic/Chronic Allergic reactions (2 sources) Irritant contact dermatitis due to detergents; Translations: [Irritant contact dermatitis due to detergents] Onset: 11-18-2024 Episodic Hemorrhoids (9 sources) Hemorrhoids; Translations: [Unspecified hemorrhoids] Onset: 02-17-2021 02-17-2021 Episodic Malaise and fatigue (8 sources) Fatigue; Translations: [Other fatigue] Onset: 05-15-2021 05-17-2021 Episodic Nausea and vomiting (1 source) Nausea; Translations: [Nausea] Onset: 10-20-2024 Episodic Nonspecific chest pain (20 sources) Chest pain; Translations: [Chest pain, unspecified] Onset: 08-29-2024 07-15-2024 Episodic Other connective tissue disease (9 sources) Pain in both feet; Translations: [Pain in right foot] Onset: 02-17-2021 02-17-2021 Episodic Other connective tissue disease (4 sources) Finding of lower limb; Translations: [Other symptoms and signs involving the musculoskeletal system] Onset: 01-16-2005 Resolved: 02-17-2021 02-17-2021 Episodic Other connective tissue disease (1 source) Muscle weakness (generalized); Translations: [Muscle weakness (generalized)] Onset: 08-30-2024 Episodic Other gastrointestinal disorders (1 source) Diarrhea, unspecified; Translations: [Diarrhea, unspecified] Onset: 03-02-2025 Episodic Other gastrointestinal disorders (2 sources) Dysphagia, oropharyngeal phase; Translations: [Dysphagia, oropharyngeal phase] Onset: 11-18-2024 Episodic Other injuries and conditions due to [...] 02-17-2021 02-17-2021 Episodic Other non-traumatic joint disorders (19 sources) Pain in left shoulder; Translations: [Left [...] 02-17-2021 Episodic Residual codes; unclassified (1 source) Insomnia, unspecified; Translations: [Insomnia, unspecified] Onset: 03-02-2025 Episodic Residual codes; unclassified (1 source) Asymptomatic menopausal state; Translations: [Asymptomatic menopausal state] Onset: 08-29-2024 Episodic Residual codes; unclassified (1 source) Localized edema; Translations: [Localized edema] Onset: 08-30-2024 Episodic Skin and subcutaneous tissue infections (3 sources) Cellulitis of right upper limb; Translations: [Cellulitis of right lower limb] Onset: 10-10-2024 Episodic Unclassified (13 sources) Colonoscopy planned Resolved: 09-10-2011 07-15-2024 NEGATED: Highlighted row has not occurred!Residual codes; unclassified (1 source) Disease Episodic Results Test Name Value Interpretation Reference Range Facility EGD Reporton 07-15-2025 EGD Report [facility] Medical Records Department [address] [place] [address] EGD Report MR#: [id number] Acct: [id number] Name: YAA WARD Rep #: [id number] : [id number] 85 From: Miguel Wooten DO PCP: Dr. Rodrigue Saldaña MD Status:[facility] Patient Name: Yaa Ward Procedure Date: 07/15/2025 12:13 PM Date of : 1940 Age: 85 Procedure: Upper GI endoscopy Indications: Garcia's esophagus, Follow-up of Garcia's esophagus Providers: Miguel Wooten DO Medicines: Monitored Anesthesia Care Patient Profile: This is an 85 year old female. Refer to note in patient chart for documentation of history and physical. Patient has symptoms of chronic heartburn. Complications: No immediate complications. Procedure: Pre-Anesthesia Assessment: - Prior to the procedure, a History and Physical was performed, and patient medications and allergies were reviewed. The patient is competent. The risks and benefits of the procedure and the sedation options and risks were discussed with the patient. All questions were answered and informed consent was obtained. Patient identification and proposed procedure were verified by the physician in the pre-procedure area. Mental Status Examination: alert and oriented. Airway Examination: normal oropharyngeal airway and neck mobility. Respiratory Examination: clear to auscultation. CV Examination: normal. Prophylactic Antibiotics: The patient does not require prophylactic antibiotics. Prior Anticoagulants: The patient has taken no anticoagulant or antiplatelet agents except for NSAID medication. ASA Grade Assessment: II - A patient with mild systemic disease. After reviewing the risks and benefits, the patient was deemed in satisfactory condition to undergo the procedure. The anesthesia plan was to use monitored anesthesia care (MAC). Immediately prior to administration of medications, the patient was re-assessed for adequacy to receive sedatives. The heart rate, respiratory rate, oxygen saturations, blood pressure, adequacy of pulmonary ventilation, and response to care were monitored throughout the procedure. The physical status of the patient was re-assessed after the procedure. After obtaining informed consent, the endoscope was passed under direct vision. Throughout the procedure, the patient's blood pressure, pulse, and oxygen saturations were monitored continuously. The gastroscope was introduced through the mouth, and advanced to the second part of duodenum. The upper GI endoscopy was accomplished without difficulty. The patient tolerated the procedure well. 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 The maximum longitudinal extent of these mucosal changes was 2 cm in length. Mucosa was biopsied with a cold forceps for histology in a targeted manner at intervals of 1 cm in the lower third of the esophagus. One specimen bottle was sent to pathology. Verification of patient identification for the specimen was done. Estimated blood loss was minimal. Multiple 5 mm hyperplastic polyps with no bleeding and no stigmata of recent bleeding were found in the entire examined stomach. No gross lesions were noted in the entire examined duodenum. Impression: - Esophageal mucosal changes secondary to established short-segment Garcai's disease. Biopsied. - Multiple gastric polyps. - No gross lesions in the entire examined duodenum. Recommendation: - Discharge patient to home. - Resume previous diet. - Continue present medications. - Await pathology results. Procedure Code(s): --- Professional --- 34302, Esophagogastroduodenosc opy, flexible, transoral; with biopsy, single or multiple CPT copyright 2021 [employer]. All rights reserved. The codes documented in this report are preliminary and upon instructional technologist review may be revised to meet current compliance requirements. Miguel Wooten DO 07/15/2025 12:40:45 PM This report has been signed electronically. Number of Addenda: 0 Note Initiated On: 07/15/2025 12:13 PM 07/15/25 1241 Date Miguel Wooten DO Cosigner Signature: Date (if indicated) CC: Dr. Rodrigue Saldaña MD; Miguel Wooten DO Date Dictated: 07/15/25 1213 Date Transcribed: Pattern Grader: EB Signed [facility] MR/OP.PROVATojose 07-15-2025 MR/OP.[facility] Medical Records Department [address] [place] [id number] Provation Physician Letter MR#: [id number] Acct: [id number] Name: YAA WARD Rep #: [id number] : 1940 85 From: Miguel Wooten DO PCP: Dr. Rodrigue Saldaña MD Status:REG [facility] 07/15/2025 Rodrigue Saldaña MD [address] [place] [address] [place] [address] Re : Upper GI endoscopy procedure for Yaa Ward Dear Dr. Saldaña This procedure was performed on Tuesday, July 15, 2025. 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 Biopsied. - Multiple gastric polyps. - No gross lesions in the entire examined duodenum. Recommendations : - Discharge patient to home. - Resume previous diet. - Continue present medications. - Await pathology results. My findings are described in the full procedure note, which is enclosed. If I can be of further assistance, please feel free to contact me at . Sincerely, Miguel Wooten DO 07/15/2025 12:40:45 PM This report has been signed electronically. 07/15/25 1241 Date Miguel Browerigner Signature: Date (if indicated) CC: Dr. Rodrigue Saldaña MD; Miguel Wooten DO Date Dictated: 07/15/25 1213 Date Transcribed: Pattern Grader: EB Signed [facility] MR/POSTOP.[facility] 07-15-2025 MR/POSTOP.[facility] Medical Records Department [address] [place] [address] Anesthesia Postop Eval I 07/15/25 1246 MR#: [id number] Acct: [id number] Name: YAA WARD Rep #: [id number] : 1940 85 From: Cassidy Card CRNA PCP: Dr. Rodrigue Saldaña MD Status:REG SDC Y Race: C Location: [place] [address] Anesthesia: Postop Eval I Current Vital Signs Temperature: 97.1 F Pulse Rate: 58 Blood Pressure: 121/56 Respiratory Rate: 16 Pulse Ox: 98 Oxygen Delivery Method: Room Air Assessment Airway patent: Yes Spontaneous unlabored respirations: Yes Mental status: Awake and Calm nausea: No Vomiting: No Anesthesia Complication: No Fluid Hydration Crystalloid volume administer (ml): 200 Total IV fluid infused: 200 Progress Note Anesthesia document: Postop Eval 1 completed: Yes 07/15/25 1247 Date Cassidy Card INSTRUMENT TECHNICIAN HELPER Cosigner Signature: Date CC: Signed Normal [facility] MR/USUGARZU3pz 07-15-2025 MR/POSTOPAN2 [facility] Medical Records Department [address] [place] [address] Anesthesia Postop Eval II 07/15/25 1423 MR#: [id number] Acct: [id number] Name: YAA WARD Rep #: [id number] : 1940 85 From: Ezekiel Marcus MD PCP: Dr. Rodrigue Saldaña MD Status:[facility] Y Race: C Location: [place] Anesthesia Postop Eval I Sum Postop Eval Completion status Anesthesia document: Postop Eval 1 completed: Yes Anesthesia Postop Eval I Summary Anesthesia Postop Eval I Summary: Anesthesia Postop Eval I: Assessment Summary Airway patent Yes 07/15/25 12:47 INSTRUMENT TECHNICIAN HELPER.GDOTT Spontaneous unlabored Yes 07/15/25 12:47 INSTRUMENT TECHNICIAN HELPER.GDOTT respirations Mental status Awake,Calm 07/15/25 12:47 INSTRUMENT TECHNICIAN HELPER.GDOTT nausea No 07/15/25 12:47 INSTRUMENT TECHNICIAN HELPER.GDOTT Vomiting No 07/15/25 12:47 INSTRUMENT TECHNICIAN HELPER.GDOTT Anesthesia Postop Eval I: Fluid Summary Crystalloid volume administer 200 07/15/25 12:47 INSTRUMENT TECHNICIAN HELPER.GDOTT (ml) Colloids volume administered ( ml) Blood Product volume administered (ml) Total IV fluid infused 200 07/15/25 12:47 INSTRUMENT TECHNICIAN HELPER.GDOTT Anesthesia Postop Eval I: Summary Notes Anesthesia Complication No 07/15/25 12:47 INSTRUMENT TECHNICIAN HELPER.GDOTT Anesthesia Complication Comment: Post-operative progress note Anesthesia: Postop Eval II Evaluation Mental status: Awake Pain Level: 0 nausea: No Vomiting: No Complications Anesthesia Complication: No 07/15/25 142 Date Ezekiel Beckford Signature: Date CC: Signed Normal [facility] MR/PATJessica 07-14-2025 MR/PAT.[facility] Medical Records Department [address] [place] [address] PAT - Anesthesia 07/14/25 1533 MR#: [id number] Acct: [id number] Name: YAA WARD Rep #: [id number] : 1940 85 From: Amilcar Red MD PCP: Dr. Rodrigue Saldaña MD Status:PRE [facility] Y Race: C Location: [place] Pre-Assessment Diagnosis/Proposed Procedure Planned Operative Procedure(s): EGD Anesthesia History Anesthesia History - psychologist research assistant: Anesthesia History - psychologist research assistant Hx Hospitalization No 07/14/25 14:55 Any Problems With Anesthesia No 07/14/25 14:55 Cholinesterase deficiency No 07/14/25 14:55 You/Your Family Experience No 07/14/25 14:55 fever (hyperthermia) with Relationship Recent Exposure to Contagious Disease Does patient have nerve No 07/14/25 14:55 stimulator Patient instructed to have device shut off --Does patient have Pacemaker or ICD? When Was Last Pacemaker Check QUESTION #4 FULL TEXT: You/Your Family Experience fever (hyperthermia) with Anesthesia Last Oral Intake Last Oral intake: Last Oral Intake NPO since Meds taken in AM with sips of water? Meds patient instructed to take am of surgery PONV PONV - psychologist research assistant: PONV - psychologist research assistant Female Yes 07/14/25 14:55 HX of Motion Sickness No 07/14/25 14:55 HX of N/V After Surgery No 07/14/25 14:55 Non-Smoker Yes 07/14/25 14:55 Duration of Surgery greater No 07/14/25 14:55 than 60 minutes Number of Risk Factors 2 07/14/25 14:55 PONV Score Moderate Risk 07/14/25 14:55 Height Weight Height Weight: Anesthesia: Height Weight Height 5 ft 3 in 06/09/25 12:48 Respiratory Assessment Respiratory Assessment - psychologist research assistant: Respiratory Tract Infection Hx - psychologist research assistant Hx Respiratory Tract Infection No 07/14/25 14:55 STOP Sleep Apnea STOP Sleep Apnea - psychologist research assistant: STOP Sleep Apnea - psychologist research assistant Hx Hypertension Yes 07/14/25 14:55 Hx Sleep Apnea No 07/14/25 14:55 CPAP BIPAP Do you snore loudly (louder No 07/14/25 14:55 than talking or can be heard Do you often feel tired/ Yes 07/14/25 14:55 fatigued/ sleepy during daytime? Has anyone observed you stop No 07/14/25 14:55 breathing during sleep? STOP Results Positive 07/14/25 14:55 QUESTION #5 FULL TEXT : Do you snore loudly (louder than talking or can be heard through closed doors)? Tobacco Use History Tobacco Use History - psychologist research assistant: Tobacco Use History - psychologist research assistant Tobacco Use Smoking Status Never smoker 07/14/25 14:55 Hx Tobacco Use No 07/14/25 14:55 Years Smoking Packs Smoked per Day Smoking Cessation Date was within the last 15 years Hx Smoking Cessation Date Hx Smoking Cessation Counseling Hematologic Medial History Hematologic Hx - psychologist research assistant: Hematologic Medical Hx - dope mixer Hx of Blood Transfusion No 07/14/25 14:55 Hx of Transfusion in last 3 No 07/14/25 14:55 Months Date of Last Transfusion (if within last 3 months) Ever experience any problems No 07/14/25 14:55 with transfusion(s)? Specify any problems Hx of Preganancy in last 3 N/A 07/14/25 14:55 Months Nurse Filling Out Transfusion NBUCHER 07/14/25 14:55 Questions: Date: 07/14/25 07/14/25 14:55 Time: 14:56 07/14/25 14:55 Patient unable to answer at this time (ie. confused, unrespo /Reproduction History /Reproductive History - psychologist research assistant: /Reproductive Hx- psychologist research assistant Hx Now No 07/14/25 14:55 Gestational Age (in weeks): EDC: Hx Hx Para Hx Section SAB No 07/14/25 14:55 PFSH Medical History (Updated 07/14/25 @ 15:02 by Giovana Major) Anxiety History of diverticulitis History of IBS GERD (gastroesophageal reflux disease) Wears glasses Arthritis Gastric reflux Non-smoker History of pain when walking History of edema Primary osteoarthritis, left shoulder Left shoulder pain [...] lumbosacral region with discogenic back pain and lo (more content not included)... Normal [facility] Absolute lymphocyte countOrd ered By: Rodrigue Saldaña on 05-25-2025 Lymphocytes Auto (Unsp spec) [#/Vol] 1.75 10*3/uL 0.83-4.51 [facility] Absolute neutrophil countOrd ered By: jessicanew egyptmaryann Saldaña on 05-25-2025 Neutrophils (Bld) [#/Vol] 4.6 10*3/uL 2.0-7.7 [facility] Anion gap in Serum or Plasma Ordered By: Rodrigue Saldaña on 05-25-2025 Anion gap [Moles/Vol] 14 mmol/L 5-15 [facility] Automated lymphocyte count a s percentage of total leukocytesOrdered By: Rodrigue Saldaña on 05-25-2025 Lymphocytes/100 WBC Auto (Unsp spec) 23.3 % 19-41 [facility] BUN/creatinine ratioOrdered By: jessicanew egyptmaryann Saldaña on 05-25-2025 Urea nitrogen/Creatinine [Mass ratio] 29.0 mg/mg High 10-20 [facility] Basophil percentageOrdered B y: Rodrigue Saldaña on 05-25-2025 Basophils/100 WBC (Bld) 0.7 % 0-1 [facility] Carbon dioxide, total [Moles /volume] in Central venous bloodOrdered By: Rodrigue Saldaña on 05-25-2025 CO2 [Moles/Vol] 21.8 mmol/L 21.0-32.0 [facility] Chloride assayOrdered By: Dwayne Saldaña on 05-25-2025 Chloride [Moles/Vol] 105 mmol/L 98-108 [facility] Eosinophil percentageOrdered By: naveed Saldaña 05-25-2025 Eosinophils/100 WBC (Bld) 6.0 % High 0-5 [facility] Erythrocyte distribution wid th ratioOrdered By: Rodrigue Saldaña on 05-25-2025 Erythrocyte distribution width (RBC) [Ratio] 16.1 % High 11.6-14.6 [facility] Erythrocyte distribution wid th standard deviationOrdered By: jessicanew egyptmaryann Saldaña on 05-25-2025 Erythrocyte distribution width (RBC) [Ratio] 52.0 fl High 35.1-43.9 [facility] Glomerular filtration rate ( GFR) estimation/1.73 sq m using serum, plasma, or whole bOrdered By: Rodrigue Leifkalina on 05-25-2025 GFR/1.73 sq M.predicted among non-blacks MDRD (S/P/Bld) [Vol rate/Area] 39 mL/min/{1.73_m2} Low >60 [facility] Comment on above: mL/min/1.73m2 CKD-EP I Creatinine Equation (2020) Hematocrit Auto (Bld) [Volum e fraction]Ordered By: Rodrigue Leifjaspreetlexie 05-25-2025 Hematocrit (Bld) [Volume fraction] 35.2 % Low 37-47 [facility] Hemoglobin measurementOrdere d By: Rodrigue Leifjaspreetlexie on 05-25-2025 Hemoglobin (Bld) [Mass/Vol] 11.6 g/dL Low 12.0-15.0 [facility] Immature granulocytes/100 WB C Auto (Bld)Ordered By: Arenmaryann Yadavjaspreetlexie 05-25-2025 Immature granulocytes/100 WBC (Bld) 0.500 % 0.0-0.9 [facility] Comment on above: IG% - Immature Granu locytes (promyelocytes, myelocytes and metamyelocytes) > 1% indicates that a LEFT SHIFT is Present. MCV (mean corpuscular volume ) determinationOrdered By: Rodrigue Saldaña on 05-25-2025 MCV (RBC) [Entitic vol] 88.9 fL 81-99 [facility] Mean corpuscular hemoglobin (MCH) determinationOrdered By: Rodrigue Saldaña on 05-25-2025 MCH (RBC) [Entitic mass] 29.3 pg 27.0-32.0 [facility] Mean corpuscular hemoglobin concentration (MCHC) determinationOrdered By: Rodrigue Saldaña on 05-25-2025 MCHC (RBC) [Mass/Vol] 33.0 g/dL 32-36 [facility] Mean platelet volume determi nationOrdered By: Rodrigue Saldaña on 05-25-2025 Platelet mean volume (Bld) [Entitic vol] 9.3 fL 6.2-12.0 [facility] Monocyte percentageOrdered B y: Rodrigue Sadlaña on 05-25-2025 Monocytes/100 WBC (Bld) 7.8 % 0-10 [facility] Neutrophil percentageOrdered By: Rodrigue Saldaña on 05-25-2025 Neutrophils/100 WBC (Bld) 61.7 % 47-70 [facility] Nucleated red blood cell per centageOrdered By: Rodrigue Saldaña on 05-25-2025 Nucleated RBC/100 WBC (Bld) [Ratio] 0 % 0-5 [facility] Platelet countOrdered By: Dwayne Saldaña on 05-25-2025 Platelets (Bld) [#/Vol] 182 10*3/uL 150-450 [facility] Potassium measurement (mass/ volume)Ordered By: Rodrigue Saldaña on 05-25-2025 Potassium (Unsp spec) [Mass/Vol] 4.0 mmol/L 3.3-5.1 [facility] RBC Auto (Bld) [#/Vol]Ordere d By: Rodrigue Saldaña on 05-25-2025 RBC (Bld) [#/Vol] 3.96 10*6/uL Low 4.2-5.4 [facility] Serum creatinine measurement (mass/volume)Ordered By: Rodrigue Saldaña on 05-25-2025 Creatinine [Mass/Vol] 1.33 mg/dL High 0.70-1.20 [facility] Serum glucose measurement (m ass/volume)Ordered By: Rodrigue Saldaña on 05-25-2025 Glucose [Mass/Vol] 104 mg/dL High 70-99 [facility] Serum or plasma calcium murali urement (mass/volume)Ordered By: Arenmaryann Yadavjaspreetlexie on 05-25-2025 Calcium [Mass/Vol] 9.1 mg/dL 7.6-11.0 [facility] Serum or plasma urea nitroge n measurement (mass/volume)Ordered By: Rodrigue Saldaña on 05-25-2025 Urea nitrogen [Mass/Vol] 39 mg/dL High 4-19 [facility] Sodium levelOrdered By: Tea Roylexie on 05-25-2025 Sodium [Moles/Vol] 141 mmol/L 133-145 [facility] White blood cell (WBC) count Ordered By: Dwaynejessicasalmaryann Yadavjaspreetlexie on 05-25-2025 WBC (Bld) [#/Vol] 7.5 10*3/uL 4.4-11.0 [facility] Absolute lymphocyte countOrd ered By: Rodrigue Saldaña on 04-27-2025 Lymphocytes Auto (Unsp spec) [#/Vol] 1.87 10*3/uL 0.83-4.51 [facility] Absolute neutrophil countOrd ered By: Arenmaryann Yadavjaspreetlexie on 04-27-2025 Neutrophils (Bld) [#/Vol] 4.4 10*3/uL 2.0-7.7 [facility] Anion gap in Serum or Plasma Ordered By: Rodrigue Saldaña on 04-27-2025 Anion gap [Moles/Vol] 14 mmol/L -15 [facility] Automated lymphocyte count a s percentage of total leukocytesOrdered By: Arenmaryann Yadavjaspreetlexie on 04-27-2025 Lymphocytes/100 WBC Auto (Unsp spec) 24.9 % 19-41 [facility] BUN/creatinine ratioOrdered By: Arenmaryann Yadavjaspreetlexie on 04-27-2025 Urea nitrogen/Creatinine [Mass ratio] 23.6 mg/mg High 10-20 [facility] Basophil percentageOrdered B y: Teasalmaryann Yadavjaspreetlexie on 04-27-2025 Basophils/100 WBC (Bld) 0.8 % 0-1 [facility] Carbon dioxide, total [Moles /volume] in Central venous bloodOrdered By: Dwaynenaveed Yadavjaspreetlexie on 04-27-2025 CO2 [Moles/Vol] 23.6 mmol/L 21.0-32.0 [facility] Chloride assayOrdered By: Dwayne nereydamaryann Saldaña on 04-27-2025 Chloride [Moles/Vol] 103 mmol/L 98-108 [facility] Eosinophil percentageOrdered By: Dwaynejessicasalmaryann Yadavjaspreetlexie on 04-27-2025 Eosinophils/100 WBC (Bld) 7.2 % High 0-5 [facility] Erythrocyte distribution wid th ratioOrdered By: jessicanew egyptmaryann Yadavjaspreetlexie on 04-27-2025 Erythrocyte distribution width (RBC) [Ratio] 16.1 % High 11.6-14.6 [facility] Erythrocyte distribution wid th standard deviationOrdered By: jessicanew egyptmaryann Leifjaspreetlexie on 04-27-2025 Erythrocyte distribution width (RBC) [Ratio] 52.7 fl High 35.1-43.9 [facility] Glomerular filtration rate ( GFR) estimation/1.73 sq m using serum, plasma, or whole bOrdered By: Dwaynenaveed Yadavjaspreetlexie on 04-27-2025 GFR/1.73 sq M.predicted among non-blacks MDRD (S/P/Bld) [Vol rate/Area] 34 mL/min/{1.73_m2} Low >60 [facility] Comment on above: mL/min/1.73m2 CKD-EP I Creatinine Equation (2020) Hematocrit Auto (Bld) [Volum e fraction]Ordered By: Rodrigue Saldaña on 04-27-2025 Hematocrit (Bld) [Volume fraction] 34.7 % Low 37-47 [facility] Hemoglobin measurementOrdere d By: Rodrigue Saldaña on 04-27-2025 Hemoglobin (Bld) [Mass/Vol] 11.3 g/dL Low 12.0-15.0 [facility] Immature granulocytes/100 WB C Auto (Bld)Ordered By: Rodrigue Saldaña on 04-27-2025 Immature granulocytes/100 WBC (Bld) 0.300 % 0.0-0.9 [facility] Comment on above: IG% - Immature Granu locytes (promyelocytes, myelocytes and metamyelocytes) > 1% indicates that a LEFT SHIFT is Present. MCV (mean corpuscular volume ) determinationOrdered By: Rodrigue Saldaña on 04-27-2025 MCV (RBC) [Entitic vol] 89.9 fL 81-99 [facility] Mean corpuscular hemoglobin (MCH) determinationOrdered By: Rodrigue Saldaña on 04-27-2025 MCH (RBC) [Entitic mass] 29.3 pg 27.0-32.0 [facility] Mean corpuscular hemoglobin concentration (MCHC) determinationOrdered By: Rodrigue Saldaña on 04-27-2025 MCHC (RBC) [Mass/Vol] 32.6 g/dL 32-36 [facility] Mean platelet volume determi nationOrdered By: Rodrigue Saldaña on 04-27-2025 Platelet mean volume (Bld) [Entitic vol] 9.6 fL 6.2-12.0 [facility] Monocyte percentageOrdered B y: Rodrigue Saldaña on 04-27-2025 Monocytes/100 WBC (Bld) 8.6 % 0-10 [facility] Neutrophil percentageOrdered By: Rodrigue Saldaña on 04-27-2025 Neutrophils/100 WBC (Bld) 58.2 % 47-70 [facility] Nucleated red blood cell per centageOrdered By: Rodrigue Saldaña on 04-27-2025 Nucleated RBC/100 WBC (Bld) [Ratio] 0 % 0-5 [facility] Platelet countOrdered By: Dwayne Saldaña on 04-27-2025 Platelets (Bld) [#/Vol] 166 10*3/uL 150-450 [facility] Potassium measurement (mass/ volume)Ordered By: Rodrigue Saldaña on 04-27-2025 Potassium (Unsp spec) [Mass/Vol] 3.9 mmol/L 3.3-5.1 [facility] RBC Auto (Bld) [#/Vol]Ordere d By: Rodrigue Saldaña on 04-27-2025 RBC (Bld) [#/Vol] 3.86 10*6/uL Low 4.2-5.4 [facility] Serum creatinine measurement (mass/volume)Ordered By: Rodrigue Saldaña on 04-27-2025 Creatinine [Mass/Vol] 1.52 mg/dL High 0.70-1.20 [facility] Serum glucose measurement (m ass/volume)Ordered By: Rodrigue Saldaña on 04-27-2025 Glucose [Mass/Vol] 93 mg/dL 70-99 [facility] Serum or plasma calcium murali urement (mass/volume)Ordered By: Rodrigue Saldaña on 04-27-2025 Calcium [Mass/Vol] 8.7 mg/dL 7.6-11.0 [facility] Serum or plasma urea nitroge n measurement (mass/volume)Ordered By: Rodrigue Saldaña on 04-27-2025 Urea nitrogen [Mass/Vol] 36 mg/dL High 4-19 [facility] Sodium levelOrdered By: Tea Saldaña on 04-27-2025 Sodium [Moles/Vol] 141 mmol/L 133-145 [facility] White blood cell (WBC) count Ordered By: Rodrigue Saldaña on 04-27-2025 WBC (Bld) [#/Vol] 7.5 10*3/uL 4.4-11.0 [facility] Calculated very low density lipoprotein (VLDL) cholesterol measurementOrdered By: Rodrigue Saldaña on 04-20-2025 Calculated very low density lipoprotein (VLDL) cholesterol measurement 23 mg/dL 5-40 [facility] LDL calc ser/plasOrdered By: Rodrigue Saldaña on 04-20-2025 Cholesterol in LDL [Mass/Vol] 82 mg/dL [facility] Comment on above: Mhpfvcjddf=928-654 m g/dL & Higher Eyry=783 mg/dL or greaterFriedwald Equation for LDL-C Screening total cholesterol/ high density lipoprotein (HDL) cholesterol ratioOrdered By: Rodrigue Saldaña on 04-20-2025 Cholesterol.total/Marixa sterol in HDL [Mass ratio] 3.25 {ratio} [facility] Serum or plasma cholesterol in HDL measurement (mass/volume)Ordered By: Rodrigue Saldaña on 04-20-2025 Cholesterol in HDL [Mass/Vol] 47 mg/dL >40 [facility] Comment on above: National Cholesterol Education Program (NCEP) guidelines:<40 mg/dL: Low HDL-cholesterol (major risk factor for CHD)>= 60 mg/dL: High HDL-cholesterol (negative risk factor for CHD)HDL-cholesterol is affected by a number of factors, e.g. smoking, exercise, hormones, sex and age. Serum or plasma cholesterol measurement (mass/volume)Ordered By: Rodrigue Saldaña on 04-20-2025 Cholesterol [Mass/Vol] 152 mg/dL <201 [facility] Comment on above: Cholesterol level, D esirable <200 mg/dLBorderline high cholesterol 200-239 mg/dLHigh cholesterol >=240 mg/dLRecommendations of the NCEP Adult Treatment Panel for the following risk-cutoff thresholds for the [place] population. Triglycerides measurementOrd ered By: Rodrigue Saldaña on 04-20-2025 Triglyceride [Mass/Vol] 114 mg/dL <199 [facility] Comment on above: The drugs N-Acetylcy steine and Metamizole may falsely depress this assay. Normal range: <150 mg/dLBorderline High: 150-199 mg/dLHigh: 200-499 mg/dLVery High: >500 mg/dL Vitamin B12 ser/plasOrdered By: Rodrigue Saldaña on 04-20-2025 Cobalamin (Vitamin B12) [Mass/Vol] 389 pg/mL 180-914 [facility] Absolute lymphocyte countOrd ered By: Rodrigue Saldaña on 03-30-2025 Lymphocytes Auto (Unsp spec) [#/Vol] 1.66 10*3/uL 0.83-4.51 [facility] Absolute neutrophil countOrd ered By: Rodrigue Saldaña on 03-30-2025 Neutrophils (Bld) [#/Vol] 3.7 10*3/uL 2.0-7.7 [facility] Anion gap in Serum or Plasma Ordered By: Rodrigue Saldaña on 03-30-2025 Anion gap [Moles/Vol] 15 mmol/L 5-15 [facility] Automated lymphocyte count a s percentage of total leukocytesOrdered By: Rodrigue Saldaña on 03-30-2025 Lymphocytes/100 WBC Auto (Unsp spec) 25.1 % 19-41 [facility] BUN/creatinine ratioOrdered By: Teanew egyptmaryann Saldaña on 03-30-2025 Urea nitrogen/Creatinine [Mass ratio] 26.5 mg/mg High 10-20 [facility] Basophil percentageOrdered B y: Rodrigue Saldaña on 03-30-2025 Basophils/100 WBC (Bld) 0.6 % 0-1 [facility] Carbon dioxide, total [Moles /volume] in Central venous bloodOrdered By: [facility] Hospitalmaryann Saldaña on 03-30-2025 CO2 [Moles/Vol] 21.5 mmol/L 21.0-32.0 [facility] Chloride assayOrdered By: Dwayne Saldaña on 03-30-2025 Chloride [Moles/Vol] 103 mmol/L 98-108 [facility] Eosinophil percentageOrdered By: naveed Saldaña on 03-30-2025 Eosinophils/100 WBC (Bld) 9.2 % High 0-5 [facility] Erythrocyte distribution wid th ratioOrdered By: jessicanew egyptmaryann Saldaña on 03-30-2025 Erythrocyte distribution width (RBC) [Ratio] 15.9 % High 11.6-14.6 [facility] Erythrocyte distribution wid th standard deviationOrdered By: jessicanew egyptmaryann Saldaña on 03-30-2025 Erythrocyte distribution width (RBC) [Ratio] 52.4 fl High 35.1-43.9 [facility] Glomerular filtration rate ( GFR) estimation/1.73 sq m using serum, plasma, or whole bOrdered By: Rodrigue Saldaña on 03-30-2025 GFR/1.73 sq M.predicted among non-blacks MDRD (S/P/Bld) [Vol rate/Area] 32 mL/min/{1.73_m2} Low >60 [facility] Comment on above: mL/min/1.73m2 CKD-EP I Creatinine Equation (2020) Hematocrit Auto (Bld) [Volum e fraction]Ordered By: Rodrigue Saldaña on 03-30-2025 Hematocrit (Bld) [Volume fraction] 34.4 % Low 37-47 [facility] Hemoglobin measurementOrdere d By: Rodrigue Saldaña on 03-30-2025 Hemoglobin (Bld) [Mass/Vol] 11.4 g/dL Low 12.0-15.0 [facility] Immature granulocytes/100 WB C Auto (Bld)Ordered By: Rodrigue Saldaña on 03-30-2025 Immature granulocytes/100 WBC (Bld) 0.500 % 0.0-0.9 [facility] Comment on above: IG% - Immature Granu locytes (promyelocytes, myelocytes and metamyelocytes) > 1% indicates that a LEFT SHIFT is Present. MCV (mean corpuscular volume ) determinationOrdered By: Rodrigue Saldaña on 03-30-2025 MCV (RBC) [Entitic vol] 89.4 fL 81-99 [facility] Mean corpuscular hemoglobin (MCH) determinationOrdered By: Rodrigue Saldaña on 03-30-2025 MCH (RBC) [Entitic mass] 29.6 pg 27.0-32.0 [facility] Mean corpuscular hemoglobin concentration (MCHC) determinationOrdered By: Rodrigue Saldaña on 03-30-2025 MCHC (RBC) [Mass/Vol] 33.1 g/dL 32-36 [facility] Mean platelet volume determi nationOrdered By: Rodrigue Saldaña on 03-30-2025 Platelet mean volume (Bld) [Entitic vol] 10.1 fL 6.2-12.0 [facility] Monocyte percentageOrdered B y: Rodrigue Saldaña on 03-30-2025 Monocytes/100 WBC (Bld) 8.2 % 0-10 [facility] Neutrophil percentageOrdered By: Rodrigue Saldaña on 03-30-2025 Neutrophils/100 WBC (Bld) 56.4 % 47-70 [facility] Nucleated red blood cell per centageOrdered By: Rodrigue Saldaña on 03-30-2025 Nucleated RBC/100 WBC (Bld) [Ratio] 0 % 0-5 [facility] Platelet countOrdered By: Dwayne Saldaña on 03-30-2025 Platelets (Bld) [#/Vol] 162 10*3/uL 150-450 [facility] Potassium measurement (mass/ volume)Ordered By: Rodrigue Saldaña on 03-30-2025 Potassium (Unsp spec) [Mass/Vol] 4.0 mmol/L 3.3-5.1 [facility] RBC Auto (Bld) [#/Vol]Ordere d By: Rodrigue Saldaña on 03-30-2025 RBC (Bld) [#/Vol] 3.85 10*6/uL Low 4.2-5.4 [facility] Serum creatinine measurement (mass/volume)Ordered By: Rodrigue Saldaña on 03-30-2025 Creatinine [Mass/Vol] 1.59 mg/dL High 0.70-1.20 [facility] Serum glucose measurement (m ass/volume)Ordered By: Rodrigue Saldaña on 03-30-2025 Glucose [Mass/Vol] 96 mg/dL 70-99 [facility] Serum or plasma calcium murali urement (mass/volume)Ordered By: Rodrigue Saldaña on 03-30-2025 Calcium [Mass/Vol] 8.3 mg/dL 7.6-11.0 [facility] Serum or plasma urea nitroge n measurement (mass/volume)Ordered By: Rodrigue Saldaña on 03-30-2025 Urea nitrogen [Mass/Vol] 42 mg/dL High 4-19 [facility] Sodium levelOrdered By: Tea Saldaña on 03-30-2025 Sodium [Moles/Vol] 140 mmol/L 133-145 [facility] White blood cell (WBC) count Ordered By: Rodrigue Saldaña on 03-30-2025 WBC (Bld) [#/Vol] 6.6 10*3/uL 4.4-11.0 [facility] Bilirubin Test strip Ql (U)O rdered By: Rodrigue Saldaña on 03-09-2025 Bilirubin Ql (U) Negative Negative [facility] Ketones Test strip Ql (U)Ord ered By: Rodrigue Saldaña on 03-09-2025 Ketones Ql (U) Negative Negative [facility] Nitrite Test strip Ql (U)Ord ered By: Rodrigue Saldaña on 03-09-2025 Nitrite Ql (U) Positive High Negative [facility] Protein Test strip Ql (U)Ord ered By: Rodrigue Saldaña on 03-09-2025 Protein Ql (U) 15 mg/dl High Negative [facility] Urine clarityOrdered By: Mikel Saldaña on 03-09-2025 Clarity (U) Sl. Cloudy Clear [facility] Urine color determinationOrd ered By: Rodrigue Saldaña on 03-09-2025 Color (U) Yellow Yellow [facility] Urine cultureOrdered By: Mikel Saldaña on 03-09-2025 Bacteria identified Cx Nom (U) Proteus mirabilis Abnormal [facility] Urine glucose detectionOrder ed By: Rodrigue Saldaña on 03-09-2025 Glucose Ql (U) Normal mg/dl Normal [facility] Urine leukocyte esterase det ection by dipstickOrdered By: Rodrigue Saldaña on 03-09-2025 Leukocyte esterase Test strip Ql (U) 500 /ul High Negative [facility] Urine pHOrdered By: Juvenal Saldaña on 03-09-2025 pH (U) 7.0 [pH] 5.0 - 8.0 [facility] Urine specific gravity measu rementOrdered By: Rodrigue Saldaña on 03-09-2025 Specific gravity (U) [Rel density] 1.005 1.002-1.030 [facility] Urine urobilinogen measureme ntOrdered By: Rodrigue Saldaña on 03-09-2025 Urobilinogen Ql (U) Normal mg/dl Normal [facility] Absolute lymphocyte countOrd ered By: Rodrigue Saldaña on 03-02-2025 Lymphocytes Auto (Unsp spec) [#/Vol] 1.17 10*3/uL 0.83-4.51 [facility] Absolute neutrophil countOrd ered By: Rodrigue Saldaña on 03-02-2025 Neutrophils (Bld) [#/Vol] 5.9 10*3/uL 2.0-7.7 [facility] Anion gap in Serum or Plasma Ordered By: Rodrigue Saldaña on 03-02-2025 Anion gap [Moles/Vol] 16 mmol/L High 5-15 [facility] Automated lymphocyte count a s percentage of total leukocytesOrdered By: Rodrigue Saldaña on 03-02-2025 Lymphocytes/100 WBC Auto (Unsp spec) 14.2 % Low 19-41 [facility] BUN/creatinine ratioOrdered By: Rodrigue Saldaña on 03-02-2025 Urea nitrogen/Creatinine [Mass ratio] 36.4 mg/mg High 10-20 [facility] Basophil percentageOrdered B y: Rodrigue Saldaña on 03-02-2025 Basophils/100 WBC (Bld) 0.6 % 0-1 [facility] Carbon dioxide, total [Moles /volume] in Central venous bloodOrdered By: Rodrigue Saldaña on 03-02-2025 CO2 [Moles/Vol] 20.3 mmol/L Low 21.0-32.0 [facility] Chloride assayOrdered By: Dwayne Saldaña on 03-02-2025 Chloride [Moles/Vol] 104 mmol/L 98-108 [facility] Eosinophil percentageOrdered By: naveed Saldaña on 03-02-2025 Eosinophils/100 WBC (Bld) 4.0 % 0-5 [facility] Erythrocyte distribution wid th ratioOrdered By: Rodrigue Saldaña on 03-02-2025 Erythrocyte distribution width (RBC) [Ratio] 15.1 % High 11.6-14.6 [facility] Erythrocyte distribution wid th standard deviationOrdered By: naveed Saldaña on 03-02-2025 Erythrocyte distribution width (RBC) [Ratio] 49.1 fl High 35.1-43.9 [facility] Glomerular filtration rate ( GFR) estimation/1.73 sq m using serum, plasma, or whole bOrdered By: Rodrigue Saldaña on 03-02-2025 GFR/1.73 sq M.predicted among non-blacks MDRD (S/P/Bld) [Vol rate/Area] 33 mL/min/{1.73_m2} Low >60 [facility] Comment on above: mL/min/1.73m2 CKD-EP I Creatinine Equation (2020) Hematocrit Auto (Bld) [Volum e fraction]Ordered By: Rodrigue Saldaña on 03-02-2025 Hematocrit (Bld) [Volume fraction] 36.9 % Low 37-47 [facility] Hemoglobin measurementOrdere d By: Rodrigue Saldaña on 03-02-2025 Hemoglobin (Bld) [Mass/Vol] 12.3 g/dL 12.0-15.0 [facility] Immature granulocytes/100 WB C Auto (Bld)Ordered By: Rodrigue Saldaña on 03-02-2025 Immature granulocytes/100 WBC (Bld) 0.600 % 0.0-0.9 [facility] Comment on above: IG% - Immature Granu locytes (promyelocytes, myelocytes and metamyelocytes) > 1% indicates that a LEFT SHIFT is Present. MCV (mean corpuscular volume ) determinationOrdered By: Rodrigue Saldaña on 03-02-2025 MCV (RBC) [Entitic vol] 87.9 fL 81-99 [facility] Mean corpuscular hemoglobin (MCH) determinationOrdered By: jessicanew egyptmaryann Saldaña on 03-02-2025 MCH (RBC) [Entitic mass] 29.3 pg 27.0-32.0 [facility] Mean corpuscular hemoglobin concentration (MCHC) determinationOrdered By: Rodrigue Saldaña on 03-02-2025 MCHC (RBC) [Mass/Vol] 33.3 g/dL 32-36 [facility] Mean platelet volume determi nationOrdered By: Rodrigue Saldaña on 03-02-2025 Platelet mean volume (Bld) [Entitic vol] 10.4 fL 6.2-12.0 [facility] Monocyte percentageOrdered B y: Rodrigue Saldaña on 03-02-2025 Monocytes/100 WBC (Bld) 8.6 % 0-10 [facility] Neutrophil percentageOrdered By: Rodrigue Saldaña on 03-02-2025 Neutrophils/100 WBC (Bld) 72.0 % High 47-70 [facility] Nucleated red blood cell per centageOrdered By: Rodrigue Saldaña on 03-02-2025 Nucleated RBC/100 WBC (Bld) [Ratio] 0 % 0-5 [facility] Platelet countOrdered By: Dwayne Saldaña on 03-02-2025 Platelets (Bld) [#/Vol] 191 10*3/uL 150-450 [facility] Potassium measurement (mass/ volume)Ordered By: Rodrigue Saldaña on 03-02-2025 Potassium (Unsp spec) [Mass/Vol] 4.1 mmol/L 3.3-5.1 [facility] RBC Auto (Bld) [#/Vol]Ordere d By: Rodrigue Saldaña on 03-02-2025 RBC (Bld) [#/Vol] 4.20 10*6/uL 4.2-5.4 [facility] Serum creatinine measurement (mass/volume)Ordered By: Rodrigue Saldaña on 03-02-2025 Creatinine [Mass/Vol] 1.54 mg/dL High 0.70-1.20 [facility] Serum glucose measurement (m ass/volume)Ordered By: Rodrigue Saldaña on 03-02-2025 Glucose [Mass/Vol] 90 mg/dL 70-99 [facility] Serum or plasma calcium murali urement (mass/volume)Ordered By: Rodrigue Saldaña on 03-02-2025 Calcium [Mass/Vol] 9.1 mg/dL 7.6-11.0 [facility] Serum or plasma urea nitroge n measurement (mass/volume)Ordered By: Rodrigue Saldaña on 03-02-2025 Urea nitrogen [Mass/Vol] 56 mg/dL High 4-19 [facility] Sodium levelOrdered By: Tea Saldaña on 03-02-2025 Sodium [Moles/Vol] 141 mmol/L 133-145 [facility] White blood cell (WBC) count Ordered By: Rodrigue Saldaña on 03-02-2025 WBC (Bld) [#/Vol] 8.2 10*3/uL 4.4-11.0 [facility] Anion gap in Serum or Plasma Ordered By: Regine Morales on 02-25-2025 Anion gap [Moles/Vol] 14 mmol/L 5-15 [facility] BUN/creatinine ratioOrdered By: Regine Morales on 02-25-2025 Urea nitrogen/Creatinine [Mass ratio] 25.9 mg/mg High 10-20 [facility] Carbon dioxide, total [Moles /volume] in Central venous bloodOrdered By: Regine Morales on 02-25-2025 CO2 [Moles/Vol] 24.7 mmol/L 21.0-32.0 [facility] Chloride assayOrdered By: Brian Morales on 02-25-2025 Chloride [Moles/Vol] 101 mmol/L 98-108 [facility] Glomerular filtration rate ( GFR) estimation/1.73 sq m using serum, plasma, or whole bOrdered By: Regine Morales on 02-25-2025 GFR/1.73 sq M.predicted among non-blacks MDRD (S/P/Bld) [Vol rate/Area] 36 mL/min/{1.73_m2} Low >60 [facility] Comment on above: mL/min/1.73m2 CKD-EP I Creatinine Equation (2020) Potassium measurement (mass/ volume)Ordered By: Regine Morales on 02-25-2025 Potassium (Unsp spec) [Mass/Vol] 3.9 mmol/L 3.3-5.1 [facility] Serum creatinine measurement (mass/volume)Ordered By: Regine Morales on 02-25-2025 Creatinine [Mass/Vol] 1.44 mg/dL High 0.70-1.20 [facility] Serum glucose measurement (m ass/volume)Ordered By: Regine Morales on 02-25-2025 Glucose [Mass/Vol] 105 mg/dL High 70-99 [facility] Serum or plasma calcium murali urement (mass/volume)Ordered By: Regine Morales on 02-25-2025 Calcium [Mass/Vol] 8.7 mg/dL 7.6-11.0 [facility] Serum or plasma urea nitroge n measurement (mass/volume)Ordered By: Regine Morales on 02-25-2025 Urea nitrogen [Mass/Vol] 37 mg/dL High 4-19 [facility] Sodium levelOrdered By: Noa Morales on 02-25-2025 Sodium [Moles/Vol] 139 mmol/L 133-145 [facility] Anion gap in Serum or Plasma Ordered By: Rodrigue Saldaña on 02-11-2025 Anion gap [Moles/Vol] 13 mmol/L 5-15 [facility] BUN/creatinine ratioOrdered By: Rodrigue Saldaña on 02-11-2025 Urea nitrogen/Creatinine [Mass ratio] 33.5 mg/mg High 10-20 [facility] Carbon dioxide, total [Moles /volume] in Central venous bloodOrdered By: Rodrigue Saldaña on 02-11-2025 CO2 [Moles/Vol] 24.0 mmol/L 21.0-32.0 [facility] Chloride assayOrdered By: Dwayne Saldaña on 02-11-2025 Chloride [Moles/Vol] 103 mmol/L 98-108 [facility] Glomerular filtration rate ( GFR) estimation/1.73 sq m using serum, plasma, or whole bOrdered By: Rodrigue Saldaña on 02-11-2025 GFR/1.73 sq M.predicted among non-blacks MDRD (S/P/Bld) [Vol rate/Area] 32 mL/min/{1.73_m2} Low >60 [facility] Comment on above: mL/min/1.73m2 CKD-EP I Creatinine Equation (2020) Potassium measurement (mass/ volume)Ordered By: Rodrigue Saldaña on 02-11-2025 Potassium (Unsp spec) [Mass/Vol] 4.1 mmol/L 3.3-5.1 [facility] Serum creatinine measurement (mass/volume)Ordered By: Rodrigue Saldaña on 02-11-2025 Creatinine [Mass/Vol] 1.57 mg/dL High 0.70-1.20 [facility] Serum glucose measurement (m ass/volume)Ordered By: Rodrigue Saldaña on 02-11-2025 Glucose [Mass/Vol] 117 mg/dL High 70-99 [facility] Serum or plasma calcium murali urement (mass/volume)Ordered By: Rodrigue Saldaña on 02-11-2025 Calcium [Mass/Vol] 8.9 mg/dL 7.6-11.0 [facility] Serum or plasma urea nitroge n measurement (mass/volume)Ordered By: Rodrigue Saldaña on 02-11-2025 Urea nitrogen [Mass/Vol] 53 mg/dL High 4-19 [facility] Sodium levelOrdered By: Tea jarred Piper on 02-11-2025 Sodium [Moles/Vol] 140 mmol/L 133-145 [facility] Absolute lymphocyte countOrd ered By: Rodrigue Saldaña on 02-03-2025 Lymphocytes Auto (Unsp spec) [#/Vol] 1.61 10*3/uL 0.83-4.51 [facility] Absolute neutrophil countOrd ered By: Rodrigue Saldaña on 02-03-2025 Neutrophils (Bld) [#/Vol] 4.2 10*3/uL 2.0-7.7 [facility] Anion gap in Serum or Plasma Ordered By: Rodrigue Saldaña on 02-03-2025 Anion gap [Moles/Vol] 14 mmol/L 5-15 [facility] Automated lymphocyte count a s percentage of total leukocytesOrdered By: Rodrigue Saldaña on 02-03-2025 Lymphocytes/100 WBC Auto (Unsp spec) 23.7 % 19-41 [facility] BUN/creatinine ratioOrdered By: Rodrigue Saldaña on 02-03-2025 Urea nitrogen/Creatinine [Mass ratio] 30.6 mg/mg High 10-20 [facility] Basophil percentageOrdered B y: Rodrigue Saldaña on 02-03-2025 Basophils/100 WBC (Bld) 0.7 % 0-1 [facility] Carbon dioxide, total [Moles /volume] in Central venous bloodOrdered By: Rodrigue Saldaña on 02-03-2025 CO2 [Moles/Vol] 22.6 mmol/L 21.0-32.0 [facility] Chloride assayOrdered By: Dwayne Saldaña on 02-03-2025 Chloride [Moles/Vol] 105 mmol/L 98-108 [facility] Eosinophil percentageOrdered By: Rodrigue Saldaña on 02-03-2025 Eosinophils/100 WBC (Bld) 5.2 % High 0-5 [facility] Erythrocyte distribution wid th ratioOrdered By: Rodrigue Saldaña on 02-03-2025 Erythrocyte distribution width (RBC) [Ratio] 15.4 % High 11.6-14.6 [facility] Erythrocyte distribution wid th standard deviationOrdered By: naveed Saldaña on 02-03-2025 Erythrocyte distribution width (RBC) [Ratio] 49.9 fl High 35.1-43.9 [facility] Glomerular filtration rate ( GFR) estimation/1.73 sq m using serum, plasma, or whole bOrdered By: [facility] on 02-03-2025 GFR/1.73 sq M.predicted among non-blacks MDRD (S/P/Bld) [Vol rate/Area] 36 mL/min/{1.73_m2} Low >60 [facility] Comment on above: mL/min/1.73m2 CKD-EP I Creatinine Equation (2020) Hematocrit Auto (Bld) [Volum e fraction]Ordered By: Rodrigue Saldaña on 02-03-2025 Hematocrit (Bld) [Volume fraction] 39.1 % 37-47 [facility] Hemoglobin measurementOrdere d By: Rodrigue Saldaña 02-03-2025 Hemoglobin (Bld) [Mass/Vol] 12.9 g/dL 12.0-15.0 [facility] Immature granulocytes/100 WB C Auto (Bld)Ordered By: Rodrigue Saldaña on 02-03-2025 Immature granulocytes/100 WBC (Bld) 0.600 % 0.0-0.9 [facility] Comment on above: IG% - Immature Granu locytes (promyelocytes, myelocytes and metamyelocytes) > 1% indicates that a LEFT SHIFT is Present. MCV (mean corpuscular volume ) determinationOrdered By: Rodrigue Saldaña on 02-03-2025 MCV (RBC) [Entitic vol] 89.3 fL 81-99 [facility] Mean corpuscular hemoglobin (MCH) determinationOrdered By: Rodrigue Saldaña on 02-03-2025 MCH (RBC) [Entitic mass] 29.5 pg 27.0-32.0 [facility] Mean corpuscular hemoglobin concentration (MCHC) determinationOrdered By: Rodrigue Saldaña on 02-03-2025 MCHC (RBC) [Mass/Vol] 33.0 g/dL 32-36 [facility] Mean platelet volume determi nationOrdered By: Rodrigue Saldaña on 02-03-2025 Platelet mean volume (Bld) [Entitic vol] 9.7 fL 6.2-12.0 [facility] Monocyte percentageOrdered B y: Rodrigue Saldaña on 02-03-2025 Monocytes/100 WBC (Bld) 8.2 % 0-10 [facility] Neutrophil percentageOrdered By: Rodrigue Saldñaa on 02-03-2025 Neutrophils/100 WBC (Bld) 61.6 % 47-70 [facility] Nucleated red blood cell per centageOrdered By: Rodrigue Saldaña on 02-03-2025 Nucleated RBC/100 WBC (Bld) [Ratio] 0 % 0-5 [facility] Platelet countOrdered By: Dwayne Saldaña on 02-03-2025 Platelets (Bld) [#/Vol] 180 10*3/uL 150-450 [facility] Potassium measurement (mass/ volume)Ordered By: Rodrigue Saldaña on 02-03-2025 Potassium (Unsp spec) [Mass/Vol] 4.5 mmol/L 3.3-5.1 [facility] RBC Auto (Bld) [#/Vol]Ordere d By: Rodrigue Saldaña on 02-03-2025 RBC (Bld) [#/Vol] 4.38 10*6/uL 4.2-5.4 [facility] Serum creatinine measurement (mass/volume)Ordered By: Rodrigue Saldaña on 02-03-2025 Creatinine [Mass/Vol] 1.42 mg/dL High 0.70-1.20 [facility] Serum glucose measurement (m ass/volume)Ordered By: Rodrigue Saldaña on 02-03-2025 Glucose [Mass/Vol] 104 mg/dL High 70-99 [facility] Serum or plasma calcium murali urement (mass/volume)Ordered By: Rodrigue Saldaña on 02-03-2025 Calcium [Mass/Vol] 9.1 mg/dL 7.6-11.0 [facility] Serum or plasma urea nitroge n measurement (mass/volume)Ordered By: Rodrigue Saldaña on 02-03-2025 Urea nitrogen [Mass/Vol] 44 mg/dL High 4-19 [facility] Sodium levelOrdered By: Tea Saldaña on 02-03-2025 Sodium [Moles/Vol] 142 mmol/L 133-145 [facility] White blood cell (WBC) count Ordered By: Rodrigue Saldaña on 02-03-2025 WBC (Bld) [#/Vol] 6.8 10*3/uL 4.4-11.0 [facility] Anion gap in Serum or Plasma Ordered By: Rodrigue Saldaña on 01-28-2025 Anion gap [Moles/Vol] 12 mmol/L 5-15 [facility] BUN/creatinine ratioOrdered By: Rodrigue Saldaña on 01-28-2025 Urea nitrogen/Creatinine [Mass ratio] 39.0 mg/mg High 10-20 [facility] Carbon dioxide, total [Moles /volume] in Central venous bloodOrdered By: Rodrigue Saldaña on 01-28-2025 CO2 [Moles/Vol] 24.8 mmol/L 21.0-32.0 [facility] Chloride assayOrdered By: Dwayne Saldaña on 01-28-2025 Chloride [Moles/Vol] 105 mmol/L 98-108 [facility] Glomerular filtration rate ( GFR) estimation/1.73 sq m using serum, plasma, or whole bOrdered By: Rodrigue Saldaña on 01-28-2025 GFR/1.73 sq M.predicted among non-blacks MDRD (S/P/Bld) [Vol rate/Area] 39 mL/min/{1.73_m2} Low >60 [facility] Comment on above: mL/min/1.73m2 CKD-EP I Creatinine Equation (2020) Potassium measurement (mass/ volume)Ordered By: Rodrigue Saldaña on 01-28-2025 Potassium (Unsp spec) [Mass/Vol] 3.9 mmol/L 3.3-5.1 [facility] Serum creatinine measurement (mass/volume)Ordered By: Rodrigue Saldaña on 01-28-2025 Creatinine [Mass/Vol] 1.34 mg/dL High 0.70-1.20 [facility] Serum glucose measurement (m ass/volume)Ordered By: Rodrigue Saldaña on 01-28-2025 Glucose [Mass/Vol] 99 mg/dL 70-99 [facility] Serum or plasma calcium murali urement (mass/volume)Ordered By: Rodrigue Saldaña on 01-28-2025 Calcium [Mass/Vol] 8.7 mg/dL 7.6-11.0 [facility] Serum or plasma urea nitroge n measurement (mass/volume)Ordered By: Rodrigue Saldaña on 01-28-2025 Urea nitrogen [Mass/Vol] 52 mg/dL High 4-19 [facility] Sodium levelOrdered By: Tea Saldaña on 01-28-2025 Sodium [Moles/Vol] 142 mmol/L 133-145 [facility] Calculated very low density lipoprotein (VLDL) cholesterol measurementOrdered By: Regine Morales on 01-19-2025 Calculated very low density lipoprotein (VLDL) cholesterol measurement 18 mg/dL 5-40 [facility] LDL calc ser/plasOrdered By: Regine Morales on 01-19-2025 Cholesterol in LDL [Mass/Vol] 82 mg/dL [facility] Comment on above: Azhsrymloh=954-946 m g/dL & Higher Mkuv=982 mg/dL or greater Screening total cholesterol/ high density lipoprotein (HDL) cholesterol ratioOrdered By: Regine Morales on 01-19-2025 Cholesterol.total/Marixa sterol in HDL [Mass ratio] 3.00 {ratio} [facility] Serum or plasma cholesterol in HDL measurement (mass/volume)Ordered By: Regine Morales on 01-19-2025 Cholesterol in HDL [Mass/Vol] 50 mg/dL >40 [facility] Comment on above: National Cholesterol Education Program (NCEP) guidelines:<40 mg/dL: Low HDL-cholesterol (major risk factor for CHD)>= 60 mg/dL: High HDL-cholesterol (negative risk factor for CHD)HDL-cholesterol is affected by a number of factors, e.g. smoking, exercise, hormones, sex and age. Serum or plasma cholesterol measurement (mass/volume)Ordered By: Regine Morales on 01-19-2025 Cholesterol [Mass/Vol] 150 mg/dL <201 [facility] Comment on above: Cholesterol level, D esirable <200 mg/dLBorderline high cholesterol 200-239 mg/dLHigh cholesterol >=240 mg/dLRecommendations of the NCEP Adult Treatment Panel for the following risk-cutoff thresholds for the [place] population. Triglycerides measurementOrd ered By: Regine Morales on 01-19-2025 Triglyceride [Mass/Vol] 89 mg/dL <199 [facility] Comment on above: The drugs N-Acetylcy steine and Metamizole may falsely depress this assay. Normal range: <150 mg/dLBorderline High: 150-199 mg/dLHigh: 200-499 mg/dLVery High: >500 mg/dL Vitamin B12 ser/plasOrdered By: Regine Morales on 01-19-2025 Cobalamin (Vitamin B12) [Mass/Vol] 353 pg/mL 180-914 [facility] Anion gap in Serum or Plasma Ordered By: Rodrigue Saldaña on 01-14-2025 Anion gap [Moles/Vol] 12 mmol/L 5-15 [facility] BUN/creatinine ratioOrdered By: Rodrigue Saldaña on 01-14-2025 Urea nitrogen/Creatinine [Mass ratio] 38.2 mg/mg High 10-20 [facility] Carbon dioxide, total [Moles /volume] in Central venous bloodOrdered By: Rodrigue Saldaña on 01-14-2025 CO2 [Moles/Vol] 23.5 mmol/L 21.0-32.0 [facility] Chloride assayOrdered By: Dwayne Saldaña on 01-14-2025 Chloride [Moles/Vol] 104 mmol/L 98-108 [facility] Glomerular filtration rate ( GFR) estimation/1.73 sq m using serum, plasma, or whole bOrdered By: Rodrigue Saldaña on 01-14-2025 GFR/1.73 sq M.predicted among non-blacks MDRD (S/P/Bld) [Vol rate/Area] 30 mL/min/{1.73_m2} Low >60 [facility] Comment on above: mL/min/1.73m2 CKD-EP I Creatinine Equation (2020) Potassium measurement (mass/ volume)Ordered By: naveed Saldaña on 01-14-2025 Potassium (Unsp spec) [Mass/Vol] 4.4 mmol/L 3.3-5.1 [facility] Serum creatinine measurement (mass/volume)Ordered By: Teanew egyptmaryann Saldaña on 01-14-2025 Creatinine [Mass/Vol] 1.65 mg/dL High 0.70-1.20 [facility] Serum glucose measurement (m ass/volume)Ordered By: Rodrigue Saldaña on 01-14-2025 Glucose [Mass/Vol] 109 mg/dL High 70-99 [facility] Serum or plasma calcium murali urement (mass/volume)Ordered By: Rodrigue Saldaña on 01-14-2025 Calcium [Mass/Vol] 8.9 mg/dL 7.6-11.0 [facility] Serum or plasma urea nitroge n measurement (mass/volume)Ordered By: Teanew egyptmaryann Saldaña on 01-14-2025 Urea nitrogen [Mass/Vol] 63 mg/dL High 4-19 [facility] Sodium levelOrdered By: Tea mezalexie Piper on 01-14-2025 Sodium [Moles/Vol] 139 mmol/L 133-145 [facility] Gastroenterology Visit Repor ton 01-09-2025 Gastroenterology Visit Report [facility] [address] [place] [address] OFFICE VISIT Date of Service: 01/09/25 MR#: [id number] Acct: [id number] Name: YAA WARD Rep #: [id number] : 1940 Provider: WINNIE Chavis Age/Sex: 84/F Location[place] [facility] Status: Signed Intake Vital Signs 12/22/24 15:09 Height 5 ft 3 in Intake Visit Reasons: GERD, DYSPHAGIA Chief Complaint: Barretts esophagus [employer] Required: No Is patient in pain?: No Allergies clindamycin Allergy (Unknown, Unverified 12/22/24 15:12) Rash/Itching morphine Allergy (Unknown, Unverified 12/22/24 15:12) GI Upset, Vomiting Penicillins Allergy (Unknown, Unverified 12/22/24 15:12) Rash Dvzgsmy-FUS-QgW Reductase Inhibitor Allergy (Unknown, Unverified 12/22/24 15:12) [...] Denies abdominal pain, n/v/c, and bloody stools. [facility] Medical History (Updated 12/22/24 @ 15:40 [...] Dry eye (more content not included)... Normal [facility] Absolute lymphocyte countOrd ered By: Rodrigue Saldaña on 01-05-2025 Lymphocytes Auto (Unsp spec) [#/Vol] 1.91 10*3/uL 0.83-4.51 [facility] Absolute neutrophil countOrd ered By: Rodrigue Saldaña on 01-05-2025 Neutrophils (Bld) [#/Vol] 5.7 10*3/uL 2.0-7.7 [facility] Anion gap in Serum or Plasma Ordered By: Rodrigue Saldaña on 01-05-2025 Anion gap [Moles/Vol] 15 mmol/L 5-15 [facility] Automated lymphocyte count a s percentage of total leukocytesOrdered By: Rodrigue Saldaña on 01-05-2025 Lymphocytes/100 WBC Auto (Unsp spec) 22.4 % 19-41 [facility] BUN/creatinine ratioOrdered By: Rodrigue Saldaña on 01-05-2025 Urea nitrogen/Creatinine [Mass ratio] 31.3 mg/mg High 10-20 [facility] Basophil percentageOrdered B y: Rodrigue Saldaña on 01-05-2025 Basophils/100 WBC (Bld) 0.5 % 0-1 [facility] Carbon dioxide, total [Moles /volume] in Central venous bloodOrdered By: Rodrigue Saldaña on 01-05-2025 CO2 [Moles/Vol] 21.6 mmol/L 21.0-32.0 [facility] Chloride assayOrdered By: Dwayne Saldaña on 01-05-2025 Chloride [Moles/Vol] 103 mmol/L 98-108 [facility] Eosinophil percentageOrdered By: Rodrigue Saldaña 01-05-2025 Eosinophils/100 WBC (Bld) 3.6 % 0-5 [facility] Erythrocyte distribution wid th ratioOrdered By: Rodrigue Saldaña on 01-05-2025 Erythrocyte distribution width (RBC) [Ratio] 15.3 % High 11.6-14.6 [facility] Erythrocyte distribution wid th standard deviationOrdered By: Rodrigue Saldaña on 01-05-2025 Erythrocyte distribution width (RBC) [Ratio] 49.3 fl High 35.1-43.9 [facility] Glomerular filtration rate ( GFR) estimation/1.73 sq m using serum, plasma, or whole bOrdered By: Rodrigue Saldaña on 01-05-2025 GFR/1.73 sq M.predicted among non-blacks MDRD (S/P/Bld) [Vol rate/Area] 30 mL/min/{1.73_m2} Low >60 [facility] Comment on above: mL/min/1.73m2 CKD-EP I Creatinine Equation (2020) Hematocrit Auto (Bld) [Volum e fraction]Ordered By: Rodrigeu Saldaña 01-05-2025 Hematocrit (Bld) [Volume fraction] 42.1 % 37-47 [facility] Hemoglobin measurementOrdere d By: Rodrigue Saldaña on 01-05-2025 Hemoglobin (Bld) [Mass/Vol] 13.6 g/dL 12.0-15.0 [facility] Immature granulocytes/100 WB C Auto (Bld)Ordered By: Rodrigue Saldaña on 01-05-2025 Immature granulocytes/100 WBC (Bld) 0.400 % 0.0-0.9 [facility] Comment on above: IG% - Immature Granu locytes (promyelocytes, myelocytes and metamyelocytes) > 1% indicates that a LEFT SHIFT is Present. MCV (mean corpuscular volume ) determinationOrdered By: Rodrigue Saldaña on 01-05-2025 MCV (RBC) [Entitic vol] 88.8 fL 81-99 [facility] Mean corpuscular hemoglobin (MCH) determinationOrdered By: Rodrigue Saldaña on 01-05-2025 MCH (RBC) [Entitic mass] 28.7 pg 27.0-32.0 [facility] Mean corpuscular hemoglobin concentration (MCHC) determinationOrdered By: Rodrigue Saldaña on 01-05-2025 MCHC (RBC) [Mass/Vol] 32.3 g/dL 32-36 [facility] Mean platelet volume determi nationOrdered By: Rodrigue Saldaña on 01-05-2025 Platelet mean volume (Bld) [Entitic vol] 10.0 fL 6.2-12.0 [facility] Monocyte percentageOrdered B y: Rodrigeu Saldaña on 01-05-2025 Monocytes/100 WBC (Bld) 7.0 % 0-10 [facility] Neutrophil percentageOrdered By: Rodrigue Saldaña on 01-05-2025 Neutrophils/100 WBC (Bld) 66.1 % 47-70 [facility] Nucleated red blood cell per centageOrdered By: Rodrigue Saldaña on 01-05-2025 Nucleated RBC/100 WBC (Bld) [Ratio] 0 % 0-5 [facility] Platelet countOrdered By: Dwayne jessicajarred Saldaña on 01-05-2025 Platelets (Bld) [#/Vol] 190 10*3/uL 150-450 [facility] Potassium measurement (mass/ volume)Ordered By: Rodrigue Saldaña on 01-05-2025 Potassium (Unsp spec) [Mass/Vol] 4.9 mmol/L 3.3-5.1 [facility] RBC Auto (Bld) [#/Vol]Ordere d By: Rodrigue Saldaña on 01-05-2025 RBC (Bld) [#/Vol] 4.74 10*6/uL 4.2-5.4 [facility] Serum creatinine measurement (mass/volume)Ordered By: Rodrigue Saldaña on 01-05-2025 Creatinine [Mass/Vol] 1.65 mg/dL High 0.70-1.20 [facility] Serum glucose measurement (m ass/volume)Ordered By: Rodrigue Saldaña on 01-05-2025 Glucose [Mass/Vol] 92 mg/dL 70-99 [facility] Serum or plasma calcium murali urement (mass/volume)Ordered By: Rodrigue Saldaña on 01-05-2025 Calcium [Mass/Vol] 9.3 mg/dL 7.6-11.0 [facility] Serum or plasma urea nitroge n measurement (mass/volume)Ordered By: Rodrigue Saldaña on 01-05-2025 Urea nitrogen [Mass/Vol] 52 mg/dL High 4-19 [facility] Sodium levelOrdered By: Tea Saldaña on 01-05-2025 Sodium [Moles/Vol] 139 mmol/L 133-145 [facility] White blood cell (WBC) count Ordered By: Rodrigue Saldaña on 01-05-2025 WBC (Bld) [#/Vol] 8.5 10*3/uL 4.4-11.0 [facility] Potassium measurement (mass/ volume)Ordered By: Rodrigue Saldaña on 01-02-2025 Potassium (Unsp spec) [Mass/Vol] 4.8 mmol/L 3.3-5.1 [facility] Anion gap in Serum or Plasma Ordered By: Rodrigue Saldaña on 12-31-2024 Anion gap [Moles/Vol] 11 mmol/L 5-15 [facility] BUN/creatinine ratioOrdered By: Rodrigue Saldaña on 12-31-2024 Urea nitrogen/Creatinine [Mass ratio] 36.3 mg/mg High 10-20 [facility] Carbon dioxide, total [Moles /volume] in Central venous bloodOrdered By: Rodrigue Saldaña on 12-31-2024 CO2 [Moles/Vol] 21.7 mmol/L 21.0-32.0 [facility] Chloride assayOrdered By: Dwayne Saldaña on 12-31-2024 Chloride [Moles/Vol] 107 mmol/L 98-108 [facility] Glomerular filtration rate ( GFR) estimation/1.73 sq m using serum, plasma, or whole bOrdered By: Rodrigue Saldaña on 12-31-2024 GFR/1.73 sq M.predicted among non-blacks MDRD (S/P/Bld) [Vol rate/Area] 32 mL/min/{1.73_m2} Low >60 [facility] Comment on above: mL/min/1.73m2 CKD-EP I Creatinine Equation (2020) Potassium measurement (mass/ volume)Ordered By: Rodrigue Saldaña on 12-31-2024 Potassium (Unsp spec) [Mass/Vol] 5.2 mmol/L High 3.3-5.1 [facility] Serum creatinine measurement (mass/volume)Ordered By: Rodrigue Saldaña on 12-31-2024 Creatinine [Mass/Vol] 1.58 mg/dL High 0.70-1.20 [facility] Serum glucose measurement (m ass/volume)Ordered By: Rodrigue Saldaña on 12-31-2024 Glucose [Mass/Vol] 112 mg/dL High 70-99 [facility] Serum or plasma calcium murali urement (mass/volume)Ordered By: Rodrigue Saldaña on 12-31-2024 Calcium [Mass/Vol] 8.7 mg/dL 7.6-11.0 [facility] Serum or plasma urea nitroge n measurement (mass/volume)Ordered By: Rodrigue Saldaña on 12-31-2024 Urea nitrogen [Mass/Vol] 57 mg/dL High 4-19 [facility] Sodium levelOrdered By: Tea Saldaña on 12-31-2024 Sodium [Moles/Vol] 140 mmol/L 133-145 [facility] Orthopedic Visit Reporton Orthopedic Visit Report [facility] [address] [place] [address] OFFICE VISIT Date of Service: 12/22/24 MR#: [id number] Acct: [id number] Name: SYLVIAMONIEYAA Rep #: [id number] : 1940 Provider: Dr. Arjun skaggs MD Age/Sex: 84/F Location[place] [facility] [place] Status: Signed with Addenda ADDENDUM by RORY [...] Performing Provider: Arjun Felton MD Performing Location: [facility] Administered by: Arjun Felton MD on 12/22/24 15:45 Dose Route Admin Location Dispensed Lot Number Expiration Date NDC Man ufacturer 40 mg intra-articular Left shoulder 1 mL [id number] 01/08/26 8995-2850-40 [facility] Date cc: * Signed Intake [...] Penicillins Allergy (Unknown, Unverified 12/22/24 15:12) Rash Xncysse-IKP-CgA Reductase Inhibitor Allergy (Unknown, Unverified 12/22/24 15:12) [...] you fallen in the past year?: No [facility] Medical History (Updated 12/22/24 @ 15:40 by Arjun Felton MD) Primary osteoarthritis, left shoulder Left shoulder pain Colonoscopy planned UTI (urinary tract infection) Uterine fibroid Lumbar spinal stenosis Other lack of coordination Muscle weakness (generalized) Need for assistance with personal care Personal history of colonic polyps Family history of malignant neoplasm of digestive organs Depression, unspecified Irritable bowel (more content not included)... Normal [facility] Shoulder min 2 Viewson 12-22 Shoulder min 2 Views [facility] Imaging Services [address] [place] [address] Shoulder min 2 Views MR#: [id number] Acct: [id number] Name: YAA WARD Rep #: [id number] : 1940 F 84 From: Nadia garcia MD PCP: Dr. Rodrigue Saldaña MD Status: DEP AMB Study: Shoulder min 2 Views Date of Exam: 12/22/24 Exam# [id number] Ordering Dr: Arjun Felton MD PROCEDURE: SHOULDER [...] of an acute bone abnormality. Reading Location: [place] [address] CC: Dr. Rodrigue Saldaña MD; Dr. Arjun Felton MD Pattern Grader: Signed Normal [facility] Anion gap in Serum or Plasma Ordered By: Regine Morales on 12-17-2024 Anion gap [Moles/Vol] 17 mmol/L High 5-15 [facility] BUN/creatinine ratioOrdered By: Regine Morales on 12-17-2024 Urea nitrogen/Creatinine [Mass ratio] 30.2 mg/mg High 10-20 [facility] Carbon dioxide, total [Moles /volume] in Central venous bloodOrdered By: Regine Morales on 12-17-2024 CO2 [Moles/Vol] 17.9 mmol/L Low 21.0-32.0 [facility] Chloride assayOrdered By: Brian Morales on 12-17-2024 Chloride [Moles/Vol] 101 mmol/L 98-108 [facility] GFR/1.73 sq M.predicted benita g non-blacks MDRD (S/P/Bld) [Vol rate/Area]Ordered By: Regine Morales on 12-17-2024 Estimated GFR (MDRD) Non-Af Amer 30 Low >60 [facility] Comment on above: mL/min/1.73m2 CKD-EP I Creatinine Equation (2020) Glomerular filtration rate ( GFR) estimation/1.73 sq m using serum, plasma, or whole bOrdered By: Regine Morales on 12-17-2024 GFR/1.73 sq M.predicted among non-blacks MDRD (S/P/Bld) [Vol rate/Area] 30 mL/min/{1.73_m2} Low >60 [facility] Comment on above: mL/min/1.73m2 CKD-EP I Creatinine Equation (2020) Potassium (Unsp spec) [Mass/ Vol]Ordered By: Regine Morales on 12-17-2024 Potassium [Moles/Vol] 4.8 mmol/L 3.3-5.1 [facility] Comment on above: Hemolysis present, R esults could be affected. Potassium measurement (mass/ volume)Ordered By: Regine Morales on 12-17-2024 Potassium (Unsp spec) [Mass/Vol] 4.8 mmol/L 3.3-5.1 [facility] Comment on above: Hemolysis present, R esults could be affected. Serum creatinine measurement (mass/volume)Ordered By: Regine Morales on 12-17-2024 Creatinine [Mass/Vol] 1.69 mg/dL High 0.70-1.20 [facility] Serum glucose measurement (m ass/volume)Ordered By: Regine Morales on 12-17-2024 Glucose [Mass/Vol] 89 mg/dL 70-99 [facility] Serum or plasma calcium murali urement (mass/volume)Ordered By: Regine Morales on 12-17-2024 Calcium [Mass/Vol] 9.5 mg/dL 7.6-11.0 [facility] Serum or plasma urea nitroge n measurement (mass/volume)Ordered By: Regine Morales on 12-17-2024 Urea nitrogen [Mass/Vol] 51 mg/dL High 4-19 [facility] Sodium levelOrdered By: Noa Morales on 12-17-2024 Sodium [Moles/Vol] 136 mmol/L 133-145 [facility] Absolute lymphocyte countOrd ered By: Rodrigue Saldaña on 12-08-2024 Lymphocytes Auto (Unsp spec) [#/Vol] 2.02 10*3/uL 0.83-4.51 [facility] Absolute neutrophil countOrd ered By: Rodrigue Saldaña on 12-08-2024 Neutrophils (Bld) [#/Vol] 3.5 10*3/uL 2.0-7.7 [facility] Anion gap in Serum or Plasma Ordered By: Rodrigue Saldaña on 12-08-2024 Anion gap [Moles/Vol] 20 mmol/L High 5-15 [facility] Automated lymphocyte count a s percentage of total leukocytesOrdered By: Rodrigue Saldaña on 12-08-2024 Lymphocytes/100 WBC Auto (Unsp spec) 30.4 % 19-41 [facility] BUN/creatinine ratioOrdered By: Rodrigue Saldaña on 12-08-2024 Urea nitrogen/Creatinine [Mass ratio] 34.5 mg/mg High 10-20 [facility] Basophil percentageOrdered B y: Rodrigue Leifkalina on 12-08-2024 Basophils/100 WBC (Bld) 0.9 % 0-1 [facility] Carbon dioxide, total [Moles /volume] in Central venous bloodOrdered By: Dwaynenaveed Yadavjaspreetlexie on 12-08-2024 CO2 [Moles/Vol] 14.3 mmol/L Low 21.0-32.0 [facility] Chloride assayOrdered By: Dwayne nereydamaryann Saldaña on 12-08-2024 Chloride [Moles/Vol] 105 mmol/L 98-108 [facility] Eosinophil percentageOrdered By: Arenmaryann aYdavjaspreetlexie on 12-08-2024 Eosinophils/100 WBC (Bld) 6.3 % High 0-5 [facility] Erythrocyte distribution wid th (RBC) [Ratio]Ordered By: Rodrigue Saldaña on 12-08-2024 Erythrocyte distribution width (RBC) [Entitic vol] 48.8 fL High 35.1-43.9 [facility] Erythrocyte distribution wid th ratioOrdered By: Rodrigue Leifjaspreetlexie on 12-08-2024 Erythrocyte distribution width (RBC) [Ratio] 15.2 % High 11.6-14.6 [facility] Erythrocyte distribution wid th standard deviationOrdered By: Rodrigue Leifjaspreetlexie on 12-08-2024 Erythrocyte distribution width (RBC) [Ratio] 48.8 fl High 35.1-43.9 [facility] GFR/1.73 sq M.predicted benita g non-blacks MDRD (S/P/Bld) [Vol rate/Area]Ordered By: Rodrigue Saldaña on 12-08-2024 Estimated GFR (MDRD) Non-Af Amer 33 Low >60 [facility] Comment on above: mL/min/1.73m2 CKD-EP I Creatinine Equation (2020) Glomerular filtration rate ( GFR) estimation/1.73 sq m using serum, plasma, or whole bOrdered By: Rodrigue Saldaña on 12-08-2024 GFR/1.73 sq M.predicted among non-blacks MDRD (S/P/Bld) [Vol rate/Area] 33 mL/min/{1.73_m2} Low >60 [facility] Comment on above: mL/min/1.73m2 CKD-EP I Creatinine Equation (2020) Hematocrit Auto (Bld) [Volum e fraction]Ordered By: Rodrigue Saldaña on 12-08-2024 Hematocrit (Bld) [Volume fraction] 39.0 % 37-47 [facility] Hemoglobin measurementOrdere d By: Rodrigue Saldaña on 12-08-2024 Hemoglobin (Bld) [Mass/Vol] 12.8 g/dL 12.0-15.0 [facility] Immature granulocytes/100 WB C Auto (Bld)Ordered By: Rodrigue Saldaña on 12-08-2024 Immature granulocytes/100 WBC (Bld) 0.300 % 0.0-0.9 [facility] Comment on above: IG% - Immature Granu locytes (promyelocytes, myelocytes and metamyelocytes) > 1% indicates that a LEFT SHIFT is Present. Lymphocytes Auto (Unsp spec) [#/Vol]Ordered By: Rodrigue Saldaña on 12-08-2024 Lymphocytes (Bld) [#/Vol] 2.02 10*3/uL 0.83-4.51 [facility] Lymphocytes/100 WBC Auto (Un sp spec)Ordered By: Rodrigue Saldaña on 12-08-2024 Lymphocytes/100 WBC (Bld) 30.4 % 19-41 [facility] MCV (mean corpuscular volume ) determinationOrdered By: Rodrigue Saldaña on 12-08-2024 MCV (RBC) [Entitic vol] 88.4 fL 81-99 [facility] Mean corpuscular hemoglobin (MCH) determinationOrdered By: Rodrigue Saldaña on 12-08-2024 MCH (RBC) [Entitic mass] 29.0 pg 27.0-32.0 [facility] Mean corpuscular hemoglobin concentration (MCHC) determinationOrdered By: Rodrigue Saldaña on 12-08-2024 MCHC (RBC) [Mass/Vol] 32.8 g/dL 32-36 [facility] Mean platelet volume determi nationOrdered By: Rodrigue Olejaspreetlexie on 12-08-2024 Platelet mean volume (Bld) [Entitic vol] 10.2 fL 6.2-12.0 [facility] Monocyte percentageOrdered B y: Rodrigue Leifjaspreetlexie on 12-08-2024 Monocytes/100 WBC (Bld) 8.7 % 0-10 [facility] Neutrophil percentageOrdered By: Dwaynenaveed Yadavjaspreetlexie on 12-08-2024 Neutrophils/100 WBC (Bld) 53.4 % 47-70 [facility] Nucleated red blood cell per centageOrdered By: Rodrigue Leifjaspreetlexie on 12-08-2024 Nucleated RBC/100 WBC (Bld) [Ratio] 0 % 0-5 [facility] Platelet countOrdered By: Dwayne naveed Leifjaspreetlexie on 12-08-2024 Platelets (Bld) [#/Vol] 186 10*3/uL 150-450 [facility] Potassium (Unsp spec) [Mass/ Vol]Ordered By: Teasalmaryann Yadavjaspreetlexie on 12-08-2024 Potassium [Moles/Vol] 4.8 mmol/L 3.3-5.1 [facility] Potassium measurement (mass/ volume)Ordered By: Rodrigue Yadavjaspreetlexie on 12-08-2024 Potassium (Unsp spec) [Mass/Vol] 4.8 mmol/L 3.3-5.1 [facility] RBC Auto (Bld) [#/Vol]Ordere d By: Dwaynenaveed Leifjaspreetlexie on 12-08-2024 RBC (Bld) [#/Vol] 4.41 10*6/uL 4.2-5.4 [facility] Serum creatinine measurement (mass/volume)Ordered By: Rodrigue Saldaña on 12-08-2024 Creatinine [Mass/Vol] 1.54 mg/dL High 0.70-1.20 [facility] Serum glucose measurement (m ass/volume)Ordered By: Rodrigue Saldaña on 12-08-2024 Glucose [Mass/Vol] 79 mg/dL 70-99 [facility] Serum or plasma calcium murali urement (mass/volume)Ordered By: Rodrigue Saldaña on 12-08-2024 Calcium [Mass/Vol] 9.2 mg/dL 7.6-11.0 [facility] Serum or plasma urea nitroge n measurement (mass/volume)Ordered By: Rodrigue Saldaña on 12-08-2024 Urea nitrogen [Mass/Vol] 53 mg/dL High 4-19 [facility] Sodium levelOrdered By: Tea skaggsbenjamin Piper on 12-08-2024 Sodium [Moles/Vol] 139 mmol/L 133-145 [facility] White blood cell (WBC) count Ordered By: Rodrigue Saldaña on 12-08-2024 WBC (Bld) [#/Vol] 6.6 10*3/uL 4.4-11.0 [facility] Anion gap in Serum or Plasma Ordered By: Regine Morales on 12-03-2024 Anion gap [Moles/Vol] 15 mmol/L 5-15 [facility] BUN/creatinine ratioOrdered By: Regine Morales on 12-03-2024 Urea nitrogen/Creatinine [Mass ratio] 30.2 mg/mg High 10-20 [facility] Carbon dioxide, total [Moles /volume] in Central venous bloodOrdered By: Regine Morales on 12-03-2024 CO2 [Moles/Vol] 20.8 mmol/L Low 21.0-32.0 [facility] Chloride assayOrdered By: Brian Morales on 12-03-2024 Chloride [Moles/Vol] 104 mmol/L 98-108 [facility] GFR/1.73 sq M.predicted benita g non-blacks MDRD (S/P/Bld) [Vol rate/Area]Ordered By: Regine Morales on 12-03-2024 Estimated GFR (MDRD) Non-Af Amer 29 Low >60 [facility] Comment on above: mL/min/1.73m2 CKD-EP I Creatinine Equation (2020) Glomerular filtration rate ( GFR) estimation/1.73 sq m using serum, plasma, or whole bOrdered By: Regine Morales on 12-03-2024 GFR/1.73 sq M.predicted among non-blacks MDRD (S/P/Bld) [Vol rate/Area] 29 mL/min/{1.73_m2} Low >60 [facility] Comment on above: mL/min/1.73m2 CKD-EP I Creatinine Equation (2020) Potassium (Unsp spec) [Mass/ Vol]Ordered By: Regine Morales on 12-03-2024 Potassium [Moles/Vol] 5.0 mmol/L 3.3-5.1 [facility] Potassium measurement (mass/ volume)Ordered By: Regine Morales on 12-03-2024 Potassium (Unsp spec) [Mass/Vol] 5.0 mmol/L 3.3-5.1 [facility] [facility] Serum creatinine measurement (mass/volume)Ordered By: Regine Morales on 12-03-2024 Creatinine [Mass/Vol] 1.70 mg/dL High 0.70-1.20 [facility] Serum glucose measurement (m ass/volume)Ordered By: Regine Morales on 12-03-2024 Glucose [Mass/Vol] 89 mg/dL 70-99 [facility] Serum or plasma calcium murali urement (mass/volume)Ordered By: Regine Morales on 12-03-2024 Calcium [Mass/Vol] 8.1 mg/dL 7.6-11.0 [facility] Serum or plasma urea nitroge n measurement (mass/volume)Ordered By: Regine Morales on 12-03-2024 Urea nitrogen [Mass/Vol] 51 mg/dL High 4-19 [facility] Sodium levelOrdered By: Noa Morales on 12-03-2024 Sodium [Moles/Vol] 141 mmol/L 133-145 [facility] Anion gap in Serum or Plasma Ordered By: Regine Morales on 11-19-2024 Anion gap [Moles/Vol] 15 mmol/L 5-15 [facility] BUN/creatinine ratioOrdered By: Regine Morales on 11-19-2024 Urea nitrogen/Creatinine [Mass ratio] 32.7 mg/mg High 10-20 [facility] Carbon dioxide, total [Moles /volume] in Central venous bloodOrdered By: Regine Morales on 11-19-2024 CO2 [Moles/Vol] 20.2 mmol/L Low 21.0-32.0 [facility] Chloride assayOrdered By: Brian Morales on 11-19-2024 Chloride [Moles/Vol] 106 mmol/L 98-108 [facility] GFR/1.73 sq M.predicted benita g non-blacks MDRD (S/P/Bld) [Vol rate/Area]Ordered By: Regine Morales on 11-19-2024 Estimated GFR (MDRD) Non-Af Amer 29 Low >60 [facility] Comment on above: mL/min/1.73m2 CKD-EP I Creatinine Equation (2020) Glomerular filtration rate ( GFR) estimation/1.73 sq m using serum, plasma, or whole bOrdered By: Regine Morales on 11-19-2024 GFR/1.73 sq M.predicted among non-blacks MDRD (S/P/Bld) [Vol rate/Area] 29 mL/min/{1.73_m2} Low >60 [facility] Comment on above: mL/min/1.73m2 CKD-EP I Creatinine Equation (2020) Potassium (Unsp spec) [Mass/ Vol]Ordered By: Regine Morales on 11-19-2024 Potassium [Moles/Vol] 4.4 mmol/L 3.3-5.1 [facility] Potassium measurement (mass/ volume)Ordered By: Regine Morales on 11-19-2024 Potassium (Unsp spec) [Mass/Vol] 4.4 mmol/L 3.3-5.1 [facility] Serum creatinine measurement (mass/volume)Ordered By: Regine Morales on 11-19-2024 Creatinine [Mass/Vol] 1.70 mg/dL High 0.70-1.20 [facility] Serum glucose measurement (m ass/volume)Ordered By: Regine Morales on 11-19-2024 Glucose [Mass/Vol] 118 mg/dL High 70-99 [facility] Serum or plasma calcium murali urement (mass/volume)Ordered By: Regine Morales on 11-19-2024 Calcium [Mass/Vol] 9.3 mg/dL 7.6-11.0 [facility] Serum or plasma urea nitroge n measurement (mass/volume)Ordered By: Regine Morales on 11-19-2024 Urea nitrogen [Mass/Vol] 56 mg/dL High 4-19 [facility] Sodium levelOrdered By: Noa Morales on 11-19-2024 Sodium [Moles/Vol] 142 mmol/L 133-145 [facility] Absolute lymphocyte countOrd ered By: Rodrigue Saldaña on 11-10-2024 Lymphocytes Auto (Unsp spec) [#/Vol] 1.74 10*3/uL 0.83-4.51 [facility] Absolute neutrophil countOrd ered By: Rodrigue Saldaña on 11-10-2024 Neutrophils (Bld) [#/Vol] 3.5 10*3/uL 2.0-7.7 [facility] Automated lymphocyte count a s percentage of total leukocytesOrdered By: Rodrigue Saldaña on 11-10-2024 Lymphocytes/100 WBC Auto (Unsp spec) 26.8 % 19-41 [facility] BUN/creatinine ratioOrdered By: Rodrigue Saldaña on 11-10-2024 Urea nitrogen/Creatinine [Mass ratio] 32.8 mg/mg High 10-20 [facility] Basophil percentageOrdered B y: Rodrigue Saldaña on 11-10-2024 Basophils/100 WBC (Bld) 0.6 % 0-1 [facility] Carbon dioxide measurementOr dered By: Rodrigue Saldaña on 11-10-2024 CO2 [Moles/Vol] 21.7 mmol/L Low 22.0-29.0 [facility] Chloride measurementOrdered By: Rodrigue Saldaña on 11-10-2024 Chloride [Moles/Vol] 106 mmol/L 96-108 [facility] Eosinophil percentageOrdered By: Rodrigue Saldaña on 11-10-2024 Eosinophils/100 WBC (Bld) 8.6 % High 0-5 [facility] Erythrocyte distribution wid th (RBC) [Ratio]Ordered By: Rodrigue Saldaña on 11-10-2024 Erythrocyte distribution width (RBC) [Entitic vol] 52.1 fL High 35.1-43.9 [facility] Erythrocyte distribution wid th ratioOrdered By: Rodrigue Saldaña on 11-10-2024 Erythrocyte distribution width (RBC) [Ratio] 15.9 % High 11.6-14.6 [facility] Erythrocyte distribution wid th standard deviationOrdered By: Rodrigue Saldaña on 11-10-2024 Erythrocyte distribution width (RBC) [Ratio] 52.1 fl High 35.1-43.9 [facility] GFR/1.73 sq M.predicted benita g non-blacks MDRD (S/P/Bld) [Vol rate/Area]Ordered By: Rodrigue Saldaña on 11-10-2024 Estimated GFR (MDRD) Non-Af Amer 37 Low >60 [facility] Comment on above: mL/min/1.73m2 CKD-EP I Creatinine Equation (2020) Glomerular filtration rate ( GFR) estimation/1.73 sq m using serum, plasma, or whole bOrdered By: Rodrigue Saldaña on 11-10-2024 GFR/1.73 sq M.predicted among non-blacks MDRD (S/P/Bld) [Vol rate/Area] 37 mL/min/{1.73_m2} Low >60 [facility] Comment on above: mL/min/1.73m2 CKD-EP I Creatinine Equation (2020) Hematocrit Auto (Bld) [Volum e fraction]Ordered By: Rodrigue Saldaña on 11-10-2024 Hematocrit (Bld) [Volume fraction] 38.2 % 37-47 [facility] Hemoglobin measurementOrdere d By: Rodrigue Saldaña on 11-10-2024 Hemoglobin (Bld) [Mass/Vol] 12.3 g/dL 12.0-15.0 [facility] Immature granulocytes/100 WB C Auto (Bld)Ordered By: Rodrigue Saldaña on 11-10-2024 Immature granulocytes/100 WBC (Bld) 0.300 % 0.0-0.9 [facility] Comment on above: IG% - Immature Granu locytes (promyelocytes, myelocytes and metamyelocytes) > 1% indicates that a LEFT SHIFT is Present. Lymphocytes Auto (Unsp spec) [#/Vol]Ordered By: Rodrigue Saldaña on 11-10-2024 Lymphocytes (Bld) [#/Vol] 1.74 10*3/uL 0.83-4.51 [facility] Lymphocytes/100 WBC Auto (Un sp spec)Ordered By: Rodrigue Saldaña on 11-10-2024 Lymphocytes/100 WBC (Bld) 26.8 % 19-41 [facility] MCV (mean corpuscular volume ) determinationOrdered By: Rodrigue Saldaña on 11-10-2024 MCV (RBC) [Entitic vol] 89.9 fL 81-99 [facility] Mean corpuscular hemoglobin (MCH) determinationOrdered By: Rodrigue Saldaña on 11-10-2024 MCH (RBC) [Entitic mass] 28.9 pg 27.0-32.0 [facility] Mean corpuscular hemoglobin concentration (MCHC) determinationOrdered By: Rodrigue Saldaña on 11-10-2024 MCHC (RBC) [Mass/Vol] 32.2 g/dL 32-36 [facility] Mean platelet volume determi nationOrdered By: Rodrigue Saldaña on 11-10-2024 Platelet mean volume (Bld) [Entitic vol] 9.7 fL 6.2-12.0 [facility] Monocyte percentageOrdered B y: Rodrigue Saldaña on 11-10-2024 Monocytes/100 WBC (Bld) 9.1 % 0-10 [facility] Neutrophil percentageOrdered By: Rodrigue Saldaña on 11-10-2024 Neutrophils/100 WBC (Bld) 54.6 % 47-70 [facility] Nucleated red blood cell per centageOrdered By: Rodrigue Saldaña on 11-10-2024 Nucleated RBC/100 WBC (Bld) [Ratio] 0 % 0-5 [facility] Platelet countOrdered By: Dwayne nereydamaryann Saldaña on 11-10-2024 Platelets (Bld) [#/Vol] 171 10*3/uL 150-450 [facility] RBC Auto (Bld) [#/Vol]Ordere d By: Teasalmaryann Saldaña on 11-10-2024 RBC (Bld) [#/Vol] 4.25 10*6/uL 4.2-5.4 [facility] Serum creatinine measurement (mass/volume)Ordered By: Rodrigue Saldaña on 11-10-2024 Creatinine [Mass/Vol] 1.40 mg/dL High 0.70-1.20 [facility] Serum glucose measurement (m ass/volume)Ordered By: Rodrigue Saldaña on 11-10-2024 Glucose [Mass/Vol] 99 mg/dL 70-99 [facility] Serum or plasma anion gap de termination (moles/volume)Ordered By: Rodrigue Saldaña on 11-10-2024 Anion gap [Moles/Vol] 14 mmol/L 5-15 [facility] Serum or plasma calcium murali urement (mass/volume)Ordered By: Rodrigue Saldaña on 11-10-2024 Calcium [Mass/Vol] 9.1 mg/dL 7.6-11.0 [facility] Serum or plasma potassium me asurementOrdered By: Rodrigue Saldaña on 11-10-2024 Potassium [Moles/Vol] 4.5 mmol/L 3.3-5.1 [facility] Serum or plasma sodium measu rement (moles/volume)Ordered By: Rodrigue Saldaña on 11-10-2024 Sodium [Moles/Vol] 142 mmol/L 133-145 [facility] Serum or plasma urea nitroge n measurement (mass/volume)Ordered By: Rodrigue Saldaña on 11-10-2024 Urea nitrogen [Mass/Vol] 46 mg/dL High 4-19 [facility] White blood cell (WBC) count Ordered By: Rodrigue Saldaña on 11-10-2024 WBC (Bld) [#/Vol] 6.5 10*3/uL 4.4-11.0 [facility] BUN/creatinine ratioOrdered By: Regine Morales on 11-05-2024 Urea nitrogen/Creatinine [Mass ratio] 35.1 mg/mg High 10-20 [facility] Carbon dioxide measurementOr dered By: Regine Morales on 11-05-2024 CO2 [Moles/Vol] 20.5 mmol/L Low 22.0-29.0 [facility] Chloride measurementOrdered By: Regine Morales on 11-05-2024 Chloride [Moles/Vol] 103 mmol/L 96-108 [facility] Creatinine [Moles/Vol]Ordere d By: Regine Morales on 11-05-2024 Creatinine [Mass/Vol] 1.5 mg/dL High 0.6-1.0 [facility] GFR/1.73 sq M.predicted benita g non-blacks MDRD (S/P/Bld) [Vol rate/Area]Ordered By: Regine Morales on 11-05-2024 Estimated GFR (MDRD) Non-Af Amer 35 Low >60 [facility] Comment on above: mL/min/1.73m2 CKD-EP I Creatinine Equation (2020) Glomerular filtration rate ( GFR) estimation/1.73 sq m using serum, plasma, or whole bOrdered By: Regine Morales on 11-05-2024 GFR/1.73 sq M.predicted among non-blacks MDRD (S/P/Bld) [Vol rate/Area] 35 mL/min/{1.73_m2} Low >60 [facility] Comment on above: mL/min/1.73m2 CKD-EP I Creatinine Equation (2020) Serum glucose measurement (m ass/volume)Ordered By: Regine Morales on 11-05-2024 Glucose [Mass/Vol] 91 mg/dL 70-99 [facility] Serum or plasma anion gap de termination (moles/volume)Ordered By: Regine Morales on 11-05-2024 Anion gap [Moles/Vol] 17 mmol/L High 5-15 [facility] Serum or plasma calcium murali urement (mass/volume)Ordered By: Regine Morales on 11-05-2024 Calcium [Mass/Vol] 9.3 mg/dL 7.6-11.0 [facility] Serum or plasma creatinine m easurement (moles/volume)Ordered By: Regine Morales on 11-05-2024 Creatinine [Moles/Vol] 1.5 mg/dL High 0.6-1.0 [facility] Serum or plasma potassium me asurementOrdered By: Regine Morales on 11-05-2024 Potassium [Moles/Vol] 4.7 mmol/L 3.3-5.1 [facility] Serum or plasma sodium measu rement (moles/volume)Ordered By: Regine Morales on 11-05-2024 Sodium [Moles/Vol] 140 mmol/L 133-145 [facility] Serum or plasma urea nitroge n measurement (mass/volume)Ordered By: Regine Morales on 11-05-2024 Urea nitrogen [Mass/Vol] 52 mg/dL High 4-19 [facility] Blood urea nitrogen (BUN)/cr eatinine ratioOrdered By: Rodrigue Saldaña on 10-22-2024 Urea nitrogen/Creatinine [Mass ratio] 39.8 mg/mg High 10-20 [facility] Carbon dioxide measurementOr dered By: Rodrigue Saldaña on 10-22-2024 CO2 [Moles/Vol] 21.0 mmol/L 21.0-32.0 [facility] Chloride measurementOrdered By: Rodrigue Saldaña on 10-22-2024 Chloride [Moles/Vol] 109 mmol/L High 98-107 [facility] Estimated glomerular filtrat ion rate (GFR) AmericanOrdered By: Rodrigue Saldaña on 10-22-2024 Estimated GFR (MDRD) Amer 39 mL/min Low >60 [facility] Comment on above: GFR Calc Glomerular filtration rate ( GFR) estimationOrdered By: Rodrigue Saldaña on 10-22-2024 Estimated GFR (MDRD) Non-Af Amer 32 mL/min Low >60 [facility] Comment on above: Non- GFR Calc GFR/1.73 sq M.predicted among non-blacks MDRD (S/P/Bld) [Vol rate/Area] 32 mL/min/{1.73_m2} Low >60 [facility] Comment on above: Non- GFR Calc Glucose measurementOrdered B y: Rodrigue Saldaña on 10-22-2024 Glucose [Mass/Vol] 100 mg/dL 74-106 [facility] Comment on above: Fasting Glucose resu lt from 100 to 125 mg/dL suggests IMPAIRED HOMEOSTASIS per A.D.A. criteria. Potassium measurementOrdered By: Rodrigue Saldaña on 10-22-2024 Potassium [Moles/Vol] 4.4 mmol/L 3.5-5.1 [facility] Serum anion gap measurementO rdered By: Rodrigue Saldaña on 10-22-2024 Anion gap [Moles/Vol] 10 mmol/L 5-15 [facility] Serum or plasma calcium murali urement (mass/volume)Ordered By: Rodrigue Saldaña on 10-22-2024 Calcium [Mass/Vol] 9.2 mg/dL 8.5-10.1 [facility] Serum or plasma creatinine m easurement (mass/volume)Ordered By: Rodrigue Saldaña on 10-22-2024 Creatinine [Mass/Vol] 1.61 mg/dL High 0.55-1.02 [facility] Comment on above: The validity of the calculated GFR & GFRAA in patients over 70 years has not been determined. Clinical correlation is essential. Serum or plasma urea nitroge n measurement (mass/volume)Ordered By: Rodrigue Saldaña on 10-22-2024 Urea nitrogen [Mass/Vol] 64 mg/dL High 7-18 [facility] Sodium levelOrdered By: Tea Saldaña on 10-22-2024 Sodium [Moles/Vol] 140 mmol/L 136-145 [facility] High density lipoprotein (HD L) measurementOrdered By: Rodrigue Saldaña on 10-20-2024 Cholesterol in HDL [Mass/Vol] 49 mg/dL >40 [facility] Comment on above: The drugs N-Acetylcy steine and Metamizole may falsely depress this assay. Reference Range HDL <40 mg/dL Low HDL Cholesterol HDL >or= 60 mg/dL High HDL Cholesterol Low density lipoprotein (LDL ) cholesterol measurementOrdered By: Rodrigue Saldaña on 10-20-2024 Cholesterol in LDL [Mass/Vol] 84 mg/dL 0-130 [facility] Serum or plasma cholesterol measurement (mass/volume)Ordered By: Rodrigue Saldaña on 10-20-2024 Cholesterol [Mass/Vol] 162 mg/dL <200 [facility] Comment on above: <200 mg/dL Desirable 200-240 mg/dL Borderline >240 mg/dL High Risk Triglycerides measurementOrd ered By: Rodrigue Saldaña on 10-20-2024 Triglyceride [Mass/Vol] 147 mg/dL <199 [facility] Comment on above: The drugs N-Acetylcy steine and Metamizole may falsely depress this assay.Serum Triglycerides Reference Interval Normal <150 mg/dL Borderline high 150 - 199 mg/dL High 200 - 499 mg/dL Very High > or = 500 mg/dL Very low density lipoprotein (VLDL) cholesterol measurementOrdered By: Rodrigue Saldaña on 10-20-2024 Very low density lipoprotein (VLDL) cholesterol measurement 29 mg/dL 5-40 [facility] VLDL Cholesterol 29 mg/dL 5-40 [facility] Vitamin B12 measurementOrder ed By: Rodrigue Saldaña on 10-20-2024 Cobalamin (Vitamin B12) [Mass/Vol] 416 pg/mL 211-911 [facility] Absolute lymphocyte countOrd ered By: Rodrigue Saldaña on 10-13-2024 Lymphocytes Auto (Unsp spec) [#/Vol] 1.93 10*3/uL 0.83-4.51 [facility] Absolute neutrophil countOrd ered By: Rodrigue Saldaña on 10-13-2024 Neutrophils (Bld) [#/Vol] 2.8 10*3/uL 2.0-7.7 [facility] Automated lymphocyte count a s percentage of total leukocytesOrdered By: Rodrigue Saldaña on 10-13-2024 Lymphocytes/100 WBC Auto (Unsp spec) 31.3 % 19-41 [facility] Basophil percentageOrdered B y: Rodrigue Saldaña on 10-13-2024 Basophils/100 WBC (Bld) 0.8 % 0-1 [facility] Blood urea nitrogen (BUN)/cr eatinine ratioOrdered By: Rodrigue Saldaña on 10-13-2024 Urea nitrogen/Creatinine [Mass ratio] 32.4 mg/mg High 10-20 [facility] Carbon dioxide measurementOr dered By: Rodrigue Saldaña on 10-13-2024 CO2 [Moles/Vol] 22.0 mmol/L 21.0-32.0 [facility] Chloride measurementOrdered By: Rodrigue Saldaña on 10-13-2024 Chloride [Moles/Vol] 109 mmol/L High 98-107 [facility] Eosinophil percentageOrdered By: Rodrigue Saldaña on 10-13-2024 Eosinophils/100 WBC (Bld) 11.4 % High 0-5 [facility] Erythrocyte distribution wid th (RBC) [Ratio]Ordered By: Rodrigue Saldaña on 10-13-2024 Erythrocyte distribution width (RBC) [Entitic vol] 55.2 fL High 35.1-43.9 [facility] Erythrocyte distribution wid th ratioOrdered By: Rodrigue Saldaña on 10-13-2024 Erythrocyte distribution width (RBC) [Ratio] 16.3 % High 11.6-14.6 [facility] Erythrocyte distribution wid th standard deviationOrdered By: Rodrigue Saldaña on 10-13-2024 Erythrocyte distribution width (RBC) [Ratio] 55.2 fl High 35.1-43.9 [facility] Estimated glomerular filtrat ion rate (GFR) AmericanOrdered By: Rodrigue Saldaña on 10-13-2024 Estimated GFR (MDRD) Amer 43 mL/min Low >60 [facility] Comment on above: GFR Calc Glomerular filtration rate ( GFR) estimationOrdered By: Rodrigue Saldaña on 10-13-2024 Estimated GFR (MDRD) Non-Af Amer 36 mL/min Low >60 [facility] Comment on above: Non- GFR Calc GFR/1.73 sq M.predicted among non-blacks MDRD (S/P/Bld) [Vol rate/Area] 36 mL/min/{1.73_m2} Low >60 [facility] Comment on above: Non- GFR Calc Glucose measurementOrdered B y: Rodrigue Saldaña on 10-13-2024 Glucose [Mass/Vol] 89 mg/dL 74-106 [facility] Hematocrit Auto (Bld) [Volum e fraction]Ordered By: Rodrigue Saldaña on 10-13-2024 Hematocrit (Bld) [Volume fraction] 37.4 % 37-47 [facility] Hemoglobin measurementOrdere d By: Rodrigue Saldaña on 10-13-2024 Hemoglobin (Bld) [Mass/Vol] 11.8 g/dL Low 12.0-15.0 [facility] Immature granulocytes/100 WB C Auto (Bld)Ordered By: Rodrigue Saldaña on 10-13-2024 Immature granulocytes/100 WBC (Bld) 0.200 % 0.0-0.9 [facility] Comment on above: IG% - Immature Granu locytes (promyelocytes, myelocytes and metamyelocytes) > 1% indicates that a LEFT SHIFT is Present. Lymphocytes Auto (Unsp spec) [#/Vol]Ordered By: [facility] on 10-13-2024 Lymphocytes (Bld) [#/Vol] 1.93 10*3/uL 0.83-4.51 [facility] Lymphocytes/100 WBC Auto (Un sp spec)Ordered By: [facility] on 10-13-2024 Lymphocytes/100 WBC (Bld) 31.3 % 19-41 [facility] MCV (mean corpuscular volume ) determinationOrdered By: naveed Saldaña on 10-13-2024 MCV (RBC) [Entitic vol] 91.2 fL 81-99 [facility] Mean corpuscular hemoglobin (MCH) determinationOrdered By: jessicanew egyptmaryann Saldaña on 10-13-2024 MCH (RBC) [Entitic mass] 28.8 pg 27.0-32.0 [facility] Mean corpuscular hemoglobin concentration (MCHC) determinationOrdered By: [facility] on 10-13-2024 MCHC (RBC) [Mass/Vol] 31.6 g/dL Low 32-36 [facility] Mean platelet volume determi nationOrdered By: jessicanew egyptmaryann Saldaña on 10-13-2024 Platelet mean volume (Bld) [Entitic vol] 10.5 fL 6.2-12.0 [facility] Monocyte percentageOrdered B y: [facility] on 10-13-2024 Monocytes/100 WBC (Bld) 10.2 % High 0-10 [facility] Neutrophil percentageOrdered By: [facility] Leiflexie on 10-13-2024 Neutrophils/100 WBC (Bld) 46.1 % Low 47-70 [facility] Nucleated red blood cell per centageOrdered By: [facility] on 10-13-2024 Nucleated RBC/100 WBC (Bld) [Ratio] 0 % 0-5 [facility] Platelet countOrdered By: Dwayne Saldaña on 10-13-2024 Platelets (Bld) [#/Vol] 169 10*3/uL 150-450 [facility] Potassium measurementOrdered By: Rodrigue Saldaña on 10-13-2024 Potassium [Moles/Vol] 4.6 mmol/L 3.5-5.1 [facility] RBC Auto (Bld) [#/Vol]Ordere d By: Rodrigue Saldaña on 10-13-2024 RBC (Bld) [#/Vol] 4.10 10*6/uL Low 4.2-5.4 [facility] Serum anion gap measurementO rdered By: Rodrgiue Saldaña on 10-13-2024 Anion gap [Moles/Vol] 10 mmol/L 5-15 [facility] Serum or plasma calcium murali urement (mass/volume)Ordered By: Rodrigue Saldaña on 10-13-2024 Calcium [Mass/Vol] 8.9 mg/dL 8.5-10.1 [facility] Serum or plasma creatinine m easurement (mass/volume)Ordered By: Rodrigue Saldaña on 10-13-2024 Creatinine [Mass/Vol] 1.48 mg/dL High 0.55-1.02 [facility] Comment on above: The validity of the calculated GFR & GFRAA in patients over 70 years has not been determined. Clinical correlation is essential. Serum or plasma urea nitroge n measurement (mass/volume)Ordered By: Rodrigue Saldaña on 10-13-2024 Urea nitrogen [Mass/Vol] 48 mg/dL High 7-18 [facility] Sodium levelOrdered By: Tea Saldaña on 10-13-2024 Sodium [Moles/Vol] 141 mmol/L 136-145 [facility] White blood cell (WBC) count Ordered By: Rodrigue Saldaña on 10-13-2024 WBC (Bld) [#/Vol] 6.2 10*3/uL 4.4-11.0 [facility] Blood urea nitrogen (BUN)/cr eatinine ratioOrdered By: Rodrigue Saldaña on 10-08-2024 Urea nitrogen/Creatinine [Mass ratio] 30.3 mg/mg High 10-20 [facility] Carbon dioxide measurementOr dered By: Rodrigue Saldaña on 10-08-2024 CO2 [Moles/Vol] 24.0 mmol/L 21.0-32.0 [facility] Chloride measurementOrdered By: Rodrigue Saldaña on 10-08-2024 Chloride [Moles/Vol] 106 mmol/L 98-107 [facility] Estimated glomerular filtrat ion rate (GFR) AmericanOrdered By: Rodrigue Saldaña on 10-08-2024 Estimated GFR (MDRD) Amer 44 mL/min Low >60 [facility] Comment on above: GFR Calc Glomerular filtration rate ( GFR) estimationOrdered By: Rodrigue Saldaña on 10-08-2024 Estimated GFR (MDRD) Non-Af Amer 37 mL/min Low >60 [facility] Comment on above: Non- GFR Calc GFR/1.73 sq M.predicted among non-blacks MDRD (S/P/Bld) [Vol rate/Area] 37 mL/min/{1.73_m2} Low >60 [facility] Comment on above: Non- GFR Calc Glucose measurementOrdered B y: Rodrigue Saldaña on 10-08-2024 Glucose [Mass/Vol] 107 mg/dL High 74-106 [facility] Comment on above: Fasting Glucose resu lt from 100 to 125 mg/dL suggests IMPAIRED HOMEOSTASIS per A.D.A. criteria. Potassium measurementOrdered By: Rodrigue Saldaña on 10-08-2024 Potassium [Moles/Vol] 4.0 mmol/L 3.5-5.1 [facility] Serum anion gap measurementO rdered By: Rodrigue Saldaña on 10-08-2024 Anion gap [Moles/Vol] 9 mmol/L 5-15 [facility] Serum or plasma calcium murali urement (mass/volume)Ordered By: Rodrigue Saldaña on 10-08-2024 Calcium [Mass/Vol] 9.1 mg/dL 8.5-10.1 [facility] Serum or plasma creatinine m easurement (mass/volume)Ordered By: Rodrigue Saldaña on 10-08-2024 Creatinine [Mass/Vol] 1.45 mg/dL High 0.55-1.02 [facility] Comment on above: The validity of the calculated GFR & GFRAA in patients over 70 years has not been determined. Clinical correlation is essential. Serum or plasma urea nitroge n measurement (mass/volume)Ordered By: Rodrigue Saldaña on 10-08-2024 Urea nitrogen [Mass/Vol] 44 mg/dL High 7-18 [facility] Sodium levelOrdered By: Tea Saldaña on 10-08-2024 Sodium [Moles/Vol] 139 mmol/L 136-145 [facility] Blood urea nitrogen (BUN)/cr eatinine ratioOrdered By: Rodrigue Saldaña on 09-24-2024 Urea nitrogen/Creatinine [Mass ratio] 26.7 mg/mg High 10-20 [facility] Carbon dioxide measurementOr dered By: Rodrigue Saldaña on 09-24-2024 CO2 [Moles/Vol] 25.0 mmol/L 21.0-32.0 [facility] Chloride measurementOrdered By: Rodrigue Saldaña on 09-24-2024 Chloride [Moles/Vol] 105 mmol/L 98-107 [facility] Estimated glomerular filtrat ion rate (GFR) AmericanOrdered By: Rodrigue Saldaña on 09-24-2024 Estimated GFR (MDRD) Amer 44 mL/min Low >60 [facility] Comment on above: GFR Calc Glomerular filtration rate ( GFR) estimationOrdered By: Rodrigue Saldaña on 09-24-2024 Estimated GFR (MDRD) Non-Af Amer 36 mL/min Low >60 [facility] Comment on above: Non- GFR Calc GFR/1.73 sq M.predicted among non-blacks MDRD (S/P/Bld) [Vol rate/Area] 36 mL/min/{1.73_m2} Low >60 [facility] Comment on above: Non- GFR Calc Glucose measurementOrdered B y: Rodrigue Saldaña on 09-24-2024 Glucose [Mass/Vol] 101 mg/dL 74-106 [facility] Comment on above: Fasting Glucose resu lt from 100 to 125 mg/dL suggests IMPAIRED HOMEOSTASIS per A.D.A. criteria. Potassium measurementOrdered By: Rodrigue Saldaña on 09-24-2024 Potassium [Moles/Vol] 4.0 mmol/L 3.5-5.1 [facility] Serum anion gap measurementO rdered By: Rodrigue Saldaña on 09-24-2024 Anion gap [Moles/Vol] 8 mmol/L - [facility] Serum or plasma calcium murali urement (mass/volume)Ordered By: Rodrigue Saldaña on 09-24-2024 Calcium [Mass/Vol] 8.8 mg/dL 8.5-10.1 [facility] Serum or plasma creatinine m easurement (mass/volume)Ordered By: Rodrigue Saldaña on 09-24-2024 Creatinine [Mass/Vol] 1.46 mg/dL High 0.55-1.02 [facility] Comment on above: The validity of the calculated GFR & GFRAA in patients over 70 years has not been determined. Clinical correlation is essential. Serum or plasma urea nitroge n measurement (mass/volume)Ordered By: Rodrigue Saldaña on 09-24-2024 Urea nitrogen [Mass/Vol] 39 mg/dL High 03-27 [facility] Sodium levelOrdered By: Tea Saldaña on 09-24-2024 Sodium [Moles/Vol] 138 mmol/L 136-145 [facility] Absolute neutrophil countOrd ered By: Rodrigue Saldaña on 09-15-2024 Neutrophils (Bld) [#/Vol] 5.1 10*3/uL 2.0-7.7 [facility] Basophil percentageOrdered B y: Rodrigue Saldaña on 09-15-2024 Basophils/100 WBC (Bld) 0.8 % 0-1 [facility] Blood urea nitrogen (BUN)/cr eatinine ratioOrdered By: Rodrigue Saldaña on 09-15-2024 Urea nitrogen/Creatinine [Mass ratio] 30.7 mg/mg High 10- [facility] Carbon dioxide measurementOr dered By: Rodrigue Saldaña on 09-15-2024 CO2 [Moles/Vol] 21.0 mmol/L 21.0-32.0 [facility] Chloride measurementOrdered By: Rodrigue Saldaña on 09-15-2024 Chloride [Moles/Vol] 108 mmol/L High 98-107 [facility] Eosinophil percentageOrdered By: Rodrigue Saldaña on 09-15-2024 Eosinophils/100 WBC (Bld) 5.1 % High 0-5 [facility] Erythrocyte distribution wid th (RBC) [Ratio]Ordered By: Rodrigue Saldaña on 09-15-2024 Erythrocyte distribution width (RBC) [Entitic vol] 53.6 fL High 35.1-43.9 [facility] Erythrocyte distribution wid th ratioOrdered By: Rodrigue Saldaña on 09-15-2024 Erythrocyte distribution width (RBC) [Ratio] 16.4 % High 11.6-14.6 [facility] Estimated glomerular filtrat ion rate (GFR) AmericanOrdered By: Rodrigue Saldaña on 09-15-2024 Estimated GFR (MDRD) Amer 42 mL/min Low >60 [facility] Comment on above: GFR Calc Glomerular filtration rate ( GFR) estimationOrdered By: Rodrigue Saldaña on 09-15-2024 Estimated GFR (MDRD) Non-Af Amer 34 mL/min Low >60 [facility] Comment on above: Non- GFR Calc Glucose measurementOrdered B y: Rodrigue Saldaña on 09-15-2024 Glucose [Mass/Vol] 84 mg/dL 74-106 [facility] Hematocrit Auto (Bld) [Volum e fraction]Ordered By: Rodrigue Saldaña on 09-15-2024 Hematocrit (Bld) [Volume fraction] 37.5 % 37-47 [facility] Hemoglobin measurementOrdere d By: Rodrigue Saldaña on 09-15-2024 Hemoglobin (Bld) [Mass/Vol] 11.7 g/dL Low 12.0-15.0 [facility] Immature granulocytes/100 WB C Auto (Bld)Ordered By: Rodrigue Saldaña on 09-15-2024 Immature granulocytes/100 WBC (Bld) 0.500 % 0.0-0.9 [facility] Comment on above: IG% - Immature Granu locytes (promyelocytes, myelocytes and metamyelocytes) > 1% indicates that a LEFT SHIFT is Present. Lymphocytes Auto (Unsp spec) [#/Vol]Ordered By: Rodrigue Saldaña on 09-15-2024 Lymphocytes (Bld) [#/Vol] 1.95 10*3/uL 0.83-4.51 [facility] Lymphocytes/100 WBC Auto (Un sp spec)Ordered By: naveed Saldaña on 09-15-2024 Lymphocytes/100 WBC (Bld) 23.5 % 19-41 [facility] MCV (mean corpuscular volume ) determinationOrdered By: Rodrigue Saldaña on 09-15-2024 MCV (RBC) [Entitic vol] 90.1 fL 81-99 [facility] Mean corpuscular hemoglobin (MCH) determinationOrdered By: Rodrigue Saldaña on 09-15-2024 MCH (RBC) [Entitic mass] 28.1 pg 27.0-32.0 [facility] Mean corpuscular hemoglobin concentration (MCHC) determinationOrdered By: naveed Saldaña on 09-15-2024 MCHC (RBC) [Mass/Vol] 31.2 g/dL Low 32-36 [facility] Mean platelet volume determi nationOrdered By: jessicanew egyptmaryann Saldaña on 09-15-2024 Platelet mean volume (Bld) [Entitic vol] 10.4 fL 6.2-12.0 [facility] Monocyte percentageOrdered B y: Rodrigue Saldaña on 09-15-2024 Monocytes/100 WBC (Bld) 8.7 % 0-10 [facility] Neutrophil percentageOrdered By: [facility] Hospitalmaryann Sal[facility] on 09-15-2024 Neutrophils/100 WBC (Bld) 61.4 % 47-70 [facility] Nucleated red blood cell per centageOrdered By: naveed Saldaña on 09-15-2024 Nucleated RBC/100 WBC (Bld) [Ratio] 0 % 0-5 [facility] Platelet countOrdered By: Dwayne Saldaña on 09-15-2024 Platelets (Bld) [#/Vol] 225 10*3/uL 150-450 [facility] Potassium measurementOrdered By: Rodrigue Saldaña on 09-15-2024 Potassium [Moles/Vol] 4.8 mmol/L 3.5-5.1 [facility] RBC Auto (Bld) [#/Vol]Ordere d By: Rodrigue Saldaña on 09-15-2024 RBC (Bld) [#/Vol] 4.16 10*6/uL Low 4.2-5.4 [facility] Serum anion gap measurementO rdered By: Rodrigue Saldaña on 09-15-2024 Anion gap [Moles/Vol] 9 mmol/L 5-15 [facility] Serum or plasma calcium murali urement (mass/volume)Ordered By: Rodrigue Saldaña on 09-15-2024 Calcium [Mass/Vol] 8.9 mg/dL 8.5-10.1 [facility] Serum or plasma creatinine m easurement (mass/volume)Ordered By: Rodrigue Saldaña on 09-15-2024 Creatinine [Mass/Vol] 1.53 mg/dL High 0.55-1.02 [facility] Comment on above: The validity of the calculated GFR & GFRAA in patients over 70 years has not been determined. Clinical correlation is essential. Serum or plasma urea nitroge n measurement (mass/volume)Ordered By: Rodrigue Saldaña on 09-15-2024 Urea nitrogen [Mass/Vol] 47 mg/dL High -18 [facility] Sodium levelOrdered By: Tea Saldaña on 09-15-2024 Sodium [Moles/Vol] 138 mmol/L 136-145 [facility] White blood cell (WBC) count Ordered By: Rodrigue Saldaña on 09-15-2024 WBC (Bld) [#/Vol] 8.3 10*3/uL 4.4-11.0 [facility] Blood urea nitrogen (BUN)/cr eatinine ratioOrdered By: Rodirgue Saldaña on 08-27-2024 Urea nitrogen/Creatinine [Mass ratio] 25.7 mg/mg High 10-20 [facility] Carbon dioxide measurementOr dered By: Rodrigue Saldaña on 08-27-2024 CO2 [Moles/Vol] 26.0 mmol/L 21.0-32.0 [facility] Chloride measurementOrdered By: Rodrigue Saldaña on 08-27-2024 Chloride [Moles/Vol] 106 mmol/L 98-107 [facility] Estimated glomerular filtrat ion rate (GFR) AmericanOrdered By: Rodrigue Saldaña on 08-27-2024 Estimated GFR (MDRD) Amer 45 mL/min Low >60 [facility] Comment on above: GFR Calc Glomerular filtration rate ( GFR) estimationOrdered By: Rodrigue Saldaña on 08-27-2024 Estimated GFR (MDRD) Non-Af Amer 37 mL/min Low >60 [facility] Comment on above: Non- GFR Calc Glucose measurementOrdered B y: Rodrigue Saldaña on 08-27-2024 Glucose [Mass/Vol] 99 mg/dL 74-106 [facility] Potassium measurementOrdered By: Rodrigue Saldaña on 08-27-2024 Potassium [Moles/Vol] 4.1 mmol/L 3.5-5.1 [facility] Serum anion gap measurementO rdered By: Rodrigue Saldaña on 08-27-2024 Anion gap [Moles/Vol] 7 mmol/L 5-15 [facility] Serum or plasma calcium murali urement (mass/volume)Ordered By: Rodrigue Saldaña on 08-27-2024 Calcium [Mass/Vol] 8.8 mg/dL 8.5-10.1 [facility] Serum or plasma creatinine m easurement (mass/volume)Ordered By: Rodrigue Saldaña on 08-27-2024 Creatinine [Mass/Vol] 1.44 mg/dL High 0.55-1.02 [facility] Comment on above: The validity of the calculated GFR & GFRAA in patients over 70 years has not been determined. Clinical correlation is essential. Serum or plasma urea nitroge n measurement (mass/volume)Ordered By: Efnaveed Saldaña on 08-27-2024 Urea nitrogen [Mass/Vol] 37 mg/dL High 7-18 [facility] Sodium levelOrdered By: Tea stern Leifjaspreetlexie on 08-27-2024 Sodium [Moles/Vol] 140 mmol/L 136-145 [facility] Absolute neutrophil countOrd ered By: Rodrigue Leifkalina on 08-18-2024 Neutrophils (Bld) [#/Vol] 3.4 10*3/uL 2.0-7.7 [facility] Basophil percentageOrdered B y: Arenmaryann Yadavkalina on 08-18-2024 Basophils/100 WBC (Bld) 0.8 % 0-1 [facility] Blood urea nitrogen (BUN)/cr eatinine ratioOrdered By: Dwaynenaveed Yadavjaspreetlexie on 08-18-2024 Urea nitrogen/Creatinine [Mass ratio] 29.6 mg/mg High 10-20 [facility] Carbon dioxide measurementOr dered By: Dwaynejessicajarred Leifjaspreetlexie on 08-18-2024 CO2 [Moles/Vol] 24.0 mmol/L 21.0-32.0 [facility] Chloride measurementOrdered By: Dwaynenaveed Yadavjaspreetlexie on 08-18-2024 Chloride [Moles/Vol] 110 mmol/L High 98-107 [facility] Eosinophil percentageOrdered By: Rodrigue Leifjaspreetlexie on 08-18-2024 Eosinophils/100 WBC (Bld) 6.2 % High 0-5 [facility] Erythrocyte distribution wid th (RBC) [Ratio]Ordered By: Rodrigue Saldaña on 08-18-2024 Erythrocyte distribution width (RBC) [Entitic vol] 52.5 fL High 35.1-43.9 [facility] Erythrocyte distribution wid th ratioOrdered By: Rodrigue Saldaña on 08-18-2024 Erythrocyte distribution width (RBC) [Ratio] 16.1 % High 11.6-14.6 [facility] Estimated glomerular filtrat ion rate (GFR) AmericanOrdered By: Rodrigue Saldaña on 08-18-2024 Estimated GFR (MDRD) Amer 53 mL/min Low >60 [facility] Comment on above: GFR Calc Glomerular filtration rate ( GFR) estimationOrdered By: Rodrigue Saldaña on 08-18-2024 Estimated GFR (MDRD) Non-Af Amer 43 mL/min Low >60 [facility] Comment on above: Non- GFR Calc Glucose measurementOrdered B y: Rodrigue Saldaña on 08-18-2024 Glucose [Mass/Vol] 86 mg/dL 74-106 [facility] Hematocrit Auto (Bld) [Volum e fraction]Ordered By: Rodrigue Saldaña on 08-18-2024 Hematocrit (Bld) [Volume fraction] 40.1 % 37-47 [facility] Hemoglobin measurementOrdere d By: Rodrigue Saldaña on 08-18-2024 Hemoglobin (Bld) [Mass/Vol] 12.5 g/dL 12.0-15.0 [facility] Immature granulocytes/100 WB C Auto (Bld)Ordered By: Teanew egyptmaryann Saldaña on 08-18-2024 Immature granulocytes/100 WBC (Bld) 0.300 % 0.0-0.9 [facility] Comment on above: IG% - Immature Granu locytes (promyelocytes, myelocytes and metamyelocytes) > 1% indicates that a LEFT SHIFT is Present. Lymphocytes Auto (Unsp spec) [#/Vol]Ordered By: Rodrigue Saldaña on 08-18-2024 Lymphocytes (Bld) [#/Vol] 1.70 10*3/uL 0.83-4.51 [facility] Lymphocytes/100 WBC Auto (Un sp spec)Ordered By: Rodrigue Saldaña on 08-18-2024 Lymphocytes/100 WBC (Bld) 27.7 % 19-41 [facility] MCV (mean corpuscular volume ) determinationOrdered By: Rodrigue Saldaña on 08-18-2024 MCV (RBC) [Entitic vol] 90.5 fL 81-99 [facility] Mean corpuscular hemoglobin (MCH) determinationOrdered By: Rodrigue Saldaña on 08-18-2024 MCH (RBC) [Entitic mass] 28.2 pg 27.0-32.0 [facility] Mean corpuscular hemoglobin concentration (MCHC) determinationOrdered By: Rodrigue Saldaña on 08-18-2024 MCHC (RBC) [Mass/Vol] 31.2 g/dL Low 32-36 [facility] Mean platelet volume determi nationOrdered By: Rodrigue Saldaña on 08-18-2024 Platelet mean volume (Bld) [Entitic vol] 10.4 fL 6.2-12.0 [facility] Monocyte percentageOrdered B y: Rodrigue Saldaña on 08-18-2024 Monocytes/100 WBC (Bld) 9.0 % 0-10 [facility] Neutrophil percentageOrdered By: Rodrigue Saldaña on 08-18-2024 Neutrophils/100 WBC (Bld) 56.0 % 47-70 [facility] Nucleated red blood cell per centageOrdered By: Rodrigue Saldaña on 08-18-2024 Nucleated RBC/100 WBC (Bld) [Ratio] 0 % 0-5 [facility] Platelet countOrdered By: Dwayne Saldaña on 08-18-2024 Platelets (Bld) [#/Vol] 153 10*3/uL 150-450 [facility] Potassium measurementOrdered By: Rodrigue Saldaña on 08-18-2024 Potassium [Moles/Vol] 3.9 mmol/L 3.5-5.1 [facility] RBC Auto (Bld) [#/Vol]Ordere d By: Rodrigue Saldaña on 08-18-2024 RBC (Bld) [#/Vol] 4.43 10*6/uL 4.2-5.4 [facility] Serum anion gap measurementO rdered By: Rodrigue Saldaña on 08-18-2024 Anion gap [Moles/Vol] 8 mmol/L 5-15 [facility] Serum or plasma calcium murali urement (mass/volume)Ordered By: Rodrigue Saldaña on 08-18-2024 Calcium [Mass/Vol] 9.1 mg/dL 8.5-10.1 [facility] Serum or plasma creatinine m easurement (mass/volume)Ordered By: Rodrigue Saldaña on 08-18-2024 Creatinine [Mass/Vol] 1.25 mg/dL High 0.55-1.02 [facility] Comment on above: The validity of the calculated GFR & GFRAA in patients over 70 years has not been determined. Clinical correlation is essential. Serum or plasma urea nitroge n measurement (mass/volume)Ordered By: Rodrigue Saldaña on 08-18-2024 Urea nitrogen [Mass/Vol] 37 mg/dL High 7-18 [facility] Sodium levelOrdered By: Tea Saldaña on 08-18-2024 Sodium [Moles/Vol] 142 mmol/L 136-145 [facility] White blood cell (WBC) count Ordered By: Rodrigue Saldaña on 08-18-2024 WBC (Bld) [#/Vol] 6.1 10*3/uL 4.4-11.0 [facility] Stress Reporton 07-31-2024 Stress Report [facility] [address] [place] [address] MR#: [id number] Acct: [id number] Name: YAA WARD Rep #: [id number] : 1940 84 From: Osvaldo Kuhn MD Primary Care: Dr. Rodrigue Saldaña MD Status: REG I Referring Dr: Osvaldo Kuhn MD Sex: F [...] of 66%. This note was generated with AngelList[employer] software. It may contain incorrect words, spelling, and punctuation that were not noted in checking the note before signing. 07/31/24 1233 Date Osvaldo Kuhn MD CC: Dr. Osvaldo Kuhn MD; Dr. Rodrigue Saldaña MD Date Dictated: 07/31/24 1231 Date Transcribed: 07/31/241230 Pattern Grader: SHAUNA Signed Normal [facility] 12 Lead EKG performed by [facility] on 07-21-2024 12 Lead EKG performed by [address] [address] 12 Lead EKG performed by [facility] 07/21/24 0758 MR#: [id number] Acct: [id number] Name: YAA WARD Rep #: [id number] : 1940 84 From: Osvaldo Kuhn MD Attending Dr: Dr. Osvaldo Kuhn MD Status: DEP AMB Ordering Dr: Osvaldo Kuhn MD Date: 07/21/24 [place] [facility] Sex: F C Admitted: [facility]/12 Lead EKG performed by [facility] ECG Report Interpretation ---Sinus Rhythm - frequent PAC s # PACs = 2.Voltage criteria for LVH (R(I)+S(III) exceeds 2.50 mV) -Voltage criteria w/o ST/T abnormality may be normal. -consider old anterior infarct. ABNORMAL Electronically signed on 10/06/2024 at 11:[address] Osvaldo Kuhn [employer] Version 8610 10/06/24 1110 Date Osvaldo Kuhn MD CC: Dr. Rodrigue Saldaña MD Date Dictated: 07/21/24757 Date Transcribed: 07/21/24757 Pattern Grader: SHAUNA Signed Normal [facility] Cardiology Visit Reporton Cardiology Visit Report [facility] [place] [address] [facility]. [address] [place] [address] OFFICE VISIT Date of Service: 07/21/24 MR#: [id number] Acct: [id number] Name: YAA WARD Rep #: [id number] : 1940 Provider: Dr. Osvaldo Kuhn MD Age/Sex: 84/F Location: [facility] Status: Signed HPI HPI History of Present [...] Source NIBP Intake Visit Reasons: CP (ALEXIS) [employer] Spr[employer] Required: No Accompanied by: Caregiver Is patient in pain?: No Allergies clindamycin Allergy (Unknown, Unverified 07/21/24 11:41) Rash/Itching morphine Allergy (Unknown, Unverified 07/21/24 11:41) GI Upset, Vomiting Penicillins Allergy (Unknown, Unverified 07/21/24 11:41) Rash Nsusfuh-PJZ-IfK Reductase Inhibitor Allergy (Unknown, Unverified 07/21/24 11:41) [...] you fallen in the past year?: No [facility] Medical History Age-related nuclear cataract, unspecified [...] elsewhere classif (more content not included)... Normal [facility] CNCOon 04-24-2024 CNCO Letter Text Normal [facility] CNOVon 04-24-2024 CNOV Office Visit (GSTNOR ) YAA WARD ([id number]) 1940 F NFR Date Time Provider Department 04/24/24 11:20 AM DUC PAYAN GSTNOR During your visit today, we recorded the following information about you: Pulse Blood pressure Weight Height 64/minute 148/92 115.7 kg 1.575 m Duc Payan, TELESERVICES REPRESENTATIVE.CLOUD ARCHITECT 04/24/2024 12:25 PM Signed CHIEF COMPLAINT: Patient presents with: Garcia's Esophagus : Voice change Constipation: Bloating This consult was requested by No ref. provider found for an opinion regarding garcia's esophagus. My final recommendations will be communicated to the requesting health care provider by way of the shared medical record for internal providers or letter via the [employer] for external providers. HPI: Yaa Ward is [...] dysfunctional uterine bleeding Allergies: ALLERGIES Allergen Reactions Qrjjlgh-Ngj-Wrw Red* Other: See Comments Lethargic, and muscle [...] 1 tablet by mouth once daily. vit C,A-Rw-lagje-lutein-aeysha zack (PRESERVISION AREDS-2) 250-90-40-1 mg Take by [...] 12.5 m (more content not included)... Normal [facility] CNOVon 03-11-2024 CNOV Office Visit (FAMPTW ) YAA WARD ([id number]) 1940 F NFR Date Time Provider Department 03/11/24 10:20 AM DELISA ESTRELLA FAMPTW During your visit today, we recorded the following information about you: Pulse Blood pressure Weight Height 67/minute 117/64 115.7 kg 1.575 m Delisa Estrella DO 03/16/2024 9:28 PM Signed Yaa Sylvia is a 83 year old female presenting for evaluation Patient is wishing to reestablish care-she recently moved to [facility] Last office visit with me was on 03/01/2021 Pt currently lives at an assisted living facility " [facility]" in [place] where she follows with a CLOUD ARCHITECT and with PCP Dr Saldaña. I have [...] Dr Rojas. Previous PCP Dr Ragsdale (in [place]) retired 2 yrs ago New PCP Dr Saldaña at [facility] States has only met the physician on time. Follows most of the time with NEERAJ Noa at [facility]: at her Assisted living facility - [...] Protonix 40 mg daily dose Since in [place] she has not seen a GI as advised that there is no GI provider in [place]. After discussion I did place a call and found closest GI provider in [facility] in [place] Phone number: [phone] Rosario Pt aware and will try to schedule an appt. Pt is aware that I did speak with nursing supervisore Saba at [facility]. DENIES: fever, chills, weight changes, night sweats, [...] Tobacco comments: (more content not included)... Normal [facility] Neda 03-11-2024 LIZ Telephone (FAMPTW) SYLVIA,YAA ([id number]) 1940 F NFR Date Time Provider Department 03/11/24 DELISA ESTRELLA During your visit today, we recorded the following information about you: Emekalawson Ariela 03/11/2024 10:12 AM Signed Saba with [facility] is calling Delisa Estrella DO today with concern regarding appointment today. Patient lives in a facility right now and the manager baby of the facility is calling and states [...] of symptoms: N/A Any questions, please call [phone] Closing statement: Results or non-symptom based questions: Thank you for calling [facility], your call will be returned within the next business day. Ariela Delisa Zuñiga DO 03/12/2024 2:16 PM Signed Spoke to [...] As of Date: 03/11/2024 Noted Allergy Reaction [id number] REDUCTASE INHIBIT*01/23/2012 14 - Other: See Comments Comments: Lethargic, and muscle and joint pain CLINDAMYCIN 01/17/2012 2 - Rash 9 - Itching MORPHINE 06/11/2012 8 - GI Upset 11 - Vomiting PENICILLINS 02/22/2004 2 - Rash PERCOCET (OXYCODONE-ACETAMINOPHE N)01/17/2016 5 - Intolerance SULFA (SULFONAMIDE ANTIBIOTICS) 02/22/2004 14 - Other: See Comments Comments: thrush Date Reviewed: 03/11/2024 Reviewed by: Urbano, Loretta, MA - Fully Assessed Reason for Visit: [...] tablet by mouth once daily. - vit C,Z-Wp-dlmpc-lutein-ayesha zack (PRESERVISION AREDS-2) 250-90-40-1 mg Take by [...] 2,000 Units by mouth once daily. - Elkins-3 Fatty Acids-Vitamin E (FISH OIL) 1,000 mg [...] Cervical spondyl (more content not included)... Normal [facility] CNPNon 12-17-2023 CNPN Telephone (FAMPTW) YAA WARD ([id number]) 1940 F NFR Date Time Provider Department 12/17/23 DELISA ESTRELLA During your visit today, we recorded the following information about you: [place] Reena Mendieta 12/17/2023 3:38 PM Signed Yaa is calling [...] calling: self Call patient at: at home [phone] (home) [phone] (cell) Was an appointment scheduled: No Closing statement: Results or non-symptom based questions: Thank you for calling [facility], your call will be returned within the next business day. Mary Lou Prince MA 12/17/2023 3:46 PM Signed Please see message below and advise. Kay Cummins 12/19/2023 12:[address] Estrella advised she would accept patient back to re-establish care. Tried to reach patient at both numbers listed in Epic. Was connected with [facility] and advised that we need to contact Ariadna at [phone], who handles all patient scheduling and transport. Called number above and was unable to leave message. Will follow up to offer patient appointment on 02/07/2024 at 12:[address] Estrella. Kay Cummins 12/20/2023 8:43 AM Signed Patient called back and is scheduled on 03/11/24. Allergies As of Date: 12/17/2023 Noted Allergy Reaction [id number] REDUCTASE INHIBIT*01/23/2012 14 - Other: See Comments [...] tablet by mouth once daily. - vit C,K-Wb-hncwg-lutein-ayesha zack (PRESERVISION AREDS-2) 250-90-40-1 mg Take by [...] 2,000 Units by mouth once daily. - Elkins-3 Fatty Acids-Vitamin E (FISH OIL) 1,000 mg [...] 02/17/2021 Cervicalgia (more content not included)... Normal [facility] ANES POSTPROC EVALon 024 ANES POSTPROC EVAL HNO ID: [id number] Author: AMAN MCCALLUM MD Service: ? Author Type: Anesthesiologist Type: Anesthesia Postprocedure Evaluation Filed: 12/06/2023 11:16 Note Text: POST ANESTHESIA EVALUATION NOTE : 1940 Procedure Summary Date: 12/06/23 Room / Location: [address] Anesthesia Start: 821 Anesthesia Stop: 841 [...] December 06, 2023 TIME: 11:16 AM CSN: [id number] Normal [facility] ANES PRE-OPon 12-06-2023 ANES PRE-OP HNO ID: [id number] Author: AMAN MCCALLUM MD Service: ? Author Type: Anesthesiologist Type: Anesthesia Preprocedure Evaluation Filed: 12/06/2023 08:12 Note Text: ANESTHESIOLOGY DAY OF SURGERY NOTE : 1940 Procedure Information Date/Time: 12/06/23 0845 Procedures: PHACOEMULSIFICATION CATARACT IMPLANT INTRAOCULAR LENS W/O ENDOSCOPIC CYCLOPHOTOCOAGULATION (Left: Eye) OPHTHALMIC BIOMETRY BY PARTIAL COHERENCE INTERFEROMETRY W/INTRAOCULAR LENS POWER CALCULATION (Left: Eye) Location: [place] [address] / [facility] Surgeons: Vinod Rojas MD Estimated [...] and consent discussed: yes. Patient / Responsible Libertarian agrees to proceed: yes Patient / Surrogate [...] tablet by mouth once daily. - vit C,F-Wp-hldhi-lutein-ayesha zack (PRESERVISION AREDS-2) 250-90-40-1 mg Take by [...] 2,000 Units by mouth once daily. - Elkins-3 Fatty Acids-Vitamin E (FISH OIL) 1,000 mg [...] December 06, 2023 TIME: 8:11 AM CSN: [id number] Normal [facility] OPERATIVE NOon 12-06-2023 OPERATIVE NO HNO ID: [id number] Author: VINOD ROJAS MD Service: Ophthalmology Author Type: Physician Type: Operative Report Filed: 12/06/2023 08:45 Note Text: [facility] OPERATIVE REPORT Log ID: [id number] Surgery/Procedure Date: 12/06/2023 Name: Yaa Sylvia [facility] #: [id number] Age: [age] year old Surgeon(s)/Proceduralis t(s) and Check Viewer(s): Surgeon(s) and Role: * Vinod Rojas MD [...] Implant Name Type Inv. Item Serial No. Software Development Leader Lot No. LRB No. Used Action Model No. CCA0T0.225 [facility] [employer] - [id number] Intraocular Lens CCA0T0.225 [employer] [facility] [employer] [id number] [employer] Left 1 Implanted [id number] [...] December 06, 2023 Time: 8:45 AM Normal [facility] Laboratory - Chemistry and C hemistry - challengeOrdered By: Rodrigue Saldaña on 12-05-2023 Cobalamin (Vitamin B12) [Mass/Vol] 1190 pg/mL 211-911 [facility] ANES POSTPROC EVALon 024 ANES POSTPROC EVAL HNO ID: [id number] Author: AMAN MCCALLUM MD Service: ? Author Type: Anesthesiologist Type: Anesthesia Postprocedure Evaluation Filed: 11/22/2023 14:45 Note Text: POST ANESTHESIA EVALUATION NOTE : 1940 Procedure Summary Date: 11/22/23 Room / Location: [address] Anesthesia Start: 1159 Anesthesia Stop: 1236 [...] with this procedure. Documented by Anders Krishnan APRN.INSTRUMENT TECHNICIAN HELPER 11/22/2023 12:38 PM EDT SIGNATURE: Aman Mccallum MD PATIENT NAME: Yaa Ward DATE: November 22, 2023 TIME: 2:45 PM CSN: [id number] Normal [facility] ANES PRE-OPon 11-22-2023 ANES PRE-OP HNO ID: [id number] Author: AMAN MCCALLUM MD Service: ? Author Type: Anesthesiologist Type: Anesthesia Preprocedure Evaluation Filed: 11/22/2023 11:46 Note Text: ANESTHESIOLOGY DAY OF SURGERY NOTE : 1940 Procedure Information Date/Time: 11/22/23 1131 Procedures: PHACOEMULSIFICATION CATARACT IMPLANT INTRAOCULAR LENS W/O ENDOSCOPIC CYCLOPHOTOCOAGULATION (Right: Eye) OPHTHALMIC BIOMETRY BY PARTIAL COHERENCE INTERFEROMETRY W/INTRAOCULAR LENS POWER CALCULATION (Right: Eye) Location: [place] [address] / [facility] Surgeons: Vinod Rojas MD Estimated [...] and consent discussed: yes. Patient / Responsible Libertarian agrees to proceed: yes Patient / Surrogate [...] tablet by mouth once daily. - vit C,O-Fl-zjoua-lutein-ayesha zack (PRESERVISION AREDS-2) 250-90-40-1 mg Take by [...] 1 tablet by mouth once daily. - Elkins-3 Fatty Acids-Vitamin E (FISH OIL) 1,000 mg [...] November 22, 2023 TIME: 11:46 AM CSN: [id number] Normal [facility] PRE-OP HNO ID: [id number] Author: AMAN MCCALLUM MD Service: ? Author Type: Anesthesiologist Type: Anesthesia Preprocedure Evaluation Filed: 11/22/2023 11:24 Note Text: ANESTHESIOLOGY DAY OF SURGERY NOTE : 1940 Procedure Information Date/Time: 11/22/23 1131 Procedures: PHACOEMULSIFICATION CATARACT IMPLANT INTRAOCULAR LENS W/O ENDOSCOPIC CYCLOPHOTOCOAGULATION (Right: Eye) OPHTHALMIC BIOMETRY BY PARTIAL COHERENCE INTERFEROMETRY W/INTRAOCULAR LENS POWER CALCULATION (Right: Eye) Location: [place] [address] / [facility] Surgeons: Vinod Rojas MD Estimated [...] and consent discussed: yes. Patient / Responsible Libertarian agrees to proceed: yes Patient / Surrogate [...] tablet by mouth once daily. - vit C,C-Xs-xmncu-lutein-ayesha zack (PRESERVISION AREDS-2) 250-90-40-1 mg Take by [...] 1 tablet by mouth once daily. - Elkins-3 Fatty Acids-Vitamin E (FISH OIL) 1,000 mg [...] November 22, 2023 TIME: 11:24 AM CSN: [id number] Normal [facility] OPERATIVE NOon 11-22-2023 OPERATIVE NO HNO ID: [id number] Author: VINOD ROJAS MD Service: Ophthalmology Author Type: Physician Type: Operative Report Filed: 11/22/2023 12:35 Note Text: [facility] OPERATIVE REPORT Log ID: [id number] Surgery/Procedure Date: 11/22/2023 Name: [facility] #: [id number] Age: [age] year old Surgeon(s)/Proceduralis t(s) and Check Viewer(s): Surgeon(s) and Role: * Vinod Rojas MD [...] Implant Name Type Inv. Item Serial No. Software Development Leader Lot No. LRB No. Used Action Model No. CCA0T0.225 [employer] - [id number] Intraocular Lens CCA0T0.225 [employer] [facility] [employer] [id number] [employer] Right 1 Implanted CCA0T0.225 [...] November 22, 2023 Time: 12:32 PM Normal [facility] Neda 11-20-2023 CNPJose Telephone (OPHTBE) YAA WARD ([id number]) 1940 F NFR Date Time Provider Department 11/20/23 VINOD ROJAS During your visit today, we recorded the following information about you: Patience Lin 11/22/2023 9:33 AM Addendum [facility] where Pt resides asked that any RX or speical instruction and rX orders post op instructions to be faxed to them at [phone] to her floor which is [facility]: (To contact the nurse ph no is ) Allergies As of Date: 11/20/2023 Noted Allergy Reaction [id number] REDUCTASE INHIBIT*01/23/2012 14 - Other: See Comments [...] Reason for Visit: FORWARD ALL ORDERS TO [facility] [Other] Patient Update [1234] Prescriptions as of 11/28/2023 - hydroCHLOROthiazide 25 mg tablet Take 25 mg by mouth once daily. - pregabalin (LYRICA) 100 mg capsule Take 100 mg by mouth three times a day. - vibegron (GEMTESA) 75 mg tablet Take 1 tablet by mouth once daily. - vit C,G-Xa-cwwec-lutein-ayesha zack (PRESERVISION AREDS-2) 250-90-40-1 mg Take by [...] 2,000 Units by mouth once daily. - Elkins-3 Fatty Acids-Vitamin E (FISH OIL) 1,000 mg [...] 05/14/2021 Fatigu (more content not included)... [facility] Basophil percentageOrdered B y: Arenmaryann Piper on 10-24-2023 Cholesterol [Mass/Vol] 151 mg/dL <200 [facility] Comment on above: <200 mg/dL Desirable 200-240 mg/dL Borderline >240 mg/dL High Risk Triglyceride [Mass/Vol] 92 mg/dL <199 [facility] Comment on above: The drugs N-Acetylcy steine and Metamizole may falsely depress this assay.Serum Triglycerides Reference Interval Normal <150 mg/dL Borderline high 150 - 199 mg/dL High 200 - 499 mg/dL Very High > or = 500 mg/dL Laboratory - Chemistry and C hemistry - challengeOrdered By: Rodrigue Saldaña on 10-24-2023 Cholesterol in HDL [Mass/Vol] 53 mg/dL >40 [facility] Comment on above: The drugs N-Acetylcy steine and Metamizole may falsely depress this assay. Reference Range HDL <40 mg/dL Low HDL Cholesterol HDL >or= 60 mg/dL High HDL Cholesterol Cholesterol in LDL [Mass/Vol] 80 mg/dL 0-130 [facility] No Panel InformationOrdered By: Rodrigue Saldaña on 10-24-2023 VLDL Cholesterol 18 mg/dL 5-40 [facility] CNPNon 10-12-2023 CNPN Telephone (OPHTBE) YAA WARD ([id number]) 1940 F NFR Date Time Provider Department 10/12/23 VINOD ROJAS During your visit today, we recorded the following information about you: [facility], [place] 10/12/2023 11:08 AM Signed [facility] returned call to set up surgery. Please call again at [phone] [facility], [place] 10/12/2023 5:03 PM Signed Taken care of. spoke to production scheduler. Allergies As of Date: 10/12/2023 Noted Allergy Reaction [id number] REDUCTASE INHIBIT*01/23/2012 14 - Other: See Comments [...] 2,000 Units by mouth once daily. - Elkins-3 Fatty Acids-Vitamin E (FISH OIL) 1,000 mg [...] Fatigue [R53.83] 05/15/2021 Encounter Status:Closed by KELSEY GARZA on 10/12/23 Normal [facility] Laboratory - Chemistry and C hemistry - challengeOrdered By: Rodrigue Saldaña on 09-12-2023 Cobalamin (Vitamin B12) [Mass/Vol] 881 pg/mL 211-911 [facility] Absolute lymphocyte countOrd ered By: Regine Morales on 07-20-2023 Lymphocytes Auto (Unsp spec) [#/Vol] 2.27 10*3/uL 0.83-4.51 [facility] Basophil percentageOrdered B y: Regine Morales on 07-20-2023 Basophils/100 WBC (Bld) 0.8 % 0-1 [facility] Chloride [Moles/Vol] 106 mmol/L 98-107 [facility] Cholesterol [Mass/Vol] 138 mg/dL <200 [facility] Comment on above: <200 mg/dL Desirable 200-240 mg/dL Borderline >240 mg/dL High Risk Eosinophils/100 WBC (Bld) 3.9 % 0-5 [facility] Glucose [Mass/Vol] 92 mg/dL 74-106 [facility] Neutrophils (Bld) [#/Vol] 2.3 10*3/uL 2.0-7.7 [facility] Neutrophils/100 WBC (Bld) 43.7 % 47-70 [facility] Potassium [Moles/Vol] 3.5 mmol/L 3.5-5.1 [facility] Sodium [Moles/Vol] 142 mmol/L 136-145 [facility] Triglyceride [Mass/Vol] 105 mg/dL <199 [facility] Comment on above: The drugs N-Acetylcy steine and Metamizole may falsely depress this assay.Serum Triglycerides Reference Interval Normal <150 mg/dL Borderline high 150 - 199 mg/dL High 200 - 499 mg/dL Very High > or = 500 mg/dL WBC (Bld) [#/Vol] 5.3 10*3/uL 4.4-11.0 [facility] Blood erythrocytes count (nu mber/volume)Ordered By: Regine Morales on 07-20-2023 RBC (Bld) [#/Vol] 4.51 10*6/uL 4.2-5.4 [facility] Blood hemoglobin measurement (mass/volume)Ordered By: Regine Morales on 07-20-2023 Hemoglobin (Bld) [Mass/Vol] 13.4 g/dL 12.0-15.0 [facility] Blood lymphocytes/100 leukoc ytesOrdered By: Regine Morales on 07-20-2023 Lymphocytes/100 WBC (Bld) 42.6 % 19-41 [facility] Blood monocytes/100 leukocyt esOrdered By: Regine Morales on 07-20-2023 Monocytes/100 WBC (Bld) 8.8 % 0-10 [facility] Blood platelet mean volumeOr dered By: Regine Morales on 07-20-2023 Platelet mean volume (Bld) [Entitic vol] 10.4 fL 6.2-12.0 [facility] Determination of erythrocyte mean corpuscular volume (MCV)Ordered By: Regine Morales on 07-20-2023 MCV (RBC) [Entitic vol] 92.7 fL 81-99 [facility] Hematocrit Auto (Bld) [Volum e fraction]Ordered By: Regine Morales on 07-20-2023 Hematocrit (Bld) [Volume fraction] 41.8 % 37-47 [facility] Laboratory - Chemistry and C hemistry - challengeOrdered By: Regine Morales on 07-20-2023 CO2 [Moles/Vol] 27.0 mmol/L 21.0-32.0 [facility] Urea nitrogen/Creatinine [Mass ratio] 34.5 mg/mg 10-20 [facility] Laboratory - Hematology and Cell countsOrdered By: Regine Morales on 07-20-2023 Erythrocyte distribution width (RBC) [Entitic vol] 51.7 fL 35.1-43.9 [facility] Erythrocyte distribution width (RBC) [Ratio] 15.1 % 11.6-14.6 [facility] Immature granulocytes/100 WBC (Bld) 0.200 % 0.0-0.9 [facility] Comment on above: IG% - Immature Granu locytes (promyelocytes, myelocytes and metamyelocytes) > 1% indicates that a LEFT SHIFT is Present. MCH (RBC) [Entitic mass] 29.7 pg 27.0-32.0 [facility] Nucleated RBC/100 WBC (Bld) [Ratio] 0 % 0-5 [facility] MCHC Auto (RBC) [Mass/Vol]Or dered By: Regine Morales on 07-20-2023 MCHC (RBC) [Mass/Vol] 32.1 g/dL 32-36 [facility] No Panel InformationOrdered By: Regine Morales on 07-20-2023 Estimated GFR (MDRD) Amer 59 mL/min >60 [facility] Comment on above: GFR Calc Estimated GFR (MDRD) Non-Af Amer 49 mL/min >60 [facility] Comment on above: Non- GFR Calc Vitamin D 25-Hydroxy 62.2 ng/mL [facility] Comment on above: Vitamin D 25(OH) Sta tus Range Deficiency <20 ng/mL (50nmol/L) Insufficiency 20 - 30 ng/mL (50 - 75 nmol/L) Sufficiency 30 - 100 ng/mL (75 - 250 nmol/L) Toxicity >100 ng/mL (>250 nmol/L) Platelets bldOrdered By: Serafin Morales on 07-20-2023 Platelets (Bld) [#/Vol] 159 10*3/uL 150-450 [facility] Serum or plasma calcium murali urement (mass/volume)Ordered By: Regine Morales on 07-20-2023 Calcium [Mass/Vol] 8.8 mg/dL 8.5-10.1 [facility] Serum or plasma cholesterol in HDL measurement (mass/volume)Ordered By: Regine Morales on 07-20-2023 Cholesterol in HDL [Mass/Vol] 51 mg/dL >40 [facility] Comment on above: The drugs N-Acetylcy steine and Metamizole may falsely depress this assay. Reference Range HDL <40 mg/dL Low HDL Cholesterol HDL >or= 60 mg/dL High HDL Cholesterol Serum or plasma cholesterol in VLDL measurement (mass/volume)Ordered By: Regine Morales on 07-20-2023 Cholesterol in VLDL [Mass/Vol] 21 mg/dL 5-40 [facility] Serum or plasma creatinine m easurement (mass/volume)Ordered By: Regine Morales on 07-20-2023 Creatinine [Mass/Vol] 1.13 mg/dL 0.55-1.02 [facility] Comment on above: The validity of the calculated GFR & GFRAA in patients over 70 years has not been determined. Clinical correlation is essential. Serum or plasma low density lipoprotein (LDL) cholesterol measurement (mass/volume)Ordered By: Regine Morales on 07-20-2023 Cholesterol in LDL [Mass/Vol] 66 mg/dL 0-130 [facility] Serum or plasma urea nitroge n measurement (mass/volume)Ordered By: Regine Morales on 07-20-2023 Urea nitrogen [Mass/Vol] 39 mg/dL 7-18 [facility] Thin prep Papanicolaou smear with manual screeningOrdered By: Regine Morales on 07-20-2023 Thin prep Papanicolaou smear with manual screening 9 5-15 [facility] Basophil percentageOrdered B y: Rodrigue Saldaña on 07-13-2023 Potassium [Moles/Vol] 3.6 mmol/L 3.5-5.1 [facility] Absolute lymphocyte countOrd ered By: Sacul Living on 07-05-2023 Lymphocytes Auto (Unsp spec) [#/Vol] 2.48 10*3/uL 0.83-4.51 [facility] Basophil percentageOrdered B y: Sacul Living on 07-05-2023 Basophils/100 WBC (Bld) 0.6 % 0-1 [facility] Bilirubin [Mass/Vol] 0.50 mg/dL 0.20-1.00 [facility] Comment on above: For patients on eltr ombopag therapy, use of Dimension [place] TBIL is not recommended. Chloride [Moles/Vol] 108 mmol/L 98-107 [facility] Eosinophils/100 WBC (Bld) 3.5 % 0-5 [facility] Glucose [Mass/Vol] 97 mg/dL 74-106 [facility] Neutrophils (Bld) [#/Vol] 3.5 10*3/uL 2.0-7.7 [facility] Neutrophils/100 WBC (Bld) 50.4 % 47-70 [facility] Potassium [Moles/Vol] 3.4 mmol/L 3.5-5.1 [facility] Protein [Mass/Vol] 7.2 g/dL 6.4-8.2 [facility] Sodium [Moles/Vol] 142 mmol/L 136-145 [facility] WBC (Bld) [#/Vol] 6.9 10*3/uL 4.4-11.0 [facility] Blood erythrocytes count (nu mber/volume)Ordered By: [facility] on 07-05-2023 RBC (Bld) [#/Vol] 4.42 10*6/uL 4.2-5.4 [facility] Blood hemoglobin measurement (mass/volume)Ordered By: [facility] on 07-05-2023 Hemoglobin (Bld) [Mass/Vol] 13.3 g/dL 12.0-15.0 [facility] Blood lymphocytes/100 leukoc ytesOrdered By: [facility] on 07-05-2023 Lymphocytes/100 WBC (Bld) 36.2 % 19-41 [facility] Blood monocytes/100 leukocyt esOrdered By: [facility] on 07-05-2023 Monocytes/100 WBC (Bld) 8.9 % 0-10 [facility] Blood platelet mean volumeOr dered By: [facility] on 07-05-2023 Platelet mean volume (Bld) [Entitic vol] 9.9 fL 6.2-12.0 [facility] Determination of erythrocyte mean corpuscular volume (MCV)Ordered By: [facility] on 07-05-2023 MCV (RBC) [Entitic vol] 91.6 fL 81-99 [facility] Hematocrit Auto (Bld) [Volum e fraction]Ordered By: [facility] on 07-05-2023 Hematocrit (Bld) [Volume fraction] 40.5 % 37-47 [facility] Laboratory - Chemistry and C hemistry - challengeOrdered By: Sacul Living on 07-05-2023 ALP [Catalytic activity/Vol] 88 U/L 45-117 [facility] ALT [Catalytic activity/Vol] 22 U/L 13-56 [facility] CO2 [Moles/Vol] 25.0 mmol/L 21.0-32.0 [facility] Cobalamin (Vitamin B12) [Mass/Vol] 207 pg/mL 211-911 [facility] Globulin (S) [Mass/Vol] 3.9 g/dL 2.2-4.2 [facility] Urea nitrogen/Creatinine [Mass ratio] 51.8 mg/mg 10-20 [facility] Laboratory - Hematology and Cell countsOrdered By: Sacul Living on 07-05-2023 Erythrocyte distribution width (RBC) [Entitic vol] 50.5 fL 35.1-43.9 [facility] Erythrocyte distribution width (RBC) [Ratio] 14.8 % 11.6-14.6 [facility] Immature granulocytes/100 WBC (Bld) 0.400 % 0.0-0.9 [facility] Comment on above: IG% - Immature Granu locytes (promyelocytes, myelocytes and metamyelocytes) > 1% indicates that a LEFT SHIFT is Present. MCH (RBC) [Entitic mass] 30.1 pg 27.0-32.0 [facility] Nucleated RBC/100 WBC (Bld) [Ratio] 0 % 0-5 [facility] MCHC Auto (RBC) [Mass/Vol]Or dered By: Sacul Living on 07-05-2023 MCHC (RBC) [Mass/Vol] 32.8 g/dL 32-36 [facility] No Panel InformationOrdered By: Sacul Living on 07-05-2023 Estimated GFR (MDRD) Amer 61 mL/min >60 [facility] Comment on above: GFR Calc Estimated GFR (MDRD) Non-Af Amer 50 mL/min >60 [facility] Comment on above: Non- GFR Calc Thyroid Stimulating Hormone (TSH) 0.90 uIU/mL 0.358-3.74 [facility] Vitamin D 25-Hydroxy 49.2 ng/mL [facility] Comment on above: Vitamin D 25(OH) Sta tus Range Deficiency <20 ng/mL (50nmol/L) Insufficiency 20 - 30 ng/mL (50 - 75 nmol/L) Sufficiency 30 - 100 ng/mL (75 - 250 nmol/L) Toxicity >100 ng/mL (>250 nmol/L) Platelets bldOrdered By: Jet campos Living on 07-05-2023 Platelets (Bld) [#/Vol] 180 10*3/uL 150-450 [facility] Serum or plasma albumin murali urement (mass/volume)Ordered By: [facility] on 07-05-2023 Albumin [Mass/Vol] 3.3 g/dL 3.2-5.0 [facility] Serum or plasma albumin/glob ulin mass ratioOrdered By: [facility] on 07-05-2023 Albumin/Globulin [Mass ratio] 0.8 {ratio} 0.9-2.4 [facility] Serum or plasma calcium murali urement (mass/volume)Ordered By: [facility] on 07-05-2023 Calcium [Mass/Vol] 8.8 mg/dL 8.5-10.1 [facility] Serum or plasma creatinine m easurement (mass/volume)Ordered By: [facility] on 07-05-2023 Creatinine [Mass/Vol] 1.10 mg/dL 0.55-1.02 [facility] Comment on above: The validity of the calculated GFR & GFRAA in patients over 70 years has not been determined. Clinical correlation is essential. Serum or plasma urea nitroge n measurement (mass/volume)Ordered By: [facility] on 07-05-2023 Urea nitrogen [Mass/Vol] 57 mg/dL 7-18 [facility] Thin prep Papanicolaou smear with manual screeningOrdered By: [facility] on 07-05-2023 Thin prep Papanicolaou smear with manual screening 22 U/L 15-37 [facility] Thin prep Papanicolaou smear with manual screening 9 5-15 [facility] Anaerobic cultureOrdered By: Rodrigue Saldaña on 06-03-2023 Bacteria identified Anaer cx Nom (Unsp spec) No anaerobic bacteria isolated. [facility] Bacteria identified Cx Nom ( Wound)Ordered By: Rodrigue Saldaña on 06-03-2023 Wound Culture Meth. resistant Stap h. aureus [facility] Wound Culture Corynebacterium striatum [facility] Gram stain for investigation of transfusion reactionOrdered By: Efewongbe Oleghe on 06-03-2023 Microscopic observation Gram stain Nom (Unsp spec) [facility] Anaerobic cultureOrdered By: Efewongbe Oleghe on 06-02-2023 Bacteria identified Anaer cx Nom (Unsp spec) No anaerobic bacteria isolated. [facility] Bacteria identified Cx Nom ( Wound)Ordered By: Efewongbe Oleghe on 06-02-2023 Wound Culture Meth. resistant Stap h. aureus [facility] Wound Culture Corynebacterium striatum [facility] Gram stain for investigation of transfusion reactionOrdered By: Efewongbe Oleghe on 06-02-2023 Microscopic observation Gram stain Nom (Unsp spec) [facility] Bacteria identified Cx Nom ( Wound)Ordered By: Efewongbe Oleghe on 05-15-2023 Wound Culture Meth. resistant Stap h. aureus [facility] Wound Culture Kocuria kristinae [facility] Gram stain for investigation of transfusion reactionOrdered By: Efewongbe Leifghe on 05-15-2023 Microscopic observation Gram stain Nom (Unsp spec) [facility] Basophil percentageOrdered B y: Regine Morales on 04-19-2023 Cholesterol [Mass/Vol] 156 mg/dL <200 [facility] Comment on above: <200 mg/dL Desirable 200-240 mg/dL Borderline >240 mg/dL High Risk Triglyceride [Mass/Vol] 205 mg/dL <199 [facility] Comment on above: The drugs N-Acetylcy steine and Metamizole may falsely depress this assay.Serum Triglycerides Reference Interval Normal <150 mg/dL Borderline high 150 - 199 mg/dL High 200 - 499 mg/dL Very High > or = 500 mg/dL Serum or plasma cholesterol in HDL measurement (mass/volume)Ordered By: Regine Morales on 04-19-2023 Cholesterol in HDL [Mass/Vol] 49 mg/dL >40 [facility] Comment on above: The drugs N-Acetylcy steine and Metamizole may falsely depress this assay. Reference Range HDL <40 mg/dL Low HDL Cholesterol HDL >or= 60 mg/dL High HDL Cholesterol Serum or plasma cholesterol in VLDL measurement (mass/volume)Ordered By: Regine Morales on 04-19-2023 Cholesterol in VLDL [Mass/Vol] 41 mg/dL 5-40 [facility] Serum or plasma low density lipoprotein (LDL) cholesterol measurement (mass/volume)Ordered By: Regine Morales on 04-19-2023 Cholesterol in LDL [Mass/Vol] 66 mg/dL 0-130 [facility] Absolute lymphocyte countOrd ered By: Rodrigue Saldaña on 01-17-2023 Lymphocytes Auto (Unsp spec) [#/Vol] 2.14 10*3/uL 0.83-4.51 [facility] Basophil percentageOrdered B y: Rodrigue Saldaña on 01-17-2023 Basophils/100 WBC (Bld) 0.7 % 0-1 [facility] Chloride [Moles/Vol] 109 mmol/L 98-107 [facility] Cholesterol [Mass/Vol] 196 mg/dL <200 [facility] Comment on above: <200 mg/dL Desirable 200-240 mg/dL Borderline >240 mg/dL High Risk Eosinophils/100 WBC (Bld) 3.9 % 0-5 [facility] Glucose [Mass/Vol] 78 mg/dL 74-106 [facility] Neutrophils (Bld) [#/Vol] 2.7 10*3/uL 2.0-7.7 [facility] Neutrophils/100 WBC (Bld) 47.8 % 47-70 [facility] Potassium [Moles/Vol] 3.5 mmol/L 3.5-5.1 [facility] Sodium [Moles/Vol] 144 mmol/L 136-145 [facility] Triglyceride [Mass/Vol] 275 mg/dL <199 [facility] Comment on above: The drugs N-Acetylcy steine and Metamizole may falsely depress this assay.Serum Triglycerides Reference Interval Normal <150 mg/dL Borderline high 150 - 199 mg/dL High 200 - 499 mg/dL Very High > or = 500 mg/dL WBC (Bld) [#/Vol] 5.6 10*3/uL 4.4-11.0 [facility] Blood erythrocytes count (nu mber/volume)Ordered By: Rodrigue Saldaña on 01-17-2023 RBC (Bld) [#/Vol] 4.73 10*6/uL 4.2-5.4 [facility] Blood hemoglobin measurement (mass/volume)Ordered By: Rodrigue Saldaña on 01-17-2023 Hemoglobin (Bld) [Mass/Vol] 13.9 g/dL 12.0-15.0 [facility] Blood lymphocytes/100 leukoc ytesOrdered By: Rodriuge Saldaña on 01-17-2023 Lymphocytes/100 WBC (Bld) 38.4 % 19-41 [facility] Blood monocytes/100 leukocyt esOrdered By: naveed Saldaña on 01-17-2023 Monocytes/100 WBC (Bld) 9.0 % 0-10 [facility] Blood platelet mean volumeOr dered By: Teanew egyptmaryann Saldaña on 01-17-2023 Platelet mean volume (Bld) [Entitic vol] 9.8 fL 6.2-12.0 [facility] Determination of erythrocyte mean corpuscular volume (MCV)Ordered By: Rodrigue Saldaña on 01-17-2023 MCV (RBC) [Entitic vol] 91.5 fL 81-99 [facility] Hematocrit Auto (Bld) [Volum e fraction]Ordered By: Rodrigue Saldaña on 01-17-2023 Hematocrit (Bld) [Volume fraction] 43.3 % 37-47 [facility] Laboratory - Chemistry and C hemistry - challengeOrdered By: Rodrigue Saldaña on 01-17-2023 CO2 [Moles/Vol] 28.0 mmol/L 21.0-32.0 [facility] Urea nitrogen/Creatinine [Mass ratio] 32.4 mg/mg 10-20 [facility] Laboratory - Hematology and Cell countsOrdered By: Rodrigue Saldaña on 01-17-2023 Erythrocyte distribution width (RBC) [Entitic vol] 56.1 fL 35.1-43.9 [facility] Erythrocyte distribution width (RBC) [Ratio] 16.6 % 11.6-14.6 [facility] Immature granulocytes/100 WBC (Bld) 0.200 % 0.0-0.9 [facility] Comment on above: IG% - Immature Granu locytes (promyelocytes, myelocytes and metamyelocytes) > 1% indicates that a LEFT SHIFT is Present. MCH (RBC) [Entitic mass] 29.4 pg 27.0-32.0 [facility] Nucleated RBC/100 WBC (Bld) [Ratio] 0 % 0-5 [facility] MCHC Auto (RBC) [Mass/Vol]Or dered By: Rodrigue Saldaña on 01-17-2023 MCHC (RBC) [Mass/Vol] 32.1 g/dL 32-36 [facility] No Panel InformationOrdered By: Rodrigue Saldaña on 01-17-2023 Estimated GFR (MDRD) Amer 81 mL/min >60 [facility] Comment on above: GFR Calc Estimated GFR (MDRD) Non-Af Amer 67 mL/min >60 [facility] Comment on above: Non- GFR Calc Platelets bldOrdered By: Mikel Saldaña on 01-17-2023 Platelets (Bld) [#/Vol] 125 10*3/uL 150-450 [facility] Serum or plasma calcium murali urement (mass/volume)Ordered By: Rodrigue Saldaña on 01-17-2023 Calcium [Mass/Vol] 9.0 mg/dL 8.5-10.1 [facility] Serum or plasma cholesterol in HDL measurement (mass/volume)Ordered By: Rodrigue Saldaña on 01-17-2023 Cholesterol in HDL [Mass/Vol] 39 mg/dL >40 [facility] Comment on above: The drugs N-Acetylcy steine and Metamizole may falsely depress this assay. Reference Range HDL <40 mg/dL Low HDL Cholesterol HDL >or= 60 mg/dL High HDL Cholesterol Serum or plasma cholesterol in VLDL measurement (mass/volume)Ordered By: Rodrigue Saldaña on 01-17-2023 Cholesterol in VLDL [Mass/Vol] 55 mg/dL 5-40 [facility] Serum or plasma creatinine m easurement (mass/volume)Ordered By: Rodrigue Saldaña on 01-17-2023 Creatinine [Mass/Vol] 0.86 mg/dL 0.55-1.02 [facility] Comment on above: The validity of the calculated GFR & GFRAA in patients over 70 years has not been determined. Clinical correlation is essential. Serum or plasma low density lipoprotein (LDL) cholesterol measurement (mass/volume)Ordered By: Rodrigue Saldaña on 01-17-2023 Cholesterol in LDL [Mass/Vol] 102 mg/dL 0-130 [facility] Serum or plasma urea nitroge n measurement (mass/volume)Ordered By: Rodrigue Saldaña on 01-17-2023 Urea nitrogen [Mass/Vol] 28 mg/dL 7-18 [facility] Thin prep Papanicolaou smear with manual screeningOrdered By: [facility] Yadavlexie on 01-17-2023 Thin prep Papanicolaou smear with manual screening 7 - [facility] Absolute lymphocyte counton 07-20-2022 Lymphocytes Auto (Unsp spec) [#/Vol] 2.22 10*3/uL 0.83-4.51 [facility] Work Phone: Basophil percentageon 2021 Basophils/100 WBC (Bld) 0.7 % 0-1 [facility] Work Phone: Chloride [Moles/Vol] 105 mmol/L 98-107 [facility] Work Phone: Cholesterol [Mass/Vol] 155 mg/dL <200 [facility] Work Phone: [phone] Comment on above: <200 mg/dL Desirable 200-240 mg/dL Borderline >240 mg/dL High Risk Eosinophils/100 WBC (Bld) 5.3 % 0-5 [facility] Work Phone: [phone] Glucose [Mass/Vol] 95 mg/dL 74-106 [facility] Work Phone: [phone] Neutrophils (Bld) [#/Vol] 3.6 10*3/uL 2.0-7.7 [facility] Work Phone: [phone] Neutrophils/100 WBC (Bld) 52.4 % 47-70 [facility] Work Phone: Potassium [Moles/Vol] 3.7 mmol/L 3.5-5.1 [facility] Work Phone: Sodium [Moles/Vol] 143 mmol/L 136-145 [facility] Work Phone: Triglyceride [Mass/Vol] 160 mg/dL <199 [facility] Work Phone: Comment on above: The drugs N-Acetylcy steine and Metamizole may falsely depress this assay.Serum Triglycerides Reference Interval Normal <150 mg/dL Borderline high 150 - 199 mg/dL High 200 - 499 mg/dL Very High > or = 500 mg/dL WBC (Bld) [#/Vol] 6.8 10*3/uL 4.4-11.0 [facility] Work Phone: Blood erythrocytes count (nu mber/volume)on 07-20-2022 RBC (Bld) [#/Vol] 4.66 10*6/uL 4.2-5.4 [facility] Work Phone: Blood hemoglobin measurement (mass/volume)on 07-20-2022 Hemoglobin (Bld) [Mass/Vol] 13.6 g/dL 12.0-15.0 [facility] Work Phone: Blood lymphocytes/100 leukoc yteson 07-20-2022 Lymphocytes/100 WBC (Bld) 32.6 % 19-41 [facility] Work Phone: Blood monocytes/100 leukocyt eson 07-20-2022 Monocytes/100 WBC (Bld) 8.7 % 0-10 [facility] Work Phone: Blood platelet mean volumeon 07-20-2022 Platelet mean volume (Bld) [Entitic vol] 9.8 fL 6.2-12.0 [facility] Work Phone: Determination of erythrocyte mean corpuscular volume (MCV)on 07-20-2022 MCV (RBC) [Entitic vol] 90.3 fL 81-99 [facility] Work Phone: Hematocrit Auto (Bld) [Volum e fraction]on 07-20-2022 Hematocrit (Bld) [Volume fraction] 42.1 % 37-47 [facility] Work Phone: Laboratory - Chemistry and C hemistry - challengeon 07-20-2022 CO2 [Moles/Vol] 26.0 mmol/L 21.0-32.0 [facility] Work Phone: Urea nitrogen/Creatinine [Mass ratio] 22.1 mg/mg 10-20 [facility] Work Phone: Laboratory - Hematology and Cell countson 07-20-2022 Erythrocyte distribution width (RBC) [Entitic vol] 54.7 fL 35.1-43.9 [facility] Work Phone: Erythrocyte distribution width (RBC) [Ratio] 16.7 % 11.6-14.6 [facility] Work Phone: Immature granulocytes/100 WBC (Bld) 0.300 % 0.0-0.9 [facility] Work Phone: Comment on above: IG% - Immature Granu locytes (promyelocytes, myelocytes and metamyelocytes) > 1% indicates that a LEFT SHIFT is Present. MCH (RBC) [Entitic mass] 29.2 pg 27.0-32.0 [facility] Work Phone: Nucleated RBC/100 WBC (Bld) [Ratio] 0 % 0-5 [facility] Work Phone: MCHC Auto (RBC) [Mass/Vol]on 07-20-2022 MCHC (RBC) [Mass/Vol] 32.3 g/dL 32-36 [facility] Work Phone: No Panel Informationon 07-20 Estimated GFR (MDRD) Amer 59 mL/min >60 [facility] Work Phone: Comment on above: GFR Calc Estimated GFR (MDRD) Non-Af Amer 49 mL/min >60 [facility] Work Phone: Comment on above: Non- GFR Calc Vitamin D 25-Hydroxy 54.0 ng/mL [facility] Work Phone: Comment on above: Vitamin D 25(OH) Sta tus Range Deficiency <20 ng/mL (50nmol/L) Insufficiency 20 - 30 ng/mL (50 - 75 nmol/L) Sufficiency 30 - 100 ng/mL (75 - 250 nmol/L) Toxicity >100 ng/mL (>250 nmol/L) Platelets bldon 07-20-2022 Platelets (Bld) [#/Vol] 141 10*3/uL 150-450 [facility] Work Phone: Serum or plasma calcium murali urement (mass/volume)on 07-20-2022 Calcium [Mass/Vol] 8.8 mg/dL 8.5-10.1 [facility] Work Phone: Serum or plasma cholesterol in HDL measurement (mass/volume)on 07-20-2022 Cholesterol in HDL [Mass/Vol] 38 mg/dL >40 [facility] Work Phone: Comment on above: The drugs N-Acetylcy steine and Metamizole may falsely depress this assay. Reference Range HDL <40 mg/dL Low HDL Cholesterol HDL >or= 60 mg/dL High HDL Cholesterol Serum or plasma cholesterol in VLDL measurement (mass/volume)on 07-20-2022 Cholesterol in VLDL [Mass/Vol] 32 mg/dL 5-40 [facility] Work Phone: Serum or plasma creatinine m easurement (mass/volume)on 07-20-2022 Creatinine [Mass/Vol] 1.13 mg/dL 0.55-1.02 [facility] Work Phone: Comment on above: The validity of the calculated GFR & GFRAA in patients over 70 years has not been determined. Clinical correlation is essential. Serum or plasma low density lipoprotein (LDL) cholesterol measurement (mass/volume)on 07-20-2022 Cholesterol in LDL [Mass/Vol] 85 mg/dL 0-130 [facility] Work Phone: Serum or plasma urea nitroge n measurement (mass/volume)on 07-20-2022 Urea nitrogen [Mass/Vol] 25 mg/dL 7-18 [facility] Work Phone: Thin prep Papanicolaou smear with manual screeningon 07-20-2022 Thin prep Papanicolaou smear with manual screening 12 5-15 [facility] Work Phone: Basophil percentageon 2021 Cholesterol [Mass/Vol] 151 mg/dL <200 [facility] Work Phone: Comment on above: <200 mg/dL Desirable 200-240 mg/dL Borderline >240 mg/dL High Risk Potassium [Moles/Vol] 3.3 mmol/L 3.5-5.1 [facility] Work Phone: Triglyceride [Mass/Vol] 178 mg/dL <199 [facility] Work Phone: Comment on above: The drugs N-Acetylcy steine and Metamizole may falsely depress this assay.Serum Triglycerides Reference Interval Normal <150 mg/dL Borderline high 150 - 199 mg/dL High 200 - 499 mg/dL Very High > or = 500 mg/dL Serum or plasma cholesterol in HDL measurement (mass/volume)on 04-19-2022 Cholesterol in HDL [Mass/Vol] 38 mg/dL >40 [facility] Work Phone: Comment on above: The drugs N-Acetylcy steine and Metamizole may falsely depress this assay. Reference Range HDL <40 mg/dL Low HDL Cholesterol HDL >or= 60 mg/dL High HDL Cholesterol Serum or plasma cholesterol in VLDL measurement (mass/volume)on 04-19-2022 Cholesterol in VLDL [Mass/Vol] 36 mg/dL 5-40 [facility] Work Phone: Serum or plasma low density lipoprotein (LDL) cholesterol measurement (mass/volume)on 04-19-2022 Cholesterol in LDL [Mass/Vol] 77 mg/dL 0-130 [facility] Work Phone: Absolute lymphocyte counton 01-31-2022 Lymphocytes Auto (Unsp spec) [#/Vol] 2.30 10*3/uL 0.83-4.51 [facility] Work Phone: Basophil percentageon 2021 Basophils/100 WBC (Bld) 0.5 % 0-1 [facility] Work Phone: [phone] Chloride [Moles/Vol] 108 mmol/L 98-107 [facility]: [phone] Eosinophils/100 WBC (Bld) 4.0 % 0-5 [facility] Work Phone: [phone] Glucose [Mass/Vol] 122 mg/dL 74-106 [facility] Work Phone: [phone] Comment on above: Fasting Glucose resu lt from 100 to 125 mg/dL suggests IMPAIRED HOMEOSTASIS per A.D.A. criteria. Neutrophils (Bld) [#/Vol] 4.0 10*3/uL 2.0-7.7 [facility] Work Phone: Neutrophils/100 WBC (Bld) 55.0 % 47-70 [facility] Work Phone: [phone] Potassium [Moles/Vol] 3.3 mmol/L 3.5-5.1 [facility] Work Phone: [phone] Sodium [Moles/Vol] 141 mmol/L 136-145 [facility] Work Phone: [phone] WBC (Bld) [#/Vol] 7.3 10*3/uL 4.4-11.0 [facility] Work Phone: Blood erythrocytes count (nu mber/volume)on 01-31-2022 RBC (Bld) [#/Vol] 4.29 10*6/uL 4.2-5.4 [facility] Work Phone: [phone] Blood hemoglobin measurement (mass/volume)on 01-31-2022 Hemoglobin (Bld) [Mass/Vol] 12.6 g/dL 12.0-15.0 [facility] Work Phone: [phone] Blood lymphocytes/100 leukoc yteson 01-31-2022 Lymphocytes/100 WBC (Bld) 31.6 % 19-41 [facility] Work Phone: Blood monocytes/100 leukocyt eson 01-31-2022 Monocytes/100 WBC (Bld) 8.6 % 0-10 [facility] Work Phone: Blood platelet mean volumeon 01-31-2022 Platelet mean volume (Bld) [Entitic vol] 9.6 fL 6.2-12.0 [facility] Work Phone: Determination of erythrocyte mean corpuscular volume (MCV)on 01-31-2022 MCV (RBC) [Entitic vol] 90.0 fL 81-99 [facility] Work Phone: Hematocrit Auto (Bld) [Volum e fraction]on 01-31-2022 Hematocrit (Bld) [Volume fraction] 38.6 % 37-47 [facility] Work Phone: Laboratory - Chemistry and C hemistry - challengeon 01-31-2022 CO2 [Moles/Vol] 25.0 mmol/L 21.0-32.0 [facility] Work Phone: Urea nitrogen/Creatinine [Mass ratio] 31.1 mg/mg 10-20 [facility] Work Phone: Laboratory - Hematology and Cell countson 01-31-2022 Erythrocyte distribution width (RBC) [Entitic vol] 52.0 fL 35.1-43.9 [facility] Work Phone: Erythrocyte distribution width (RBC) [Ratio] 15.9 % 11.6-14.6 [facility] Work Phone: Immature granulocytes/100 WBC (Bld) 0.300 % 0.0-0.9 [facility] Work Phone: Comment on above: IG% - Immature Granu locytes (promyelocytes, myelocytes and metamyelocytes) > 1% indicates that a LEFT SHIFT is Present. MCH (RBC) [Entitic mass] 29.4 pg 27.0-32.0 [facility] Work Phone: Nucleated RBC/100 WBC (Bld) [Ratio] 0 % 0-5 [facility] Work Phone: MCHC Auto (RBC) [Mass/Vol]on 01-31-2022 MCHC (RBC) [Mass/Vol] 32.6 g/dL 32-36 [facility] Work Phone: No Panel Informationon 01-31 Estimated GFR (MDRD) Amer 69 mL/min >60 [facility] Work Phone: Comment on above: GFR Calc Estimated GFR (MDRD) Non-Af Amer 57 mL/min >60 [facility] Work Phone: Comment on above: Non- GFR Calc Platelets bldon 01-31-2022 Platelets (Bld) [#/Vol] 139 10*3/uL 150-450 [facility] Work Phone: Serum or plasma calcium murali urement (mass/volume)on 01-31-2022 Calcium [Mass/Vol] 8.6 mg/dL 8.5-10.1 [facility] Work Phone: Serum or plasma creatinine m easurement (mass/volume)on 01-31-2022 Creatinine [Mass/Vol] 1.00 mg/dL 0.55-1.02 [facility] Work Phone: Comment on above: The validity of the calculated GFR & GFRAA in patients over 70 years has not been determined. Clinical correlation is essential. Serum or plasma urea nitroge n measurement (mass/volume)on 01-31-2022 Urea nitrogen [Mass/Vol] 31 mg/dL 7-18 [facility] Work Phone: Thin prep Papanicolaou smear with manual screeningon 01-31-2022 Thin prep Papanicolaou smear with manual screening 8 5-15 [facility] Work Phone: CBCon 05-17-2021 Absolute nRBC <0.01 Normal <0.01 [facility] Erythrocyte distribution width (RBC) [Ratio] 14.8 % Normal 11.5-15.0 [facility] Hematocrit (Bld) [Volume fraction] 39.7 % Normal 36.0-46.0 [facility] Hemoglobin (Bld) [Mass/Vol] 13.1 g/dL Normal 11.5-15.5 [facility] MCH 29.6 pG Normal 26.0-34.0 [facility] MCHC (RBC) [Mass/Vol] 33.0 g/dL Normal 30.5-36.0 [facility] MCV (RBC) [Entitic vol] 89.6 fL Normal 80.0-100.0 [facility] Platelet mean volume (Bld) [Entitic vol] 9.2 fL Normal 9.0-12.7 [facility] Platelets (Bld) [#/Vol] 191 10*3/uL Normal 150-400 [facility] RBC (Bld) [#/Vol] 4.43 10*6/uL Normal 3.90-5.20 [facility] WBC (Bld) [#/Vol] 7.18 10*3/uL Normal 3.70-11.00 [facility] Magnesiumon 05-17-2021 Magnesium [Mass/Vol] 1.9 mg/dL Normal 1.7-2.6 [facility] NURSING PROGon 05-17-2021 NURSING PROG HNO ID: [id number] Author: Kymberly Maldonado RN Service: ? Author Type: Registered Nurse Type: Nursing Progress Note Filed: 05/17/2021 4:33 PM Note Text: Nursing Progress Note Patient Name: Yaa Ward Patient Location: [place] Daily Note: [id number] received report from maintenance technician 2nd shift RN and assumed care. Bedside report and safety checks complete. 1630 called report to nurse Jones at [facility] This note was completed by: Kymberly Maldonado Normal [facility] Renal Function Panelon 05-17 Albumin [Mass/Vol] 3.3 g/dL Low 3.5-5.0 [facility] Anion gap [Moles/Vol] 14 mmol/L Normal 0-15 [facility] Calcium [Mass/Vol] 9.0 mg/dL Normal 8.5-10.2 [facility] Chloride [Moles/Vol] 102 mmol/L Normal 97-105 [facility] CO2 [Moles/Vol] 23 mmol/L Normal 22-30 [facility] Creatinine [Mass/Vol] 0.98 mg/dL High 0.58-0.96 [facility] eGFR- Amer. >60 Normal [facility] eGFR-All Other Races 54 . Normal [facility] Comment on above: Result Comment: eGFR [...] GFR. Glucose [Mass/Vol] 91 mg/dL Normal 74-99 [facility] Phosphate [Mass/Vol] 3.6 mg/dL Normal 2.7-4.8 [facility] Potassium [Moles/Vol] 3.9 mmol/L Normal 3.7-5.1 [facility] Sodium [Moles/Vol] 139 mmol/L Normal 136-144 [facility] Urea nitrogen [Mass/Vol] 26 mg/dL High 7-21 [facility] THERAPY NTon 05-17-2021 THERAPY NT HNO ID: [id number] Author: Delisa Nichole OT/L Service: Occupational Therapy Author Type: Occupational Therapist Type: Therapy (PT/OT/Speech/Resp) Filed: 05/17/2021 11:31 AM Note Text: Occupational Therapy Evaluation SERVICE DATE: 05/17/2021 SERVICE TIME: 951 to 1034 ROOM: [place] [address] Recommended Discharge Disposition: Subacute/SNF Recommended Discharge Disposition [...] Hospital Admission: pt was discharged home from [facility] on 05/15/21 and was admitted to [facility] that same day due to pt's inability to get out of a chair at home. [facility] PT had recommended SNF, which pt declined. [...] Environment Patient Lives With: Self/Alone Assistance Available: motion and time study teacher (privately pay for help 1x/wk) Entry To Home: Elevator Number Of Stairs To Bed/Bath: 0 Tub/Shower Type: tub shower Laundry: in apartment Equipment Owned: Cane;Wheeled Walker;Rollator;Grab Bars-Toilet;Grab Bars-Shower;Shower Chair;Commode-Raised Prior Functional Level: Required Assistance Assistance Required With: Transportation;Shopping Prior Functional Level Comments: Independent cane pt says she manages all her ADLs [...] slightly e (more content not included)... Normal [facility] HISTORY PHYSICALon HISTORY PHYSICAL HNO ID: [id number] Author: Baldo Whitney MD Service: General Internal Medicine Author Type: Physician Type: HANDP Filed: 05/17/2021 2:58 PM Note Text: HISTORY AND PHYSICAL EXAMINATION - INTERNAL MEDICINE PATIENT NAME: Yaa Ward SERVICE DATE: 2021 PRIMARY CARE PHYSICIAN: Delisa Estrella DO ASSESSMENT AND PLAN Malaise and fatigue -PT/OT Diverticulitis -c/w cipro and flagyl till 05/22 HTN CAD HPL GERD SUBJECTIVE CHIEF COMPLAINT: Fatigue HISTORY OF PRESENT ILLNESS: Yaa Ward is an 81 year old female who presents with fatigue and weakness. Patient was recently admitted to [place] with diverticulitis. Therapy recommended rehab at discharge [...] child, joint pain even as a child falltom arches - Uterine fibroid - UTI (urinary [...] POSIFLUSH), 10 mL, INTRAVENOUS, DIRECTED PRN, Gen P Pace, DO acetaminophen (TYLENOL) 325 mg tablet, Take [...] 1,000 unit Tab, (more content not included)... [facility] NURSING PROGon 2021 NURSING PROG HNO ID: [id number] Author: Juliana Arenas RN Service: ? Author Type: Registered Nurse Type: Nursing Progress Note Filed: 2021 7:11 PM Note Text: Nursing Progress Note Patient Name: Yaa Ward Patient Location: [facility] [place]/ [place] Daily Note: 1911 received report, pt resting in bed, assuming care, safety checks complete. This note was completed by: Juliana Arenas [facility] NURSING PROG HNO ID: [id number] Author: Ina Ho RN Service: Nursing Author Type: Registered Nurse Type: Nursing Progress Note Filed: 2021 2:53 PM Note Text: Nursing Progress Note Patient Name: Yaa Ward Patient Location: [address] Daily Note: 0730 Assumed care of pt, bed locked in low position, call light within reach, rec'd report from Meri LEONG, pt sleeping at this time, auto trays Regular diet 0840 Assessment complete, see NPR [address] Whitney, pt very depressed about losing her independence and has cried multiple times today This note was completed by: Ina Ho [facility] THERAPY NTon 2021 THERAPY NT HNO ID: [id number] Author: Dru Bowens, PT Service: Physical Therapy Author Type: Physical Therapist Type: Therapy (PT/OT/Speech/Resp) Filed: 2021 10:38 AM Note Text: Physical Therapy Evaluation SERVICE DATE: 2021 SERVICE TIME: 958 ROOM: [place] [address] Recommended Discharge Disposition: Subacute/SNF Recommended Discharge Disposition [...] Hospital Admission: pt was discharged home from [facility] on 05/15/21 and was admitted to [facility] that same day due to pt's inability to get out of a chair at home. [facility] PT had recommended SNF, which pt declined. [...] Transportation;Shopping Prior Functional Level Comments: Independent cane [employer] pt says she manages all her ADLs [...] progress t (more content not included)... Normal [facility] Basic Metabolic Panlon 05-15 Anion gap [Moles/Vol] 14 mmol/L Normal 9-[address] [facility] Calcium [Mass/Vol] 9.0 mg/dL Normal 8.5-10.2 [facility] Chloride [Moles/Vol] 100 mmol/L Normal 97-105 [facility] CO2 [Moles/Vol] 22 mmol/L Normal 22-33 [facility] Creatinine [Mass/Vol] 0.80 mg/dL Normal 0.58-0.[address] [facility] eGFR- Amer. >60 Normal [facility] eGFR-All Other Races >60 Normal [facility] Comment on above: Result Comment: eGFR (Estimated [...] GFR. Glucose [Mass/Vol] 85 mg/dL Normal 74-99 [facility] Potassium [Moles/Vol] 3.6 mmol/L Low 3.7-5.[address] [facility] Sodium [Moles/Vol] 136 mmol/L Normal 136-144 [facility] Urea nitrogen [Mass/Vol] 15 mg/dL Normal 7-21 [facility] CBCon 05-15-2021 Absolute nRBC <0.01 Normal <0.01 [facility] Erythrocyte distribution width (RBC) [Ratio] 14.7 % Normal 11.5-15.0 [facility] Hematocrit (Bld) [Volume fraction] 41.5 % Normal 36.0-46.0 [facility] Hemoglobin (Bld) [Mass/Vol] 13.6 g/dL Normal 11.5-15.5 [facility] MCH 29.1 pG Normal 26.0-34.0 [facility] MCHC (RBC) [Mass/Vol] 32.8 g/dL Normal 30.5-36.[address] [facility] MCV (RBC) [Entitic vol] 88.7 fL Normal 80.0-100.0 [facility] Platelet mean volume (Bld) [Entitic vol] 9.3 fL Normal 9.0-12.7 [facility] Platelets (Bld) [#/Vol] 169 10*3/uL Normal 150-400 [facility] RBC (Bld) [#/Vol] 4.68 10*6/uL Normal 3.90-5.20 [facility] WBC (Bld) [#/Vol] 7.42 10*3/uL Normal 3.70-11.00 [facility] CNDSon 05-15-2021 CNDS HNO ID: [id number] Author: Mika Borjas MD Service: Hospital Medicine [...] Attending Provider: Mika Borjas MD Primary Service: [place] [address] REASON FOR HOSPITALIZATION: Abdominal pain and general [...] Resume pre-hospital activity ALLERGIES Allergen Reactions - Gpekrzg-Qlb-Soz Red* Other: See Comments Lethargic, and muscle [...] Refills: 1 hydrOXYz (more content not included)... [facility] NURSING PROGon 05-15-2021 NURSING PROG HNO ID: [id number] Author: Meri Ye, RN Service: Nursing Author Type: Registered Nurse Type: Nursing Progress Note Filed: 05/15/2021 11:19 PM Note Text: Nursing Progress Note Patient Name: Yaa Ward [facility] in [facility]. Actions taken: Patient belongings with patient. Pt oriented to room and call light. Pt is legally blind. VSS, pt given bed bath, yellow fall socks put on. Dr. Devonte keane for admission orders. 0: Pt given evening meds and boxed lunch. No other needs at this time. This note was completed by: Meri Ye [facility] Basic Metabolic Panlon 05-14 Anion gap [Moles/Vol] 15 mmol/L Normal 9-[address] [facility] Calcium [Mass/Vol] 8.8 mg/dL Normal 8.5-10.2 [facility] Chloride [Moles/Vol] 101 mmol/L Normal 97-105 [facility] CO2 [Moles/Vol] 21 mmol/L Low 22-33 [facility] Creatinine [Mass/Vol] 0.80 mg/dL Normal 0.58-0.[address] [facility] eGFR- Amer. >60 Normal [facility] eGFR-All Other Races >60 Normal [facility] Comment on above: Result Comment: eGFR (Estimated [...] GFR. Glucose [Mass/Vol] 88 mg/dL Normal 74-99 [facility] Potassium [Moles/Vol] 3.6 mmol/L Low 3.7-5.[address] [facility] Sodium [Moles/Vol] 137 mmol/L Normal 136-144 [facility] Urea nitrogen [Mass/Vol] 11 mg/dL Normal 7-21 [facility] CBCon 05-14-2021 Absolute nRBC <0.01 Normal <0.01 [facility] Erythrocyte distribution width (RBC) [Ratio] 14.6 % Normal 11.5-15.0 [facility] Hematocrit (Bld) [Volume fraction] 40.5 % Normal 36.0-46.0 [facility] Hemoglobin (Bld) [Mass/Vol] 13.3 g/dL Normal 11.5-15.5 [facility] MCH 29.4 pG Normal 26.0-34.0 [facility] MCHC (RBC) [Mass/Vol] 32.8 g/dL Normal 30.5-36.[address] [facility] MCV (RBC) [Entitic vol] 89.6 fL Normal 80.0-100.0 [facility] Platelet mean volume (Bld) [Entitic vol] 9.2 fL Normal 9.0-12.7 [facility] Platelets (Bld) [#/Vol] 155 10*3/uL Normal 150-400 [facility] Comment on above: Result Comment: Samp le checked for a clot. RBC (Bld) [#/Vol] 4.52 10*6/uL Normal 3.90-5.20 [facility] WBC (Bld) [#/Vol] 8.04 10*3/uL Normal 3.70-11.00 [facility] Basic Metabolic Panlon 05-13 Anion gap [Moles/Vol] 10 mmol/L Normal 9-[address] [facility] Anion gap [Moles/Vol] 11 mmol/L Normal 9-[address] [facility] Calcium [Mass/Vol] 8.7 mg/dL Normal 8.5-10.2 [facility] Calcium [Mass/Vol] 8.5 mg/dL Normal 8.5-10.2 [facility] Chloride [Moles/Vol] 102 mmol/L Normal 97-105 [facility] CO2 [Moles/Vol] 25 mmol/L Normal 22- [facility] CO2 [Moles/Vol] 23 mmol/L Normal -33 [facility] Creatinine [Mass/Vol] 0.83 mg/dL Normal 0.58-0.[address] [facility] Creatinine [Mass/Vol] 0.84 mg/dL Normal 0.58-0.[address] [facility] eGFR- Amer. >60 Normal [facility] eGFR-All Other Races >60 Normal [facility] Comment on above: Result Comment: eGFR (Estimated [...] GFR. Glucose [Mass/Vol] 121 mg/dL High 74-99 [facility] Glucose [Mass/Vol] 123 mg/dL High 74-99 [facility] Potassium [Moles/Vol] 3.8 mmol/L Normal 3.7-5.[address] [facility] Potassium [Moles/Vol] 3.7 mmol/L Normal 3.7-5.[address] [facility] Sodium [Moles/Vol] 137 mmol/L Normal 136-144 [facility] Sodium [Moles/Vol] 136 mmol/L Normal 136-144 [facility] Urea nitrogen [Mass/Vol] 10 mg/dL Normal 7-21 [facility] CASE MANAGEMon 05-13-2021 CASE MANAGEM HNO ID: [id number] Author: Tejal Taverasanne-marie Service: ? Author Type: ? Type: Care Mgt Progress Note Filed: 05/13/2021 1:24 PM Note Text: CARE MANAGEMENT PROGRESS NOTE SERVICE DATE: 05/13/2021 SERVICE TIME: 1:23 PM LOS: 1 day Delivered and explained AD paperwork to patient. Patient prefers to complete at home. SIGNATURE: Tejal Maynard PATIENT NAME: Yaa Ward DATE: May 13, 2021 TIME: 1:23 PM PAGER/CONTACT #: [phone] Normal [facility] CBCon 05-13-2021 Absolute nRBC <0.01 Normal <0.01 [facility] Erythrocyte distribution width (RBC) [Ratio] 14.6 % Normal 11.5-15.0 [facility] Hematocrit (Bld) [Volume fraction] 37.6 % Normal 36.0-46.0 [facility] Hemoglobin (Bld) [Mass/Vol] 12.4 g/dL Normal 11.5-15.5 [facility] MCH 29.8 pG Normal 26.0-34.0 [facility] MCHC (RBC) [Mass/Vol] 33.0 g/dL Normal 30.5-36.[address] [facility] MCV (RBC) [Entitic vol] 90.4 fL Normal 80.0-100.0 [facility] Platelet mean volume (Bld) [Entitic vol] 9.2 fL Normal 9.0-12.7 [facility] Platelets (Bld) [#/Vol] 134 10*3/uL Low 150-400 [facility] RBC (Bld) [#/Vol] 4.16 10*6/uL Normal 3.90-5.20 [facility] WBC (Bld) [#/Vol] 7.46 10*3/uL Normal 3.70-11.00 [facility] NURSING PROGon 05-13-2021 NURSING PROG HNO ID: [id number] Author: Rosalba Colbert RN Service: ? 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 States [...] symptoms and signs-other Interventions Provided: Evaluation;Therapeutic Activity (11458);Therapeutic Exercise (14374) $ Evaluation-Low (02601) Billed Units: 1 unit Therapeutic Exercise (29188) Treatment Minutes: 15 $ Therapeutic Exercise (06657) Billed Units: 1 unit Verbally review bed activities Therapeutic Activity (62569) Treatment Minutes: 10 $ Therapeutic Activity (11030) Billed Units: 1 unit Training AND education [...] Please see d (more content not included)... [facility] ALLIED HEALTHon 05-12-2021 ALLIED HEALTH HNO ID: [id number] Author: Mariaelena Lozano [facility] Service: Pharmacy Author Type: Pharmacist [...] to changes in clinical status. Mariaelena Lozano [facility] Pharmacy extension [phone] [facility] Basic Metabolic Panlon 05-12 Anion gap [Moles/Vol] 14 mmol/L Normal 9-[address] [facility] Calcium [Mass/Vol] 8.8 mg/dL Normal 8.5-10.2 [facility] Chloride [Moles/Vol] 99 mmol/L Normal 97-105 [facility] CO2 [Moles/Vol] 23 mmol/L Normal 22-33 [facility] Creatinine [Mass/Vol] 0.83 mg/dL Normal 0.58-0.[address] [facility] eGFR- Amer. >60 Normal [facility] eGFR-All Other Races >60 Normal [facility] Comment on above: Result Comment: eGFR (Estimated [...] GFR. Glucose [Mass/Vol] 117 mg/dL High 74-99 [facility] Potassium [Moles/Vol] 3.0 mmol/L Low 3.7-5.[address] [facility] Sodium [Moles/Vol] 136 mmol/L Normal 136-144 [facility] Urea nitrogen [Mass/Vol] 12 mg/dL Normal 7-21 [facility] CBCon 05-12-2021 Absolute nRBC <0.01 Normal <0.01 [facility] Erythrocyte distribution width (RBC) [Ratio] 14.9 % Normal 11.5-15.0 [facility] Hematocrit (Bld) [Volume fraction] 38.3 % Normal 36.0-46.0 [facility] Hemoglobin (Bld) [Mass/Vol] 12.8 g/dL Normal 11.5-15.5 [facility] MCH 30.0 pG Normal 26.0-34.0 [facility] MCHC (RBC) [Mass/Vol] 33.4 g/dL Normal 30.5-36.[address] [facility] MCV (RBC) [Entitic vol] 89.9 fL Normal 80.0-100.0 [facility] Platelet mean volume (Bld) [Entitic vol] 9.1 fL Normal 9.0-12.7 [facility] Platelets (Bld) [#/Vol] 136 10*3/uL Low 150-400 [facility] RBC (Bld) [#/Vol] 4.26 10*6/uL Normal 3.90-5.20 [facility] WBC (Bld) [#/Vol] 6.43 10*3/uL Normal 3.70-11.00 [facility] HISTORY PHYSICALon HISTORY PHYSICAL HNO ID: [id number] Author: Charline Salcedo MD Service: Hospital Medicine Author Type: Physician Type: HANDP Filed: 05/12/2021 1:54 AM Note Text: DEPARTMENT OF HOSPITAL MEDICINE HISTORY AND PHYSICAL EXAM SERVICE DATE: 05/12/2021 Code Status: Not on file SERVICE TIME: 1:40 AM Primary Care Physician: Delisa Estrella DO NIGHT AND WEEKEND COVERAGE: [facility] COVERAGE: Patient admitted to [facility] From 0700 - 1630, please contact pager [phone] for patient issues. From 1630 - 0700, please contact the Night Hospitalist on pager [phone] for patient issues. Subjective CHIEF COMPLAINT: Abdominal [...] mL, INTRAVENOUS, DIRECTED PRN, Gen Hickman, DO pantoprazole DR (PROTONIX) 40 mg tablet, [...] tablet, Rfl: 2, (more content not included)... [facility] NURSING PROGon 05-12-2021 NURSING PROG HNO ID: [id number] Author: Valerio Hernandez III, RN Service: Nursing Author Type: Registered Nurse Type: Nursing Progress Note Filed: 05/13/2021 4:40 AM Note Text: Nursing Progress Note Patient Name: Yaa Ward Patient Location: [place] [address]/[facility] Daily Note: 1930 - Patient handoff report [...] note was completed by: Valerio Hernandez III [facility] NURSING PROG HNO ID: [id number] Author: Rosalba Colbert RN Service: ? Author [...] note was completed by: Rosalba Colbert RN [facility] No Panel Informationon 03-28 [facility] CITRULLINE ANTIBODYon 2018 CITRULLINE ANTIBODY <1 Normal [facility] Comment on above: Result Comment: THE TEST [...] U/ML Performed By: #### C ITAB #### [facility] [address] [place] [address] BILATERAL HAND; MIN 3 VIEWSo n 12-10-2018 BILATERAL HAND; MIN 3 VIEWS Patient Name: YAA WARD STUDY: BILATERAL HAND; MIN 3 VIEWS; BILATERAL WRIST COMPLT; MIN 3 VIEWS; 12/10/2018 5:10 pm INDICATION: bilateral hand pain; bilateral wrist pain, repeat for positioning.. COMPARISON: None ACCESSION NUMBER(S): [id number]; [id number] ORDERING CLINICIAN: JASON WILLETT FINDINGS: Three views [...] Electronically signed by: GUALBERTO REES MD Normal [facility] BILATERAL SHOULDER, CMPLT, M IN 2 VIEWSon 12-10-2018 BILATERAL SHOULDER, CMPLT, MIN 2 VIEWS Patient Name: YAA WARD STUDY: BILATERAL SHOULDER, CMPLT, MIN 2 VIEWS; 12/10/2018 5:10 pm INDICATION: bilateral shoulder pain, repeat for positioning.. COMPARISON: None ACCESSION NUMBER(S): [id number] ORDERING CLINICIAN: JASON WILLETT FINDINGS: Moderate glenohumeral and acromioclavicular osteoarthritis bilaterally. No fracture seen. No osseous lesion. 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 Electronically signed by: GUALBERTO REES MD Normal [facility] BILATERAL WRIST COMPLT; MIN 3 VIEWSon 12-10-2018 BILATERAL WRIST COMPLT; MIN 3 VIEWS Patient Name: YAA WARD STUDY: BILATERAL HAND; MIN 3 VIEWS; BILATERAL WRIST COMPLT; MIN 3 VIEWS; 12/10/2018 5:10 pm INDICATION: bilateral hand pain; bilateral wrist pain, repeat for positioning.. COMPARISON: None ACCESSION NUMBER(S): [id number]; [id number] ORDERING CLINICIAN: JASON WILLETT FINDINGS: Three views [...] Electronically signed by: GUALBERTO REES MD Normal [facility] C-REACTIVE PROTEINon 019 CRP mass conc 0.89 mg/dL Normal [facility] Comment on above: Result Comment: REF VALUE < 1.00 Performed By: #### C RP #### [facility] [address] [place] [address] CBCon 12-10-2018 Erythrocyte distribution width Ratio (RBC) 15.9 % High 11.5 - 14.5 [facility] Comment on above: Performed By: #### C BC #### [facility] [address] [place] [address] Hematocrit Volume Fraction (Bld) 45.2 % Normal 36.0 - 46.0 [facility] Comment on above: Performed By: #### C BC #### [facility] [address] [place] [address] Hemoglobin mass conc (Bld) 14.7 g/dL Normal 12.0 - 16.0 [facility] Comment on above: Performed By: #### C BC #### [facility] [address] [place] [address] MCHC mass conc (RBC) 32.5 g/dL Normal 32.0 - 36.0 [facility] Comment on above: Performed By: #### C BC #### [facility] [address] [place], [place] MCV Entitic volume (RBC) 90 fL Normal 80 - 100 [facility] Comment on above: Performed By: #### C BC #### [facility] [address] [place], [place] Nucleated RBC/100 WBC Ratio (Bld) 0.0 /100 WBC Normal 0.0-0.0 [facility] Comment on above: Performed By: #### C BC #### [facility] [address] [place] [address] Platelets #/vol (Bld) 190 10*3/uL Normal 150 - 450 [facility] Comment on above: Performed By: #### C BC #### [facility] [address] [place] [address] RBC #/vol (Bld) 5.02 x10E12/L Normal 4.00 - 5.20 [facility] Comment on above: Performed By: #### C BC #### [facility] [address] [place] [address] WBC #/vol (Bld) 8.3 10*3/uL Normal 4.4 - 11.3 [facility] Comment on above: Performed By: #### C BC #### [facility] [address] [place] [address] COMPREHENSIVE PANELon 2018 Albumin mass conc 4.3 g/dL Normal 3.4 - 5.0 [facility] Comment on above: Performed By: #### C MP #### [facility] [address] [place] [address] ALP enzyme act/vol 110 U/L Normal 33 - 136 [facility] Comment on above: Performed By: #### C MP #### [facility] [address] [place] [address] ALT enzyme act/vol 19 U/L Normal 7 - 45 [facility] Comment on above: Result Comment: Ellen ents treated with Sulfasalazine may generate falsely decreased results for ALT. Performed By: #### C MP #### [facility] [address] [place] [address] Anion gap molar conc 17 mmol/L Normal 10 - 20 [facility] Comment on above: Performed By: #### C MP #### [facility] [address] [place] [address] AST enzyme act/vol 24 U/L Normal 9 - 39 [facility] Comment on above: Performed By: #### C MP #### [facility] [address] [place] [address] Bilirubin mass conc 0.9 mg/dL Normal 0.0 - 1.2 [facility] Comment on above: Performed By: #### C MP #### [facility] [address] [place] [address] Calcium mass conc 9.8 mg/dL Normal 8.6 - 10.6 [facility] Comment on above: Performed By: #### C MP #### [facility] [address] [place] [address] Chloride molar conc 102 mmol/L Normal 98 - 107 [facility] Comment on above: Performed By: #### C MP #### [facility] [address] [place] [address] Creatinine mass conc 0.96 mg/dL Normal 0.50 - 1.05 [facility] Comment on above: Performed By: #### C MP #### [facility] [address] [place] [address] GFR- AM. 68 mL/min/1.73m2 Normal >60 [facility] Comment on above: Result Comment: CALC ULATIONS OF ESTIMATED GFR ARE PERFORMED USING THE MDRD STUDY EQUATION FOR THE IDMS-TRACEABLE CREATININE METHODS. CLIN CHEM 2007;53:766-72 Performed By: #### C MP #### [facility] [address] [place] [address] GFR-NON AM. 56 mL/min/1.73m2 Abnormal >60 [facility] Comment on above: Performed By: #### C MP #### [facility] [address] [place] [address] Glucose mass conc 94 mg/dL Normal 74 - 99 [facility] Comment on above: Performed By: #### C MP #### [facility] [address] [place] [address] HCO3 molar conc (Bld) 24 mmol/L Normal 21 - 32 [facility] Comment on above: Performed By: #### C MP #### [facility] [address] [place] [address] Potassium molar conc 4.1 mmol/L Normal 3.5 - 5.3 [facility] Comment on above: Performed By: #### C MP #### [facility] [address] [place] [address] Protein mass conc 7.8 g/dL Normal 6.4 - 8.2 [facility] Comment on above: Performed By: #### C MP #### [facility] [address] [place] [address] Sodium molar conc 139 mmol/L Normal 136 - 145 [facility] Comment on above: Performed By: #### C MP #### [facility] [address] [place] [address] Urea nitrogen mass conc 41 mg/dL High 6 - 23 [facility] Comment on above: Performed By: #### C MP #### [facility] [address] [place] [address] RHEUMATOID FACTORon 12-11-19 19 RHEUMATOID FACTOR <10 Normal 0 - 15 [facility] Comment on above: Performed By: #### R F #### [facility] [address] [place] [address] SEDIMENTATION RATE, ERYTHROC YTEon 12-10-2018 SEDIMENTATION RATE, ERYTHROCYTE 55 mm/h High 0 - 30 [facility] Comment on above: Performed By: #### E SRWS #### [facility] [address] [place] [address] URIC ACIDon 12-10-2018 Urate mass conc 7.9 mg/dL High 2.3 - 6.7 [facility] Comment on above: Result Comment: Radha puncture immediately after or during the administration of Metamizole may lead to falsely low results. Testing should be performed immediately prior to Metamizole dosing. Performed By: #### U AMY #### [facility] [address] [place] [address] Vital Signs Date Time Vital Sign Value Performing Clinician Facility 06-09-2025 12:48-0400 Body height 160.[address] Rodrigue Saldaña MD Work Phone: [facility] 12-22-2024 15:09-0400 Body height 160.[address] Rodrigue Saldaña MD Work Phone: [facility] 12-22-2024 15:09-0400 Body mass index (BMI) [Ratio] 45.1 kg/m2 Dr. Rodrigue Saldaña MD Work Phone: [facility] 12-22-2024 15:09-0400 Body weight 115.[address] Rodrigue Saldaña MD Work Phone: [facility] 04-24-2024 11:23-0400 Body height 157.5 cm Duc Hritz TELESERVICES REPRESENTATIVE.CLOUD ARCHITECT Work Phone: [facility] 04-24-2024 11:23-0400 Body mass index (BMI) [Ratio] 46.64 kg/m2 Duc Hritz TELESERVICES REPRESENTATIVE.CLOUD ARCHITECT Work Phone: [facility] 04-24-2024 11:23-0400 Body weight 115.67 kg Duc Hritz TELESERVICES REPRESENTATIVE.CLOUD ARCHITECT Work Phone: [facility] Comment on above: Unable to get due to wheelchair 04-24-2024 11:23-0400 Diastolic blood pressure 92 mm[Hg] Duc Hritz TELESERVICES REPRESENTATIVE.CLOUD ARCHITECT Work Phone: [facility] 04-24-2024 11:23-0400 Heart rate 64 /min Duc Hritz TELESERVICES REPRESENTATIVE.CLOUD ARCHITECT Work Phone: [facility] 04-24-2024 11:23-0400 Systolic blood pressure 148 mm[Hg] Duc Hritz TELESERVICES REPRESENTATIVE.CLOUD ARCHITECT Work Phone: [facility] 03-11-2024 11:05-0400 Body height 157.5 cm Delisa Esterlla DO Work Phone: [facility] 03-11-2024 11:05-0400 Body mass index (BMI) [Ratio] 46.65 kg/m2 Delisa Estrella DO Work Phone: [facility] 03-11-2024 11:05-0400 Body weight 115.7 kg Delisa Estrella DO Work Phone: [facility] 03-11-2024 11:05-0400 Diastolic blood pressure 64 mm[Hg] Delisa Estrella DO Work Phone: [facility] 03-11-2024 11:05-0400 Heart rate 67 /min Delisa Estrella DO Work Phone: [facility] 03-11-2024 11:05-0400 SaO2% (BldA) [Mass fraction] 95 % Delisa Estrella DO Work Phone: [facility] 03-11-2024 11:05-0400 Systolic blood pressure 117 mm[Hg] Delisa Estrella DO Work Phone: [facility] Encounters Encounter Date Encounter Type Care Provider Facility Start: 07-15-2025 End: 07-15-2025 ambulatory Miguel Friend Facility:[facility] Start: 06-22-2025 ambulatory Rodrigue Card ty:[facility] Start: 05-26-2025 End: 05-26-[address] Rodrigue Saldaña MD Work Phone: -[facility] Start: 05-26-2025 End: 05-26-2025 Patient encounter procedure Regine HILARIO -[facility] Work Phone: Start: 05-25-2025 ambulatory Rodrigue Card ty:[facility] Start: 05-25-2025 Registered Referred Rodrigue Saldaña MD -[facility] - [facility] Start: 04-27-2025 ambulatory Rodrigue Card ty:[facility] Start: 04-27-2025 [facility] Start: 04-20-2025 [facility] Start: 04-20-2025 End: 04-20-2025 ambulatory Efnaveed Roye Facility:[facility] Start: 03-31-2025 ambulatory Miguel Wooten Facility :[facility] Start: 03-30-2025 End: 03-30-[address] Rodrigue Saldaña MD Work Phone: [facility] Start: 03-30-2025 End: 03-30-2025 [facility]ed [facility] Start: 03-30-2025 [facility]istered [facility] Start: 03-30-2025 End: 03-30-2025 ambulatory Rodrigue Saldaña Facility:[facility] Start: 03-10-2025 Non-patient / Non-visit Dr. Candis Jordan MD -[facility] Work Phone: Start: 03-09-2025 ambulatory Efnaveed Saldaña Facili ty:[facility] Start: 03-09-2025 [facility] Start: 03-02-2025 ambulatory Efewongbe Manuelae Facili ty:[facility] Start: 03-02-2025 [facility] Start: 02-25-2025 ambulatory Regine Morales OLS Fac ility:[facility] Start: 02-25-2025 [facility]istered [facility] Start: 02-24-2025 End: 02-24-[address] Rodrigue Saldaña MD Work Phone: -[facility] Start: 02-24-2025 End: 02-24-2025 [facility] Work [facility]: Start: 02-11-2025 ambulatory Rodrigue Card ty:[facility] Start: 02-11-2025 Registered Referred Rodrigue [facility] Start: 02-03-2025 ambulatory Rodrigue Card ty:[facility] Start: 02-03-2025 Registered Referred Rodrigue [facility] Start: 01-28-2025 ambulatory Rodrigue DONOVAN Facility:[facility] Start: 01-28-2025 Registered Referred Rodrigue [facility] Start: 01-19-2025 End: 01-19-[address] Rodrigue Saldaña MD Work Phone: [facility] Work Phone: Start: 01-19-2025 End: 01-19-2025 Departed Referred Regine [facility] Start: 01-19-2025 [facility] Start: 01-19-2025 End: 01-19-2025 ambulatory Regine DONOVAN Facility:[facility] Start: 01-14-2025 End: 01-14-[address] Rodrigue Sladaña MD Work Phone: [facility] Work Phone: Start: 01-14-2025 End: 01-14-2025 Departed Referred Rodrigue [facility] Start: 01-14-2025 Registered Referred Rodrigue [facility] Start: 01-14-2025 End: 01-14-2025 ambulatory Rodrigue DONOVAN Facility:[facility] Start: 01-09-2025 End: 01-09-2025 Patient encounter procedure Elvi ZHOU -[facility] Work Phone: Start: 01-09-2025 End: 01-09-2025 ambulatory Elvi Perez Facility:[facility] Start: 01-05-2025 End: 01-05-2025 Departed Referred Rodrigue [facility] Start: 01-05-2025 End: 01-05-2025 ambulatory Efnaveed Saldaña OLS Facility:[facility] Start: 01-02-2025 End: 01-02-[address] Rodrigue Saldaña MD Work Phone: [facility] Work Phone: Start: 01-02-2025 End: 01-02-2025 Departed Referred Rodrigue [facility] Start: 01-02-2025 Registered Referred Rodrigue [facility] Start: 01-02-2025 End: 01-02-2025 ambulatory Rodrigue DONOVAN Facility:[facility] Start: 12-31-2024 End: 12-31-[address] Rodrigue Saldaña MD Work Phone: [facility] Work Phone: Start: 12-31-2024 End: 12-31-2024 Departed Referred Rodrigue [facility] Start: 12-31-2024 Registered Referred Rodrigue [facility] Start: 12-31-2024 End: 12-31-2024 ambulatory Efnaveed Saldaña OLS Facility:[facility] Start: 12-22-2024 End: 12-22-[address] Arjun Felton MD -[facility] Work Phone: Start: 12-22-2024 End: 12-22-2024 ambulatory Rodrigue Saldaña Facility:[facility] Start: 12-17-2024 End: 12-17-[address] Rodrigue Saldaña MD Work Phone: [facility] Work Phone: Start: 12-17-2024 End: 12-17-2024 Departed Referred Regine Morales [employer] [facility] Start: 12-17-2024 Registered Referred Regine lees [employer] Start: 12-17-2024 End: 12-17-2024 ambulatory Regine Morales OLS Facility:[facility] Start: 12-10-2024 End: 12-10-[address] Rodrigue Saldaña MD Work Phone: [facility] Work Phone: Start: 12-10-2024 End: 12-10-2024 Patient encounter procedure Regine Morales NP-C -[facility] Work Phone: Start: 12-08-2024 End: 12-08-2024 Departed Referred Rodrigue Saldaña MD -[facility] - [facility] Start: 12-08-2024 Registered Referred Rodrigue Saldaña MD -[facility] Start: 12-08-2024 End: 12-08-2024 ambulatory Rodrigue DONOVAN Facility:[facility] Start: 12-03-2024 End: 12-03-[address] Rodrigue Saldaña MD Work Phone: [facility] Work Phone: Start: 12-03-2024 End: 12-03-2024 Departed Referred Regine Morales [employer] Start: 12-03-2024 Registered Referred Regine lees [employer]OO[employer] -[facility] Start: 12-03-2024 End: 12-03-2024 ambulatory Regine Morales OLS Facility:[facility] Start: 11-19-2024 End: 11-19-[address] 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 Rodrigue Saldaña MD Work Phone: [facility] Work Phone: Start: 11-10-2024 End: 11-10-2024 Departed Referred Rodrigue [facility] Start: 11-10-2024 Registered Referred Rodrigue [facility] Start: 11-10-2024 End: 11-10-2024 ambulatory Rodrigue DONOVAN Facility:[facility] Start: 11-05-2024 End: 11-05-[address] Rodrigue Saldaña MD Work Phone: [facility] Work Phone: Start: 11-05-2024 End: 11-05-2024 Departed Referred Regine Morales DEV-C -[facility] - [facility] Start: 11-05-2024 End: 11-05-2024 ambulatory Regine Morales OLS Facility:[facility] Start: 10-22-2024 ambulatory Rodrigue schulz OLS Facility:[facility] Start: 10-22-2024 Registered Referred Rodrigue [facility] Start: 10-20-2024 ambulatory Rodrigue schulz OLS Facility:[facility] Start: 10-20-2024 Registered Referred Rodrigue [facility] Start: 10-13-2024 ambulatory Rodrigue schulz OLS Facility:[facility] Start: 10-13-2024 Registered Referred Rodrigue [facility] Start: 10-08-2024 End: 10-08-2024 Departed Referred Rodrigue [facility] Start: 10-08-2024 End: 10-08-2024 ambulatory Rodrigeu DONOVAN Facility:[facility] Start: 09-24-2024 End: 09-24-2024 Departed Referred Rodrigue [facility] Start: 09-24-2024 End: 09-24-2024 ambulatory Rodrigue DONOVAN Facility:[facility] Start: 09-15-2024 ambulatory Rodrigue DONOVAN Facility:[facility] Start: 09-15-2024 Registered Referred Rodrigue VelaAnne-Marie [facility] Start: 09-02-2024 ambulatory Rodrigue Saldaña Facili ty:[facility] Start: 08-27-2024 ambulatory Rodrigue DONOVAN Facility:[facility] Start: 08-27-2024 Registered Referred Rodrigue VelaAnne-[facility] Start: 08-19-2024 End: 08-19-2024 ambulatory KY SHAW Facility:[facility] Start: 08-19-2024 End: 08-19-2024 Patient encounter procedure Ky Shaw OD Work Phone: Ophthalmology Comment on above: 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); Pseudophakia of both eyes Start: 08-18-2024 ambulatory Rodrigue DONOVAN Facility:[facility] Start: 08-18-2024 Registered Referred Rodrigue [facility] Start: 08-13-2024 ambulatory Rodrigue schulz OLS Facility:[facility] Start: 08-12-2024 End: 08-12-2024 ambulatory Regine Morales NP [facility] Start: 08-04-2024 End: 08-04-2024 ambulatory Rodrigue DONOVAN Facility:[facility] Start: 07-31-2024 ambulatory Nikkie Robertson NP Facili ty:[facility] Start: 07-31-2024 ambulatory Osvaldo Bam [facility] Start: 07-29-2024 ambulatory Osvaldo Bam [facility] Start: 07-29-2024 End: 07-29-2024 ambulatory Osvaldo Bam Facility:[facility] Start: 07-21-2024 End: 07-21-2024 ambulatory Osvaldo Bam Facility:[facility] Start: 04-24-2024 End: 04-24-2024 ambulatory DUC PAYAN Facility:[facility] Start: 04-24-2024 End: 04-24-2024 Office outpatient new 45 minutes Duc Payan TELESERVICES REPRESENTATIVE.CLOUD ARCHITECT Work Phone: [facility] [place] Comment on above: 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 (Primary Dx); Change in voice; Constipation, unspecified constipation type Start: 03-11-2024 Telephone encounter Delisa rubio DO Work Phone: [facility] Comment on above: appointment today Start: 03-11-2024 End: 03-11-2024 ambulatory DELISA ESTRELLA Facility:[facility] Start: 03-11-2024 End: 03-11-2024 Patient encounter procedure Delisa Estrella DO Work Phone: [facility] Comment on above: Peripheral edema (Pr imary Dx); Primary hypertension; Chronic neck pain; Obesity, Class III, BMI 40-49.9 (morbid obesity) (HCC); Garcia's esophagus with dysplasia; Mixed hyperlipidemia; Anxiety and depression Start: 12-17-2023 Telephone encounter Delisa rubio DO Work Phone: [facility] Comment on above: Appointment (Previou s patient) Start: 12-07-2023 End: 12-07-2023 ambulatory VINOD ROJAS Facility:[facility] Start: 12-06-2023 ambulatory VINOD ROJAS Fac ility:[facility] Start: 12-05-2023 End: 12-05-2023 ambulatory [facility] Work Phone: Start: 12-05-2023 End: 12-05-[address] [facility] Start: 11-23-2023 End: 11-23-2023 ambulatory VINOD ROJAS Facility:[facility] Start: 11-23-2023 End: 11-23-2023 Patient encounter procedure Vinod Rojas MD Work Phone: Ophthalmology Comment on above: Pseudophakia of righ t eye (Primary Dx); Nuclear sclerotic cataract of left eye Start: 11-22-2023 End: 11-22-2023 ambulatory VINOD ROJAS Facility:[facility] Start: 11-20-2023 Telephone encounter Vinod Rojas MD Work Phone: Ophthalmology Comment on above: [facility]; Patient Update Start: 11-16-2023 ambulatory DELISA Lal y:[facility] Start: 10-24-2023 End: 10-24-2023 ambulatory [facility] Work Phone: Start: 10-24-2023 End: 10-24-2023 Departed Referred [facility] Start: 10-12-2023 Telephone encounter Vinod Rojas MD Work Phone: Ophthalmology Comment on above: Schedule Surgery Start: 09-18-2023 End: 09-18-2023 ambulatory VINOD ROJAS Facility:[facility] Start: 09-12-2023 End: 09-12-2023 Departed Referred [facility] Start: 07-20-2023 End: 07-20-[address] Aman Ragsdale Work Phone: [facility] Work Phone: Start: 07-20-2023 End: 07-20-[address] Aman Ragsdale Work Phone: [facility] Start: 07-13-2023 End: 07-13-[address] Aman Ragsdale Work Phone: [facility] Work Phone: Start: 07-13-2023 End: 07-13-[address] Aman Ragsdale Work Phone: [facility] Start: 07-13-[address] Aman villafuerte Work Phone: [facility] Start: 07-05-2023 End: 07-05-[address] Aman Ragsdale Work Phone: [facility] Work Phone: Start: 07-05-2023 End: 07-05-[address] Aman Ragsdale Work Phone: [facility] Start: 06-26-2023 End: 06-26-[address] Aman Ragsdale Work Phone: [facility] Work Phone: Start: 06-02-[address] Aman villafuerte Work Phone: [facility]-Laboratory, Specimen Work Phone: Start: 05-15-2023 End: 05-15-[address] Aman Ragsdale Work Phone: [facility] Start: 04-30-2023 End: 04-30-[address] Aman Ragsdale Work Phone: [facility] Work Phone: Start: 04-19-2023 End: 04-19-2023 ambulatory [facility] Work Phone: Start: 04-19-2023 End: 04-19-[address] [facility] Start: 01-17-2023 End: 01-17-2023 Departed Referred [facility] Start: 07-20-2022 End: 07-20-2022 ambulatory [facility] Work Phone: Start: 07-20-2022 End: 07-20-[address] [facility] Start: 04-19-2022 End: 04-19-2022 ambulatory [facility] Work Phone: Start: 04-19-2022 End: 04-19-[address] [facility] Start: 01-31-2022 End: 01-31-[address] [facility] Start: 03-28-2021 End: 03-28-2021 Subsequent hospital visit by physician Xr [facility] Comment on above: Inflammatory arthrit [...] Visit [facility] [address] [place] [address] Ky Shaw, OD [address] [place] [address] 1 YR F/U for complete eye exam and mac OCT. Ophthalmology Comment on above: 1 YR F/U for complete eye exam and mac O CT. Start: 09-23-2024 End: 09-23-2024 Patient encounter procedure 09/23/2024 2:45 PM EST Office Visit [facility] [address] [place] [id number] Adrienne Rosario MD [address] [place] [address] esophagus without dysplasia [facility] Comment on above: esophagus without dysplasia Start: 06-06-2024 Diabetes Screening Diabetes Screening [facility] Start: 05-27-2024 End: 05-27-2024 Patient encounter procedure 05/27/2024 1:45 PM EDT Office Visit [facility] [address] [place] [address] Ky Shaw, OD [address] [place] [address] Surgery follow up/refraction Ophthalmology Comment on above: Surgery follow up/refraction Start: 05-11-2024 Covid-19 Vaccine () Covid-19 Vaccine () [facility] Start: 05-11-2024 Influenza vaccination [facility] Start: 04-24-2024 End: 07-24-2024 Thyrotropin [Units/volume] in Serum or Plasma THYROID STIMULATING HORMONE Lab Routine Change in voice Constipation, unspecified constipation type Expected: 04/24/2024, Expires: 07/24/2024 [facility] Work Phone: Comment on above: Expected: 04/24/2024, Expires: Start: 04-24-2024 End: 04-24-2024 Patient encounter procedure 04/24/2024 11:20 AM EDT Office [facility] [address] [phone] Duc Payan APRN.CLOUD ARCHITECT [address] [address] hx of garcia esophagus [facility] [place] Comment on above: hx of garcia esophagus Start: 03-17-2024 End: 03-17-2024 Patient encounter procedure 03/17/2024 3:15 PM EDT Office Visit [facility] [address] [facility] [address] [place], [place] [id number] Vindo Rojas MD [address] [facility] [address] [place] [id number] Surgery follow up/refraction Ophthalmology Comment on above: Surgery follow up/refraction Start: 02-11-2024 Urine microalbumin profile DTaP,Tdap,Td Vaccine (2 - Td or Tdap) [facility] Start: 09-10-2023 Advance Directive Discussion Advance Directive Discussion [facility] Start: 09-10-2023 Behavioral Health Screening Behavioral Health Screening [facility] Start: 09-10-2023 Depression Assessment Depression Assessment [facility] Start: 05-11-2023 Covid-19 Vaccine ( season) Covid-19 Vaccine ( season) [facility] Start: 05-11-2023 Covid-19 Vaccine ( season) Covid-19 Vaccine ( season) [facility] Start: 05-11-2023 Influenza vaccination Influenza Vaccine (#1) [facility] Start: 09-10-2022 Advance Directive Discussion Advance Directive Discussion [facility] Start: 09-10-2022 Depression Assessment Depression Assessment [facility] Start: 2015 RSV Vaccine (1 - 1-dose 75+ series) RSV Vaccine (1 - 1-dose 75+ series) [facility] Start: 2000 RSV Vaccine (1 - 1-dose 60+ series) RSV Vaccine (1 - 1-dose 60+ series) [facility] Start: 1990 Shingrix Vaccine (1 of 2) Shingrix Vaccine (1 of 2) [facility] Start: 1958 Anxiety Screening Anxiety Screening [facility] Start: 1958 Depression Screening Depression Screening [facility] End: 04-24-2025 EGD DIAGNOSTIC EGD DIAGNOSTIC Endoscopy Routine 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 1 Occurrences starting 04/24/2024 until 04/24/2025 [facility] Comment on above: 1 Occurrences starting 04/24/2024 until 04/24/2025 [facility] Immunizations Immunization Date Immunization Notes Care Provider Mode melgar 02-05-2021 COVID-19 original vaccine, full dose, monovalent (MODERNA) Xr [facility] 01-08-2021 COVID-19 original vaccine, full dose, monovalent (MODERNA) Xr [facility] 07-27-2020 influenza (HD-IIV4) vaccine, age 65+ yr, high dose, quadrivalent, PF (FLUZONE HIGH-DOSE) Xr [facility] 07-27-2020 influenza virus vacc ine, unspecified formulation [facility]r [facility] 07-14-2019 influenza, high dose seasonal, preservative-free [facility]r [facility] 06-01-2018 influenza, high dose seasonal, preservative-free Xr [facility] 07-20-2016 influenza, high dose seasonal, preservative-free Xr [facility] 01-17-2016 pneumococcal conjuga te vaccine, 13 valent Xr [facility] 02-10-2014 tetanus toxoid, redu mamta diphtheria toxoid, and acellular pertussis vaccine, adsorbed [facility] 06-23-2013 influenza virus vacc ine, unspecified formulation [facility]r [facility] 02-22-2013 pneumococcal polysaccharide vaccine, 23 valent Xr [facility] 06-24-2012 influenza virus vacc ine, unspecified formulation [facility]r [facility] 08-09-2011 influenza, seasonal, injectable Vinod Fulton MD [id number] Work Phone: 10-27-2009 novel influenza-H1N1 -09, preservative-free, injectable [facility]r [facility] 07-14-2008 influenza, seasonal, injectable Xr [facility] Payers Date Payer Category Payer Medicaid [id number] 2024 Medicare [id number] 2024 Self-pay [id number] 2024 Medicaid 2024 Medicare [id number] 2022 Private Health Insurance [id number] 2020 Medicare [id number] 1940 Unknown [id number] 2.16. [id number] Private Health Insurance [id number] 2012 Unknown [id number] 2.16.8 40.1.838867.3.579.2.462 Unknown [id number] 2.16.8 40.1.641782.3.579.2.462 Unknown [id number] 2.16.8 40.1.570225.3.579.2.462 Unknown [id number] 2.16.8 40.1.201021.3.579.2.462 Unknown [id number] 2.16.8 40.1.996021.3.579.2.462 Unknown [id number] 2.16.8 40.1.546975.3.579.2.462 Unknown [id number] 2.16.8 40.1.654153.3.579.2.462 Unknown [id number] 2.16.8 40.1.051947.3.579.2.462 Unknown [id number] 2.16.8 40.1.337213.3.579.2.462 Unknown [id number] 2.16.8 40.1.728670.3.579.2.462 Unknown [id number] 2.16.8 40.1.978137.3.579.2.462 Unknown [id number] 2.16.8 40.1.884898.3.579.2.462 Unknown [id number] 2.16.8 40.1.704923.3.579.2.462 Unknown [id number] 2.16.8 40.1.662250.3.579.2.462 Unknown [id number] 2.16.8 40.1.058841.3.579.2.462 Unknown [id number] 2.16.8 40.1.465103.3.579.2.462 Unknown [id number] 2.16.8 40.1.607715.3.579.2.462 Unknown [id number] 2.16.8 40.1.805596.3.579.2.462 Unknown [id number] 2.16.8 40.1.056312.3.579.2.462 Unknown [id number] 2.16.8 40.1.592833.3.579.2.462 Unknown [id number] 2.16.8 40.1.839009.3.579.2.462 Unknown [id number] 2.16.8 40.1.954081.3.579.2.462 Unknown [id number] 2.16.8 40.1.235154.3.579.2.462 Unknown [id number] 2.16.8 40.1.084054.3.579.2.462 Unknown [id number] 2.16.8 40.1.289824.3.579.2.462 Unknown [id number] 2.16.8 40.1.419385.3.579.2.462 Unknown [id number] 2.16.8 40.1.769593.3.579.2.462 Unknown [id number] 2.16.8 40.1.113471.3.579.2.462 Unknown [id number] 2.16.8 40.1.590527.3.579.2.462 Unknown [id number] 2.16.8 40.1.698261.3.579.2.462 Unknown [id number] 2.16.8 40.1.986682.3.579.2.462 Unknown [id number] 2.16.8 40.1.819490.3.579.2.462 Unknown [id number] 2.16.8 40.1.467503.3.579.2.462 Unknown [id number] 2.16.8 40.1.730749.3.579.2.462 Unknown [id number] 2.16.8 40.1.648031.3.579.2.462 Unknown [id number] 2.16.8 40.1.205377.3.579.2.462 Unknown [id number] 2.16.8 40.1.307611.3.579.2.462 Unknown [id number] 2.16.8 40.1.674382.3.579.2.462 Unknown [id number] 2.16.8 40.1.406371.3.579.2.462 Unknown [id number] 2.16.8 40.1.689409.3.579.2.462 Unknown [id number] 2.16.8 40.1.149848.3.579.2.462 Unknown [id number] 2.16.8 40.1.491061.3.579.2.462 Unknown [id number] 2.16.8 40.1.587189.3.579.2.462 Unknown [id number] 2.16.8 40.1.410159.3.579.2.462 Unknown [id number] 2.16.8 40.1.251596.3.579.2.462 Unknown [id number] 2.16.8 40.1.054564.3.579.2.462 Unknown [id number] 2.16.8 40.1.760433.3.579.2.462 Unknown [id number] 2.16.8 40.1.100274.3.579.2.462 Unknown [id number] 2.16.8 40.1.329397.3.579.2.462 Unknown [id number] 2.16.8 40.1.959300.3.579.2.462 Social History Date Type Detail Facility Start: 1940 Sex Assigned At Female [facility] Start: 08-18-2016 End: 06-09-2025 Tobacco smoking status NHIS Never smoked tobacco [facility] Start: 08-18-2016 End: 12-07-2023 Tobacco use and exposure Smokeless tobacco non-user [facility] Start: 03-28-2021 End: 08-19-2024 Alcohol intake Ex-drinker (finding) [facility] Start: 03-19-2020 End: 11-23-2023 History of Social function [facility] Start: 03-19-2020 End: 11-23-2023 Social connection and isolation panel [facility] Do you belong to any clubs or organizations such as catholic groups, unions, fraternal or athletic groups, or school groups? No [facility] Are you now , , , , never or living with a partner? [facility] How hard is it for y ou to pay for the very basics like food, housing, medical care, and heating Not hard at all [facility] Do you feel stress - tense, restless, nervous, or anxious, or unable to sleep at night because your mind is troubled all the time - these days [OSQ] Very much [facility] (I/We) worried kvng er (my/our) food would run out before (I/we) got money to buy more. Never true [facility] Start: 08-18-2016 End: 12-07-2023 Tobacco Comment did try when she was younger [facility] Start: 03-24-2014 Alcohol Comment occasional, 6 glasses of wine per year [facility] Start: 1940 Sex Assigned At Not on file [facility] Start: 02-26-2021 End: 03-28-2021 Exposure to SARS-CoV-2 (event) Not sure [facility] Start: 12-12-2024 End: 12-26-2024 Sex Female (finding) [facility] NEGATED: Highlighted row - - YD-Sdtbnhkkpweb-Qhm urban Work Phone: Medical Equipment Procedure Code Equipment Code Equipment Original Text Equipment Identifier Dates [id number] nd Implant - [id number] Start: 02-19-2013 Comment on above: Description: pinnacl ealtrx polyethylene acetabular liner+4 neutral 36mm ID 52mm OD 0---Head Fem +5m m 07/23 36mm Hip - [id number] Start: 02-19-2013 0---Cup Actb 52m m Pinn Sect Srs - [id number] Start: 02-19-2013 [id number] Fem 12mm Cmntls Colr - [id number] Start: 02-19-2013 Cca0t0.225 [facility] - [id number] Start: 11-22-2023 Cca0t0.225 [facility] - [id number] Start: 12-06-2023 Functional Status Date Assessment Result Facility NEGATED: Highlighted row Functional performance Functional status health issues are not documented Disease VV-Ionwleeychjm-Zgz urban Work Phone: Mental Status Date Assessment Result Facility NEGATED: Highlighted row Cognitive function [Interpretation] Cognitive status health issues are not documented Disease IR-Xkqjgsgndkhr-Vct urban Work Phone: Clinical Notes 05-03-2018 to 07-15-2025 Note Date & Type Note Facility 07-15-2025 Note [facility] Medical Records Department [address] [place] [address] History Physical Exam 07/15/25 1118 MR#: [id number] Acct: [id number] Name: YAA WARD Rep #: [id number] : 1940 85 From: Miguel Wooten DO PCP: Dr. Rodrigue Saldaña MD Status:[facility] Location: [place] [address] HPI - General General Date of Admission: 07/15/25 Date of Service: 07/15/25 HPI Narrative YAA WARD, is a 85 F who presents [Chief Complaint: Barretts esophagus Pt has a PMHx of Barrets esophagus diagnosed about 10 years ago. She has been on PPI therapy since she was diagnosed. He last EGD was about 5 years ago. She endorses some issues with heartburn/chest pain in the middle of the night. She will mix some baking soda in water and drink it which is helpful. She [facility] to [facility]. pt last colonoscopy was about 5 years ago as well. She denies any lower GI issues such as constipation, diarrhea or melena. [facility] Medical History Anxiety History of diverticulitis History of IBS GERD (gastroesophageal reflux disease) Wears glasses Arthritis Gastric reflux Non-smoker History of pain when walking History of edema Primary osteoarthritis, left shoulder Left shoulder pain [...] Other symbolic dysfunctions Localized edema Dry eye syndrome Tinea corporis Vitamin D deficiency, unspecified Overactive bladder Muscle wasting and atrophy, not elsewhere classified, right lower leg Muscle wasting and atrophy, not elsewhere classified, left lower leg Dry mouth Hypokalemia Vitamin B12 deficiency anemia Nausea Irritant contact dermatitis due to detergent History of falling Other chest pain Polyosteoarthritis, unspecified Difficulty in walking, not elsewhere classified Home Medications ???Medication ???Instructions ???Recorded ???Last Taken ???Type acetaminophen 500 mg capsule 500 mg PO TID 07/15/24 Unknown His tory aspirin 81 mg tablet,delayed 81 mg PO QDAY 07/15/24 Unknown His tory release cholecalciferol (vitamin D3) 25 25 mcg PO QDAY 07/15/24 Unknown Hi story mcg (1,000 unit) capsule magnesium hydroxide 400 mg/5 mL 30 ml PO QDAY PRN constipation 01/31 Unknown History oral suspension (Milk of Magnesia) nitroglycerin 0.4 mg sublingual 0.4 mg sublingual Q5M PRN chest Unknown History tablet pain pantoprazole 40 mg tablet,delayed 40 mg PO QHS 07/15/24 Unknown His tory release peg 400-propylene glycol 0.4 %-0.3 1 drp ophthalmic (eye) QDAY PRN 07/15/24 Unknown History % eye drops (Systane (propylene dry eye(s) glycol)) potassium chloride 20 mEq 40 meq PO QDAY 07/15/24 Unknown Hi story tablet,extended release potassium chloride 20 mEq 20 meq PO QPM 07/15/24 Unknown His tory tablet,extended release(part/cryst) sennosides 8.6 mg-docusate sodium 1 tab-cap PO BID PRN constipation 07/15/24 Unknown History 50 mg capsule (Senna Plus) sertraline 50 mg tablet 150 mg PO QHS 07/15/24 Unknown His tory vit A 300 mcg-C 200 mg-E 27 1 tab PO QDAY 07/15/24 Unknown His tory mg-lutein 2 mg and minerals tablet (I-Lary) metoprolol tartrate 25 mg tablet 25 mg PO BID #180 tabs 07/21/24 Un known Rx pregabalin 100 mg capsule 100 mg PO BID 30 days #60 caps Unknown Rx aluminum-mag hydroxide-simethicone 5 ml PO Q4H PRN dyspepsia Unknown History 200 mg-200 mg-20 mg/5 mL oral susp ammonium lactate 12 % lotion 1 applic topical BID 07/14/25 Unkn own (more content not included)... [facility] 12-22-2024 Evaluation note Diagnosis Onset Date Resolution Left shoulder pain acute December 22, 2024 3:08pm Primary osteoarthritis, left shoulder acute December 22, 2024 3:08pm [facility] Work Phone: 1(756) 788-548604-14-2025 Evaluation note* Diagnosis Onset Date Resolution Status Admit Date Left shoulder pain acute December 22, 2024 3:08pm Primary osteoarthritis, left shoulder acute December 22, 2024 3:08pm Garcia's esophagus chronic January 092024 3:24pm [facility] Work Phone: 1(359) 341-651812-10-2024 Instructions* Patient Instructions* Ky Shaw OD - 08/19/2024 3:04 PM EST Continue Preservision daily Call with any sudden increase in flashes/floaters or changes to peripheral vision documented [facility] encounterM[facility]12[facility] NoteHNO ID: [id number] Author: KY SHAW OD Service: ? Author Type: MOLD ENGRAVER Type: Progress Notes Filed: 08/19/2024 15:42 Note [...] Ky Shaw, OD August 19, 2024 3:03 [facility]12-10-2024 History of Present illness Narrative* Ky [...] 19, 2024 3:03 PM documented in this encounterM[facility]08-15-2024 Instructions* Patient Instructions* Duc Payan APRN.CNP - 04/24/2024 11:43 AM EDT - recommend ENT referral for voice changes documented in this encounterM[facility]08-15-2024 NoteHNO ID: [id number] Author: DUC PAYAN APRN.CNP Service: ? Author [...] for internal providers or letter via the [employer] for external providers. HPI: Yaa [...] left total knee arthroplasty 09/10/2014: ARTHRP KNE CONDYLEANDPLATU MEDIALANDLAT COMPARTMENTS Comment: right knee No [...] dysfunctional uterine bleeding Allergies: ALLERGIES Allergen Reactions Auguwqg-Xaw-Gdr Red* Other: See Comments Lethargic, and muscle [...] 1 tablet by mouth once daily. vit C,G-Hf-lzmkx-lutein-zeaxan (PRESERVISION AREDS-2) 250-90-40-1 mg Take by mouth. [...] affected area twice daily. (more content not included)...[facility]08-15-2024 History of Present illness Narrative* Duc Payan, MAKAYLA.CLOUD ARCHITECT - 04/24/2024 11:21 AM EDT Images from [...] for internal providers or letter via the [employer] Postal Service for external providers. HPI: Yaa [...] dysfunctional uterine bleeding Allergies: ALLERGIES Allergen Reactions Veddoqs-Oqi-Xfx Red* Other: See Comments Lethargic, and muscle [...] 1 tablet by mouth once daily. vit C,T-Ig-vanjc-lutein-zeaxan (PRESERVISION AREDS-2) 250-90-40-1 mg Take by mouth. [...] daily. (Patient not taking: Reported on 03/11/2024) Elkins-3 Fatty Acids-Vitamin E (FISH OIL) 1,000 mg [...] 24, 2024 12:16 PM documented in this encounterM[facility]07-[facility]-2024 Telephone encounter Note * Telephone Encounter - [...] Saldaña it she wishes. Delisa Estrella DO [facility]07-03-2024 Miscellaneous Notes* Telephone Encounter - Delisa Estrella [...] - 03/11/2024 10:04 AM EDT Saba with [facility] is calling Delisa Estrella DO today with concern regarding appointment today. Patient lives in a facility right now and the manager baby of the facility is calling and states [...] of symptoms: N/A Any questions, please call [phone] Closing statement: Results or non-symptom based questions: Thank you for calling [facility], your call will be returned within the next business day. Ariela Saenz documented in this encounterMccullough-[facility]07-02-2024 Instructions* Patient Instructions* Delisa Estrella DO - 03/11/2024 1:00 PM EDT Discussed with Saba (your nursing securities supervisor at [facility] the following recommendations: - continue care with Dr Saldaña/NEERAJ at [facility]. - would recommend Dr Saldaña/NEERAJ evaluation of leg swelling very soon. Give consideration to cardiology evaluation - consider cutting back on carbohydrates at meals. Consider more protein intake at meals. 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 One close place to your living facility is: [facility] in [place] Dr Rosario documented in this encounterMccullough[facility]07-02-2024 History of Present illness Narrative* Delisa Estrella DO - 03/11/2024 10:20 AM EDT Yaa Ward is a 83 year old female presenting for evaluation Patient is wishing to reestablish care-she recently moved to [facility] Last office visit with me was on 03/01/2021 Pt currently lives at an assisted living facility " [facility]" in [place] where she follows with a CLOUD ARCHITECT and with PCP Dr Saldaña. I have [...] Dr Rojas. Previous PCP Dr Ragsdale (in [place]) retired 2 yrs ago New PCP Dr Saldaña at [facility]". States has only met the physician on time. Follows most of the time with NEERAJ Noa at [facility] Services: at her Assisted living facility - [...] Protonix 40 mg daily dose Since in [place] she has not seen a GI as advised that there is no GI provider in [place]. After discussion I did place a call and found closest GI provider in [facility] in [place] Phone number: [phone] Rosario Pt aware and will try to schedule an appt. Pt is aware that I did speak with nursing supervisore Saba at [facility]. DENIES: fever, chills, weight changes, night sweats, [...] 1 tablet by mouth once daily. vit C,S-Av-ginls-lutein-zeaxan (PRESERVISION AREDS-2) 250-90-40-1 mg Take by mouth. [...] Take 2,000 Units by mouth once daily. Elkins-3 Fatty Acids-Vitamin E (FISH OIL) 1,000 mg cap Take 1 capsule by mouth once daily. LUTEIN ORAL Take by mouth. ALLERGIES: ALLERGIES Allergen Reactions Tgqsnkz-Gcz-Jse Red* Other: See Comments Lethargic, and muscle [...] discussed with pt and with Saba at [facility] my advise that I would advise pt to follow up her her PCP at [facility] re: peripheral edema despite her HCTZ 50 mg daily dose. Would strongly consider provider to consider insole and heel stiffener re: peripheral edema . [facility] 2. Primary hypertension - ICD9: [...] ICD9: 530.85, ICD10: K22.719 - spoke with [facility] - strongly encouraged GI consult. Spoke with pt and Saba at [facility] and related she'd discuss with PCP Dr Saldaña. 6. Mixed hyperlipidemia - ICD9: 272.2, ICD10: E78.2 7. Anxiety and depression - ICD9: 300.00, 311, ICD10: F41.9, F32.A - follow up with psychiatry dept as planned and med as prescribed. I spent a total of >60 minutes on the date of the service which included preparing to see the patient, jfmf-ph-uwuq patient care, completing clinical documentation, obtaining and/or reviewing separately obtained history, performing a medically appropriate examination, counseling and educating the patient/family/caregiver, ordering medications, tests, or procedures, communicating with other HCPs Nursing securities supervisor Saba at [facility] and also [facility] in [place](notseparately reported), independently interpreting results (not separately reported), communicating re sults to the patient/family/caregiver, and care coordination (not separately reported). Return to office as needed. Strongly encouraged pt to follow up with PCP Dr Saldaña re: peripheral edema lower extremities and to follow up on Garcia's esophagus spoke to nursing securities supervisor at [facility] re: Saba states she will speak with Dr Saldaña and physician assistance regarding. . Portions of this note have been composed using voice recognition and may contain donation worker errors Delisa Estrella DO documented in this encounterMccullough-[facility]07-02-2024 NoteHNO ID: [id number] Author: DELISA ESTRELLA DO Service: ? Author Type: Physician Type: Progress Notes Filed: 03/16/2024 21:28 Note Text: Yaa Ward is a 83 year old female presenting for evaluation Patient is wishing to reestablish care-she recently moved to [facility] Last office visit with me was on 03/01/2021 Pt currently lives at an assisted living facility " [facility]" in [place] where she follows with a CLOUD ARCHITECT and with PCP Dr Saldaña. I have [...] Dr Rojas. Previous PCP Dr Ragsdale (in [place]) retired 2 yrs ago New PCP Dr Saldaña at [facility]". States has only met the physician on time. Follows most of the time with CLOUD ARCHITECT Noa at [facility]: at her Assisted living facility - [...] that there is no GI provider in [place]. After discussion I did place a call and found closest GI provider in [facility] in [place] Phone number: [phone] Rosario Pt aware and will try to schedule an appt. Pt is aware that I did speak with nursing supervisore Saba at [facility]. DENIES: fever, chills, weight changes, night sweats, [...] COMPARTMENTS 05/25/2005 left total knee arthroplasty ARTHRP JOSE CONDYLEANDPLATU MEDIALANDLAT COMPARTMENTS 09/10/2014 right knee EXTENSIVE [...] once daily. pregabalin (LYRICA (more content not included)...[facility] 03-11-2024 Telephone encounter Note* Telephone Encounter - Ariela Saenz - 03/11/2024 10:04 AM EDT Saba [facility] is calling Delisa Estrella DO today with concern regarding appointment today. Patient lives in a facility right now and the manager baby of the facility is calling and states [...] of symptoms: N/A Any questions, please call [phone] Closing statement: Results or non-symptom based questions: Thank you for calling [facility], your call will be returned within the next business day. Ariela Saenz [facility]04-11-2024 Miscellaneous Notes* Telephone Encounter - Kay Cummins - 12/20/2023 8:43 AM EDT Patient called back and is scheduled on 03/11/24. * Telephone Encounter - Kay Cummins - 12/19/2023 12:[address] Estrella advised she would accept patient back to re-establish care. Tried to reach patient at both numbers listed in [facility]. Was connected with [facility] and advised that we need to contact Ariadna at [phone], who handles all patient scheduling and transport. [...] calling: self Call patient at: at home [phone] (home) [phone] (cell) Was an appointment scheduled: No Closing statement: Results or non-symptom based questions: Thank you for calling [facility], your call will be returned within the next business day. Reena Campo Pss documented in this encounterMccullough-[facility]03-29-2024 NoteHNO ID: [id number] Author: VINOD ROJAS MD Service: ? Author [...] Vinod Rojas M.D. December 07, 2023 11:14 [facility]03-15-2024 NoteHNO ID: [id number] Author: VINOD ROJAS MD Service: ? Author [...] Vinod Rojas M.D. November 23, 2023 9:55 [facility]03-15-2024 History of Present illness Narrative * [...] 23, 2023 9:55 AM documented in this encounterMccullough-[facility]03-12-2024 Miscellaneous Notes* Telephone Encounter - Patience Lin - 11/20/2023 4:58 PM EDT [facility] where Pt resides asked that any RX or speical instruction and rX orders post op instructions to be faxed to them at [phone] to her floor which is [facility]: (To contact the nurse ph no is ) documented in this encounterMccullough-[facility]02-02-2024 Miscellaneous Notes* Telephone Encounter - Kelsey Garza - 10/12/2023 5:03 PM EST Taken care of. spoke to production scheduler. * Telephone Encounter - Estefany Kelsey Tilley - 10/12/2023 11:07 AM EST [facility] returned call to set up surgery. Please call again at [phone] documented in this encounterMccullough-[facility]01-09-2024 NoteHNO ID: [id number] Author: VINOD ROJAS MD Service: ? Author [...] Vinod Rojas M.D. September 18, 2023 11:17 [facility]09-07-2021 NoteHNO ID: [id number] Author: Baldo Whitney MD Service: General Internal [...] MD DATE: May 17, 2021 TIME: 2:58 [facility]09-07-2021 NoteHNO ID: [id number] Author: Nikkie Chery RN Service: Care Management Author Type: Registered Nurse Type: Care Mgt Progress Note Filed: 05/17/2021 12:49 PM Note Text: CARE MANAGEMENT DISCHARGE NOTE SERVICE DATE: 05/17/2021 SERVICE TIME: 12:47 LOS: 0 days Admission Date: 05/15/2021 DISCHARGE ARRANGEMENT (list agency and phone number) Discharge Arrangement: residential facility Was an expedited discharge program used?: [...] to: Other Caregiver Other Caregiver Name/Phone: Josy bowles [facility] TRANSPORTATION ARRANGEMENTS: Transportation Arrangements: Ambulance/[place] Transportation Agency and Phone #:: [facility] [phone] Date of Trip: 05/17/21 Time of Trip: 1600 Type of Service: BLS Non-emergency Is Patient Medicaid Pending?: No Discussion of financial coverage occurred with: PRESTON Buttoner Location: [facility] Destination: [facility] Financial Care Management Responsibility: None ADDITIONAL CONTACT RESOURCES: Discharge Information Row Name Admission (Current) from 05/15/2021 in [facility] Observation Unit Transportation Agency M[facility] Transport Arranged To: [facility] Agency [facility] Caregiver is ready, willing and able to meet the patient's needs as recommended by the inter-professional team:: Yes Does the patient have an acute stroke diagnosis, or has the patient had a stroke during this admission?: No Needs Prior to Discharge: Ready for Discharge;Discharge Transportation Transportation Arrangements: Ambulance/[facility] Transportation Agency and Phone #:: [facility] [phone] Date of Trip: 05/17/21 Time of Trip: 1600 Type of Service: BLS Non-emergency Is Patient Medicaid Pending?: No Discussion of financial coverage occurred with: POA Buttoner Location: [facility] Destination: [facility] and [facility] [place] Financial Care Management Responsibility: None IMM Follow Up Copy Given: No Reason: Other: See Comment (OBSERVATION) Patient discharged to [facility], clinical updates sent. Pt's sonMickey was called and made aware of time of transfer. Summary of Care routed to providers. [facility] will package pick up patient at 16:00. SIGNATURE: Nikkie Chery RN PATIENT NAME: Yaa Ward DATE: May 17, 2021 TIME: 12:46 PM PAGER/CONTACT #: [phone] NoteHNO ID: [id number] Author: Nikkie Chery RN Service: Care Management Author Type: Registered Nurse Type: Care Mgt Progress Note Filed: 05/17/2021 10:40 AM Note Text: CARE MANAGEMENT PROGRESS NOTE SERVICE DATE: 05/17/2021 SERVICE TIME: 10:38 LOS: 0 days [place] of Choice Given: Yes Level of Care Discussed: Prison Facility Financial Disclosure Provided: No Provider List: Prison Facility Provider list within the patient's requested geographic area shared with the patient/family: Yes within: 5 miles of zip code: [address] Quality and resource use metrics shared with the patient that are relevant to the patient's goals of care and treatment preferences:: Yes Metrics: Skin Integrity;Potentially Preventable 30-day Post Discharge Readmission Rates;Functional Status;Discharge to Community Needs Prior to Discharge: To Be Determined;Precertification;Accepting Facility Spoke with pt's sonMickey regarding facility choices for SNF placement. Pt's son has chosen [facility] and [place]. Referrals sent. [facility] accepted patient upon discharge, facility will start precert. [facility] tasked for precert/7000. CM will follow. 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 Last discharge within 30 days: No Advance Directive: Current Advance Directive: Health Care Power of Pouncer In Chart: Yes Up To Date and [...] Extended Emergency Contact Information Primary Emergency Contact: Sylvia Joaquin Creston Mobile Relation: Son Secondary Emergency Contact: SYLVIACAROLYN Mobile Relation: Daughter Supportive Patient Contact:: Yes [...] Completely I feel financially burdened by my [id number] expenses for my prescription medication:: 0 - Disagree Completely Risk Score: 0 Patient is categorized as: Low risk < 2 Are you interested in bedside delivery of your medications? No Is Patient Psychosocially Complex?: No ASSESSMENT AND PLAN: Medical Needs: Medical Needs: None Psychosocial Needs: Psychosocial Needs: None FREEDOM OF CHOICE EXPLAINED: Gal[place] of Choice Given: Yes Level of Care Discussed: Prison Facility Financial Disclosure Provided: No Provider List: Prison Facility Provider list within the patient's requested geographic area shared with the patient/family: Yes within: 25 miles of zip code: ([address]) Quality and resource use metrics shared with the patient that are relevant to the patient's goals of care and treatment preferences:: Yes Metrics: Skin Integrity;Functional Status;Potentially Preventable 30-day Post Discharge Readmission Rates POTENTIAL TRANSITION PLANS Prison Facility/Intermediate Care Facility Patient went home from a previous hopital stay and now back in the [facility]. Spoke with DIL and SNF provider list emailed to [email or web address]. SIGNATURE: Aman Robertson RN PATIENT NAME: Yaa Ward DATE: 2021 TIME: 10:26 AM PAGER/CONTACT #: [phone] Note HNO ID: [id number] Author: Kathy Delvalle RN Service: Care Management [...] 15, 2021 TIME: 12:27 PM PAGER/CONTACT #: [phone] NoteHNO ID: [id number] Author: Mika Borjas MD Service: Hospital Medicine Author Type: Physician Type: Progress Notes Filed: 05/14/2021 2:02 PM Note Text: DEPARTMENT OF HOSPITAL MEDICINE PROGRESS NOTE SERVICE DATE: 05/14/2021 SERVICE TIME: 1:56 PM Hospital Medicine/Primary Attending: Mika Borjas MD NIGHT AND WEEKEND COVERAGE: Patient admitted to 4. Please page [phone] from 7a-5p for patient issues. From 5p-7am, page the night hospitalist on pager [phone] for patient issues. Subjective INTERVAL HPI: Patient [...] Prophylaxis: VTE prophylaxis appropriate Disposition: Home with [facility] Plan of care discussed with: Provider, Patient and RN SIGNATURE: Mika Borjas MD PATIENT NAME: Yaa Ward DATE: May 14, 2021 TIME: 1:56 PM etx [id number] NoteHNO ID: [id number] Author: Genoveva Porras RN Service: Care Management [...] 13, 2021 TIME: 2:56 PM PAGER/CONTACT #: [phone] NoteHNO ID: [id number] Author: Toby Shore MD Service: Hospital Medicine Author Type: Physician Type: Progress Notes Filed: 05/13/2021 5:55 PM Note Text: DEPARTMENT OF HOSPITAL MEDICINE PROGRESS NOTE SERVICE DATE: 05/13/2021 SERVICE TIME: 8:59 Am Hospital Medicine/Primary Attending: Toby Shore MD Dr Clint will be assuming care in Am NIGHT AND WEEKEND COVERAGE: [facility] COVERAGE: Patient admitted to [facility] From 0700 - 1630, please contact pager [phone] for patient issues. From 1630 - 07, please contact the Night Hospitalist on pager [phone] for patient issues. Subjective INTERVAL HPI: abd [...] Units SUBCUTANEOUS EVERY 12 HOURS Given, 05/12 230305/12/21 0043 -- VTE Prophylaxis: VTE prophylaxis appropriate Disposition: Home Plan of care discussed with: Provider, RN, Patient SIGNATURE: Toby Shore MD PATIENT NAME: Yaa Ward DATE: May 13, 2021 TIME: 5:55 PM etx [id number] NoteHNO ID: [id number] Author: Toby Shore MD Service: Hospital Medicine Author Type: Physician Type: Progress Notes Filed: 05/12/2021 3:54 PM Note Text: DEPARTMENT OF HOSPITAL MEDICINE PROGRESS NOTE SERVICE DATE: 05/12/2021 SERVICE TIME: 3:39 PM Hospital Medicine/Primary Attending: Toby Shore MD NIGHT AND WEEKEND COVERAGE: [facility] COVERAGE: Patient admitted to [facility] From 00 - 163, please contact pager [phone] for patient issues. From 163 - 699, please contact the Night Hospitalist on pager [phone] for patient issues. 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 Advance Directive: Current Advance Directive: Health Care Power of Pouncer In Chart: Yes Up To Date and Valid: No Advertising Layout Worker Attempted to Assist with AD Completion: Yes [...] Completely I feel financially burdened by my ehi-gz-[id number] expenses for my prescription medication:: 0 - [...] 2021 TIME: 10:12 AM PAGER/CONTACT #: Office [phone] Cell/Text [phone] History of Present illness Narrative* Ina Bustillo [...] 28, 2021 12:12 PM [facility] of Past illness Narrative* Problem Noted Date Diagnosed Date Resolved Date Sacroiliitis 05/03/2018 02/17/2021 Overview: Added automatically from request for surgery [id number] Benign essential HTN 07/29/2015 021 Mixed hyperlipidemia [...] of this encounter (statuses as of 07/15/2023) [facility] History of Past illness Narrative* Problem Noted Date Diagnosed Date Resolved Date Sacroiliitis 05/03/2018 02/17/2021 Overview: Added automatically from request for surgery [id number] Benign essential HTN 07/29/2015 021 Mixed hyperlipidemia [...] of this encounter (statuses as of 10/13/2023) [facility] of Past illness Narrative* Problem Noted Date Diagnosed Date Resolved Date Sacroiliitis 05/03/2018 02/17/2021 Overview: Added automatically from request for surgery [id number] Benign essential HTN 07/29/2015 021 Mixed hyperlipidemia [...] of this encounter (statuses as of 11/23/2023) [facility] History of Past illness Narrative* Problem Noted Date Diagnosed Date Resolved Date Sacroiliitis 05/03/2018 02/17/2021 Overview: Added automatically from request for surgery [id number] Benign essential HTN 07/29/2015 021 Mixed hyperlipidemia [...] of this encounter (statuses as of 11/28/2023) [facility] of Past illness Narrative* Problem Noted Date Diagnosed Date Resolved Date Sacroiliitis 05/03/2018 02/17/2021 Overview: Added automatically from request for surgery [id number] Benign essential HTN 07/29/2015 021 Mixed hyperlipidemia [...] of this encounter (statuses as of 12/20/2023) [facility] noteNo assessment information availableWGalion Hospital Work Phone: Evaluation note* Diagnosis Inflammatory arthritis Unspecified inflammatory polyarthropathy documented in this encounter [facility] Diagnosis Pseudophakia of right eye- Primary Lens replaced by other means Nuclear sclerotic cataract of left eye Senile nuclear sclerosis Nuclear senile cataract of both eyes documented in this encounter [facility] Diagnosis Peripheral edema- Primary Edema Primary hypertension Unspecified essential hypertension Chronic neck pain Cervicalgia Obesity, Class III, BMI 40-49.9 (morbid obesity) (HCC) Morbid obesity Garcia's esophagus with dysplasia Garcia's esophagus Mixed hyperlipidemia Anxiety and depression Dysthymic disorder documented in this encounter [facility] Diagnosis 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- Primary Garcia's esophagus Change in voice Other voice and resonance disorders Constipation, unspecified constipation type documented in this encounter [facility]* Diagnosis 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 Lens replaced by other means documented in this encounter [facility]* Name Dates Details Instructions not documented [facility] Work Phone: Reason for referral (narrative)* Outpatient Procedure (Routine) - New Request Specialty Diagnoses / Procedures Referred By Denae chu Referred To Contact [facility] Diagnoses 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 Procedures EGD DIAGNOSTIC ESOPHAGOGASTRODUODENOS COPY TRANSORAL DIAGNOSTIC Duc Payan APRN.CNP [address] [place] [address] [facility] [address] [place] [address] Referral ID Status Reason Start Date Expiration Date Visits Requested Visits Authorized [id number] New Request Auto-Generat ed Referral 04/24/2024 04/24/2025 1 1 [facility] for referral (narrative)No reason for referral information availableWGalion Hospital Work Phone: Summary Purpose Family History [...] FoundDocuments on File Type Date Recorded 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 Expl anation Advance Directive(s) 02/19/2013 6:16 AM Documents on File Type Date Recorded 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 Expl anation Advance Directive(s) 11/06/2023 11:37 AM Advance Directive(s) 02/19/2013 6:16 AM Documents on File Type Date Recorded 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 Expl anation Advance Directive(s) 11/06/2023 11:37 AM Advance Directive(s) 02/19/2013 6:16 AM Chief Complaint and Reason for Visit Chief Complaint FPC LAB WOR K FPC LABWORK Chief Complaint FPC LABWORK Chief Complaint FPC LABWORK NEW CONCERN FPC LAB WORK FPC LABWORK FPC LABWORK Chief Complaint FPC LABWORK NEW CONCERN FPC LAB WORK FPC LABWORK ANNUAL EXAM FPC LABWORK FPC LABWORK Chief Complaint FPC LABWORK NEW CONCERN FPC LAB WORK FPC LABWORK ANNUAL EXAM FPC LABWORK FPC LABWORK FPC LABWORK Chief Complaint FPC LABWORK FPC LABWORK LABWORK LABWORK Chief Complaint LABWORK LABWORK FPC LAB WORK Chief Complaint Admit Date LABWORK August 18, 2024 5 :00am LABWORK August 27, 2024 5:00am FPC LAB WORK September 15, 2024 5:00am FPC LAB WORK September 24, 2024 5:00am FPC LAB WORK October 08, 2024 5:00am FPC LAB WORK October 13, 2024 5:00am LABWORK October 20, 2024 5:00am FPC LAB WORK October 22 5:00am FPC LAB WORK November 05 5:00am LABWORK November 10, 2024 5:00 am FPC LAB WORK November 19, 2024 5 :00am Chief Complaint Admit Date FPC LAB WORK September 15, 2024 5:00am FPC LAB WORK September 24, 2024 5:00am FPC LAB WORK October 08, 2024 5:00am FPC LAB WORK October 13, 2024 5:00am LABWORK October 20, 2024 5:00am FPC LAB WORK October 22 5:00am FPC LAB WORK November 05 5:00am LABWORK November 10, 2024 5:00 am FPC LAB WORK November 19, 2024 5 :00am FPC LAB WORK December 03, 2024 5 :00am LEFT SHOULDER December 22, 2024 3:0 8pm Room 3 December 22, 2024 3:1 5pm Reason for Visit Admit Date Left shoulder pain December 22, 2024 3:0 8pm Primary osteoarthritis, left shoulder Ap ril 2024 3:08pm Chief Complaint Admit Date FPC LAB WORK September 24, 2024 5:00am FPC LAB WORK October 08, 2024 5:00am FPC LAB WORK October 13, 2024 5:00am LABWORK October 20, 2024 5:00am FPC LAB WORK October 22 5:00am FPC LAB WORK November 05 5:00am LABWORK November 10, 2024 5:00 am FPC LAB WORK November 19, 2024 5 :00am FPC LAB WORK December 03, 2024 5 :00am FPC LABWORK December 08, 2024 5: 00am FPC LAB WORK December 17, 2024 5: 00am LEFT SHOULDER December 22, 2024 3:0 8pm Room 3 December 22, 2024 3:1 5pm FPC LAB WORK January 05, 2025 4 :00am GERD, DYSPHAGIA January 09, 2025 3:24pm Reason for Visit Admit Date Left shoulder pain December 22, 2024 3:0 8pm Primary osteoarthritis, left shoulder Ap ril 2024 3:08pm Garcia's esophagus January 09, 2025 3:24pm Chief Complaint Admit Date FPC LAB WORK September 24, 2024 5:00am FPC LAB WORK October 08, 2024 5:00am FPC LAB WORK October 13, 2024 5:00am LABWORK October 20, 2024 5:00am FPC LAB WORK October 22 5:00am FPC LAB WORK November 05 5:00am LABWORK November 10, 2024 5:00 am FPC LAB WORK November 19, 2024 5 :00am FPC LAB WORK December 03, 2024 5 :00am FPC LABWORK December 08, 2024 5: 00am NEW CONCERN December 10, 2024 4:22 pm FPC LAB WORK December 17, 2024 5: 00am LEFT SHOULDER December 22, 2024 3:0 8pm Room 3 December 22, 2024 3:1 5pm FPC LAB WORK January 05, 2025 4 :00am GERD, DYSPHAGIA January 09, 2025 3:24pm Chief Complaint Admit Date FPC LAB WORK September 24, 2024 5:00am FPC LAB WORK October 08, 2024 5:00am FPC LAB WORK October 13, 2024 5:00am LABWORK October 20, 2024 5:00am FPC LAB WORK October 22 5:00am FPC LAB WORK November 05 5:00am LABWORK November 10, 2024 5:00 am FPC LAB WORK November 19, 2024 5 :00am FPC LAB WORK December 03, 2024 5 :00am FPC LABWORK December 08, 2024 5: 00am NEW CONCERN December 10, 2024 4:22 pm FPC LAB WORK December 17, 2024 5: 00am LEFT SHOULDER December 22, 2024 3:0 8pm Room 3 December 22, 2024 3:1 5pm LABWORK December 31, 2024 5:0 0am FPC LAB WORK January 05, 2025 4 :00am GERD, DYSPHAGIA January 09, 2025 3:24pm Chief Complaint Admit Date FPC LAB WORK October 08, 2024 5:00am FPC LAB WORK October 13, 2024 5:00am LABWORK October 20, 2024 5:00am FPC LAB WORK October 22 5:00am FPC LAB WORK November 05 5:00am LABWORK November 10, 2024 5:00 am FPC LAB WORK November 19, 2024 5 :00am FPC LAB WORK December 03, 2024 5 :00am FPC LABWORK December 08, 2024 5: 00am NEW CONCERN December 10, 2024 4:22 pm FPC LAB WORK December 17, 2024 5: 00am LEFT SHOULDER December 22, 2024 3:0 8pm Room 3 December 22, 2024 3:1 5pm LABWORK December 31, 2024 5:0 0am LABWORK January 02, 2025 5:0 0am FPC LAB WORK January 05, 2025 4 :00am GERD, DYSPHAGIA January 09, 2025 3:24pm Chief Complaint Admit Date FPC LAB WORK October 13, 2024 5:00am LABWORK October 20, 2024 5:00am FPC LAB WORK October 22 5:00am FPC LAB WORK November 05 5:00am LABWORK November 10, 2024 5:00 am FPC LAB WORK November 19, 2024 5 :00am FPC LAB WORK December 03, 2024 5 :00am FPC LABWORK December 08, 2024 5: 00am NEW CONCERN December 10, 2024 4:22 pm FPC LAB WORK December 17, 2024 5: 00am LEFT SHOULDER December 22, 2024 3:0 8pm Room 3 December 22, 2024 3:1 5pm LABWORK December 31, 2024 5:0 0am LABWORK January 02, 2025 5:0 0am FPC LAB WORK January 05, 2025 4 :00am GERD, DYSPHAGIA January 09, 2025 3:24pm LABWORK January 14, 2025 5:00am Chief Complaint Admit Date FPC LAB WORK November 05 5:00am LABWORK November 10, 2024 5:00 am FPC LAB WORK November 19, 2024 5 :00am FPC LAB WORK December 03, 2024 5 :00am FPC LABWORK December 08, 2024 5: 00am NEW CONCERN December 10, 2024 4:22 pm FPC LAB WORK December 17, 2024 5: 00am LEFT SHOULDER December 22, 2024 3:0 8pm Room 3 December 22, 2024 3:1 5pm LABWORK December 31, 2024 5:0 0am LABWORK January 02, 2025 5:0 0am FPC LAB WORK January 05, 2025 4 :00am GERD, DYSPHAGIA January 09, 2025 3:24pm LABWORK January 14, 2025 5:00am FPC LAB WORK January 19, 2025 5:0 0am FPC LAB WORK January 28, 2025 5:0 0am Chief Complaint Admit Date FPC LAB WORK December 03, 2024 5 :00am FPC LABWORK December 08, 2024 5: 00am NEW CONCERN December 10, 2024 4:22 pm FPC LAB WORK December 17, 2024 5: 00am LEFT SHOULDER December 22, 2024 3:0 8pm Room 3 December 22, 2024 3:1 5pm LABWORK December 31, 2024 5:0 0am LABWORK January 02, 2025 5:0 0am FPC LAB WORK January 05, 2025 4 :00am GERD, DYSPHAGIA January 09, 2025 3:24pm LABWORK January 14, 2025 5:00am FPC LAB WORK January 19, 2025 5:0 0am FPC LAB WORK January 28, 2025 5:0 0am FPC LAB WORK February 03, 2025 5:0 0am LABWORK February 11, 2025 5:00a m New Concern February 24, 2025 4:18 pm FPC LAB WORK February 25, 2025 4: 00am FPC LAB WORK March 02, 2025 5: 00am FPC LAB WORK March 09, 2025 7: 30pm Chief Complaint Admit Date LABWORK February 11, 2025 5:00a m New Concern February 24, 2025 4:18 pm FPC LAB WORK February 25, 2025 4: 00am FPC LAB WORK March 02, 2025 5: 00am FPC LAB WORK March 09, 2025 7: 30pm LABWORK March 30, 2025 5:00 am LABWORK April 20, 2025 5: 00am FPC LAB WORK April 27, 2025 5:00am FPC LAB WORK May 25 5:00am NEW CONCERN May 26, 2025 6:04pm Chief Complaint Admit Date New Concern February 24, 2025 4:18 pm FPC LAB WORK February 25, 2025 4: 00am FPC LAB WORK March 02, 2025 5: 00am FPC LAB WORK March 09, 2025 7: 30pm LABWORK March 30, 2025 5:00 am LABWORK April 20, 2025 5: 00am FPC LAB WORK April 27, 2025 5:00am FPC LAB WORK May 25 5:00am NEW CONCERN May 26, 2025 6:04pm Additional Source Comments INFORMATION SOURCE (unrecogn ized section and content) DATE CREATED AUTHOR 12/13/2018 [facility] DATE CREATED AUTHOR AUTHOR'S ORGANIZ ATION 12/16/2018 [facility] DATE CREATED AUTHOR AUTHOR'S ORGANIZ ATION 2021 [facility] DATE CREATED AUTHOR AUTHOR'S ORGANIZ ATION 05/18/2021 [facility] DATE CREATED AUTHOR AUTHOR'S ORGANIZ ATION 08/22/2024 [facility] DATE CREATED AUTHOR AUTHOR'S ORGANIZ ATION 07/15/2025 [facility] Goals (unrecognized section and content) Goals may [...] December 10, 2024 End: December 10, 2024 DEWAYNE Ayala NPC Attending Provider Active Start: December 10, 2024 [...] MD Primary Care Provider Active Regine Morales NP ROOFER HELPER VINYL COATING-C Attending Provider Active Team Status: Active Member [...] Provider Active KONRAD SÁNCHEZ Attending Provider Active Lead Teller Relationship Specialty Start Date End Date Delisa Estrella, DO [address] [place] [address] PCP - General Family Medicine 03/01/21 Team Status: Inactive Member Role Status Dates Dr. Aman Ragsdale MD Primary Care Provider Active Dr. Rodrigue Saldaña MD Attending Provider Active Team Status: Active Member Role Status Dates Dr. Aman Ragsdale MD Primary Care Provider Active Rodrigue DONOVAN MD Attending Provider Active Lead Teller Relationship Specialty Start Date End Date Delisa Estrella DO [address] [place] [address] PCP - General Family Medicine 03/01/21 Lead Teller Relationship Specialty Start Date End Date Olejaspreete, Efewongbe [address] [place] [address] PCP - General 11/16/23 Lead Teller Relationship Specialty Start Date End Date Oleghe, Efewongbe [address] [place] [address] PCP - General 11/16/23 Lead Teller Relationship Specialty Start Date End Date Oleghe, Efewongbe PCP - General 11/16/23 Lead Teller Relationship Specialty Start Date End Date Aren Saldañamaryann PCP - General 11/16/23 Lead Teller Relationship Specialty Start Date End Date Aren Saldañamaryann PCP - General 11/16/23 Lead Teller Relationship Specialty Start Date End Date Aren Saldañamaryann PCP - General 11/16/23 Lead Teller Relationship Specialty Start Date End Date Aren [...] Provider Active Start: December 17, 2024 Regine Tickton OLS, ROOFER HELPER VINYL COATING-C Attending Provider Active Start: December 17, 2024 Team Status: Active Member Role/Relationship Status Dates Dr. Rodrigue Saldaña MD Primary Care Provider Active Team Status: Inactive Member Role/Relationship Status Dates Dr. Rodrigue Saldaña MD Primary Care Provider Active Start: December 03, 2024 End: December 03, 2024 Regine DONOVAN NP-C Attending Provider Active Start: December 03, 2024 [...] End: December 10, 2024 Regine Morales NP ROOFER HELPER VINYL COATING-C Attending Provider Active Start: December 10, 2024 End: December 10, 2024 Team Status: Inactive Member Role/Relationship Status Dates Dr. Rodrigue Saldaña MD Primary Care Provider Active Start: December 17, 2024 End: December 17, 2024 Regine DONOVAN NP-C Attending Provider Active Start: December 17, 2024 [...] February 24, 2025 End: February 24, 2025 Reigne Morales NP ROOFER HELPER VINYL COATING-C Attending Provider Active Start: February 24, 2025 End: February 24, 2025 Team Status: Active Member Role/Relationship Status Dates Dr. Rodrigue Saldaña MD Primary Care Provider Active Start: February 25, 2025 Regine DONOVAN ROOFER HELPER VINYL COATING-C Attending Provider Active Start: February 25, 2025 Regine DONOVAN ROOFER HELPER VINYL COATING-C Referring Provider Active Start: February 25, 2025 [...] Attending Provider Active Start: March 30, 2025 Team Status: Active Member Role/Relationship Status Dates Dr. Rodrigue Saldaña MD Primary care physician Activ e Team Status: Active Member Role/Relationship Status Dates Dr. Rodrigue Saldaña MD Primary care physician Activ e Start: February 11, 2025 Rodrigue DONOVAN MD Attending physician Active Start: February 11, 2025 Team Status: Inactive Member Role/Relationship Status Dates Dr. Rodrigue Saldaña MD Primary care physician Activ e Start: February 24, 2025 End: February 24, 2025 Regine Morales NP ROOFER HELPER VINYL COATING-C Attending physician Active Start: February 24, 2025 End: February 24, 2025 Team Status: Active Member Role/Relationship Status Dates Dr. Rodrigue Saldaña MD Primary care physician Activ e Start: February 25, 2025 Regine DONOVAN NP-C Attending physician Active Start: February 25, 2025 Regine DONOVAN NP-Gracia Referring Provider Active Start: February 25, 2025 Team Status: Active Member Role/Relationship Status Dates Dr. Rodrigue Saldaña MD Primary care physician Activ e Start: March 02, 2025 Rodrigue DONOVAN MD Attending physician Active Start: March 02, 2025 Team Status: Active Member Role/Relationship Status Dates Dr. Rodrigue Saldaña MD Primary care physician Activ e Start: March 09, 2025 Rodrigue DONOVAN MD Attending physician Active Start: March 09, 2025 Team Status: Inactive Member Role/Relationship Status Dates Dr. Rodrigue Saldaañ MD Primary care physician Activ e Start: March 10, 2025 Dr. Candis Jordan MD Attending physician Active Start: March 10, 2025 Team Status: Active Member Role/Relationship Status Dates Dr. Rodrigue Saldaña MD Primary care physician Activ e Start: March 30, 2025 Rodrigue DONOVAN MD Attending physician Active Start: March 30, 2025 Team Status: Active Member Role/Relationship Status Dates Dr. Rodrigue Saldaña MD Primary care physician Activ e Start: April 20, 2025 Rodrigue DONOVAN MD Attending physician Active Start: April 20, 2025 Team Status: Active Member Role/Relationship Status Dates Dr. Rodrigue Saldaña MD Primary care physician Activ e Start: April 27, 2025 Rodrigue DONOVAN MD Attending physician Active Start: April 27, 2025 Team Status: Active Member Role/Relationship Status Dates Dr. Rodrigue Saldaña MD Primary care physician Activ e Start: May 25, 2025 Rodrigue DONOVAN MD Attending physician Active Start: May 25, 2025 Team Status: Inactive Member Role/Relationship Status Dates Dr. Rodrigue Saldaña MD Primary care physician Activ e Start: May 26, 2025 End: May 26, 2025 Regine Morales NP ROOFER HELPER VINYL COATING-C Attending physician Active Start: May 26, 2025 End: May 26, 2025 Team Status: Inactive Member Role/Relationship Status Dates Dr. Rodrigue Saldaña MD Primary care physician Activ e Start: February 24, 2025 End: February 24, 2025 Regine Morales NP ROOFER HELPER VINYL COATING-C Attending physician Active Start: February 24, 2025 End: February 24, 2025 Team Status: Active Member Role/Relationship Status Dates Dr. Rodrigue Saldaña MD Primary care physician Activ e Start: February 25, 2025 Regine DONOVAN NP-C Attending physician Active Start: February 25, 2025 Regine DONOVAN NP-Gracia Referring Provider Active Start: February 25, 2025 Team Status: Active Member Role/Relationship Status Dates Dr. Rodrigue Saldaña MD Primary care physician Activ e Start: March 02, 2025 Rodrigue DONOVAN MD Attending physician Active Start: March 02, 2025 Team Status: Active Member Role/Relationship Status Dates Dr. Rodrigue Saldaña MD Primary care physician Activ e Start: March 09, 2025 Rodrigue DONOVAN MD Attending physician Active Start: March 09, 2025 Team Status: Inactive Member Role/Relationship Status Dates Dr. Rodrigue Saldaña MD Primary care physician Activ e Start: March 10, 2025 Dr. Candis Jordan MD Attending physician Active Start: March 10, 2025 Team Status: Inactive Member Role/Relationship Status Dates Dr. Rodrigue Saldaña MD Primary care physician Activ e Start: March 30, 2025 End: March 30, 2025 Rodrigue DONOVAN MD Attending physician Active Start: March 30, 2025 End: March 30, 2025 Team Status: Active Member Role/Relationship Status Dates Dr. Rodrigue Saldaña MD Primary care physician Activ e Start: April 20, 2025 Rodrigue DONOVAN MD Attending physician Active Start: April 20, 2025 Team Status: Active Member Role/Relationship Status Dates Dr. Rodrigue Saldaña MD Primary care physician Activ e Start: April 27, 2025 Rodrigue DONOVAN MD Attending physician Active Start: April 27, 2025 Team Status: Active Member Role/Relationship Status Dates Dr. Rodrigue Saldaña MD Primary care physician Activ e Start: May 25, 2025 Rodrigue DONOVAN MD Attending physician Active Start: May 25, 2025 Team Status: Inactive Member Role/Relationship Status Dates Dr. Rodrigue Saldaña MD Primary care physician Activ e Start: May 26, 2025 End: May 26, 2025 Regine Morales NP, [employer] Attending physician Active Start: May 26, 2025 End: May 26, 2025 Source Comments (unrecognize d section and content) In the event this informatio n is protected by the Federal Confidentiality of Alcohol and Drug Abuse Patient Records regulations: The Federal rules restrict any use of the information to criminally investigate or prosecute any alcohol or drug abuse patient.[facility] the event this information is protected by the Federal Confidentiality of Alcohol and Drug Abuse Patient Records regulations: The Federal rules restrict any use of the information to criminally investigate or prosecute any alcohol or drug abuse patient.[facility] the event this information is protected by the Federal Confidentiality of Alcohol and Drug Abuse Patient Records regulations: The Federal rules restrict any use of the information to criminally investigate or prosecute any alcohol or drug abuse patient.[facility] the event this information is protected by the Federal Confidentiality of Alcohol and Drug Abuse Patient Records regulations: The Federal rules restrict any use of the information to criminally investigate or prosecute any alcohol or drug abuse patient.[facility] the event this information is protected by the Federal Confidentiality of Alcohol and Drug Abuse Patient Records regulations: The Federal rules restrict any use of the information to criminally investigate or prosecute any alcohol or drug abuse patient.[facility] the event this information is protected by the Federal Confidentiality of Alcohol and Drug Abuse Patient Records regulations: The Federal rules restrict any use of the information to criminally investigate or prosecute any alcohol or drug abuse patient.[facility] Hospital[facility] the event this information is protected by the Federal Confidentiality of Alcohol and Drug Abuse Patient Records regulations: The Federal rules restrict any use of the information to criminally investigate or prosecute any alcohol or drug abuse patient.[facility] the event this information is protected by the Federal Confidentiality of Alcohol and Drug Abuse Patient Records regulations: The Federal rules restrict any use of the information to criminally investigate or prosecute any alcohol or drug abuse patient.[facility] the event this information is protected by the Federal Confidentiality of Alcohol and Drug Abuse Patient Records regulations: The Federal rules restrict any use of the information to criminally investigate or prosecute any alcohol or drug abuse patient.[facility] Reason for Visit (unrecogniz ed section and [...] BE BASED ON THE PRIMARY CLINICAL RECORDS. [facility] [employer] [facility]. provides no warranty or guarantee of the accuracy or completeness of information in this document.
[2025-07-20 08:30] LABS: Hematocrit 41.4 % (37-47); Hemoglobin 12.7 g/dL (12.0-15.0); Immature Granulocytes Count 0.020 X10^3/uL (0.0-0.0); Mean Corp Hgb Conc 30.7 g/dL (32-36); Mean Corpuscular Volume 91.6 fL (81-99); Mean Platelet Vol. 9.6 fl (6.2-12.0); NRBC Flagged by Analyzer 0 % (0-5); Platelet Count 138 K/mm3 (150-450); RBC Distribution Width CV 15.9 % (11.6-14.6); RBC Distribution Width SD 53.0 fl (35.1-43.9); Red Blood Count 4.52 M/mm3 (4.2-5.4); White Blood Count 7.3 K/mm3 (4.4-11.0)
[2025-07-20 09:00] LABS: Cholesterol 176 mg/dL (<=200); Low Density Lipoprotein Calc. 105 mg/dL; Triglycerides 162 mg/dL; Very Low Density Lipoprotein 32 mg/dL (5-40); Vitamin B12 451 pg/mL (180-914); Vitamin D,25 Hydroxy 33.7 ng/mL (30-100); cholesterol:hdl ratio screen 4.18
[2025-07-20 09:01] LABS: Anion Gap 14 (5-15); BUN 31 mg/dL (4-19); BUN/Creat Ratio 26.8 RATIO (10-20); Calcium,Total 9.0 mg/dL (7.6-11.0); Carbon Dioxide 20.7 mmol/L (21.0-32.0); Chloride 102 mmol/L (98-108); Glucose 119 mg/dL (70-99); Potassium 4.6 mmol/L (3.3-5.1)
== END ==
LOC: OLS.WHLTSB 05:00
PROVIDERS: PCP Internal Medicine; Visit Provider Internal Medicine
DX: E87.6 Hypokalemia (principal); E78.00 Pure hypercholesterolemia, unspecified; E55.9 Vitamin D deficiency, unspecified
CPT/HCPCS: 36415; 80048; 80061; 82306; 82607; 85025

== ENCOUNTER → 2025-08-17 | Outpatient (REF) | payer MEDICARE, MEDICAID, SELFPAY ==
--- OUTSIDE RECORDS SUMMARY | 2025-08-17 04:19 | XMS RPT_ITS | CCD ---
Author Organization [facility] Care Team Providers Care Processing Operator Name Role Phone Jason Willett Attending Unavailable Reema Cantu Primary Care Unavailable Vinod Fulton MD Unavailable Unavailab Eliseo Cordon MD Unavailable Unavailable Reema Cantu DO Unavailable Unavailable Reema Cantu Unavailable Unavailable Jason Willett MD Unavailable Unavailable Clint Ye MD Unavailable Unavailable Dr. Aman Ragsdale Primary Care Provider Andrew TELEPHONE SERVICES SALES REPRESENTATIVE, TELEPHONE SERVICES SALES REPRESENTATIVE-C Regine Attending Provider Unav lisaable Delisa Estrella DO Primary Care Provider Dr. Aman Ragsdale Primary Care Provider Andrew TELEPHONE SERVICES SALES REPRESENTATIVE, TELEPHONE SERVICES SALES REPRESENTATIVE-C Regine Attending Provider Unav lisaable Dr. Rodrigue [...] FOUNTAIN, Rodrigue Attending Provider Unavaila ble Andrew TELEPHONE SERVICES SALES REPRESENTATIVE-C, Regine Attending Provider [phone] Piper FOUNT[place], Dr. [...] Provider Unavaila Elvi Siddiqui Attending Provider Tickton TELEPHONE SERVICES SALES REPRESENTATIVE-C, Regine Attending Provider Piper FOUNT[place], Dr. Husain Primary Care Provider Piper FOUNTAIN, Rodriuge Attending Provider Unavailannabel Saldaña MD, Dr. Husain Primary Care Provider Piper FOUNT[place], Rodrigue Attending Provider Unavailannabel Saldaña MD, Dr. Husain Primary Care Provider Piper FOUNTAIN, Rodrigue Attending Provider Unavailannabel Saldaña MD, Dr. Husain Primary Care Provider Tickton TELEPHONE SERVICES SALES REPRESENTATIVE-C, Regine Attending Provider [phone] Piper FOUNT[place], Rodrigue Attending Provider Unavaila ble Tickton TELEPHONE SERVICES SALES REPRESENTATIVE-C, Reigne Referring Provider [phone] Nikki F[place], Dr. Chirinos Attending Provider Piper FOUNT[place], Dr. Husain Primary Care Physician Piper FOUNT[place], Rodrigue Attending Physician Unavail able Tickton TELEPHONE SERVICES SALES REPRESENTATIVE-C, Regine Attending Physician [place]ickton TELEPHONE SERVICES SALES REPRESENTATIVE-C, Regine Attending Physician Nikki F[place], Dr. Chirinos Attending Physician Piper F[place], Dr. Husain Primary Care Physician Piper [place], Rodrigue Attending Physician Unavail able Oleghe OLS, Efewongbe Attending Unavailabl e Oleghe, Efewongbe Primary Care Unavailable Oleghe OLS, Efewongbe Attending Unavailabl e Oleghe, Efewongbe Primary Care Unavailable Oleghe, Efewongbe Primary Care Unavailable Bam, Osvaldo Referring Unavailable Bam, Osvaldo Attending Unavailable Oleghe OLS, Efewongbe Attending Unavailabl e Oleghe, Efewongbe Primary Care Unavailable Oleghe OLS, Arenbe Attending Unavailabl e Oleghe, Efewongbe Primary Care Unavailable Oleghe OLS, Teaongbe Attending Unavailabl e Oleghe, Efewongbe Primary Care Unavailable Oleghe OLS, Teaongbe Attending Unavailabl e Oleghe, Efewongbe Primary Care Unavailable Oleghe OLS, Arenbe Attending Unavailabl e Oleghe, Efewongbe Primary Care Unavailable Oleghe, Efewongbe Primary Care Unavailable Oleghe VENUS, Arenbe Attending Unavailabl e Tickton Regine DONOVAN Attending Unavailable Oleghe, Efewongbe Primary Care Unavailable Oleghe OLS, Teaongbe Attending Unavailabl e Oleghe, Efewongbe Primary Care Unavailable Oleghe OLS, Teaongbe Attending Unavailabl e Oleghe, Efewongbe Primary Care Unavailable Oleghe OLS, Efewongbe Attending Unavailabl e Oleghe, Efewongbe Primary Care Unavailable Oleghe OLS, Efjessicaongbe Attending Unavailabl e Oleghe, Efewongbe Primary Care [...] Primary Care Unavailable Oleghe, Efewongbe Referring Unavailable Friend, Miguel Attending Unavailable Oleghe OLS, Efewongbe Attending Unavailabl e Oleghe, Efewongbe Primary Care Unavailable Oleghe OLS, Efewongbe Attending Unavailabl e Oleghe, Efewongbe Primary Care Unavailable Oleghe, Efewongbe Primary Care Unavailable Oleghe, Efewongbe Attending Unavailable Oleghe, Efewongbe Referring Unavailable Tickton Regine DONOVAN Attending Unavailable Oleghe, Efewongbe Primary Care Unavailable Oleghe OLS, Efewongbe Attending Unavailabl e Oleghe, Efewongbe Primary Care Unavailable Oleghe, Efewongbe Primary Care Unavailable Bam, Osvaldo Referring Unavailable Bam, Osvaldo Attending Unavailable Oleghe, Efewongbe Primary Care Unavailable Oleghe OLS, Efewongbe Attending Unavailabl e Oleghe, Efewongbe Primary Care Unavailable Nikkie Robertson NP Attending Unavailable Oleghe, Efewongbe Primary Care Unavailable Bam, Osvaldo Attending Unavailable Bam, Osvaldo Consulting Unavailable Bam, Osvaldo Referring Unavailable Oleghe, Efewongbe Primary Care Unavailable Friend, Miguel Consulting Unavailable Oleghe, Efewongbe Referring Unavailable Friend, Miguel Attending Unavailable Arjun Felton Attending Unavailable Oleghe, Efewongbe Primary Care Unavailable Oleghe, Efewongbe Referring Unavailable Reynaldo Martin Attending Unavailable Oleghe, Efewongbe Primary Care Unavailable Oleghe, Efewongbe Primary Care Unavailable Oleghe, Efewongbe Attending Unavailable Oleghe, Efewongbe Primary Care Unavailable Tickarabella TELEPHONE SERVICES SALES REPRESENTATIVEeRgine Attending Unavailable Oleghe, Efewongbe Primary Care Unavailable Tickarabella TELEPHONE SERVICES SALES REPRESENTATIVERegine Attending Unavailable Oleghe, Efewongbe Primary Care Unavailable Tickton Regine MÉNDEZ Attending Unavailable Elvi Perez Attending Unavailable Oleghe, Efewongbe Primary Care Unavailable Oleghe, Efewongbe Referring Unavailable Tickton TELEPHONE SERVICES SALES REPRESENTATIVERegine Attending Unavailable Oleghe, Efewongbe Primary Care Unavailable Oleghe OLS, Efewongbe Referring Unavailabl e Oleghe, Efewongbe Primary Care Unavailable Oleghe OLS, Efewongbe Attending Unavailabl e Oleghe, Efewongbe Primary Care Unavailable Oleghe OLS, Efewongbe Attending Unavailabl e Tickton OLS, Regine Attending Unavailable Oleghe, Efewongbe Primary Care Unavailable Oleghe, Efewongbe Primary Care Unavailable Oleghe OLS, Efewongbe Attending Unavailabl e Friend, Miguel Attending Unavailable Oleghe, Efewongbe Referring Unavailable Oleghe, Efewongbe Primary Care Unavailable Tickton OLS Regine Attending Unavailable Oleghe, Efewongbe Primary Care Unavailable Oleghe OLS, Efewongbe Attending Unavailabl e Oleghe OLS, Efewongbe Referring Unavailabl e Oleghe, Efewongbe Primary Care Unavailable Oleghe, Efewongbe Primary Care Unavailable Oleghe, Efewongbe Attending Unavailable Oleghe, Efewongbe Referring Unavailable Oleghe, Efewongbe Primary Care Unavailable Tickton OLS, Regine Attending Unavailable Tickton OLS, Regine Referring Unavailable Oleghe OLS, Efewongbe Attending Unavailabl e Oleghe, Efewongbe Primary Care Unavailable Oleghe OLS, Efewongbe Attending Unavailabl e Oleghe, Efewongbe Primary Care Unavailable Oleghe, Efewongbe Primary Care Unavailable Oleghe OLS, Efewongbe Attending Unavailabl e Allergies Allergy Classification Reported Allergen(s) Allergy Type [...] [OXYCODONE-ACETAM INOPHEN] Drug Allergy 01-17-20 16 Intolerance [facility] (20 sources) Clindamycin; Translations: [CLINDAMYCIN] Drug Allergy 01-17-20 12 Rash, Itching [facility] (10 sources) HMG-CoA reductase inhibitor; Translations: [BKDMYMU-XQC-LYX REDUCTASE INHIBITORS] Drug Intolerance 01-23-20 12 Other: See Comments [facility] (20 sources) Morphine; Translations: [MORPHINE] Drug Allergy 06-11-20 GI Upset, Vomiting [facility] Work Phone: (10 sources) Penicillins; Translations: [PENICILLINS] Drug Allergy 02-22-20 04 Rash [facility] (10 sources) Sulfonamides (Antibiotic); Translations: [SULFA (SULFONAMIDE ANTIBIOTICS)] Drug Intolerance 02-22-20 Other: See Comments [facility] (13 sources) oxyCODONE Drug Allergy 07-21-20 Intolerance [facility] (13 sources) Penicillins Allergy to substance 07-21-20 Rash [facility] (13 sources) Sulfonamides (Antibiotic) Propensity to adverse reactions 07-21-20 thrush [facility] (13 sources) Aiwqdak-Qwm-Wwm Reductase Inhibitor Allergy to substance 07-21-20 See Note [facility] Comment on above: Lethargy, muscle/afua nt pain (1 source) Clindamycin Drug Allergy 07-14-20 [facility] Repository (1 source) Morphine Drug Allergy 07-14-20 25 [facility] Repository (1 source) oxyCODONE Drug Allergy 07-14-20 25 [facility] Repository (1 source) Penicillins Drug allergy (disorder) 07-14-20 [facility] Repository (1 source) Sulfonamides (Antibiotic) Drug allergy (disorder) 07-14-20 25 [facility] Repository (1 source) Rpzpyvv-Qai-Mgu Reductase Inhibitor Drug allergy (disorder) 07-14-20 [facility] Repository Medications Current Medications Medication Drug Class(es) Dates Sig (Normalized) Sig (Original) acetaminophen 500 mg oral capsule (20 sources) Start: 07-15-2024 take 1 capsule by mouth three times daily Start: 05-15-2021 take 2 tablets by [facility] every eight hours as needed acetaminophen (TYLENOL) 325 mg tablet Take 2 tablets by mouth every 8 hours as needed for pain. 30 tablet 05/15/2021 Active Comment on above: Take 2 tablets by [facility] every 8 hours as needed [...] daily Start: 09-21-2016 take 1 capsule by [facility] once daily as needed Stool Softener 100 MG Oral Capsule TAKE 1 CAPSULE Daily prn Refills: 0 Start : 21-Sep-2016 Active Comment on above: Take 1 capsule by [facility] twice daily. docusate sodium 50 mg / sennosides, halfway 8.6 mg oral capsule (13 sources) Start: 07-15-2024 fenofibrate 67 mg oral capsu le (17 sources) Peroxisome Proliferator Receptor alpha Agonist Start: 07-15-2024 take 1 capsule by [facility] once daily at bedtime Fenofibrate 150 mg cap Take 150 mg by [facility] daily at bedtime. Active furosemide 40 [...] 1 tablet by [facility] once daily in the evening Start: 01-01-2013 End: 04-24-2024 take 1 tablet by mouth twice daily potassium chloride (KLOR-CON 10) 10 mEq tablet Indications: Essential hypertension Take 1 tablet by mouth twice daily. 180 tablet 2 07/22/2020 04/24/2024 Discontinued take 2 tablets by mo [facility] once daily potassium chloride ER (KLOR-CON) 20 mEq tablet Take 40 mEq by mouth once daily. Active Comment on above: Take 1 tablet by [facility] twice daily. prednisoLONE acetate 10 mg/ml ophthalmic [...] ilsa [facility] once daily. Vit A,C And F-Tndslp-Pgzcxtef (I-Lary) 300 mcg-200 mg-27 mg-2 mg tablet (11 sources) Start: 07-15-2024 Vit A,C And Z-Oiwchl-Kgahkzyd (I-Lary) 300 mcg-200 mg-27 mg-2 mg tablet Active 1 {tbl} PO daily July 15, 2024 1:00am administer after a meal vit C,R-Zv-qpmut-lutein-ze axan (PRESERVISION AREDS-2) 250-90-40-1 mg (7 sources) vit C,V-Wu-fgeuv-lutein-zeaxa n (PRESERVISION AREDS-2) 250-90-40-1 mg Take by mouth. Active vit C,E-Zn-coppr -lutein-zeaxan (PRESERVISION AREDS-2) 250-90-40-1 mg Take by mouth. 0 Active Comment on above: Take by mouth. Completed/Discontinued Medications Medication Drug Class(es) Dates Sig (Normalized) Sig (Original) aspirin 500 mg / caffeine 32.5 mg oral tablet (8 sources) Platelet Aggregation Inhibitor, Nonsteroidal Anti-inflammatory Drug, Central Nervous System Stimulant, Methylxanthine End: 04-24-20 24 aspirin-caffeine (BACK AND BODY PAIN RELIEVER) 500-32.5 [...] on above: Take 1 capsule by mo [facility] at bedtime as needed for up to 30 days. hydroCHLOROthiazide 25 mg / lisinopril 20 mg oral tablet (2 sources) Thiazide Diuretic, Angiotensin Converting Enzyme Inhibitor Start: 03-07-20 End: 05-17-20 take 1 tablet by mouth once daily [...] 1 application to affected area twice daily. Anthony-3 Fatty Acids-Vitamin E (FISH OIL) 1,000 mg cap (8 sources) End: 4 take 1 capsule by mouth once daily Anthony-3 Fatty Acids-Vitamin E (FISH OIL) 1,000 mg cap Take 1 capsule by mouth once daily. 0 04/24/2024 Discontinued (Discontinued by Patient) take 1 capsule by mouth once sylvain ly Anthony-3 Fatty Acids-Vitamin E (FISH OIL) 1,000 mg cap Take 1 capsule by mouth once daily. 0 Active Comment on above: Take 1 capsule by mo [facility] once daily. PreserVision AREDS 2 Oral Capsule [...] Comment on above: Take 1 tablet by [facility] twice daily. Problems Active Problems Problem [...] Coronary arteriosclerosis; Translations: [Atherosclerotic heart disease of [place] coronary artery without angina pectoris] Onset: 2 [...] 5 Resolved: 1 11-25-2014 Chronic Nutritional deficiencies (1 source) Vitamin D deficiency; Translations: [Unspecified vitamin D deficiency] Chronic Osteoarthritis (20 sources) Primary osteoarthritis, right [...] due to excess calories] 07-15-2024 Chronic Other upper respiratory disease (1 source) [...] Onset: 01-16-2005 Resolved: 02-17-2021 02-17-2021 Episodic Other gastrointestinal disorders (1 source) Diarrhea, unspecified; Translations: [Diarrhea, unspecified] Onset: 03-02-2025 Episodic Other gastrointestinal disorders (2 sources) Dysphagia, oropharyngeal phase; Translations: [Dysphagia, oropharyngeal phase] Onset: 11-18-2024 Episodic Other injuries and conditions due to external causes (2 sources) History of falling; Translations: [History of falling] Onset: 11-18-2024 Episodic Other lower respiratory disease (1 source) Other forms of dyspnea; Translations: [Other forms of dyspnea] Onset: 08-29-2024 Episodic Other nervous system disorders (9 sources) [...] Translations: [Asymptomatic menopausal state] Onset: 08-29-2024 Episodic Skin and subcutaneous tissue infections (3 sources) Cellulitis of right upper limb; Translations: [Cellulitis of right lower limb] Onset: 10-10-2024 Episodic Unclassified (13 sources) Colonoscopy planned Resolved: 09-10-2011 07-15-2024 NEGATED: Highlighted row has not occurred!Residual codes; unclassified (1 source) Disease Episodic Results Test Name Value Interpretation Reference Range Facility EGD Reporton 07-15-2025 EGD Report [facility] Medical Records Department [address] [place] [address] EGD Report MR#: [id number] Acct: [id number] Name: YAA WARD Rep #: [id number] : 1940 85 From: Miguel Wooten DO PCP: Dr. Rodrigue Saldaña MD Status:REG [facility] Patient Name: Yaa Ward Procedure Date: 07/15/2025 [...] pathology results. Procedure Code(s): --- Professional --- 70294, Esophagogastroduodenosc opy, flexible, transoral; with biopsy, single or multiple CPT copyright 2021 [employer]. All rights reserved. The codes documented in this report are preliminary and upon chief of staff review may be revised to meet current compliance requirements. Miguel Wooten DO 07/15/2025 12:40:45 PM This report has been signed electronically. Number of Addenda: 0 Note Initiated On: 07/15/2025 12:13 PM 07/15/25 1241 Date Miguel Kam Signature: Date (if indicated) CC: Dr. Rodrigue Saldaña MD; Miguel Wooten DO Date Dictated: 07/15/25 1213 Date Transcribed: Analytics Intern: RF Signed Normal [facility] MR/OP.PROVATon 07-15-2025 MR/OP.[facility] Medical Records Department [address] [place] [address] Provation Physician Letter MR#: [id number] Acct: [id number] Name: YAA WARD Rep #: [id number] : 1940 85 From: Miguel Wooten DO PCP: Dr. Rodrigue Saldaña MD Status:REG [facility] 07/15/2025 Rodrigue Saldaña MD [address] [place] [address] [place] [address] Re : Upper GI endoscopy procedure for Yaa Ward Dear Dr. Saldaña This procedure was performed on Sunday, July 15, 2025. My impressions and recommendations [...] been signed electronically. 07/15/25 1241 Date Miguel Kam Signature: Date (if indicated) CC: Dr. Rodrigue Saldaña MD; Miguel Wooten DO Date Dictated: 07/15/25 1213 Date Transcribed: Analytics Intern: RF Signed [facility] MR/POSTOP.ANEon 07-15-2025 MR/POSTOP.[facility] Medical Records Department [address] [place] [address] Anesthesia Postop Eval I 07/15/25 1246 MR#: [id number] Acct: [id number] Name: YAA WARD Rep #: [id number] : 1940 85 From: Cassidy Card CRNA PCP: Dr. Rodrigue Saldaña MD Status:REG SDC Y Race: C Location: [place] [address] Anesthesia: Postop Eval I Current Vital Signs [...] 1 completed: Yes 07/15/25 1247 Date Cassidy Crad LITHOGRAPHIC PROOFER APPRENTICE Cosigner Signature: Date CC: Signed [facility] MR/[id number] 07-15-2025 MR/POSTOPAN2 [facility] Medical Records Department [address] [place] [address] Anesthesia Postop Eval II 07/15/25 1423 MR#: [id number] Acct: [id number] Name: YAA WARD Rep #: [id number] : 1940 85 From: Ezekiel Marcus MD PCP: Dr. Rodrigue Saldaña MD Status:DEP [facility] Y Race: C Location: [place] Anesthesia Postop Eval I Sum Postop Eval Completion status Anesthesia document: Postop Eval 1 completed: Yes Anesthesia Postop Eval I Summary Anesthesia Postop Eval I Summary: Anesthesia Postop Eval I: Assessment Summary Airway patent Yes 07/15/25 12:47 LITHOGRAPHIC PROOFER APPRENTICE.GDOTT Spontaneous unlabored Yes 07/15/25 12:47 LITHOGRAPHIC PROOFER APPRENTICE.GDOTT respirations Mental status Awake,Calm 07/15/25 12:47 LITHOGRAPHIC PROOFER APPRENTICE.GDOTT nausea No 07/15/25 12:47 LITHOGRAPHIC PROOFER APPRENTICE.GDOTT Vomiting No 07/15/25 12:47 LITHOGRAPHIC PROOFER APPRENTICE.GDOTT Anesthesia Postop Eval I: Fluid Summary Crystalloid volume administer 200 07/15/25 12:47 LITHOGRAPHIC PROOFER APPRENTICE.GDOTT (ml) Colloids volume administered ( ml) Blood Product volume administered (ml) Total IV fluid infused 200 07/15/25 12:47 LITHOGRAPHIC PROOFER APPRENTICE.GDOTT Anesthesia Postop Eval I: Summary Notes Anesthesia Complication No 07/15/25 12:47 LITHOGRAPHIC PROOFER APPRENTICE.GDOTT Anesthesia Complication Comment: Post-operative progress note Anesthesia: Postop Eval II Evaluation Mental status: Awake Pain Level: 0 nausea: No Vomiting: No Complications Anesthesia Complication: No 07/15/25 1424 Date Ezekiel Marcus MD Cosigner Signature: Date CC: Signed [facility] MR/PATAYANon 07-14-2025 MR/PAT.[facility] Medical Records Department [address] [place] [address] PAT - Anesthesia 07/14/25 1533 MR#: [id number] Acct: [id number] Name: YAA WARD Rep #: [id number] : 1940 85 From: Amilcar Red MD PCP: Dr. 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 Female Yes 07/14/25 14:55 HX of Motion [...] 06/09/25 12:48 Respiratory Assessment Respiratory Assessment - straw hat machine operator: Respiratory Tract Infection Hx - straw hat machine operator Hx Respiratory Tract Infection No 07/14/25 14:55 STOP Sleep Apnea STOP Sleep Apnea - straw hat machine operator: STOP Sleep Apnea - straw hat machine operator Hx Hypertension Yes 07/14/25 14:55 Hx Sleep [...] Tobacco Use History Tobacco Use History - straw hat machine operator: Tobacco Use History - straw hat machine operator Tobacco Use Smoking Status Never smoker 07/14/25 14:55 Hx Tobacco Use No 07/14/25 14:55 Years Smoking Packs Smoked per Day Smoking Cessation Date was within the last 15 years Hx Smoking Cessation Date Hx Smoking Cessation Counseling Hematologic Medial History Hematologic Hx - 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 Normal [facility] Absolute lymphocyte countOrd ered By: Rodrigue Saldaña on 05-25-2025 Lymphocytes Auto (Unsp spec) [#/Vol] 1.75 10*3/uL 0.83-4.51 [facility] Absolute neutrophil countOrd ered By: Teasalmaryann Yadavjaspreetaaron on 05-25-2025 Neutrophils (Bld) [#/Vol] 4.6 10*3/uL 2.0-7.7 [facility] Anion gap in Serum or Plasma Ordered By: Rodrigue Saldaña on 05-25-2025 Anion gap [Moles/Vol] 14 mmol/L 5-15 [facility] Automated lymphocyte count a s percentage of total leukocytesOrdered By: Rodrigue Saldaña on 05-25-2025 Lymphocytes/100 WBC Auto (Unsp spec) 23.3 % 19-41 [facility] BUN/creatinine ratioOrdered By: Rodrigue Saldaña on 05-25-2025 Urea nitrogen/Creatinine [Mass ratio] 29.0 mg/mg High 10-20 [facility] Basophil percentageOrdered B y: Rodrigue Yadavjaspreetaaron on 05-25-2025 Basophils/100 WBC (Bld) 0.7 % 0-1 [facility] Carbon dioxide, total [Moles /volume] in Central venous bloodOrdered By: Rodrigue Yadavjaspreetaaron on 05-25-2025 CO2 [Moles/Vol] 21.8 mmol/L 21.0-32.0 [facility] Chloride assayOrdered By: Dwayne Saldaña on 05-25-2025 Chloride [Moles/Vol] 105 mmol/L 98-108 [facility] Eosinophil percentageOrdered By: Rodrigue Yadavjaspreetaaron on 05-25-2025 Eosinophils/100 WBC (Bld) 6.0 % High 0-5 [facility] Erythrocyte distribution wid th ratioOrdered By: Arenmaryann Leifjaspreetaraon on 05-25-2025 Erythrocyte distribution width (RBC) [Ratio] 16.1 % High 11.6-14.6 [facility] Erythrocyte distribution wid th standard deviationOrdered By: Rodrigue Yadavjaspreetaaron on 05-25-2025 Erythrocyte distribution width (RBC) [Ratio] 52.0 fl High 35.1-43.9 [facility] Glomerular filtration rate ( GFR) estimation/1.73 sq m using serum, plasma, or whole bOrdered By: Rodrigue Saldaña on 05-25-2025 GFR/1.73 sq M.predicted among non-blacks MDRD (S/P/Bld) [Vol rate/Area] 39 mL/min/{1.73_m2} Low >60 [facility] Comment on above: mL/min/1.73m2 CKD-EP I Creatinine Equation (2020) Hematocrit Auto (Bld) [Volum e fraction]Ordered By: Rodrigue Saldaña on 05-25-2025 Hematocrit (Bld) [Volume fraction] 35.2 % Low 37-47 [facility] Hemoglobin measurementOrdere d By: Rodrigue Saldaña on 05-25-2025 Hemoglobin (Bld) [Mass/Vol] 11.6 g/dL Low 12.0-15.0 [facility] Immature granulocytes/100 WB C Auto (Bld)Ordered By: Rodrigue Saldaña on 05-25-2025 Immature granulocytes/100 WBC (Bld) 0.500 % 0.0-0.9 [facility] Comment on above: IG% - Immature Granu locytes (promyelocytes, myelocytes and metamyelocytes) > 1% indicates that a LEFT SHIFT is Present. MCV (mean corpuscular volume ) determinationOrdered By: Rodrigue Saldaña on 05-25-2025 MCV (RBC) [Entitic vol] 88.9 fL 81-99 [facility] Mean corpuscular hemoglobin (MCH) determinationOrdered By: Rodrigue Saldaña on 05-25-2025 MCH (RBC) [Entitic mass] 29.3 pg 27.0-32.0 [facility] Mean corpuscular hemoglobin concentration (MCHC) determinationOrdered By: Rodrigue Saldaña on 05-25-2025 MCHC (RBC) [Mass/Vol] 33.0 g/dL 32-36 [facility] Mean platelet volume determi nationOrdered By: Rodrigue Saldaña on 05-25-2025 Platelet mean volume (Bld) [Entitic vol] 9.3 fL 6.2-12.0 [facility] Monocyte percentageOrdered B y: Rodrigue Saldaña on 05-25-2025 Monocytes/100 WBC (Bld) 7.8 % 0-10 [facility] Neutrophil percentageOrdered By: Rodrigue Leifkalina on 05-25-2025 Neutrophils/100 WBC (Bld) 61.7 % 47-70 [facility] Nucleated red blood cell per centageOrdered By: Rodrigue Saldaña on 05-25-2025 Nucleated RBC/100 WBC (Bld) [Ratio] 0 % 0-5 [facility] Platelet countOrdered By: Dwayne naveed Leifkalina on 05-25-2025 Platelets (Bld) [#/Vol] 182 10*3/uL 150-450 [facility] Potassium measurement (mass/ volume)Ordered By: Dwaynejessicajarred Leifkalina on 05-25-2025 Potassium (Unsp spec) [Mass/Vol] 4.0 mmol/L 3.3-5.1 [facility] RBC Auto (Bld) [#/Vol]Ordere d By: Rodrigue Leifkalina on 05-25-2025 RBC (Bld) [#/Vol] 3.96 10*6/uL Low 4.2-5.4 [facility] Serum creatinine measurement (mass/volume)Ordered By: Rodrigue Leifkalina on 05-25-2025 Creatinine [Mass/Vol] 1.33 mg/dL High 0.70-1.20 [facility] Serum glucose measurement (m ass/volume)Ordered By: Dwaynejessicajarred Leifjaspreetaaron on 05-25-2025 Glucose [Mass/Vol] 104 mg/dL High 70-99 [facility] Serum or plasma calcium murali urement (mass/volume)Ordered By: Rodrigue Leifkalina on 05-25-2025 Calcium [Mass/Vol] 9.1 mg/dL 7.6-11.0 [facility] Serum or plasma urea nitroge n measurement (mass/volume)Ordered By: Rodrigue Leifkalina on 05-25-2025 Urea nitrogen [Mass/Vol] 39 mg/dL High 4-19 [facility] Sodium levelOrdered By: Dwaynejessica jarred Leifjaspreetaaron on 05-25-2025 Sodium [Moles/Vol] 141 mmol/L 133-145 [facility] White blood cell (WBC) count Ordered By: Rodrigue Yadavjaspreetaaron on 05-25-2025 WBC (Bld) [#/Vol] 7.5 10*3/uL 4.4-11.0 [facility] Absolute lymphocyte countOrd ered By: Dwaynejessicajarred Royaaron on 04-27-2025 Lymphocytes Auto (Unsp spec) [#/Vol] 1.87 10*3/uL 0.83-4.51 [facility] Absolute neutrophil countOrd ered By: Rodrigue Royaaron on 04-27-2025 Neutrophils (Bld) [#/Vol] 4.4 10*3/uL 2.0-7.7 [facility] Anion gap in Serum or Plasma Ordered By: Rodrigue Yadavjaspreetaaron on 04-27-2025 Anion gap [Moles/Vol] 14 mmol/L 5-15 [facility] Automated lymphocyte count a s percentage of total leukocytesOrdered By: Rodrigue Saldaña on 04-27-2025 Lymphocytes/100 WBC Auto (Unsp spec) 24.9 % 19-41 [facility] BUN/creatinine ratioOrdered By: Rodrigue Yadavjaspreetaaron on 04-27-2025 Urea nitrogen/Creatinine [Mass ratio] 23.6 mg/mg High 10-20 [facility] Basophil percentageOrdered B y: Arenmaryann Yadavjaspreetaaron on 04-27-2025 Basophils/100 WBC (Bld) 0.8 % 0-1 [facility] Carbon dioxide, total [Moles /volume] in Central venous bloodOrdered By: Rodrigue Yadavjaspreetaaron on 04-27-2025 CO2 [Moles/Vol] 23.6 mmol/L 21.0-32.0 [facility] Chloride assayOrdered By: Dwayne jessicajarred Yadavjaspreetaaron on 04-27-2025 Chloride [Moles/Vol] 103 mmol/L 98-108 [facility] Eosinophil percentageOrdered By: Dwaynejessicasalmaryann Yadavjaspreete on 04-27-2025 Eosinophils/100 WBC (Bld) 7.2 % High 0-5 [facility] Erythrocyte distribution wid th ratioOrdered By: Rodrigue Yadavjaspreetaaron on 04-27-2025 Erythrocyte distribution width (RBC) [Ratio] 16.1 % High 11.6-14.6 [facility] Erythrocyte distribution wid th standard deviationOrdered By: Rodrigue Saldaña on 04-27-2025 Erythrocyte distribution width (RBC) [Ratio] 52.7 fl High 35.1-43.9 [facility] Glomerular filtration rate ( GFR) estimation/1.73 sq m using serum, plasma, or whole bOrdered By: Rodrigue Saldaña on 04-27-2025 GFR/1.73 sq M.predicted among non-blacks MDRD (S/P/Bld) [Vol rate/Area] 34 mL/min/{1.73_m2} Low >60 [facility] Comment on above: mL/min/1.73m2 CKD-EP I Creatinine Equation (2020) Hematocrit Auto (Bld) [Volum e fraction]Ordered By: Rodrigue Saldaña on 04-27-2025 Hematocrit (Bld) [Volume fraction] 34.7 % Low 37-47 [facility] Hemoglobin measurementOrdere d By: Rodrigue Saldaña on 04-27-2025 Hemoglobin (Bld) [Mass/Vol] 11.3 g/dL Low 12.0-15.0 [facility] Immature granulocytes/100 WB C Auto (Bld)Ordered By: Rodrigue Saldaña 04-27-2025 Immature granulocytes/100 WBC (Bld) 0.300 % 0.0-0.9 [facility] Comment on above: IG% - Immature Granu locytes (promyelocytes, myelocytes and metamyelocytes) > 1% indicates that a LEFT SHIFT is Present. MCV (mean corpuscular volume ) determinationOrdered By: Rodrigue Saldaña 04-27-2025 MCV (RBC) [Entitic vol] 89.9 fL 81-99 [facility] Mean corpuscular hemoglobin (MCH) determinationOrdered By: jessicasagamore beachmaryann Saldaña 04-27-2025 MCH (RBC) [Entitic mass] 29.3 pg 27.0-32.0 [facility] Mean corpuscular hemoglobin concentration (MCHC) determinationOrdered By: naveed Saldaña 04-27-2025 MCHC (RBC) [Mass/Vol] 32.6 g/dL 32-36 [facility] Mean platelet volume determi nationOrdered By: Rodrigue Saldaña on 04-27-2025 Platelet mean volume (Bld) [Entitic vol] 9.6 fL 6.2-12.0 [facility] Monocyte percentageOrdered B y: Rodrigue Leifkalina on 04-27-2025 Monocytes/100 WBC (Bld) 8.6 % 0-10 [facility] Neutrophil percentageOrdered By: Rodrigue Leifjaspreetaaron on 04-27-2025 Neutrophils/100 WBC (Bld) 58.2 % 47-70 [facility] Nucleated red blood cell per centageOrdered By: Rodrigue Leifkalina on 04-27-2025 Nucleated RBC/100 WBC (Bld) [Ratio] 0 % 0-5 [facility] Platelet countOrdered By: Dwayne naveed Leifjaspreetaaron on 04-27-2025 Platelets (Bld) [#/Vol] 166 10*3/uL 150-450 [facility] Potassium measurement (mass/ volume)Ordered By: Dwaynejessicasalmaryann Yadavjaspreetaaron on 04-27-2025 Potassium (Unsp spec) [Mass/Vol] 3.9 mmol/L 3.3-5.1 [facility] RBC Auto (Bld) [#/Vol]Ordere d By: Rodrigue Leifkalina on 04-27-2025 RBC (Bld) [#/Vol] 3.86 10*6/uL Low 4.2-5.4 [facility] Serum creatinine measurement (mass/volume)Ordered By: Rodrigue Saldaña on 04-27-2025 Creatinine [Mass/Vol] 1.52 mg/dL High 0.70-1.20 [facility] Serum glucose measurement (m ass/volume)Ordered By: Dwaynejessicasalmaryann Yadavjaspreetaaron on 04-27-2025 Glucose [Mass/Vol] 93 mg/dL 70-99 [facility] Serum or plasma calcium murali urement (mass/volume)Ordered By: Rodrigue Yadavjaspreetaaron on 04-27-2025 Calcium [Mass/Vol] 8.7 mg/dL 7.6-11.0 [facility] Serum or plasma urea nitroge n measurement (mass/volume)Ordered By: Rodrigue Saldaña on 04-27-2025 Urea nitrogen [Mass/Vol] 36 mg/dL High 4-19 [facility] Sodium levelOrdered By: Tea jarred Piper on 04-27-2025 Sodium [Moles/Vol] 141 mmol/L 133-145 [facility] White blood cell (WBC) count Ordered By: Rodrigue Saldaña on 04-27-2025 WBC (Bld) [#/Vol] 7.5 10*3/uL 4.4-11.0 [facility] Calculated very low density lipoprotein (VLDL) cholesterol measurementOrdered By: Rodrigue Saldaña on 04-20-2025 Calculated very low density lipoprotein (VLDL) cholesterol measurement 23 mg/dL 5-40 [facility] LDL calc ser/plasOrdered By: Rodrigue Saldaña on 04-20-2025 Cholesterol in LDL [Mass/Vol] 82 mg/dL [facility] Comment on above: Dlnneyfgvy=581-383 m g/dL & Higher Zsjz=548 mg/dL or greaterFriedwald Equation for LDL-C Screening total cholesterol/ high density lipoprotein (HDL) cholesterol ratioOrdered By: Rodrigue Saldaña on 04-20-2025 Cholesterol.total/Marixa sterol in HDL [Mass ratio] 3.25 {ratio} [facility] Serum or plasma cholesterol in HDL measurement (mass/volume)Ordered By: Rodrigue Saldaña on 04-20-2025 Cholesterol in HDL [Mass/Vol] 47 mg/dL >40 [facility] Comment on above: National Cholesterol Education Program (NCEP) guidelines:<40 mg/dL: Low HDL-cholesterol (major risk factor for CHD)>= 60 mg/dL: High HDL-cholesterol (negative risk factor for CHD)HDL-cholesterol is affected by a number of factors, e.g. smoking, exercise, hormones, sex and age. Serum or plasma cholesterol measurement (mass/volume)Ordered By: Rodrigue Saldaña on 04-20-2025 Cholesterol [Mass/Vol] 152 mg/dL <201 [facility] Comment on above: Cholesterol level, D esirable <200 mg/dLBorderline high cholesterol 200-239 mg/dLHigh cholesterol >=240 mg/dLRecommendations of the NCEP Adult Treatment Panel for the following risk-cutoff thresholds for the [place] population. Triglycerides measurementOrd ered By: Rodrigue Saldaña on 04-20-2025 Triglyceride [Mass/Vol] 114 mg/dL <199 [facility] Comment on above: The drugs N-Acetylcy steine and Metamizole may falsely depress this assay. Normal range: <150 mg/dLBorderline High: 150-199 mg/dLHigh: 200-499 mg/dLVery High: >500 mg/dL Vitamin B12 ser/plasOrdered By: Rodrigue Saldaña on 04-20-2025 Cobalamin (Vitamin B12) [Mass/Vol] 389 pg/mL 180-914 [facility] Absolute lymphocyte countOrd ered By: Rodrigue Saldaña on 03-30-2025 Lymphocytes Auto (Unsp spec) [#/Vol] 1.66 10*3/uL 0.83-4.51 [facility] Absolute neutrophil countOrd ered By: Rodrigue Saldaña on 03-30-2025 Neutrophils (Bld) [#/Vol] 3.7 10*3/uL 2.0-7.7 [facility] Anion gap in Serum or Plasma Ordered By: Rodrigue Saldaña on 03-30-2025 Anion gap [Moles/Vol] 15 mmol/L 5-15 [facility] Automated lymphocyte count a s percentage of total leukocytesOrdered By: Rodrigue Saldaña on 03-30-2025 Lymphocytes/100 WBC Auto (Unsp spec) 25.1 % 19-41 [facility] BUN/creatinine ratioOrdered By: Rodrigue Saldaña on 03-30-2025 Urea nitrogen/Creatinine [Mass ratio] 26.5 mg/mg High 10-20 [facility] Basophil percentageOrdered B y: Rodrigue Saldaña on 03-30-2025 Basophils/100 WBC (Bld) 0.6 % 0-1 [facility] Carbon dioxide, total [Moles /volume] in Central venous bloodOrdered By: Rodrigue Saldaña on 03-30-2025 CO2 [Moles/Vol] 21.5 mmol/L 21.0-32.0 [facility] Chloride assayOrdered By: Dwayne Saldaña on 03-30-2025 Chloride [Moles/Vol] 103 mmol/L 98-108 [facility] Eosinophil percentageOrdered By: Rodrigue Saldaña on 03-30-2025 Eosinophils/100 WBC (Bld) 9.2 % High 0-5 [facility] Erythrocyte distribution wid th ratioOrdered By: Rodrigue Saldaña on 03-30-2025 Erythrocyte distribution width (RBC) [Ratio] 15.9 % High 11.6-14.6 [facility] Erythrocyte distribution wid th standard deviationOrdered By: Rodrigue Saldaña on 03-30-2025 Erythrocyte distribution width (RBC) [Ratio] 52.4 fl High 35.1-43.9 [facility] Glomerular filtration rate ( GFR) estimation/1.73 sq m using serum, plasma, or whole bOrdered By: Rodrigue Saldaña on 03-30-2025 GFR/1.73 sq M.predicted among non-blacks MDRD (S/P/Bld) [Vol rate/Area] 32 mL/min/{1.73_m2} Low >60 [facility] Comment on above: mL/min/1.73m2 CKD-EP I Creatinine Equation (2020) Hematocrit Auto (Bld) [Volum e fraction]Ordered By: Rodrigue Saldaña on 03-30-2025 Hematocrit (Bld) [Volume fraction] 34.4 % Low 37-47 [facility] Hemoglobin measurementOrdere d By: Rodrigue Saldaña on 03-30-2025 Hemoglobin (Bld) [Mass/Vol] 11.4 g/dL Low 12.0-15.0 [facility] Immature granulocytes/100 WB C Auto (Bld)Ordered By: Rodrigue Saldaña 03-30-2025 Immature granulocytes/100 WBC (Bld) 0.500 % 0.0-0.9 [facility] Comment on above: IG% - Immature Granu locytes (promyelocytes, myelocytes and metamyelocytes) > 1% indicates that a LEFT SHIFT is Present. MCV (mean corpuscular volume ) determinationOrdered By: Rodrigue Saldaña 5 MCV (RBC) [Entitic vol] 89.4 fL 81-99 [facility] Mean corpuscular hemoglobin (MCH) determinationOrdered By: Rodrigue Leifjaspreetaaron on 03-30-2025 MCH (RBC) [Entitic mass] 29.6 pg 27.0-32.0 [facility] Mean corpuscular hemoglobin concentration (MCHC) determinationOrdered By: Rodrigue Leifjaspreetaaron on 03-30-2025 MCHC (RBC) [Mass/Vol] 33.1 g/dL 32-36 [facility] Mean platelet volume determi nationOrdered By: Rodrigue Leifkalina on 03-30-2025 Platelet mean volume (Bld) [Entitic vol] 10.1 fL 6.2-12.0 [facility] Monocyte percentageOrdered B y: Rodrigue Leifjaspreetaaron on 03-30-2025 Monocytes/100 WBC (Bld) 8.2 % 0-10 [facility] Neutrophil percentageOrdered By: Rodrigue Leifjaspreetaaron on 03-30-2025 Neutrophils/100 WBC (Bld) 56.4 % 47-70 [facility] Nucleated red blood cell per centageOrdered By: Rodrigue Saldaña on 03-30-2025 Nucleated RBC/100 WBC (Bld) [Ratio] 0 % 0-5 [facility] Platelet countOrdered By: Dwayne lucio Leifkalina on 03-30-2025 Platelets (Bld) [#/Vol] 162 10*3/uL 150-450 [facility] Potassium measurement (mass/ volume)Ordered By: Dwaynejessicasalmaryann Yadavjaspreetaaron on 03-30-2025 Potassium (Unsp spec) [Mass/Vol] 4.0 mmol/L 3.3-5.1 [facility] RBC Auto (Bld) [#/Vol]Ordere d By: Rodrigue Leifjaspreetaaron on 03-30-2025 RBC (Bld) [#/Vol] 3.85 10*6/uL Low 4.2-5.4 [facility] Serum creatinine measurement (mass/volume)Ordered By: Dwaynejessicasalmaryann Saldaña on 03-30-2025 Creatinine [Mass/Vol] 1.59 mg/dL High 0.70-1.20 [facility] Serum glucose measurement (m ass/volume)Ordered By: Rodrigue Saldaña on 03-30-2025 Glucose [Mass/Vol] 96 mg/dL 70-99 [facility] Serum or plasma calcium murali urement (mass/volume)Ordered By: Rodrigue Saldaña on 03-30-2025 Calcium [Mass/Vol] 8.3 mg/dL 7.6-11.0 [facility] Serum or plasma urea nitroge n measurement (mass/volume)Ordered By: Rodrigue Saldaña on 03-30-2025 Urea nitrogen [Mass/Vol] 42 mg/dL High 4-19 [facility] Sodium levelOrdered By: Tea Saldaña on 03-30-2025 Sodium [Moles/Vol] 140 mmol/L 133-145 [facility] White blood cell (WBC) count Ordered By: Rodrigue Saldaña on 03-30-2025 WBC (Bld) [#/Vol] 6.6 10*3/uL 4.4-11.0 [facility] Bilirubin Test strip Ql (U)O rdered By: Rodrigue Saldaña on 03-09-2025 Bilirubin Ql (U) Negative Negative [facility] Ketones Test strip Ql (U)Ord ered By: Rodrigue Saldaña on 03-09-2025 Ketones Ql (U) Negative Negative [facility] Nitrite Test strip Ql (U)Ord ered By: Rodrigue Saldaña on 03-09-2025 Nitrite Ql (U) Positive High Negative [facility] Protein Test strip Ql (U)Ord ered By: Rodrigue Saldaña on 03-09-2025 Protein Ql (U) 15 mg/dl High Negative [facility] Urine clarityOrdered By: Mikel Saldaña on 03-09-2025 Clarity (U) Sl. Cloudy Clear [facility] Urine color determinationOrd ered By: Rodrigue Saldaña on 03-09-2025 Color (U) Yellow Yellow [facility] Urine cultureOrdered By: Mikel Saldaña on 06-30-2025 Bacteria identified Cx Nom (U) Proteus mirabilis Abnormal [facility] Urine glucose detectionOrder ed By: Rodrigue Saldaña on 03-09-2025 Glucose Ql (U) Normal mg/dl Normal [facility] Urine leukocyte esterase det ection by dipstickOrdered By: Rodrigue Saldaña on 03-09-2025 Leukocyte esterase Test strip Ql (U) 500 /ul High Negative [facility] Urine pHOrdered By: Juvenal Saldaña on 03-09-2025 pH (U) 7.0 [pH] 5.0 - 8.0 [facility] Urine specific gravity measu rementOrdered By: Rodrigue Saldaña on 03-09-2025 Specific gravity (U) [Rel density] 1.005 1.002-1.030 [facility] Urine urobilinogen measureme ntOrdered By: Rodrigue Saldaña on 03-09-2025 Urobilinogen Ql (U) Normal mg/dl Normal [facility] Absolute lymphocyte countOrd ered By: Rodrigue Saldaña on 03-02-2025 Lymphocytes Auto (Unsp spec) [#/Vol] 1.17 10*3/uL 0.83-4.51 [facility] Absolute neutrophil countOrd ered By: Rodrigue Saldaña on 03-02-2025 Neutrophils (Bld) [#/Vol] 5.9 10*3/uL 2.0-7.7 [facility] Anion gap in Serum or Plasma Ordered By: Rodrigue Saldaña on 03-02-2025 Anion gap [Moles/Vol] 16 mmol/L High 5-15 [facility] Automated lymphocyte count a s percentage of total leukocytesOrdered By: Rodrigue Saldaña on 03-02-2025 Lymphocytes/100 WBC Auto (Unsp spec) 14.2 % Low 19-41 [facility] BUN/creatinine ratioOrdered By: Rodrigue Saldaña on 03-02-2025 Urea nitrogen/Creatinine [Mass ratio] 36.4 mg/mg High 10-20 [facility] Basophil percentageOrdered B y: Rodrigue Saldaña on 03-02-2025 Basophils/100 WBC (Bld) 0.6 % 0-1 [facility] Carbon dioxide, total [Moles /volume] in Central venous bloodOrdered By: Rodrigue Saldaña on 03-02-2025 CO2 [Moles/Vol] 20.3 mmol/L Low 21.0-32.0 [facility] Chloride assayOrdered By: Dwayne Saldaña on 03-02-2025 Chloride [Moles/Vol] 104 mmol/L 98-108 [facility] Eosinophil percentageOrdered By: Rodrigue Saldaña on 03-02-2025 Eosinophils/100 WBC (Bld) 4.0 % 0-5 [facility] Erythrocyte distribution wid th ratioOrdered By: naveed Saldaña on 03-02-2025 Erythrocyte distribution width (RBC) [Ratio] 15.1 % High 11.6-14.6 [facility] Erythrocyte distribution wid th standard deviationOrdered By: jessicasagamore beachmaryann Saldaña on 03-02-2025 Erythrocyte distribution width (RBC) [Ratio] 49.1 fl High 35.1-43.9 [facility] Glomerular filtration rate ( GFR) estimation/1.73 sq m using serum, plasma, or whole bOrdered By: Rodrigue Saldaña on 03-02-2025 GFR/1.73 sq M.predicted among non-blacks MDRD (S/P/Bld) [Vol rate/Area] 33 mL/min/{1.73_m2} Low >60 [facility] Comment on above: mL/min/1.73m2 CKD-EP I Creatinine Equation (2020) Hematocrit Auto (Bld) [Volum e fraction]Ordered By: Rodrigue Saldaña on 03-02-2025 Hematocrit (Bld) [Volume fraction] 36.9 % Low 37-47 [facility] Hemoglobin measurementOrdere d By: Rodrigue Saldaña on 03-02-2025 Hemoglobin (Bld) [Mass/Vol] 12.3 g/dL 12.0-15.0 [facility] Immature granulocytes/100 WB C Auto (Bld)Ordered By: Rodrigue Saldaña on 03-02-2025 Immature granulocytes/100 WBC (Bld) 0.600 % 0.0-0.9 [facility] Comment on above: IG% - Immature Granu locytes (promyelocytes, myelocytes and metamyelocytes) > 1% indicates that a LEFT SHIFT is Present. MCV (mean corpuscular volume ) determinationOrdered By: Rodrigue Saldaña on 03-02-2025 MCV (RBC) [Entitic vol] 87.9 fL 81-99 [facility] Mean corpuscular hemoglobin (MCH) determinationOrdered By: Rodrigue Saldaña on 03-02-2025 MCH (RBC) [Entitic mass] 29.3 pg 27.0-32.0 [facility] Mean corpuscular hemoglobin concentration (MCHC) determinationOrdered By: Rodrigue Saldaña on 03-02-2025 MCHC (RBC) [Mass/Vol] 33.3 g/dL 32-36 [facility] Mean platelet volume determi nationOrdered By: Rodrigue Saldaña on 03-02-2025 Platelet mean volume (Bld) [Entitic vol] 10.4 fL 6.2-12.0 [facility] Monocyte percentageOrdered B y: Rodrigue Saldaña on 03-02-2025 Monocytes/100 WBC (Bld) 8.6 % 0-10 [facility] Neutrophil percentageOrdered By: Rodrigue Saldaña on 03-02-2025 Neutrophils/100 WBC (Bld) 72.0 % High 47-70 [facility] Nucleated red blood cell per centageOrdered By: Rodrigue Saldaña on 03-02-2025 Nucleated RBC/100 WBC (Bld) [Ratio] 0 % 0-5 [facility] Platelet countOrdered By: Dwayne Saldaña on 03-02-2025 Platelets (Bld) [#/Vol] 191 10*3/uL 150-450 [facility] Potassium measurement (mass/ volume)Ordered By: Rodrigue Saldaña on 03-02-2025 Potassium (Unsp spec) [Mass/Vol] 4.1 mmol/L 3.3-5.1 [facility] RBC Auto (Bld) [#/Vol]Ordere d By: Rodrigue Saldaña on 03-02-2025 RBC (Bld) [#/Vol] 4.20 10*6/uL 4.2-5.4 [facility] Serum creatinine measurement (mass/volume)Ordered By: Rodrigue Saldaña on 03-02-2025 Creatinine [Mass/Vol] 1.54 mg/dL High 0.70-1.20 [facility] Serum glucose measurement (m ass/volume)Ordered By: Rodrigue Saldaña on 03-02-2025 Glucose [Mass/Vol] 90 mg/dL 70-99 [facility] Serum or plasma calcium murali urement (mass/volume)Ordered By: Rodrigue Saldaña on 03-02-2025 Calcium [Mass/Vol] 9.1 mg/dL 7.6-11.0 [facility] Serum or plasma urea nitroge n measurement (mass/volume)Ordered By: Rodrigue Saldaña on 03-02-2025 Urea nitrogen [Mass/Vol] 56 mg/dL High 4-19 [facility] Sodium levelOrdered By: Tea Saldaña on 03-02-2025 Sodium [Moles/Vol] 141 mmol/L 133-145 [facility] White blood cell (WBC) count Ordered By: Rodrigue Saldaña on 03-02-2025 WBC (Bld) [#/Vol] 8.2 10*3/uL 4.4-11.0 [facility] Anion gap in Serum or Plasma Ordered By: Regine Morales on 02-25-2025 Anion gap [Moles/Vol] 14 mmol/L 5-15 [facility] BUN/creatinine ratioOrdered By: Regine Morales on 02-25-2025 Urea nitrogen/Creatinine [Mass ratio] 25.9 mg/mg High 10-20 [facility] Carbon dioxide, total [Moles /volume] in Central venous bloodOrdered By: Regine Morales on 02-25-2025 CO2 [Moles/Vol] 24.7 mmol/L 21.0-32.0 [facility] Chloride assayOrdered By: Brian Morales on 02-25-2025 Chloride [Moles/Vol] 101 mmol/L 98-108 [facility] Glomerular filtration rate ( GFR) estimation/1.73 sq m using serum, plasma, or whole bOrdered By: Regine Morales on 02-25-2025 GFR/1.73 sq M.predicted among non-blacks MDRD (S/P/Bld) [Vol rate/Area] 36 mL/min/{1.73_m2} Low >60 [facility] Comment on above: mL/min/1.73m2 CKD-EP I Creatinine Equation (2020) Potassium measurement (mass/ volume)Ordered By: Regine Morales on 02-25-2025 Potassium (Unsp spec) [Mass/Vol] 3.9 mmol/L 3.3-5.1 [facility] Serum creatinine measurement (mass/volume)Ordered By: Regine Morales on 02-25-2025 Creatinine [Mass/Vol] 1.44 mg/dL High 0.70-1.20 [facility] Serum glucose measurement (m ass/volume)Ordered By: Regine Morales on 02-25-2025 Glucose [Mass/Vol] 105 mg/dL High 70-99 [facility] Serum or plasma calcium murali urement (mass/volume)Ordered By: Regine Morales on 02-25-2025 Calcium [Mass/Vol] 8.7 mg/dL 7.6-11.0 [facility] Serum or plasma urea nitroge n measurement (mass/volume)Ordered By: Regine Morales on 02-25-2025 Urea nitrogen [Mass/Vol] 37 mg/dL High 4-19 [facility] Sodium levelOrdered By: Noa Morales on 02-25-2025 Sodium [Moles/Vol] 139 mmol/L 133-145 [facility] Anion gap in Serum or Plasma Ordered By: Rodrigue Saldaña on 02-11-2025 Anion gap [Moles/Vol] 13 mmol/L 5-15 [facility] BUN/creatinine ratioOrdered By: Rodrigue Saldaña on 02-11-2025 Urea nitrogen/Creatinine [Mass ratio] 33.5 mg/mg High 10-20 [facility] Carbon dioxide, total [Moles /volume] in Central venous bloodOrdered By: Rodrigue Saldaña on 02-11-2025 CO2 [Moles/Vol] 24.0 mmol/L 21.0-32.0 [facility] Chloride assayOrdered By: Dwayne Saldaña on 02-11-2025 Chloride [Moles/Vol] 103 mmol/L 98-108 [facility] Glomerular filtration rate ( GFR) estimation/1.73 sq m using serum, plasma, or whole bOrdered By: Rodrigue Saldaña on 02-11-2025 GFR/1.73 sq M.predicted among non-blacks MDRD (S/P/Bld) [Vol rate/Area] 32 mL/min/{1.73_m2} Low >60 [facility] Comment on above: mL/min/1.73m2 CKD-EP I Creatinine Equation (2020) Potassium measurement (mass/ volume)Ordered By: Rodrigue Saldaña on 02-11-2025 Potassium (Unsp spec) [Mass/Vol] 4.1 mmol/L 3.3-5.1 [facility] Serum creatinine measurement (mass/volume)Ordered By: Rodrigue Saldaña on 02-11-2025 Creatinine [Mass/Vol] 1.57 mg/dL High 0.70-1.20 [facility] Serum glucose measurement (m ass/volume)Ordered By: Rodrigue Saldaña on 02-11-2025 Glucose [Mass/Vol] 117 mg/dL High 70-99 [facility] Serum or plasma calcium murali urement (mass/volume)Ordered By: Rodrigue Saldaña on 02-11-2025 Calcium [Mass/Vol] 8.9 mg/dL 7.6-11.0 [facility] Serum or plasma urea nitroge n measurement (mass/volume)Ordered By: Rodrigue Saldaña on 02-11-2025 Urea nitrogen [Mass/Vol] 53 mg/dL High 4-19 [facility] Sodium levelOrdered By: Tea Saldaña on 02-11-2025 Sodium [Moles/Vol] 140 mmol/L 133-145 [facility] Absolute lymphocyte countOrd ered By: Rodrigue Saldaña on 02-03-2025 Lymphocytes Auto (Unsp spec) [#/Vol] 1.61 10*3/uL 0.83-4.51 [facility] Absolute neutrophil countOrd ered By: Rodrigue Saldaña on 02-03-2025 Neutrophils (Bld) [#/Vol] 4.2 10*3/uL 2.0-7.7 [facility] Anion gap in Serum or Plasma Ordered By: Rodrigue Saldaña on 02-03-2025 Anion gap [Moles/Vol] 14 mmol/L 5-15 [facility] Automated lymphocyte count a s percentage of total leukocytesOrdered By: Rodrigue Saldaña on 02-03-2025 Lymphocytes/100 WBC Auto (Unsp spec) 23.7 % 19-41 [facility] BUN/creatinine ratioOrdered By: naveed Saldaña on 02-03-2025 Urea nitrogen/Creatinine [Mass ratio] 30.6 mg/mg High 10-20 [facility] Basophil percentageOrdered B y: Rodrigue Saldaña on 02-03-2025 Basophils/100 WBC (Bld) 0.7 % 0-1 [facility] Carbon dioxide, total [Moles /volume] in Central venous bloodOrdered By: Rodrigue Saldaña on 02-03-2025 CO2 [Moles/Vol] 22.6 mmol/L 21.0-32.0 [facility] Chloride assayOrdered By: Dwayne Saladña on 02-03-2025 Chloride [Moles/Vol] 105 mmol/L 98-108 [facility] Eosinophil percentageOrdered By: Rodrigue Saldaña on 02-03-2025 Eosinophils/100 WBC (Bld) 5.2 % High 0-5 [facility] Erythrocyte distribution wid th ratioOrdered By: Rodrigue Saldaña on 02-03-2025 Erythrocyte distribution width (RBC) [Ratio] 15.4 % High 11.6-14.6 [facility] Erythrocyte distribution wid th standard deviationOrdered By: naveed Saldaña on 02-03-2025 Erythrocyte distribution width (RBC) [Ratio] 49.9 fl High 35.1-43.9 [facility] Glomerular filtration rate ( GFR) estimation/1.73 sq m using serum, plasma, or whole bOrdered By: Rodrigue Saldaña on 02-03-2025 GFR/1.73 sq M.predicted among non-blacks MDRD (S/P/Bld) [Vol rate/Area] 36 mL/min/{1.73_m2} Low >60 [facility] Comment on above: mL/min/1.73m2 CKD-EP I Creatinine Equation (2020) Hematocrit Auto (Bld) [Volum e fraction]Ordered By: Rodrigue Saldaña on 02-03-2025 Hematocrit (Bld) [Volume fraction] 39.1 % 37-47 [facility] Hemoglobin measurementOrdere d By: Rodrigue Saldaña on 02-03-2025 Hemoglobin (Bld) [Mass/Vol] 12.9 g/dL 12.0-15.0 [facility] Immature granulocytes/100 WB C Auto (Bld)Ordered By: jessicasagamore beachmaryann Saldaña on 02-03-2025 Immature granulocytes/100 WBC (Bld) 0.600 % 0.0-0.9 [facility] Comment on above: IG% - Immature Granu locytes (promyelocytes, myelocytes and metamyelocytes) > 1% indicates that a LEFT SHIFT is Present. MCV (mean corpuscular volume ) determinationOrdered By: Rodrigue Saldaña on 02-03-2025 MCV (RBC) [Entitic vol] 89.3 fL 81-99 [facility] Mean corpuscular hemoglobin (MCH) determinationOrdered By: jessicasagamore beachmaryann Saldaña on 02-03-2025 MCH (RBC) [Entitic mass] 29.5 pg 27.0-32.0 [facility] Mean corpuscular hemoglobin concentration (MCHC) determinationOrdered By: Rodrigue Saldaña on 02-03-2025 MCHC (RBC) [Mass/Vol] 33.0 g/dL 32-36 [facility] Mean platelet volume determi nationOrdered By: jessicasagamore beachmaryann Saldaña on 02-03-2025 Platelet mean volume (Bld) [Entitic vol] 9.7 fL 6.2-12.0 [facility] Monocyte percentageOrdered B y: Rodrigue Saldaña on 02-03-2025 Monocytes/100 WBC (Bld) 8.2 % 0-10 [facility] Neutrophil percentageOrdered By: Rodrigue Saldaña on 02-03-2025 Neutrophils/100 WBC (Bld) 61.6 % 47-70 [facility] Nucleated red blood cell per centageOrdered By: Rodrigue Leifkalina on 02-03-2025 Nucleated RBC/100 WBC (Bld) [Ratio] 0 % 0-5 [facility] Platelet countOrdered By: Dwayne naveed Leifjaspreetaaron on 02-03-2025 Platelets (Bld) [#/Vol] 180 10*3/uL 150-450 [facility] Potassium measurement (mass/ volume)Ordered By: Dwaynejessicasalmaryann Yadavjaspreetaaron on 02-03-2025 Potassium (Unsp spec) [Mass/Vol] 4.5 mmol/L 3.3-5.1 [facility] RBC Auto (Bld) [#/Vol]Ordere d By: Rodrigue Leifjaspreetaaron on 02-03-2025 RBC (Bld) [#/Vol] 4.38 10*6/uL 4.2-5.4 [facility] Serum creatinine measurement (mass/volume)Ordered By: Dwaynenaveed Saldaña on 02-03-2025 Creatinine [Mass/Vol] 1.42 mg/dL High 0.70-1.20 [facility] Serum glucose measurement (m ass/volume)Ordered By: Dwaynejessicasalmaryann Yadavjaspreetaaron on 02-03-2025 Glucose [Mass/Vol] 104 mg/dL High 70-99 [facility] Serum or plasma calcium murali urement (mass/volume)Ordered By: Dwaynenaveed Saldaña on 02-03-2025 Calcium [Mass/Vol] 9.1 mg/dL 7.6-11.0 [facility] Serum or plasma urea nitroge n measurement (mass/volume)Ordered By: Rodrigue Saldaña on 02-03-2025 Urea nitrogen [Mass/Vol] 44 mg/dL High 4-19 [facility] Sodium levelOrdered By: Tea stern Leifjaspreetaaron on 02-03-2025 Sodium [Moles/Vol] 142 mmol/L 133-145 [facility] White blood cell (WBC) count Ordered By: Dwaynejessicasalmaryann Saldaña on 02-03-2025 WBC (Bld) [#/Vol] 6.8 10*3/uL 4.4-11.0 [facility] Anion gap in Serum or Plasma Ordered By: Rodrigue Saldaña on 01-28-2025 Anion gap [Moles/Vol] 12 mmol/L 5-15 [facility] BUN/creatinine ratioOrdered By: Rodrigue Saldaña on 01-28-2025 Urea nitrogen/Creatinine [Mass ratio] 39.0 mg/mg High 10- [facility] Carbon dioxide, total [Moles /volume] in Central venous bloodOrdered By: Rodrigue Saldaña on 01-28-2025 CO2 [Moles/Vol] 24.8 mmol/L 21.0-32.0 [facility] Chloride assayOrdered By: Dwayne Saldaña on 01-28-2025 Chloride [Moles/Vol] 105 mmol/L 98-108 [facility] Glomerular filtration rate ( GFR) estimation/1.73 sq m using serum, plasma, or whole bOrdered By: Rodrigue Saldaña on 01-28-2025 GFR/1.73 sq M.predicted among non-blacks MDRD (S/P/Bld) [Vol rate/Area] 39 mL/min/{1.73_m2} Low >60 [facility] Comment on above: mL/min/1.73m2 CKD-EP I Creatinine Equation (2020) Potassium measurement (mass/ volume)Ordered By: Rodrigue Saldaña on 01-28-2025 Potassium (Unsp spec) [Mass/Vol] 3.9 mmol/L 3.3-5.1 [facility] Serum creatinine measurement (mass/volume)Ordered By: Rodrigue Saldaña on 01-28-2025 Creatinine [Mass/Vol] 1.34 mg/dL High 0.70-1.20 [facility] Serum glucose measurement (m ass/volume)Ordered By: Rodrigue Saldaña on 01-28-2025 Glucose [Mass/Vol] 99 mg/dL 70-99 [facility] Serum or plasma calcium murali urement (mass/volume)Ordered By: Rodrigue Saldaña on 01-28-2025 Calcium [Mass/Vol] 8.7 mg/dL 7.6-11.0 [facility] Serum or plasma urea nitroge n measurement (mass/volume)Ordered By: Rodrigue Saldaña on 01-28-2025 Urea nitrogen [Mass/Vol] 52 mg/dL High 4-19 [facility] Sodium levelOrdered By: Dwaynejessica jarred Leifjaspreetaaron on 01-28-2025 Sodium [Moles/Vol] 142 mmol/L 133-145 [facility] Calculated very low density lipoprotein (VLDL) cholesterol measurementOrdered By: Regine Morales on 01-19-2025 Calculated very low density lipoprotein (VLDL) cholesterol measurement 18 mg/dL 5-40 [facility] LDL calc ser/plasOrdered By: Regine Morales on 01-19-2025 Cholesterol in LDL [Mass/Vol] 82 mg/dL [facility] Comment on above: Uiigxdbgvt=737-376 m g/dL & Higher Wcaa=457 mg/dL or greater Screening total cholesterol/ high density lipoprotein (HDL) cholesterol ratioOrdered By: Regine Morales on 01-19-2025 Cholesterol.total/Marixa sterol in HDL [Mass ratio] 3.00 {ratio} [facility] Serum or plasma cholesterol in HDL measurement (mass/volume)Ordered By: Regine Morales on 01-19-2025 Cholesterol in HDL [Mass/Vol] 50 mg/dL >40 [facility] Comment on above: National Cholesterol Education Program (NCEP) guidelines:<40 mg/dL: Low HDL-cholesterol (major risk factor for CHD)>= 60 mg/dL: High HDL-cholesterol (negative risk factor for CHD)HDL-cholesterol is affected by a number of factors, e.g. smoking, exercise, hormones, sex and age. Serum or plasma cholesterol measurement (mass/volume)Ordered By: Regine Morales on 01-19-2025 Cholesterol [Mass/Vol] 150 mg/dL <201 [facility] Comment on above: Cholesterol level, D esirable <200 mg/dLBorderline high cholesterol 200-239 mg/dLHigh cholesterol >=240 mg/dLRecommendations of the NCEP Adult Treatment Panel for the following risk-cutoff thresholds for the [place] population. Triglycerides measurementOrd ered By: Regine Morales on 01-19-2025 Triglyceride [Mass/Vol] 89 mg/dL <199 [facility] Comment on above: The drugs N-Acetylcy steine and Metamizole may falsely depress this assay. Normal range: <150 mg/dLBorderline High: 150-199 mg/dLHigh: 200-499 mg/dLVery High: >500 mg/dL Vitamin B12 ser/plasOrdered By: Regine Morales on 01-19-2025 Cobalamin (Vitamin B12) [Mass/Vol] 353 pg/mL 180-914 [facility] Anion gap in Serum or Plasma Ordered By: Rodrigue Saldaña on 01-14-2025 Anion gap [Moles/Vol] 12 mmol/L 5-15 [facility] BUN/creatinine ratioOrdered By: Rodrigue Saldaña on 01-14-2025 Urea nitrogen/Creatinine [Mass ratio] 38.2 mg/mg High 10- [facility] Carbon dioxide, total [Moles /volume] in Central venous bloodOrdered By: Rodrigue Saldaña on 01-14-2025 CO2 [Moles/Vol] 23.5 mmol/L 21.0-32.0 [facility] Chloride assayOrdered By: Dwayne Saldaña on 01-14-2025 Chloride [Moles/Vol] 104 mmol/L 98-108 [facility] Glomerular filtration rate ( GFR) estimation/1.73 sq m using serum, plasma, or whole bOrdered By: Rodrigue Saldaña on 01-14-2025 GFR/1.73 sq M.predicted among non-blacks MDRD (S/P/Bld) [Vol rate/Area] 30 mL/min/{1.73_m2} Low >60 [facility] Comment on above: mL/min/1.73m2 CKD-EP I Creatinine Equation (2020) Potassium measurement (mass/ volume)Ordered By: Rodrigue Saldaña on 01-14-2025 Potassium (Unsp spec) [Mass/Vol] 4.4 mmol/L 3.3-5.1 [facility] Serum creatinine measurement (mass/volume)Ordered By: Rodrigue Saldaña on 01-14-2025 Creatinine [Mass/Vol] 1.65 mg/dL High 0.70-1.20 [facility] Serum glucose measurement (m ass/volume)Ordered By: Rodrigue Saldaña on 01-14-2025 Glucose [Mass/Vol] 109 mg/dL High 70-99 [facility] Serum or plasma calcium murali urement (mass/volume)Ordered By: jessicasagamore beachmaryann Saldaña on 01-14-2025 Calcium [Mass/Vol] 8.9 mg/dL 7.6-11.0 [facility] Serum or plasma urea nitroge n measurement (mass/volume)Ordered By: [facility] on 01-14-2025 Urea nitrogen [Mass/Vol] 63 mg/dL High 4-19 [facility] Sodium levelOrdered By: [facility] jarred Saldaña on 01-14-2025 Sodium [Moles/Vol] 139 mmol/L 133-145 [facility] Gastroenterology Visit Repor ton 01-09-2025 Gastroenterology Visit Report [facility] [address] [place] [address] OFFICE VISIT Date of Service: 01/09/25 MR#: [id number] Acct: [id number] Name: YAA WARD Rep #: [id number] : 1940 Provider: WINNIE Chavis Age/Sex: 84/F Location: [facility] [place].[facility] Status: Signed Intake Vital Signs 12/22/24 15:09 Height 5 ft 3 in Intake Visit Reasons: GERD, DYSPHAGIA Chief Complaint: Barretts esophagus Tip Stretcher Required: No Is patient in pain?: No Allergies clindamycin Allergy (Unknown, Unverified 12/22/24 15:12) Rash/Itching morphine Allergy (Unknown, Unverified 12/22/24 15:12) GI Upset, Vomiting Penicillins Allergy (Unknown, Unverified 12/22/24 15:12) Rash Bgysnek-GBG-XbO Reductase Inhibitor Allergy (Unknown, Unverified 12/22/24 15:12) [...] pain, n/v/c, and bloody stools. [facility] Medical History (Updated 12/22/24 @ 15:40 by [...] Dry eye (more content not included)... Normal [facility] Absolute lymphocyte countOrd ered By: Rodrigue Saldaña on 01-05-2025 Lymphocytes Auto (Unsp spec) [#/Vol] 1.91 10*3/uL 0.83-4.51 [facility] Absolute neutrophil countOrd ered By: Rodrigue Saldaña on 01-05-2025 Neutrophils (Bld) [#/Vol] 5.7 10*3/uL 2.0-7.7 [facility] Anion gap in Serum or Plasma Ordered By: Rodrigue Saldaña on 01-05-2025 Anion gap [Moles/Vol] 15 mmol/L 5-15 [facility] Automated lymphocyte count a s percentage of total leukocytesOrdered By: Rodrigue Saldaña on 01-05-2025 Lymphocytes/100 WBC Auto (Unsp spec) 22.4 % 19-41 [facility] BUN/creatinine ratioOrdered By: jessicasagamore beachmaryann Saldaña on 01-05-2025 Urea nitrogen/Creatinine [Mass ratio] 31.3 mg/mg High 10-20 [facility] Basophil percentageOrdered B y: Rodrigue Saldaña on 01-05-2025 Basophils/100 WBC (Bld) 0.5 % 0-1 [facility] Carbon dioxide, total [Moles /volume] in Central venous bloodOrdered By: naveed Saldaña on 01-05-2025 CO2 [Moles/Vol] 21.6 mmol/L 21.0-32.0 [facility] Chloride assayOrdered By: Dwayne Saldaña on 01-05-2025 Chloride [Moles/Vol] 103 mmol/L 98-108 [facility] Eosinophil percentageOrdered By: naveed Saldaña on 01-05-2025 Eosinophils/100 WBC (Bld) 3.6 % 0-5 [facility] Erythrocyte distribution wid th ratioOrdered By: naveed Saldaña on 01-05-2025 Erythrocyte distribution width (RBC) [Ratio] 15.3 % High 11.6-14.6 [facility] Erythrocyte distribution wid th standard deviationOrdered By: jessicasagamore beachmaryann Saldaña on 01-05-2025 Erythrocyte distribution width (RBC) [Ratio] 49.3 fl High 35.1-43.9 [facility] Glomerular filtration rate ( GFR) estimation/1.73 sq m using serum, plasma, or whole bOrdered By: Rodrigue Saldaña on 01-05-2025 GFR/1.73 sq M.predicted among non-blacks MDRD (S/P/Bld) [Vol rate/Area] 30 mL/min/{1.73_m2} Low >60 [facility] Comment on above: mL/min/1.73m2 CKD-EP I Creatinine Equation (2020) Hematocrit Auto (Bld) [Volum e fraction]Ordered By: Rodrigue Saldaña on 01-05-2025 Hematocrit (Bld) [Volume fraction] 42.1 % 37-47 [facility] Hemoglobin measurementOrdere d By: naveed Saldaña on 01-05-2025 Hemoglobin (Bld) [Mass/Vol] 13.6 g/dL 12.0-15.0 [facility] Immature granulocytes/100 WB C Auto (Bld)Ordered By: naveed Saldaña on 01-05-2025 Immature granulocytes/100 WBC (Bld) 0.400 % 0.0-0.9 [facility] Comment on above: IG% - Immature Granu locytes (promyelocytes, myelocytes and metamyelocytes) > 1% indicates that a LEFT SHIFT is Present. MCV (mean corpuscular volume ) determinationOrdered By: Rodrigue Saldaña on 01-05-2025 MCV (RBC) [Entitic vol] 88.8 fL 81-99 [facility] Mean corpuscular hemoglobin (MCH) determinationOrdered By: Rodrigue Saldaña on 01-05-2025 MCH (RBC) [Entitic mass] 28.7 pg 27.0-32.0 [facility] Mean corpuscular hemoglobin concentration (MCHC) determinationOrdered By: naveed Saldaña on 01-05-2025 MCHC (RBC) [Mass/Vol] 32.3 g/dL 32-36 [facility] Mean platelet volume determi nationOrdered By: Rodrigue Saldaña on 01-05-2025 Platelet mean volume (Bld) [Entitic vol] 10.0 fL 6.2-12.0 [facility] Monocyte percentageOrdered B y: Rodrigue Saldaña on 01-05-2025 Monocytes/100 WBC (Bld) 7.0 % 0-10 [facility] Neutrophil percentageOrdered By: Rodrigue Saldaña on 01-05-2025 Neutrophils/100 WBC (Bld) 66.1 % 47-70 [facility] Nucleated red blood cell per centageOrdered By: Rodrigue Saldaña on 01-05-2025 Nucleated RBC/100 WBC (Bld) [Ratio] 0 % 0-5 [facility] Platelet countOrdered By: Dwayne Saldaña on 01-05-2025 Platelets (Bld) [#/Vol] 190 10*3/uL 150-450 [facility] Potassium measurement (mass/ volume)Ordered By: Rodrigue Saldaña on 01-05-2025 Potassium (Unsp spec) [Mass/Vol] 4.9 mmol/L 3.3-5.1 [facility] RBC Auto (Bld) [#/Vol]Ordere d By: Rodrigue Saldaña on 01-05-2025 RBC (Bld) [#/Vol] 4.74 10*6/uL 4.2-5.4 [facility] Serum creatinine measurement (mass/volume)Ordered By: Rodrigue Saldaña on 01-05-2025 Creatinine [Mass/Vol] 1.65 mg/dL High 0.70-1.20 [facility] Serum glucose measurement (m ass/volume)Ordered By: Rodrigue Saldaña on 01-05-2025 Glucose [Mass/Vol] 92 mg/dL 70-99 [facility] Serum or plasma calcium murali urement (mass/volume)Ordered By: Rodrigue Saldaña on 01-05-2025 Calcium [Mass/Vol] 9.3 mg/dL 7.6-11.0 [facility] Serum or plasma urea nitroge n measurement (mass/volume)Ordered By: Rodrigue Saldaña on 01-05-2025 Urea nitrogen [Mass/Vol] 52 mg/dL High 4-19 [facility] Sodium levelOrdered By: Tea Saldaña on 01-05-2025 Sodium [Moles/Vol] 139 mmol/L 133-145 [facility] White blood cell (WBC) count Ordered By: Rodrigue Saldaña on 01-05-2025 WBC (Bld) [#/Vol] 8.5 10*3/uL 4.4-11.0 [facility] Potassium measurement (mass/ volume)Ordered By: Rodrigue Saldaña on 01-02-2025 Potassium (Unsp spec) [Mass/Vol] 4.8 mmol/L 3.3-5.1 [facility] Anion gap in Serum or Plasma Ordered By: Rodrigue Saldaña on 12-31-2024 Anion gap [Moles/Vol] 11 mmol/L 5-15 [facility] BUN/creatinine ratioOrdered By: Rodrigue Saldaña on 12-31-2024 Urea nitrogen/Creatinine [Mass ratio] 36.3 mg/mg High 10-20 [facility] Carbon dioxide, total [Moles /volume] in Central venous bloodOrdered By: Rodrigue Saldaña on 12-31-2024 CO2 [Moles/Vol] 21.7 mmol/L 21.0-32.0 [facility] Chloride assayOrdered By: Dwayne Saldaña on 12-31-2024 Chloride [Moles/Vol] 107 mmol/L 98-108 [facility] Glomerular filtration rate ( GFR) estimation/1.73 sq m using serum, plasma, or whole bOrdered By: Rodrigue Saldaña on 12-31-2024 GFR/1.73 sq M.predicted among non-blacks MDRD (S/P/Bld) [Vol rate/Area] 32 mL/min/{1.73_m2} Low >60 [facility] Comment on above: mL/min/1.73m2 CKD-EP I Creatinine Equation (2020) Potassium measurement (mass/ volume)Ordered By: Rodrigue Saldaña on 12-31-2024 Potassium (Unsp spec) [Mass/Vol] 5.2 mmol/L High 3.3-5.1 [facility] Serum creatinine measurement (mass/volume)Ordered By: Rodrigue Saldaña on 12-31-2024 Creatinine [Mass/Vol] 1.58 mg/dL High 0.70-1.20 [facility] Serum glucose measurement (m ass/volume)Ordered By: Rodrigue Saldaña on 12-31-2024 Glucose [Mass/Vol] 112 mg/dL High 70-99 [facility] Serum or plasma calcium murali urement (mass/volume)Ordered By: Rodrigue Saldaña on 12-31-2024 Calcium [Mass/Vol] 8.7 mg/dL 7.6-11.0 [facility] Serum or plasma urea nitroge n measurement (mass/volume)Ordered By: Rodrigue Saldaña on 12-31-2024 Urea nitrogen [Mass/Vol] 57 mg/dL High 4-19 [facility] Sodium levelOrdered By: Tea Saldaña on 12-31-2024 Sodium [Moles/Vol] 140 mmol/L 133-145 [facility] Orthopedic Visit Reporton Orthopedic Visit Report [facility] [address] [place] [address] OFFICE VISIT Date of Service: 12/22/24 MR#: [id number] Acct: [id number] Name: YAA WARD Rep #: [id number] : 1940 Provider: Dr. Arjun skaggs MD Age/Sex: 84/F Location: [facility] [place].ASIF Status: Signed with Addenda ADDENDUM by RORY [...] Performing Provider: Arjun Felton MD Performing Location: [facility] Administered by: Arjun Felton MD on 12/22/24 15:45 Dose Route Admin Location Dispensed Lot Number Expiration Date NDC Man ufacturer 40 mg intra-articular Left shoulder 1 mL [id number] 01/08/26 0294-7790-42 [facility] Date cc: * Signed Intake [...] Penicillins Allergy (Unknown, Unverified 12/22/24 15:12) Rash Jtzfuro-ZOH-SyY Reductase Inhibitor Allergy (Unknown, Unverified 12/22/24 15:12) [...] in the past year?: No [facility] Medical History (Updated 12/22/24 @ 15:40 by Arjun Felton MD) Primary osteoarthritis, left shoulder Left shoulder pain Colonoscopy planned UTI (urinary tract infection) Uterine fibroid Lumbar spinal stenosis Other lack of coordination Muscle weakness (generalized) Need for assistance with personal care Personal history of colonic polyps Family history of malignant neoplasm of digestive organs Depression, unspecified Irritable bowel (more content not included)... Normal [facility] Shoulder min 2 Viewson 12-22 Shoulder min 2 Views [facility] [address] [place] [address] Shoulder min 2 Views MR#: [id number] Acct: [id number] Name: YAA WARD Rep #: [id number] : [id number] F [id number] From: Nadia garcia MD PCP: Dr. Rodrigue Saldaña MD Status: DEP AMB Study: Shoulder min 2 Views Date of Exam: 12/22/24 Exam# [id number] Ordering Dr: Arjun Felton MD PROCEDURE: SHOULDER [...] of an acute bone abnormality. Reading Location: [place] [address] CC: Dr. Rodrigue Saldaña MD; Dr. Arjun Felton MD Analytics Intern: Signed Normal [facility] Anion gap in Serum or Plasma Ordered By: Regine Morales on 12-17-2024 Anion gap [Moles/Vol] 17 mmol/L High 5-15 [facility] BUN/creatinine ratioOrdered By: Regine Morales on 12-17-2024 Urea nitrogen/Creatinine [Mass ratio] 30.2 mg/mg High 10-20 [facility] Carbon dioxide, total [Moles /volume] in Central venous bloodOrdered By: Regine Morales on 12-17-2024 CO2 [Moles/Vol] 17.9 mmol/L Low 21.0-32.0 [facility] Chloride assayOrdered By: Brian Morales on 12-17-2024 Chloride [Moles/Vol] 101 mmol/L 98-108 [facility] GFR/1.73 sq M.predicted benita g non-blacks MDRD (S/P/Bld) [Vol rate/Area]Ordered By: Regine Morales on 12-17-2024 Estimated GFR (MDRD) Non-Af Amer 30 Low >60 [facility] Comment on above: mL/min/1.73m2 CKD-EP I Creatinine Equation (2020) Glomerular filtration rate ( GFR) estimation/1.73 sq m using serum, plasma, or whole bOrdered By: Regine Morales on 12-17-2024 GFR/1.73 sq M.predicted among non-blacks MDRD (S/P/Bld) [Vol rate/Area] 30 mL/min/{1.73_m2} Low >60 [facility] Comment on above: mL/min/1.73m2 CKD-EP I Creatinine Equation (2020) Potassium (Unsp spec) [Mass/ Vol]Ordered By: Regine Morales on 12-17-2024 Potassium [Moles/Vol] 4.8 mmol/L 3.3-5.1 [facility] Comment on above: Hemolysis present, R esults could be affected. Potassium measurement (mass/ volume)Ordered By: Regine Morales on 12-17-2024 Potassium (Unsp spec) [Mass/Vol] 4.8 mmol/L 3.3-5.1 [facility] Comment on above: Hemolysis present, R esults could be affected. Serum creatinine measurement (mass/volume)Ordered By: Regine Morales on 12-17-2024 Creatinine [Mass/Vol] 1.69 mg/dL High 0.70-1.20 [facility] Serum glucose measurement (m ass/volume)Ordered By: Regine Morales on 12-17-2024 Glucose [Mass/Vol] 89 mg/dL 70-99 [facility] Serum or plasma calcium murali urement (mass/volume)Ordered By: Regine Morales on 12-17-2024 Calcium [Mass/Vol] 9.5 mg/dL 7.6-11.0 [facility] Serum or plasma urea nitroge n measurement (mass/volume)Ordered By: Regine Morales on 12-17-2024 Urea nitrogen [Mass/Vol] 51 mg/dL High 4-19 [facility] Sodium levelOrdered By: Noa eddie Sweetarabella on 12-17-2024 Sodium [Moles/Vol] 136 mmol/L 133-145 [facility] Absolute lymphocyte countOrd ered By: Teaongmaryann Saldaña on 12-08-2024 Lymphocytes Auto (Unsp spec) [#/Vol] 2.02 10*3/uL 0.83-4.51 [facility] Absolute neutrophil countOrd ered By: Efjessicaongmaryann Saldaña on 12-08-2024 Neutrophils (Bld) [#/Vol] 3.5 10*3/uL 2.0-7.7 [facility] Anion gap in Serum or Plasma Ordered By: Rodrigue Saldaña on 12-08-2024 Anion gap [Moles/Vol] 20 mmol/L High 5-15 [facility] Automated lymphocyte count a s percentage of total leukocytesOrdered By: Rodrigue Saldaña on 12-08-2024 Lymphocytes/100 WBC Auto (Unsp spec) 30.4 % 19-41 [facility] BUN/creatinine ratioOrdered By: Rodrigue Saldaña on 12-08-2024 Urea nitrogen/Creatinine [Mass ratio] 34.5 mg/mg High 10-20 [facility] Basophil percentageOrdered B y: Rodrigue Saldaña on 12-08-2024 Basophils/100 WBC (Bld) 0.9 % 0-1 [facility] Carbon dioxide, total [Moles /volume] in Central venous bloodOrdered By: Rodrigue Saldaña on 12-08-2024 CO2 [Moles/Vol] 14.3 mmol/L Low 21.0-32.0 [facility] Chloride assayOrdered By: Dwayne Saldaña on 12-08-2024 Chloride [Moles/Vol] 105 mmol/L 98-108 [facility] Eosinophil percentageOrdered By: Rodrigue Saldaña on 12-08-2024 Eosinophils/100 WBC (Bld) 6.3 % High 0-5 [facility] Erythrocyte distribution wid th (RBC) [Ratio]Ordered By: Rodrigue Saldaña on 12-08-2024 Erythrocyte distribution width (RBC) [Entitic vol] 48.8 fL High 35.1-43.9 [facility] Erythrocyte distribution wid th ratioOrdered By: Rodrigue Saldaña on 12-08-2024 Erythrocyte distribution width (RBC) [Ratio] 15.2 % High 11.6-14.6 [facility] Erythrocyte distribution wid th standard deviationOrdered By: Rodrigue Saldaña on 12-08-2024 Erythrocyte distribution width (RBC) [Ratio] 48.8 fl High 35.1-43.9 [facility] GFR/1.73 sq M.predicted benita g non-blacks MDRD (S/P/Bld) [Vol rate/Area]Ordered By: Rodrigue Saldaña on 12-08-2024 Estimated GFR (MDRD) Non-Af Amer 33 Low >60 [facility] Comment on above: mL/min/1.73m2 CKD-EP I Creatinine Equation (2020) Glomerular filtration rate ( GFR) estimation/1.73 sq m using serum, plasma, or whole bOrdered By: Rodrigue Saldaña on 12-08-2024 GFR/1.73 sq M.predicted among non-blacks MDRD (S/P/Bld) [Vol rate/Area] 33 mL/min/{1.73_m2} Low >60 [facility] Comment on above: mL/min/1.73m2 CKD-EP I Creatinine Equation (2020) Hematocrit Auto (Bld) [Volum e fraction]Ordered By: Rodrigue Saldaña 12-08-2024 Hematocrit (Bld) [Volume fraction] 39.0 % 37-47 [facility] Hemoglobin measurementOrdere d By: Rodrigue Saldaña on 12-08-2024 Hemoglobin (Bld) [Mass/Vol] 12.8 g/dL 12.0-15.0 [facility] Immature granulocytes/100 WB C Auto (Bld)Ordered By: Rodrigue Saldaña on 12-08-2024 Immature granulocytes/100 WBC (Bld) 0.300 % 0.0-0.9 [facility] Comment on above: IG% - Immature Granu locytes (promyelocytes, myelocytes and metamyelocytes) > 1% indicates that a LEFT SHIFT is Present. Lymphocytes Auto (Unsp spec) [#/Vol]Ordered By: Rodrigue Saldaña on 12-08-2024 Lymphocytes (Bld) [#/Vol] 2.02 10*3/uL 0.83-4.51 [facility] Lymphocytes/100 WBC Auto (Un sp spec)Ordered By: Rodrigue Saldaña on 12-08-2024 Lymphocytes/100 WBC (Bld) 30.4 % 19-41 [facility] MCV (mean corpuscular volume ) determinationOrdered By: Rodrigue Saldaña on 12-08-2024 MCV (RBC) [Entitic vol] 88.4 fL 81-99 [facility] Mean corpuscular hemoglobin (MCH) determinationOrdered By: Rodrigue Saldaña on 12-08-2024 MCH (RBC) [Entitic mass] 29.0 pg 27.0-32.0 [facility] Mean corpuscular hemoglobin concentration (MCHC) determinationOrdered By: Rodrigue Saldaña on 12-08-2024 MCHC (RBC) [Mass/Vol] 32.8 g/dL 32-36 [facility] Mean platelet volume determi nationOrdered By: Rodrigue Saldaña on 12-08-2024 Platelet mean volume (Bld) [Entitic vol] 10.2 fL 6.2-12.0 [facility] Monocyte percentageOrdered B y: Rodrigue Saldaña on 12-08-2024 Monocytes/100 WBC (Bld) 8.7 % 0-10 [facility] Neutrophil percentageOrdered By: Rodrigue Saldaña on 12-08-2024 Neutrophils/100 WBC (Bld) 53.4 % 47-70 [facility] Nucleated red blood cell per centageOrdered By: naveed Saldaña on 12-08-2024 Nucleated RBC/100 WBC (Bld) [Ratio] 0 % 0-5 [facility] Platelet countOrdered By: Dwayne Saldaña on 12-08-2024 Platelets (Bld) [#/Vol] 186 10*3/uL 150-450 [facility] Potassium (Unsp spec) [Mass/ Vol]Ordered By: Rodrigue Saldaña on 12-08-2024 Potassium [Moles/Vol] 4.8 mmol/L 3.3-5.1 [facility] Potassium measurement (mass/ volume)Ordered By: Rodrigue Saldaña on 12-08-2024 Potassium (Unsp spec) [Mass/Vol] 4.8 mmol/L 3.3-5.1 [facility] RBC Auto (Bld) [#/Vol]Ordere d By: Rodrigue Saldaña on 12-08-2024 RBC (Bld) [#/Vol] 4.41 10*6/uL 4.2-5.4 [facility] Serum creatinine measurement (mass/volume)Ordered By: Rodrigue Saldaña on 12-08-2024 Creatinine [Mass/Vol] 1.54 mg/dL High 0.70-1.20 [facility] Serum glucose measurement (m ass/volume)Ordered By: Rodrigue Saldaña on 12-08-2024 Glucose [Mass/Vol] 79 mg/dL 70-99 [facility] Serum or plasma calcium murali urement (mass/volume)Ordered By: Rodrigue Yadavjaspreetaaron on 12-08-2024 Calcium [Mass/Vol] 9.2 mg/dL 7.6-11.0 [facility] Serum or plasma urea nitroge n measurement (mass/volume)Ordered By: Rodrigue Saldaña on 12-08-2024 Urea nitrogen [Mass/Vol] 53 mg/dL High 4-19 [facility] Sodium levelOrdered By: Tea skaggsbenjamin Piper on 12-08-2024 Sodium [Moles/Vol] 139 mmol/L 133-145 [facility] White blood cell (WBC) count Ordered By: Rodrigue Saldaña on 12-08-2024 WBC (Bld) [#/Vol] 6.6 10*3/uL 4.4-11.0 [facility] Anion gap in Serum or Plasma Ordered By: Regine Morales on 12-03-2024 Anion gap [Moles/Vol] 15 mmol/L 5-15 [facility] BUN/creatinine ratioOrdered By: Regine Morales on 12-03-2024 Urea nitrogen/Creatinine [Mass ratio] 30.2 mg/mg High 10-20 [facility] Carbon dioxide, total [Moles /volume] in Central venous bloodOrdered By: Regine Morales on 12-03-2024 CO2 [Moles/Vol] 20.8 mmol/L Low 21.0-32.0 [facility] Chloride assayOrdered By: Brian Morales on 12-03-2024 Chloride [Moles/Vol] 104 mmol/L 98-108 [facility] GFR/1.73 sq M.predicted benita g non-blacks MDRD (S/P/Bld) [Vol rate/Area]Ordered By: Regine Morales on 12-03-2024 Estimated GFR (MDRD) Non-Af Amer 29 Low >60 [facility] Comment on above: mL/min/1.73m2 CKD-EP I Creatinine Equation (2020) Glomerular filtration rate ( GFR) estimation/1.73 sq m using serum, plasma, or whole bOrdered By: Regine Morales on 12-03-2024 GFR/1.73 sq M.predicted among non-blacks MDRD (S/P/Bld) [Vol rate/Area] 29 mL/min/{1.73_m2} Low >60 [facility] Comment on above: mL/min/1.73m2 CKD-EP I Creatinine Equation (2020) Potassium (Unsp spec) [Mass/ Vol]Ordered By: Regine Morales on 12-03-2024 Potassium [Moles/Vol] 5.0 mmol/L 3.3-5.1 [facility] Potassium measurement (mass/ volume)Ordered By: Regine Morales on 12-03-2024 Potassium (Unsp spec) [Mass/Vol] 5.0 mmol/L 3.3-5.1 [facility] Serum creatinine measurement (mass/volume)Ordered By: Regine Morales on 12-03-2024 Creatinine [Mass/Vol] 1.70 mg/dL High 0.70-1.20 [facility] Serum glucose measurement (m ass/volume)Ordered By: Regine Morales on 12-03-2024 Glucose [Mass/Vol] 89 mg/dL 70-99 [facility] Serum or plasma calcium murali urement (mass/volume)Ordered By: Regine Morales on 12-03-2024 Calcium [Mass/Vol] 8.1 mg/dL 7.6-11.0 [facility] Serum or plasma urea nitroge n measurement (mass/volume)Ordered By: Regine Morales on 12-03-2024 Urea nitrogen [Mass/Vol] 51 mg/dL High 4-19 [facility] Sodium levelOrdered By: Noa Morales on 12-03-2024 Sodium [Moles/Vol] 141 mmol/L 133-145 [facility] Anion gap in Serum or Plasma Ordered By: Regine Morales on 11-19-2024 Anion gap [Moles/Vol] 15 mmol/L 5-15 [facility] BUN/creatinine ratioOrdered By: Regine Morales on 11-19-2024 Urea nitrogen/Creatinine [Mass ratio] 32.7 mg/mg High 10-20 [facility] Carbon dioxide, total [Moles /volume] in Central venous bloodOrdered By: Regine Morales on 11-19-2024 CO2 [Moles/Vol] 20.2 mmol/L Low 21.0-32.0 [facility] Chloride assayOrdered By: Brian Morales on 11-19-2024 Chloride [Moles/Vol] 106 mmol/L 98-108 [facility] GFR/1.73 sq M.predicted benita g non-blacks MDRD (S/P/Bld) [Vol rate/Area]Ordered By: Regine Morales on 11-19-2024 Estimated GFR (MDRD) Non-Af Amer 29 Low >60 [facility] Comment on above: mL/min/1.73m2 CKD-EP I Creatinine Equation (2020) Glomerular filtration rate ( GFR) estimation/1.73 sq m using serum, plasma, or whole bOrdered By: Regine Morales on 11-19-2024 GFR/1.73 sq M.predicted among non-blacks MDRD (S/P/Bld) [Vol rate/Area] 29 mL/min/{1.73_m2} Low >60 [facility] Comment on above: mL/min/1.73m2 CKD-EP I Creatinine Equation (2020) Potassium (Unsp spec) [Mass/ Vol]Ordered By: Regine Morales on 11-19-2024 Potassium [Moles/Vol] 4.4 mmol/L 3.3-5.1 [facility] Potassium measurement (mass/ volume)Ordered By: Regine Morales on 11-19-2024 Potassium (Unsp spec) [Mass/Vol] 4.4 mmol/L 3.3-5.1 [facility] Serum creatinine measurement (mass/volume)Ordered By: Regine Morales on 11-19-2024 Creatinine [Mass/Vol] 1.70 mg/dL High 0.70-1.20 [facility] Serum glucose measurement (m ass/volume)Ordered By: Regine Morales on 11-19-2024 Glucose [Mass/Vol] 118 mg/dL High 70-99 [facility] Serum or plasma calcium murali urement (mass/volume)Ordered By: Regine Morales on 11-19-2024 Calcium [Mass/Vol] 9.3 mg/dL 7.6-11.0 [facility] Serum or plasma urea nitroge n measurement (mass/volume)Ordered By: Regine Morales on 11-19-2024 Urea nitrogen [Mass/Vol] 56 mg/dL High 4-19 [facility] Sodium levelOrdered By: Noa Morales on 11-19-2024 Sodium [Moles/Vol] 142 mmol/L 133-145 [facility] Absolute lymphocyte countOrd ered By: Rodrigue Saldaña on 11-10-2024 Lymphocytes Auto (Unsp spec) [#/Vol] 1.74 10*3/uL 0.83-4.51 [facility] Absolute neutrophil countOrd ered By: Rodrigue Saldaña on 11-10-2024 Neutrophils (Bld) [#/Vol] 3.5 10*3/uL 2.0-7.7 [facility] Automated lymphocyte count a s percentage of total leukocytesOrdered By: Rodrigue Saldaña on 11-10-2024 Lymphocytes/100 WBC Auto (Unsp spec) 26.8 % 19-41 [facility] BUN/creatinine ratioOrdered By: Rodrigue Saldaña on 11-10-2024 Urea nitrogen/Creatinine [Mass ratio] 32.8 mg/mg High 10-20 [facility] Basophil percentageOrdered B y: Rodrigue Saldaña on 11-10-2024 Basophils/100 WBC (Bld) 0.6 % 0-1 [facility] Carbon dioxide measurementOr dered By: Rodrigue Saldaña on 11-10-2024 CO2 [Moles/Vol] 21.7 mmol/L Low 22.0-29.0 [facility] Chloride measurementOrdered By: Rodrigue Saldaña on 11-10-2024 Chloride [Moles/Vol] 106 mmol/L 96-108 [facility] Eosinophil percentageOrdered By: Rodrigue Saldaña on 11-10-2024 Eosinophils/100 WBC (Bld) 8.6 % High 0-5 [facility] Erythrocyte distribution wid th (RBC) [Ratio]Ordered By: Rodrigue Saldaña on 11-10-2024 Erythrocyte distribution width (RBC) [Entitic vol] 52.1 fL High 35.1-43.9 [facility] Erythrocyte distribution wid th ratioOrdered By: Rodrigue Saldaña on 11-10-2024 Erythrocyte distribution width (RBC) [Ratio] 15.9 % High 11.6-14.6 [facility] Erythrocyte distribution wid th standard deviationOrdered By: Teasagamore beachmaryann Saldaña on 11-10-2024 Erythrocyte distribution width (RBC) [Ratio] 52.1 fl High 35.1-43.9 [facility] GFR/1.73 sq M.predicted benita g non-blacks MDRD (S/P/Bld) [Vol rate/Area]Ordered By: Rodrigue Saldaña on 11-10-2024 Estimated GFR (MDRD) Non-Af Amer 37 Low >60 [facility] Comment on above: mL/min/1.73m2 CKD-EP I Creatinine Equation (2020) Glomerular filtration rate ( GFR) estimation/1.73 sq m using serum, plasma, or whole bOrdered By: Rodrigue Saldaña on 11-10-2024 GFR/1.73 sq M.predicted among non-blacks MDRD (S/P/Bld) [Vol rate/Area] 37 mL/min/{1.73_m2} Low >60 [facility] Comment on above: mL/min/1.73m2 CKD-EP I Creatinine Equation (2020) Hematocrit Auto (Bld) [Volum e fraction]Ordered By: Rodrigue Saldaña on 11-10-2024 Hematocrit (Bld) [Volume fraction] 38.2 % 37-47 [facility] Hemoglobin measurementOrdere d By: Rodrigue Saldaña on 11-10-2024 Hemoglobin (Bld) [Mass/Vol] 12.3 g/dL 12.0-15.0 [facility] Immature granulocytes/100 WB C Auto (Bld)Ordered By: naveed Saldaña on 11-10-2024 Immature granulocytes/100 WBC (Bld) 0.300 % 0.0-0.9 [facility] Comment on above: IG% - Immature Granu locytes (promyelocytes, myelocytes and metamyelocytes) > 1% indicates that a LEFT SHIFT is Present. Lymphocytes Auto (Unsp spec) [#/Vol]Ordered By: Rodrigue Saldaña on 11-10-2024 Lymphocytes (Bld) [#/Vol] 1.74 10*3/uL 0.83-4.51 [facility] Lymphocytes/100 WBC Auto (Un sp spec)Ordered By: Rodrigue Saldaña on 11-10-2024 Lymphocytes/100 WBC (Bld) 26.8 % 19-41 [facility] MCV (mean corpuscular volume ) determinationOrdered By: Rodrigue Saldaña on 11-10-2024 MCV (RBC) [Entitic vol] 89.9 fL 81-99 [facility] Mean corpuscular hemoglobin (MCH) determinationOrdered By: Rdorigue Saldaña on 11-10-2024 MCH (RBC) [Entitic mass] 28.9 pg 27.0-32.0 [facility] Mean corpuscular hemoglobin concentration (MCHC) determinationOrdered By: Rodrigue Saldaña on 11-10-2024 MCHC (RBC) [Mass/Vol] 32.2 g/dL 32-36 [facility] Mean platelet volume determi nationOrdered By: Rodrigue Saldaña on 11-10-2024 Platelet mean volume (Bld) [Entitic vol] 9.7 fL 6.2-12.0 [facility] Monocyte percentageOrdered B y: Rodrigue Saldaña on 11-10-2024 Monocytes/100 WBC (Bld) 9.1 % 0-10 [facility] Neutrophil percentageOrdered By: Rodrigue Saldaña on 11-10-2024 Neutrophils/100 WBC (Bld) 54.6 % 47-70 [facility] Nucleated red blood cell per centageOrdered By: Rodrigue Saldaña on 11-10-2024 Nucleated RBC/100 WBC (Bld) [Ratio] 0 % 0-5 [facility] Platelet countOrdered By: Dwayne Saldaña on 11-10-2024 Platelets (Bld) [#/Vol] 171 10*3/uL 150-450 [facility] RBC Auto (Bld) [#/Vol]Ordere d By: Rodrigue Saldaña on 11-10-2024 RBC (Bld) [#/Vol] 4.25 10*6/uL 4.2-5.4 [facility] Serum creatinine measurement (mass/volume)Ordered By: Rodrigue Saldaña on 11-10-2024 Creatinine [Mass/Vol] 1.40 mg/dL High 0.70-1.20 [facility] Serum glucose measurement (m ass/volume)Ordered By: Rodrigue Saldaña on 11-10-2024 Glucose [Mass/Vol] 99 mg/dL 70-99 [facility] Serum or plasma anion gap de termination (moles/volume)Ordered By: Rodrigue Saldaña on 11-10-2024 Anion gap [Moles/Vol] 14 mmol/L 5-15 [facility] Serum or plasma calcium murali urement (mass/volume)Ordered By: Rodrigue Saldaña on 11-10-2024 Calcium [Mass/Vol] 9.1 mg/dL 7.6-11.0 [facility] Serum or plasma potassium me asurementOrdered By: Rodrigue Saldaña on 11-10-2024 Potassium [Moles/Vol] 4.5 mmol/L 3.3-5.1 [facility] Serum or plasma sodium measu rement (moles/volume)Ordered By: Rodrigue Saldaña on 11-10-2024 Sodium [Moles/Vol] 142 mmol/L 133-145 [facility] Serum or plasma urea nitroge n measurement (mass/volume)Ordered By: Rodrigue Saldaña on 11-10-2024 Urea nitrogen [Mass/Vol] 46 mg/dL High 4-19 [facility] White blood cell (WBC) count Ordered By: Rodrigue Saldaña on 11-10-2024 WBC (Bld) [#/Vol] 6.5 10*3/uL 4.4-11.0 [facility] BUN/creatinine ratioOrdered By: Regine Morales on 11-05-2024 Urea nitrogen/Creatinine [Mass ratio] 35.1 mg/mg High 10-20 [facility] Carbon dioxide measurementOr dered By: Regine Morales on 11-05-2024 CO2 [Moles/Vol] 20.5 mmol/L Low 22.0-29.0 [facility] Chloride measurementOrdered By: Regine Morales on 11-05-2024 Chloride [Moles/Vol] 103 mmol/L 96-108 [facility] Creatinine [Moles/Vol]Ordere d By: Regine Morales on 11-05-2024 Creatinine [Mass/Vol] 1.5 mg/dL High 0.6-1.0 [facility] GFR/1.73 sq M.predicted benita g non-blacks MDRD (S/P/Bld) [Vol rate/Area]Ordered By: Regine Morales on 11-05-2024 Estimated GFR (MDRD) Non-Af Amer 35 Low >60 [facility] Comment on above: mL/min/1.73m2 CKD-EP I Creatinine Equation (2020) Glomerular filtration rate ( GFR) estimation/1.73 sq m using serum, plasma, or whole bOrdered By: Regine Morales on 11-05-2024 GFR/1.73 sq M.predicted among non-blacks MDRD (S/P/Bld) [Vol rate/Area] 35 mL/min/{1.73_m2} Low >60 [facility] Comment on above: mL/min/1.73m2 CKD-EP I Creatinine Equation (2020) Serum glucose measurement (m ass/volume)Ordered By: Regine Morales on 11-05-2024 Glucose [Mass/Vol] 91 mg/dL 70-99 [facility] Serum or plasma anion gap de termination (moles/volume)Ordered By: Regine Morales on 11-05-2024 Anion gap [Moles/Vol] 17 mmol/L High 5-15 [facility] Serum or plasma calcium murali urement (mass/volume)Ordered By: Regine Morales on 11-05-2024 Calcium [Mass/Vol] 9.3 mg/dL 7.6-11.0 [facility] Serum or plasma creatinine m easurement (moles/volume)Ordered By: Regine Morales on 11-05-2024 Creatinine [Moles/Vol] 1.5 mg/dL High 0.6-1.0 [facility] Serum or plasma potassium me asurementOrdered By: Regine Morales on 11-05-2024 Potassium [Moles/Vol] 4.7 mmol/L 3.3-5.1 [facility] Serum or plasma sodium measu rement (moles/volume)Ordered By: Regine Morales on 11-05-2024 Sodium [Moles/Vol] 140 mmol/L 133-145 [facility] Serum or plasma urea nitroge n measurement (mass/volume)Ordered By: Regine Morales on 11-05-2024 Urea nitrogen [Mass/Vol] 52 mg/dL High 4-19 [facility] Blood urea nitrogen (BUN)/cr eatinine ratioOrdered By: Rodrigue Saldaña on 10-22-2024 Urea nitrogen/Creatinine [Mass ratio] 39.8 mg/mg High 10-20 [facility] Carbon dioxide measurementOr dered By: Rodrigue Saldaña on 10-22-2024 CO2 [Moles/Vol] 21.0 mmol/L 21.0-32.0 [facility] Chloride measurementOrdered By: Rodrigue Saldaña on 10-22-2024 Chloride [Moles/Vol] 109 mmol/L High 98-107 [facility] Estimated glomerular filtrat ion rate (GFR) AmericanOrdered By: Rodrigue Saldaña on 10-22-2024 Estimated GFR (MDRD) Amer 39 mL/min Low >60 [facility] Comment on above: GFR Calc Glomerular filtration rate ( GFR) estimationOrdered By: Rodrigue Saldaña on 10-22-2024 Estimated GFR (MDRD) Non-Af Amer 32 mL/min Low >60 [facility] Comment on above: Non- GFR Calc GFR/1.73 sq M.predicted among non-blacks MDRD (S/P/Bld) [Vol rate/Area] 32 mL/min/{1.73_m2} Low >60 [facility] Comment on above: Non- GFR Calc Glucose measurementOrdered B y: Rodrigue Saldaña on 10-22-2024 Glucose [Mass/Vol] 100 mg/dL 74-106 [facility] Comment on above: Fasting Glucose resu lt from 100 to 125 mg/dL suggests IMPAIRED HOMEOSTASIS per A.D.A. criteria. Potassium measurementOrdered By: Rodrigue Saldaña on 10-22-2024 Potassium [Moles/Vol] 4.4 mmol/L 3.5-5.1 [facility] Serum anion gap measurementO rdered By: Rodrigue Saldaña on 10-22-2024 Anion gap [Moles/Vol] 10 mmol/L 5-15 [facility] Serum or plasma calcium murali urement (mass/volume)Ordered By: Rodrigue Saldaña on 10-22-2024 Calcium [Mass/Vol] 9.2 mg/dL 8.5-10.1 [facility] Serum or plasma creatinine m easurement (mass/volume)Ordered By: Rodrigue Saldaña on 10-22-2024 Creatinine [Mass/Vol] 1.61 mg/dL High 0.55-1.02 [facility] Comment on above: The validity of the calculated GFR & GFRAA in patients over 70 years has not been determined. Clinical correlation is essential. Serum or plasma urea nitroge n measurement (mass/volume)Ordered By: Rodrigue Saldaña on 10-22-2024 Urea nitrogen [Mass/Vol] 64 mg/dL High 7-18 [facility] Sodium levelOrdered By: Tea Saldaña on 10-22-2024 Sodium [Moles/Vol] 140 mmol/L 136-145 [facility] High density lipoprotein (HD L) measurementOrdered By: Rodrigue Saldaña on 10-20-2024 Cholesterol in HDL [Mass/Vol] 49 mg/dL >40 [facility] Comment on above: The drugs N-Acetylcy steine and Metamizole may falsely depress this assay. Reference Range HDL <40 mg/dL Low HDL Cholesterol HDL >or= 60 mg/dL High HDL Cholesterol Low density lipoprotein (LDL ) cholesterol measurementOrdered By: Rodrigue Saldaña on 10-20-2024 Cholesterol in LDL [Mass/Vol] 84 mg/dL 0-130 [facility] Serum or plasma cholesterol measurement (mass/volume)Ordered By: Rodrigue Saldaña on 10-20-2024 Cholesterol [Mass/Vol] 162 mg/dL <200 [facility] Comment on above: <200 mg/dL Desirable 200-240 mg/dL Borderline >240 mg/dL High Risk Triglycerides measurementOrd ered By: Rodrigue Saldaña on 10-20-2024 Triglyceride [Mass/Vol] 147 mg/dL <199 [facility] Comment on above: The drugs N-Acetylcy steine and Metamizole may falsely depress this assay.Serum Triglycerides Reference Interval Normal <150 mg/dL Borderline high 150 - 199 mg/dL High 200 - 499 mg/dL Very High > or = 500 mg/dL Very low density lipoprotein (VLDL) cholesterol measurementOrdered By: Rodrigue Saldaña on 10-20-2024 Very low density lipoprotein (VLDL) cholesterol measurement 29 mg/dL 5-40 [facility] VLDL Cholesterol 29 mg/dL 5-40 [facility] Vitamin B12 measurementOrder ed By: Rodrigue Saldaña on 10-20-2024 Cobalamin (Vitamin B12) [Mass/Vol] 416 pg/mL 211-911 [facility] Absolute lymphocyte countOrd ered By: Rodrigue Saldaña on 10-13-2024 Lymphocytes Auto (Unsp spec) [#/Vol] 1.93 10*3/uL 0.83-4.51 [facility] Absolute neutrophil countOrd ered By: Rodrigue Saldaña on 10-13-2024 Neutrophils (Bld) [#/Vol] 2.8 10*3/uL 2.0-7.7 [facility] Automated lymphocyte count a s percentage of total leukocytesOrdered By: Rodrigue Saldaña on 10-13-2024 Lymphocytes/100 WBC Auto (Unsp spec) 31.3 % 19-41 [facility] Basophil percentageOrdered B y: Rodrigue Saldaña on 10-13-2024 Basophils/100 WBC (Bld) 0.8 % 0-1 [facility] Blood urea nitrogen (BUN)/cr eatinine ratioOrdered By: Teasagamore beachmaryann Saldaña on 10-13-2024 Urea nitrogen/Creatinine [Mass ratio] 32.4 mg/mg High 10-20 [facility] Carbon dioxide measurementOr dered By: naveed Saldaña on 10-13-2024 CO2 [Moles/Vol] 22.0 mmol/L 21.0-32.0 [facility] Chloride measurementOrdered By: Rodrigue Saldaña on 10-13-2024 Chloride [Moles/Vol] 109 mmol/L High 98-107 [facility] Eosinophil percentageOrdered By: naveed Saldaña on 10-13-2024 Eosinophils/100 WBC (Bld) 11.4 % High 0-5 [facility] Erythrocyte distribution wid th (RBC) [Ratio]Ordered By: Rodrigue Saldaña on 10-13-2024 Erythrocyte distribution width (RBC) [Entitic vol] 55.2 fL High 35.1-43.9 [facility] Erythrocyte distribution wid th ratioOrdered By: Rodrigue Saldaña on 10-13-2024 Erythrocyte distribution width (RBC) [Ratio] 16.3 % High 11.6-14.6 [facility] Erythrocyte distribution wid th standard deviationOrdered By: jessicasagamore beachmaryann Saldaña on 10-13-2024 Erythrocyte distribution width (RBC) [Ratio] 55.2 fl High 35.1-43.9 [facility] Estimated glomerular filtrat ion rate (GFR) AmericanOrdered By: Rodrigue Saldaña on 10-13-2024 Estimated GFR (MDRD) Amer 43 mL/min Low >60 [facility] Comment on above: GFR Calc Glomerular filtration rate ( GFR) estimationOrdered By: Rodrigue Saldaña on 10-13-2024 Estimated GFR (MDRD) Non-Af Amer 36 mL/min Low >60 [facility] Comment on above: Non- GFR Calc GFR/1.73 sq M.predicted among non-blacks MDRD (S/P/Bld) [Vol rate/Area] 36 mL/min/{1.73_m2} Low >60 [facility] Comment on above: Non- GFR Calc Glucose measurementOrdered B y: Rodrigue Saldaña on 10-13-2024 Glucose [Mass/Vol] 89 mg/dL 74-106 [facility] Hematocrit Auto (Bld) [Volum e fraction]Ordered By: [facility] Yadavaaron on 10-13-2024 Hematocrit (Bld) [Volume fraction] 37.4 % 37-47 [facility] Hemoglobin measurementOrdere d By: [facility] Yadavaaron on 10-13-2024 Hemoglobin (Bld) [Mass/Vol] 11.8 g/dL Low 12.0-15.0 [facility] Immature granulocytes/100 WB C Auto (Bld)Ordered By: [facility] Yadavaaron on 10-13-2024 Immature granulocytes/100 WBC (Bld) 0.200 % 0.0-0.9 [facility] Comment on above: IG% - Immature Granu locytes (promyelocytes, myelocytes and metamyelocytes) > 1% indicates that a LEFT SHIFT is Present. Lymphocytes Auto (Unsp spec) [#/Vol]Ordered By: jessicasagamore beachmaryann Yadavaaron on 10-13-2024 Lymphocytes (Bld) [#/Vol] 1.93 10*3/uL 0.83-4.51 [facility] Lymphocytes/100 WBC Auto (Un sp spec)Ordered By: [facility] Yadavaaron on 10-13-2024 Lymphocytes/100 WBC (Bld) 31.3 % 19-41 [facility] MCV (mean corpuscular volume ) determinationOrdered By: jessicasagamore beachmaryann Yadavaaron on 10-13-2024 MCV (RBC) [Entitic vol] 91.2 fL 81-99 [facility] Mean corpuscular hemoglobin (MCH) determinationOrdered By: Rodrigue Saldaña on 10-13-2024 MCH (RBC) [Entitic mass] 28.8 pg 27.0-32.0 [facility] Mean corpuscular hemoglobin concentration (MCHC) determinationOrdered By: Rodrigue Saldaña on 10-13-2024 MCHC (RBC) [Mass/Vol] 31.6 g/dL Low 32-36 [facility] Mean platelet volume determi nationOrdered By: Rodrigue Saldaña on 10-13-2024 Platelet mean volume (Bld) [Entitic vol] 10.5 fL 6.2-12.0 [facility] Monocyte percentageOrdered B y: Rodrigue Saldaña on 10-13-2024 Monocytes/100 WBC (Bld) 10.2 % High 0-10 [facility] Neutrophil percentageOrdered By: Rodrigue Saldaña on 10-13-2024 Neutrophils/100 WBC (Bld) 46.1 % Low 47-70 [facility] Nucleated red blood cell per centageOrdered By: Rodrigue Saldaña on 10-13-2024 Nucleated RBC/100 WBC (Bld) [Ratio] 0 % 0-5 [facility] Platelet countOrdered By: Dwayne Saldaña on 10-13-2024 Platelets (Bld) [#/Vol] 169 10*3/uL 150-450 [facility] Potassium measurementOrdered By: Rodrigue Saldaña on 10-13-2024 Potassium [Moles/Vol] 4.6 mmol/L 3.5-5.1 [facility] RBC Auto (Bld) [#/Vol]Ordere d By: Rodrigue Saldaña on 10-13-2024 RBC (Bld) [#/Vol] 4.10 10*6/uL Low 4.2-5.4 [facility] Serum anion gap measurementO rdered By: Rodrigue Saldaña on 10-13-2024 Anion gap [Moles/Vol] 10 mmol/L 5-15 [facility] Serum or plasma calcium murali urement (mass/volume)Ordered By: Rodrigue Saldaña on 10-13-2024 Calcium [Mass/Vol] 8.9 mg/dL 8.5-10.1 [facility] Serum or plasma creatinine m easurement (mass/volume)Ordered By: Rodrigue Saldaña on 10-13-2024 Creatinine [Mass/Vol] 1.48 mg/dL High 0.55-1.02 [facility] Comment on above: The validity of the calculated GFR & GFRAA in patients over 70 years has not been determined. Clinical correlation is essential. Serum or plasma urea nitroge n measurement (mass/volume)Ordered By: Rodrigue Saldaña on 10-13-2024 Urea nitrogen [Mass/Vol] 48 mg/dL High 7-18 [facility] Sodium levelOrdered By: Tea Saldaña on 10-13-2024 Sodium [Moles/Vol] 141 mmol/L 136-145 [facility] White blood cell (WBC) count Ordered By: Rodrigue Saldaña on 10-13-2024 WBC (Bld) [#/Vol] 6.2 10*3/uL 4.4-11.0 [facility] Blood urea nitrogen (BUN)/cr eatinine ratioOrdered By: Rodrigue Saldaña on 10-08-2024 Urea nitrogen/Creatinine [Mass ratio] 30.3 mg/mg High 10-20 [facility] Carbon dioxide measurementOr dered By: Rodrigue Saldaña on 10-08-2024 CO2 [Moles/Vol] 24.0 mmol/L 21.0-32.0 [facility] Chloride measurementOrdered By: Rodrigue Saldaña on 10-08-2024 Chloride [Moles/Vol] 106 mmol/L 98-107 [facility] Estimated glomerular filtrat ion rate (GFR) AmericanOrdered By: Rodrigue Saldaña on 10-08-2024 Estimated GFR (MDRD) Amer 44 mL/min Low >60 [facility] Comment on above: GFR Calc Glomerular filtration rate ( GFR) estimationOrdered By: Rodrigue Saldaña on 10-08-2024 Estimated GFR (MDRD) Non-Af Amer 37 mL/min Low >60 [facility] Comment on above: Non- GFR Calc GFR/1.73 sq M.predicted among non-blacks MDRD (S/P/Bld) [Vol rate/Area] 37 mL/min/{1.73_m2} Low >60 [facility] Comment on above: Non- GFR Calc Glucose measurementOrdered B y: Rodrigue Saldaña on 10-08-2024 Glucose [Mass/Vol] 107 mg/dL High 74-106 [facility] Comment on above: Fasting Glucose resu lt from 100 to 125 mg/dL suggests IMPAIRED HOMEOSTASIS per A.D.A. criteria. Potassium measurementOrdered By: Rodrigue Saldaña on 10-08-2024 Potassium [Moles/Vol] 4.0 mmol/L 3.5-5.1 [facility] Serum anion gap measurementO rdered By: Rodrigue Saldaña on 10-08-2024 Anion gap [Moles/Vol] 9 mmol/L 5-15 [facility] Serum or plasma calcium murali urement (mass/volume)Ordered By: Rodrigue Saldaña on 10-08-2024 Calcium [Mass/Vol] 9.1 mg/dL 8.5-10.1 [facility] Serum or plasma creatinine m easurement (mass/volume)Ordered By: Rodrigue Saldaña on 10-08-2024 Creatinine [Mass/Vol] 1.45 mg/dL High 0.55-1.02 [facility] Comment on above: The validity of the calculated GFR & GFRAA in patients over 70 years has not been determined. Clinical correlation is essential. Serum or plasma urea nitroge n measurement (mass/volume)Ordered By: Rodrigue Saldaña on 10-08-2024 Urea nitrogen [Mass/Vol] 44 mg/dL High 7-18 [facility] Sodium levelOrdered By: Tea Saldaña on 10-08-2024 Sodium [Moles/Vol] 139 mmol/L 136-145 [facility] Blood urea nitrogen (BUN)/cr eatinine ratioOrdered By: Rodrigue Saldaña on 09-24-2024 Urea nitrogen/Creatinine [Mass ratio] 26.7 mg/mg High 10-20 [facility] Carbon dioxide measurementOr dered By: Rodrigue Saldaña on 09-24-2024 CO2 [Moles/Vol] 25.0 mmol/L 21.0-32.0 [facility] Chloride measurementOrdered By: Rodrigue Saldaña on 09-24-2024 Chloride [Moles/Vol] 105 mmol/L 98-107 [facility] Estimated glomerular filtrat ion rate (GFR) AmericanOrdered By: Rodrigue Saldaña on 09-24-2024 Estimated GFR (MDRD) Amer 44 mL/min Low >60 [facility] Comment on above: GFR Calc Glomerular filtration rate ( GFR) estimationOrdered By: Rodrigue Saldaña on 09-24-2024 Estimated GFR (MDRD) Non-Af Amer 36 mL/min Low >60 [facility] Comment on above: Non- GFR Calc GFR/1.73 sq M.predicted among non-blacks MDRD (S/P/Bld) [Vol rate/Area] 36 mL/min/{1.73_m2} Low >60 [facility] Comment on above: Non- GFR Calc Glucose measurementOrdered B y: Rodrigue aSldaña on 09-24-2024 Glucose [Mass/Vol] 101 mg/dL 74-106 [facility] Comment on above: Fasting Glucose resu lt from 100 to 125 mg/dL suggests IMPAIRED HOMEOSTASIS per A.D.A. criteria. Potassium measurementOrdered By: Rodrigue Saldaña on 09-24-2024 Potassium [Moles/Vol] 4.0 mmol/L 3.5-5.1 [facility] Serum anion gap measurementO rdered By: Rodrigue Saldaña on 09-24-2024 Anion gap [Moles/Vol] 8 mmol/L 5-15 [facility] Serum or plasma calcium murali urement (mass/volume)Ordered By: Rodrigue Saldaña on 09-24-2024 Calcium [Mass/Vol] 8.8 mg/dL 8.5-10.1 [facility] Serum or plasma creatinine m easurement (mass/volume)Ordered By: Rodrigue Saldaña on 09-24-2024 Creatinine [Mass/Vol] 1.46 mg/dL High 0.55-1.02 [facility] Comment on above: The validity of the calculated GFR & GFRAA in patients over 70 years has not been determined. Clinical correlation is essential. Serum or plasma urea nitroge n measurement (mass/volume)Ordered By: Rodrigue Saldaña on 09-24-2024 Urea nitrogen [Mass/Vol] 39 mg/dL High 7-18 [facility] Sodium levelOrdered By: Tea Saldaña on 09-24-2024 Sodium [Moles/Vol] 138 mmol/L 136-145 [facility] Absolute neutrophil countOrd ered By: naveed Saldaña on 09-15-2024 Neutrophils (Bld) [#/Vol] 5.1 10*3/uL 2.0-7.7 [facility] Basophil percentageOrdered B y: Rodrigue Saldaña on 09-15-2024 Basophils/100 WBC (Bld) 0.8 % 0-1 [facility] Blood urea nitrogen (BUN)/cr eatinine ratioOrdered By: Rodrigue Saldaña on 09-15-2024 Urea nitrogen/Creatinine [Mass ratio] 30.7 mg/mg High 10-20 [facility] Carbon dioxide measurementOr dered By: Rodrigue Saldaña on 09-15-2024 CO2 [Moles/Vol] 21.0 mmol/L 21.0-32.0 [facility] Chloride measurementOrdered By: Rodrigue Saldaña on 09-15-2024 Chloride [Moles/Vol] 108 mmol/L High 98-107 [facility] Eosinophil percentageOrdered By: Rodrigue Saldaña on 09-15-2024 Eosinophils/100 WBC (Bld) 5.1 % High 0-5 [facility] Erythrocyte distribution wid th (RBC) [Ratio]Ordered By: Rodrigue Saldaña on 09-15-2024 Erythrocyte distribution width (RBC) [Entitic vol] 53.6 fL High 35.1-43.9 [facility] Erythrocyte distribution wid th ratioOrdered By: [facility] Salda[facility] on 09-15-2024 Erythrocyte distribution width (RBC) [Ratio] 16.4 % High 11.6-14.6 [facility] Estimated glomerular filtrat ion rate (GFR) AmericanOrdered By: Rodrigue Saldaña on 09-15-2024 Estimated GFR (MDRD) Amer 42 mL/min Low >60 [facility] Comment on above: GFR Calc Glomerular filtration rate ( GFR) estimationOrdered By: Rodrigue Saldaña on 09-15-2024 Estimated GFR (MDRD) Non-Af Amer 34 mL/min Low >60 [facility] Comment on above: Non- GFR Calc Glucose measurementOrdered B y: Rodrigue Saldaña on 09-15-2024 Glucose [Mass/Vol] 84 mg/dL 74-106 [facility] Hematocrit Auto (Bld) [Volum e fraction]Ordered By: Rodrigue Saldaña on 09-15-2024 Hematocrit (Bld) [Volume fraction] 37.5 % 37-47 [facility] Hemoglobin measurementOrdere d By: Rodrigue Saldaña on 09-15-2024 Hemoglobin (Bld) [Mass/Vol] 11.7 g/dL Low 12.0-15.0 [facility] Immature granulocytes/100 WB C Auto (Bld)Ordered By: naveed Saldaña on 09-15-2024 Immature granulocytes/100 WBC (Bld) 0.500 % 0.0-0.9 [facility] Comment on above: IG% - Immature Granu locytes (promyelocytes, myelocytes and metamyelocytes) > 1% indicates that a LEFT SHIFT is Present. Lymphocytes Auto (Unsp spec) [#/Vol]Ordered By: Rodrigue Saldaña on 09-15-2024 Lymphocytes (Bld) [#/Vol] 1.95 10*3/uL 0.83-4.51 [facility] Lymphocytes/100 WBC Auto (Un sp spec)Ordered By: Rodrigue Saldaña on 09-15-2024 Lymphocytes/100 WBC (Bld) 23.5 % 19-41 [facility] MCV (mean corpuscular volume ) determinationOrdered By: Rodrigue Saldaña on 09-15-2024 MCV (RBC) [Entitic vol] 90.1 fL 81-99 [facility] Mean corpuscular hemoglobin (MCH) determinationOrdered By: Rodrigue Saldaña on 09-15-2024 MCH (RBC) [Entitic mass] 28.1 pg 27.0-32.0 [facility] Mean corpuscular hemoglobin concentration (MCHC) determinationOrdered By: Rodrigue Saldaña on 09-15-2024 MCHC (RBC) [Mass/Vol] 31.2 g/dL Low 32-36 [facility] Mean platelet volume determi nationOrdered By: Rodrigue Saldaña on 09-15-2024 Platelet mean volume (Bld) [Entitic vol] 10.4 fL 6.2-12.0 [facility] Monocyte percentageOrdered B y: Rodrigue Saldaña on 09-15-2024 Monocytes/100 WBC (Bld) 8.7 % 0-10 [facility] Neutrophil percentageOrdered By: Rodrigue Saldaña on 09-15-2024 Neutrophils/100 WBC (Bld) 61.4 % 47-70 [facility] Nucleated red blood cell per centageOrdered By: Rodrigue Saldaña on 09-15-2024 Nucleated RBC/100 WBC (Bld) [Ratio] 0 % 0-5 [facility] Platelet countOrdered By: Dwayne Saldaña on 09-15-2024 Platelets (Bld) [#/Vol] 225 10*3/uL 150-450 [facility] Potassium measurementOrdered By: Rodrigue Saldaña on 09-15-2024 Potassium [Moles/Vol] 4.8 mmol/L 3.5-5.1 [facility] RBC Auto (Bld) [#/Vol]Ordere d By: Rodrigue Saldaña on 09-15-2024 RBC (Bld) [#/Vol] 4.16 10*6/uL Low 4.2-5.4 [facility] Serum anion gap measurementO rdered By: Rodrigue Saldaña on 09-15-2024 Anion gap [Moles/Vol] 9 mmol/L 5-15 [facility] Serum or plasma calcium murali urement (mass/volume)Ordered By: Rodrigue Saldaña on 09-15-2024 Calcium [Mass/Vol] 8.9 mg/dL 8.5-10.1 [facility] Serum or plasma creatinine m easurement (mass/volume)Ordered By: Rodrigue Saldaña on 09-15-2024 Creatinine [Mass/Vol] 1.53 mg/dL High 0.55-1.02 [facility] Comment on above: The validity of the calculated GFR & GFRAA in patients over 70 years has not been determined. Clinical correlation is essential. Serum or plasma urea nitroge n measurement (mass/volume)Ordered By: Rodrigue Saldaña on 09-15-2024 Urea nitrogen [Mass/Vol] 47 mg/dL High 7-18 [facility] Sodium levelOrdered By: Tea Saldaña on 09-15-2024 Sodium [Moles/Vol] 138 mmol/L 136-145 [facility] White blood cell (WBC) count Ordered By: Rodrigue Saldaña on 09-15-2024 WBC (Bld) [#/Vol] 8.3 10*3/uL 4.4-11.0 [facility] Blood urea nitrogen (BUN)/cr eatinine ratioOrdered By: Rodrgiue Saldaña on 08-27-2024 Urea nitrogen/Creatinine [Mass ratio] 25.7 mg/mg High 10-20 [facility] Carbon dioxide measurementOr dered By: Rodrigue Saldaña on 08-27-2024 CO2 [Moles/Vol] 26.0 mmol/L 21.0-32.0 [facility] Chloride measurementOrdered By: Rodrigue Saldaña on 08-27-2024 Chloride [Moles/Vol] 106 mmol/L 98-107 [facility] Estimated glomerular filtrat ion rate (GFR) AmericanOrdered By: Rodrigue Saldaña on 08-27-2024 Estimated GFR (MDRD) Amer 45 mL/min Low >60 [facility] Comment on above: GFR Calc Glomerular filtration rate ( GFR) estimationOrdered By: Rodrigue Saldaña on 08-27-2024 Estimated GFR (MDRD) Non-Af Amer 37 mL/min Low >60 [facility] Comment on above: Non- GFR Calc Glucose measurementOrdered B y: Rodrigue Saldaña on 08-27-2024 Glucose [Mass/Vol] 99 mg/dL 74-106 [facility] Potassium measurementOrdered By: Rodrigue Saldaña on 08-27-2024 Potassium [Moles/Vol] 4.1 mmol/L 3.5-5.1 [facility] Serum anion gap measurementO rdered By: Rodrigue Saldaña on 08-27-2024 Anion gap [Moles/Vol] 7 mmol/L 5-15 [facility] Serum or plasma calcium murali urement (mass/volume)Ordered By: Rodrigue Saldaña on 08-27-2024 Calcium [Mass/Vol] 8.8 mg/dL 8.5-10.1 [facility] Serum or plasma creatinine m easurement (mass/volume)Ordered By: Rodrigue Saldaña on 08-27-2024 Creatinine [Mass/Vol] 1.44 mg/dL High 0.55-1.02 [facility] Comment on above: The validity of the calculated GFR & GFRAA in patients over 70 years has not been determined. Clinical correlation is essential. Serum or plasma urea nitroge n measurement (mass/volume)Ordered By: Rodrigue Saldaña on 08-27-2024 Urea nitrogen [Mass/Vol] 37 mg/dL High 03-27 [facility] Sodium levelOrdered By: Tea skaggscristóbalaaron Saldaña on 08-27-2024 Sodium [Moles/Vol] 140 mmol/L 136-145 [facility] Absolute neutrophil countOrd ered By: Rodrigue Saldaña on 08-18-2024 Neutrophils (Bld) [#/Vol] 3.4 10*3/uL 2.0-7.7 [facility] Basophil percentageOrdered B y: Rodrigue Saldaña on 08-18-2024 Basophils/100 WBC (Bld) 0.8 % 0-1 [facility] Blood urea nitrogen (BUN)/cr eatinine ratioOrdered By: Rodrigue Saldaña on 08-18-2024 Urea nitrogen/Creatinine [Mass ratio] 29.6 mg/mg High 06-29 [facility] Carbon dioxide measurementOr dered By: Rodrigue Saldaña on 08-18-2024 CO2 [Moles/Vol] 24.0 mmol/L 21.0-32.0 [facility] Chloride measurementOrdered By: Rodrigue Saldaña on 08-18-2024 Chloride [Moles/Vol] 110 mmol/L High 98-107 [facility] Eosinophil percentageOrdered By: Rodrigue Saldaña on 08-18-2024 Eosinophils/100 WBC (Bld) 6.2 % High 0-5 [facility] Erythrocyte distribution wid th (RBC) [Ratio]Ordered By: Rodrigue Saldaña on 08-18-2024 Erythrocyte distribution width (RBC) [Entitic vol] 52.5 fL High 35.1-43.9 [facility] Erythrocyte distribution wid th ratioOrdered By: Rodrigue Saldaña on 08-18-2024 Erythrocyte distribution width (RBC) [Ratio] 16.1 % High 11.6-14.6 [facility] Estimated glomerular filtrat ion rate (GFR) AmericanOrdered By: Rodrigue Saldaña on 08-18-2024 Estimated GFR (MDRD) Amer 53 mL/min Low >60 [facility] Comment on above: GFR Calc Glomerular filtration rate ( GFR) estimationOrdered By: Rodrigue Saldaña on 08-18-2024 Estimated GFR (MDRD) Non-Af Amer 43 mL/min Low >60 [facility] Comment on above: Non- GFR Calc Glucose measurementOrdered B y: Rodrigue Saldaña on 08-18-2024 Glucose [Mass/Vol] 86 mg/dL 74-106 [facility] Hematocrit Auto (Bld) [Volum e fraction]Ordered By: Rodrigue Saldaña on 08-18-2024 Hematocrit (Bld) [Volume fraction] 40.1 % 37-47 [facility] Hemoglobin measurementOrdere d By: Rodrigue Saldaña on 08-18-2024 Hemoglobin (Bld) [Mass/Vol] 12.5 g/dL 12.0-15.0 [facility] Immature granulocytes/100 WB C Auto (Bld)Ordered By: Rodrigue Saldaña on 08-18-2024 Immature granulocytes/100 WBC (Bld) 0.300 % 0.0-0.9 [facility] Comment on above: IG% - Immature Granu locytes (promyelocytes, myelocytes and metamyelocytes) > 1% indicates that a LEFT SHIFT is Present. Lymphocytes Auto (Unsp spec) [#/Vol]Ordered By: Rodrigue Saldaña on 08-18-2024 Lymphocytes (Bld) [#/Vol] 1.70 10*3/uL 0.83-4.51 [facility] Lymphocytes/100 WBC Auto (Un sp spec)Ordered By: Rodrigue Sadlaña on 08-18-2024 Lymphocytes/100 WBC (Bld) 27.7 % 19-41 [facility] MCV (mean corpuscular volume ) determinationOrdered By: Rodrigue Saldaña on 08-18-2024 MCV (RBC) [Entitic vol] 90.5 fL 81-99 [facility] Mean corpuscular hemoglobin (MCH) determinationOrdered By: Rodrigue Saldaña on 08-18-2024 MCH (RBC) [Entitic mass] 28.2 pg 27.0-32.0 [facility] Mean corpuscular hemoglobin concentration (MCHC) determinationOrdered By: Rodrigue Saldaña on 08-18-2024 MCHC (RBC) [Mass/Vol] 31.2 g/dL Low 32-36 [facility] Mean platelet volume determi nationOrdered By: Rodrigue Saldaña on 08-18-2024 Platelet mean volume (Bld) [Entitic vol] 10.4 fL 6.2-12.0 [facility] Monocyte percentageOrdered B y: Rodrigue Saldaña on 08-18-2024 Monocytes/100 WBC (Bld) 9.0 % 0-10 [facility] Neutrophil percentageOrdered By: Rodrigue Saldaña on 08-18-2024 Neutrophils/100 WBC (Bld) 56.0 % 47-70 [facility] Nucleated red blood cell per centageOrdered By: Rodrigue Saldaña on 08-18-2024 Nucleated RBC/100 WBC (Bld) [Ratio] 0 % 0-5 [facility] Platelet countOrdered By: Dwayne dawnbe Leifkalina on 08-18-2024 Platelets (Bld) [#/Vol] 153 10*3/uL 150-450 [facility] Potassium measurementOrdered By: Rodrigue Saldaña on 08-18-2024 Potassium [Moles/Vol] 3.9 mmol/L 3.5-5.1 [facility] RBC Auto (Bld) [#/Vol]Ordere d By: Rodrigue Leifkalina on 08-18-2024 RBC (Bld) [#/Vol] 4.43 10*6/uL 4.2-5.4 [facility] Serum anion gap measurementO rdered By: Rodrigue Leifkalina on 08-18-2024 Anion gap [Moles/Vol] 8 mmol/L 5-15 [facility] Serum or plasma calcium murali urement (mass/volume)Ordered By: Dwaynejessicajarred Leifkalina on 08-18-2024 Calcium [Mass/Vol] 9.1 mg/dL 8.5-10.1 [facility] Serum or plasma creatinine m easurement (mass/volume)Ordered By: Dwaynejessicajarred Leifkalina on 08-18-2024 Creatinine [Mass/Vol] 1.25 mg/dL High 0.55-1.02 [facility] Comment on above: The validity of the calculated GFR & GFRAA in patients over 70 years has not been determined. Clinical correlation is essential. Serum or plasma urea nitroge n measurement (mass/volume)Ordered By: Dwaynenaveed Yadavkalina on 08-18-2024 Urea nitrogen [Mass/Vol] 37 mg/dL High 7-18 [facility] Sodium levelOrdered By: Tea stern Leifkalina on 08-18-2024 Sodium [Moles/Vol] 142 mmol/L 136-145 [facility] White blood cell (WBC) count Ordered By: Rodrigue Leifkalina on 08-18-2024 WBC (Bld) [#/Vol] 6.1 10*3/uL 4.4-11.0 [facility] Stress Reporton 07-31-2024 Stress Report [facility] [address] [place] [address] MR#: [id number] Acct: [id number] Name: YAA WARD Rep #: [id number] : 1940 84 From: Osvaldo Kuhn MD Primary Care: Dr. Rodrigue Saldaña MD Status: REG CLI Referring Dr: Osvaldo Kuhn MD Sex: F [...] of 66%. This note was generated with T1 Visionsation software. It may contain incorrect words, spelling, and punctuation that were not noted in checking the note before signing. 07/31/24 1233 Date Osvaldo Kuhn MD CC: Dr. Osvaldo Kuhn MD; Dr. Rodrigue Saldaña MD Date Dictated: 07/31/241230 Date Transcribed: 07/31/241230 Analytics Intern: SHAUNA Signed Normal [facility] CNCOon 04-24-2024 CNCO Letter Text Normal [facility] CNOVon 04-24-2024 CNOV Office Visit (GSTNOR ) YAA WARD ([id number]) 1940 F NFR Date Time Provider Department 04/24/24 11:20 AM DUC PAYAN GSTNOR During your visit today, we recorded the following information about you: Pulse Blood pressure Weight Height 64/minute 148/92 115.7 kg 1.575 m Duc Payan, TESTER ELECTRONIC SCALE.TRANSIT OPERATIONS SUPERVISOR 04/24/2024 12:25 PM Signed CHIEF COMPLAINT: Patient presents with: Garcia's Esophagus : Voice change Constipation: Bloating This consult was requested by No ref. provider found for an opinion regarding garcia's esophagus. My final recommendations will be communicated to the requesting health care provider by way of the shared medical record for internal providers or letter via the [employer] for external providers. HPI: Yaa [...] dysfunctional uterine bleeding Allergies: ALLERGIES Allergen Reactions Etxmtux-Tay-Ics Red* Other: See Comments Lethargic, and muscle [...] 1 tablet by mouth once daily. vit C,U-Wd-gfdlt-lutein-ayesha zack (PRESERVISION AREDS-2) 250-90-40-1 mg Take by [...] 12.5 m (more content not included)... Normal [facility] CNOVon 03-11-2024 CNOV Office Visit (FAMPTW ) YAA WARD ([id number]) 1940 F NFR Date Time Provider Department 03/11/24 10:20 AM DELISA ESTRELLA During your visit today, we recorded the following information about you: Pulse Blood pressure Weight Height 67/minute 117/64 115.7 kg 1.575 m Delisa Estrella, 03/16/2024 9:28 PM Signed Yaa Ward is a 83 year old female presenting for evaluation Patient is wishing to reestablish care-she recently moved to [facility] Last office visit with me was on 03/01/2021 Pt currently lives at an assisted living facility " [facility]" in [place] where she follows with a TRANSIT OPERATIONS SUPERVISOR and with PCP Dr Saldaña. I have [...] Dr Rojas. Previous PCP Dr Ragsdale (in [place]) retired 2 yrs ago New PCP Dr Saldaña at [facility]". States has only met the physician on time. Follows most of the time with NEERAJ Latham at [facility] Services: at her Assisted living facility - [...] Protonix 40 mg daily dose Since in [place] she has not seen a GI as advised that there is no GI provider in [place]. After discussion I did place a call and found closest GI provider in [facility] in [place] Phone number: [phone] Rosario Pt aware and will try to schedule an appt. Pt is aware that I did speak with nursing supervisore Saba at [facility]. DENIES: fever, chills, weight changes, night sweats, [...] Tobacco comments: (more content not included)... Normal [facility] Neda 03-11-2024 CNPN Telephone (FAMPTW) YAA WARD ([id number]) 1940 F NFR Date Time Provider Department 03/11/24 DELISA ESTRELLA FAMIVETTE During your visit today, we recorded the following information about you: Ariela Saenz 03/11/2024 10:12 AM Signed Saba with [facility] is calling Delisa Estrella DO today with concern regarding appointment today. Patient lives in a facility right now and the strategic sourcing manager of the facility is calling and [...] of symptoms: N/A Any questions, please call [phone] Closing statement: Results or non-symptom based questions: Thank you for calling [facility], your call will be returned within [...] As of Date: 03/11/2024 Noted Allergy Reaction [id number]-[id number]-JED REDUCTASE INHIBIT*01/23/2012 14 - Other: See Comments [...] tablet by mouth once daily. - vit C,R-Yt-ucrgl-lutein-ayesha zack (PRESERVISION AREDS-2) 250-90-40-1 mg Take by [...] 2,000 Units by mouth once daily. - Anthony-3 Fatty Acids-Vitamin E (FISH OIL) 1,000 mg [...] Cervical spondyl (more content not included)... Normal [facility] Neda 12-17-2023 NEERAJN Telephone (FAMPTW) YAA WARD ([id number]) 1940 F NFR Date Time Provider Department [...] calling: self Call patient at: at home [phone] (home) [phone] (cell) Was an appointment scheduled: No Closing statement: Results or non-symptom based questions: Thank you for calling [facility], your call will be returned within the next business day. Reena Benitez [facility] Mary Lou Vidales MA 12/17/2023 3:46 PM Signed Please see message below and advise. Kay Cummins 12/19/2023 12:[address] Estrella advised she would accept patient back to re-establish care. Tried to reach patient at both numbers listed in Epic. Was connected with [facility] and advised that we need to contact Ariadna at [phone], who handles all patient scheduling and transport. Called number above and was unable to leave message. Will follow up to offer patient appointment on 02/07/2024 at 12:[address] Estrella. Kay Cummins 12/20/2023 8:43 AM Signed Patient called back and is scheduled on 03/11/24. Allergies As of Date: 12/17/2023 Noted Allergy Reaction [id number]-QHS-RXL REDUCTASE INHIBIT*01/23/2012 14 - Other: See Comments [...] tablet by mouth once daily. - vit C,C-Yi-diiec-lutein-ayesha zack (PRESERVISION AREDS-2) 250-90-40-1 mg Take by [...] 2,000 Units by mouth once daily. - Anthony-3 Fatty Acids-Vitamin E (FISH OIL) 1,000 mg [...] 02/17/2021 Cervicalgia (more content not included)... Normal [facility] ANES POSTPROC EVALon 024 ANES POSTPROC EVAL HNO ID: [id number] Author: AMAN MCCALLUM MD Service: ? Author Type: Anesthesiologist Type: Anesthesia Postprocedure Evaluation Filed: 12/06/2023 11:16 Note Text: POST ANESTHESIA EVALUATION NOTE : 1940 Procedure Summary Date: 12/06/23 Room / Location: [place] [address] / [facility] Anesthesia Start: 821 Anesthesia Stop: 841 Procedures: [...] December 06, 2023 TIME: 11:16 AM CSN: [id number] Normal [facility] ANES PRE-OPon 12-06-2023 ANES PRE-OP HNO ID: [id number] Author: AMAN MCCALLUM MD Service: ? Author Type: Anesthesiologist Type: Anesthesia Preprocedure Evaluation Filed: 12/06/2023 08:12 Note Text: ANESTHESIOLOGY DAY OF SURGERY NOTE : 1940 Procedure Information Date/Time: 12/06/23 0845 Procedures: PHACOEMULSIFICATION CATARACT IMPLANT INTRAOCULAR LENS W/O ENDOSCOPIC CYCLOPHOTOCOAGULATION (Left: Eye) OPHTHALMIC BIOMETRY BY PARTIAL COHERENCE INTERFEROMETRY W/INTRAOCULAR LENS POWER CALCULATION (Left: Eye) Location: [place] [address] / [facility] Surgeons: Vinod Rojas MD Estimated [...] and consent discussed: yes. Patient / Responsible Alliance Party agrees to proceed: yes Patient / [...] tablet by mouth once daily. - vit C,L-Mp-tazlp-lutein-ayesha zack (PRESERVISION AREDS-2) 250-90-40-1 mg Take by [...] 2,000 Units by mouth once daily. - Anthony-3 Fatty Acids-Vitamin E (FISH OIL) 1,000 mg [...] December 06, 2023 TIME: 8:11 AM CSN: [id number] Normal [facility] OPERATIVE NOon 12-06-2023 OPERATIVE NO HNO ID: [id number] Author: VINOD ROJAS MD Service: Ophthalmology Author Type: Physician Type: Operative Report Filed: 12/06/2023 08:45 Note Text: [facility] OPERATIVE REPORT Log ID: [id number] Surgery/Procedure Date: 12/06/2023 Name: Yaa Ward [facility] #: [id number] Age: [age] year old Surgeon(s)/Proceduralis t(s) and Facility Maintenance Helper(s): Surgeon(s) and Role: * Vinod Rojas MD [...] Implant Name Type Inv. Item Serial No. Golf Ball Molder Lot No. LRB No. Used Action Model No. CCA0T0.225 [facility] [employer] - [id number] Intraocular Lens CCA0T0.225 [facility] [employer] [id number] [employer] Left 1 Implanted CCA0T0.225 [...] December 06, 2023 Time: 8:45 AM Normal [facility] Laboratory - Chemistry and C hemistry - challengeOrdered By: Rodrigue Saldaña on 12-05-2023 Cobalamin (Vitamin B12) [Mass/Vol] 1190 pg/mL 211-911 [facility] ANES POSTPROC EVALon 024 ANES POSTPROC EVAL HNO ID: [id number] Author: AMAN MCCLALUM MD Service: ? Author Type: Anesthesiologist Type: Anesthesia Postprocedure Evaluation Filed: 11/22/2023 14:45 Note Text: POST ANESTHESIA EVALUATION NOTE : 1940 Procedure Summary Date: 11/22/23 Room / Location: [address] Anesthesia Start: 1159 Anesthesia Stop: 1236 [...] with this procedure. Documented by Anders Krishnan APRN.LITHOGRAPHIC PROOFER APPRENTICE 11/22/2023 12:38 PM EDT SIGNATURE: Aman Mccallum MD PATIENT NAME: Yaa Ward DATE: November 22, 2023 TIME: 2:45 PM CSN: [id number] Normal [facility] ANES PRE-OPon 11-22-2023 ANES PRE-OP HNO ID: [id number] Author: AMAN MCCALLUM MD Service: ? Author Type: Anesthesiologist Type: Anesthesia Preprocedure Evaluation Filed: 11/22/2023 11:46 Note Text: ANESTHESIOLOGY DAY OF SURGERY NOTE : 1940 Procedure Information Date/Time: 11/22/23 1131 Procedures: PHACOEMULSIFICATION CATARACT IMPLANT INTRAOCULAR LENS W/O ENDOSCOPIC CYCLOPHOTOCOAGULATION (Right: Eye) OPHTHALMIC BIOMETRY BY PARTIAL COHERENCE INTERFEROMETRY W/INTRAOCULAR LENS POWER CALCULATION (Right: Eye) Location: [place] [address] / [facility] Surgeons: Vinod Rojas MD Estimated [...] and consent discussed: yes. Patient / Responsible Alliance Party agrees to proceed: yes Patient / [...] tablet by mouth once daily. - vit C,U-Fr-ihqzj-lutein-ayesha zack (PRESERVISION AREDS-2) 250-90-40-1 mg Take by [...] 1 tablet by mouth once daily. - Anthony-3 Fatty Acids-Vitamin E (FISH OIL) 1,000 mg [...] November 22, 2023 TIME: 11:46 AM CSN: [id number] Normal [facility] PRE-OP HNO ID: [id number] Author: AMAN MCCALLUM MD Service: ? Author Type: Anesthesiologist Type: Anesthesia Preprocedure Evaluation Filed: 11/22/2023 11:24 Note Text: ANESTHESIOLOGY DAY OF SURGERY NOTE : 1940 Procedure Information Date/Time: 11/22/23 1131 Procedures: PHACOEMULSIFICATION CATARACT IMPLANT INTRAOCULAR LENS W/O ENDOSCOPIC CYCLOPHOTOCOAGULATION (Right: Eye) OPHTHALMIC BIOMETRY BY PARTIAL COHERENCE INTERFEROMETRY W/INTRAOCULAR LENS POWER CALCULATION (Right: Eye) Location: [place] [address] / [facility] Surgeons: Vinod Rojas MD Estimated [...] and consent discussed: yes. Patient / Responsible Alliance Party agrees to proceed: yes Patient / [...] tablet by mouth once daily. - vit C,W-Nc-aorcb-lutein-ayesha zack (PRESERVISION AREDS-2) 250-90-40-1 mg Take by [...] 1 tablet by mouth once daily. - Anthony-3 Fatty Acids-Vitamin E (FISH OIL) 1,000 mg [...] November 22, 2023 TIME: 11:24 AM CSN: [id number] Normal [facility] OPERATIVE NOon 11-22-2023 OPERATIVE NO HNO ID: [id number] Author: VINOD ROJAS MD Service: Ophthalmology Author Type: Physician Type: Operative Report Filed: 11/22/2023 12:35 Note Text: [facility] OPERATIVE REPORT Log ID: [id number] Surgery/Procedure Date: 11/22/2023 Name: [facility] #: [id number] Age: [age] year old Surgeon(s)/Proceduralis t(s) and Facility Maintenance Helper(s): Surgeon(s) and Role: * Vinod Rojas MD - Primary * Mojtahed, Saam - Resident - Assisting Anesthesia: Monitored Anesthesia [...] Implant Name Type Inv. Item Serial No. Golf Ball Molder Lot No. LRB No. Used Action Model No. CCA0T0.225 [facility] [employer] - [id number] Intraocular Lens CCA0T0.225 [facility] [id number] [employer] Right 1 Implanted CCA0T0.225 [...] November 22, 2023 Time: 12:32 PM [facility] (OPHTBE) YAA WARD ([id number]) 1940 F NFR Date Time Provider Department 11/20/23 VINOD ROJAS OPHTBE During your visit today, we recorded the following information about you: Patience Lin 11/22/2023 9:33 AM Addendum [facility] where Pt resides asked that any RX or speical instruction and rX orders post op instructions to be faxed to them at [phone] to her floor which is [facility]: (To contact the nurse ph no is ) Allergies As of Date: 11/20/2023 Noted Allergy Reaction [id number]-KRF-RBF REDUCTASE INHIBIT*01/23/2012 14 - Other: See Comments [...] Reason for Visit: FORWARD ALL ORDERS TO [facility] [Other] Patient Update [1234] Prescriptions as of 11/28/2023 - hydroCHLOROthiazide 25 mg tablet Take 25 mg by mouth once daily. - pregabalin (LYRICA) 100 mg capsule Take 100 mg by mouth three times a day. - vibegron (GEMTESA) 75 mg tablet Take 1 tablet by mouth once daily. - vit C,V-Wx-eruxv-lutein-ayesha zack (PRESERVISION AREDS-2) 250-90-40-1 mg Take by [...] 2,000 Units by mouth once daily. - Anthony-3 Fatty Acids-Vitamin E (FISH OIL) 1,000 mg [...] Fatigu (more content not included)... Normal [facility]h Basophil percentageOrdered B y: Rodrigue Saldaña on 10-24-2023 Cholesterol [Mass/Vol] 151 mg/dL <200 [facility] Comment on above: <200 mg/dL Desirable 200-240 mg/dL Borderline >240 mg/dL High Risk Triglyceride [Mass/Vol] 92 mg/dL <199 [facility] Comment on above: The drugs N-Acetylcy steine and Metamizole may falsely depress this assay.Serum Triglycerides Reference Interval Normal <150 mg/dL Borderline high 150 - 199 mg/dL High 200 - 499 mg/dL Very High > or = 500 mg/dL Laboratory - Chemistry and C hemistry - challengeOrdered By: Rodrigue Saldaña on 10-24-2023 Cholesterol in HDL [Mass/Vol] 53 mg/dL >40 [facility] Comment on above: The drugs N-Acetylcy steine and Metamizole may falsely depress this assay. Reference Range HDL <40 mg/dL Low HDL Cholesterol HDL >or= 60 mg/dL High HDL Cholesterol Cholesterol in LDL [Mass/Vol] 80 mg/dL 0-130 [facility] No Panel InformationOrdered By: Rodrigue Saldaña on 10-24-2023 VLDL Cholesterol 18 mg/dL 5-40 [facility] CNPNon 10-12-2023 CNPN Telephone (OPHTBE) YAA WARD ([id number]) 1940 F NFR Date Time Provider Department 10/12/23 VINOD ROJAS During your visit today, we recorded the following information about you: Kelsey Garza 10/12/2023 11:08 AM Signed [facility] returned call to set up surgery. Please call again at [phone] [facility] Kelsey Justice 10/12/2023 5:03 PM Signed Taken care of. spoke to defense travel administrator. Allergies As of Date: 10/12/2023 Noted Allergy Reaction [id number]-NIV-CDO REDUCTASE INHIBIT*01/23/2012 14 - Other: See Comments [...] 2,000 Units by mouth once daily. - Anthony-3 Fatty Acids-Vitamin E (FISH OIL) 1,000 mg [...] Status:Closed by KELSEY GARZA on 10/12/23 Normal [facility] Laboratory - Chemistry and C hemistry - challengeOrdered By: Rodrigue Saldaña on 09-12-2023 Cobalamin (Vitamin B12) [Mass/Vol] 881 pg/mL 211-911 [facility] Absolute lymphocyte countOrd ered By: Regine Morales on 07-20-2023 Lymphocytes Auto (Unsp spec) [#/Vol] 2.27 10*3/uL 0.83-4.51 [facility] Basophil percentageOrdered B y: Regine Morales on 07-20-2023 Basophils/100 WBC (Bld) 0.8 % 0-1 [facility] Chloride [Moles/Vol] 106 mmol/L 98-107 [facility] Cholesterol [Mass/Vol] 138 mg/dL <200 [facility] Comment on above: <200 mg/dL Desirable 200-240 mg/dL Borderline >240 mg/dL High Risk Eosinophils/100 WBC (Bld) 3.9 % 0-5 [facility] Glucose [Mass/Vol] 92 mg/dL 74-106 [facility] Neutrophils (Bld) [#/Vol] 2.3 10*3/uL 2.0-7.7 [facility] Neutrophils/100 WBC (Bld) 43.7 % 47-70 [facility] Potassium [Moles/Vol] 3.5 mmol/L 3.5-5.1 [facility] Sodium [Moles/Vol] 142 mmol/L 136-145 [facility] Triglyceride [Mass/Vol] 105 mg/dL <199 [facility] Comment on above: The drugs N-Acetylcy steine and Metamizole may falsely depress this assay.Serum Triglycerides Reference Interval Normal <150 mg/dL Borderline high 150 - 199 mg/dL High 200 - 499 mg/dL Very High > or = 500 mg/dL WBC (Bld) [#/Vol] 5.3 10*3/uL 4.4-11.0 [facility] Blood erythrocytes count (nu mber/volume)Ordered By: Regine Morales on 07-20-2023 RBC (Bld) [#/Vol] 4.51 10*6/uL 4.2-5.4 [facility] Blood hemoglobin measurement (mass/volume)Ordered By: Regine Morales on 07-20-2023 Hemoglobin (Bld) [Mass/Vol] 13.4 g/dL 12.0-15.0 [facility] Blood lymphocytes/100 leukoc ytesOrdered By: Regine Morales on 07-20-2023 Lymphocytes/100 WBC (Bld) 42.6 % 19-41 [facility] Blood monocytes/100 leukocyt esOrdered By: Regine Morales on 07-20-2023 Monocytes/100 WBC (Bld) 8.8 % 0-10 [facility] Blood platelet mean volumeOr dered By: Regine Morales on 07-20-2023 Platelet mean volume (Bld) [Entitic vol] 10.4 fL 6.2-12.0 [facility] Determination of erythrocyte mean corpuscular volume (MCV)Ordered By: Regine Morales on 07-20-2023 MCV (RBC) [Entitic vol] 92.7 fL 81-99 [facility] Hematocrit Auto (Bld) [Volum e fraction]Ordered By: Regine Morales on 07-20-2023 Hematocrit (Bld) [Volume fraction] 41.8 % 37-47 [facility] Laboratory - Chemistry and C hemistry - challengeOrdered By: Regine Morales on 07-20-2023 CO2 [Moles/Vol] 27.0 mmol/L 21.0-32.0 [facility] Urea nitrogen/Creatinine [Mass ratio] 34.5 mg/mg 10-20 [facility] Laboratory - Hematology and Cell countsOrdered By: Regine Morales on 07-20-2023 Erythrocyte distribution width (RBC) [Entitic vol] 51.7 fL 35.1-43.9 [facility] Erythrocyte distribution width (RBC) [Ratio] 15.1 % 11.6-14.6 [facility] Immature granulocytes/100 WBC (Bld) 0.200 % 0.0-0.9 [facility] Comment on above: IG% - Immature Granu locytes (promyelocytes, myelocytes and metamyelocytes) > 1% indicates that a LEFT SHIFT is Present. MCH (RBC) [Entitic mass] 29.7 pg 27.0-32.0 [facility] Nucleated RBC/100 WBC (Bld) [Ratio] 0 % 0-5 [facility] MCHC Auto (RBC) [Mass/Vol]Or dered By: Regine Morales on 07-20-2023 MCHC (RBC) [Mass/Vol] 32.1 g/dL 32-36 [facility] No Panel InformationOrdered By: Regine Morales on 07-20-2023 Estimated GFR (MDRD) Amer 59 mL/min >60 [facility] Comment on above: GFR Calc Estimated GFR (MDRD) Non-Af Amer 49 mL/min >60 [facility] Comment on above: Non- GFR Calc Vitamin D 25-Hydroxy 62.2 ng/mL [facility] Comment on above: Vitamin D 25(OH) Sta tus Range Deficiency <20 ng/mL (50nmol/L) Insufficiency 20 - 30 ng/mL (50 - 75 nmol/L) Sufficiency 30 - 100 ng/mL (75 - 250 nmol/L) Toxicity >100 ng/mL (>250 nmol/L) Platelets bldOrdered By: Serafin Morales on 07-20-2023 Platelets (Bld) [#/Vol] 159 10*3/uL 150-450 [facility] Serum or plasma calcium murali urement (mass/volume)Ordered By: Regine Morales on 07-20-2023 Calcium [Mass/Vol] 8.8 mg/dL 8.5-10.1 [facility] Serum or plasma cholesterol in HDL measurement (mass/volume)Ordered By: Regine Morales on 07-20-2023 Cholesterol in HDL [Mass/Vol] 51 mg/dL >40 [facility] Comment on above: The drugs N-Acetylcy steine and Metamizole may falsely depress this assay. Reference Range HDL <40 mg/dL Low HDL Cholesterol HDL >or= 60 mg/dL High HDL Cholesterol Serum or plasma cholesterol in VLDL measurement (mass/volume)Ordered By: Regine Morales on 07-20-2023 Cholesterol in VLDL [Mass/Vol] 21 mg/dL 5-40 [facility] Serum or plasma creatinine m easurement (mass/volume)Ordered By: Regine Morales on 07-20-2023 Creatinine [Mass/Vol] 1.13 mg/dL 0.55-1.02 [facility] Comment on above: The validity of the calculated GFR & GFRAA in patients over 70 years has not been determined. Clinical correlation is essential. Serum or plasma low density lipoprotein (LDL) cholesterol measurement (mass/volume)Ordered By: Regine Morales on 07-20-2023 Cholesterol in LDL [Mass/Vol] 66 mg/dL 0-130 [facility] Serum or plasma urea nitroge n measurement (mass/volume)Ordered By: Regine Morales on 07-20-2023 Urea nitrogen [Mass/Vol] 39 mg/dL 7-18 [facility] Thin prep Papanicolaou smear with manual screeningOrdered By: Regine Morales on 07-20-2023 Thin prep Papanicolaou smear with manual screening 9 5-15 [facility] Basophil percentageOrdered B y: Rodrigue Saldaña on 07-13-2023 Potassium [Moles/Vol] 3.6 mmol/L 3.5-5.1 [facility] Absolute lymphocyte countOrd ered By: Roula Grimes on 07-05-2023 Lymphocytes Auto (Unsp spec) [#/Vol] 2.48 10*3/uL 0.83-4.51 [facility] Basophil percentageOrdered B y: [facility] on 07-05-2023 Basophils/100 WBC (Bld) 0.6 % 0-1 [facility] Bilirubin [Mass/Vol] 0.50 mg/dL 0.20-1.00 [facility] Comment on above: For patients on eltr ombopag therapy, use of Dimension [place] TBIL is not recommended. Chloride [Moles/Vol] 108 mmol/L 98-107 [facility] Eosinophils/100 WBC (Bld) 3.5 % 0-5 [facility] Glucose [Mass/Vol] 97 mg/dL 74-106 [facility] Neutrophils (Bld) [#/Vol] 3.5 10*3/uL 2.0-7.7 [facility] Neutrophils/100 WBC (Bld) 50.4 % 47-70 [facility] Potassium [Moles/Vol] 3.4 mmol/L 3.5-5.1 [facility] Protein [Mass/Vol] 7.2 g/dL 6.4-8.2 [facility] Sodium [Moles/Vol] 142 mmol/L 136-145 [facility] WBC (Bld) [#/Vol] 6.9 10*3/uL 4.4-11.0 [facility] Blood erythrocytes count (nu mber/volume)Ordered By: [facility] on 07-05-2023 RBC (Bld) [#/Vol] 4.42 10*6/uL 4.2-5.4 [facility] Blood hemoglobin measurement (mass/volume)Ordered By: [facility] on 07-05-2023 Hemoglobin (Bld) [Mass/Vol] 13.3 g/dL 12.0-15.0 [facility] Blood lymphocytes/100 leukoc ytesOrdered By: [facility] on 07-05-2023 Lymphocytes/100 WBC (Bld) 36.2 % 19-41 [facility] Blood monocytes/100 leukocyt esOrdered By: [facility] on 07-05-2023 Monocytes/100 WBC (Bld) 8.9 % 0-10 [facility] Blood platelet mean volumeOr dered By: [facility] on 07-05-2023 Platelet mean volume (Bld) [Entitic vol] 9.9 fL 6.2-12.0 [facility] Determination of erythrocyte mean corpuscular volume (MCV)Ordered By: [facility] 07-05-2023 MCV (RBC) [Entitic vol] 91.6 fL 81-99 [facility] Hematocrit Auto (Bld) [Volum e fraction]Ordered By: [facility] 07-05-2023 Hematocrit (Bld) [Volume fraction] 40.5 % 37-47 [facility] Laboratory - Chemistry and C hemistry - challengeOrdered By: [facility] on 07-05-2023 ALP [Catalytic activity/Vol] 88 U/L 45-117 [facility] ALT [Catalytic activity/Vol] 22 U/L 13-56 [facility] CO2 [Moles/Vol] 25.0 mmol/L 21.0-32.0 [facility] Cobalamin (Vitamin B12) [Mass/Vol] 207 pg/mL 211-911 [facility] Globulin (S) [Mass/Vol] 3.9 g/dL 2.2-4.2 [facility] Urea nitrogen/Creatinine [Mass ratio] 51.8 mg/mg 10-20 [facility] Laboratory - Hematology and Cell countsOrdered By: [facility] 07-05-2023 Erythrocyte distribution width (RBC) [Entitic vol] 50.5 fL 35.1-43.9 [facility] Erythrocyte distribution width (RBC) [Ratio] 14.8 % 11.6-14.6 [facility] Immature granulocytes/100 WBC (Bld) 0.400 % 0.0-0.9 [facility] Comment on above: IG% - Immature Granu locytes (promyelocytes, myelocytes and metamyelocytes) > 1% indicates that a LEFT SHIFT is Present. MCH (RBC) [Entitic mass] 30.1 pg 27.0-32.0 [facility] Nucleated RBC/100 WBC (Bld) [Ratio] 0 % 0-5 [facility] MCHC Auto (RBC) [Mass/Vol]Or dered By: [facility] on 07-05-2023 MCHC (RBC) [Mass/Vol] 32.8 g/dL 32-36 [facility] No Panel InformationOrdered By: [facility] on 07-05-2023 Estimated GFR (MDRD) Amer 61 mL/min >60 [facility] Comment on above: GFR Calc Estimated GFR (MDRD) Non-Af Amer 50 mL/min >60 [facility] Comment on above: Non- GFR Calc Thyroid Stimulating Hormone (TSH) 0.90 uIU/mL 0.358-3.74 [facility] Vitamin D 25-Hydroxy 49.2 ng/mL [facility] Comment on above: Vitamin D 25(OH) Sta tus Range Deficiency <20 ng/mL (50nmol/L) Insufficiency 20 - 30 ng/mL (50 - 75 nmol/L) Sufficiency 30 - 100 ng/mL (75 - 250 nmol/L) Toxicity >100 ng/mL (>250 nmol/L) Platelets bldOrdered By: [facility] on 07-05-2023 Platelets (Bld) [#/Vol] 180 10*3/uL 150-450 [facility] Serum or plasma albumin murali urement (mass/volume)Ordered By: [facility] on 07-05-2023 Albumin [Mass/Vol] 3.3 g/dL 3.2-5.0 [facility] Serum or plasma albumin/glob ulin mass ratioOrdered By: [facility] on 07-05-2023 Albumin/Globulin [Mass ratio] 0.8 {ratio} 0.9-2.4 [facility] Serum or plasma calcium murali urement (mass/volume)Ordered By: [facility] on 07-05-2023 Calcium [Mass/Vol] 8.8 mg/dL 8.5-10.1 [facility] Serum or plasma creatinine m easurement (mass/volume)Ordered By: [facility] on 07-05-2023 Creatinine [Mass/Vol] 1.10 mg/dL 0.55-1.02 [facility] Comment on above: The validity of the calculated GFR & GFRAA in patients over 70 years has not been determined. Clinical correlation is essential. Serum or plasma urea nitroge n measurement (mass/volume)Ordered By: [facility] on 07-05-2023 Urea nitrogen [Mass/Vol] 57 mg/dL 7-18 [facility] Thin prep Papanicolaou smear with manual screeningOrdered By: [facility] on 07-05-2023 Thin prep Papanicolaou smear with manual screening 22 U/L 15-37 [facility] Thin prep Papanicolaou smear with manual screening 9 5-15 [facility] Anaerobic cultureOrdered By: Rodrigue Saldaña on 06-03-2023 Bacteria identified Anaer cx Nom (Unsp spec) No anaerobic bacteria isolated. [facility] Bacteria identified Cx Nom ( Wound)Ordered By: Rodrigue Saldaña on 06-03-2023 Wound Culture Meth. resistant Stap h. aureus [facility] Wound Culture Corynebacterium striatum [facility] Gram stain for investigation of transfusion reactionOrdered By: Rodrigue Saldaña on 06-03-2023 Microscopic observation Gram stain Nom (Unsp spec) [facility] Anaerobic cultureOrdered By: Rodrigue Saldaña on 06-02-2023 Bacteria identified Anaer cx Nom (Unsp spec) No anaerobic bacteria isolated. [facility] Bacteria identified Cx Nom ( Wound)Ordered By: Rodrigue Saldaña on 06-02-2023 Wound Culture Meth. resistant Stap h. aureus [facility] Wound Culture Corynebacterium striatum [facility] Gram stain for investigation of transfusion reactionOrdered By: Rodrigue Saldaña on 06-02-2023 Microscopic observation Gram stain Nom (Unsp spec) [facility] Bacteria identified Cx Nom ( Wound)Ordered By: Rodrigue Saldaña on 05-15-2023 Wound Culture Meth. resistant Stap h. aureus [facility] Wound Culture Kocuria marbinae [facility] Gram stain for investigation of transfusion reactionOrdered By: Rodrigue Saldaña on 05-15-2023 Microscopic observation Gram stain Nom (Unsp spec) [facility] Basophil percentageOrdered B y: Regine Morales on 04-19-2023 Cholesterol [Mass/Vol] 156 mg/dL <200 [facility] Comment on above: <200 mg/dL Desirable 200-240 mg/dL Borderline >240 mg/dL High Risk Triglyceride [Mass/Vol] 205 mg/dL <199 [facility] Comment on above: The drugs N-Acetylcy steine and Metamizole may falsely depress this assay.Serum Triglycerides Reference Interval Normal <150 mg/dL Borderline high 150 - 199 mg/dL High 200 - 499 mg/dL Very High > or = 500 mg/dL Serum or plasma cholesterol in HDL measurement (mass/volume)Ordered By: Regine Morales on 04-19-2023 Cholesterol in HDL [Mass/Vol] 49 mg/dL >40 [facility] Comment on above: The drugs N-Acetylcy steine and Metamizole may falsely depress this assay. Reference Range HDL <40 mg/dL Low HDL Cholesterol HDL >or= 60 mg/dL High HDL Cholesterol Serum or plasma cholesterol in VLDL measurement (mass/volume)Ordered By: Regine Morales on 04-19-2023 Cholesterol in VLDL [Mass/Vol] 41 mg/dL 5-40 [facility] Serum or plasma low density lipoprotein (LDL) cholesterol measurement (mass/volume)Ordered By: Regine Morales on 04-19-2023 Cholesterol in LDL [Mass/Vol] 66 mg/dL 0-130 [facility] Absolute lymphocyte countOrd ered By: Rodrigue Saldaña on 01-17-2023 Lymphocytes Auto (Unsp spec) [#/Vol] 2.14 10*3/uL 0.83-4.51 [facility] Basophil percentageOrdered B y: Rodrigue Saldaña on 01-17-2023 Basophils/100 WBC (Bld) 0.7 % 0-1 [facility] Chloride [Moles/Vol] 109 mmol/L 98-107 [facility] Cholesterol [Mass/Vol] 196 mg/dL <200 [facility] Comment on above: <200 mg/dL Desirable 200-240 mg/dL Borderline >240 mg/dL High Risk Eosinophils/100 WBC (Bld) 3.9 % 0-5 [facility] Glucose [Mass/Vol] 78 mg/dL 74-106 [facility] Neutrophils (Bld) [#/Vol] 2.7 10*3/uL 2.0-7.7 [facility] Neutrophils/100 WBC (Bld) 47.8 % 47-70 [facility] Potassium [Moles/Vol] 3.5 mmol/L 3.5-5.1 [facility] Sodium [Moles/Vol] 144 mmol/L 136-145 [facility] Triglyceride [Mass/Vol] 275 mg/dL <199 [facility] Comment on above: The drugs N-Acetylcy steine and Metamizole may falsely depress this assay.Serum Triglycerides Reference Interval Normal <150 mg/dL Borderline high 150 - 199 mg/dL High 200 - 499 mg/dL Very High > or = 500 mg/dL WBC (Bld) [#/Vol] 5.6 10*3/uL 4.4-11.0 [facility] Blood erythrocytes count (nu mber/volume)Ordered By: Rodrigue Saldaña on 01-17-2023 RBC (Bld) [#/Vol] 4.73 10*6/uL 4.2-5.4 [facility] Blood hemoglobin measurement (mass/volume)Ordered By: Rodrigue Saldaña on 01-17-2023 Hemoglobin (Bld) [Mass/Vol] 13.9 g/dL 12.0-15.0 [facility] Blood lymphocytes/100 leukoc ytesOrdered By: Rodrigue Saldaña on 01-17-2023 Lymphocytes/100 WBC (Bld) 38.4 % 19-41 [facility] Blood monocytes/100 leukocyt esOrdered By: Rodrigue Saldaña on 01-17-2023 Monocytes/100 WBC (Bld) 9.0 % 0-10 [facility] Blood platelet mean volumeOr dered By: Rodrigue Saldaña on 01-17-2023 Platelet mean volume (Bld) [Entitic vol] 9.8 fL 6.2-12.0 [facility] Determination of erythrocyte mean corpuscular volume (MCV)Ordered By: Rodrigue Saldaña on 01-17-2023 MCV (RBC) [Entitic vol] 91.5 fL 81-99 [facility] Hematocrit Auto (Bld) [Volum e fraction]Ordered By: Rodrigue Saldaña on 01-17-2023 Hematocrit (Bld) [Volume fraction] 43.3 % 37-47 [facility] Laboratory - Chemistry and C hemistry - challengeOrdered By: Rodrigue Saldaña on 01-17-2023 CO2 [Moles/Vol] 28.0 mmol/L 21.0-32.0 [facility] Urea nitrogen/Creatinine [Mass ratio] 32.4 mg/mg 10-20 [facility] Laboratory - Hematology and Cell countsOrdered By: Rodrigue Saldaña on 01-17-2023 Erythrocyte distribution width (RBC) [Entitic vol] 56.1 fL 35.1-43.9 [facility] Erythrocyte distribution width (RBC) [Ratio] 16.6 % 11.6-14.6 [facility] Immature granulocytes/100 WBC (Bld) 0.200 % 0.0-0.9 [facility] Comment on above: IG% - Immature Granu locytes (promyelocytes, myelocytes and metamyelocytes) > 1% indicates that a LEFT SHIFT is Present. MCH (RBC) [Entitic mass] 29.4 pg 27.0-32.0 [facility] Nucleated RBC/100 WBC (Bld) [Ratio] 0 % 0-5 [facility] MCHC Auto (RBC) [Mass/Vol]Or dered By: Rodrigue Saldaña on 01-17-2023 MCHC (RBC) [Mass/Vol] 32.1 g/dL 32-36 [facility] No Panel InformationOrdered By: Rodrigue Saldaña on 01-17-2023 Estimated GFR (MDRD) Amer 81 mL/min >60 [facility] Comment on above: GFR Calc Estimated GFR (MDRD) Non-Af Amer 67 mL/min >60 [facility] Comment on above: Non- GFR Calc Platelets bldOrdered By: Mikel Saldaña on 01-17-2023 Platelets (Bld) [#/Vol] 125 10*3/uL 150-450 [facility] Serum or plasma calcium murali urement (mass/volume)Ordered By: Rodrigue Saldaña on 01-17-2023 Calcium [Mass/Vol] 9.0 mg/dL 8.5-10.1 [facility] Serum or plasma cholesterol in HDL measurement (mass/volume)Ordered By: Rodrigue Saldaña on 01-17-2023 Cholesterol in HDL [Mass/Vol] 39 mg/dL >40 [facility] Comment on above: The drugs N-Acetylcy steine and Metamizole may falsely depress this assay. Reference Range HDL <40 mg/dL Low HDL Cholesterol HDL >or= 60 mg/dL High HDL Cholesterol Serum or plasma cholesterol in VLDL measurement (mass/volume)Ordered By: Rodrigue Saldaña on 01-17-2023 Cholesterol in VLDL [Mass/Vol] 55 mg/dL 5-40 [facility] Serum or plasma creatinine m easurement (mass/volume)Ordered By: Rodrigue Saldaña on 01-17-2023 Creatinine [Mass/Vol] 0.86 mg/dL 0.55-1.02 [facility] Comment on above: The validity of the calculated GFR & GFRAA in patients over 70 years has not been determined. Clinical correlation is essential. Serum or plasma low density lipoprotein (LDL) cholesterol measurement (mass/volume)Ordered By: Rodrigue Saldaña on 01-17-2023 Cholesterol in LDL [Mass/Vol] 102 mg/dL 0-130 [facility] Serum or plasma urea nitroge n measurement (mass/volume)Ordered By: Rodrigue Saldaña on 01-17-2023 Urea nitrogen [Mass/Vol] 28 mg/dL 7-18 [facility] Thin prep Papanicolaou smear with manual screeningOrdered By: [facility] on 01-17-2023 Thin prep Papanicolaou smear with manual screening 7 -15 [facility] Absolute lymphocyte counton 07-20-2022 Lymphocytes Auto (Unsp spec) [#/Vol] 2.22 10*3/uL 0.83-4.51 [facility] Work Phone: Basophil percentageon 2021 Basophils/100 WBC (Bld) 0.7 % 0-1 [facility] Work Phone: Chloride [Moles/Vol] 105 mmol/L 98-107 [facility] Work Phone: Cholesterol [Mass/Vol] 155 mg/dL <200 [facility] Work Phone: Comment on above: <200 mg/dL Desirable 200-240 mg/dL Borderline >240 mg/dL High Risk Eosinophils/100 WBC (Bld) 5.3 % 0-5 [facility] Work Phone: Glucose [Mass/Vol] 95 mg/dL 74-106 [facility] Work Phone: Neutrophils (Bld) [#/Vol] 3.6 10*3/uL 2.0-7.7 [facility] Work Phone: Neutrophils/100 WBC (Bld) 52.4 % 47-70 [facility] Work Phone: Potassium [Moles/Vol] 3.7 mmol/L 3.5-5.1 [facility] Work Phone: Sodium [Moles/Vol] 143 mmol/L 136-145 [facility] Work Phone: Triglyceride [Mass/Vol] 160 mg/dL <199 [facility] Work Phone: Comment on above: The drugs N-Acetylcy steine and Metamizole may falsely depress this assay.Serum Triglycerides Reference Interval Normal <150 mg/dL Borderline high 150 - 199 mg/dL High 200 - 499 mg/dL Very High > or = 500 mg/dL WBC (Bld) [#/Vol] 6.8 10*3/uL 4.4-11.0 [facility] Work Phone: Blood erythrocytes count (nu mber/volume)on 07-20-2022 RBC (Bld) [#/Vol] 4.66 10*6/uL 4.2-5.4 [facility] Work Phone: Blood hemoglobin measurement (mass/volume)on 07-20-2022 Hemoglobin (Bld) [Mass/Vol] 13.6 g/dL 12.0-15.0 [facility] Work Phone: Blood lymphocytes/100 leukoc yteson 07-20-2022 Lymphocytes/100 WBC (Bld) 32.6 % 19-41 [facility] Work Phone: Blood monocytes/100 leukocyt eson 07-20-2022 Monocytes/100 WBC (Bld) 8.7 % 0-10 [facility] Work Phone: Blood platelet mean volumeon 07-20-2022 Platelet mean volume (Bld) [Entitic vol] 9.8 fL 6.2-12.0 [facility] Work Phone: Determination of erythrocyte mean corpuscular volume (MCV)on 07-20-2022 MCV (RBC) [Entitic vol] 90.3 fL 81-99 [facility] Work Phone: Hematocrit Auto (Bld) [Volum e fraction]on 07-20-2022 Hematocrit (Bld) [Volume fraction] 42.1 % 37-47 [facility] Work Phone: Laboratory - Chemistry and C hemistry - challengeon 07-20-2022 CO2 [Moles/Vol] 26.0 mmol/L 21.0-32.0 [facility] Work Phone: Urea nitrogen/Creatinine [Mass ratio] 22.1 mg/mg 10-20 [facility] Work Phone: Laboratory - Hematology and Cell countson 07-20-2022 Erythrocyte distribution width (RBC) [Entitic vol] 54.7 fL 35.1-43.9 [facility] Work Phone: Erythrocyte distribution width (RBC) [Ratio] 16.7 % 11.6-14.6 [facility] Work Phone: Immature granulocytes/100 WBC (Bld) 0.300 % 0.0-0.9 [facility] Work Phone: Comment on above: IG% - Immature Granu locytes (promyelocytes, myelocytes and metamyelocytes) > 1% indicates that a LEFT SHIFT is Present. MCH (RBC) [Entitic mass] 29.2 pg 27.0-32.0 [facility] Work Phone: Nucleated RBC/100 WBC (Bld) [Ratio] 0 % 0-5 [facility] Work Phone: MCHC Auto (RBC) [Mass/Vol]on 07-20-2022 MCHC (RBC) [Mass/Vol] 32.3 g/dL 32-36 [facility] Work Phone: No Panel Informationon 07-20 Estimated GFR (MDRD) Amer 59 mL/min >60 [facility] Work Phone: Comment on above: GFR Calc Estimated GFR (MDRD) Non-Af Amer 49 mL/min >60 [facility] Work Phone: Comment on above: Non- GFR Calc Vitamin D 25-Hydroxy 54.0 ng/mL [facility] Work Phone: Comment on above: Vitamin D 25(OH) Sta tus Range Deficiency <20 ng/mL (50nmol/L) Insufficiency 20 - 30 ng/mL (50 - 75 nmol/L) Sufficiency 30 - 100 ng/mL (75 - 250 nmol/L) Toxicity >100 ng/mL (>250 nmol/L) Platelets bldon 07-20-2022 Platelets (Bld) [#/Vol] 141 10*3/uL 150-450 [facility] Work Phone: Serum or plasma calcium murali urement (mass/volume)on 07-20-2022 Calcium [Mass/Vol] 8.8 mg/dL 8.5-10.1 [facility] Work Phone: Serum or plasma cholesterol in HDL measurement (mass/volume)on 07-20-2022 Cholesterol in HDL [Mass/Vol] 38 mg/dL >40 [facility] Work Phone: Comment on above: The drugs N-Acetylcy steine and Metamizole may falsely depress this assay. Reference Range HDL <40 mg/dL Low HDL Cholesterol HDL >or= 60 mg/dL High HDL Cholesterol Serum or plasma cholesterol in VLDL measurement (mass/volume)on 07-20-2022 Cholesterol in VLDL [Mass/Vol] 32 mg/dL 5-40 [facility] Work Phone: Serum or plasma creatinine m easurement (mass/volume)on 07-20-2022 Creatinine [Mass/Vol] 1.13 mg/dL 0.55-1.02 [facility] Work Phone: Comment on above: The validity of the calculated GFR & GFRAA in patients over 70 years has not been determined. Clinical correlation is essential. Serum or plasma low density lipoprotein (LDL) cholesterol measurement (mass/volume)on 07-20-2022 Cholesterol in LDL [Mass/Vol] 85 mg/dL 0-130 [facility] Work Phone: Serum or plasma urea nitroge n measurement (mass/volume)on 07-20-2022 Urea nitrogen [Mass/Vol] 25 mg/dL 7-18 [facility] Work Phone: Thin prep Papanicolaou smear with manual screeningon 07-20-2022 Thin prep Papanicolaou smear with manual screening 12 5-15 [facility] Work Phone: Basophil percentageon 2021 Cholesterol [Mass/Vol] 151 mg/dL <200 [facility] Work Phone: Comment on above: <200 mg/dL Desirable 200-240 mg/dL Borderline >240 mg/dL High Risk Potassium [Moles/Vol] 3.3 mmol/L 3.5-5.1 [facility] Work Phone: Triglyceride [Mass/Vol] 178 mg/dL <199 [facility] Work Phone: Comment on above: The drugs N-Acetylcy steine and Metamizole may falsely depress this assay.Serum Triglycerides Reference Interval Normal <150 mg/dL Borderline high 150 - 199 mg/dL High 200 - 499 mg/dL Very High > or = 500 mg/dL Serum or plasma cholesterol in HDL measurement (mass/volume)on 04-19-2022 Cholesterol in HDL [Mass/Vol] 38 mg/dL >40 [facility] Work Phone: Comment on above: The drugs N-Acetylcy steine and Metamizole may falsely depress this assay. Reference Range HDL <40 mg/dL Low HDL Cholesterol HDL >or= 60 mg/dL High HDL Cholesterol Serum or plasma cholesterol in VLDL measurement (mass/volume)on 04-19-2022 Cholesterol in VLDL [Mass/Vol] 36 mg/dL 5-40 [facility] Work Phone: [phone] Serum or plasma low density lipoprotein (LDL) cholesterol measurement (mass/volume)on 04-19-2022 Cholesterol in LDL [Mass/Vol] 77 mg/dL 0-130 [facility] Work Phone: [phone] Absolute lymphocyte counton 01-31-2022 Lymphocytes Auto (Unsp spec) [#/Vol] 2.30 10*3/uL 0.83-4.51 [facility] Work Phone: [phone] Basophil percentageon 2021 Basophils/100 WBC (Bld) 0.5 % 0-1 [facility] Work Phone: [phone] Chloride [Moles/Vol] 108 mmol/L 98-107 [facility] Work Phone: [phone] Eosinophils/100 WBC (Bld) 4.0 % 0-5 [facility] Work Phone: Glucose [Mass/Vol] 122 mg/dL 74-106 [facility] Work Phone: [phone] Comment on above: Fasting Glucose resu lt from 100 to 125 mg/dL suggests IMPAIRED HOMEOSTASIS per A.D.A. criteria. Neutrophils (Bld) [#/Vol] 4.0 10*3/uL 2.0-7.7 [facility] Work Phone: [phone] Neutrophils/100 WBC (Bld) 55.0 % 47-70 [facility] Work Phone: [phone] Potassium [Moles/Vol] 3.3 mmol/L 3.5-5.1 [facility] Work Phone: [phone] Sodium [Moles/Vol] 141 mmol/L 136-145 [facility] Work Phone: [phone] WBC (Bld) [#/Vol] 7.3 10*3/uL 4.4-11.0 [facility] Work Phone: Blood erythrocytes count (nu mber/volume)on 01-31-2022 RBC (Bld) [#/Vol] 4.29 10*6/uL 4.2-5.4 [facility] Work Phone: Blood hemoglobin measurement (mass/volume)on 01-31-2022 Hemoglobin (Bld) [Mass/Vol] 12.6 g/dL 12.0-15.0 [facility] Work Phone: Blood lymphocytes/100 leukoc yteson 01-31-2022 Lymphocytes/100 WBC (Bld) 31.6 % 19-41 [facility] Work Phone: Blood monocytes/100 leukocyt eson 01-31-2022 Monocytes/100 WBC (Bld) 8.6 % 0-10 [facility] Work Phone: Blood platelet mean volumeon 01-31-2022 Platelet mean volume (Bld) [Entitic vol] 9.6 fL 6.2-12.0 [facility] Work Phone: Determination of erythrocyte mean corpuscular volume (MCV)on 01-31-2022 MCV (RBC) [Entitic vol] 90.0 fL 81-99 [facility] Work Phone: Hematocrit Auto (Bld) [Volum e fraction]on 01-31-2022 Hematocrit (Bld) [Volume fraction] 38.6 % 37-47 [facility] Work Phone: Laboratory - Chemistry and C hemistry - challengeon 01-31-2022 CO2 [Moles/Vol] 25.0 mmol/L 21.0-32.0 [facility] Work Phone: Urea nitrogen/Creatinine [Mass ratio] 31.1 mg/mg 10-20 [facility] Work Phone: Laboratory - Hematology and Cell countson 01-31-2022 Erythrocyte distribution width (RBC) [Entitic vol] 52.0 fL 35.1-43.9 [facility] Work Phone: Erythrocyte distribution width (RBC) [Ratio] 15.9 % 11.6-14.6 [facility] Work Phone: Immature granulocytes/100 WBC (Bld) 0.300 % 0.0-0.9 [facility] Work Phone: Comment on above: IG% - Immature Granu locytes (promyelocytes, myelocytes and metamyelocytes) > 1% indicates that a LEFT SHIFT is Present. MCH (RBC) [Entitic mass] 29.4 pg 27.0-32.0 [facility] Work Phone: Nucleated RBC/100 WBC (Bld) [Ratio] 0 % 0-5 [facility] Work Phone: MCHC Auto (RBC) [Mass/Vol]on 01-31-2022 MCHC (RBC) [Mass/Vol] 32.6 g/dL 32-36 [facility] Work Phone: No Panel Informationon 01-31 Estimated GFR (MDRD) Amer 69 mL/min >60 [facility] Work Phone: Comment on above: GFR Calc Estimated GFR (MDRD) Non-Af Amer 57 mL/min >60 [facility] Work Phone: Comment on above: Non- GFR Calc Platelets bldon 01-31-2022 Platelets (Bld) [#/Vol] 139 10*3/uL 150-450 [facility] Work Phone: Serum or plasma calcium murali urement (mass/volume)on 01-31-2022 Calcium [Mass/Vol] 8.6 mg/dL 8.5-10.1 [facility] Work Phone: Serum or plasma creatinine m easurement (mass/volume)on 01-31-2022 Creatinine [Mass/Vol] 1.00 mg/dL 0.55-1.02 [facility] Work Phone: Comment on above: The validity of the calculated GFR & GFRAA in patients over 70 years has not been determined. Clinical correlation is essential. Serum or plasma urea nitroge n measurement (mass/volume)on 01-31-2022 Urea nitrogen [Mass/Vol] 31 mg/dL 7-18 [facility] Work Phone: Thin prep Papanicolaou smear with manual screeningon 01-31-2022 Thin prep Papanicolaou smear with manual screening 01-22 [facility] Work Phone: CBCon 05-17-2021 Absolute nRBC <0.01 Normal <0.01 [facility] Erythrocyte distribution width (RBC) [Ratio] 14.8 % Normal 11.5-15.0 [facility] Hematocrit (Bld) [Volume fraction] 39.7 % Normal 36.0-46.0 [facility] Hemoglobin (Bld) [Mass/Vol] 13.1 g/dL Normal 11.5-15.5 [facility] MCH 29.6 pG Normal 26.0-34.0 [facility] MCHC (RBC) [Mass/Vol] 33.0 g/dL Normal 30.5-36.0 [facility] MCV (RBC) [Entitic vol] 89.6 fL Normal 80.0-100.0 [facility] Platelet mean volume (Bld) [Entitic vol] 9.2 fL Normal 9.0-12.7 [facility] Platelets (Bld) [#/Vol] 191 10*3/uL Normal 150-400 [facility] RBC (Bld) [#/Vol] 4.43 10*6/uL Normal 3.90-5.20 [facility] WBC (Bld) [#/Vol] 7.18 10*3/uL Normal 3.70-11.00 [facility] Magnesiumon 05-17-2021 Magnesium [Mass/Vol] 1.9 mg/dL Normal 1.7-2.6 [facility] NURSING PROGon 05-17-2021 NURSING PROG HNO ID: [id number] Author: Kymberly Maldonado RN Service: ? Author Type: Registered Nurse Type: Nursing Progress Note Filed: 05/17/2021 4:33 PM Note Text: Nursing Progress Note Patient Name: Yaa Ward Patient Location: /-1 Daily Note: 0759 received report from overnight caregiver RN and assumed care. Bedside report and safety checks complete. 1630 called report to nurse Karen at [place] This note was completed by: Kymberly Maldonado Normal [facility] Renal Function Panelon 05-17 Albumin [Mass/Vol] 3.3 g/dL Low 3.5-5.0 [facility] Anion gap [Moles/Vol] 14 mmol/L Normal 0-15 [facility] Calcium [Mass/Vol] 9.0 mg/dL Normal 8.5-10.2 [facility] Chloride [Moles/Vol] 102 mmol/L Normal 97-105 [facility] CO2 [Moles/Vol] 23 mmol/L Normal 22-30 [facility] Creatinine [Mass/Vol] 0.98 mg/dL High 0.58-0.96 [facility] eGFR- Amer. >60 Normal [facility] eGFR-All Other Races 54 . Normal [facility] Comment on above: Result Comment: eGFR [...] GFR. Glucose [Mass/Vol] 91 mg/dL Normal 74-99 [facility] Phosphate [Mass/Vol] 3.6 mg/dL Normal 2.7-4.8 [facility] Potassium [Moles/Vol] 3.9 mmol/L Normal 3.7-5.1 [facility] Sodium [Moles/Vol] 139 mmol/L Normal 136-144 [facility] Urea nitrogen [Mass/Vol] 26 mg/dL High - [facility] THERAPY NTon 05-17-2021 THERAPY NT HNO ID: [id number] Author: Delisa Nichole OT/L Service: Occupational Therapy Author Type: Occupational Therapist Type: Therapy (PT/OT/Speech/Resp) Filed: 05/17/2021 11:31 AM Note Text: Occupational Therapy Evaluation SERVICE DATE: 05/17/2021 SERVICE TIME: 951 to 1034 ROOM: [place] [address] Recommended Discharge Disposition: Subacute/SNF Recommended Discharge Disposition [...] Hospital Admission: pt was discharged home from [facility] on 05/15/21 and was admitted to [facility] that same day due to pt's inability to get out of a chair at home. [facility] PT had recommended SNF, which pt [...] Patient Lives With: Self/Alone Assistance Available: multimedia technician (privately pay for help 1x/wk) Entry To [...] (more content not included)... Normal [facility] HISTORY PHYSICALon 09-06-202 1 HISTORY PHYSICAL HNO ID: [id number] Author: Baldo Whitney MD Service: General Internal Medicine Author Type: Physician Type: HANDP Filed: 05/17/2021 2:58 PM Note Text: HISTORY AND PHYSICAL EXAMINATION - INTERNAL MEDICINE PATIENT NAME: Yaa Ward SERVICE DATE: 2021 PRIMARY CARE PHYSICIAN: Delisa Estrella, DO ASSESSMENT AND PLAN Malaise and fatigue -PT/OT Diverticulitis -c/w cipro and flagyl till 05/22 HTN CAD HPL GERD SUBJECTIVE CHIEF COMPLAINT: Fatigue HISTORY OF PRESENT ILLNESS: Yaa Ward is an 81 year old female who presents with fatigue and weakness. Patient was recently admitted to [place] with diverticulitis. 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 [facility] NURSING PROGon 2021 NURSING PROG HNO ID: [id number] Author: Juliana Arenas RN Service: ? Author Type: Registered Nurse Type: Nursing Progress Note Filed: 2021 7:11 PM Note Text: Nursing Progress Note Patient Name: Yaa [place] Location[place] Daily Note: 1910 received report, pt resting in bed, assuming care, safety checks complete. This note was completed by: Juliana Arenas [facility] NURSING PROG HNO ID: [id number] Author: Ina Ho RN Service: Nursing Author Type: Registered Nurse Type: Nursing Progress Note Filed: 2021 2:53 PM Note Text: Nursing Progress Note Patient Name: Yaa Ward Patient Location[place] Daily Note: 0730 Assumed care of pt, bed locked in low position, call light within reach, rec'd report from Meri LEONG, pt sleeping at this time, auto trays Regular diet 0840 Assessment complete, see NPR [address], pt very depressed about losing her independence and has cried multiple times today This note was completed by: Ina Ho [facility] THERAPY NTon 2021 THERAPY NT HNO ID: [id number] Author: Dru Bowens, PT Service: Physical Therapy Author Type: Physical Therapist Type: Therapy (PT/OT/Speech/Resp) Filed: 2021 10:38 AM Note Text: Physical Therapy Evaluation SERVICE DATE: 2021 SERVICE TIME: 958 to 1021 ROOM: [place] [address] Recommended Discharge Disposition: Subacute/SNF Recommended Discharge Disposition [...] Hospital Admission: pt was discharged home from [facility] on 05/15/21 and was admitted to [facility] that same day due to pt's inability to get out of a chair at home. [facility] PT had recommended SNF, which pt [...] (in minutes): 10 (then up to reciner) -HLM: 6: Walk 10 steps or more Learning/Educational Needs: Discharge Plan;Functional Activities/Mobility;Saf ety Goals for Plan of Care: Patient /Caregiver Goals: Go Home Goals: Patient will demonstrate progress t (more content not included)... Normal [facility] Basic Metabolic Panlon 05-15 Anion gap [Moles/Vol] 14 mmol/L Normal 9-18 [facility] Calcium [Mass/Vol] 9.0 mg/dL Normal 8.5-10.2 [facility] Chloride [Moles/Vol] 100 mmol/L Normal 97-105 [facility] CO2 [Moles/Vol] 22 mmol/L Normal 22-33 [facility] Creatinine [Mass/Vol] 0.80 mg/dL Normal 0.58-0.96 [facility] eGFR- Amer. >60 Normal [facility] eGFR-All Other Races >60 Normal [facility] Comment on above: Result Comment: eGFR [...] GFR. Glucose [Mass/Vol] 85 mg/dL Normal 74-99 [facility] Potassium [Moles/Vol] 3.6 mmol/L Low 3.7-5.1 [facility] Sodium [Moles/Vol] 136 mmol/L Normal 136-144 [facility] Urea nitrogen [Mass/Vol] 15 mg/dL Normal 7-21 [facility] CBCon 05-15-2021 Absolute nRBC <0.01 Normal <0.01 [facility] Erythrocyte distribution width (RBC) [Ratio] 14.7 % Normal 11.5-15.0 [facility] Hematocrit (Bld) [Volume fraction] 41.5 % Normal 36.0-46.0 [facility] Hemoglobin (Bld) [Mass/Vol] 13.6 g/dL Normal 11.5-15.5 [facility] MCH 29.1 pG Normal 26.0-34.0 [facility] MCHC (RBC) [Mass/Vol] 32.8 g/dL Normal 30.5-36.0 [facility] MCV (RBC) [Entitic vol] 88.7 fL Normal 80.0-100.0 [facility] Platelet mean volume (Bld) [Entitic vol] 9.3 fL Normal 9.0-12.7 [facility] Platelets (Bld) [#/Vol] 169 10*3/uL Normal 150-400 [facility] RBC (Bld) [#/Vol] 4.68 10*6/uL Normal 3.90-5.20 [facility] WBC (Bld) [#/Vol] 7.42 10*3/uL Normal 3.70-11.00 [facility] CNDSon 05-15-2021 CNDS HNO ID: [id number] Author: Mika Borjas MD Service: Hospital Medicine [...] Attending Provider: Mika Borjas MD Primary Service: [facility] 4 REASON FOR HOSPITALIZATION: Abdominal pain and general [...] Resume pre-hospital activity ALLERGIES Allergen Reactions - Ortuqao-Wbo-Bmh Red* Other: See Comments Lethargic, and muscle [...] Refills: 1 hydrOXYz (more content not included)... [facility] NURSING PROGon 05-15-2021 NURSING PROG HNO ID: [id number] Author: Meri Ye RN Service: Nursing Author Type: Registered Nurse Type: Nursing Progress Note Filed: 05/15/2021 11:19 PM Note Text: Nursing Progress Note Patient Name: Yaa Ward Patient Location: [facility] Transfer Note: Patient transferred into [facility] in stable condition. Actions taken: Patient belongings with patient. Pt oriented to room and call light. Pt is legally blind. VSS, pt given bed bath, yellow fall socks put on. Dr. Whitney paged for admission orders. 2230: Pt given evening meds and boxed lunch. No other needs at this time. This note was completed by: Meri Ye [facility] Basic Metabolic Panlon 05-14 Anion gap [Moles/Vol] 15 mmol/L Normal 9-18 [facility] Calcium [Mass/Vol] 8.8 mg/dL Normal 8.5-10.2 [facility] Chloride [Moles/Vol] 101 mmol/L Normal 97-105 [facility] CO2 [Moles/Vol] 21 mmol/L Low 22-33 [facility] Creatinine [Mass/Vol] 0.80 mg/dL Normal 0.58-0.96 [facility] eGFR- Amer. >60 Normal [facility] eGFR-All Other Races >60 Normal [facility] Comment on above: Result Comment: eGFR [...] GFR. Glucose [Mass/Vol] 88 mg/dL Normal 74-99 [facility] Potassium [Moles/Vol] 3.6 mmol/L Low 3.7-5.1 [facility] Sodium [Moles/Vol] 137 mmol/L Normal 136-144 [facility] Urea nitrogen [Mass/Vol] 11 mg/dL Normal 7-21 [facility] CBCon 05-14-2021 Absolute nRBC <0.01 Normal <0.01 [facility] Erythrocyte distribution width (RBC) [Ratio] 14.6 % Normal 11.5-15.0 [facility] Hematocrit (Bld) [Volume fraction] 40.5 % Normal 36.0-46.0 [facility] Hemoglobin (Bld) [Mass/Vol] 13.3 g/dL Normal 11.5-15.5 [facility] MCH 29.4 pG Normal 26.0-34.0 [facility] MCHC (RBC) [Mass/Vol] 32.8 g/dL Normal 30.5-36.0 [facility] MCV (RBC) [Entitic vol] 89.6 fL Normal 80.0-100.0 [facility] Platelet mean volume (Bld) [Entitic vol] 9.2 fL Normal 9.0-12.7 [facility] Platelets (Bld) [#/Vol] 155 10*3/uL Normal 150-400 [facility] Comment on above: [facility] RBC (Bld) [#/Vol] 4.52 10*6/uL Normal 3.90-5.20 [facility] WBC (Bld) [#/Vol] 8.04 10*3/uL Normal 3.70-11.00 [facility] Basic Metabolic Panlon 05-13 Anion gap [Moles/Vol] 10 mmol/L Normal 9-18 [facility] Anion gap [Moles/Vol] 11 mmol/L Normal 9-18 [facility] Calcium [Mass/Vol] 8.7 mg/dL Normal 8.5-10.2 [facility] Calcium [Mass/Vol] 8.5 mg/dL Normal 8.5-10.2 [facility] Chloride [Moles/Vol] 102 mmol/L Normal 97-105 [facility] CO2 [Moles/Vol] 25 mmol/L Normal 22-33 [facility] CO2 [Moles/Vol] 23 mmol/L Normal 22-33 [facility] Creatinine [Mass/Vol] 0.83 mg/dL Normal 0.58-0.96 [facility] Creatinine [Mass/Vol] 0.84 mg/dL Normal 0.58-0.96 [facility] eGFR- Amer. >60 Normal [facility] eGFR-All Other Races >60 Normal [facility] Comment on above: Result Comment: eGFR [...] GFR. Glucose [Mass/Vol] 121 mg/dL High 74-99 [facility] Glucose [Mass/Vol] 123 mg/dL High 74-99 [facility] Potassium [Moles/Vol] 3.8 mmol/L Normal 3.7-5.1 [facility] Potassium [Moles/Vol] 3.7 mmol/L Normal 3.7-5.1 [facility] Sodium [Moles/Vol] 137 mmol/L Normal 136-144 [facility] Sodium [Moles/Vol] 136 mmol/L Normal 136-144 [facility] Urea nitrogen [Mass/Vol] 10 mg/dL Normal 7-21 [facility] CASE MANAGEMon 05-13-2021 CASE MANAGEM HNO ID: [id number] Author: Tejal Maynard Service: ? Author Type: ? Type: Care Mgt Progress Note Filed: 05/13/2021 1:24 PM Note Text: CARE MANAGEMENT PROGRESS NOTE SERVICE DATE: 05/13/2021 SERVICE TIME: 1:23 PM LOS: 1 day Delivered and explained AD paperwork to patient. Patient prefers to complete at home. SIGNATURE: Tejal Maynard PATIENT NAME: Yaa Ward DATE: May 13, 2021 TIME: 1:23 PM PAGER/CONTACT #: [phone] Normal [facility] CBCon 05-13-2021 Absolute nRBC <0.01 Normal <0.01 [facility] Erythrocyte distribution width (RBC) [Ratio] 14.6 % Normal 11.5-15.0 [facility] Hematocrit (Bld) [Volume fraction] 37.6 % Normal 36.0-46.0 [facility] Hemoglobin (Bld) [Mass/Vol] 12.4 g/dL Normal 11.5-15.5 [facility] MCH 29.8 pG Normal 26.0-34.0 [facility] MCHC (RBC) [Mass/Vol] 33.0 g/dL Normal 30.5-36.0 [facility] MCV (RBC) [Entitic vol] 90.4 fL Normal 80.0-100.0 [facility] Platelet mean volume (Bld) [Entitic vol] 9.2 fL Normal 9.0-12.7 [facility] Platelets (Bld) [#/Vol] 134 10*3/uL Low 150-400 [facility] RBC (Bld) [#/Vol] 4.16 10*6/uL Normal 3.90-5.20 [facility] WBC (Bld) [#/Vol] 7.46 10*3/uL Normal 3.70-11.00 [facility] NURSING PROGon 05-13-2021 NURSING PROG HNO ID: [id number] Author: Rosalba Colbert RN Service: ? 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 States [...] symptoms and signs-other Interventions Provided: Evaluation;Therapeutic Activity (13434);Therapeutic Exercise (15056) $ Evaluation-Low (97033) Billed Units: 1 unit Therapeutic Exercise (17101) Treatment Minutes: 15 $ Therapeutic Exercise (78460) Billed Units: 1 unit Verbally review bed activities Therapeutic Activity (33777) Treatment Minutes: 10 $ Therapeutic Activity (75856) Billed Units: 1 unit Training AND education [...] Please see d (more content not included)... [facility] ALLIED HEALTHon 05-12-2021 ALLIED HEALTH HNO ID: [id number] Author: Mariaelena Lozano RPh Service: Pharmacy Author Type: Pharmacist Type: Allied Health Filed: 05/12/2021 1:31 AM Note Text: PHARMACY RENAL DOSING NOTE Patient Name: Yaa Ward Date of Consult: 05/12/2021 Time of Contact: 1:29 AM Baseline Serum Creatinine (last 30 day): 1.1 Estimated Creatinine Clearance: Serum creatinine: 0.8 mg/dL 05/11/21 1616 Estimated creatinine clearance: 52 ml/min RECOMMENDATIONS/PLAN: Date [...] to changes in clinical status. Mariaelena Lozano RPh Pharmacy extension [phone] [facility] Basic Metabolic Panlon 05-12 Anion gap [Moles/Vol] 14 mmol/L Normal 9-18 [facility] Calcium [Mass/Vol] 8.8 mg/dL Normal 8.5-10.2 [facility] Chloride [Moles/Vol] 99 mmol/L Normal 97-105 [facility] CO2 [Moles/Vol] 23 mmol/L Normal 22-33 [facility] Creatinine [Mass/Vol] 0.83 mg/dL Normal 0.58-0.96 [facility] eGFR- Amer. >60 Normal [facility] eGFR-All Other Races >60 Normal [facility] Comment on above: Result Comment: eGFR [...] GFR. Glucose [Mass/Vol] 117 mg/dL High 74-99 [facility] Potassium [Moles/Vol] 3.0 mmol/L Low 3.7-5.1 [facility] Sodium [Moles/Vol] 136 mmol/L Normal 136-144 [facility] Urea nitrogen [Mass/Vol] 12 mg/dL Normal 7-21 [facility] CBCon 05-12-2021 Absolute nRBC <0.01 Normal <0.01 [facility] Erythrocyte distribution width (RBC) [Ratio] 14.9 % Normal 11.5-15.0 [facility] Hematocrit (Bld) [Volume fraction] 38.3 % Normal 36.0-46.0 [facility] Hemoglobin (Bld) [Mass/Vol] 12.8 g/dL Normal 11.5-15.5 [facility] MCH 30.0 pG Normal 26.0-34.0 [facility] MCHC (RBC) [Mass/Vol] 33.4 g/dL Normal 30.5-36.0 [facility] MCV (RBC) [Entitic vol] 89.9 fL Normal 80.0-100.0 [facility] Platelet mean volume (Bld) [Entitic vol] 9.1 fL Normal 9.0-12.7 [facility] Platelets (Bld) [#/Vol] 136 10*3/uL Low 150-400 [facility] RBC (Bld) [#/Vol] 4.26 10*6/uL Normal 3.90-5.20 [facility] WBC (Bld) [#/Vol] 6.43 10*3/uL Normal 3.70-11.00 [facility] HISTORY PHYSICALon HISTORY PHYSICAL HNO ID: [id number] Author: Charline Salcedo MD Service: Hospital Medicine Author Type: Physician Type: HANDP Filed: 05/12/2021 1:54 AM Note Text: DEPARTMENT OF HOSPITAL MEDICINE HISTORY AND PHYSICAL EXAM SERVICE DATE: 05/12/2021 Code Status: Not on file SERVICE TIME: 1:40 AM Primary Care Physician: Delisa Estrella DO NIGHT AND WEEKEND COVERAGE: [facility] COVERAGE: Patient admitted to [facility] From 0700 - 1630, please contact pager [phone] for patient issues. From 1630 - 0700, please contact the Night Hospitalist on pager [phone] for patient issues. Subjective CHIEF COMPLAINT: Abdominal [...] tablet, Rfl: 2, (more content not included)... [facility] NURSING PROGon 05-12-2021 NURSING PROG HNO ID: [id number] Author: Valerio Hernandez III, RN Service: Nursing Author Type: Registered Nurse Type: Nursing Progress Note Filed: 05/13/2021 4:40 AM Note Text: Nursing Progress Note Patient Name: Yaa Ward Patient Location: [place] [address] Daily Note: 1930 - Patient handoff report [...] note was completed by: Valerio Hernandez III [facility] NURSING PROG HNO ID: [id number] Author: Rosalba Colbert RN Service: ? Author [...] note was completed by: Rosalba Colbert RN [facility] No Panel Informationon 03-28 [facility] CITRULLINE ANTIBODYon 2018 CITRULLINE ANTIBODY <1 Normal [facility] Comment on above: Result Comment: THE TEST [...] U/ML Performed By: #### C ITAB #### [facility] [address] [place] [address] BILATERAL HAND; MIN 3 VIEWSo n 12-10-2018 BILATERAL HAND; MIN 3 VIEWS Patient Name: YAA WARD STUDY: BILATERAL HAND; MIN 3 VIEWS; BILATERAL WRIST COMPLT; MIN 3 VIEWS; 12/10/2018 5:10 pm INDICATION: bilateral hand pain; bilateral wrist pain, repeat for positioning.. COMPARISON: None ACCESSION NUMBER(S): [id number]; [id number] ORDERING CLINICIAN: JASON WILLETT FINDINGS: Three views [...] Electronically signed by: GUALBERTO REES MD Normal [facility] BILATERAL SHOULDER, CMPLT, M IN 2 VIEWSon 12-10-2018 BILATERAL SHOULDER, CMPLT, MIN 2 VIEWS Patient Name: TAIYAA STUDY: BILATERAL SHOULDER, CMPLT, MIN 2 VIEWS; 12/10/2018 5:10 pm INDICATION: bilateral shoulder pain, repeat for positioning.. COMPARISON: None ACCESSION NUMBER(S): [id number] ORDERING CLINICIAN: JASON WILLETT FINDINGS: Moderate glenohumeral and acromioclavicular osteoarthritis bilaterally. No fracture seen. No osseous lesion. 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 Electronically signed by: GUALBERTO REES MD Normal [facility] BILATERAL WRIST COMPLT; MIN 3 VIEWSon 12-10-2018 BILATERAL WRIST COMPLT; MIN 3 VIEWS Patient Name: YAA WARD STUDY: BILATERAL HAND; MIN 3 VIEWS; BILATERAL WRIST COMPLT; MIN 3 VIEWS; 12/10/2018 5:10 pm INDICATION: bilateral hand pain; bilateral wrist pain, repeat for positioning.. COMPARISON: None ACCESSION NUMBER(S): [id number]; [id number] ORDERING CLINICIAN: JASON WILLETT FINDINGS: Three views [...] Electronically signed by: GUALBERTO REES MD Normal [facility] C-REACTIVE PROTEINon 019 CRP mass conc 0.89 mg/dL Normal [facility] Comment on above: Result Comment: REF VALUE < 1.00 Performed By: #### C RP #### [facility] [address] [place] [address] CBCon 12-10-2018 Erythrocyte distribution width Ratio (RBC) 15.9 % High 11.5 - 14.5 [facility] Comment on above: Performed By: #### C BC #### [facility] [address] [place] [address] Hematocrit Volume Fraction (Bld) 45.2 % Normal 36.0 - 46.0 [facility] Comment on above: Performed By: #### C BC #### [facility] [address] [place] [address] Hemoglobin mass conc (Bld) 14.7 g/dL Normal 12.0 - 16.0 [facility] Comment on above: Performed By: #### C BC #### [facility] [address] [place], [place] MCHC mass conc (RBC) 32.5 g/dL Normal 32.0 - 36.0 [facility] Comment on above: Performed By: #### C BC #### [facility] [address] [place], [place] MCV Entitic volume (RBC) 90 fL Normal 80 - 100 [facility] Comment on above: Performed By: #### C BC #### [facility] [address] [place] [address] Nucleated RBC/100 WBC Ratio (Bld) 0.0 /100 WBC Normal 0.0-0.0 [facility] Comment on above: Performed By: #### C BC #### [facility] [address] [place] [address] Platelets #/vol (Bld) 190 10*3/uL Normal 150 - 450 [facility] Comment on above: Performed By: #### C BC #### [facility] [address] [place] [address] RBC #/vol (Bld) 5.02 x10E12/L Normal 4.00 - 5.20 [facility] Comment on above: Performed By: #### C BC #### [facility] [address] [place] [address] WBC #/vol (Bld) 8.3 10*3/uL Normal 4.4 - 11.3 [facility] Comment on above: Performed By: #### C BC #### [facility] [address] [place] [address] COMPREHENSIVE PANELon 2018 Albumin mass conc 4.3 g/dL Normal 3.4 - 5.0 [facility] [place] Comment on above: Performed By: #### C MP #### [facility] [address] [place] [address] ALP enzyme act/vol 110 U/L Normal 33 - 136 [facility] Comment on above: Performed By: #### C MP #### [facility] [address] [place] [address] ALT enzyme act/vol 19 U/L Normal 7 - 45 [facility] Comment on above: Result Comment: Ellen ents treated with Sulfasalazine may generate falsely decreased results for ALT. Performed By: #### C MP #### [facility] [address] [place] [address] Anion gap molar conc 17 mmol/L Normal 10 - 20 [facility] Comment on above: Performed By: #### C MP #### [facility] [address] [place] [address] AST enzyme act/vol 24 U/L Normal 9 - 39 [facility] Comment on above: Performed By: #### C MP #### [facility] [address] [place] [address] Bilirubin mass conc 0.9 mg/dL Normal 0.0 - 1.2 [facility] Comment on above: Performed By: #### C MP #### [facility] [address] [place] [address] Calcium mass conc 9.8 mg/dL Normal 8.6 - 10.6 [facility] [place] Comment on above: Performed By: #### C MP #### [facility] [address] [place] [address] Chloride molar conc 102 mmol/L Normal 98 - 107 [facility] Comment on above: Performed By: #### C MP #### [facility] [address] [place] [address] Creatinine mass conc 0.96 mg/dL Normal 0.50 - 1.05 [facility] Comment on above: Performed By: #### C MP #### [facility] [address] [place] [address] GFR- AM. 68 mL/min/1.73m2 Normal >60 [facility] Comment on above: Result Comment: CALC ULATIONS OF ESTIMATED GFR ARE PERFORMED USING THE MDRD STUDY EQUATION FOR THE IDMS-TRACEABLE CREATININE METHODS. CLIN CHEM 2007;53:766-72 Performed By: #### C MP #### [facility] [address] [place] [address] GFR-NON AM. 56 mL/min/1.73m2 Abnormal >60 [facility] Comment on above: Performed By: #### C MP #### [facility] [address] [place] [address] Glucose mass conc 94 mg/dL Normal 74 - 99 [facility] [place] Comment on above: Performed By: #### C MP #### [facility] [address] [place] [address] HCO3 molar conc (Bld) 24 mmol/L Normal 21 - 32 [facility] Comment on above: Performed By: #### C MP #### [facility] [address] [place] [address] Potassium molar conc 4.1 mmol/L Normal 3.5 - 5.3 [facility] Comment on above: Performed By: #### C MP #### [facility] [address] [place] [address] Protein mass conc 7.8 g/dL Normal 6.4 - 8.2 [facility] [place] Comment on above: Performed By: #### C MP #### [facility] [address] [place] [address] Sodium molar conc 139 mmol/L Normal 136 - 145 [facility] [place] Comment on above: Performed By: #### C MP #### [facility] [address] [place] [address] Urea nitrogen mass conc 41 mg/dL High 6 - 23 [facility] Comment on above: Performed By: #### C MP #### [facility] [address] [place] [address] RHEUMATOID FACTORon 12-11-19 19 RHEUMATOID FACTOR <10 Normal 0 - 15 [facility] [place] Comment on above: Performed By: #### R F #### [facility] [address] [place] [address] SEDIMENTATION RATE, ERYTHROC YTEon 12-10-2018 SEDIMENTATION RATE, ERYTHROCYTE 55 mm/h High 0 - 30 [facility] Comment on above: Performed By: #### E SRWS #### [facility] [address] [place] [address] URIC ACIDon 12-10-2018 Urate mass conc 7.9 mg/dL High 2.3 - 6.7 [facility] Comment on above: Result Comment: Radha puncture immediately after or during the administration of Metamizole may lead to falsely low results. Testing should be performed immediately prior to Metamizole dosing. Performed By: #### U AMY #### [facility] [address] [place] [address] Vital Signs Date Time Vital Sign Value Performing Clinician Facility 06-09-2025 12:48-0400 Body height 160.[address] Rodrigue Saldaña MD Work Phone: [facility] 12-22-2024 15:09-0400 Body height 160.[address] Rodrigue Saldaña MD Work Phone: [facility] 12-22-2024 15:09-0400 Body mass index (BMI) [Ratio] 45.1 kg/m2 Dr. Rodrigue Saldaña MD Work Phone: [facility] 12-22-2024 15:09-0400 Body weight 115.[address] Rodrigue Saldaña MD Work Phone: [facility] 04-24-2024 11:23-0400 Body height 157.5 cm Duc Payan APRN.TRANSIT OPERATIONS SUPERVISOR Work Phone: [facility] 04-24-2024 11:23-0400 Body mass index (BMI) [Ratio] 46.64 kg/m2 Duc Payan TESTER ELECTRONIC SCALE.TRANSIT OPERATIONS SUPERVISOR Work Phone: [facility] 04-24-2024 11:23-0400 Body weight 115.67 kg Duc Payan TESTER ELECTRONIC SCALE.TRANSIT OPERATIONS SUPERVISOR Work Phone: [facility] Comment on above: Unable to get due to wheelchair 04-24-2024 11:23-0400 Diastolic blood pressure 92 mm[Hg] Duc Payan TESTER ELECTRONIC SCALE.TRANSIT OPERATIONS SUPERVISOR Work Phone: [facility] 04-24-2024 11:23-0400 Heart rate 64 /min Duc Payan TESTER ELECTRONIC SCALE.TRANSIT OPERATIONS SUPERVISOR Work Phone: [facility] 04-24-2024 11:23-0400 Systolic blood pressure 148 mm[Hg] Duc Payan TESTER ELECTRONIC SCALE.TRANSIT OPERATIONS SUPERVISOR Work Phone: [facility] 03-11-2024 11:05-0400 Body height 157.5 cm Delisa Estrella DO Work Phone: [facility] 03-11-2024 11:05-0400 Body mass index (BMI) [Ratio] 46.65 kg/m2 Delisa Estrella DO Work Phone: [facility] 03-11-2024 11:05-0400 Body weight 115.7 kg Delisa Estrella DO Work Phone: [facility] 03-11-2024 11:05-0400 Diastolic blood pressure 64 mm[Hg] Delisa Estrella DO Work Phone: [facility] 03-11-2024 11:05-0400 Heart rate 67 /min Delisa Estrella DO Work Phone: [facility] 03-11-2024 11:05-0400 SaO2% (BldA) [Mass fraction] 95 % Delisa Estrella DO Work Phone: [facility] 03-11-2024 11:05-0400 Systolic blood pressure 117 mm[Hg] Delisa Estrella DO Work Phone: [facility] Encounters Encounter Date Encounter Type Care Provider Facility Start: 07-20-2025 ambulatory Rodrigue DONOVAN Facility:[facility] Start: 07-15-2025 End: 07-15-2025 ambulatory Efnaveed Saldaña Facility:[facility] Start: 06-23-2025 End: 06-23-2025 ambulatory Efnaveed Saldaña Facility:[facility] Start: 06-22-2025 ambulatory Rodrigue DONOVAN Facility:[facility] Start: 05-26-2025 End: 05-26-[address] Rodrigue Saldaña MD Work Phone: -[facility] Start: 05-26-2025 End: 05-26-2025 Patient encounter procedure Regine Morales TELEPHONE SERVICES SALES REPRESENTATIVE-C -[facility] Work Phone: Start: 05-25-2025 ambulatory Rodrigue schulz OLS Facility:[facility] Start: 05-25-2025 [facility] Start: 04-27-2025 ambulatory Rodrigue schulz OLS Facility:[facility] Start: 04-27-2025 Registered Referred Rodrigue VelaJanina [facility] Start: 04-20-2025 Registered Referred Rodrigue VelaJanina [facility] Start: 04-20-2025 End: 04-20-2025 ambulatory Rodrigue DONOVAN Facility:[facility] Start: 03-31-2025 ambulatory Miguel Wooten Facility :[facility] Start: 03-30-2025 End: 03-30-[address] Rodrigue Saldaña MD Work Phone: -[facility] Start: 03-30-2025 End: 03-30-2025 [facility]ed [facility] Start: 03-30-2025 Registered Referred Rodrigue VelaJanina [facility] Start: 03-30-2025 End: 03-30-2025 ambulatory Rodrigue DONOVAN Facility:[facility] Start: 03-10-2025 Non-patient / Non-visit Dr. Candis Jordan MD -[facility] Work Phone: Start: 03-09-2025 ambulatory Rodrigue schulz OLS Facility:[facility] Start: 03-09-2025 [facility] Start: 03-02-2025 ambulatory Efnaveed schulz OLS Facility:[facility] Start: 03-02-2025 Registered Referred Rodrigue VelaJanina [facility] Start: 02-25-2025 ambulatory Efewongbe Oleghe Facili ty:[facility] Start: 02-25-2025 [facility] Start: 02-24-2025 End: 02-24-[address] Rodrigue Saldaña MD Work Phone: -[facility] Start: 02-24-2025 End: 02-24-2025 Patient encounter procedure Regine BUCHANAN -[facility] Work Phone: Start: 02-11-2025 ambulatory Rodrigue schulz OLS Facility:[facility] Start: 02-11-2025 Registered Referred Rodrigue VelaJanina [facility] Start: 02-03-2025 ambulatory Efewongbe Oleghe Facili ty:[facility] Start: 02-03-2025 [facility] Start: 01-28-2025 ambulatory Efewjarred Oleghe Facili ty:[facility] Start: 01-28-2025 Registered Referred Rodrigue VelaJanina [facility] Start: 01-19-2025 End: 01-19-[address] Rodrigue Saldaña MD Work Phone: [facility] Work Phone: Start: 01-19-2025 End: 01-19-2025 [facility]ed [facility] Start: 01-19-2025 [facility] Start: 01-19-2025 End: 01-19-2025 ambulatory Regine Morales OLS Facility:[facility] Start: 01-14-2025 End: 01-14-[address] Rodrigue Saldaña MD Work Phone: [facility] Work Phone: Start: 01-14-2025 End: 01-14-2025 Departed Referred Rodrigue [facility] [facility] Start: 01-14-2025 Registered Referred Rodrigue [facility] Start: 01-14-2025 End: 01-14-2025 ambulatory Rodrigue Saldaña Facility:[facility] Start: 01-09-2025 End: 01-09-2025 Patient encounter procedure Elvi ZHOU -[facility] Work Phone: Start: 01-09-2025 End: 01-09-2025 ambulatory Elvi Perez Facility:[facility] Start: 01-05-2025 End: 01-05-2025 Departed Referred Rodrigue [facility] Start: 01-05-2025 End: 01-05-2025 ambulatory Rodrigue Saldaña [facility] [address] Facility:[facility] Start: 01-02-2025 End: 01-02-[address] Rodrigue Saldaña MD Work Phone: [facility] Work Phone: Start: 01-02-2025 End: 01-02-2025 Departed Referred Rodrigue [facility] Start: 01-02-2025 Registered Referred Rodrigue [facility] Start: 01-02-2025 End: 01-02-2025 ambulatory Rodrigue Saldaña Facility:[facility] Start: 12-31-2024 End: 12-31-[address] Rodrigue Saldaña MD Work Phone: [facility] Work Phone: Start: 12-31-2024 End: 12-31-2024 Departed Referred Rodrigue [facility] Start: 12-31-2024 Registered Referred Rodrigue Saldaña MD -[facility] Start: 12-31-2024 End: 12-31-2024 ambulatory Rodrigue DONOVAN Facility:[facility] Start: 12-22-2024 End: 12-22-[address] Arjun Felton MD -[facility] Work Phone: Start: 12-22-2024 End: 12-22-2024 ambulatory Arjun Felton Facility:[facility] Start: 12-17-2024 End: 12-17-[address] Rodrigue Saldaña MD Work Phone: [facility] Work Phone: Start: 12-17-2024 End: 12-17-2024 Departed Referred Regine Morales NP-C -[facility] Start: 12-17-2024 Registered Referred Regine lees NP-C -[facility] - [facility] Start: 12-17-2024 End: 12-17-2024 ambulatory Regine DONOVAN Facility:[facility] Start: 12-10-2024 End: 12-10-[address] Rodrigue Saldaña MD Work Phone: [facility] Work Phone: Start: 12-10-2024 End: 12-10-2024 Patient encounter procedure Regine Morales NP-C -[facility] Work Phone: Start: 12-08-2024 End: 12-08-2024 Departed Referred Rodrigue Saldaña MD -[facility] Start: 12-08-2024 Registered Referred Rodrigue VelaJanina [facility] Start: 12-08-2024 End: 12-08-2024 ambulatory Rodrigue DONOVAN Facility:[facility] Start: 12-03-2024 End: 12-03-[address] Rodrigue Saldaña MD Work Phone: [facility] Work Phone: Start: 12-03-2024 End: 12-03-2024 Departed Referred Regine Morales TELEPHONE SERVICES SALES REPRESENTATIVE-C -[facility] Start: 12-03-2024 Registered Referred Regine lees TELEPHONE SERVICES SALES REPRESENTATIVE-C -[facility] Start: 12-03-2024 End: 12-03-2024 ambulatory Regine DONOVAN Facility:[facility] Start: 11-19-2024 End: 11-19-[address] Rodrigue Saldaña MD Work Phone: [facility] Work Phone: Start: 11-19-2024 End: 11-19-2024 Departed Referred Regine Morales TELEPHONE SERVICES SALES REPRESENTATIVE-C -[facility] Start: 11-19-2024 Registered Referred Regine lees TELEPHONE SERVICES SALES REPRESENTATIVE-C -[facility] Start: 11-19-2024 End: 11-19-2024 ambulatory Regine DONOVAN Facility:[facility] Start: 11-10-2024 End: 11-10-[address] Rodrigue Saldaña MD Work Phone: [facility] Work Phone: Start: 11-10-2024 End: 11-10-2024 Departed Referred Rodrigue Saldaña MD -[facility] Start: 11-10-2024 Registered Referred Rodrigue VelaJanina - [facility] Start: 11-10-2024 End: 11-10-2024 ambulatory Rodrigue DONOVAN Facility:[facility] Start: 11-05-2024 End: 11-05-[address] Rodrigue Saldaña MD Work Phone: [facility] Work Phone: Start: 11-05-2024 End: 11-05-2024 Departed Referred Regine Morales TELEPHONE SERVICES SALES REPRESENTATIVE-C -[facility] Start: 11-05-2024 End: 11-05-2024 ambulatory Regine DONOVAN Facility:[facility] Start: 10-22-2024 ambulatory Dwaynejessicajarred schulz OLS Facility:[facility] Start: 10-22-2024 Registered Referred Rordigue VelaJanina [facility] Start: 10-20-2024 ambulatory Dwaynejessicajarred schulz OLS Facility:[facility] Start: 10-20-2024 Registered Referred Rodrigue VelaJanina [facility] Start: 10-13-2024 ambulatory Rdorigue Morenoi ty:[facility] Start: 10-13-2024 [facility] Start: 10-08-2024 End: 10-08-2024 [facility] Start: 10-08-2024 End: 10-08-2024 ambulatory Rodrigue Saldaña Facility:[facility] Start: 09-24-2024 End: 09-24-2024 [facility] Start: 09-24-2024 End: 09-24-2024 ambulatory Dwaynejessicajarred Saldaña OLS Facility:[facility] Start: 09-15-2024 ambulatory Dwaynejessicajarred schulz OLS Facility:[facility] Start: 09-15-2024 [facility]istered [facility] Start: 09-02-2024 ambulatory Rodrigue Card ty:[facility] Start: 08-27-2024 ambulatory Arenmaryann schulz OLS Facility:[facility] Start: 08-27-2024 [facility]istered 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 Start: 08-18-2024 Registered Referred Rodrigue Saldaña MD [facility] Start: 08-13-2024 ambulatory Efnaveed schulz OLS Facility:[facility] Start: 08-12-2024 End: 08-12-2024 ambulatory Efnaveed Saldaña Facility:[facility] Start: 08-04-2024 End: 08-04-2024 ambulatory Efnaveed Roye OLS Facility:[facility] Start: 07-31-2024 ambulatory Efnaveed Saldaña Facili ty:[facility] Start: 07-31-2024 ambulatory Efewongmaryann Roye Facili ty:[facility] Start: 07-29-2024 ambulatory Efewongbe Manuelae Facili ty:[facility] Start: 07-29-2024 End: 07-29-2024 ambulatory Efnaveed Roye Facility:[facility] Start: 04-24-2024 End: 04-24-2024 ambulatory DUC PAYAN Facility:[facility] Start: 04-24-2024 End: 04-24-2024 Office outpatient new 45 minutes Duc Payan TESTER ELECTRONIC SCALE.TRANSIT OPERATIONS SUPERVISOR Work Phone: [facility] [place] Comment on above: 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 (Primary Dx); Change in voice; Constipation, unspecified constipation type Start: 03-11-2024 Telephone encounter Delisa rubio DO Work Phone: [facility] Comment on above: appointment today Start: 03-11-2024 End: 03-11-2024 ambulatory DELISA ESTRELLA Facility:[facility] Start: 03-11-2024 End: 03-11-2024 Patient encounter procedure Delisa Estrella DO Work Phone: [facility] Comment on above: Peripheral edema (Pr imary Dx); Primary hypertension; Chronic neck pain; Obesity, Class III, BMI 40-49.9 (morbid obesity) (HCC); Garcia's esophagus with dysplasia; Mixed hyperlipidemia; Anxiety and depression Start: 12-17-2023 Telephone encounter Delisa rubio DO Work Phone: [facility] [place] Comment on above: Appointment (Previou s patient) Start: 12-07-2023 End: 12-07-2023 ambulatory VINOD ROJAS Facility:[facility] Start: 12-06-2023 ambulatory VINOD ROJAS Fac ility:[facility] Start: 12-05-2023 End: 12-05-2023 ambulatory [facility] Work Phone: Start: 12-05-2023 End: 12-05-2023 Departed Referred [facility] Start: 11-23-2023 End: 11-23-2023 ambulatory VINOD ROJAS Facility:[facility] Start: 11-23-2023 End: 11-23-2023 Patient encounter procedure Vinod Rojas MD Work Phone: Ophthalmology Comment on above: Pseudophakia of righ t eye (Primary Dx); Nuclear sclerotic cataract of left eye Start: 11-22-2023 End: 11-22-2023 ambulatory VINOD ROJAS Facility:[facility] Start: 11-20-2023 Telephone encounter Vinod Rojas MD Work Phone: Ophthalmology Comment on above: [facility]; Patient Update Start: 11-16-2023 ambulatory DELISA ESTRELLA Facilit y:[facility] Start: 10-24-2023 End: 10-24-2023 ambulatory [facility] Work Phone: Start: 10-24-2023 End: 10-24-2023 Departed Referred [facility] Start: 10-12-2023 Telephone encounter Vinod Rojas MD Work Phone: Ophthalmology Comment on above: Schedule Surgery Start: 09-18-2023 End: 09-18-2023 ambulatory VINOD ROJAS Facility:[facility] Start: 09-12-2023 End: 09-12-2023 Departed Referred [facility] Start: 07-20-2023 End: 07-20-[address] Aman Ragsdale Work Phone: [facility] Work Phone: Start: 07-20-2023 End: 07-20-[address] Aman Ragsdale Work Phone: [facility] Start: 07-13-2023 End: 07-13-[address] Aman Ragsdale Work Phone: [facility] Work Phone: Start: 07-13-2023 End: 07-13-[address] Aman Ragsdale Work Phone: [facility] Start: 07-13-[address] Aman villafuerte Work Phone: [facility] Start: 07-05-2023 End: 07-05-[address] Aman Ragsdale Work Phone: [facility] Work Phone: Start: 07-05-2023 End: 07-05-[address] Aman Ragsdale Work Phone: [facility] Start: 06-26-2023 End: 06-26-[address] Aman Ragsdale Work Phone: [facility] Work Phone: Start: 06-02-[address] Aman villafuerte Work Phone: [facility], Specimen Work Phone: Start: 05-15-2023 End: 05-15-[address] Aman Ragsdale Work Phone: [facility] Start: 04-30-2023 End: 04-30-[address] Aman Ragsdale Work Phone: [facility] Work Phone: Start: 04-19-2023 End: 04-19-2023 ambulatory [facility] Work Phone: Start: 04-19-2023 End: 04-19-2023 Departed Referred [facility] Start: 01-17-2023 End: 01-17-2023 Departed Referred [facility] Start: 07-20-2022 End: 07-20-2022 ambulatory [facility] Work Phone: Start: 07-20-2022 End: 07-20-2022 Departed Referred [facility] Start: 04-19-2022 End: 04-19-2022 ambulatory [facility] Work Phone: Start: 04-19-2022 End: 04-19-2022 Departed Referred [facility] Start: 01-31-2022 End: 01-31-2022 Departed Referred [facility] Start: 03-28-2021 End: 03-28-2021 Subsequent hospital visit by physician Xr [facility] Comment on above: 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 Rodrgiue Saldaña MD Work Phone: Comment on above: [...] Office Visit [facility] Ophthalmology [address] [place], [place] [id number] Ky Shaw, OD [address] [place] [address] 1 YR F/U for complete eye exam and mac OCT. Ophthalmology Comment on above: 1 YR F/U for complete eye exam and mac O CT. Start: 09-23-2024 End: 09-23-2024 Patient encounter procedure 09/23/2024 2:45 PM EST Office Visit Gastroenterology Anshu [place] [id number] Adrienne Rosario MD [address] [place] [address] esophagus without dysplasia Gastroenterology Anshu Comment on above: esophagus without dysplasia Start: 06-06-2024 Diabetes Screening Diabetes Screening [facility] Start: 05-27-2024 End: 05-27-2024 Patient encounter procedure 05/27/2024 1:45 PM EDT Office Visit [facility] Ophthalmology [address] [place] [address] Ky Shaw, OD [address] [place] [address] Surgery follow up/refraction Ophthalmology Comment on above: Surgery follow up/refraction Start: 05-11-2024 Covid-19 Vaccine () Covid-19 Vaccine () [facility] Start: 05-11-2024 Influenza vaccination [facility] Start: 04-24-2024 End: 07-24-2024 Thyrotropin [Units/volume] in Serum or Plasma THYROID STIMULATING HORMONE Lab Routine Change in voice Constipation, unspecified constipation type Expected: 04/24/2024, Expires: 07/24/2024 [facility] Work Phone: Comment on above: Expected: 04/24/2024, Expires: Start: 04-24-2024 End: 04-24-2024 Patient encounter procedure 04/24/2024 11:20 AM EDT Office Visit Gastroenterology Ansh[facility] [address] [facility] [place] [address] Duc Payan, TESTER ELECTRONIC SCALE.TRANSIT OPERATIONS SUPERVISOR [address] [facility] [place] [address] hx of garcia esophagus Gastroenterology Anshu Comment on above: hx of garcia esophagus Start: 03-17-2024 End: 03-17-2024 Patient encounter procedure 03/17/2024 3:15 PM EDT Office Visit [facility] Ophthalmology [address] [facility] [address] [place] [address] Vinod Rojas MD [address] [place] [address] Surgery follow up/refraction Ophthalmology Comment on above: Surgery follow up/refraction Start: 02-11-2024 Urine microalbumin profile DTaP,Tdap,Td Vaccine (2 - Td or Tdap) [facility] Start: 09-10-2023 Advance Directive Discussion Advance Directive Discussion [facility] Start: 09-10-2023 Behavioral Health Screening Behavioral Health Screening [facility] Start: 09-10-2023 Depression Assessment Depression Assessment [facility] Start: 05-11-2023 Covid-19 Vaccine () Covid-19 Vaccine () [facility] Start: 05-11-2023 Covid-19 Vaccine () Covid-19 Vaccine () [facility] Start: 05-11-2023 Influenza vaccination Influenza Vaccine (#1) [facility] Start: 09-10-2022 Advance Directive Discussion Advance Directive Discussion [facility] Start: 09-10-2022 Depression Assessment Depression Assessment [facility] Start: 2015 RSV Vaccine (1 - 1-dose 75+ series) RSV Vaccine (1 - 1-dose 75+ series) [facility] Start: 2000 RSV Vaccine (1 - 1-dose 60+ series) RSV Vaccine (1 - 1-dose 60+ series) [facility] Start: 1990 Shingrix Vaccine (1 of 2) Shingrix Vaccine (1 of 2) [facility] Start: 1958 Anxiety Screening Anxiety Screening [facility] Start: 1958 Depression Screening Depression Screening [facility] End: 04-24-2025 EGD DIAGNOSTIC EGD DIAGNOSTIC Endoscopy Routine 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 1 Occurrences starting 04/24/2024 until 04/24/2025 [facility] Comment on above: 1 Occurrences starting 04/24/2024 until 04/24/2025 [facility] Immunizations Immunization Date Immunization Notes Care Provider Fa cility 05-29-2021 COVID-19 original vaccine, full dose, monovalent (MODERNA) [facility] 01-08-2021 COVID-19 original vaccine, full dose, monovalent (MODERNA) [facility] 07-27-2020 influenza (HD-IIV4) vaccine, age 65+ yr, high dose, quadrivalent, PF (FLUZONE HIGH-DOSE) [facility] 07-27-2020 influenza virus vacc ine, unspecified formulation [facility] 07-14-2019 influenza, high dose seasonal, preservative-free [facility] 06-01-2018 influenza, high dose seasonal, preservative-free [facility] 07-20-2016 influenza, high dose seasonal, preservative-free [facility] 01-17-2016 pneumococcal conjuga te vaccine, 13 valent [facility] 02-10-2014 tetanus toxoid, redu mamta diphtheria toxoid, and acellular pertussis vaccine, adsorbed [facility] 06-23-2013 influenza virus vacc ine, unspecified formulation [facility] 02-22-2013 pneumococcal polysaccharide vaccine, 23 valent [facility] 06-24-2012 influenza virus vacc ine, unspecified formulation [facility] 08-09-2011 influenza, seasonal, injectable Vinod Fulton MD [facility] Work Phone: 10-27-2009 novel influenza-H1N1 -09, preservative-free, injectable [facility] 07-14-2008 influenza, seasonal, injectable [facility] Payers Date Payer Category Payer Medicaid [id number] 2024 Medicare [id number] 2024 Self-pay [id number] 2024 Medicare [id number] 2022 Private Health Insurance [id number] 2020 Medicare [id number] 1940 Unknown [id number] 2.16. 840.1.348748.3.579.2.356 Private Health Insurance [id number] Unknown [id number] 2.16.8 40.1.640380.3.579.2.462 Unknown [id number] 2.16.8 40.1.358246.3.579.2.462 Unknown [id number] 2.16.8 40.1.932592.3.579.2.462 Unknown [id number] 2.16.8 40.1.372447.3.579.2.462 Unknown [id number] 2.16.8 40.1.565974.3.579.2.462 Unknown [id number] 2.16.8 40.1.208250.3.579.2.462 Unknown [id number] 2.16.8 40.1.119766.3.579.2.462 Unknown [id number] 2.16.8 40.1.895117.3.579.2.462 Unknown [id number] 2.16.8 40.1.684948.3.579.2.462 Unknown [id number] 2.16.8 40.1.575619.3.579.2.462 Unknown [id number] 2.16.8 40.1.397161.3.579.2.462 Unknown [id number] 2.16.8 40.1.413331.3.579.2.462 Unknown [id number] 2.16.8 40.1.254227.3.579.2.462 Unknown [id number] 2.16.8 40.1.066600.3.579.2.462 Unknown [id number] 2.16.8 40.1.089799.3.579.2.462 Unknown [id number] 2.16.8 40.1.821130.3.579.2.462 Unknown [id number] 2.16.8 40.1.934128.3.579.2.462 Unknown [id number] 2.16.8 40.1.014614.3.579.2.462 Unknown [id number] 2.16.8 40.1.935892.3.579.2.462 Unknown [id number] 2.16.8 40.1.875319.3.579.2.462 Unknown [id number] 2.16.8 40.1.049586.3.579.2.462 Unknown [id number] 2.16.8 40.1.291581.3.579.2.462 Unknown [id number] 2.16.8 40.1.288189.3.579.2.462 Unknown [id number] 2.16.8 40.1.667438.3.579.2.462 Unknown [id number] 2.16.8 40.1.026410.3.579.2.462 Unknown [id number] 2.16.8 40.1.923874.3.579.2.462 Unknown [id number] 2.16.8 40.1.153759.3.579.2.462 Unknown [id number] 2.16.8 40.1.914091.3.579.2.462 Unknown [id number] 2.16.8 40.1.327746.3.579.2.462 Unknown [id number] 2.16.8 40.1.993869.3.579.2.462 Unknown [id number] 2.16.8 40.1.933581.3.579.2.462 Unknown [id number] 2.16.8 40.1.580262.3.579.2.462 Unknown [id number] 2.16.8 40.1.937120.3.579.2.462 Unknown [id number] 2.16.8 40.1.538817.3.579.2.462 Unknown [id number] 2.16.8 40.1.857323.3.579.2.462 Unknown [id number] 2.16.8 40.1.141822.3.579.2.462 Unknown [id number] 2.16.8 40.1.428620.3.579.2.462 Unknown [id number] 2.16.8 40.1.617071.3.579.2.462 Unknown [id number] 2.16.8 40.1.714984.3.579.2.462 Unknown [id number] 2.16.8 40.1.664766.3.579.2.462 Unknown [id number] 2.16.8 40.1.620762.3.579.2.462 Unknown [id number] 2.16.8 40.1.097344.3.579.2.462 Unknown [id number] 2.16.8 40.1.119498.3.579.2.462 Unknown [id number] 2.16.8 40.1.364582.3.579.2.462 Unknown [id number] 2.16.8 40.1.513455.3.579.2.462 Unknown [id number] 2.16.8 40.1.679015.3.579.2.462 Unknown [id number] 2.16.8 40.1.041985.3.579.2.462 Unknown [id number] 2.16.8 40.1.978064.3.579.2.462 Unknown [id number] 2.16.8 40.1.267142.3.579.2.462 Unknown [id number] 2.16.8 40.1.130609.3.579.2.462 Social History Date Type Detail Facility Start: 1940 Sex Assigned At Female [facility] Start: 08-18-2016 End: 06-09-2025 Tobacco smoking status MIIS Never smoked tobacco [facility] Start: 08-18-2016 End: 12-07-2023 Tobacco use and exposure Smokeless tobacco non-user [facility] Start: 03-28-2021 End: 08-19-2024 Alcohol intake Ex-drinker (finding) [facility] Start: 03-19-2020 End: 11-23-2023 History of Social function [facility] Start: 03-19-2020 End: 11-23-2023 Social connection and isolation panel [facility] Do you belong to any clubs or organizations such as restorationism groups, unions, fraternal or athletic groups, or school groups? No [facility] Are you now , , , , never or living with a partner? [facility] How hard is it for y ou to pay for the very basics like food, housing, medical care, and heating Not hard at all [facility] Do you feel stress - tense, restless, nervous, or anxious, or unable to sleep at night because your mind is troubled all the time - these days [OSQ] Very much [facility] (I/We) worried kvng er (my/our) food would run out before (I/we) got money to buy more. Never true [facility] Start: 08-18-2016 End: 12-07-2023 Tobacco Comment did try when she was younger [facility] Start: 03-24-2014 Alcohol Comment occasional, 6 glasses of wine per year [facility] Start: 1940 Sex Assigned At Not on file [facility] Start: 02-26-2021 End: 03-28-2021 Exposure to SARS-CoV-2 (event) Not sure [facility] Start: 12-12-2024 End: 12-26-2024 Sex Female (finding) [facility] NEGATED: Highlighted row - - KN-Bknafvkdpaej-Hnj urban Work Phone: Medical Equipment Procedure Code Equipment Code Equipment Original Text Equipment Identifier Dates [id number] nd Implant - [id number] Start: 02-19-2013 Comment on above: Description: pinnacl ealtrx polyethylene acetabular liner+4 neutral 36mm ID 52mm OD 0---Head Fem +5m m 07/23 36mm Hip - [id number] Start: 02-19-2013 0---Cup Actb 52m m Pinn Sect Srs - [id number] Start: 02-19-2013 [id number] Fem 12mm Cmntls Colr - [id number] Start: 02-19-2013 Cca0t0.225 [facility] - [id number] Start: 11-22-2023 Cca0t0.225 [facility] - [id number] Start: 12-06-2023 Functional Status Date Assessment Result Facility NEGATED: Highlighted row Functional performance Functional status health issues are not documented Disease BY-Ipnlnjlrcrxk-Nms urban Work Phone: Mental Status Date Assessment Result Facility NEGATED: Highlighted row Cognitive function [Interpretation] Cognitive status health issues are not documented Disease XP-Ekxuonpbtard-Bdx urban Work Phone: Clinical Notes 05-03-2018 to 07-15-2025 Note Date & Type Note Facility 07-15-2025 Note [facility] Medical Records Department [address] [place] [address] History Physical Exam 07/15/25 1118 MR#: [id number] Acct: [id number] Name: YAA WARD Rep #: [id number] : 1940 85 From: Miguel Wooten DO PCP: Dr. Rodrigue Saldaña MD Status:[facility] Location: [place] [address] HPI - General General Date of Admission: [...] have tums in [facility] room at [facility]. pt last colonoscopy was about 5 years ago as well. She denies any lower GI issues such as constipation, diarrhea or melena. PFSH Medical History Anxiety History of diverticulitis History [...] 07/14/25 Unkn own (more content not included)... [facility] 12-22-2024 Evaluation note Diagnosis Onset Date Resolution Left shoulder pain acute December 22, 2024 3:08pm Primary osteoarthritis, left shoulder acute December 22, 2024 3:08pm [facility] Work Phone: 1(682) 375-983104-14-2025 Evaluation note* Diagnosis Onset Date Resolution Status Admit Date Left shoulder pain acute December 22, 2024 3:08pm Primary osteoarthritis, left shoulder acute December 22, 2024 3:08pm Garcia's esophagus chronic January 092024 3:24pm [facility] Work Phone: 1(423) 703-650412-10-2024 Instructions* Patient Instructions* Ky Shaw, OD - 08/19/2024 3:04 PM EST Continue Preservision daily Call with any sudden increase in flashes/floaters or changes to peripheral vision documented in [facility] encounterA[facility]2024 NoteHNO ID: [id number] Author: KY SHAW OD Service: ? Author Type: POWDER CUTTING OPERATOR Type: Progress Notes Filed: 08/19/2024 15:42 [...] changes to peripheral vision (flashes/floaters, etc.) Ky Shaw OD August 19, 2024 3:03 [facility]12-10-2024 History of Present illness Narrative* Ky Shaw, [...] changes to peripheral vision (flashes/floaters, etc.) Ky Shaw OD August 19, 2024 3:03 PM documented in this encounterA[facility]08-15-[facility] Instructions* Patient Instructions* Duc Payan APRN.CNP - 04/24/2024 11:43 AM EDT - recommend ENT referral for voice changes documented in this encounterA[facility]08-15-2024 NoteHNO ID: [id number] Author: DUC PAYAN APRN.CNP Service: ? Author [...] for internal providers or letter via the [employer] for external providers. HPI: Yaa [...] dysfunctional uterine bleeding Allergies: ALLERGIES Allergen Reactions Mhlblae-Sxn-Dxc Red* Other: See Comments Lethargic, and muscle [...] 1 tablet by mouth once daily. vit C,M-Bv-iwrnk-lutein-zeaxan (PRESERVISION AREDS-2) 250-90-40-1 mg Take by mouth. [...] affected area twice daily. (more content not included)...[facility]08-15-2024 History of Present illness Narrative* Duc Payan APRN.TRANSIT OPERATIONS SUPERVISOR - 04/24/2024 11:21 AM EDT Images from [...] for internal providers or letter via the [employer] for external providers. HPI: Yaa [...] Comment: Hip replacement, total left 05/25/2005: ARTHRP EVERETTE CONDYLE&PLATU MEDIAL&LAT COMPARTMENTS Comment: left total knee [...] dysfunctional uterine bleeding Allergies: ALLERGIES Allergen Reactions Cpaangs-Fti-Zji Red* Other: See Comments Lethargic, and muscle [...] 1 tablet by mouth once daily. vit C,U-Qd-siqph-lutein-zeaxan (PRESERVISION AREDS-2) 250-90-40-1 mg Take by mouth. [...] daily. (Patient not taking: Reported on 03/11/2024) Anthony-3 Fatty Acids-Vitamin E (FISH OIL) 1,000 mg [...] 24, 2024 12:16 PM documented in this encounterA[facility]07-[facility]24 Telephone encounter Note * Telephone Encounter [...] Saldaña it she wishes. Delisa Estrella DO [facility]07-03-2024 Miscellaneous Notes* Telephone Encounter - Delisa [...] - 03/11/2024 10:04 AM EDT Saba with [facility] is calling Delisa Estrella DO today with concern regarding appointment today. Patient lives in a facility right now and the strategic sourcing manager of the facility is calling and [...] of symptoms: N/A Any questions, please call [phone] Closing statement: Results or non-symptom based questions: Thank you for calling [facility], your call will be returned within the next business day. Ariela Saenz documented in this encounterAultman [facility]07-02-2024 Instructions* Patient Instructions* Delisa Estrella DO - 03/11/2024 1:00 PM EDT Discussed with Saba (your nursing emergency crew supervisor at [facility] the following recommendations: - continue care with Dr Saldaña/NEERAJ at [facility]. - would recommend Dr Saldaña/NEERAJ evaluation of leg swelling very soon. Give consideration to cardiology evaluation - consider cutting back on carbohydrates at meals. Consider more protein intake at meals. 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 One close place to your living facility is: [facility] in [place] Dr Rosario documented in this encounterAultman [facility]07-02-2024 History of Present illness Narrative* Delisa Estrella DO - 03/11/2024 10:20 AM EDT Yaa Ward is a 83 year old female presenting for evaluation Patient is wishing to reestablish care-she recently moved to [facility] Last office visit with me was on 03/01/2021 Pt currently lives at an assisted living facility " [facility]" in [place] where she follows with a TRANSIT OPERATIONS SUPERVISOR and with PCP Dr Saldaña. I have [...] Dr Rojas. Previous PCP Dr Ragsdale (in [place]) retired 2 yrs ago New PCP Dr Saldaña at [facility] States has only met the physician on time. Follows most of the time with NEERAJ Noa at [facility] Services: at her Assisted living facility - [...] Protonix 40 mg daily dose Since in [place] she has not seen a GI as advised that there is no GI provider in [place]. After discussion I did place a call and found closest GI provider in [facility] in [place] Phone number: [phone] Rosario Pt aware and will try to schedule an appt. Pt is aware that I did speak with nursing supervisore Saba at [facility]. DENIES: fever, chills, weight changes, night sweats, [...] 1 tablet by mouth once daily. vit C,A-Vx-zabhf-lutein-zeaxan (PRESERVISION AREDS-2) 250-90-40-1 mg Take by mouth. [...] Take 2,000 Units by mouth once daily. Anthony-3 Fatty Acids-Vitamin E (FISH OIL) 1,000 mg cap Take 1 capsule by mouth once daily. LUTEIN ORAL Take by mouth. ALLERGIES: ALLERGIES Allergen Reactions Ejcqcme-Ywa-Aip Red* Other: See Comments Lethargic, and muscle [...] discussed with pt and with Saba at [facility] my advise that I would advise pt to follow up her her PCP at [facility] re: peripheral edema despite her HCTZ 50 mg daily dose. Would strongly consider provider to consider manager auto re: peripheral edema . Saba agrees to [...] ICD9: 530.85, ICD10: K22.719 - spoke with [facility] - strongly encouraged GI consult. Spoke with pt and Saba at [facility] facility and related she'd discuss with PCP Dr Saldaña. 6. Mixed hyperlipidemia - ICD9: 272.2, ICD10: E78.2 7. Anxiety and depression - ICD9: 300.00, 311, ICD10: F41.9, F32.A - follow up with psychiatry dept as planned and med as prescribed. I spent a total of >60 minutes on the date of the service which included preparing to see the patient, popj-kw-hfjj patient care, completing clinical documentation, obtaining and/or reviewing separately obtained history, performing a medically appropriate examination, counseling and educating the patient/family/caregiver, ordering medications, tests, or procedures, communicating with other HCPs Nursing emergency crew supervisor Saba at [facility] and also [facility] in [place](notseparately reported), independently interpreting results (not separately reported), communicating re sults to the patient/family/caregiver, and care coordination (not separately reported). Return to office as needed. Strongly encouraged pt to follow up with PCP Dr Saldaña re: peripheral edema lower extremities and to follow up on Garcia's esophagus spoke to nursing emergency crew supervisor at [facility] re: Saba states she will speak with Dr Saldaña and physician assistance regarding. . Portions of this note have been composed using voice recognition and may contain americanization teacher errors Delisa Estrella DO documented in this encounterAultman [facility]07-02-2024 NoteHNO ID: [id number] Author: DELISA ESTRELLA DO Service: ? Author Type: Physician Type: Progress Notes Filed: 03/16/2024 21:28 Note Text: Yaa Ward is a 83 year old female presenting for evaluation Patient is wishing to reestablish care-she recently moved to [facility] Last office visit with me was on 03/01/2021 Pt currently lives at an assisted living facility " [facility]" in [place] where she follows with a TRANSIT OPERATIONS SUPERVISOR and with PCP Dr Saldaña. I have [...] Dr Rojas. Previous PCP Dr Ragsdale (in [place]) retired 2 yrs ago New PCP Dr Saldaña at [facility] States has only met the physician on time. Follows most of the time with NEERAJ Latham at [facility] Services: at her Assisted living facility [...] Protonix 40 mg daily dose Since in [place] she has not seen a GI as advised that there is no GI provider in [place]. After discussion I did place a call and found closest GI provider in [facility] in [place] Phone number: [phone] Rosario Pt aware and will try to schedule an appt. Pt is aware that I did speak with nursing supervisore Saba at [facility]. DENIES: fever, chills, weight changes, night sweats, [...] once daily. pregabalin (LYRICA (more content not included)...[facility] 03-11-2024 Telephone encounter Note* Telephone Encounter - Ariela Saenz - 03/11/2024 10:04 AM EDT Saba with [employer] is calling Delisa Estrella DO today with concern regarding appointment today. Patient lives in a facility right now and the strategic sourcing manager of the facility is calling and [...] of symptoms: N/A Any questions, please call [phone] Closing statement: Results or non-symptom based questions: Thank you for calling [facility], your call will be returned within the next business day. Ariela Saenz [facility]04-11-2024 Miscellaneous Notes* Telephone Encounter - Kay Cummins - 12/20/2023 8:43 AM EDT Patient called back and is scheduled on 03/11/24. * Telephone Encounter - Kay Cummins - 12/19/2023 12:[address] Estrella advised she would accept patient back to re-establish care. Tried to reach patient at both numbers listed in Epic. Was connected with [facility] and advised that we need to contact Ariadna at [phone], who handles all patient scheduling and transport. [...] calling: self Call patient at: at home [phone] (home) [phone] (cell) Was an appointment scheduled: No Closing statement: Results or non-symptom based questions: Thank you for calling [facility], your call will be returned within the next business day. Reena Benitez Pss documented in this encounterA[facility]03-29-2024 NoteHNO ID: [id number] Author: VINOD ROJAS MD Service: ? Author [...] Vinod Rojas M.D. December 07, 2023 11:14 [facility]03-15-2024 NoteHNO ID: [id number] Author: VINOD ROJAS MD Service: ? Author [...] Vinod Rojas M.D. November 23, 2023 9:55 [facility]03-15-2024 History of Present illness Narrative * Vinod [...] 23, 2023 9:55 AM documented in this encounterA[facility]03[facility] Miscellaneous Notes* Telephone Encounter - Patience Lin - 11/20/2023 4:58 PM EDT [facility] where Pt resides asked that any RX or speical instruction and rX orders post op instructions to be faxed to them at [phone] to her floor which is [facility]: (To contact the nurse ph no is ) documented in this encounterA[facility]02-02-2024 Miscellaneous Notes* Telephone Encounter - Kelsey Garza - 10/12/2023 5:03 PM EST Taken care of. spoke to defense travel administrator. * Telephone Encounter - Estefany Justice Kelsey - 10/12/2023 11:07 AM EST [facility] returned call to set up surgery. Please call again at [phone] documented in this encounterA[facility]01-09-2024 NoteHNO ID: [id number] Author: VINOD ROJAS MD Service: ? Author [...] Vinod Rojas M.D. September 18, 2023 11:17 [facility]09-07-2021 NoteHNO ID: [id number] Author: Baldo Whitney MD Service: General Internal [...] MD DATE: May 17, 2021 TIME: 2:58 [facility]09-07-2021 NoteHNO ID: [id number] Author: Nikkie Chery RN Service: Care Management Author Type: Registered Nurse Type: Care Mgt Progress Note Filed: 05/17/2021 12:49 PM Note Text: CARE MANAGEMENT DISCHARGE NOTE SERVICE DATE: 05/17/2021 SERVICE TIME: 12:47 LOS: 0 days Admission Date: 05/15/2021 DISCHARGE ARRANGEMENT (list agency and phone number) Discharge Arrangement: snf facility Was an expedited discharge program used?: [...] and plan for meeting these needs: [facility] HANDOFF COMMUNICATION: Handoff to: Other Caregiver Other Caregiver Name/Phone: [facility] Maria TRANSPORTATION ARRANGEMENTS: Transportation Arrangements: Ambulance/[place] Transportation Agency and Phone #:: [facility] [phone] Date of Trip: 05/17/21 Time of Trip: 1600 Type of Service: BLS Non-emergency Is Patient Medicaid Pending?: No Discussion of financial coverage occurred with: PRESTON Wire Transfer Clerk Location: [facility] Destination[facility] [place] Financial Care Management Responsibility: None ADDITIONAL CONTACT RESOURCES: Discharge Information Row Name Admission (Current) from 05/15/2021 in [facility] Observation Unit Transportation Agency MMT [facility] [place] [facility] Agency [facility] [place] Caregiver is ready, willing and able to meet the patient's needs as recommended by the inter-professional team:: Yes Does the patient have an acute stroke diagnosis, or has the patient had a stroke during this admission?: No Needs Prior to Discharge: Ready for Discharge;Discharge Transportation Transportation Arrangements: Ambulance/[place] Transportation Agency and Phone #:: [facility] [phone] Date of Trip: 05/17/21 Time of Trip: 1600 Type of Service: BLS Non-emergency Is Patient Medicaid Pending?: No Discussion of financial coverage occurred with: POA Wire Transfer Clerk Location: [facility] Destination: [facility] [place] Financial Care Management Responsibility: None IMM Follow Up Copy Given: No Reason: Other: See Comment (OBSERVATION) Patient discharged to [facility], clinical updates sent. Pt's sonMickey was called and made aware of time of transfer. Summary of Care routed to providers. MMT will pick pulling machine tender patient at 16:00. SIGNATURE: Nikkie Chery RN PATIENT NAME: Yaa Ward DATE: May 17, 2021 TIME: 12:46 PM PAGER/CONTACT #: [phone] [facility]09-07-2021 NoteHNO ID: [id number] Author: Nikkie Chery RN Service: Care Management Author Type: Registered Nurse Type: Care Mgt Progress Note Filed: 05/17/2021 10:40 AM Note Text: CARE MANAGEMENT PROGRESS NOTE SERVICE DATE: 05/17/2021 SERVICE TIME: 10:38 LOS: 0 days [place] of Choice Given: Yes Level of Care Discussed: Senior Living Facility Financial Disclosure Provided: No Provider List: Senior Living Facility Provider list within the patient's requested geographic area shared with the patient/family: Yes within: 5 miles of zip code: [address] Quality and resource use metrics shared with the patient that are relevant to the patient's goals of care and treatment preferences:: Yes Metrics: Skin Integrity;Potentially Preventable 30-day Post Discharge Readmission Rates;Functional Status;Discharge to Community Needs Prior to Discharge: To Be Determined;Precertification;Accepting Facility Spoke with pt's son, Bill regarding facility choices for SNF placement. [facility] Referrals sent. [facility] upon discharge, facility will start precert. [facility] tasked for precert/7000. CM will follow. 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 Last discharge within 30 days: No Advance Directive: Current Advance Directive: Health Care Power of Oil [employer] Rough[employer] In Chart: Yes Up To Date and [...] Completely I feel financially burdened by my hlg-bi-jhkicb expenses for my prescription medication:: 0 - Disagree Completely Risk Score: 0 Patient is categorized as: Low risk < 2 Are you interested in bedside delivery of your medications? No Is Patient Psychosocially Complex?: No ASSESSMENT AND PLAN: Medical Needs: Medical Needs: None Psychosocial Needs: Psychosocial Needs: None FREEDOM OF CHOICE EXPLAINED: [place] of Choice Given: Yes Level of Care Discussed: Senior Living Facility Financial Disclosure Provided: No Provider List: Senior Living Facility Provider list within the patient's requested geographic area shared with the patient/family: Yes within: 25 miles of zip code: ([address]) Quality and resource use metrics shared with the patient that are relevant to the patient's goals of care and treatment preferences:: Yes Metrics: Skin Integrity;Functional Status;Potentially Preventable 30-day Post Discharge Readmission Rates POTENTIAL TRANSITION PLANS Senior Living Facility/Intermediate Care Facility Patient went home from a previous hopital stay and now back in the hispital. Spoke with DIL and SNF provider list emailed to [email or web address]. SIGNATURE: Aman Robertson RN PATIENT NAME: Yaa Ward DATE: 2021 TIME: 10:26 AM PAGER/CONTACT #: [phone] Note HNO ID: [id number] Author: Kathy Delvalle RN Service: Care Management [...] 15, 2021 TIME: 12:27 PM PAGER/CONTACT #: [phone] NoteHNO ID: [id number] Author: Mika Borjas MD Service: Hospital Medicine Author Type: Physician Type: Progress Notes Filed: 05/14/2021 2:02 PM Note Text: DEPARTMENT OF HOSPITAL MEDICINE PROGRESS NOTE SERVICE DATE: 05/14/2021 SERVICE TIME: 1:56 PM Hospital Medicine/Primary Attending: Mika Borjas MD NIGHT AND WEEKEND COVERAGE: Patient admitted to 4. Please page [phone] from 7a-5p for patient issues. From 5p-7am, page the night hospitalist on pager [phone] for patient issues. Subjective INTERVAL HPI: Patient [...] Prophylaxis: VTE prophylaxis appropriate Disposition: [facility] with [facility] Plan of care discussed with: Provider, Patient and RN SIGNATURE: Mika Borjas MD PATIENT NAME: Yaa Ward DATE: May 14, 2021 TIME: 1:56 PM etx [id number] P. [facility] NoteHNO ID: [id number] Author: Genoveva Porras RN Service: Care Management [...] 13, 2021 TIME: 2:56 PM PAGER/CONTACT #: [phone] NoteHNO ID: [id number] Author: Toby Shore MD Service: Hospital Medicine Author Type: Physician Type: Progress Notes Filed: 05/13/2021 5:55 PM Note Text: DEPARTMENT OF HOSPITAL MEDICINE PROGRESS NOTE SERVICE DATE: 05/13/2021 SERVICE TIME: 8:59 Am Hospital Medicine/Primary Attending: MD Dr Clint Chavira will be assuming care in Am NIGHT AND WEEKEND COVERAGE: [place] COVERAGE: Patient admitted to Hc 4 From 07 - 163, please contact pager [phone] for patient issues. From 163 - 699, please contact the Night Hospitalist on pager [phone] for patient issues. Subjective INTERVAL HPI: abd [...] May 13, 2021 TIME: 5:55 PM etx [id number] P. [facility]09-02-2021 NoteHNO ID: [id number] Author: Toby Shore MD Service: Hospital Medicine Author Type: Physician Type: Progress Notes Filed: 05/12/2021 3:54 PM Note Text: DEPARTMENT OF HOSPITAL MEDICINE PROGRESS NOTE SERVICE DATE: 05/12/2021 SERVICE TIME: 3:39 PM Hospital Medicine/Primary Attending: Toby Shore MD NIGHT AND WEEKEND COVERAGE: [facility] COVERAGE: Patient admitted to 4 From 699 - [phone], please contact pager [phone] for patient issues. From 1630 - 699, please contact the Night Hospitalist on pager [phone] for patient issues. Subjective INTERVAL HPI: abd [...] May 12, 2021 TIME: 3:39 PM etx [id number] P. 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 Advance Directive: Current Advance Directive: Health Care Power of Oil [employer] Roughneck In Chart: Yes Up To Date and Valid: No Quality Assurance Tech Attempted to Assist with AD Completion: Yes [...] Completely I feel financially burdened by my nyi-hz-zuipuf expenses for my prescription medication:: 0 - [...] 2021 TIME: 10:12 AM PAGER/CONTACT #: Office [phone] Cell/Text [phone] History of Present illness Narrative* Ina Bustillo, [...] PERIPHERAL IV DATA: Not applicable SIGNED BY: Ina Bustillo RT(R) March 28, 2021 12:12 PM documented in this encounterA[facility] History of Past illness Narrative* Problem Noted Date Diagnosed Date Resolved Date Sacroiliitis 05/03/2018 02/17/2021 Overview: Added automatically from request for surgery [id number] Benign essential HTN 07/29/2015 021 Mixed hyperlipidemia [...] of this encounter (statuses as of 07/15/2023) [facility]08-24-2018 History of Past illness Narrative* Problem Noted Date Diagnosed Date Resolved Date Sacroiliitis 05/03/2018 02/17/2021 Overview: Added automatically from request for surgery [id number] Benign essential HTN 07/29/2015 021 Mixed hyperlipidemia [...] of this encounter (statuses as of 10/13/2023) [facility]08-24-[facility] History of Past illness Narrative* Problem Noted Date Diagnosed Date Resolved Date Sacroiliitis 05/03/2018 02/17/2021 Overview: Added automatically from request for surgery [id number] Benign essential HTN 07/29/2015 021 Mixed hyperlipidemia [...] of this encounter (statuses as of 11/23/2023) [facility]08-24-[facility] History of Past illness Narrative* Problem Noted Date Diagnosed Date Resolved Date Sacroiliitis 05/03/2018 02/17/2021 Overview: Added automatically from request for surgery [id number] Benign essential HTN 07/29/2015 021 Mixed hyperlipidemia [...] of this encounter (statuses as of 11/28/2023) [facility]08-[facility] History of Past illness Narrative* Problem Noted Date Diagnosed Date Resolved Date Sacroiliitis 05/03/2018 02/17/2021 Overview: Added automatically from request for surgery [id number] Benign essential HTN 07/29/2015 021 Mixed hyperlipidemia [...] of this encounter (statuses as of 12/20/2023) [facility] noteNo assessment information availableWJ.W. Ruby Memorial Hospital Work Phone: Evaluation note* Diagnosis Inflammatory arthritis Unspecified inflammatory polyarthropathy documented in this encounter [facility]* Diagnosis Pseudophakia of right eye- Primary Lens replaced by other means Nuclear sclerotic cataract of left eye Senile nuclear sclerosis Nuclear senile cataract of both eyes documented in this encounter [facility] note* Diagnosis Peripheral edema- Primary Edema Primary hypertension Unspecified essential hypertension Chronic neck pain Cervicalgia Obesity, Class III, BMI 40-49.9 (morbid obesity) ([facility]) Morbid obesity Garcia's esophagus with dysplasia Garcia's esophagus Mixed hyperlipidemia Anxiety and depression Dysthymic disorder documented in this encounter [facility] note* Diagnosis 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- Primary Garcia's esophagus Change in voice Other voice and resonance disorders Constipation, unspecified constipation type documented in this encounter [facility] note* Diagnosis 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 Lens replaced by other means documented in this encounter [facility]* Name Dates Details Instructions not documented [facility] Work Phone: Reason for referral (narrative)* Outpatient Procedure (Routine) - New Request Specialty Diagnoses / Procedures Referred By Denae chu Referred To Contact [facility] Diagnoses 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 Procedures EGD DIAGNOSTIC ESOPHAGOGASTRODUODENOS COPY TRANSORAL DIAGNOSTIC Duc Payan APRN.TRANSIT 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 Expl anation Advance Directive(s) 11/06/2023 11:37 AM Advance Directive(s) 02/19/2013 6:16 AM Chief Complaint and Reason for Visit Chief Complaint PRISON LAB WOR K PRISON LABWORK Chief Complaint PRISON LABWORK Chief Complaint PRISON LABWORK NEW CONCERN PRISON LAB WORK PRISON LABWORK PRISON LABWORK Chief Complaint PRISON LABWORK NEW CONCERN PRISON LAB WORK PRISON LABWORK ANNUAL EXAM PRISON LABWORK PRISON LABWORK Chief Complaint PRISON LABWORK NEW CONCERN PRISON LAB WORK PRISON LABWORK ANNUAL EXAM PRISON LABWORK PRISON LABWORK PRISON LABWORK Chief Complaint PRISON LABWORK PRISON LABWORK LABWORK LABWORK Chief Complaint LABWORK LABWORK PRISON LAB WORK Chief Complaint Admit Date LABWORK August 18, 2024 5 :00am LABWORK August 27, 2024 5:00am PRISON LAB WORK September 15, 2024 5:00am PRISON LAB WORK September 24, 2024 5:00am PRISON LAB WORK October 08, 2024 5:00am PRISON LAB WORK October 13, 2024 5:00am LABWORK October 20, 2024 5:00am PRISON LAB WORK October 22 5:00am PRISON LAB WORK November 05 5:00am LABWORK November 10, 2024 5:00 am PRISON LAB WORK November 19, 2024 5 :00am Chief Complaint Admit Date PRISON LAB WORK September 15, 2024 5:00am PRISON LAB WORK September 24, 2024 5:00am PRISON LAB WORK October 08, 2024 5:00am PRISON LAB WORK October 13, 2024 5:00am LABWORK October 20, 2024 5:00am PRISON LAB WORK October 22 5:00am PRISON LAB WORK November 05 5:00am LABWORK November 10, 2024 5:00 am PRISON LAB WORK November 19, 2024 5 :00am PRISON LAB WORK December 03, 2024 5 :00am LEFT SHOULDER December 22, 2024 3:0 8pm Room 3 December 22, 2024 3:1 5pm Reason for Visit Admit Date Left shoulder pain December 22, 2024 3:0 8pm Primary osteoarthritis, left shoulder Ap ril 2024 3:08pm Chief Complaint Admit Date PRISON LAB WORK September 24, 2024 5:00am PRISON LAB WORK October 08, 2024 5:00am PRISON LAB WORK October 13, 2024 5:00am LABWORK October 20, 2024 5:00am PRISON LAB WORK October 22 5:00am PRISON LAB WORK November 05 5:00am LABWORK November 10, 2024 5:00 am PRISON LAB WORK November 19, 2024 5 :00am PRISON LAB WORK December 03, 2024 5 :00am PRISON LABWORK December 08, 2024 5: 00am PRISON LAB WORK December 17, 2024 5: 00am LEFT SHOULDER December 22, 2024 3:0 8pm Room 3 December 22, 2024 3:1 5pm PRISON LAB WORK January 05, 2025 4 :00am GERD, DYSPHAGIA January 09, 2025 3:24pm Reason for Visit Admit Date Left shoulder pain December 22, 2024 3:0 8pm Primary osteoarthritis, left shoulder Ap ril 2024 3:08pm Garcia's esophagus January 09, 2025 3:24pm Chief Complaint Admit Date PRISON LAB WORK September 24, 2024 5:00am PRISON LAB WORK October 08, 2024 5:00am PRISON LAB WORK October 13, 2024 5:00am LABWORK October 20, 2024 5:00am PRISON LAB WORK October 22 5:00am PRISON LAB WORK November 05 5:00am LABWORK November 10, 2024 5:00 am PRISON LAB WORK November 19, 2024 5 :00am PRISON LAB WORK December 03, 2024 5 :00am PRISON LABWORK December 08, 2024 5: 00am NEW CONCERN December 10, 2024 4:22 pm PRISON LAB WORK December 17, 2024 5: 00am LEFT SHOULDER December 22, 2024 3:0 8pm Room 3 December 22, 2024 3:1 5pm PRISON LAB WORK January 05, 2025 4 :00am GERD, DYSPHAGIA January 09, 2025 3:24pm Chief Complaint Admit Date PRISON LAB WORK September 24, 2024 5:00am PRISON LAB WORK October 08, 2024 5:00am PRISON LAB WORK October 13, 2024 5:00am LABWORK October 20, 2024 5:00am PRISON LAB WORK October 22 5:00am PRISON LAB WORK November 05 5:00am LABWORK November 10, 2024 5:00 am PRISON LAB WORK November 19, 2024 5 :00am PRISON LAB WORK December 03, 2024 5 :00am PRISON LABWORK December 08, 2024 5: 00am NEW CONCERN December 10, 2024 4:22 pm PRISON LAB WORK December 17, 2024 5: 00am LEFT SHOULDER December 22, 2024 3:0 8pm Room 3 December 22, 2024 3:1 5pm LABWORK December 31, 2024 5:0 0am PRISON LAB WORK January 05, 2025 4 :00am GERD, DYSPHAGIA January 09, 2025 3:24pm Chief Complaint Admit Date PRISON LAB WORK October 08, 2024 5:00am PRISON LAB WORK October 13, 2024 5:00am LABWORK October 20, 2024 5:00am PRISON LAB WORK October 22 5:00am PRISON LAB WORK November 05 5:00am LABWORK November 10, 2024 5:00 am PRISON LAB WORK November 19, 2024 5 :00am PRISON LAB WORK December 03, 2024 5 :00am PRISON LABWORK December 08, 2024 5: 00am NEW CONCERN December 10, 2024 4:22 pm PRISON LAB WORK December 17, 2024 5: 00am LEFT SHOULDER December 22, 2024 3:0 8pm Room 3 December 22, 2024 3:1 5pm LABWORK December 31, 2024 5:0 0am LABWORK January 02, 2025 5:0 0am PRISON LAB WORK January 05, 2025 4 :00am GERD, DYSPHAGIA January 09, 2025 3:24pm Chief Complaint Admit Date PRISON LAB WORK October 13, 2024 5:00am LABWORK October 20, 2024 5:00am PRISON LAB WORK October 22 5:00am PRISON LAB WORK November 05 5:00am LABWORK November 10, 2024 5:00 am PRISON LAB WORK November 19, 2024 5 :00am PRISON LAB WORK December 03, 2024 5 :00am PRISON LABWORK December 08, 2024 5: 00am NEW CONCERN December 10, 2024 4:22 pm PRISON LAB WORK December 17, 2024 5: 00am LEFT SHOULDER December 22, 2024 3:0 8pm Room 3 December 22, 2024 3:1 5pm LABWORK December 31, 2024 5:0 0am LABWORK January 02, 2025 5:0 0am PRISON LAB WORK January 05, 2025 4 :00am GERD, DYSPHAGIA January 09, 2025 3:24pm LABWORK January 14, 2025 5:00am Chief Complaint Admit Date PRISON LAB WORK November 05 5:00am LABWORK November 10, 2024 5:00 am PRISON LAB WORK November 19, 2024 5 :00am PRISON LAB WORK December 03, 2024 5 :00am PRISON LABWORK December 08, 2024 5: 00am NEW CONCERN December 10, 2024 4:22 pm PRISON LAB WORK December 17, 2024 5: 00am LEFT SHOULDER December 22, 2024 3:0 8pm Room 3 December 22, 2024 3:1 5pm LABWORK December 31, 2024 5:0 0am LABWORK January 02, 2025 5:0 0am PRISON LAB WORK January 05, 2025 4 :00am GERD, DYSPHAGIA January 09, 2025 3:24pm LABWORK January 14, 2025 5:00am PRISON LAB WORK January 19, 2025 5:0 0am PRISON LAB WORK January 28, 2025 5:0 0am Chief Complaint Admit Date PRISON LAB WORK December 03, 2024 5 :00am PRISON LABWORK December 08, 2024 5: 00am NEW CONCERN December 10, 2024 4:22 pm PRISON LAB WORK December 17, 2024 5: 00am LEFT SHOULDER December 22, 2024 3:0 8pm Room 3 December 22, 2024 3:1 5pm LABWORK December 31, 2024 5:0 0am LABWORK January 02, 2025 5:0 0am PRISON LAB WORK January 05, 2025 4 :00am GERD, DYSPHAGIA January 09, 2025 3:24pm LABWORK January 14, 2025 5:00am PRISON LAB WORK January 19, 2025 5:0 0am PRISON LAB WORK January 28, 2025 5:0 0am PRISON LAB WORK February 03, 2025 5:0 0am LABWORK February 11, 2025 5:00a m New Concern February 24, 2025 4:18 pm PRISON LAB WORK February 25, 2025 4: 00am PRISON LAB WORK March 02, 2025 5: 00am PRISON LAB WORK March 09, 2025 7: 30pm Chief Complaint Admit Date LABWORK February 11, 2025 5:00a m New Concern February 24, 2025 4:18 pm PRISON LAB WORK February 25, 2025 4: 00am PRISON LAB WORK March 02, 2025 5: 00am PRISON LAB WORK March 09, 2025 7: 30pm LABWORK March 30, 2025 5:00 am LABWORK April 20, 2025 5: 00am PRISON LAB WORK April 27, 2025 5:00am PRISON LAB WORK May 25 5:00am NEW CONCERN May 26, 2025 6:04pm Chief Complaint Admit Date New Concern February 24, 2025 4:18 pm PRISON LAB WORK February 25, 2025 4: 00am PRISON LAB WORK March 02, 2025 5: 00am PRISON LAB WORK March 09, 2025 7: 30pm LABWORK March 30, 2025 5:00 am LABWORK April 20, 2025 5: 00am PRISON LAB WORK April 27, 2025 5:00am PRISON LAB WORK May 25 5:00am NEW CONCERN May 26, 2025 6:04pm Additional Source Comments INFORMATION SOURCE (unrecogn ized section and content) DATE CREATED AUTHOR 12/13/2018 [facility] DATE CREATED AUTHOR AUTHOR'S ORGANIZ ATION 12/16/2018 [facility] DATE CREATED AUTHOR AUTHOR'S ORGANIZ ATION 2021 [facility] DATE CREATED AUTHOR AUTHOR'S ORGANIZ ATION 05/18/2021 [facility] DATE CREATED AUTHOR AUTHOR'S ORGANIZ ATION 08/22/2024 [facility] DATE CREATED AUTHOR AUTHOR'S ORGANIZ ATION 07/22/2025 [facility] Goals (unrecognized section and content) Goals may [...] 19, 2024 End: November 19, 2024 Regine DONOVAN TELEPHONE SERVICES SALES REPRESENTATIVE-C Attending Provider Active Start: November 19, 2024 [...] End: December 10, 2024 Regine Morales NP TELEPHONE SERVICES SALES REPRESENTATIVE-C Attending Provider Active Start: December 10, 2024 End: December 10, 2024 Team Status: Inactive Member Role Status Dates Dr. Rodrigue Saldaña MD Primary Care Provider Active Start: December 17, 2024 End: December 17, 2024 Regine DONOVAN TELEPHONE SERVICES SALES REPRESENTATIVE-C Attending Provider Active Start: December 17, 2024 [...] Inactive Member Role Status Dates Dr. Aman Ragdsale MD Primary Care Provider Active Rodrigue DONOVAN MD Attending Provider Active Team Status: Inactive Member Role Status Dates Dr. Aman Ragsdale MD Primary Care Provider Active Regine DONOVAN TELEPHONE SERVICES SALES REPRESENTATIVE-C Attending Provider Active Team Status: Inactive Member Role Status Dates Dr. Aman Ragsdale MD Primary Care Provider Active Regine Morales NP TELEPHONE SERVICES SALES REPRESENTATIVE-C Attending Provider Active Team Status: Active Member [...] Provider Active KONRAD SÁNCHEZ Attending Provider Active Processing Operator Relationship Specialty Start Date End Date Delisa Estrella DO [address] [place] [address] PCP - General Family Medicine 03/01/21 Team Status: Inactive Member Role Status Dates Dr. Aman Ragsdale MD Primary Care Provider Active Dr. Rodrigue Saldaña MD Attending Provider Active Team Status: Active Member Role Status Dates Dr. Aman Ragsdale MD Primary Care Provider Active Rodrigue DONOVAN MD Attending Provider Active Processing Operator Relationship Specialty Start Date End Date Delisa Estrella DO [address] [place] [address] PCP - General Family Medicine 03/01/21 Processing Operator Relationship Specialty Start Date End Date Rodrigue Saldaña [address] [place] [address] PCP - General 11/16/23 Processing Operator Relationship Specialty Start Date End Date Rodrigue Saldaña [address] [place], [place] [id number] PCP - General 11/16/23 Processing Operator Relationship Specialty Start Date End Date Aren Saldañabe PCP - General 11/16/23 Processing Operator Relationship Specialty Start Date End Date Aren Saldañabe PCP - General 11/16/23 Processing Operator Relationship Specialty Start Date End Date OleTea gilmanongbe PCP - General 11/16/23 Processing Operator Relationship Specialty Start Date End Date OleRodrigue gilman PCP - General 11/16/23 Processing Operator Relationship Specialty Start Date End Date OleAren gilmanbe PCP - General 11/16/23 Team Status: Active [...] Provider Active Start: November 19, 2024 Regine Tickton OLS, TELEPHONE SERVICES SALES REPRESENTATIVE-C Attending Provider Active Start: November 19, 2024 Team Status: Active Member Role Status Dates Dr. Rodrigue Saldaña MD Primary Care Provider Active Start: December 03, 2024 Regine DONOVAN TELEPHONE SERVICES SALES REPRESENTATIVE-C Attending Provider Active Start: December 03, 2024 Team Status: Active Member Role Status Dates Dr. Rodrigue Saldaña MD Primary Care Provider Active Start: December 08, 2024 Rodrigue DONOVAN MD Attending Provider Active Start: December 08, 2024 Team Status: Active Member Role Status Dates Dr. Rodrigue Saldaña MD Primary Care Provider Active Start: December 17, 2024 Regine DONOVAN TELEPHONE SERVICES SALES REPRESENTATIVE-C Attending Provider Active Start: December 17, 2024 Team Status: Active Member Role/Relationship Status Dates Dr. Rodrigue Saldaña MD Primary Care Provider Active Team Status: Inactive Member Role/Relationship Status Dates Dr. Rodrigue Saldaña MD Primary Care Provider Active Start: December 03, 2024 End: December 03, 2024 Regine DONOVAN TELEPHONE SERVICES SALES REPRESENTATIVE-C Attending Provider Active Start: December 03, 2024 [...] End: December 10, 2024 Regine Morales NP TELEPHONE SERVICES SALES REPRESENTATIVE-C Attending Provider Active Start: December 10, 2024 End: December 10, 2024 Team Status: Inactive Member Role/Relationship Status Dates Dr. Rodrigue Saldaña MD Primary Care Provider Active Start: December 17, 2024 End: December 17, 2024 Regine DONOVAN TELEPHONE SERVICES SALES REPRESENTATIVE-C Attending Provider Active Start: December 17, 2024 End: December 17, 2024 Team Status: Inactive Member Role/Relationship Status Dates Dr. Rordigue Saldaña MD Primary Care Provider Active Start: [...] 2025 End: February 24, 2025 Regine Morales NP, NP-C Attending Provider Active Start: February 24, 2025 End: February 24, 2025 Team Status: Active Member Role/Relationship Status Dates Dr. Rodrigue Saldaña MD Primary Care Provider Active Start: February 25, 2025 YANELIS Cochran Attending Provider Active Start: February 25, 2025 YANELIS Cochran Referring Provider Active Start: February 25, 2025 [...] End: February 24, 2025 Regine Morales NP TELEPHONE SERVICES SALES REPRESENTATIVE-C Attending physician Active Start: February 24, 2025 End: February 24, 2025 Team Status: Active Member Role/Relationship Status Dates Dr. Rodrigue Saldaña MD Primary care physician Activ e Start: February 25, 2025 YANELIS Cochran Attending physician Active Start: February 25, 2025 YANELIS Cochran Referring Provider Active Start: February 25, 2025 [...] End: May 26, 2025 Regine Morales NP TELEPHONE SERVICES SALES REPRESENTATIVE-C Attending physician Active Start: May 26, 2025 End: May 26, 2025 Team Status: Inactive Member Role/Relationship Status Dates Dr. Rodrigue Saldaña MD Primary care physician Activ e Start: February 24, 2025 End: February 24, 2025 Regine Morales NP TELEPHONE SERVICES SALES REPRESENTATIVE-C Attending physician Active Start: February 24, 2025 End: February 24, 2025 Team Status: Active Member Role/Relationship Status Dates Dr. Rodrigue Saldaña MD Primary care physician Activ e Start: February 25, 2025 Regine DONOVAN NP-Gracia Attending physician Active Start: February 25, 2025 [...] End: May 26, 2025 Regine Morales NP, TELEPHONE SERVICES SALES REPRESENTATIVE-C Attending physician Active Start: May 26, 2025 End: May 26, 2025 Source Comments (unrecognize d section and content) In the event this informatio n is protected by the Federal Confidentiality of Alcohol and Drug Abuse Patient Records regulations: The Federal rules restrict any use of the information to criminally investigate or prosecute any alcohol or drug abuse patient.[facility] the event this information is protected by the Federal Confidentiality of Alcohol and Drug Abuse Patient Records regulations: The Federal rules restrict any use of the information to criminally investigate or prosecute any alcohol or drug abuse patient.[facility] the event this information is protected by the Federal Confidentiality of Alcohol and Drug Abuse Patient Records regulations: The Federal rules restrict any use of the information to criminally investigate or prosecute any alcohol or drug abuse patient.[facility] the event this information is protected by the Federal Confidentiality of Alcohol and Drug Abuse Patient Records regulations: The Federal rules restrict any use of the information to criminally investigate or prosecute any alcohol or drug abuse patient.[facility] the event this information is protected by the Federal Confidentiality of Alcohol and Drug Abuse Patient Records regulations: The Federal rules restrict any use of the information to criminally investigate or prosecute any alcohol or drug abuse patient.[facility] the event this information is protected by the Federal Confidentiality of Alcohol and Drug Abuse Patient Records regulations: The Federal rules restrict any use of the information to criminally investigate or prosecute any alcohol or drug abuse patient.[facility] the event this information is protected by the Federal Confidentiality of Alcohol and Drug Abuse Patient Records regulations: The Federal rules restrict any use of the information to criminally investigate or prosecute any alcohol or drug abuse patient.[facility] the event this information is protected by the Federal Confidentiality of Alcohol and Drug Abuse Patient Records regulations: The Federal rules restrict any use of the information to criminally investigate or prosecute any alcohol or drug abuse patient.[facility] the event this information is protected by the Federal Confidentiality of Alcohol and Drug Abuse Patient Records regulations: The Federal rules restrict any use of the information to criminally investigate or prosecute any alcohol or drug abuse patient.[facility] Reason for Visit (unrecogniz ed section and content) Reason Comments Schedule Surgery Reason Comments Post-op (Ophthalmology) Right Eye Reason Comments FORWARD ALL ORDERS TO [facility] Patient Update Reason Comments Appointment Previous patient Reason Comments appointment today Reason Comments Establish Care Assisted living [facility]. Rash Both legs- seeping w [...] BE BASED ON THE PRIMARY CLINICAL RECORDS. [employer] provides no warranty or guarantee of the accuracy or completeness of information in this document.
[2025-08-17 08:22] LABS: Hematocrit 37.8 % (37-47); Hemoglobin 11.8 g/dL (12.0-15.0); Immature Granulocytes Count 0.030 X10^3/uL (0.0-0.0); Mean Corp Hgb Conc 31.2 g/dL (32-36); Mean Corpuscular Volume 85.3 fL (81-99); Mean Platelet Vol. 9.9 fl (6.2-12.0); NRBC Flagged by Analyzer 0 % (0-5); Platelet Count 165 K/mm3 (150-450); RBC Distribution Width CV 15.9 % (11.6-14.6); RBC Distribution Width SD 49.2 fl (35.1-43.9); Red Blood Count 4.43 M/mm3 (4.2-5.4); White Blood Count 7.7 K/mm3 (4.4-11.0)
[2025-08-17 08:39] LABS: Anion Gap 13 (5-15); BUN 40 mg/dL (4-19); BUN/Creat Ratio 30.8 RATIO (10-20); Calcium,Total 9.1 mg/dL (7.6-11.0); Carbon Dioxide 23.6 mmol/L (21.0-32.0); Chloride 102 mmol/L (98-108); Glucose 111 mg/dL (70-99); Potassium 4.3 mmol/L (3.3-5.1)
== END ==
LOC: OLS.WHLTSB 04:00
PROVIDERS: PCP Internal Medicine; Referring Provider Internal Medicine; Visit Provider Internal Medicine
DX: E87.6 Hypokalemia (principal)
CPT/HCPCS: 36415; 80048; 85025